=== PATIENT | male | born 1950 | race Caucasian/White ===

== ENCOUNTER 2017-01-05 17:40 | Emergency (ER) | payer MEDICARE ==
[~2017-01-05] VITALS: Ht 170.2 cm; Wt 119.7 kg
[~2017-01-05 17:40] MED LIST: ASP325T PO; CYCL10TA9 PO; ETOD400T PO; EZET1TAB44 PO; HYDR-1231 PO; HYDR-2997 PO; INSASP10V SQ; INSU100I16 SQ; LISI40TA PO; MTF500T PO
[2017-01-05] MEDS ORDERED: fentaNYL INJECTION 100 MCG/2 ML AMP IVP STA (18:10)
--- NOTE | 2017-01-05 18:12 | ED Lower Extremity ---
General Chief Complaint: Lower Extremity Stated Complaint: POST OP/R FOOT PAIN AND TOE DISCOLORATION Nursing Triage Note: pt states his right big toe has been turning colors for approx. 3 days. toe appears blue, pulses are present. cap refill less than 3 seconds. pt states his whole right leg/foot/ankle are sore Nursing Sepsis Screen: No Definite Risk Source: patient Exam Limitations: other (PT DOES NOT KNOW ANY OF HIS MEDICATIONS AND DID NOT BRING LIST) History of Present Illness Time seen by provider: 17:55 Initial Comments PT ARRIVES VIA POV FROM HOME C/O PAIN TO RIGHT FOOT AND LEFT LEG FOR THE LAST 2-3 DAYS--STATES MOST PAIN IS IN HEEL, TOES AND CALF STATES HE CANNOT SLEEP DUE TO PAIN NO PARESTHESIAS OR MOTOR DEFICITS, FOOT IS VERY SENSITIVE TO LIGHT TOUCH NO SWELLING NO INJURY PT HAD LOWER BACK SURGERY [address] BUTT AT [facility]. PT STATES HE HAS BEEN HAVING SOME PAIN FROM HIS RIGHT HIP DOWN HIS LEG FOR THE LAST 1-2 WEEKS, BUT HAS NOT BEEN THIS BAD HAS ONLY SLIGHT PAIN IN HIS HIP/LOWER BACK WAS SEEN A WEEK AGO AT DR. BUTT'S OFFICE FOR STAPLE REMOVAL, AND WAS HAVING THIS PAIN THEN, JUST NOT BAD AND WAS NOT ADDRESSED AT THAT TIME. . HAS NOT ATTEMPTED TO FOLLOW UP WITH HER SINCE THEN FOR THIS PROBLEM--HAS ROUTINE POST OP APPOINTMENT 01/24/17 PT LATER STATES HE RAN OUT OF HIS HYDROCODONE 2-3 DAYS AGO PT LATER STATES HE HAD THIS PAIN PRIOR TO SURGERY PER EXTERNAL MED HISTORY, PT HAS BEEN PRESCRIBED NAPROXEN, BACLOFEN, GABAPENTIN AND HYDROCODONE SINCE SURGERY PT IS DIABETIC, BUT HAS NEVER HAD PROBLEMS WITH NEUROPATHY. PCP: [facility]. PIERCE PALENCIA Allergies and Home Medications Allergies Coded Allergies: No Known Drug Allergies (Unverified , 10/08/11) Home Medications Aspirin 325 Mg Tab, 325 MG PO DAILY, (Reported) Etodolac 400 Mg Tablet, 1 EACH PO TID, (Reported) Hydrocodone Bit/Acetaminophen 1 Tab Tablet, 1-2 TAB PO Q6H PRN for PAIN, #20 Prescribed by: JEFERSON VICTOR on 04/09/14 1152 Hydrocodone/Acetaminophen 1 Each Tablet, 1-2 EACH PO Q4H, #20 Prescribed by: SUMIT MANRIQUE on 01/05/17 1905 Insulin Aspart 10 Unit/0.1 Ml Vial, 25 UNIT SQ TID, #1 (Reported) Insulin Detemir 100 Unit/1 Ml Insuln.pen, 60 UNIT SQ DAILY, (Reported) Lisinopril 40 Mg Tablet, 40 MG PO DAILY, (Reported) Metformin Hcl 500 Mg Tab, 1,000 MG PO TID, (Reported) Constitutional: no symptoms reported Respiratory: no symptoms reported Cardiovascular: no symptoms reported Gastrointestinal: no symptoms reported Genitourinary: no symptoms reported Musculoskeletal: see HPI Skin: no symptoms reported Psychiatric/Neurological: No Symptoms Reported Past Gwhntvg-Benvxb-Iltwog Hx Patient Social History Alcohol Use: Denies Use Recreational Drug Use: No Smoking Status: Never a Smoker 2nd Hand Smoke Exposure: No Recent Foreign Travel: No Contact w/Someone Who Travel: No Recent Infectious Disease Expo: No Recent Hopitalizations: Yes (previous clean heart caths, back surgery approx 3 weeks ago) Seasonal Allergies Seasonal Allergies: No Surgeries HX Surgeries: Yes (LEFT KNEE SCOPE; LUMBAR SPINE SURGERY 12/2016--DR. BUTT/ [facility]; CARDIAC CATH X 2) Surgeries: Cardiac, Neurological, Orthopedic Respiratory Hx Respiratory Disorders: Yes (REFUSES TO WEAR CPAP) Respiratory Disorders: Sleep Apnea Cardiovascular Hx Cardiac Disorders: Yes (HEART CATH X2) Cardiac Disorders: Hypertension Neurological Hx Neurological Disorders: No Reproductive System Hx Reproductive Disorders: No Genitourinary Hx Genitourinary Disorders: No Gastrointestinal Hx Gastrointestinal Disorders: No Musculoskeletal Hx Musculoskeletal Disorders: Yes Musculoskeletal Disorders: Degenerate Disk Disease, Chronic Back Pain Endocrine Hx Endocrine Disorders: Yes Endocrine Disorders: Diabetes, Insulin dep HEENT HX ENT Disorders: No Cancer Hx Cancer: No Psychosocial Hx Psychiatric Problems: No Integumentary HX Skin/Integumentary Disorder: No Blood Transfusions Hx Blood Disorders: No Physical Exam Vital Signs Vital Sign - Last 12Hours 01/05/17 17:55 Temp 97.5 Pulse 81 Resp 20 B/P (MAP) 173/72 Pulse Ox 98 O2 Delivery Room Air Capillary Refill : Less Than 3 Seconds General Appearance: WD/WN, no apparent distress, obese Cardiovascular: normal peripheral pulses, regular rate, rhythm, no edema, no JVD, no murmur, other (PULSES +3/4 BILATERALLY) Respiratory: normal breath sounds, no respiratory distress, no accessory muscle use Gastrointestinal: non tender, soft Hips: bilateral hip non-tender, bilateral hip normal inspection, bilateral hip normal range of motion, bilateral hip no evidence of injury Legs: left leg normal inspection, right leg other (MILD RIGHT CALF TENDERNESS. NO CORDING. NEGATIVE NILES'S ) Knees: bilateral knee non-tender, bilateral knee normal inspection, bilateral knee normal range of motion, bilateral knee no evidence of injury Ankles: bilateral ankle non-tender, bilateral ankle normal inspection, bilateral ankle normal range of motion, bilateral ankle no evidence of injury Feet: right foot other (TENDERNESS TO DORSUM AND HEEL OF RIGHT FOOT. NO SKIN DISCOLORATION. NO SORES/WOUNDS. MOTOR/SENSORY/VASCULAR INTACT. RIGHT GREAT TOE WITH MYCOTIC CHANGES. ) Neurologic/Tendon: normal sensation (HYPERSENSITIVE TO PALPATION OF RIGHT FOOT) , normal motor functions, normal tendon functions Neurologic/Psychiatric: harness cutter II-XII nml as tested, no motor/sensory deficits, alert, normal mood/affect, oriented x 3 Skin: normal color, warm/dry Progress/Results/Core Measures Results/Orders Lab Results Laboratory Tests Test 01/05/17 18:13 Range/Units White Blood Count 8.3 4.3-11.0 10^3/uL Red Blood Count 4.46 4.35-5.85 10^6/uL Hemoglobin 12.5 L 13.3-17.7 G/DL Hematocrit 38 L 40-54 % Mean Corpuscular Volume 85 80-99 FL Mean Corpuscular Hemoglobin 28 25-34 PG Mean Corpuscular Hemoglobin Concent 33 32-36 G/DL Red Cell Distribution Width 13.7 10.0-14.5 % Platelet Count 249 130-400 10^3/uL Mean Platelet Volume 10.6 H 7.4-10.4 FL Neutrophils (%) (Auto) 66 42-75 % Lymphocytes (%) (Auto) 27 12-44 % Monocytes (%) (Auto) 5 0-12 % Eosinophils (%) (Auto) 2 0-10 % Basophils (%) (Auto) 1 0-10 % Neutrophils # (Auto) 5.5 1.8-7.8 X 10^3 Lymphocytes # (Auto) 2.2 1.0-4.0 X 10^3 Monocytes # (Auto) 0.4 0.0-1.0 X 10^3 Eosinophils # (Auto) 0.2 0.0-0.3 10^3/uL Basophils # (Auto) 0.1 0.0-0.1 10^3/uL Prothrombin Time 14.6 12.2-14.7 SEC INR Comment 1.2 0.8-1.4 Activated Partial Thromboplast Time 31 24-35 SEC Sodium Level 142 135-145 MMOL/L Potassium Level 4.7 3.6-5.0 MMOL/L Chloride Level 107 98-107 MMOL/L Carbon Dioxide Level 22 21-32 MMOL/L Anion Gap 13 5-14 MMOL/L Blood Urea Nitrogen 22 H 7-18 MG/DL Creatinine 1.59 H 0.60-1.30 MG/DL Estimat Glomerular Filtration Rate 44 BUN/Creatinine Ratio 14 Glucose Level 145 H 70-105 MG/DL Calcium Level 9.4 8.5-10.1 MG/DL Magnesium Level 2.0 1.8-2.4 MG/DL Total Bilirubin 0.4 0.1-1.0 MG/DL Aspartate Amino Transf (AST/SGOT) 23 5-34 U/L Alanine Aminotransferase (ALT/SGPT) 17 0-55 U/L Alkaline Phosphatase 71 40-136 U/L Total Protein 6.8 6.4-8.2 G/DL Albumin 3.8 3.2-4.5 G/DL My Orders Orders - SUMIT MANRIQUE DO Saline Lock/Iv-Start (01/05/17 18:07) Cbc With Automated Diff (01/05/17 18:07) Comprehensive Metabolic Panel (01/05/17 18:07) Magnesium (01/05/17 18:07) Protime With Inr (01/05/17 18:07) Partial Thromboplastin Time (01/05/17 18:07) Us Venous Lower Ext Rt (01/05/17 18:07) Fentanyl Injection (Sublimaze Injection (01/05/17 18:10) Vital Signs/I&O Vital Sign - Last 12Hours 01/05/17 01/05/17 17:55 19:27 Temp 97.5 97.6 Pulse 81 73 Resp 20 18 B/P (MAP) 173/72 Pulse Ox 98 97 O2 Delivery Room Air Blood Pressure Mean: 105 Progress Note : Progress Note COMPLETE PAIN RELIEF WITH FENTANYL Diagnostic Imaging Comments RIGHT LEG ULTRASOUND/DOPPLER--NO ACUTE PROCESS, PER RADIOLOGIST REPORT @ 1851 Reviewed: Reviewed by Me Departure Impression Impression: Primary Impression: CHRONIC LOWER BACK PAIN WITH RIGHT SIDED RADICULAR PAIN Additional Impression: S/P LUMBAR SPINE SURGERY Disposition: 01 HOME, SELF-CARE Condition: Improved Departure-Patient Inst. Referrals: [facility] (PCP/Family) Primary Care Physician Patient Instructions: Low Back Pain (DC), Radiculopathy (DC) Add. Discharge Instructions: CONTINUE YOUR REGULAR MEDICATIONS PRESCRIBED--INCLUDING NAPROXEN ( ANTI- INFLAMMATORY ) , GABAPENTIN( NERVE PAIN ) AND BACLOFEN ( MUSCLE RELAXANT ) FOLLOW UP WITH DR. BUTT THIS WEEK FOR FURTHER CARE All discharge instructions reviewed with patient and/or family. Voiced understanding. Scripts Hydrocodone/Acetaminophen (Hydrocodon-Acetaminoph 7.5-325) 1 Each Tablet 1-2 EACH PO Q4H for Pain, #20 TAB Prov: SUMIT MANRIQUE DO 01/05/17 SUMIT MANRIQUE DO January 05, 2017 18:12
[2017-01-05 18:32] LABS: BASOPHILS # (AUTO) 0.1 10^3/uL (0.0-0.1); BASOPHILS % (AUTO) 1 % (0-10); EOSINOPHILS # (AUTO) 0.2 10^3/uL (0.0-0.3); EOSINOPHILS % (AUTO) 2 % (0-10); LYMPHOCYTES # (AUTO) 2.2 X 10^3 (1.0-4.0); LYMPHOCYTES % (AUTO) 27 % (12-44); MEAN CORPUSCULAR HEMOGLOBIN 28 PG (25-34); MEAN CORPUSCULAR HGB CONC 33 G/DL (32-36); MEAN CORPUSCULAR VOLUME 85 FL (80-99); MEAN PLATELET VOLUME 10.6 FL (7.4-10.4); MONOCYTES # (AUTO) 0.4 X 10^3 (0.0-1.0); MONOCYTES % (AUTO) 5 % (0-12); NEUTROPHILS # (AUTO) 5.5 X 10^3 (1.8-7.8); NEUTROPHILS % (AUTO) 66 % (42-75); PLATELET COUNT 249 10^3/uL (130-400); RED BLOOD COUNT 4.46 10^6/uL (4.35-5.85); RED CELL DISTRIBUTION WIDTH 13.7 % (10.0-14.5); WHITE BLOOD COUNT 8.3 10^3/uL (4.3-11.0)
--- NOTE | 2017-01-05 18:43 | Diagnostic Imaging Report ---
PROCEDURE: US right lower extremity venous. TECHNIQUE: Multiple real-time grayscale images were obtained over the right lower extremity in various projections. Additional duplex Doppler and color Doppler images were also obtained. INDICATION: Right leg pain. COMPARISON STUDIES: None. FINDINGS: Right lower extremity venous Doppler with color-flow Doppler, compression, augmentation, and grayscale imaging demonstrates no evidence of DVT. No fluid collections are present. IMPRESSION: Negative right lower extremity venous Doppler. Dictated by: Dictated on workstation # [id number]
[2017-01-05 18:59] LABS: ALBUMIN 3.8 G/DL (3.2-4.5); BILIRUBIN,TOTAL 0.4 MG/DL (0.1-1.0); CALCIUM 9.4 MG/DL (8.5-10.1); CREATININE SERUM 1.59 MG/DL (0.60-1.30); POTASSIUM 4.7 MMOL/L (3.6-5.0); TOTAL PROTEIN 6.8 G/DL (6.4-8.2)
[2017-01-05] MEDS ORDERED: HYDR-3816 PO (19:05)
[2017-01-05 19:27] VITALS: BP 169/79
[2017-01-05 20:56] LABS: INR 1.2 (0.8-1.4); PROTHROMBIN TIME PATIENT 14.6 SEC (12.2-14.7)
== END 2017-01-05 19:27 | disposition home or self-care (01) ==
LOC: EDUNIT# 17:40 → ER 17:42
DX: M54.16 Radiculopathy, lumbar region (principal); M25.571 Pain in right ankle and joints of right foot; I10 Essential (primary) hypertension; E11.9 Type 2 diabetes mellitus without complications; Z79.82 Long term (current) use of aspirin; Z79.4 Long term (current) use of insulin; Z79.84 Long term (current) use of oral hypoglycemic drugs; Z98.890 Other specified postprocedural states
CPT/HCPCS: 36415; 80053; 83735; 85025; 85610; 85730

== ENCOUNTER 2017-06-06 11:25 | Emergency (ER) | payer MEDICARE ==
[~2017-06-06] VITALS: Ht 170.2 cm; Wt 122.9 kg
[~2017-06-06 11:25] MED LIST changes: +HYDR-3816 PO
--- OUTSIDE RECORDS SUMMARY | 2017-06-06 11:31 | XMS REPORT ---
Author Author NISHI PALENCIA [facility] Address [address] [place] [address] Care Team Providers Care Patent Prosecution Attorney Name Role Phone NISHI PALENCIA Unavailable PROBLEMS Type Condition ICD9-CM Code [id number] Code Onset Dates Condition Status SNOMED Code Problem Type 2 diabetes mellitus with hyperglycemia E11.65 Active 947141076 Problem Lumbago with sciatica, left side M54.42 Active 791544298 Problem Controlled type 2 diabetes mellitus without complication, without long -term current use of insulin E11.9 Active 240071758 Problem Type 2 diabetes mellitus with diabetic neuropathy, unspecified E11.40 Active 84865124 Problem Diabetes type 2, controlled E11.9 Active 18177183 Problem Diabetic mononeuropathy associated with type 2 diabetes mellitus E11.41 Active 845575459 Problem Neuropathy G62.9 Active 340434833 Problem Type 2 diabetes mellitus without complications E11.9 Active 429892245 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 712938496 Problem Slow transit constipation K59.01 Active 59638067 Problem Other chronic pain G89.29 Active 47401992 ALLERGIES No Known Allergies SOCIAL HISTORY Never Assessed PLAN OF CARE VITAL SIGNS Height 67 in 2016-10-05 Weight 263 lbs 2016-10-05 Temperature 97.9 degrees Fahrenheit 2016-10-05 Heart Rate 78 bpm 2016-10-05 Respiratory Rate 20 2016-10-05 BMI 41.19 kg/m2 2016-10-05 Blood pressure systolic 154 mmHg 2016-10-05 Blood pressure diastolic 86 mmHg 2016-10-05 MEDICATIONS Medication Instructions Dosage Frequency Start Date End Date Duration Status BD Ultra-Fine Pen [place] 29G X 12.7MM as directed 6h May, Active Humalog KwikPen 100 UNIT/ML Subcutaneous 3 times a day 30 units 8h December, Active Lisinopril 40 mg Orally Once a day 1 tablet 24h May, Active Metformin HCl 1000 MG Orally Twice a day 1 tablet with meals 12h May, Active Levemir FlexTouch 100 UNIT/ML Subcutaneous Once a day 90 units 24h May, Active [place] 5-325 MG Orally every 6 hrs 1 tablet as needed 6h Sep, Active Neurontin 300 MG Orally Three times a day as directed 8h Jun, Active Lipitor 20 mg Orally Once a day 1 tablet 24h May, Active Aspirin 325 MG Orally Once a day 1 tablet 24h Active RESULTS Name Result Date Reference Range A1C (IN HOUSE) 2016-10-05 A1C IN HOUSE 9.3 4.3 - 5.6 % Previous A1c 9.5 Lot [id number] Exp date 06/2018 [employer] 2016-10-05 PROCEDURES Procedure Date Ordered Result Body Site GLYCATED HEMOGLOBIN TEST Oct 05, 2016 No Charge Oct 05, 2016 FQ VISIT ESTABLISHED PATIENT Oct 05, 2016 IMMUNIZATIONS No Known Immunizations MEDICAL (GENERAL) HISTORY Type Description Date Medical History type II diabetes Medical History hyperlipidemia Medical History hypertension Medical History chronic pain back/knees Surgical History right knee arthroscopy 1994 Surgical History heart cath, 2010--clear Surgical History left knee arthroscopy 2010 Surgical History back surgery with rods 12/2016 Hospitalization History surgeries
--- OUTSIDE RECORDS SUMMARY | 2017-06-06 11:31 | XMS REPORT ---
Author Author NISHI PALENCIA [facility] Address [address] [place] [address] Care Team Providers Care Public Health Service Officer Name Role Phone NISHI PALENCIA Unavailable PROBLEMS Type Condition ICD9-CM Code [id number] Code Onset Dates Condition Status SNOMED Code Problem Diabetes type 2, controlled E11.9 Active 02710986 Problem Controlled type 2 diabetes mellitus without complication, without long -term current use of insulin E11.9 Active 139740708 Problem Type 2 diabetes mellitus with hyperglycemia E11.65 Active 170449283 Problem Type 2 diabetes mellitus with diabetic neuropathy, unspecified E11.40 Active 58729875 Problem Neuropathy G62.9 Active 161152097 Problem Slow transit constipation K59.01 Active 07836643 Problem 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 Active 387835593 Problem Lumbago with sciatica, left side M54.42 Active 299255006 Problem Other chronic pain G89.29 Active 33705490 Problem Type 2 diabetes mellitus without complications E11.9 Active 163341173 ALLERGIES Substance Reaction Event Type Date Status N.K.D.A. Unknown Non Drug Allergy Aug, Unknown SOCIAL HISTORY No smoking Hx information available PLAN OF CARE VITAL SIGNS Height 67 in 2016-09-07 Weight 263.5 lbs 2016-09-07 Temperature 98.1 degrees Fahrenheit 2016-09-07 Heart Rate 78 bpm 2016-09-07 Respiratory Rate 22 2016-09-07 BMI 41.27 kg/m2 2016-09-07 Blood pressure systolic 158 mmHg 2016-09-07 Blood pressure diastolic 82 mmHg 2016-09-07 MEDICATIONS Medication Instructions Dosage Frequency Start Date End Date Duration Status Metformin HCl 1000 MG Orally Twice a day 1 tablet with meals 12h May, Active Lisinopril 40 mg Orally Once a day 1 tablet 24h May, Active Neurontin 300 MG Orally Three times a day as directed 8h Jun, Active Levemir FlexTouch 100 UNIT/ML Subcutaneous Once a day 90 units 24h May, Active Lipitor 20 mg Orally Once a day 1 tablet 24h May, Active Aspirin 325 MG Orally Once a day 1 tablet 24h Active Humalog KwikPen 100 UNIT/ML Subcutaneous 3 times a day 30 units 8h December, Active BD Ultra-Fine Pen [place] 29G X 12.7MM as directed 6h May, Active [place] 5-325 MG Orally every 6 hrs 1 tablet as needed 6h Aug, Active RESULTS No Results PROCEDURES Procedure Date Ordered Related Diagnosis Body Site [facility] VISIT ESTABLISHED PATIENT Sep 07, 2016 Office Visit, Est Pt., Level 3 Sep 07, 2016 IMMUNIZATIONS No Known Immunizations
--- OUTSIDE RECORDS SUMMARY | 2017-06-06 11:33 | XMS REPORT ---
Author Author NISHI PALENCIA [facility] Address [address] [place] [address] Care Team Providers Care Manager Corporate Responsibility Name Role Phone NISHI PALENCIA Unavailable PROBLEMS Type Condition ICD9-CM Code [id number] Code Onset Dates Condition Status SNOMED Code Problem Diabetes type 2, controlled E11.9 Active 73787394 Problem Controlled type 2 diabetes mellitus without complication, without long -term current use of insulin E11.9 Active 366052183 Problem Type 2 diabetes mellitus with hyperglycemia E11.65 Active 164695608 Problem Type 2 diabetes mellitus with diabetic neuropathy, unspecified E11.40 Active 84747236 Problem Neuropathy G62.9 Active 671336305 Problem Slow transit constipation K59.01 Active 35560203 Problem 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 Active 030795201 Problem Lumbago with sciatica, left side M54.42 Active 830223126 Problem Other chronic pain G89.29 Active 48294360 Problem Type 2 diabetes mellitus without complications E11.9 Active 745576720 ALLERGIES Substance Reaction Event Type Date Status N.K.D.A. Unknown Non Drug Allergy Jul, Unknown SOCIAL HISTORY No smoking Hx information available PLAN OF CARE VITAL SIGNS Height 67 in 2016-08-06 Weight 272.3 lbs 2016-08-06 Temperature 98.3 degrees Fahrenheit 2016-08-06 Heart Rate 78 bpm 2016-08-06 Respiratory Rate 20 2016-08-06 BMI 42.64 kg/m2 2016-08-06 Blood pressure systolic 162 mmHg 2016-08-06 Blood pressure diastolic 78 mmHg 2016-08-06 MEDICATIONS Medication Instructions Dosage Frequency Start Date End Date Duration Status Levemir FlexTouch 100 UNIT/ML Subcutaneous Once a day 90 units 24h May, Active Lipitor 20 mg Orally Once a day 1 tablet 24h May, Active Lisinopril 40 mg Orally Once a day 1 tablet 24h May, Active BD Ultra-Fine Pen [place] 29G X 12.7MM as directed 6h May, Active Metformin HCl 1000 MG Orally Twice a day 1 tablet with meals 12h 05 May, 2015 Active Neurontin 300 MG Orally Three times a day as directed 8h 18 Jun, 2015 Active Humalog KwikPen 100 UNIT/ML Subcutaneous 3 times a day 30 units 8h December, Active Aspirin 325 MG Orally Once a day 1 tablet 24h Active Naproxen 500 MG 1 tablet 12h 15 Apr, 2014 Active [place] 5-325 MG Orally every 6 hrs 1 tablet as needed 6h 07 Jun, 2016 Active RESULTS No Results PROCEDURES Procedure Date Ordered Related Diagnosis Body Site [facility] VISIT ESTABLISHED PATIENT Aug 06, 2016 Office Visit, Est Pt., Level 3 Aug 06, 2016 IMMUNIZATIONS No Known Immunizations
--- OUTSIDE RECORDS SUMMARY | 2017-06-06 11:33 | XMS REPORT ---
Author Author NISHI PALENCIA [facility] Address [address] [place] [address] Care Team Providers Care Power Sewing Machine Operator Name Role Phone NISHI PALENCIA Unavailable PROBLEMS Type Condition ICD9-CM Code [id number] Code Onset Dates Condition Status SNOMED Code Problem Diabetes type 2, controlled E11.9 Active 12946139 Problem Controlled type 2 diabetes mellitus without complication, without long -term current use of insulin E11.9 Active 054469634 Problem Type 2 diabetes mellitus with hyperglycemia E11.65 Active 989399216 Problem Type 2 diabetes mellitus with diabetic neuropathy, unspecified E11.40 Active 24622029 Problem Neuropathy G62.9 Active 414318789 Problem Slow transit constipation K59.01 Active 88587171 Problem termite helper 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 Active 095462696 Problem Lumbago with sciatica, left side M54.42 Active 633485919 Problem Other chronic pain G89.29 Active 10626651 Problem Type 2 diabetes mellitus without complications E11.9 Active 489578771 ALLERGIES Unknown Allergies SOCIAL HISTORY No smoking Hx information available PLAN OF CARE VITAL SIGNS MEDICATIONS Unknown Medications RESULTS No Results PROCEDURES No Known procedures IMMUNIZATIONS No Known Immunizations
--- OUTSIDE RECORDS SUMMARY | 2017-06-06 11:33 | XMS REPORT ---
Author Author KARLEY KUMARI [facility] Address Unknown Care Team Providers Care Provisioning Specialist Name Role Phone KARLEY KUMARI Unavailable PROBLEMS Type Condition ICD9-CM Code [id number] Code Onset Dates Condition Status SNOMED Code Problem Diabetes type 2, controlled E11.9 Active 12944226 Problem Controlled type 2 diabetes mellitus without complication, without long -term current use of insulin E11.9 Active 618631004 Problem Type 2 diabetes mellitus with hyperglycemia E11.65 Active 719817278 Problem Type 2 diabetes mellitus with diabetic neuropathy, unspecified E11.40 Active 42039099 Problem Neuropathy G62.9 Active 441957765 Problem Slow transit constipation K59.01 Active 63300687 Problem open soaper tender 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 Active 268748763 Problem Lumbago with sciatica, left side M54.42 Active 786716429 Problem Other chronic pain G89.29 Active 84666534 Problem Type 2 diabetes mellitus without complications E11.9 Active 007297682 ALLERGIES Substance Reaction Event Type Date Status N.K.D.A. Unknown Non Drug Allergy Aug, Unknown SOCIAL HISTORY No smoking Hx information available PLAN OF CARE Activity Details Follow Up prn Reason:extraction VITAL SIGNS Height 67 in 2016-08-25 Blood pressure systolic 173 mmHg 2016-08-25 Blood pressure diastolic 96 mmHg 2016-08-25 MEDICATIONS Unknown Medications RESULTS No Results PROCEDURES Procedure Date Ordered Related Diagnosis Body Site Dental no charge Aug 25, 2016 IMMUNIZATIONS No Known Immunizations
--- OUTSIDE RECORDS SUMMARY | 2017-06-06 11:33 | XMS REPORT ---
Author Author JAIDEN MARTINEZ Organization [facility] Address [address] [place] [address] Care Team Providers Care Oncology Physician Assistant Name Role Phone CORA MARTINEZICE Unavailable PROBLEMS Type Condition ICD9-CM Code [id number] Code Onset Dates Condition Status SNOMED Code Problem Diabetes type 2, controlled E11.9 Active 44710856 Problem Controlled type 2 diabetes mellitus without complication, without long -term current use of insulin E11.9 Active 502676980 Problem Type 2 diabetes mellitus with hyperglycemia E11.65 Active 937373893 Problem Type 2 diabetes mellitus with diabetic neuropathy, unspecified E11.40 Active 69021516 Problem Neuropathy G62.9 Active 529377438 Problem Slow transit constipation K59.01 Active 98560372 Problem 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 Active 258595602 Problem Lumbago with sciatica, left side M54.42 Active 730730731 Problem Other chronic pain G89.29 Active 48524323 Problem Type 2 diabetes mellitus without complications E11.9 Active 417807022 ALLERGIES Substance Reaction Event Type Date Status N.K.D.A. Unknown Non Drug Allergy Aug, Unknown SOCIAL HISTORY No smoking Hx information available PLAN OF CARE Activity Details Follow Up prn Reason: VITAL SIGNS Height 67 in 2016-08-12 Weight 364.6 lbs 2016-08-12 Temperature 98.5 degrees Fahrenheit 2016-08-12 Heart Rate 88 bpm 2016-08-12 Respiratory Rate 20 2016-08-12 BMI 57.10 kg/m2 2016-08-12 Blood pressure systolic 146 mmHg 2016-08-12 Blood pressure diastolic 80 mmHg 2016-08-12 MEDICATIONS Medication Instructions Dosage Frequency Start Date End Date Duration Status [place] 5-325 MG Orally every 6 hrs 1 tablet as needed 6h 07 Jun, 2016 Active Naproxen 500 MG 1 tablet 12h 15 Apr, 2014 Active BD Ultra-Fine Pen [place] 29G X 12.7MM as directed 6h May, Active Metformin HCl 1000 MG Orally Twice a day 1 tablet with meals 12h May, Active Levemir FlexTouch 100 UNIT/ML Subcutaneous Once a day 90 units 24h May, Active Humalog KwikPen 100 UNIT/ML Subcutaneous 3 times a day 30 units 8h December, Active Lisinopril 40 mg Orally Once a day 1 tablet 24h May, Active Lipitor 20 mg Orally Once a day 1 tablet 24h May, Active Amoxicillin 500 MG Orally TID 2 tablets first dose, then 1 tablet three times per day 8h Aug, Aug, 10 day(s) Active Neurontin 300 MG Orally Three times a day as directed 8h Jun, Active Aspirin 325 MG Orally Once a day 1 tablet 24h Active RESULTS No Results PROCEDURES Procedure Date Ordered Related Diagnosis Body Site [facility] VISIT ESTABLISHED PATIENT Aug 12, 2016 Office Visit, Est Pt., Level 3 Aug 12, 2016 IMMUNIZATIONS No Known Immunizations
--- OUTSIDE RECORDS SUMMARY | 2017-06-06 11:36 | XMS REPORT ---
Author Author KARLEY KUMARI [facility] [address] DENTAL Address Unknown Care Team Providers Care Automatic Developer Name Role Phone KARLEY KUMARI Unavailable PROBLEMS Type Condition ICD9-CM Code FST16-UF Code Onset Dates Condition Status SNOMED Code Problem Diabetes type 2, controlled E11.9 Active 39829667 Problem Controlled type 2 diabetes mellitus without complication, without long -term current use of insulin E11.9 Active 516001254 Problem Type 2 diabetes mellitus with hyperglycemia E11.65 Active 085391259 Problem Type 2 diabetes mellitus with diabetic neuropathy, unspecified E11.40 Active 57009871 Problem Neuropathy G62.9 Active 253722477 Problem Slow transit constipation K59.01 Active 39575694 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 Unknown Non Drug Allergy Aug, Unknown SOCIAL HISTORY No smoking Hx information available PLAN OF CARE Activity Details Follow Up prn Reason:TE #26 VITAL SIGNS Blood pressure systolic 141 mmHg 2016-08-12 Blood pressure diastolic 71 mmHg 2016-08-12 MEDICATIONS Medication Instructions Dosage Frequency Start Date End Date Duration Status Morrow 5-325 MG Orally every 6 hrs 1 tablet as needed 6h Jun, Active Aspirin 325 MG Orally Once a day 1 tablet 24h Active Metformin HCl 1000 MG Orally Twice a day 1 tablet with meals 12h May, Active Neurontin 300 MG Orally Three times a day as directed 8h Jun, Active Humalog KwikPen 100 UNIT/ML Subcutaneous 3 times a day 30 units 8h December, Active BD Ultra-Fine Pen Jasper 29G X 12.7MM as directed 6h May, Active Levemir FlexTouch 100 UNIT/ML Subcutaneous Once a day 90 units 24h May, Active Naproxen 500 MG 1 tablet 12h 15 Apr, 2014 Active Amoxicillin 500 MG Orally TID 2 tablets first dose, then 1 tablet three times per day 8h Aug, Aug, 10 day(s) Active Lisinopril 40 mg Orally Once a day 1 tablet 24h May, Active Lipitor 20 mg Orally Once a day 1 tablet 24h May, Active RESULTS No Results PROCEDURES Procedure Date Ordered Related Diagnosis Body Site LTD ORAL EVALUATION - PROBLEM FOCUS Aug 12, 2016 INTRAORL-PERIAPICAL 1 FILM 24179 Aug 12, 2016 IMMUNIZATIONS No Known Immunizations
--- OUTSIDE RECORDS SUMMARY | 2017-06-06 11:37 | XMS REPORT | Continuity of Care Document ---
Author Author [facility] Organization [facility] Address Unknown Phone Unavailable Allergies Active Description Code Type Severity Reaction Onset Reported/Identified Relationship to Patient Clinical Status Yes No Known Drug Allergies [id number] Drug Allergy Unknown N/ A 10/08/2011 Medications Problems Date Dx Coded Attending Type Code Diagnosis Diagnosed By 02/09/2008 250.02 DIABETES MELLITUS TYPE II - UNCOMPLICATED, UNCONTROLLED 02/09/2008 ABBE CARO DO 250.02 DIABETES MELLITUS TYPE II - UNCOMPLICATED, UNCONTROLLED 02/09/2008 250.02 DIABETES MELLITUS TYPE II - UNCOMPLICATED, UNCONTROLLED 02/09/2008 ABBE CARO DO 250.02 DIABETES MELLITUS TYPE II - UNCOMPLICATED, UNCONTROLLED 02/09/2008 ABBE CARO DO 250.02 DIABETES MELLITUS TYPE II - UNCOMPLICATED, UNCONTROLLED 02/09/2008 ABBE CARO DO 250.02 DIABETES MELLITUS TYPE II - UNCOMPLICATED, UNCONTROLLED 02/09/2008 250.02 DIABETES MELLITUS TYPE II - UNCOMPLICATED, UNCONTROLLED 02/09/2008 250.02 DIABETES MELLITUS TYPE II - UNCOMPLICATED, UNCONTROLLED 02/09/2008 ABBE CARO DO 250.02 DIABETES MELLITUS TYPE II - UNCOMPLICATED, UNCONTROLLED 02/09/2008 DEANA NEGRETE APRN 250.02 DIABETES MELLITUS TYPE II - UNCOMPLICATED, UNCONTROLLED 02/09/2008 NISHI PALENCIA APRN 250.02 DIABETES MELLITUS TYPE II - UNCOMPLICATED , UNCONTROLLED 02/09/2008 NISHI PALENCIA APRN 250.02 DIABETES MELLITUS TYPE II - UNCOMPLICATED , UNCONTROLLED 02/09/2008 NISHI PALENCIA APRN 250.02 DIABETES MELLITUS TYPE II - UNCOMPLICATED , UNCONTROLLED 02/09/2008 NISHI PALENCIA APRN 250.02 DIABETES MELLITUS TYPE II - UNCOMPLICATED , UNCONTROLLED 02/09/2008 ZULMA PATINO APRN 250.02 DIABETES MELLITUS TYPE II - UNCOMPLICATED, UNCONTROLLED 02/09/2008 NISHI PALENCIA APRN 250.02 DIABETES MELLITUS TYPE II - UNCOMPLICATED , UNCONTROLLED 02/09/2008 NISHI PALENCIA APRN 250.02 DIABETES MELLITUS TYPE II - UNCOMPLICATED , UNCONTROLLED 02/09/2008 NISHI PALENCIA APRN 250.02 DIABETES MELLITUS TYPE II - UNCOMPLICATED , UNCONTROLLED 02/09/2008 NISHI PALENCIA APRN T 250.02 DIABETES MELLITUS TYPE II - UNCOMPLICATED , UNCONTROLLED 02/09/2008 NISHI PALENCIA APRN 250.02 DIABETES MELLITUS TYPE II - UNCOMPLICATED , UNCONTROLLED 05/15/2008 250.00 DIABETES MELLITUS 05/15/2008 CARO DO, ABBE K 250.00 DIABETES MELLITUS 05/15/2008 250.00 DIABETES MELLITUS 05/15/2008 CARO DO, ABBE K 250.00 DIABETES MELLITUS POORLY CONTROLLED 05/15/2008 CARO DO, ABBE K 250.00 DIABETES MELLITUS POORLY CONTROLLED 05/15/2008 CARO DO, ABBE K 250.00 DIABETES MELLITUS POORLY CONTROLLED 05/15/2008 250.00 DIABETES MELLITUS POORLY CONTROLLED 05/15/2008 250.00 DIABETES MELLITUS POORLY CONTROLLED 05/15/2008 CARO DO, ABBE K 250.00 DIABETES MELLITUS POORLY CONTROLLED 05/15/2008 DEANA NEGRETE APRN N 250.00 DIABETES MELLITUS POORLY CONTROLLED 05/15/2008 NISHI PALENCIA APRN T 250.00 DIABETES MELLITUS POORLY CONTROLLED 05/15/2008 NISHI PALENCIA APRN T 250.00 DIABETES MELLITUS POORLY CONTROLLED 05/15/2008 NISHI PALENCIA APRN T 250.00 DIABETES MELLITUS POORLY CONTROLLED 05/15/2008 NISHI PALENCIA APRN T 250.00 DIABETES MELLITUS POORLY CONTROLLED 05/15/2008 ZULMA PATINO APRN 250.00 DIABETES MELLITUS POORLY CONTROLLED 05/15/2008 NISHI PALENCIA APRN T 250.00 DIABETES MELLITUS POORLY CONTROLLED 05/15/2008 NISHI PALENCIA APRN T 250.00 DIABETES MELLITUS POORLY CONTROLLED 05/15/2008 NISHI PALENCIA APRN T 250.00 DIABETES MELLITUS POORLY CONTROLLED 05/15/2008 NISHI PALENCIA APRN T 250.00 DIABETES MELLITUS POORLY CONTROLLED 05/15/2008 NISHI PALENCIA APRN T 250.00 DIABETES MELLITUS POORLY CONTROLLED 09/20/2008 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 FAMILIAL HYPERCHOLESTEROLEMIA 09/20/2008 278.02 OVERWEIGHT 09/20/2008 CARO DO, ABBE K 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 FAMILIAL HYPERCHOLESTEROLEMIA 09/20/2008 CARO DO, ABBE K 278.02 OVERWEIGHT 09/20/2008 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 FAMILIAL HYPERCHOLESTEROLEMIA 09/20/2008 278.02 OVERWEIGHT 09/20/2008 CARO DO, ABBE K 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 FAMILIAL HYPERCHOLESTEROLEMIA 09/20/2008 CAOR DO, ABBE K 278.02 OVERWEIGHT 09/20/2008 CARO DO, ABBE K 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 FAMILIAL HYPERCHOLESTEROLEMIA 09/20/2008 CARO DO, ABBE K 278.02 OVERWEIGHT 09/20/2008 CARO DO, ABBE K 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 FAMILIAL HYPERCHOLESTEROLEMIA 09/20/2008 CARO DO, ABBE K 278.02 OVERWEIGHT 09/20/2008 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 FAMILIAL HYPERCHOLESTEROLEMIA 09/20/2008 278.02 OVERWEIGHT 09/20/2008 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 FAMILIAL HYPERCHOLESTEROLEMIA 09/20/2008 278.02 OVERWEIGHT 09/20/2008 CARO DO, ABBE K 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 FAMILIAL HYPERCHOLESTEROLEMIA 09/20/2008 CARO DO, ABBE K 278.02 OVERWEIGHT 09/20/2008 NICHOLS CASHRADHIKA SPONGE DIVERMARCOS AbadCY N 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 FAMILIAL HYPERCHOLESTEROLEMIA 09/20/2008 MAGDALENA ANDINO APRN, DEANA N 278.02 OVERWEIGHT 09/20/2008 NISHI PALENCIA APRN 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 FAMILIAL HYPERCHOLESTEROLEMIA 09/20/2008 NISHI PALENCIA APRN 278.02 OVERWEIGHT 09/20/2008 NISHI PALENCIA APRN 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 FAMILIAL HYPERCHOLESTEROLEMIA 09/20/2008 NISHI PALENCIA APRN 278.02 OVERWEIGHT 09/20/2008 NISHI PALENCIA APRN 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 FAMILIAL HYPERCHOLESTEROLEMIA 09/20/2008 NISHI PALENCIA APRN T 278.02 OVERWEIGHT 09/20/2008 NISHI PALENCIA APRN T 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 FAMILIAL HYPERCHOLESTEROLEMIA 09/20/2008 NISHI PALENCIA APRN T 278.02 OVERWEIGHT 09/20/2008 LES PATINO APRNRICIA R 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 FAMILIAL HYPERCHOLESTEROLEMIA 09/20/2008 CAREY JOHNSON ZULMA R 278.02 OVERWEIGHT 09/20/2008 NISHI PALENCIA APRN T 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 FAMILIAL HYPERCHOLESTEROLEMIA 09/20/2008 NISHI PALENCIA APRN T 278.02 OVERWEIGHT 09/20/2008 NISHI PALENCIA APRN T 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 FAMILIAL HYPERCHOLESTEROLEMIA 09/20/2008 NISHI PALENCIA APRN T 278.02 OVERWEIGHT 09/20/2008 NISHI PALENCIA APRN T 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 FAMILIAL HYPERCHOLESTEROLEMIA 09/20/2008 NISHI PALENCIA APRN T 278.02 OVERWEIGHT 09/20/2008 NISHI PALENCIA APRN T 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 FAMILIAL HYPERCHOLESTEROLEMIA 09/20/2008 NISHI PALENCIA APRN T 278.02 OVERWEIGHT 09/20/2008 NISHI PALENCIA APRN T 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 FAMILIAL HYPERCHOLESTEROLEMIA 09/20/2008 NISHI PALENCIA APRN T 278.02 OVERWEIGHT 01/24/2009 959.09 Other And Unspecified Injury To Face And Neck 01/24/2009 CARO DOABBE 959.09 Other And Unspecified Injury To Face And Neck 01/24/2009 959.09 Other And Unspecified Injury To Face And Neck 01/24/2009 CARO DOABBE K 959.09 Other And Unspecified Injury To Face And Neck 01/24/2009 CARO DOSTACYA K 959.09 Other And Unspecified Injury To Face And Neck 01/24/2009 CARO DO, ABBE K 959.09 Other And Unspecified Injury To Face And Neck 01/24/2009 959.09 Other And Unspecified Injury To Face And Neck 01/24/2009 959.09 Other And Unspecified Injury To Face And Neck 01/24/2009 ABBE CARO DO 959.09 Other And Unspecified Injury To Face And Neck 01/24/2009 DEANA NEGRETE APRN 959.09 Other And Unspecified Injury To Face And Neck 01/24/2009 NISHI PALENCIA APRN 959.09 Other And Unspecified Injury To Face And Neck 01/24/2009 NISHI PALENCIA APRN 959.09 Other And Unspecified Injury To Face And Neck 01/24/2009 NISHI PALENCIA APRN 959.09 Other And Unspecified Injury To Face And Neck 01/24/2009 NISHI PALENCIA APRN T 959.09 Other And Unspecified Injury To Face And Neck 01/24/2009 ZULMA PATINO APRN 959.09 Other And Unspecified Injury To Face And Neck 01/24/2009 NISHI PALENCIA APRN 959.09 Other And Unspecified Injury To Face And Neck 01/24/2009 NISHI PALENCIA APRN T 959.09 Other And Unspecified Injury To Face And Neck 01/24/2009 NISHI PALENCIA APRN 959.09 Other And Unspecified Injury To Face And Neck 01/24/2009 NISHI PALENCIA APRN T 959.09 Other And Unspecified Injury To Face And Neck 01/24/2009 NISHI PALENCIA APRN 959.09 Other And Unspecified Injury To Face And Neck 11/07/2009 724.2 LUMBAGO 11/07/2009 ABBE CARO DO 724.2 LUMBAGO 11/07/2009 724.2 lower back pain 11/07/2009 CARO DO, ABBE K 724.2 lower back pain 11/07/2009 CARO DO, ABBE K 724.2 lower back pain 11/07/2009 CARO DO, ABBE K 724.2 lower back pain 11/07/2009 724.2 lower back pain 11/07/2009 724.2 lower back pain 11/07/2009 CARO DO, ABBE K 724.2 lower back pain 11/07/2009 MAGDALENA ANDINO SPONGE DIVER, DEANA N 724.2 lower back pain 11/07/2009 SLIME SPONGE DIVER, NISHI T 724.2 lower back pain 11/07/2009 SLIME SPONGE DIVER, NISHI T 724.2 lower back pain 11/07/2009 SLIME SPONGE DIVER, NISHI T 724.2 lower back pain 11/07/2009 SLIME SPONGE DIVER, NISHI T 724.2 lower back pain 11/07/2009 CAREY SPONGE DIVER, ZULMA R 724.2 lower back pain 11/07/2009 SLIME SPONGE DIVER, NISHI T 724.2 lower back pain 11/07/2009 SLIME SPONGE DIVER, NISHI T 724.2 lower back pain 11/07/2009 SLIME SPONGE DIVER, NISHI T 724.2 lower back pain 11/07/2009 SLIME SPONGE DIVER, NISHI T 724.2 lower back pain 11/07/2009 SLIME SPONGE DIVER, NISHI T 724.2 lower back pain 01/21/2010 465.9 Upper Respiratory Infection 01/21/2010 786.2 Cough 01/21/2010 CARO DO, ABBE K 465.9 Upper Respiratory Infection 01/21/2010 CARO DO, ABBE K 786.2 Cough 01/21/2010 465.9 Upper Respiratory Infection 01/21/2010 786.2 Cough 01/21/2010 CARO DO, ABBE K 465.9 Upper Respiratory Infection 01/21/2010 CARO DO, ABBE K 786.2 Cough 01/21/2010 CARO DO, ABBE K 465.9 Upper Respiratory Infection 01/21/2010 CARO DO, ABBE K 786.2 Cough 01/21/2010 CARO DO, ABBE K 465.9 Upper Respiratory Infection 01/21/2010 CARO DO, ABBE K 786.2 Cough 01/21/2010 465.9 Upper Respiratory Infection 01/21/2010 786.2 Cough 01/21/2010 465.9 Upper Respiratory Infection 01/21/2010 786.2 Cough 01/21/2010 CARO DO, ABBE K 465.9 Upper Respiratory Infection 01/21/2010 CARO DO, ABBE K 786.2 Cough 01/21/2010 NICHOLS CASHERO SPONGE DIVER, DEANA N 465.9 Upper Respiratory Infection 01/21/2010 NICHOLS CASHERO SPONGE DIVER, DEANA N 786.2 Cough 01/21/2010 SLIME SPONGE DIVER, NISHI T 465.9 Upper Respiratory Infection 01/21/2010 SLIME SPONGE DIVER, NISHI T 786.2 Cough 01/21/2010 SLIME SPONGE DIVER, NISHI T 465.9 Upper Respiratory Infection 01/21/2010 SLIME SPONGE DIVER, NISHI T 786.2 Cough 01/21/2010 SLIME SPONGE DIVER, NISHI T 465.9 Upper Respiratory Infection 01/21/2010 SLIME SPONGE DIVER, NISHI T 786.2 Cough 01/21/2010 SLIME SPONGE DIVER, NISHI T 465.9 Upper Respiratory Infection 01/21/2010 SLIME SPONGE DIVER, NISHI T 786.2 Cough 01/21/2010 PATINO SPONGE DIVER, ZULMA R 465.9 Upper Respiratory Infection 01/21/2010 PATINO SPONGE DIVER, ZULMA R 786.2 Cough 01/21/2010 SLIME SPONGE DIVER, NISHI T 465.9 Upper Respiratory Infection 01/21/2010 SLIME SPONGE DIVER, NISHI T 786.2 Cough 01/21/2010 SLIME SPONGE DIVER, NISHI T 465.9 Upper Respiratory Infection 01/21/2010 SLIME SPONGE DIVER, NISHI T 786.2 Cough 01/21/2010 SLIME SPONGE DIVER, NISHI T 465.9 Upper Respiratory Infection 01/21/2010 SLIME SPONGE DIVER, NISHI T 786.2 Cough 01/21/2010 SLIME SPONGE DIVER, NISHI T 465.9 Upper Respiratory Infection 01/21/2010 SLIME SPONGE DIVER, NISHI T 786.2 Cough 01/21/2010 SLIME SPONGE DIVER, NISHI T 465.9 Upper Respiratory Infection 01/21/2010 SLIME SPONGE DIVER, NISHI T 786.2 Cough 03/06/2010 110.4 Dermatophytosis, Of Foot 03/06/2010 CARO DO, ABBE K 110.4 Dermatophytosis, Of Foot 03/06/2010 110.4 Dermatophytosis, Of Foot 03/06/2010 CARO ABBE KIRAN K 110.4 Dermatophytosis, Of Foot 03/06/2010 CARO DO, ABBE K 110.4 Dermatophytosis, Of Foot 03/06/2010 CARO DO, ABBE K 110.4 Dermatophytosis, Of Foot 03/06/2010 110.4 Dermatophytosis, Of Foot 03/06/2010 110.4 Dermatophytosis, Of Foot 03/06/2010 CARO DO, ABBE K 110.4 Dermatophytosis, Of Foot 03/06/2010 MAGDALENA ANDINO APRN, DEANA N 110.4 Dermatophytosis, Of Foot 03/06/2010 NISHI PALENCIA APRN 110.4 Dermatophytosis, Of Foot 03/06/2010 NISHI PALENCIA APRN 110.4 Dermatophytosis, Of Foot 03/06/2010 NISHI PALENCIA APRN 110.4 Dermatophytosis, Of Foot 03/06/2010 NISHI PALENCIA APRN 110.4 Dermatophytosis, Of Foot 03/06/2010 ZULMA PATINO APRN 110.4 Dermatophytosis, Of Foot 03/06/2010 NISHI PALENCIA APRN 110.4 Dermatophytosis, Of Foot 03/06/2010 NISHI PALENCIA APRN T 110.4 Dermatophytosis, Of Foot 03/06/2010 NISHI PALENCIA APRN T 110.4 Dermatophytosis, Of Foot 03/06/2010 NISHI PALENCIA APRN 110.4 Dermatophytosis, Of Foot 03/06/2010 NISHI PALENCIA APRN T 110.4 Dermatophytosis, Of Foot 07/15/2010 466.0 Bronchitis, Acute 07/15/2010 780.79 Malaise And Fatigue 07/15/2010 CARO DO, ABBE K 466.0 Bronchitis, Acute 07/15/2010 CARO DO, ABBE K 780.79 Malaise And Fatigue 07/15/2010 466.0 Bronchitis, Acute 07/15/2010 780.79 Malaise And Fatigue 07/15/2010 CARO DO, ABBE K 466.0 Bronchitis, Acute 07/15/2010 CARO DO, ABBE K 780.79 Malaise And Fatigue 07/15/2010 CARO DO, ABBE K 466.0 Bronchitis, Acute 07/15/2010 CARO DO, ABBE K 780.79 Malaise And Fatigue 07/15/2010 CARO DO, ABBE K 466.0 Bronchitis, Acute 07/15/2010 CARO DO, ABBE K 780.79 Malaise And Fatigue 07/15/2010 466.0 Bronchitis, Acute 07/15/2010 780.79 Malaise And Fatigue 07/15/2010 466.0 Bronchitis, Acute 07/15/2010 780.79 Malaise And Fatigue 07/15/2010 CARO DO, ABBE K 466.0 Bronchitis, Acute 07/15/2010 CARO DO, ABBE K 780.79 Malaise And Fatigue 07/15/2010 NICHOLS CASHERO SPONGE DIVER, DEANA N 466.0 Bronchitis, Acute 07/15/2010 NICHOLS CASHERO SPONGE DIVER, DEANA N 780.79 Malaise And Fatigue 07/15/2010 SLIME JOHNSON NISHI T 466.0 Bronchitis, Acute 07/15/2010 SLIME BARRONNINSHI T 780.79 Malaise And Fatigue 07/15/2010 SLIME JOHNSON NISHI T 466.0 Bronchitis, Acute 07/15/2010 NISHI PALENCIA APRN T 780.79 Malaise And Fatigue 07/15/2010 NISHI PALENCIA APRN T 466.0 Bronchitis, Acute 07/15/2010 NISHI PALENCIA APRN T 780.79 Malaise And Fatigue 07/15/2010 SLIME JOHNSON NISHI T 466.0 Bronchitis, Acute 07/15/2010 SLIME BARRONN NISHI T 780.79 Malaise And Fatigue 07/15/2010 SILVA PATINO APRNIA R 466.0 Bronchitis, Acute 07/15/2010 CAREY BARRONN ZULMA R 780.79 Malaise And Fatigue 07/15/2010 SLIME JOHNSON NISHI T 466.0 Bronchitis, Acute 07/15/2010 SLIME JOHNSON NISHI T 780.79 Malaise And Fatigue 07/15/2010 SLIME JOHNSON NISHI T 466.0 Bronchitis, Acute 07/15/2010 SLIME BARRONN NISHI T 780.79 Malaise And Fatigue 07/15/2010 SLIME BARRONN NISHI T 466.0 Bronchitis, Acute 07/15/2010 SLIME BARRONN NISHI T 780.79 Malaise And Fatigue 07/15/2010 SLIME BARRONN NISHI T 466.0 Bronchitis, Acute 07/15/2010 NISHI PALENCIA APRN T 780.79 Malaise And Fatigue 07/15/2010 SLIME JOHNSON NISHI T 466.0 Bronchitis, Acute 07/15/2010 SLIME BARRONN NISHI T 780.79 Malaise And Fatigue 01/31/2011 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 01/31/2011 401.1 HYPERTENSION, BENIGN ESSENTIAL 01/31/2011 GORDO DO ABBE K 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 01/31/2011 CARO DO ABBE K 401.1 HYPERTENSION, BENIGN ESSENTIAL 01/31/2011 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 01/31/2011 401.1 ESSENTIAL HYPERTENSION BENIGN 01/31/2011 GORDO DO ABBE K 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 01/31/2011 CARO DO ABBE K 401.1 ESSENTIAL HYPERTENSION BENIGN 01/31/2011 CARO DO ABBE K 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 01/31/2011 CARO DO ABBE K 401.1 ESSENTIAL HYPERTENSION BENIGN 01/31/2011 CARO DO ABBE K 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 01/31/2011 STACY CARO DOA K 401.1 ESSENTIAL HYPERTENSION BENIGN 01/31/2011 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 01/31/2011 401.1 ESSENTIAL HYPERTENSION BENIGN 01/31/2011 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 01/31/2011 401.1 ESSENTIAL HYPERTENSION BENIGN 01/31/2011 STACY CARO DOA K 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 01/31/2011 STACY CARO DOA K 401.1 ESSENTIAL HYPERTENSION BENIGN 01/31/2011 DEANA NEGRETE APRN N 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 01/31/2011 DEANA NEGRETE APRN N 401.1 ESSENTIAL HYPERTENSION BENIGN 01/31/2011 NISHI PALENCIA APRN 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 01/31/2011 NISHI PALENCIA APRN 401.1 ESSENTIAL HYPERTENSION BENIGN 01/31/2011 NISHI PALENCIA APRN 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 01/31/2011 NISHI PALENCIA APRN 401.1 ESSENTIAL HYPERTENSION BENIGN 01/31/2011 NISHI PALENCIA APRN 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 01/31/2011 NISHI PALENCIA APRN 401.1 ESSENTIAL HYPERTENSION BENIGN 01/31/2011 NISHI PALENCIA APRN 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 01/31/2011 NISHI PALENCIA APRN T 401.1 ESSENTIAL HYPERTENSION BENIGN 01/31/2011 ZULMA PATINO APRN R 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 01/31/2011 ZULMA PATINO APRN R 401.1 ESSENTIAL HYPERTENSION BENIGN 01/31/2011 NISHI PALENCIA APRN 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 01/31/2011 NISHI PALENCIA APRN 401.1 ESSENTIAL HYPERTENSION BENIGN 01/31/2011 NISHI PALENCIA APRN 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 01/31/2011 NISHI PALENCIA APRN 401.1 ESSENTIAL HYPERTENSION BENIGN 01/31/2011 NISHI PALENCIA APRN 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 01/31/2011 NISHI PALENCIA APRN 401.1 ESSENTIAL HYPERTENSION BENIGN 01/31/2011 NISHI PALENCIA APRN 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 01/31/2011 NISHI PALENCIA APRN 401.1 ESSENTIAL HYPERTENSION BENIGN 01/31/2011 NISHI PALENCIA APRN 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 01/31/2011 NISHI PALENCIA APRN 401.1 ESSENTIAL HYPERTENSION BENIGN 10/08/2011 786.50 CHEST PAIN 10/08/2011 CARO DO, ABBE K 786.50 CHEST PAIN 10/08/2011 786.50 CHEST PAIN 10/08/2011 CARO DO, ABBE K 786.50 CHEST PAIN 10/08/2011 CARO DO, ABBE K 786.50 CHEST PAIN 10/08/2011 CARO DO, ABBE K 786.50 CHEST PAIN 10/08/2011 786.50 CHEST PAIN 10/08/2011 786.50 CHEST PAIN 10/08/2011 CARO DO, ABBE K 786.50 CHEST PAIN 10/08/2011 DEANA NEGRETE APRN 786.50 CHEST PAIN 10/08/2011 NISHI PALENCIA APRN 786.50 CHEST PAIN 10/08/2011 NISHI PALENCIA APRN 786.50 CHEST PAIN 10/08/2011 NISHI PALENCIA APRN T 786.50 CHEST PAIN 10/08/2011 NISHI PALENCIA APRN T 786.50 CHEST PAIN 10/08/2011 ZULMA PATINO APRN 786.50 CHEST PAIN 10/08/2011 NISHI PALENCIA APRN 786.50 CHEST PAIN 10/08/2011 NISHI PALENCIA APRN 786.50 CHEST PAIN 10/08/2011 NISHI PALENCIA APRN 786.50 CHEST PAIN 10/08/2011 NISHI PALENCIA APRN 786.50 CHEST PAIN 10/08/2011 NISHI PALENCIA APRN 786.50 CHEST PAIN 10/08/2011 Ot 250.00 DIAB FAISAL WO COMPL, TYPE II OR UNSPEC TY 10/08/2011 Ot 722.52 LUMB/LUMBOSAC DISC DEGEN 10/08/2011 Ot 724.8 OTHER BACK SYMPTOMS 10/08/2011 Ot 786.50 CHEST PAIN NOS 10/08/2011 Ot V58.67 LONG-TERM (CURRENT) USE OF INSULIN 10/08/2011 Ot V58.69 OTH MED,LT,CURRENT USE 10/21/2011 Ot 250.00 DIAB FAISAL WO COMPL, TYPE II OR UNSPEC TY 10/21/2011 Ot 272.4 HYPERLIPIDEMIA NEC/NOS 10/21/2011 Ot 278.00 OBESITY, NOS 10/21/2011 Ot 401.9 HYPERTENSION NOS 10/21/2011 Ot 414.01 CORONARY ATHEROSCLEROSIS OF [place] CORON 10/21/2011 Ot 724.5 BACKACHE NOS 10/21/2011 Ot 786.50 CHEST PAIN NOS 10/21/2011 Ot 794.30 ABN CARDIOVASC STUDY NOS 10/21/2011 Ot V17.49 FAMILY HISTORY OF OTHER CARDIOVASCULAR D 10/21/2011 Ot V58.66 LONG-TERM (CURRENT) USE OF ASPIRIN 10/21/2011 Ot V58.67 LONG-TERM (CURRENT) USE OF INSULIN 10/21/2011 Ot V58.69 OTH MED,LT,CURRENT USE 10/21/2011 Ot V85.41 BODY MASS INDEX 40.0-44.9, ADULT 03/18/2012 729.1 MYALGIA AND MYOSITIS UNSPECIFIED 03/18/2012 ABBE CARO DO 729.1 MYALGIA AND MYOSITIS UNSPECIFIED 03/18/2012 729.1 MYALGIA AND MYOSITIS UNSPECIFIED 03/18/2012 ABBE CARO DO 729.1 MYALGIA AND MYOSITIS UNSPECIFIED 03/18/2012 ABBE CARO DO 729.1 MYALGIA AND MYOSITIS UNSPECIFIED 03/18/2012 ABBE CARO DO K 729.1 MYALGIA AND MYOSITIS UNSPECIFIED 03/18/2012 729.1 MYALGIA AND MYOSITIS UNSPECIFIED 03/18/2012 729.1 MYALGIA AND MYOSITIS UNSPECIFIED 03/18/2012 ABBE CARO DO 729.1 MYALGIA AND MYOSITIS UNSPECIFIED 03/18/2012 DEANA NEGRETE APRN 729.1 MYALGIA AND MYOSITIS UNSPECIFIED 03/18/2012 NISHI PALENCIA APRN 729.1 MYALGIA AND MYOSITIS UNSPECIFIED 03/18/2012 NISHI PALENCIA APRN 729.1 MYALGIA AND MYOSITIS UNSPECIFIED 03/18/2012 NISHI PALENCIA APRN 729.1 MYALGIA AND MYOSITIS UNSPECIFIED 03/18/2012 NISHI PALENCIA APRN 729.1 MYALGIA AND MYOSITIS UNSPECIFIED 03/18/2012 ZULMA PATINO APRN 729.1 MYALGIA AND MYOSITIS UNSPECIFIED 03/18/2012 NISHI PALENCIA APRN 729.1 MYALGIA AND MYOSITIS UNSPECIFIED 03/18/2012 NISHI PALENCIA APRN 729.1 MYALGIA AND MYOSITIS UNSPECIFIED 03/18/2012 NISHI PALENCIA APRN 729.1 MYALGIA AND MYOSITIS UNSPECIFIED 03/18/2012 NISHI PALENCIA APRN 729.1 MYALGIA AND MYOSITIS UNSPECIFIED 03/18/2012 NISHI PALENCIA APRN 729.1 MYALGIA AND MYOSITIS UNSPECIFIED 10/13/2012 ABBE CARO DO 709.9 skin lesion [Sx] 10/13/2012 ABBE CARO DO V70.0 Preventive Medicine Estab Patient Checkup Adult 40-64 10/13/2012 ABBE CARO DO 709.9 skin lesion [Sx] 10/13/2012 ABBE CARO DO V70.0 Preventive Medicine Estab Patient Checkup Adult 40-64 10/13/2012 GORDO KIRAN, ABBE K 709.9 skin lesion [Sx] 10/13/2012 CARO , ABBE K V70.0 Preventive Medicine Estab Patient Checkup Adult 40-64 10/13/2012 709.9 skin lesion [Sx] 10/13/2012 V70.0 Preventive Medicine Estab Patient Checkup Adult 40-64 10/13/2012 709.9 skin lesion [Sx] 10/13/2012 V70.0 Preventive Medicine Estab Patient Checkup Adult 40-64 10/13/2012 CARO DO, ABBE K 709.9 skin lesion [Sx] 10/13/2012 CARO , ABBE K V70.0 Preventive Medicine Estab Patient Checkup Adult 40-64 10/13/2012 DEANA NEGRETE APRN 709.9 skin lesion [Sx] 10/13/2012 DENAA NEGRETE APRN V70.0 Preventive Medicine Estab Patient Checkup Adult 40-64 10/13/2012 NISHI PALENCIA APRN 709.9 skin lesion [Sx] 10/13/2012 NISHI PALENCIA APRN V70.0 Preventive Medicine Estab Patient Checkup Adult 40-64 10/13/2012 NISHI PALENCIA APRN 709.9 skin lesion [Sx] 10/13/2012 NISHI PALENCIA APRN V70.0 Preventive Medicine Estab Patient Checkup Adult 40-64 10/13/2012 NISHI PALENCIA APRN 709.9 skin lesion [Sx] 10/13/2012 NISHI PALENCIA APRN V70.0 Preventive Medicine Estab Patient Checkup Adult 40-64 10/13/2012 NISHI PALENCIA APRN 709.9 skin lesion [Sx] 10/13/2012 NISHI PALENCIA APRN V70.0 Preventive Medicine Estab Patient Checkup Adult 40-64 10/13/2012 ZULMA PATINO APRN 709.9 skin lesion [Sx] 10/13/2012 ZULMA PATINO APRN V70.0 Preventive Medicine Estab Patient Checkup Adult 40-64 10/13/2012 NISHI PALENCIA APRN 709.9 skin lesion [Sx] 10/13/2012 NISHI PALENCIA APRN V70.0 Preventive Medicine Estab Patient Checkup Adult 40-64 10/13/2012 NISHI PALENCIA APRN 709.9 skin lesion [Sx] 10/13/2012 NISHI PALENCIA APRN V70.0 Preventive Medicine Estab Patient Checkup Adult 40-64 10/13/2012 NISHI PALENCIA APRN 709.9 skin lesion [Sx] 10/13/2012 NISHI PALENCIA APRN V70.0 Preventive Medicine Estab Patient Checkup Adult 40-64 10/13/2012 NISHI PALENCIA APRN 709.9 skin lesion [Sx] 10/13/2012 NISHI PALENCIA APRN V70.0 Preventive Medicine Estab Patient Checkup Adult 40-64 10/13/2012 NISHI PALENCIA APRN 709.9 skin lesion [Sx] 10/13/2012 NISHI PALENCIA APRN V70.0 Preventive Medicine Estab Patient Checkup Adult 40-64 05/12/2013 CARO DO ABBE K 700 CORNS AND CALLOSITIES 05/12/2013 CARO DO, ABBE K 782.3 EDEMA 05/12/2013 DEANA NEGRETE APRN N 700 CORNS AND CALLOSITIES 05/12/2013 DEANA NEGRETE APRN N 782.3 EDEMA 05/12/2013 NISHI PALENCIA APRN 700 CORNS AND CALLOSITIES 05/12/2013 NISHI PALENCIA APRN 782.3 EDEMA 05/12/2013 NISHI PALENCIA APRN 700 CORNS AND CALLOSITIES 05/12/2013 NISHI PALENCIA APRN 782.3 EDEMA 05/12/2013 NISHI PALENCIA APRN 700 CORNS AND CALLOSITIES 05/12/2013 NISHI PALENCIA APRN 782.3 EDEMA 05/12/2013 NISHI PALENCIA APRN 700 CORNS AND CALLOSITIES 05/12/2013 NISHI PALENCIA APRN 782.3 EDEMA 05/12/2013 ZULMA PATINO APRN R 700 CORNS AND CALLOSITIES 05/12/2013 ZULMA PATINO APRN R 782.3 EDEMA 05/12/2013 NISHI PALENCIA APRN 700 CORNS AND CALLOSITIES 05/12/2013 NISHI PALENCIA APRN 782.3 EDEMA 05/12/2013 NISHI PALENCIA APRN 700 CORNS AND CALLOSITIES 05/12/2013 NISHI PALENCIA APRN 782.3 EDEMA 05/12/2013 NISHI PALENCIA APRN 700 CORNS AND CALLOSITIES 05/12/2013 NISHI PALENCIA APRN 782.3 EDEMA 05/12/2013 NISHI PALENCIA APRN 700 CORNS AND CALLOSITIES 05/12/2013 NISHI PALENCIA APRN 782.3 EDEMA 05/12/2013 SLIME JOHNSON, NISHI Baires 700 CORNS AND CALLOSITIES 05/12/2013 NISHI PALENCIA APRN 782.3 EDEMA 08/08/2013 MAGDALENA ANDINO APRN, DEANA N 465.9 ACUTE UPPER RESPIRATORY INFECTIONS OF UNSPECIFIED SITE 08/08/2013 NISHI PALENCIA APRN 465.9 ACUTE UPPER RESPIRATORY INFECTIONS OF UNSPECIFIED SITE 08/08/2013 NISHI PALENCIA APRN 465.9 ACUTE UPPER RESPIRATORY INFECTIONS OF UNSPECIFIED SITE 08/08/2013 NISHI PALENCIA APRN 465.9 ACUTE UPPER RESPIRATORY INFECTIONS OF UNSPECIFIED SITE 08/08/2013 NISHI PALENCIA APRN 465.9 ACUTE UPPER RESPIRATORY INFECTIONS OF UNSPECIFIED SITE 08/08/2013 ZULMA PATINO APRN 465.9 ACUTE UPPER RESPIRATORY INFECTIONS OF UNSPECIFIED SITE 08/08/2013 NISHI PALENCIA APRN 465.9 ACUTE UPPER RESPIRATORY INFECTIONS OF UNSPECIFIED SITE 08/08/2013 NISHI PALENCIA APRN 465.9 ACUTE UPPER RESPIRATORY INFECTIONS OF UNSPECIFIED SITE 08/08/2013 NISHI PALENCIA APRN 465.9 ACUTE UPPER RESPIRATORY INFECTIONS OF UNSPECIFIED SITE 08/08/2013 NISHI PALENCIA APRN 465.9 ACUTE UPPER RESPIRATORY INFECTIONS OF UNSPECIFIED SITE 08/08/2013 NISHI PALENCIA APRN 465.9 ACUTE UPPER RESPIRATORY INFECTIONS OF UNSPECIFIED SITE 04/09/2014 GINI WHITE, JEFERSON Baires Ot 401.9 HYPERTENSION NOS 04/09/2014 GINI WHITE, JEFERSON Baires Ot 593.9 RENAL URETERAL DIS NOS 04/09/2014 GINI WHITE, JEFERSON Baires Ot 724.2 LUMBAGO 04/16/2014 ZULMA PATINO APRN 789.09 ABDOMINAL PAIN OTHER SPECIFIED SITE 04/16/2014 ZULMA PATINO APRN V76.51 SPECIAL SCREENING FOR MALIGNANT NEOPLASMS COLON 04/16/2014 NISHI PALENCIA APRN 789.09 ABDOMINAL PAIN OTHER SPECIFIED SITE 04/16/2014 NISHI PALENCIA APRN V76.51 SPECIAL SCREENING FOR MALIGNANT NEOPLASMS COLON 04/16/2014 NISHI PALENCIA APRN 789.09 ABDOMINAL PAIN OTHER SPECIFIED SITE 04/16/2014 NISHI PALENCIA APRN V76.51 SPECIAL SCREENING FOR MALIGNANT NEOPLASMS COLON 04/16/2014 NISHI PALENCIA APRN 789.09 ABDOMINAL PAIN OTHER SPECIFIED SITE 04/16/2014 NISHI PALENCIA APRN V76.51 SPECIAL SCREENING FOR MALIGNANT NEOPLASMS COLON 04/16/2014 NISHI PALENCIA APRN 789.09 ABDOMINAL PAIN OTHER SPECIFIED SITE 04/16/2014 NISHI PALENCIA APRN V76.51 SPECIAL SCREENING FOR MALIGNANT NEOPLASMS COLON 04/16/2014 NISHI PALENCIA APRN 789.09 ABDOMINAL PAIN OTHER SPECIFIED SITE 04/16/2014 NISHI PALENCIA APRN V76.51 SPECIAL SCREENING FOR MALIGNANT NEOPLASMS COLON 03/17/2016 Ot 272.4 HYPERLIPIDEMIA NEC/NOS 03/17/2016 Ot 401.9 HYPERTENSION NOS 03/17/2016 Ot 786.50 CHEST PAIN NOS 03/17/2016 Ot 272.4 HYPERLIPIDEMIA NEC/NOS 03/17/2016 Ot 401.9 HYPERTENSION NOS 03/17/2016 Ot 786.50 CHEST PAIN NOS 03/17/2016 Ot 272.4 HYPERLIPIDEMIA NEC/NOS 03/17/2016 Ot 401.9 HYPERTENSION NOS 03/17/2016 Ot 414.00 CORON ATHEROSCLER NOS TYPE VESSEL, NATIV 03/18/2016 NISHI PALENCIA Ot G89.29 OTHER CHRONIC PAIN 03/19/2016 NISHI PALENCIA Ot G89.29 OTHER CHRONIC PAIN 04/09/2016 NISHI PALENCIA Ot G89.29 OTHER CHRONIC PAIN 01/05/2017 Ot 272.4 HYPERLIPIDEMIA NEC/NOS 01/05/2017 Ot 401.9 HYPERTENSION NOS 01/05/2017 Ot 786.50 CHEST PAIN NOS 01/05/2017 Ot 272.4 HYPERLIPIDEMIA NEC/NOS 01/05/2017 Ot 401.9 HYPERTENSION NOS 01/05/2017 Ot 786.50 CHEST PAIN NOS 01/05/2017 Ot 272.4 HYPERLIPIDEMIA NEC/NOS 01/05/2017 Ot 401.9 HYPERTENSION NOS 01/05/2017 Ot 414.00 CORON ATHEROSCLER NOS TYPE VESSEL, NATIV 01/05/2017 NISHI PALENCIA Ot G89.29 OTHER CHRONIC PAIN 01/05/2017 SUMIT MANRIQUE DO Ot E11.9 TYPE 2 DIABETES MELLITUS WITHOUT COMPLIC 01/05/2017 SUMIT MANRIQUE DO Ot I10 ESSENTIAL (PRIMARY) HYPERTENSION 01/05/2017 SUMIT MANRIQUE DO Ot M25.571 PAIN IN RIGHT ANKLE AND JOINTS OF RIGHT 01/05/2017 SMUIT MANRIQUE DO Ot M54.16 RADICULOPATHY, LUMBAR REGION 01/05/2017 SUMIT MANRIQUE DO Ot Z79.4 WEIGHT TESTER (CURRENT) USE OF INSULIN 01/05/2017 SUMIT MANRIQUE DO Ot Z79.82 WEIGHT TESTER (CURRENT) USE OF ASPIRIN 01/05/2017 SUMIT MANRIQUE DO Ot Z79.84 WEIGHT TESTER (CURRENT) USE OF ORAL HYPOGLYC 01/05/2017 SUMIT MANRIQUE DO Ot Z98.890 OTHER SPECIFIED POSTPROCEDURAL STATES Procedures Code [place] [address] ROUTINE VENIPUNCTURE 07/07/2012 34183 A1C (IN-HOUSE) 72359 URINE DRUG SCREEN (IN-HOUSE) 07/07/2012 25940 MICRO ALBUMIN-IN HOUSE 07/07/2012 52714 CMP 07/07/2012 40184 LIPID PANEL 07/07 4437980 GFR CALC (RESULT ONLY) 07/07/2012 54749 CPK 07/08/2012 47181 ROUTINE VENIPUNCTURE 10/13/2012 49354 A1C (IN-HOUSE) 86126 MICRO ALBUMIN-IN HOUSE 10/13/2012 22038 CMP 10/13/2012 5140895 GFR CALC (RESULT ONLY) 10/13/2012 99177 HEMOCCULT 2012 26801 HEMOCCULT 2012 92978 EXCISION BENIGN LESION 2.1-3 cm (specify location in [facility] description) 10/31/2012 87503 ROUTINE VENIPUNCTURE 01/16/2013 55183 A1C (IN-HOUSE) 22738 CMP 01/16/2013 85975 LIPID PANEL 01/16 86493 MICRO ALBUMIN-IN HOUSE 05/12/2013 61088 A1C (IN-HOUSE) 60755 A1C (IN-HOUSE) 37805 ROUTINE VENIPUNCTURE 12/29/2013 00673 CMP 12/29/2013 14074 LIPID PANEL 12/29 47337 CBC 12/29/2013 10294 A1C (IN-HOUSE) 21012 HEMOCCULT 2013 64185 A1C (IN-HOUSE) 51825 MICRO ALBUMIN-IN HOUSE 06/25/2014 Results Test Result Range Complete blood count (CBC) with automated white blood cell (WBC) differential - 01/05/17 18:13 Blood leukocytes automated count (number/volume) 8.3 10*3/ uL 4.3-11.0 Blood erythrocytes automated count (number/volume) 4.46 10*6 /uL 4.35-5.85 Venous blood hemoglobin measurement (mass/volume) 12.5 g/dL 13.3-17.7 Blood hematocrit (volume fraction) 38 % 40-54 Automated erythrocyte mean corpuscular volume 85 [foz_us] 80-99 Automated erythrocyte mean corpuscular hemoglobin (mass per erythrocyte) 28 pg 25-34 Automated erythrocyte mean corpuscular hemoglobin concentration measurement ( mass/volume) 33 g/dL 32-36 Automated erythrocyte distribution width ratio 13.7 % 10.0-14.5 Automated blood platelet count (count/volume) 249 10*3/uL 130-400 Automated blood platelet mean volume measurement 10.6 [foz_ us] 7.4-10.4 Automated blood neutrophils/100 leukocytes 66 % 42-75 Automated blood lymphocytes/100 leukocytes 27 % 12-44 Blood monocytes/100 leukocytes 5 % 0-12 Automated blood eosinophils/100 leukocytes 2 % 0-10 Automated blood basophils/100 leukocytes 1 % 0-10 Blood neutrophils automated count (number/volume) 5.5 10*3 1.8-7.8 Blood lymphocytes automated count (number/volume) 2.2 10*3 1.0-4.0 Blood monocytes automated count (number/volume) 0.4 10*3 0.0-1.0 Automated eosinophil count 0.2 10*3/uL 0.0-0.3 Automated blood basophil count (count/volume) 0.1 10*3/uL 0.0-0.1 Comprehensive metabolic panel - 01/05/17 18:13 Serum or plasma sodium measurement (moles/volume) 142 mmol/ L 135-145 Serum or plasma potassium measurement (moles/volume) 4.7 mmol/L 3.6-5.0 Serum or plasma chloride measurement (moles/volume) 107 mmol /L 98-107 Carbon dioxide 22 mmol/L 21-32 Serum or plasma anion gap determination (moles/volume) 13 mmol/L 5-14 Serum or plasma urea nitrogen measurement (mass/volume) 22 mg/dL 7-18 Serum or plasma creatinine measurement (mass/volume) 1.59 mg /dL 0.60-1.30 Serum or plasma urea nitrogen/creatinine mass ratio 14 NRG Serum or plasma creatinine measurement with calculation of estimated glomerular filtration rate 44 NRG Serum or plasma glucose measurement (mass/volume) 145 mg/dL 70-105 Serum or plasma calcium measurement (mass/volume) 9.4 mg/dL 8.5-10.1 Serum or plasma total bilirubin measurement (mass/volume) 0.4 mg/dL 0.1-1.0 Serum or plasma alkaline phosphatase measurement (enzymatic activity/volume) 71 U/L 40-136 Serum or plasma aspartate aminotransferase measurement (enzymatic activity/ volume) 23 U/L 5-34 Serum or plasma alanine aminotransferase measurement (enzymatic activity/volume ) 17 U/L 0-55 Serum or plasma protein measurement (mass/volume) 6.8 g/dL 6.4-8.2 Serum or plasma albumin measurement (mass/volume) 3.8 g/dL 3.2-4.5 Magnesium - 01/05/17 18:13 Magnesium 2.0 mg/dL 1.8-2.4 PT panel in platelet poor plasma by coagulation assay - 01/05/17 18:13 Prothrombin time (PT) in platelet poor plasma by coagulation assay 14.6 s 12.2-14.7 INR in platelet poor plasma or blood by coagulation assay 1.2 0.8-1.4 Activated partial thromboplastin time (aPTT) in platelet poor plasma bycoagulation assay - 01/05/17 18:13 Activated partial thromboplastin time (aPTT) in platelet poor plasma bycoagulation assay 31 s 24-35 Encounters ACCT No. Visit Date/Time Discharge Status Pt. Type Provider Facility Loc./Unit Complaint [id number] 01/05/2017 17:42:00 2016 19:27:00 DIS Emergency SUMIT MANRIQUE DO Via [facility] ER POST OP/R FOOT PAIN AND TOE DISCOLORATION [id number] 03/17/2016 15:10:00 2015 23:59:59 CLS Outpatient NISHI PALENCIA Via [facility] RAD OTHER CHRONIC PAIN [id number] 04/09/2014 10:08:00 2013 11:57:00 DIS Emergency GINI WHITE, JEFERSON Baires Via [facility] ER BACK PAIN [id number] 03/04/2012 12:02:00 Document Registration [id number] 10/20/2011 15:10:00 Document Registration [id number] 10/20/2011 11:10:00 Document Registration [id number] 10/15/2011 11:11:00 Document Registration [id number] 10/08/2011 10:32:00 Document Registration [id number] 08/15/2014 11:23:00 08/15/2014 23: 59:59 CLS Outpatient NISHI PALENCIA APRN [id number] 07/25/2014 11:25:00 07/25/2014 23: 59:59 CLS Outpatient NISHI PALENCIA APRN [id number] 06/25/2014 11:05:00 06/25/2014 23: 59:59 CLS Outpatient NISHI PALENCIA APRN [id number] 05/23/2014 10:05:00 05/23/2014 23: 59:59 CLS Outpatient NISHI PALENCIA APRN [id number] 04/23/2014 09:17:00 04/23/2014 23: 59:59 CLS Outpatient NISHI PALENCIA APRN [id number] 04/16/2014 13:23:00 04/16/2014 23: 59:59 CLS Outpatient CAREY BARRONPollo ZULMA Yobani [id number] 02/21/2014 11:53:00 02/21/2014 23: 59:59 CLS Outpatient NISHI PALENCIA APRN [id number] 12/29/2013 09:51:00 12/29/2013 23: 59:59 CLS Outpatient NISHI PALENCIA APRN [id number] 11/24/2013 11:09:00 11/24/2013 23: 59:59 CLS Outpatient NISHI PALENCIA APRN [id number] 10/20/2013 10:36:00 10/20/2013 23: 59:59 CLS Outpatient NISHI PALENCIA APRN [id number] 08/08/2013 09:11:00 08/08/2013 23: 59:59 CLS Outpatient DEANA NEGRETE APRN [id number] 05/12/2013 15:48:00 05/12/2013 23: 59:59 CLS Outpatient ABBE CARO DO Eric [id number] 10/31/2012 10:53:00 10/31/2012 23: 59:59 CLS Outpatient ABBE CARO DO Eric [id number] 10/20/2012 10:06:00 10/20/2012 23: 59:59 CLS Outpatient GORDO KIRAN ABBE Reyes [id number] 10/13/2012 09:50:00 10/13/2012 23: 59:59 CLS Outpatient CARO STACY KIRANChris Reyes [id number] 09/15/2012 11:48:00 09/15/2012 23: 59:59 CLS Outpatient [id number] 07/07/2012 07:45:00 07/07/2012 23: 59:59 CLS Outpatient CARO ABBE [id number] 07/07/2012 07:45:00 07/07/2012 23:59 :59 CLS Outpatient [id number] 01/16/2013 13:04:00 Document Registration [id number] 10/13/2012 09:50:00 Document Registration
[2017-06-06] MEDS ORDERED: OXYCOD/APAP PO (11:57)
[2017-06-06] MEDS ORDERED: CYCL5TAB PO (11:57)
[2017-06-06] MEDS ORDERED: GABA800T2 PO (11:57)
[2017-06-06 12:07] LABS: BILIRUBIN,URINE NEGATIVE (NEGATIVE); KETONES,URINE NEGATIVE (NEGATIVE); LEUKOCYTE ESTERASE ,URINE NEGATIVE (NEGATIVE); NITRITE,URINE NEGATIVE (NEGATIVE); PH,URINE 6 (5-9); PROTEIN,URINE 1+ (NEGATIVE); UROBILINOGEN,URINE NORMAL (NORMAL)
[2017-06-06 12:16] LABS: WBC,URINE RARE /HPF
--- NOTE | 2017-06-06 12:18 | ED Back Pain ---
General Chief Complaint: Back Problems Stated Complaint: BACK/L SIDE PAIN Nursing Triage Note: pt reports left sided back pain that radiates to abd x 4 days, that is worsening. pt seen by [facility] on Wednesday, UA neg, and muscle relaxers given for possible pulled muscle. Pt reports slight improvement on musle relaxer. pt amb into exam room without difficulty, at bedside. Nursing Sepsis Screen: No Definite Risk Source of Information: Patient Exam Limitations: No Limitations History of Present Illness Time Seen by Provider: 12:18 Initial Comments 67-year-old male patient presents to the emergency department with complaints of the left low back pain radiating into the left flank/mid abdomen 4 days. Reports pain is constant. Denies nausea, vomiting, diarrhea, fever. Patient was seen by [facility] on Wednesday and given muscle relaxants. States they did check a UA which was negative per patient. Patient states pain is a little better today. Location: Paraspinous Muscles (left low back) Timing/Duration: 3-4 Days Pain/Injury Location: Back Radiation: Other (left flank/mid left abdomen) Method of Injury: Unknown (denies known injury) Modifying Factors: Worse With Movement, Improves With Other (improved with flexeril) Associated Symptoms: No muscle spasms, No fever, No weakness, No numbness in legs/feet, No tingling in legs/feet, No sensory/motor loss, lower back pain, No loss of bladder control, No loss of bowel control Allergies and Home Medications Allergies Coded Allergies: No Known Drug Allergies (Unverified , 10/08/11) Home Medications Aspirin 325 Mg Tab, 325 MG PO DAILY, (Reported) Cyclobenzaprine HCl 5 Mg Tablet, 5 MG PO TID PRN for MUSCLE SPASMS, (Reported) Etodolac 400 Mg Tablet, 1 EACH PO TID, (Reported) Gabapentin 800 Mg Tablet, 800 MG PO TID, (Reported) Insulin Aspart 10 Unit/0.1 Ml Vial, 33 UNIT SQ TID, #1 (Reported) Insulin Detemir 100 Unit/1 Ml Insuln.pen, 90 UNIT SQ DAILY, (Reported) Lisinopril 40 Mg Tablet, 40 MG PO DAILY, (Reported) Metformin Hcl 500 Mg Tab, 1,000 MG PO TID, (Reported) Prednisone 20 Mg Tab, 20 MG PO DAILY, #5 Ref 0 Prescribed by: DAIJA ROSA on 06/06/17 1329 [Oxycod/Apap] TAB, 1 TAB PO Q8H PRN for PAIN-SEVERE TO BREAKTHROUGH, (Reported) Constitutional: No chills, No dizziness, No fever, No malaise EENTM: no symptoms reported Respiratory: No cough, No phlegm, No short of breath Cardiovascular: No chest pain, No palpitations Gastrointestinal: see HPI, abdominal pain (left mid abdomen), No constipation, No diarrhea, No loss of appetite, No nausea, No vomiting Genitourinary: No decreased output, No dysuria, No frequency, No hematuria, other (left flank pain) Musculoskeletal: back pain, No joint pain, No neck pain Skin: No change in color, No lesions, No rash Psychiatric/Neurological: Denies Numbness, Denies Paresthesia, Denies Tingling , Denies Weakness All Other Systems Reviewed Negative Unless Noted: Yes (Negative excepted noted.) Past Bzzjfse-Spmpmd-Wxdvcg Hx Patient Social History Alcohol Use: Denies Use Recreational Drug Use: No Smoking Status: Former Smoker Former Smoker, Quit: Aug 09, 1979 2nd Hand Smoke Exposure: No Recent Foreign Travel: No Contact w/Someone Who Travel: No Recent Infectious Disease Expo: No Recent Hopitalizations: No Seasonal Allergies Seasonal Allergies: No Surgeries History of Surgeries: Yes (left knee scope, L5 surgery 02/22) Surgeries: Cardiac, Neurological, Orthopedic Respiratory History of Respiratory Disorde: No Respiratory Disorders: Sleep Apnea Cardiovascular History of Cardiac Disorders: Yes (HEART CATH X2) Cardiac Disorders: Hypertension Neurological History of Neurological Disord: Yes Neurological Disorders: Neuropathy Reproductive System Hx Reproductive Disorders: No Genitourinary History of Genitourinary Disor: No Gastrointestinal History of Gastrointestinal Di: No Musculoskeletal History of Musculoskeletal Dis: Yes Musculoskeletal Disorders: Degenerate Disk Disease, Chronic Back Pain Endocrine History of Endocrine Disorders: Yes Endocrine Disorders: Diabetes, Insulin dep Are Your Blood Sugars Over 250: No HEENT History of HEENT Disorders: No Cancer History of Cancer: No Psychosocial History of Psychiatric Problem: No Integumentary History of Skin or Integumenta: No Blood Transfusions History of Blood Disorders: No Reviewed Nursing Assessment Reviewed/Agree w Nursing PMH: Yes Family Medical History Significant Family History: No Pertinent Family Hx Physical Exam Vital Signs Vital Sign - Last 12Hours 06/06/17 11:32 Pulse 70 Resp 20 B/P (MAP) 191/89 Pulse Ox 93 O2 Delivery Room Air Capillary Refill : Less Than 3 Seconds General Appearance: No Apparent Distress, WD/WN, Other (rolls over in the bed without difficulty.) HEENT: PERRL/EOMI, Pharynx Normal Neck: Full Range of Motion, Normal Inspection, Non Tender, Supple Cardiovascular: Regular Rate, Rhythm, No Edema, No Murmur, Normal Peripheral Pulses Respiratory: Lungs Clear, Normal Breath Sounds, No Accessory Muscle Use, No Respiratory Distress Peripheral Pulses: 2+ Dorsalis Pedis (R), 2+ Left Dors-Pedis (L), 2+ Radial Pulses (R), 2+ Radial Pulses (L) Gastrointestinal: Normal Bowel Sounds, No Organomegaly, No Pulsatile Mass, Non Tender (unable to reproduce tenderness), Soft, No Distended Back: Normal Inspection, No Vertebral Tenderness, CVA Tenderness (L) (mild left CVA tenderness), No CVA Tenderness (R), No Decreased Range of Motion, Muscle Spasm (mild muscles spasm noted of the left lower paraspinous muscles with mild tenderness to palpation) Extremity: Normal Capillary Refill, Normal Inspection, Normal Range of Motion, Non Tender, No Pedal Edema Neurologic/Psychiatric: Alert, Oriented x3, Normal Mood/Affect Skin: Normal Color, Warm/Dry Progress/Results/Core Measures Results/Orders Lab Results Laboratory Tests Test 06/06/17 11:59 Range/Units Urine Color YELLOW Urine Clarity CLEAR Urine pH 6 5-9 Urine Specific [place] 1.020 1.016-1.022 Urine Protein 1+ H NEGATIVE Urine Glucose (UA) 2+ H NEGATIVE Urine Ketones NEGATIVE NEGATIVE Urine Nitrite NEGATIVE NEGATIVE Urine Bilirubin NEGATIVE NEGATIVE Urine Urobilinogen NORMAL NORMAL MG/DL Urine Leukocyte Esterase NEGATIVE NEGATIVE Urine RBC (Auto) NEGATIVE NEGATIVE Urine RBC NONE /HPF Urine WBC RARE /HPF Urine Squamous Epithelial Cells 5-10 /HPF Urine Crystals NONE /LPF Urine Bacteria NEGATIVE /HPF Urine Casts NONE /LPF Urine Mucus NEGATIVE /LPF Urine Culture Indicated NO My Orders Orders - DAIJA ROSA Ua Culture If Indicated (06/06/17 11:46) Ct Abd/Pelvis Wo(Kidney Stone) (06/06/17 12:24) Vital Signs/I&O Vital Sign - Last 12Hours 06/06/17 11:32 Pulse 70 Resp 20 B/P (MAP) 191/89 Pulse Ox 93 O2 Delivery Room Air Blood Pressure Mean: 123 Diagnostic Imaging Diagonstic Imaging: CT Plain Films/CT/US/NM/MRI: abdomen, pelvis Comments There is a 2 cm well-circumscribed density in the anterior cardiophrenic angle on the right. This has units near zero and may be a small pericardial cyst. Liver, gallbladder and bile ducts are normal. The spleen, pancreas and adrenals show no acute abnormality. There is a 17 mm well-circumscribed low-density mass in the left adrenal which is likely a nonfunctioning adenoma and was present on CT from 2011. The kidneys, ureters and bladder are normal. Prostate is normal. No acute bowel abnormality is seen. There are scattered diverticula present. There is no ascites. There is no acute bony abnormality. IMPRESSION: No acute abnormality is seen. There is a small lesion in the cardiophrenic angle which most likely represents a pericardial cyst. There is a left adrenal gland lesion which most likely represents a nonfunctioning adenoma. Dictated by: Dictated on workstation # [id number] Reviewed: Reviewed by Me (radiology report reviewed by me) Departure Communication (Admissions) Progress Notes all diagnostic findings discussed with the patient. Patient continues to refuse as needed for pain medication. Patient states that she is oxycodone, Neurontin, and Flexeril at home. Plan for discharge to home. Impression Impression: Primary Impression: Strain of muscle, fascia and tendon of lower back, initial encounter Additional Impression: Left flank pain Disposition: HOME, SELF-CARE Condition: Improved Departure-Patient Inst. Decision time for Depature: 13:27 Referrals: [facility] (PCP/Family) Primary Care Physician Patient Instructions: Lumbar Muscle Strain (DC) Add. Discharge Instructions: All discharge instructions reviewed with patient and/or family. Voiced understanding. Medications as directed. Continue usual home medications. No lifting, pushing, pulling, twisting, or bending x 5-7 days. Then increase activity as tolerated. Follow-up with [facility] as an outpatient for recheck. Call tomorrow morning for appointment time. Monitor blood sugars closely. If blood sugar increases, stop the prednisone immediately. Return to the emergency department for worsened pain, numbness, weakness, fever, bowel incontinence, bladder incontinence, abdominal pain, swelling, difficulty with urination, blood in the urine, or any other concerns. Scripts Prednisone (Prednisone) 20 Mg Tab 20 MG PO DAILY, #5 TAB 0 Refills Prov: DAIJA ROSA 06/06/17 DAIJA ROSA Jun 06, 2017 12:18
--- NOTE | 2017-06-06 12:55 | Diagnostic Imaging Report ---
PROCEDURE: CT urinary tract, rule out kidney stone. TECHNIQUE: Multiple contiguous axial images were obtained through the abdomen and pelvis without the use of intravenous contrast. INDICATION: Left anterior abdominal pain radiating to the posterior flank There is a 2 cm well-circumscribed density in the anterior cardiophrenic angle on the right. This has units near zero and may be a small pericardial cyst. Liver, gallbladder and bile ducts are normal. The spleen, pancreas and adrenals show no acute abnormality. There is a 17 mm well-circumscribed low-density mass in the left adrenal which is likely a nonfunctioning adenoma and was present on CT from 2011. The kidneys, ureters and bladder are normal. Prostate is normal. No acute bowel abnormality is seen. There are scattered diverticula present. There is no ascites. There is no acute bony abnormality. IMPRESSION: No acute abnormality is seen. There is a small lesion in the cardiophrenic angle which most likely represents a pericardial cyst. There is a left adrenal gland lesion which most likely represents a nonfunctioning adenoma. Dictated by: Dictated on workstation # [id number]
[2017-06-06] MEDS ORDERED: PRD20T PO (13:29)
[2017-06-06 13:44] VITALS: BP 188/82
== END 2017-06-06 13:44 | disposition home or self-care (01) ==
LOC: EDUNIT# 11:25 → ER 11:26
DX: S39.012A Strain of muscle, fascia and tendon of lower back, initial encounter (principal); R10.9 Unspecified abdominal pain; E11.40 Type 2 diabetes mellitus with diabetic neuropathy, unspecified; M47.9 Spondylosis, unspecified; I10 Essential (primary) hypertension; G47.33 Obstructive sleep apnea (adult) (pediatric); Z87.891 Personal history of nicotine dependence; Z79.82 Long term (current) use of aspirin; Z79.4 Long term (current) use of insulin
CPT/HCPCS: 74176; 81000; 99282

== ENCOUNTER → 2017-09-24 | Outpatient (CLI) | payer MEDICARE ==
[~2017-09-24] MED LIST changes: +CYCL5TAB PO; +GABA800T2 PO; +HYDR-34 PO; -HYDR-3816 PO; +IOHEXOL 350 MG/ML 100 ML (OMNIPAQUE 350) VIAL IV ONE; +NS 100 ML (IVPB) BAG IV ONE; +OXYCOD/APAP PO; +PRD20T PO
[2017-09-24 13:45] LABS: CREATININE SERUM 1.33 MG/DL (0.60-1.30)
--- NOTE | 2017-09-24 15:01 | Diagnostic Imaging Report ---
PROCEDURE: CT chest and abdomen with contrast. TECHNIQUE: Multiple contiguous axial images were obtained through the chest and abdomen after the administration of intravenous contrast. INDICATION: Left flank pain, lower rib pain, pain with inspiration. COMPARISON: Study compared with an abdominopelvic CT of 06/06/2017. No previous chest CT. FINDINGS: There is mild partial atelectasis of the dependent right lower lobe. There are minute amounts of pleural fluid in the bilateral posterior sulci of well less than 1 cm. There were no findings felt suggestive of CT evidence for riana pneumonia. The thoracic aorta is calcified but patent and nonaneurysmal. There is no pericardial effusion. There is no hilar or mediastinal lymphadenopathy. No acute soft tissue or osseous chest wall pathology. Abdomen: Liver, gallbladder, adrenals, spleen, and pancreas are unremarkable. Fat-containing low-density left adrenal nodule shows enhancement and washout characteristics, consistent with an incidental adenoma and it is unchanged from priors at 1.8 cm. There is no hydronephrosis. There is a tiny 1 cm left renal cortical cyst showing no complexity. No perinephric edema. The opacified proximal ureters are nondilated. The abdominal small and large bowel is unobstructed. There is visualization of the appendix, normal. No free air. IMPRESSION: 1. Chest: Minute pleural effusions and minimal basilar atelectasis. No focal pneumonia or acute chest wall lesion. 2. Abdomen: No bowel, biliary, or urinary tract obstruction. Stable benign left adrenal nodule. Benign renal cyst. Normal appendix and no free air or fluid collection. Dictated by: Dictated on workstation # [id number]
== END ==
LOC: RAD 13:09
PROVIDERS: ATTEND Nurse Practitioner Community Health
DX: E27.8 Other specified disorders of adrenal gland (principal); R07.81 Pleurodynia
CPT/HCPCS: 36415; 71260; 74160; 82565; 84520

== ENCOUNTER 2017-11-07 18:37 | Emergency (ER) | payer MEDICARE ==
[~2017-11-07] VITALS: Ht 170.2 cm; Wt 123.2 kg
[~2017-11-07 18:37] MED LIST changes: -IOHEXOL 350 MG/ML 100 ML (OMNIPAQUE 350) VIAL IV ONE; -NS 100 ML (IVPB) BAG IV ONE
--- OUTSIDE RECORDS SUMMARY | 2017-11-07 18:42 | XMS REPORT ---
Author Author NISHI PALENCIA Organization [facility] Address [address] [place] [address] Care Team Providers Care [place] Name Role Phone NISHI PALENCIA Unavailable PROBLEMS Type Condition ICD9-CM Code [id number] Code Onset Dates Condition Status SNOMED Code Problem Type 2 diabetes mellitus with hyperglycemia E11.65 Active 677506768 Problem Lumbago with sciatica, left side M54.42 Active 974485708 Problem Controlled type 2 diabetes mellitus without complication, without long -term current use of insulin E11.9 Active 032155653 Problem Type 2 diabetes mellitus with diabetic neuropathy, unspecified E11.40 Active 69330199 Problem Diabetes type 2, controlled E11.9 Active 66631091 Problem Diabetic mononeuropathy associated with type 2 diabetes mellitus E11.41 Active 733461959 Problem Neuropathy G62.9 Active 630882340 Problem Type 2 diabetes mellitus without complications E11.9 Active 744160320 Problem USP 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 Active 536925517 Problem Slow transit constipation K59.01 Active 93560250 Problem Other chronic pain G89.29 Active [id number] ALLERGIES No Information SOCIAL HISTORY Never Assessed PLAN OF CARE VITAL SIGNS MEDICATIONS Medication Instructions Dosage Frequency Start Date End Date Duration Status Neurontin 300 MG Orally Three times a day 2 capsules 8h Jun, 90 days Active RESULTS No Results PROCEDURES No Known procedures IMMUNIZATIONS No Known Immunizations MEDICAL (GENERAL) HISTORY Type Description Date Medical History type II diabetes Medical History hyperlipidemia Medical History hypertension Medical History chronic pain back/knees Surgical History right knee arthroscopy 1994 Surgical History heart cath, 2010--clear Surgical History left knee arthroscopy 2010 Surgical History back surgery with rods 12/2016 Hospitalization History surgeries
--- OUTSIDE RECORDS SUMMARY | 2017-11-07 18:42 | XMS REPORT ---
Author Author NISHI PALENCIA [facility] Address [address] [place] [address] Care Team Providers Care Employee Welfare Manager Name Role Phone NISHI PALENCIA Unavailable PROBLEMS Type Condition ICD9-CM Code [id number] Code Onset Dates Condition Status SNOMED Code Problem Type 2 diabetes mellitus with hyperglycemia E11.65 Active 561651300 Problem Lumbago with sciatica, left side M54.42 Active 419494710 Problem Controlled type 2 diabetes mellitus without complication, without long -term current use of insulin E11.9 Active 766037658 Problem Type 2 diabetes mellitus with diabetic neuropathy, unspecified E11.40 Active 65917275 Problem Diabetes type 2, controlled E11.9 Active 64480027 Problem Diabetic mononeuropathy associated with type 2 diabetes mellitus E11.41 Active 991260053 Problem Neuropathy G62.9 Active 227153405 Problem Type 2 diabetes mellitus without complications E11.9 Active 045105636 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 221517794 Problem Slow transit constipation K59.01 Active 52251016 Problem Other chronic pain G89.29 Active 45889603 ALLERGIES No Known Allergies SOCIAL HISTORY Never Assessed PLAN OF CARE Activity Details Follow Up 4 Weeks Reason:hip pain VITAL SIGNS Height 67 in 2016-12-14 Weight 264.0 lbs 2016-12-14 Temperature 98.7 degrees Fahrenheit 2016-12-14 Heart Rate 72 bpm 2016-12-14 Respiratory Rate 18 2016-12-14 BMI 41.34 kg/m2 2016-12-14 Blood pressure systolic 144 mmHg 2016-12-14 Blood pressure diastolic 64 mmHg 2016-12-14 MEDICATIONS Medication Instructions Dosage Frequency Start Date End Date Duration Status Humalog KwikPen 100 UNIT/ML Subcutaneous 3 times a day 30 units 8h December, Active Lisinopril 40 mg Orally Once a day 1 tablet 24h May, Active Aspirin 325 MG Orally Once a day 1 tablet 24h Active BD Ultra-Fine Pen [place] 29G X 12.7MM Inject 6h May, Active Metformin HCl 1000 MG Orally Twice a day 1 tablet with meals 12h May, Active Lipitor 20 mg Orally Once a day 1 tablet 24h May, Active [place] 10-325 MG Orally every 6 hrs 1 tablet as needed 6h December, Jan, 28 days Active Levemir FlexTouch 100 UNIT/ML Subcutaneous Once a day 90 units 24h May, Active Neurontin 300 MG Orally Three times a day as directed 8h Jun, Active RESULTS No Results PROCEDURES Procedure Date Ordered Result Body Site [facility] ESTABLISHED PATIENT December 14, 2016 IMMUNIZATIONS No Known Immunizations MEDICAL (GENERAL) HISTORY Type Description Date Medical History type II diabetes Medical History hyperlipidemia Medical History hypertension Medical History chronic pain back/knees Surgical History right knee arthroscopy 1994 Surgical History heart cath, 2010--clear Surgical History left knee arthroscopy 2010 Surgical History back surgery with rods 12/2016 Hospitalization History surgeries
--- OUTSIDE RECORDS SUMMARY | 2017-11-07 18:43 | XMS REPORT ---
Author Author NISHI PALENCIA Organization [facility] Address [address] [place] [address] Care Team Providers Care Manager Massage Department Name Role Phone NISHI PALENCIA Unavailable PROBLEMS Type Condition ICD9-CM Code [id number] Code Onset Dates Condition Status SNOMED Code Problem Type 2 diabetes mellitus with hyperglycemia E11.65 Active 755653675 Problem Lumbago with sciatica, left side M54.42 Active 347508294 Problem Controlled type 2 diabetes mellitus without complication, without long -term current use of insulin E11.9 Active 559780247 Problem Type 2 diabetes mellitus with diabetic neuropathy, unspecified E11.40 Active 74114670 Problem Diabetes type 2, controlled E11.9 Active 42377668 Problem Diabetic mononeuropathy associated with type 2 diabetes mellitus E11.41 Active 713628278 Problem Neuropathy G62.9 Active 016545479 Problem Type 2 diabetes mellitus without complications E11.9 Active 542408318 Problem 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 Active 691630310 Problem Slow transit constipation K59.01 Active 83173328 Problem Other chronic pain G89.29 Active 72987576 ALLERGIES No Information SOCIAL HISTORY Never Assessed PLAN OF CARE VITAL SIGNS MEDICATIONS Medication Instructions Dosage Frequency Start Date End Date Duration Status Neurontin 300 MG Orally Three times a day 1 capsule 8h Jun, 90 days Active RESULTS No [...]
--- OUTSIDE RECORDS SUMMARY | 2017-11-07 18:45 | XMS REPORT | Continuity of Care Document ---
Author Author [facility] Organization [facility] Address Unknown Phone Unavailable Allergies Active Description Code Type Severity Reaction Onset Reported/Identified Relationship to Patient Clinical Status Yes NO KNOWN DRUG ALLERGIES UNKNOWN NO KNOWN DRUG ALLERG Yes No Known Drug Allergies [id number] Drug Allergy Unknown N/A 10/08/2011 Medications Medication Packaging Start Date Stop Date Route Dosage Sig INSULIN LISPRO VIAL INJ 100 UNITS/CC (HUMALOG VIAL) Dose(s) 04/08/2017 04/08/2017 TID&1500 NORMAL SALINE 1000CC IV BAG INJ 0.9 % (NS 1000CC IV BAG) ml 04/08/2017 04/23/2017 CONTINUOUSEVERY 0 Hour SIMVASTATIN TAB 10 MG (ZOCOR) Dose(s) 04/08/2017 04/14/2017 QPM&2000 NAPROXEN TAB 500 MG (NAPROSYN) Dose(s) 04/08/2017 04/15/2017 PRN BID LISINOPRIL TAB 40 MG (ZESTRIL) MG 04/09/2017 04/15/2017 Daily&0900 ASA (ASPIRIN) TAB 325 MG (MICHELLE) Dose(s) 04/09/2017 04/15/2017 Daily&0900 METFORMIN TAB 500 MG (GLUCOPHAGE) Dose(s) 04/15/2017 04/15/2017 BID&0800 INSULIN DETEMIR PEN INJ 100 UNITS/CC (LEVEMIR FLEXPEN) Dose(s) 05/07/2017 05/07/2017 QHS&2100 Problems Date Dx Coded Attending Type Code [...] - UNCOMPLICATED, UNCONTROLLED 02/09/2008 ABBE CARO DO K 250.02 DIABETES MELLITUS TYPE II - UNCOMPLICATED, UNCONTROLLED 02/09/2008 250.02 DIABETES MELLITUS TYPE II - UNCOMPLICATED, UNCONTROLLED 02/09/2008 250.02 DIABETES MELLITUS TYPE II - UNCOMPLICATED, UNCONTROLLED 02/09/2008 STACY CARO DOA K 250.02 DIABETES MELLITUS TYPE II - UNCOMPLICATED, UNCONTROLLED 02/09/2008 DEANA NEGRETE APRN N 250.02 DIABETES MELLITUS TYPE II - UNCOMPLICATED, UNCONTROLLED 02/09/2008 NISHI PALENCIA APRN T 250.02 DIABETES MELLITUS TYPE II - UNCOMPLICATED, UNCONTROLLED 02/09/2008 NISHI PALENCIA APRN T 250.02 DIABETES MELLITUS TYPE II - UNCOMPLICATED, UNCONTROLLED 02/09/2008 NISHI PALENCIA APRN T 250.02 DIABETES MELLITUS TYPE II - UNCOMPLICATED, UNCONTROLLED 02/09/2008 NISHI PALENCIA APRN T 250.02 DIABETES MELLITUS TYPE II - UNCOMPLICATED, UNCONTROLLED 02/09/2008 ZULMA PATINO APRN 250.02 DIABETES MELLITUS TYPE II - UNCOMPLICATED, UNCONTROLLED 02/09/2008 NISHI PALENCIA APRN T 250.02 DIABETES MELLITUS TYPE II - UNCOMPLICATED, UNCONTROLLED 02/09/2008 NISHI PALENCIA APRN T 250.02 DIABETES MELLITUS TYPE II - UNCOMPLICATED, UNCONTROLLED 02/09/2008 NISHI PALENCIA APRN T 250.02 DIABETES MELLITUS TYPE II - UNCOMPLICATED, UNCONTROLLED 02/09/2008 NISHI PALENCIA APRN T 250.02 DIABETES MELLITUS TYPE II - UNCOMPLICATED, UNCONTROLLED 02/09/2008 NISHI PALENCIA APRN T 250.02 DIABETES MELLITUS TYPE II - UNCOMPLICATED, UNCONTROLLED 05/15/2008 250.00 DIABETES MELLITUS 05/15/2008 ABBE CARO DO K 250.00 DIABETES MELLITUS 05/15/2008 250.00 DIABETES MELLITUS 05/15/2008 STACY CARO DOA K 250.00 DIABETES MELLITUS POORLY CONTROLLED 05/15/2008 STACY CARO DOA K 250.00 DIABETES MELLITUS POORLY CONTROLLED 05/15/2008 STACY CARO DOA K 250.00 DIABETES MELLITUS POORLY CONTROLLED 05/15/2008 250.00 DIABETES MELLITUS POORLY CONTROLLED 05/15/2008 250.00 DIABETES MELLITUS POORLY CONTROLLED 05/15/2008 GORDO KIRAN ABBE K 250.00 DIABETES MELLITUS POORLY CONTROLLED 05/15/2008 DEANA NEGRETE APRN N 250.00 DIABETES MELLITUS POORLY CONTROLLED 05/15/2008 NISHI PALENCIA APRN T 250.00 DIABETES MELLITUS POORLY CONTROLLED 05/15/2008 NISHI PALENCIA APRN T 250.00 DIABETES MELLITUS POORLY CONTROLLED 05/15/2008 SLIME JOHNSON, NISHI T 250.00 DIABETES MELLITUS POORLY CONTROLLED 05/15/2008 SLIME JOHNSON, NISHI T 250.00 DIABETES MELLITUS POORLY CONTROLLED 05/15/2008 CAREY JOHNSON ZULMA R 250.00 DIABETES MELLITUS POORLY CONTROLLED 05/15/2008 SLIME JOHNSON, NISHI T 250.00 DIABETES MELLITUS POORLY CONTROLLED 05/15/2008 NISHI PALENCIA APRN 250.00 DIABETES MELLITUS POORLY CONTROLLED 05/15/2008 NISHI PALENCIA APRN T 250.00 DIABETES MELLITUS POORLY CONTROLLED 05/15/2008 NISHI PALENCIA APRN T 250.00 DIABETES MELLITUS POORLY CONTROLLED 05/15/2008 NISHI PALENCIA APRN 250.00 DIABETES MELLITUS POORLY CONTROLLED 09/20/2008 272.0 [...] ABBE K 278.02 OVERWEIGHT 09/20/2008 NICHOLS CASHRADHIKA JOHNSON DEANA N 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 FAMILIAL HYPERCHOLESTEROLEMIA 09/20/2008 DEANA NEGRETE APRN N 278.02 OVERWEIGHT 09/20/2008 NISHI PALENCIA APRN 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 FAMILIAL HYPERCHOLESTEROLEMIA 09/20/2008 NISHI PALENCIA APRN 278.02 OVERWEIGHT 09/20/2008 NISHI PALENCIA APRN 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 FAMILIAL HYPERCHOLESTEROLEMIA 09/20/2008 SLIME GOVERNMENT AFFAIRS RESEARCHER, NISHI T 278.02 OVERWEIGHT 09/20/2008 SLIME GOVERNMENT AFFAIRS RESEARCHER, NISHI T 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 FAMILIAL HYPERCHOLESTEROLEMIA 09/20/2008 SLIME GOVERNMENT AFFAIRS RESEARCHER, NISHI T 278.02 OVERWEIGHT 09/20/2008 SLIME GOVERNMENT AFFAIRS RESEARCHER, NISHI T 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 FAMILIAL HYPERCHOLESTEROLEMIA 09/20/2008 SLIME GOVERNMENT AFFAIRS RESEARCHER, NISHI T 278.02 OVERWEIGHT 09/20/2008 PATINO GOVERNMENT AFFAIRS RESEARCHER, ZULMA R 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 FAMILIAL HYPERCHOLESTEROLEMIA 09/20/2008 PATINO GOVERNMENT AFFAIRS RESEARCHER, ZULMA R 278.02 OVERWEIGHT 09/20/2008 SLIME GOVERNMENT AFFAIRS RESEARCHER, NISHI T 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 FAMILIAL HYPERCHOLESTEROLEMIA 09/20/2008 SLIME GOVERNMENT AFFAIRS RESEARCHER, NISHI T 278.02 OVERWEIGHT 09/20/2008 SLIME GOVERNMENT AFFAIRS RESEARCHER, NISHI T 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 FAMILIAL HYPERCHOLESTEROLEMIA 09/20/2008 SLIME GOVERNMENT AFFAIRS RESEARCHER, NISHI T 278.02 OVERWEIGHT 09/20/2008 SLIME GOVERNMENT AFFAIRS RESEARCHER, NISHI T 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 FAMILIAL HYPERCHOLESTEROLEMIA 09/20/2008 SLIME GOVERNMENT AFFAIRS RESEARCHER, NISHI T 278.02 OVERWEIGHT 09/20/2008 SLIME GOVERNMENT AFFAIRS RESEARCHER, NISHI T 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 FAMILIAL HYPERCHOLESTEROLEMIA 09/20/2008 SLIME GOVERNMENT AFFAIRS RESEARCHER, NISHI T 278.02 OVERWEIGHT 09/20/2008 SLIME GOVERNMENT AFFAIRS RESEARCHER, NISHI T 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 FAMILIAL HYPERCHOLESTEROLEMIA 09/20/2008 SLIME GOVERNMENT AFFAIRS RESEARCHER, NISHI T 278.02 OVERWEIGHT 01/24/2009 959.09 Other And [...] Face And Neck 01/24/2009 ZULMA PATINO APRN R 959.09 Other And Unspecified Injury To Face [...] Face And Neck 11/07/2009 724.2 LUMBAGO 11/07/2009 CARO DO, ABBE K 724.2 LUMBAGO 11/07/2009 724.2 lower back pain 11/07/2009 CARO DO, ABBE K 724.2 lower back pain 11/07/2009 CARO DO, ABBE K 724.2 lower back pain 11/07/2009 CARO DO, ABBE K 724.2 lower back pain 11/07/2009 724.2 lower back pain 11/07/2009 724.2 lower back pain 11/07/2009 CARO DO, ABBE K 724.2 lower back pain 11/07/2009 DEANA NEGRETE APRN 724.2 lower back pain 11/07/2009 NISHI PALENCIA APRN T 724.2 lower back pain 11/07/2009 NISHI PALENCIA APRN T 724.2 lower back pain 11/07/2009 NISHI PALENCIA APRN T 724.2 lower back pain 11/07/2009 NISHI PALENCIA APRN T 724.2 lower back pain 11/07/2009 ZULMA PATINO APRN R 724.2 lower back pain 11/07/2009 NISHI PALENCIA APRN T 724.2 lower back pain 11/07/2009 NISHI PALENCIA APRN T 724.2 lower back pain 11/07/2009 SLIME JOHNSON, NISHI T 724.2 lower back pain 11/07/2009 SLIME BARRONN, NISHI T 724.2 lower back pain 11/07/2009 SLIME BARRONN, NISHI T 724.2 lower back pain 01/21/2010 [...] CARO DO, ABBE K 786.2 Cough 01/21/2010 NICHOLSELSIE ANDINO APRN, DEANA N 465.9 Upper Respiratory Infection 01/21/2010 NICHOLSELSIE ANDINO APRN, DEANA N 786.2 Cough 01/21/2010 NISHI PALENCIA APRN T 465.9 Upper Respiratory Infection 01/21/2010 NISHI PALENCIA APRN T 786.2 Cough 01/21/2010 SLIME JOHNSON, NISHI T 465.9 Upper Respiratory Infection 01/21/2010 NISHI PALENCIA APRN T 786.2 Cough 01/21/2010 SLIME JOHNSON, NISHI T 465.9 Upper Respiratory Infection 01/21/2010 SLIME JOHNSON, NISHI T 786.2 Cough 01/21/2010 NISHI PALENCIA APRN T 465.9 Upper Respiratory Infection 01/21/2010 NISHI PALENCIA APRN T 786.2 Cough 01/21/2010 ZULMA PATINO APRN R 465.9 Upper Respiratory Infection 01/21/2010 ZULMA PATINO APRN R 786.2 Cough 01/21/2010 SLIME GOVERNMENT AFFAIRS RESEARCHER, NISHI T 465.9 Upper Respiratory Infection 01/21/2010 SLIME GOVERNMENT AFFAIRS RESEARCHER, NISHI T 786.2 Cough 01/21/2010 SLIME GOVERNMENT AFFAIRS RESEARCHER, NISHI T 465.9 Upper Respiratory Infection 01/21/2010 SLIME GOVERNMENT AFFAIRS RESEARCHER, NISHI T 786.2 Cough 01/21/2010 SLIME GOVERNMENT AFFAIRS RESEARCHER, NISHI T 465.9 Upper Respiratory Infection 01/21/2010 SLIME GOVERNMENT AFFAIRS RESEARCHER, NISHI T 786.2 Cough 01/21/2010 SLIME GOVERNMENT AFFAIRS RESEARCHER, NISHI T 465.9 Upper Respiratory Infection 01/21/2010 SLIME GOVERNMENT AFFAIRS RESEARCHER, NISHI T 786.2 Cough 01/21/2010 SLIME GOVERNMENT AFFAIRS RESEARCHER, NISHI T 465.9 Upper Respiratory Infection 01/21/2010 SLIME BARRONN, NISHI T 786.2 Cough 03/06/2010 110.4 Dermatophytosis, Of Foot 03/06/2010 CARO DO, ABBE K 110.4 Dermatophytosis, Of Foot 03/06/2010 110.4 Dermatophytosis, Of Foot 03/06/2010 CARO DO ABBE K 110.4 Dermatophytosis, Of Foot 03/06/2010 CARO DO, ABBE K 110.4 Dermatophytosis, Of Foot 03/06/2010 CARO DO, ABBE K 110.4 Dermatophytosis, Of Foot 03/06/2010 110.4 Dermatophytosis, Of Foot 03/06/2010 110.4 Dermatophytosis, Of Foot 03/06/2010 CARO DO, ABBE K 110.4 Dermatophytosis, Of Foot 03/06/2010 DEANA NEGRETE APRN 110.4 Dermatophytosis, Of Foot 03/06/2010 NISHI PALENCIA APRN T 110.4 Dermatophytosis, Of Foot 03/06/2010 NISHI PALENCIA APRN T 110.4 Dermatophytosis, Of Foot 03/06/2010 NISHI PALENCIA APRN T 110.4 Dermatophytosis, Of Foot 03/06/2010 NISHI PALENCIA APRN T 110.4 Dermatophytosis, Of Foot 03/06/2010 ZULMA PATINO APRN R 110.4 Dermatophytosis, Of Foot 03/06/2010 NISHI PALENCIA APRN T 110.4 Dermatophytosis, Of Foot 03/06/2010 NISHI PALENCIA APRN 110.4 Dermatophytosis, Of Foot 03/06/2010 NISHI PALENCIA APRN 110.4 Dermatophytosis, Of Foot 03/06/2010 NISHI PALENCIA APRN 110.4 Dermatophytosis, Of Foot 03/06/2010 NISHI PALENCIA APRN 110.4 Dermatophytosis, Of Foot 07/15/2010 466.0 Bronchitis, [...] ABBE K 780.79 Malaise And Fatigue 07/15/2010 NICHOLSELSIE ANDINO APRN, DEANA N 466.0 Bronchitis, Acute 07/15/2010 NICHOLS THU GOVERNMENT AFFAIRS RESEARCHER, DEANA N 780.79 Malaise And Fatigue 07/15/2010 NISHI PALENCIA APRN T 466.0 Bronchitis, Acute 07/15/2010 NISHI PALENCIA APRN 780.79 Malaise And Fatigue 07/15/2010 NISHI PALENCIA APRN T 466.0 Bronchitis, Acute 07/15/2010 NISHI PALENCIA APRN 780.79 Malaise And Fatigue 07/15/2010 NISHI PALENCIA APRN T 466.0 Bronchitis, Acute 07/15/2010 NISHI PALENCIA APRN 780.79 Malaise And Fatigue 07/15/2010 SLIME GOVERNMENT AFFAIRS RESEARCHER, NISHI T 466.0 Bronchitis, Acute 07/15/2010 SLIME GOVERNMENT AFFAIRS RESEARCHER, NISHI T 780.79 Malaise And Fatigue 07/15/2010 CAREY GOVERNMENT AFFAIRS RESEARCHER, ZULMA R 466.0 Bronchitis, Acute 07/15/2010 CAREY GOVERNMENT AFFAIRS RESEARCHER, ZULMA R 780.79 Malaise And Fatigue 07/15/2010 SLIME GOVERNMENT AFFAIRS RESEARCHER, NISHI T 466.0 Bronchitis, Acute 07/15/2010 SLIME GOVERNMENT AFFAIRS RESEARCHER, NISHI T 780.79 Malaise And Fatigue 07/15/2010 SLIME GOVERNMENT AFFAIRS RESEARCHER, NISHI T 466.0 Bronchitis, Acute 07/15/2010 SLIME GOVERNMENT AFFAIRS RESEARCHER, NISHI T 780.79 Malaise And Fatigue 07/15/2010 SLIME GOVERNMENT AFFAIRS RESEARCHER, NISHI T 466.0 Bronchitis, Acute 07/15/2010 SLIME GOVERNMENT AFFAIRS RESEARCHER, NISHI T 780.79 Malaise And Fatigue 07/15/2010 SLIME GOVERNMENT AFFAIRS RESEARCHER, NISHI T 466.0 Bronchitis, Acute 07/15/2010 SLIME GOVERNMENT AFFAIRS RESEARCHER, NISHI T 780.79 Malaise And Fatigue 07/15/2010 SLIME GOVERNMENT AFFAIRS RESEARCHER, NISHI T 466.0 Bronchitis, Acute 07/15/2010 SLIME GOVERNMENT AFFAIRS RESEARCHER, NISHI T 780.79 Malaise And Fatigue 01/31/2011 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 01/31/2011 401.1 HYPERTENSION, BENIGN ESSENTIAL 01/31/2011 STACY CARO DOA K 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 01/31/2011 GORDO KIRAN ABBE K 401.1 HYPERTENSION, BENIGN ESSENTIAL 01/31/2011 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 01/31/2011 401.1 ESSENTIAL HYPERTENSION BENIGN 01/31/2011 GORDO KIRAN ABBE K 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 01/31/2011 GORDO KIRAN ABBE K 401.1 ESSENTIAL HYPERTENSION BENIGN 01/31/2011 GORDO KIRAN ABBE K 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 01/31/2011 GORDO KIRAN ABBE K 401.1 ESSENTIAL HYPERTENSION BENIGN 01/31/2011 [...] 01/31/2011 401.1 ESSENTIAL HYPERTENSION BENIGN 01/31/2011 GORDO KIRANABBE K 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 01/31/2011 CARO ABEB K 401.1 ESSENTIAL HYPERTENSION BENIGN 01/31/2011 DEANA NEGRETE APRN 249.60 Secondary Diabetes Mellitus With Neurological [...] PALENCIA APRN 401.1 ESSENTIAL HYPERTENSION BENIGN 01/31/2011 ZULMA PATINO APRN 249.60 Secondary Diabetes Mellitus With Neurological [...] NISHI PALENCIA APRN 786.50 CHEST PAIN 10/08/2011 ZULMA PATINO APRN 786.50 CHEST PAIN 10/08/2011 NISHI PALENCIA APRN 786.50 CHEST PAIN 10/08/2011 NISHI PALENCIA APRN 786.50 CHEST PAIN 10/08/2011 NISHI PALENCIA APRN 786.50 CHEST PAIN 10/08/2011 NISHI PALENCIA APRN 786.50 CHEST PAIN 10/08/2011 NISHI PALENCIA APRN 786.50 CHEST PAIN 10/08/2011 Ot 250.00 DIAB FAISAL WO COMPL, TYPE II OR UNSPEC TY 10/08/2011 Ot 722.52 LUMB/ LUMBOSAC DISC DEGEN 10/08/2011 Ot 724.8 OTHER BACK SYMPTOMS 10/08/2011 Ot 786.50 CHEST PAIN NOS 10/08/2011 Ot V58.67 LONG-TERM ( CURRENT) USE OF INSULIN 10/08/2011 Ot V58.69 OTH MED,LT, CURRENT USE 10/21/2011 Ot 250.00 DIAB FAISAL WO COMPL, TYPE II OR UNSPEC TY 10/21/2011 Ot 272.4 HYPERLIPIDEMIA NEC/NOS 10/21/2011 Ot 278.00 OBESITY, NOS 10/21/2011 Ot 401.9 HYPERTENSION NOS 10/21/2011 Ot 414.01 CORONARY ATHEROSCLEROSIS OF [place] CORON 10/21/2011 Ot 724.5 BACKACHE NOS 10/21/2011 Ot 786.50 CHEST PAIN NOS 10/21/2011 Ot 794.30 ABN CARDIOVASC STUDY NOS 10/21/2011 Ot V17.49 FAMILY HISTORY OF OTHER CARDIOVASCULAR D 10/21/2011 Ot V58.66 LONG-TERM ( CURRENT) USE OF ASPIRIN 10/21/2011 Ot V58.67 LONG-TERM ( CURRENT) USE OF INSULIN 10/21/2011 Ot V58.69 OTH MED,LT, CURRENT USE 10/21/2011 Ot V85.41 BODY MASS INDEX [...] Checkup Adult 40-64 10/13/2012 709.9 skin lesion [ Sx] 10/13/2012 V70.0 Preventive Medicine Estab Patient Checkup Adult 40-64 10/13/2012 709.9 skin lesion [ Sx] 10/13/2012 V70.0 Preventive Medicine Estab Patient Checkup Adult 40-64 10/13/2012 ABBE CARO DO 709.9 skin lesion [Sx] 10/13/2012 ABBE CARO DO V70.0 Preventive Medicine Estab Patient Checkup Adult 40-64 10/13/2012 DEANA NEGRETE APRN 709.9 skin lesion [Sx] 10/13/2012 DEANA NEGRETE APRN V70.0 Preventive Medicine Estab Patient [...] Checkup Adult 40-64 10/13/2012 ZULMA PATINO APRN R 709.9 skin lesion [Sx] 10/13/2012 ZULMA PATINO APRN R V70.0 Preventive Medicine Estab Patient Checkup Adult [...] Estab Patient Checkup Adult 40-64 05/12/2013 CARO DO, ABBE K 700 CORNS AND CALLOSITIES 05/12/2013 CARO DO, ABBE K 782.3 EDEMA 05/12/2013 DEANA NEGRETE APRN 700 CORNS AND CALLOSITIES 05/12/2013 DEANA NEGRETE APRN N 782.3 EDEMA 05/12/2013 SLIME JOHNSON, NISHI T 700 CORNS AND CALLOSITIES 05/12/2013 NISHI PALENCIA APRN T 782.3 EDEMA 05/12/2013 SLIME BARRONN, NISHI T 700 CORNS AND CALLOSITIES 05/12/2013 NISHI PALENCIA APRN T 782.3 EDEMA 05/12/2013 NISHI PALENCIA APRN T 700 CORNS AND CALLOSITIES 05/12/2013 NISHI PALENCIA APRN T 782.3 EDEMA 05/12/2013 SLIME BARRONN, NIHSI T 700 CORNS AND CALLOSITIES 05/12/2013 NISHI PALENCIA APRN T 782.3 EDEMA 05/12/2013 CAREY JOHNSON, ZULMA R 700 CORNS AND CALLOSITIES 05/12/2013 CAREY JOHNSON ZULMA R 782.3 EDEMA 05/12/2013 NISHI PALENCIA APRN T 700 CORNS AND CALLOSITIES 05/12/2013 NISHI PALENCIA APRN 782.3 EDEMA 05/12/2013 SLIME JOHNSON NISHI T 700 CORNS AND CALLOSITIES 05/12/2013 NISHI PALENCIA APRN T 782.3 EDEMA 05/12/2013 SLIME JOHNSON, NISHI T 700 CORNS AND CALLOSITIES 05/12/2013 NISHI PALENCIA APRN 782.3 EDEMA 05/12/2013 SLIME JOHNSON, NISHI T 700 CORNS AND CALLOSITIES 05/12/2013 NISHI PALENCIA APRN T 782.3 EDEMA 05/12/2013 NISHI PALENCIA APRN T 700 CORNS AND CALLOSITIES 05/12/2013 NISHI PALENCIA APRN 782.3 EDEMA 08/08/2013 DEANA NEGRETE APRN N 465.9 ACUTE UPPER RESPIRATORY INFECTIONS OF UNSPECIFIED SITE 08/08/2013 NISHI PALENCIA APRN 465.9 ACUTE UPPER RESPIRATORY INFECTIONS OF UNSPECIFIED SITE 08/08/2013 NISHI PALENCIA APRN 465.9 ACUTE UPPER RESPIRATORY INFECTIONS OF UNSPECIFIED SITE 08/08/2013 NISHI PALENCIA APRN 465.9 ACUTE UPPER RESPIRATORY INFECTIONS OF UNSPECIFIED SITE 08/08/2013 NISHI PALENCIA APRN 465.9 ACUTE UPPER RESPIRATORY INFECTIONS OF UNSPECIFIED SITE 08/08/2013 ZULMA PATINO APRN R 465.9 ACUTE UPPER RESPIRATORY INFECTIONS OF UNSPECIFIED [...] UPPER RESPIRATORY INFECTIONS OF UNSPECIFIED SITE 04/09/2014 JEFERSON RUBALCAVA MD Ot 401.9 HYPERTENSION NOS 04/09/2014 JEFERSON RUBALCAVA MD Ot 593.9 RENAL URETERAL DIS NOS 04/09/2014 JEFERSON RUBALCAVA MD Ot 724.2 LUMBAGO 04/16/2014 ZULMA PATINO APRN [...] PALENCIA Ot G89.29 OTHER CHRONIC PAIN 01/05/2017 BURTON SUMIT Eric Ot E11.9 TYPE 2 DIABETES MELLITUS WITHOUT COMPLIC 01/05/2017 BURTON SUMIT K Ot I10 ESSENTIAL (PRIMARY) HYPERTENSION 01/05/2017 BURTON SUMIT K Ot M25.571 PAIN IN RIGHT ANKLE AND JOINTS OF RIGHT 01/05/2017 BURTON SUMIT K Ot M54.16 RADICULOPATHY, LUMBAR REGION 01/05/2017 DEVANTE MANRIQUE DOA K Ot Z79.4 SHELTER (CURRENT) USE OF INSULIN 01/05/2017 DEVANTE MANRIQUE DOA K Ot Z79.82 SHELTER (CURRENT) USE OF ASPIRIN 01/05/2017 DEVANTE MANRIQUE DOA K Ot Z79.84 RESIDENTIAL SUPPORT SPECIALIST (CURRENT) USE OF ORAL HYPOGLYC 01/05/2017 DEVANTE MANRIQUE DOA K Ot Z98.890 OTHER SPECIFIED POSTPROCEDURAL STATES 04/09/2017 Sander Nair V64.3 PROCEDURE NOT CARRIED OUT FOR OTHER REASONS 04/09/2017 Sander Nair Z53.8 PROCEDURE AND TREATMENT NOT CARRIED OUT FOR OTHER REASONS 06/06/2017 DAIJA FANG Ot E11.40 TYPE 2 DIABETES MELLITUS WITH DIABETIC N 06/06/2017 DAIJA FANG Ot G47.33 OBSTRUCTIVE SLEEP APNEA (ADULT) (PEDIATR 06/06/2017 DAIJA FANG Ot I10 ESSENTIAL (PRIMARY) HYPERTENSION 06/06/2017 DAIJA FANG Ot M47.9 SPONDYLOSIS, UNSPECIFIED 06/06/2017 DAIJA FANG Ot M54.5 LOW BACK PAIN 06/06/2017 DAIJA FANG Ot R10.9 UNSPECIFIED ABDOMINAL PAIN 06/06/2017 DAIJA FANG Ot S39.012A STRAIN OF MUSCLE, FASCIA AND TENDON OF L 06/06/2017 DAIJA FANG Ot Z79.4 RESIDENTIAL SUPPORT SPECIALIST (CURRENT) USE OF INSULIN 06/06/2017 DAIJA FANG Ot Z79.82 RESIDENTIAL SUPPORT SPECIALIST (CURRENT) USE OF ASPIRIN 06/06/2017 DAIJA FANG Ot Z87.891 PERSONAL HISTORY OF NICOTINE DEPENDENCE 09/27/2017 NISHI PALENCIA Ot E27.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 09/27/2017 NISHI PALENCIA Ot R07.81 PLEURODYNIA 09/30/2017 NISHI PALENCIA Ot E27.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 09/30/2017 NISHI PALENCIA Ot N28.1 CYST OF KIDNEY, ACQUIRED 09/30/2017 NIHSI PALENCIA STEEPLECHASE JOCKEY Ot R07.81 PLEURODYNIA 10/14/2017 NISHI PALENCIA Ot E27.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 10/14/2017 NISHI PALENCIAP Ot N28.1 CYST OF KIDNEY, ACQUIRED 10/14/2017 NISHI PALENCIA Ot R07.81 PLEURODYNIA Procedures Code Description [place] [address] ROUTINE VENIPUNCTURE 07/07/2012 99213 A1C (IN-HOUSE) 07/07/2012 88707 URINE DRUG SCREEN (IN-HOUSE ) 07/07/2012 93233 MICRO ALBUMIN-IN HOUSE 07/07/2012 13325 CMP 07/07/2012 47676 LIPID PANEL 07/07/2012 [id number] GFR CALC (RESULT ONLY) 07/07/2012 52661 CPK 07/08/2012 33618 ROUTINE VENIPUNCTURE 10/13/2012 40955 A1C (IN-HOUSE) 10/13/2012 85540 MICRO ALBUMIN-IN HOUSE 10/13/2012 49217 CMP 10/13/2012 [id number] GFR CALC (RESULT ONLY) 10/13/2012 35883 HEMOCCULT 10/20/2012 83952 HEMOCCULT 10/20/2012 14194 EXCISION BENIGN LESION 2.1- 3 cm (specify location in [facility] description) 10/31/2012 40829 ROUTINE VENIPUNCTURE 01/16/2013 64165 A1C (IN-HOUSE) 01/16/2013 93042 CMP 01/16/2013 59669 LIPID PANEL 01/16/2013 89899 MICRO ALBUMIN-IN HOUSE 05/12/2013 94288 A1C (IN-HOUSE) 05/12/2013 38255 A1C (IN-HOUSE) 10/20/2013 74528 ROUTINE VENIPUNCTURE 12/29/2013 47436 CMP 12/29/2013 45782 LIPID PANEL 12/29/2013 27390 CBC 12/29/2013 28122 A1C (IN-HOUSE) 02/21/2014 46097 HEMOCCULT 04/16/2014 77855 A1C (IN-HOUSE) 06/25/2014 82625 MICRO ALBUMIN-IN HOUSE 06/25/2014 Results Test Result Range CBC With Differential/Platelet - 05/15/16 09:22 WBC 7.4 x10E3/uL 3.4-10.8 RBC 4.92 x10E6/uL 4.14-5.80 Hemoglobin 14.1 g/dL 12.6-17.7 Hematocrit 42.8 % 37.5-51.0 MCV 87 fL 79-97 MCH 28.7 pg 26.6-33.0 MCHC 32.9 g/dL 31.5-35.7 RDW 14.2 % 12.3-15.4 Platelets 196 x10E3/uL 150-379 Neutrophils 60 % Lymphs 30 % Monocytes 6 % Eos 3 % Basos 1 % Neutrophils (Absolute) 4.4 x10E3/uL 1.4-7.0 Lymphs (Absolute) 2.2 x10E3/uL 0.7-3.1 Monocytes(Absolute) 0.4 x10E3/uL 0.1-0.9 Eos (Absolute) 0.2 x10E3/uL 0.0-0.4 Baso (Absolute) 0.1 x10E3/uL 0.0-0.2 Immature Granulocytes 0 % Immature Grans (Abs) 0.0 x10E3/uL 0.0-0.1 Comp. Metabolic Panel (14) - 05/15/16 09:22 Glucose, Serum 305 mg/dL 65-99 BUN 22 mg/dL 8-27 Creatinine, Serum 1.31 mg/dL 0.76-1.27 eGFR If NonAfricn Am 56 mL/min/1.73 >59 eGFR If Africn Am 65 mL/min/1.73 >59 BUN/Creatinine Ratio 17 10-22 Sodium, Serum 139 mmol/L 134-144 Potassium, Serum 4.4 mmol/L 3.5-5.2 Chloride, Serum 99 mmol/L 97-108 Carbon Dioxide, Total 23 mmol/L 18-29 Calcium, Serum 9.1 mg/dL 8.6-10.2 Protein, Total, Serum 6.5 g/dL 6.0-8.5 Albumin, Serum 4.4 g/dL 3.6-4.8 Globulin, Total 2.1 g/dL 1.5-4.5 A/G Ratio 2.1 1.1-2.5 Bilirubin, Total 0.5 mg/dL 0.0-1.2 Alkaline Phosphatase, S 61 IU/L 39-117 AST (SGOT) 25 IU/L 0-40 ALT (SGPT) 30 IU/L 0-44 Lipid Panel - 05/15/16 09:22 Cholesterol, Total 191 mg/dL 100-199 Triglycerides 294 mg/dL 0-149 HDL Cholesterol 23 mg/dL >39 VLDL Cholesterol Ralph 59 mg/dL 5-40 LDL Cholesterol Calc 109 mg/dL 0-99 Complete blood count (CBC) with automated white blood cell (WBC) differential - 01/05/17 18:13 Blood leukocytes automated count (number/volume) 8.3 10*3/uL 4.3-11.0 Blood erythrocytes automated count (number/volume) 4.46 10*6/uL 4.35-5.85 Venous blood hemoglobin measurement (mass/volume) 12.5 [...] Automated blood platelet mean volume measurement 10.6 [foz_us] 7.4-10.4 Automated blood neutrophils/100 leukocytes 66 % [...] Serum or plasma sodium measurement (moles/volume) 142 mmol/L 135-145 Serum or plasma potassium measurement (moles/volume) 4.7 mmol/L 3.6-5.0 Serum or plasma chloride measurement (moles/volume) 107 mmol/L 98-107 Carbon dioxide 22 mmol/L 21-32 Serum or plasma anion gap determination (moles/volume) 13 mmol/L 5-14 Serum or plasma urea nitrogen measurement (mass/volume) 22 mg/dL 7-18 Serum or plasma creatinine measurement (mass/volume) 1.59 mg/dL 0.60-1.30 Serum or plasma urea nitrogen/creatinine mass [...] poor plasma bycoagulation assay 31 s 24-35 Protime - 04/06/17 10:54 INR 1.0 1.0-4.0 Protime 12.1 Sec 9.9-12.8 Comprehensive Metabolic Panel - 04/06/17 10:54 Albumin 3.8 g/dL 3.6-5.1 ALP 77 U/L 35-130 ALT 40 U/L 6-45 Anion Gap 17 6-14 AST 38 U/L 2-40 BUN 33 mg/dL 5-25 Calcium 9.1 mg/dL 8.3-10.4 Chloride 106 mmol/L 95-114 CO2 22 mEq/L 22-33 Creat 1.46 mg/dL 0.50-1.50 eGFR 48 mL/min/1.73m2 >59 Globulin 3.0 g/dL 2.3-3.5 Glucose 234 mg/dL 70-110 Osmo 303 280-295 Potassium 4.8 mmol/L 3.5-5.3 Sodium 140 mmol/L 134-148 TBil 0.5 mg/dL 0.2-1.2 TP 6.8 g/dL 6.0-8.3 Complete urinalysis with reflex to culture - 06/06/17 11:59 Urine color determination YELLOW NRG Urine clarity determination CLEAR NRG Urine pH measurement by test strip 6 5-9 Specific gravity of urine by test strip 1.020 1.016- 1.022 Urine protein assay by test strip, semi-quantitative 1+ NEGATIVE Urine glucose detection by automated test strip 2+ NEGATIVE Erythrocytes detection in urine sediment by light microscopy NEGATIVE NEGATIVE Urine ketones detection by automated test strip NEGATIVE NEGATIVE Urine nitrite detection by test strip NEGATIVE NEGATIVE Urine total bilirubin detection by test strip NEGATIVE NEGATIVE Urine urobilinogen measurement by automated test strip (mass/volume) NORMAL NORMAL Urine leukocyte esterase detection by dipstick NEGATIVE NEGATIVE Automated urine sediment erythrocyte count by microscopy (number/high power field) NONE NRG Automated urine sediment leukocyte count by microscopy (number/high power field ) RARE NRG Bacteria detection in urine sediment by light microscopy NEGATIVE NRG Squamous epithelial cells detection in urine sediment by light microscopy 5-10 NRG Crystals detection in urine sediment by light microscopy NONE NRG Casts detection in urine sediment by light microscopy NONE NRG Mucus detection in urine sediment by light microscopy NEGATIVE NRG Complete urinalysis with reflex to culture NO NRG [id number] - 09/24/17 13:23 Serum or plasma urea nitrogen measurement (mass/volume) 25 mg/dL 7-18 Serum or plasma creatinine measurement (mass/volume) 1.33 mg/dL 0.60-1.30 Serum or plasma urea nitrogen/creatinine mass ratio 19 NRG Serum or plasma creatinine measurement with calculation of estimated glomerular filtration rate 54 NRG Encounters ACCT No. Visit Date/Time Discharge Status Pt. Type Provider Facility Loc./Unit Complaint [id number] 09/24/2017 13:09:00 09/24/2017 23:59:59 CLS Outpatient NISHI PALENCIA [facility] RAD LT FLANK PAIN R10.9 [id number] 06/06/2017 11:26:00 06/06/2017 13:44:00 DIS Emergency DAIJA FANG [facility] ER BACK/L SIDE PAIN [id number] 01/05/2017 17:42:00 01/05/2017 19:27:00 DIS Emergency BURTON DOSUMIT K [facility] ER POST OP/R FOOT PAIN AND TOE DISCOLORATION [id number] 03/17/2016 15:10:00 03/17/2016 23:59:59 CLS Outpatient NISHI PALENCIA [facility] RAD OTHER CHRONIC PAIN [id number] 04/09/2014 10:08:00 04/09/2014 11:57:00 DIS Emergency JEFERSON RUBALCAVA MD [facility] ER BACK PAIN [id number] 03/04/2012 12:02:00 Document Registration [id number] 10/20/2011 15:10:00 Document Registration [id number] 10/20/2011 11:10:00 Document Registration [id number] 10/15/2011 11:11:00 Document Registration [id number] 10/08/2011 10:32:00 Document Registration [id number] 08/15/2014 11:23:00 08/15/2014 23:59:59 CLS Outpatient NISHI PALENCIA APRN [id number] 07/25/2014 11:25:00 07/25/2014 23:59:59 CLS Outpatient NISHI PALENCIA APRN [id number] 06/25/2014 11:05:00 06/25/2014 23:59:59 CLS Outpatient NISHI PALENCIA APRN [id number] 05/23/2014 10:05:00 05/23/2014 23:59:59 CLS Outpatient NISHI PALENCIA APRN [id number] 04/23/2014 09:17:00 04/23/2014 23:59:59 CLS Outpatient NISHI PALENCIA APRN [id number] 04/16/2014 13:23:00 04/16/2014 23:59:59 CLS Outpatient ZULMA PATINO APRN Yobani [id number] 02/21/2014 11:53:00 02/21/2014 23:59:59 CLS Outpatient NISHI PALENCIA APRN [id number] 12/29/2013 09:51:00 12/29/2013 23:59:59 CLS Outpatient NISHI PALENCIA APRN [id number] 11/24/2013 11:09:00 11/24/2013 23:59:59 CLS Outpatient NISHI PALENCIA APRN [id number] 10/20/2013 10:36:00 10/20/2013 23:59:59 CLS Outpatient NISHI PALENCIA APRN Viry [id number] 08/08/2013 09:11:00 08/08/2013 23:59:59 CLS Outpatient DEANA NEGRETE APRN Pollo [id number] 05/12/2013 15:48:00 05/12/2013 23:59:59 CLS Outpatient ABBE CARO DO [id number] 10/31/2012 10:53:00 10/31/2012 23:59:59 CLS Outpatient ABBE CARO DO [id number] 10/20/2012 10:06:00 10/20/2012 23:59:59 CLS Outpatient ABBE CARO DO [id number] 10/13/2012 09:50:00 10/13/2012 23:59:59 CLS Outpatient ABBE CARO DO [id number] 09/15/2012 11:48:00 09/15/2012 23:59:59 CLS Outpatient [id number] 07/07/2012 07:45:00 07/07/2012 23:59:59 CLS Outpatient ABBE CARO DO [id number] 07/07/2012 07:45:00 07/07/2012 23:59:59 CLS Outpatient [id number] 01/16/2013 13:04:00 Document Registration [id number] 10/13/2012 09:50:00 Document Registration [id number] 05/16/2016 08:07:00 Document Registration [id number] 04/09/2017 00:00:00 04/09/2017 10:30:00 DIS Outpatient Sander Nair [id number] 04/06/2017 10:08:00 04/06/2017 23:59:00 DIS Outpatient Sander Nair [id number] 04/08/2017 15:30:37 Document Registration [id number] 10/12/2017 15:30:00 10/12/2017 23:59:59 CLS [facility]
--- NOTE | 2017-11-07 20:15 | ED Cough/URI ---
General Chief Complaint: Cough/Cold/Flu Symptoms Stated Complaint: CONGESTED,COUGH,SOB Nursing Triage Note: PT C/O COUGH, CONGESTION, SWEATS, SOA X 1 WEEK WITH WORSENING OF SYMPTOMS TODAY. Source: patient Exam Limitations: no limitations History of Present Illness Date Seen by Provider: Nov 07, 2017 Time Seen by Provider: 20:15 Allergies and Home Medications Allergies Coded Allergies: No Known Drug Allergies (Unverified , 10/08/11) Home Medications Albuterol Sulfate 2.5 Mg/3 Ml Vial.neb, 2.5 MG IH Q4H PRN for SHORTNESS OF BREATH Prescribed by: DAIJA ROSA on 11/07/172206 Aspirin 325 Mg Tab, 325 MG PO DAILY, (Reported) Cefdinir 300 Mg Capsule, 300 MG PO BID Prescribed by: DAIJA ROSA on 11/07/172206 Cyclobenzaprine HCl 5 Mg Tablet, 5 MG PO TID PRN for MUSCLE SPASMS, (Reported) Etodolac 400 Mg Tablet, 1 EACH PO TID, (Reported) Gabapentin 800 Mg Tablet, 800 MG PO TID, (Reported) Insulin Aspart 10 Unit/0.1 Ml Vial, 33 UNIT SQ TID, (Reported) Insulin Detemir 100 Unit/1 Ml Insuln.pen, 90 UNIT SQ DAILY, (Reported) Lisinopril 40 Mg Tablet, 40 MG PO DAILY, (Reported) Metformin Hcl 500 Mg Tab, 1,000 MG PO TID, (Reported) Prednisone 20 Mg Tab, 20 MG PO DAILY Prescribed by: DAIJA ROSA on 06/06/17 1329 Prednisone 20 Mg Tab, 40 MG PO DAILY Prescribed by: DAIJA ROSA on 11/07/172206 Promethazine HCl/Codeine 118 Ml Syrup, 5 ML PO Q4H PRN for COUGH Prescribed by: DAIJA ROSA on 11/07/172206 [Oxycod/Apap] TAB, 1 TAB PO Q8H PRN for PAIN-SEVERE TO BREAKTHROUGH, (Reported) Past Yyirric-Badiyt-Bmresf Hx Patient Social History Alcohol Use: Denies Use Recreational Drug Use: No Smoking Status: Never a Smoker Former Smoker, Quit: Aug 09, 1979 2nd Hand Smoke Exposure: No Recent Foreign Travel: No Contact w/Someone Who Travel: No Recent Infectious Disease Expo: No Recent Hopitalizations: No Seasonal Allergies Seasonal Allergies: No Surgeries History of Surgeries: Yes (left knee scope, L5 surgery 02/22) Surgeries: Cardiac, Neurological, Orthopedic Respiratory History of Respiratory Disorde: No Respiratory Disorders: Sleep Apnea Cardiovascular History of Cardiac Disorders: Yes (HEART CATH X2) Cardiac Disorders: Hypertension Neurological History of Neurological Disord: Yes Neurological Disorders: Neuropathy Reproductive System Hx Reproductive Disorders: No Genitourinary History of Genitourinary Disor: No Gastrointestinal History of Gastrointestinal Di: No Musculoskeletal History of Musculoskeletal Dis: Yes Musculoskeletal Disorders: Degenerate Disk Disease, Chronic Back Pain Endocrine History of Endocrine Disorders: Yes Endocrine Disorders: Diabetes, Insulin dep HEENT History of HEENT Disorders: No Cancer History of Cancer: No Psychosocial History of Psychiatric Problem: No Integumentary History of Skin or Integumenta: No Blood Transfusions History of Blood Disorders: No Family Medical History Significant Family History: No Pertinent Family Hx Physical Exam Vital Signs Vital Signs - First Documented Capillary Refill : Less Than 3 Seconds Progress/Results/Core Measures Suspected Sepsis Recent Fever Within 48 Hours: No Infection Criteria Present: None New/Unexplained Altered Menta: No Sepsis Screen: No Definite Risk Sepsis Diagnosis: SIRS Temperature:98.9 Pulse: 77 Respiratory Rate: 20 Blood Pressure 172 /103 Mean: 126 Results/Orders Micro Results Microbiology 11/07/17 Influenza Types A,B Antigen ([facility]) - Final, Complete My Orders Orders - DAIJA ROSA Chest Pa/Lat (2 View) (11/07/17 19:56) Influenza A And B Antigens (11/07/17 20:47) Acetaminophen Tablet (Tylenol Tablet) (11/07/17 20:47) Promethazine/ Codeine Syrup (Phenergan W (11/07/17 20:47) Albuterol/Ipra Inhalation Soln (Duoneb I (11/07/17 21:00) Svn Sm Volume Nebulizer Rt-Rfs (11/07/17 20:47) Medications Given in ED Current Medications Medications Dose Ordered Sig/Colleen Route Start Time Stop Time Status Last Admin Dose Admin Albuterol/ Ipratropium 3 ml ONCE ONCE INH 11/07/17 21:00 11/07/17 21:01 DC 11/07/17 21:28 3 ML Vital Signs/I&O Vital Sign - Last 12Hours 11/07/17 11/07/17 11/07/17 19:49 19:49 21:29 Temp 98.9 Pulse 77 Resp 20 B/P (MAP) 172/103 (126) Pulse Ox 96 95 O2 Delivery Room Air Room Air Room Air Capillary Refill : Less Than 3 Seconds Blood Pressure Mean: 126 Departure Impression Impression: Primary Impression: Bronchitis Disposition: 01 HOME, SELF-CARE Condition: Improved Departure-Patient Inst. Decision time for Depature: 21:59 Referrals: BLAYNE CONTRERAS MD (PCP) Primary Care Physician NISHI PALENCIA (Family) Primary Care Physician Patient Instructions: Flu, Adult (DC) Add. Discharge Instructions: All discharge instructions reviewed with patient and/or family. Voiced understanding. Medications as instructed. Tylenol over the counter as directed for pain. Motrin over the counter as directed for pain. Afrin nasal spray for nasal congestion. Follow-up with [facility] for recheck this week. Call for appointment time. Return to the emergency department for worsened symptoms or any other concerns. Scripts Promethazine HCl/Codeine (Promethazine-Codeine Syrup) 118 Ml Syrup 5 ML PO Q4H Y for COUGH, #120 ML 0 Refills Prov: DAIJA ROSA 11/07/17 Cefdinir (Cefdinir) 300 Mg Capsule 300 MG PO BID, #14 CAP 0 Refills Prov: DAIJA ROSA 11/07/17 Albuterol Sulfate (Albuterol Sulfate) 2.5 Mg/3 Ml Vial.neb 2.5 MG IH Q4H Y for SHORTNESS OF BREATH, #25 EA 0 Refills Prov: DAIJA ROSA 11/07/17 Prednisone (Prednisone) 20 Mg Tab 40 MG PO DAILY, #10 TAB 0 Refills Prov: DAIJA ROSA 11/07/17 DAIJA ROSA Nov 07, 2017 20:15
--- NOTE | 2017-11-07 20:33 | Diagnostic Imaging Report ---
EXAM: CHEST PA/LAT (2 VIEW) INDICATION: Shortness of air. Congestion. COMPARISON: Chest radiograph 10/20/2011. FINDINGS: Heart size and pulmonary vascularity at the upper limits of normal. Calcified aorta. No focal pulmonary opacity, pleural effusion or pneumothorax. No acute osseous findings. IMPRESSION: Heart size and pulmonary vascularity at the upper limits of normal. No focal airspace consolidation. Dictated by: Dictated on workstation # [id number]
[2017-11-07] MEDS ORDERED: ACETAMINOPHEN 500 MG TAB (TYLENOL) PO STA (20:47)
[2017-11-07] MEDS ORDERED: PROMETHAZINE/ CODEINE SYRUP 5 ML UDC PO STA (20:47)
[2017-11-07] MEDS ORDERED: RT-ALBUTEROL/IPRATROPIUM 3 ML (DUONEB) VIAL INH ONE (21:00)
[2017-11-07] MEDS ORDERED: ALBU2.5V4 IH (22:07)
[2017-11-07] MEDS ORDERED: CEFD300C3 PO (22:07)
[2017-11-07] MEDS ORDERED: CODE118S2 PO (22:07)
[2017-11-07] MEDS ORDERED: PRD20T PO (22:07)
[2017-11-07 22:35] VITALS: BP 172/103
== END 2017-11-07 22:15 | disposition home or self-care (01) ==
LOC: EDUNIT# 18:37 → ER 18:38
DX: J40 Bronchitis, not specified as acute or chronic (principal); E11.40 Type 2 diabetes mellitus with diabetic neuropathy, unspecified; M47.9 Spondylosis, unspecified; I10 Essential (primary) hypertension; G47.30 Sleep apnea, unspecified; Z87.891 Personal history of nicotine dependence; Z79.82 Long term (current) use of aspirin; Z79.4 Long term (current) use of insulin; Z79.52 Long term (current) use of systemic steroids
CPT/HCPCS: 71046; 87804; 94640

== ENCOUNTER 2018-04-20 12:08 | Observation (INO) | payer MEDICARE ==
[~2018-04-20] VITALS: Ht 170.2 cm; Wt 128.9 kg
[~2018-04-20 12:08] MED LIST changes: +ALBU2.5V4 IH; +CEFD300C3 PO; +CODE118S4 PO
--- NOTE | 2018-04-20 12:30 | ED Chest Pain ---
General Chief Complaint: Chest Pain Stated Complaint: CP Source: patient, RN/MD (DELI BAKERY CLERK at [facility]), EMS Exam Limitations: no limitations History of Present Illness Date Seen by Provider: Apr 20, 2018 Time Seen by Provider: 12:15 Initial Comments The patient presents to ER by EMS with chief complaint that he should've the clinic today with complaint of having some chest tightness off and on and dyspnea with exertion as well as orthopnea over the last 2 days. Initial EKG was obtained at the clinic and they mention there might be some ST depression in his lateral leads. The patient has no known personal history of coronary artery disease. He quit smoking 30 years ago. He is a diabetic on insulin. He says she's had 2 heart catheter done by Dr. Munguia the recent one being a couple years ago and no stents placed. No known history of congestive heart failure. He has noticed some swelling in his legs and hands recently. Not on any water pills that he knows of. Not on blood thinners or Plavix but does take a daily baby aspirin. He has an albuterol inhaler and he tried taking a couple puffs off it last night when he was getting short of breath but he said it did not do anything to help. He rates the tightness at about 4 out of 10 at its worse and right now is 0 out of 10. Not worse with deep inspiration. He has a cough that been going on the past couple weeks but nonproductive. No fevers chills but he did have some sweats last night. Allergies and Home Medications Allergies Coded Allergies: No Known Drug Allergies (Unverified , 10/08/11) Home Medications Albuterol Sulfate 2.5 Mg/3 Ml Vial.neb, 2.5 MG IH Q4H PRN for SHORTNESS OF BREATH Prescribed by: DAIJA ROSA on 11/07/172206 Aspirin 325 Mg Tab, 325 MG PO DAILY, (Reported) Cefdinir 300 Mg Capsule, 300 MG PO BID Prescribed by: DAIJA ROSA on 11/07/172206 Cyclobenzaprine HCl 5 Mg Tablet, 5 MG PO TID PRN for MUSCLE SPASMS, (Reported) Etodolac 400 Mg Tablet, 1 EACH PO TID, (Reported) Gabapentin 800 Mg Tablet, 800 MG PO TID, (Reported) Insulin Aspart 10 Unit/0.1 Ml Vial, 33 UNIT SQ TID, (Reported) Insulin Detemir 100 Unit/1 Ml Insuln.pen, 90 UNIT SQ DAILY, (Reported) Lisinopril 40 Mg Tablet, 40 MG PO DAILY, (Reported) Metformin Hcl 500 Mg Tab, 1,000 MG PO TID, (Reported) Prednisone 20 Mg Tab, 20 MG PO DAILY Prescribed by: DAIJA ROSA on 06/06/17 1329 Prednisone 20 Mg Tab, 40 MG PO DAILY Prescribed by: DAIJA ROSA on 11/07/172206 Promethazine HCl/Codeine 118 Ml Syrup, 5 ML PO Q4H PRN for COUGH Prescribed by: DAIJA ROSA on 11/07/172206 [Oxycod/Apap] TAB, 1 TAB PO Q8H PRN for PAIN-SEVERE TO BREAKTHROUGH, (Reported) Patient Home Medication List Home Medication List Reviewed: Yes Review of Systems Review of Systems Constitutional: No chills, No diaphoresis EENTM: No Blurred Vision, No Double Vision Respiratory: Denies Cough; Shortness of Air; Denies Wheezing Cardiovascular: Chest Pain; Denies Edema, Denies Palpitations, Denies Syncope Gastrointestinal: Denies Constipated, Denies Diarrhea, Denies Nausea Genitourinary: Denies Discharge, Denies Drainage Musculoskeletal: No back pain, No joint pain Past Labmnkm-Iasrqw-Beinbo Hx Patient Social History Alcohol Use: Denies Use Recreational Drug Use: No Smoking Status: Never a Smoker Former Smoker, Quit: Aug 09, 1979 2nd Hand Smoke Exposure: No Recent Hopitalizations: No Seasonal Allergies Seasonal Allergies: No Past Medical History Surgeries: Yes (left knee scope, L5 surgery 02/22) Cardiac, Neurological, Orthopedic Respiratory: Yes Sleep Apnea Cardiac: Yes (HEART CATH X2) Hypertension Neurological: Yes Neuropathy Reproductive Disorders: No Genitourinary: No Gastrointestinal: No Musculoskeletal: Yes Degenerate Disk Disease, Chronic Back Pain Endocrine: Yes Diabetes, Insulin dep HEENT: No Cancer: No Psychosocial: No Integumentary: No Blood Disorders: No Family Medical History No Pertinent Family Hx Physical Exam Vital Signs Vital Signs - First Documented 04/20/18 12:16 Temp 96.9 Pulse 55 Resp 20 B/P (MAP) 153/70 (97) Pulse Ox 97 O2 Delivery Room Air Capillary Refill : Height, Weight, BMI Height: 5'7.00" Weight: 271lbs. 11.2oz. 123.888038oc; 43.85 BMI Method:Stated General Appearance: No Apparent Distress, Obese HEENT: PERRL/EOMI, Pharynx Normal; No Moist Mucous Membranes Neck: Full Range of Motion, Supple Respiratory: Chest Non Tender, Lungs Clear, Normal Breath Sounds, No Accessory Muscle Use, No Respiratory Distress Cardiovascular: Regular Rate, Rhythm, No Murmur, Normal Peripheral Pulses, Other (trace bipedal edema) Gastrointestinal: Normal Bowel Sounds, Non Tender, Soft Extremity: Normal Capillary Refill, Normal Inspection, Pedal Edema (trace) Neurologic/Psychiatric: Oriented x3 Skin: Normal Color, Warm/Dry, Other (few scratches on his abdomen from his dog. ) Progress/Results/Core Measures Results/Orders Lab Results Laboratory Tests Test 04/20/18 12:15 Range/Units White Blood Count 6.8 4.3-11.0 10^3/uL Red Blood Count 3.93 L 4.35-5.85 10^6/uL Hemoglobin 11.3 L 13.3-17.7 G/DL Hematocrit 35 L 40-54 % Mean Corpuscular Volume 88 80-99 FL Mean Corpuscular Hemoglobin 29 25-34 PG Mean Corpuscular Hemoglobin Concent 33 32-36 G/DL Red Cell Distribution Width 14.9 H 10.0-14.5 % Platelet Count 163 130-400 10^3/uL Mean Platelet Volume 11.5 H 7.4-10.4 FL Neutrophils (%) (Auto) 71 42-75 % Lymphocytes (%) (Auto) 19 12-44 % Monocytes (%) (Auto) 8 0-12 % Eosinophils (%) (Auto) 2 0-10 % Basophils (%) (Auto) 1 0-10 % Neutrophils # (Auto) 4.8 1.8-7.8 X 10^3 Lymphocytes # (Auto) 1.3 1.0-4.0 X 10^3 Monocytes # (Auto) 0.5 0.0-1.0 X 10^3 Eosinophils # (Auto) 0.1 0.0-0.3 10^3/uL Basophils # (Auto) 0.1 0.0-0.1 10^3/uL Prothrombin Time 14.9 H 12.2-14.7 SEC INR Comment 1.2 0.8-1.4 Activated Partial Thromboplast Time 28 24-35 SEC Sodium Level 135 135-145 MMOL/L Potassium Level 5.4 H 3.6-5.0 MMOL/L Chloride Level 103 98-107 MMOL/L Carbon Dioxide Level 23 21-32 MMOL/L Anion Gap 9 5-14 MMOL/L Blood Urea Nitrogen 28 H 7-18 MG/DL Creatinine 1.49 H 0.60-1.30 MG/DL Estimat Glomerular Filtration Rate 47 BUN/Creatinine Ratio 19 Glucose Level 331 H 70-105 MG/DL Calcium Level 8.7 8.5-10.1 MG/DL Corrected Calcium 8.8 8.5-10.1 MG/DL Magnesium Level 2.4 1.8-2.4 MG/DL Total Bilirubin 0.8 0.1-1.0 MG/DL Aspartate Amino Transf (AST/SGOT) 25 5-34 U/L Alanine Aminotransferase (ALT/SGPT) 28 0-55 U/L Alkaline Phosphatase 59 40-136 U/L Myoglobin 170.9 H 10.0-92.0 NG/ML Troponin I < 0.30 <0.30 NG/ML B-Type Natriuretic Peptide 394.3 H <100.0 PG/ML Total Protein 6.5 6.4-8.2 GM/DL Albumin 3.9 3.2-4.5 GM/DL Lipase 18 8-78 U/L My Orders Orders - TAM ALBRECHT Cbc With Automated Diff (04/20/18 12:) Magnesium (04/20/18 12:22) Chest 1 View, Ap/Pa Only (04/20/18 12:) Ekg Tracing (04/20/18:) Cardiac Profile 1 (04/20/18 12:) Comprehensive Metabolic Panel (04/20/18 12:) Myoglobin Serum (04/20/18 12:) Protime With Inr (04/20/18:) Partial Thromboplastin Time (04/20/18:) O2 (04/20/18:) Monitor-Rhythm Ecg Trace Only (04/20/18:) Lipid Panel (04/21/18 06:00) Saline Lock/Iv-Start (04/20/18 12:) Lipase (04/20/18 12:) BNP (04/20/18 12:22) Vital Signs/I&O 04/20/18 12:16 Temp 96.9 Pulse 55 Resp 20 B/P (MAP) 153/70 (97) Pulse Ox 97 O2 Delivery Room Air Progress Progress Note : Time: 12:33 Progress Note Maybe a bit of a strain pattern on the anterior lateral leads but no significant evidence of ischemia on EKG. We'll obtain labs chest x-ray and add a lipase and BNP. No nitroglycerin is not having any chest discomfort at the time. He received the aspirin already from [facility] according to EMS and [facility]'s report. Dr. Munguia cardiac catheterization 2012: Mild to moderate coronary artery disease with 30-40% stenosis in the proximal and mid LAD. 40-50% stenosis in the proximal right coronary artery. Normal left ventricular size and systolic function. Estimated ejection fraction is 60%. ED ACS 18 points. Not low risk. This patient is not a candidate for early discharge and should receive a standard chest pain evaluation with delayed troponin testing. Initial ECG Impression Date: Apr 20, 2018 Initial ECG Impression Time: 11:45 Initial ECG Rate: 51 Initial ECG Rhythm: Normal Sinus Initial ECG Intervals: QT (451 and QTc) Initial ECG Impression: Normal, Nonspecific Changes, 1st Degree AV Block Initial ECG Comparisson: Unchanged Comment This is the same pattern seen from 2012. No ST elevation or depression. This is the EKG obtained at [facility] all patient was having chest tightness. First-degree AV block is new. EKG : EKG Time: 12:15 Rate: 54 Rhythm: Normal Sinus Intervals: GA (312) ECG Comparisson: Unchanged ECG Impression: Normal, Nonspecific Changes, 1st Degree AV Block Comment No significant ST elevation or depression. Diagnostic Imaging Diagonstic Imaging: Xray Plain Films/CT/US/NM/MRI: chest (1v) Comments VIA [facility], [facility]. [place], [place] NAME: KRISTAL MEJIA Koffi [facility] REC#: [id number] PT STATUS: REG ER : 1950 PHYSICIAN: TAM ALBRECHT MD ADMIT DATE: 04/20/18/ER Draft Date of Exam:04/20/18 CHEST 1 VIEW, AP/PA ONLY Indication: Shortness of breath. Time of exam 12:39 PM Correlation is made with prior study from 11/07/2017. The heart is enlarged but stable. Central vascularity is mildly prominent but there is no evidence of congestive failure. No parenchymal consolidation or effusion is seen. No pneumothorax is identified. Impression: Cardiomegaly and mild central congestion. Dictated on workstation # [id number] Dict: 04/20/18 1247 Trans: 04/20/18 1248 CVB [id number] Interpreted by: JAMAR GARCÍA MD Electronically signed by: Reviewed: Reviewed by Me Consults : Consulting Physician: RODERICK MUNGUIA MD Consults Notes Called left a message and while he is in the catheter lab and he sent his PA Estefany down to interview the patient. Departure Communication (Admissions) Time/Spoke to Admitting Phy: 15:00 Discussed case lab imaging findings with Dr. Solorzano and she agrees to accept the patient on observation for chest pain. Time/Spoke to Consulting Phy: 15:[address] Munguia has examined the patient and they agree that the patient should be observed and obtain a 2-D echocardiogram as well as plan for a nuclear medicine stress test in the morning. Impression Primary Impression: Chest pain Qualified Codes: R07.9 - Chest pain, unspecified Disposition: ADMITTED INPATIENT Condition: Stable Admissions Decision to Admit Reason: Admit from ER (General) Decision to Admit/Date: Apr 20, 2018 Time/Decision to Admit Time: 15:11 Departure-Patient Inst. Referrals: BLAYNE CONTRERAS MD (PCP) Primary Care Physician NISHI PALENCIA (Family) Primary Care Physician Copy Copies To 1: ABBE CARO TITUS J Apr 20, 2018 12:30
[2018-04-20 12:38] LABS: BASOPHILS # (AUTO) 0.1 10^3/uL (0.0-0.1); BASOPHILS % (AUTO) 1 % (0-10); EOSINOPHILS # (AUTO) 0.1 10^3/uL (0.0-0.3); EOSINOPHILS % (AUTO) 2 % (0-10); HEMATOCRIT 35 % (40-54); HEMOGLOBIN 11.3 G/DL (13.3-17.7); LYMPHOCYTES # (AUTO) 1.3 X 10^3 (1.0-4.0); LYMPHOCYTES % (AUTO) 19 % (12-44); MEAN CORPUSCULAR HEMOGLOBIN 29 PG (25-34); MEAN CORPUSCULAR HGB CONC 33 G/DL (32-36); MEAN CORPUSCULAR VOLUME 88 FL (80-99); MEAN PLATELET VOLUME 11.5 FL (7.4-10.4); MONOCYTES # (AUTO) 0.5 X 10^3 (0.0-1.0); MONOCYTES % (AUTO) 8 % (0-12); NEUTROPHILS # (AUTO) 4.8 X 10^3 (1.8-7.8); NEUTROPHILS % (AUTO) 71 % (42-75); PLATELET COUNT 163 10^3/uL (130-400); RED BLOOD COUNT 3.93 10^6/uL (4.35-5.85); RED CELL DISTRIBUTION WIDTH 14.9 % (10.0-14.5); WHITE BLOOD COUNT 6.8 10^3/uL (4.3-11.0)
--- NOTE | 2018-04-20 12:49 | Diagnostic Imaging Report ---
Indication: Shortness of breath. Time of exam 12:39 PM Correlation is made with prior study from 11/07/2017. The heart is enlarged but stable. Central vascularity is mildly prominent but there is no evidence of congestive failure. No parenchymal consolidation or effusion is seen. No pneumothorax is identified. Impression: Cardiomegaly and mild central congestion. Dictated by: Dictated on workstation # [id number]
[2018-04-20 12:50] LABS: INR 1.2 (0.8-1.4); PROTHROMBIN TIME PATIENT 14.9 SEC (12.2-14.7)
[2018-04-20 13:00] LABS: ALANINE AMINOTRANSFERASE 28 U/L (0-55); ALBUMIN 3.9 GM/DL (3.2-4.5); ALKALINE PHOSPHATASE 59 U/L (40-136); BILIRUBIN,TOTAL 0.8 MG/DL (0.1-1.0); BUN/CREATININE RATIO 19; CALCIUM 8.7 MG/DL (8.5-10.1); CARBON DIOXIDE 23 MMOL/L (21-32); CHLORIDE 103 MMOL/L (98-107); CREATININE SERUM 1.49 MG/DL (0.60-1.30); GFR ESTIMATED 47; GLUCOSE 331 MG/DL (70-105); LIPASE 18 U/L (8-78); MAGNESIUM 2.4 MG/DL (1.8-2.4); POTASSIUM 5.4 MMOL/L (3.6-5.0); SODIUM 135 MMOL/L (135-145); TOTAL PROTEIN 6.5 GM/DL (6.4-8.2)
[2018-04-20 13:07] LABS: MYOGLOBIN SERUM 170.9 NG/ML (10.0-92.0)
--- NOTE | 2018-04-20 15:04 | Consultation-Cardiology ---
HPI-Cardiology Cardiology Consultation Date of Consultation 04/20/18 Date of Admission Time Seen by Provider: 14:30 Indication: CP, dyspnea HPI Patient is a very pleasant 67 y/o male with history of HTN, HLP, DM, obesity. C/ o increasing dyspnea on exertion over the past several weeks. Presented to [facility] today with complaints of chest pressure and sent to the ER. Currently complains of some dyspnea and substernal pressure. EKG reveals no acute ST changes. Underwent cardiac cath in 2011 revealing moderate nonobstructive disease. No cardiac workup since 2012. Associated orthopnea and peripheral edema. Denies any palpitations or syncope. This is a 67 years old gentleman with history of diabetes mellitus, hypertension hyperlipidemia. Has been having increasing dyspnea over the past few days, reporting dyspnea on exertion with walking to the bathroom, mild substernal heaviness and pressure. Had a moderate disease by cardiac catheterization in 2011. EKG was showing T-wave inversion in the anterolateral leads. Cardec enzymes were negative. He is chest pain-free and no shortness of breath while laying down in bed Home Medications & Allergies Allergies: Coded Allergies: No Known Drug Allergies (Unverified , 10/08/11) Home Medication List Reviewed: Yes JMI-[id number]-[id number] Hx Patient Social History Marital Status: Alcohol Use: Denies Use Recreational Drug Use: No Smoking Status: Never a Smoker 2nd Hand Smoke Exposure: No Recent Foreign Travel: No Recent Infectious Disease Expo: No Recent Hopitalizations: No Past Medical History HTN, HLP, DM, Obesity, CRI Family Medical History Significant Family History: CAD Under 55 Years Old Review of Systems Constitutional: No diaphoresis, No fever, No malaise, No weakness EENTM: No hearing loss, No blurred vision, No double vision Respiratory: No cough; dyspnea on exertion, orthopnea, short of breath; No wheezing Cardiovascular: chest pain, edema; No Hx of Intervention, No palpitations, No syncope, No vascular heart diseas Gastrointestinal: No abdominal pain, No constipation Genitourinary: No frequency, No hematuria Musculoskeletal: No back pain, No joint pain Skin: No lesions, No rash Psychiatric/Neurological: Denies Anxiety, Denies Depressed Reviewed Test Results Reviewed Test Results Lab Laboratory Tests 04/20/18 12:15: White Blood Count 6.8, Red Blood Count 3.93L, Hemoglobin 11.3L, Hematocrit 35L, Mean Corpuscular Volume 88, Mean Corpuscular Hemoglobin 29, Mean Corpuscular Hemoglobin Concent 33, Red Cell Distribution Width 14.9H, Platelet Count 163, Mean Platelet Volume 11.5H, Neutrophils (%) (Auto) 71, Lymphocytes (%) (Auto) 19 , Monocytes (%) (Auto) 8, Eosinophils (%) (Auto) 2, Basophils (%) (Auto) 1, Neutrophils # (Auto) 4.8, Lymphocytes # (Auto) 1.3, Monocytes # (Auto) 0.5, Eosinophils # (Auto) 0.1, Basophils # (Auto) 0.1, Prothrombin Time 14.9H, INR Comment 1.2, Activated Partial Thromboplast Time 28, Sodium Level 135, Potassium Level 5.4H, Chloride Level 103, Carbon Dioxide Level 23, Anion Gap 9, Blood Urea Nitrogen 28H, Creatinine 1.49H, Estimat Glomerular Filtration Rate 47 , BUN/Creatinine Ratio 19, Glucose Level 331H, Calcium Level 8.7, Corrected Calcium 8.8, Magnesium Level 2.4, Total Bilirubin 0.8, Aspartate Amino Transf ( AST/SGOT) 25, Alanine Aminotransferase (ALT/SGPT) 28, Alkaline Phosphatase 59, Myoglobin 170.9H, Troponin I < 0.30, B-Type Natriuretic Peptide 394.3H, Total Protein 6.5, Albumin 3.9, Lipase 18 ECG Impression ECG Initial ECG Rhythm: Normal Sinus Physical Exam Vital Signs Vital Signs - First Documented 04/20/18 04/20/18 12:16 16:34 Temp 96.9 Pulse 55 Resp 20 B/P (MAP) 153/70 (97) Pulse Ox 97 O2 Delivery Room Air FiO2 21 Capillary Refill : Less Than 3 Seconds Height, Weight, BMI Height: 5'7.00" Weight: 271lbs. 11.2oz. [id number]; 43.85 BMI Method:Stated General Appearance: No Apparent Distress, WD/WN HEENT: PERRL/EOMI, Normal ENT Inspection Neck: Full Range of Motion, Normal Inspection, Non Tender, Supple Respiratory: Chest Non Tender, Lungs Clear, No Accessory Muscle Use, Decreased Breath Sounds Cardiovascular: Regular Rate, Rhythm, No Gallop, No JVD, No Murmur Gastrointestinal: Non Tender, Soft Rectal: Deferred Back: No CVA Tenderness Extremity: No Calf Tenderness, Pedal Edema Neurologic/Psychiatric: Alert, Oriented x3, senior medical director II-XII Norm as Tested A/P-Cardiology Admission Diagnosis CP elevated BNP HTN HLP Assessment/Plan Chest pain, nonspecific etiology- EKG reveals SR with no acute ST changes, cardiac enzymes negative. Discussed management plan with patient, he has multiple risk factors for underlying CAD. Will admit, continue to monitor on telemetry. Further evaluation with 2DEcho, stress test in the morning. Dyspnea on exertion- patient reports worsening over the past several weeks. Elevated BNP 394. I will diurese,evaluate 2D Echo Mild to moderate CAD per cardiac cath done 2011. No recent workup done, further evaluation as discussed above. HTN- I will hold lisinopril at this time secondary to hyperkalemia, continue to monitor. HLP- evaluate lipid profile DM- management per PCP Obesity Hyperkalemia- hold lisinopril, continue to monitor. Family hx of CAD <55y/o CRI- continue to monitor renal function. Thank you for allowing us to participate in the management of Mr. Fields. This is Silvina Ferrer PA-C as a scribe for Dr. Munguia This is Dr. Munguia, I have seen and evaluated the patient with Silvina, examined the patient and interviewed him. On examination lungs are clear to auscultation bilaterally, has mild pedal edema. EKG was showing T-wave inversion in the anterolateral leads. Reporting chest pain and dyspnea on exertion which has worsening of the past few days. Planning to evaluate stress test. Monitor cardiac enzymes. Monitor blood pressure, hold lisinopril due to hyperkalemia. I reviewed the current scribe no tenderness. With the typed note , made few minor modifications using Italic Font SILVINA BUNN Apr 20, 2018 15:04 RODERICK MUNGUIA MD Apr 20, 2018 17:43
[2018-04-20] MEDS ORDERED: FUROSEMIDE 40 MG/4 ML INJ (LASIX) IVP ONE (15:15)
--- OUTSIDE RECORDS SUMMARY | 2018-04-20 15:50 | XMS REPORT ---
Author Author NISHI PALENCIA Organization [facility] Address [address] [place] [address] Care Team Providers Care Process Safety Manager Name Role Phone NISHI PALENCIA Unavailable PROBLEMS Type Condition ICD9-CM Code JIH73-DC Code Onset Dates Condition Status SNOMED Code Problem Other chronic pain G89.29 Active 99258468 Problem Neuropathy G62.9 Active 598751638 Problem Slow transit constipation K59.01 Active 22688190 Problem Essential (primary) hypertension I10 Active 76877056 Problem Chronic kidney disease, stage III (moderate) N18.3 Active 240688660 Problem Mood disorder F39 Active 88663185 Problem Diabetic mononeuropathy associated with type 2 diabetes mellitus E11.41 Active 328854706 Problem Other chronic pain G89.29 Active 62260313 Problem Chronic fatigue R53.82 Active 33803417 Problem Type 2 diabetes mellitus with diabetic neuropathy, unspecified E11.40 Active 25510163 Problem Controlled type 2 diabetes mellitus without complication, without long -term current use of insulin E11.9 Active 210190859 Problem Lumbago with sciatica, left side M54.42 Active 074029763 Problem Diabetes type 2, controlled E11.9 Active 61711857 Problem long term 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 Active 520282019 Problem Type 2 diabetes mellitus with hyperglycemia E11.65 Active 349717209 Problem Type 2 diabetes mellitus without complications E11.9 Active 678664635 ALLERGIES No Information ENCOUNTERS Encounter Location Date Diagnosis [facility] [address] [facility] [id number] [address] May, [facility] [address] [facility] [id number] [address] Apr, Type 2 diabetes mellitus with diabetic neuropathy, unspecified E11.40 ; Other chronic pain G89.29 ; Pain in left knee M25.562 and Pain in right knee M25.561 [facility] [id number] [place] [address] 83749- 0687 Mar, Chronic kidney disease, stage III (moderate) N18.3 ; Essential (primary) hypertension I10 ; Type 2 diabetes mellitus without complication, unspecified 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.9 ; Simple renal cyst N28.1 and Pain R52 [place] [address] [address]- 7078 Mar, Seborrheic keratoses L82.1 [place] [address] 26436- 6352 Mar, Type 2 diabetes mellitus with hyperglycemia E11.[address] [address]- 6[address] Feb, Seborrheic keratoses L82.1 and Type 2 diabetes mellitus with diabetic neuropathy, unspecified E11.[address] 6[address]73- 5544 Feb, Type 2 diabetes mellitus with diabetic neuropathy, unspecified E11.40 ; Renal insufficiency N28.9 and Chronic fatigue R53.[address] [address]- 7361 Jan, Pneumonia of both lower lobes due to infectious organism J18.1 and Mood disorder F39 [place] [id number] [place] [address] 12482- 6321 Jan, BMI 40.0-44.9, adult Z68.41 [place] [id number] [place] [address] 72725- [address] Jan, [address] [address]- 4009 Jan, [facility] [address] [address] [id number] [place] [address] 32272 -0092 Jan, Wheezes R06.2 ; Diabetes type 2, controlled E11.9 and Pneumonia of right lower lobe due to infectious organism J18.1 [place] [address], [place] [address] 4[address] Jan, Renal insufficiency N28.9 [facility] [id number] [place] [address] 18775- 3837 Jan, Seborrheic keratoses L82.1 [facility] [address], [place] [address] 3278 Jan, [facility] [id number] [place] [address] 99655- 0578 Jan, [facility] [id number] [place] [address] 26875- 6846 Jan, Renal insufficiency N28.9 [facility] [id number] [place] [address] 00673- 5573 Jan, [facility] [id number] [place] [address] 63656- 8135 Jan, Diabetes type 2, controlled E11.9 ; Mood disorder F39 and BMI 40.0-44.9, adult Z68.41 [facility] [address] [place] [address] 33912- 1627 Jan, BMI 40.0-44.9, adult Z68.41 [facility] [address], [place] [address] 6105 December, [facility] [address], [place] [address] 6412 December, [facility] [address], [place] [address] 7331 December, Seborrheic keratoses L82.1 [facility] [address] [id number] [address] 2233 December, Seborrheic keratoses L82.1 [facility] [address], [place] [address]- 8340 December, [facility] [id number] [place] [address] 25772- 9052 December, [facility] [id number] [place] [address] 30962- 7330 December, BMI 40.0-44.9, adult Z68.41 [facility] [id number] [place] [address] 53010- 6440 December, [facility] [id number] [place] [address] 38574- 2388 December, [facility] [id number] [place] [address] 27809- 3509 Nov, [facility] [address] [id number] [place] [address] 21766- 5373 Nov, [facility] [id number] [place] [address] 38019- 5169 Nov, Seborrheic keratoses L82.1 [facility] [id number] [place] [address] 87877- 8248 Nov, Renal insufficiency N28.9 [facility] [address] [id number] [place] [address] 82030- 8577 Nov, [facility] [id number] [place] [address] 61192- 3488 Nov, [facility] [id number] [place] [address] 05191- 9971 Nov, [facility] [id number] [place] [address] 35964- 4143 Nov, Type 2 diabetes mellitus with diabetic neuropathy, unspecified E11.40 ; Other chronic pain G89.29 ; Bronchitis J40 ; Renal cyst N28.1 ; Pain of left foot M79.672 and Pain in right foot M79.671 [facility] [address] [place] [address] 49275- 2239 Oct, Type 2 diabetes mellitus without complications E11.9 [place] [address] [place] [address] 55919- 0700 Oct, SOB (shortness of breath) R06.02 [place] [address] [address] [id number] [place] [address] 04842- 2859 Oct, SOB (shortness of breath) R06.02 [place] [address] [address] [id number] [place] [address] 20891- 5483 Sep, Type 2 diabetes mellitus without complications E11.9 [place] [address] [id number] [place] [address] 68499- 1980 Sep, Left flank pain R10.9 [place] [id number] [place] [address] 23264- 5112 Sep, BMI 40.0-44.9, adult Z68.41 ; Left flank pain R10.9 and Seborrheic keratoses L82.1 [place] [address] [address] [id number] [place] [address] 65411- 3059 Aug, Type 2 diabetes mellitus without complications E11.9 [place] [address] [address] [id number] [place] [address] 27831- 7761 Jul, Type 2 diabetes mellitus without complications E11.9 and Abdominal pain, left lower quadrant R10.32 [facility] [address] [place], [place] [id number] [place] [address] Jun, [place] [address] [place] [address] 88959- 9791 Jun, Type 2 diabetes mellitus without complications E11.9 [place] [address] [place] [address] 47306- 9490 Jun, Controlled type 2 diabetes mellitus without complication, without long-term current use of insulin E11.9 and Seborrheic keratoses L82.1 [facility] [address] [place] [address] 23832 -2376 May, Acute back pain M54.9 [place] [address], [place] [address]- 1768 13 May, 2017 Type 2 diabetes mellitus without complications E11.9 [place] [address] [place] [address] 24014- 4835 28 Apr, 2017 Diabetes type 2, controlled E11.9 ; Lumbago with sciatica, left side M54.42 and Diabetic mononeuropathy associated with type 2 diabetes mellitus E11.41 [place] [id number] [place] [address] 92459- 8407 18 Apr, 2017 Type 2 diabetes mellitus without complications E11.9 [place] [address] [address] [id number] [place] [address] 68195- 1059 05 Apr, 2017 [place] [id number] [place] [address] 30139- 2864 Mar, Type 2 diabetes mellitus without complications E11.9 [place] [id number] [place] [address] 07973- 7690 Feb, Controlled type 2 diabetes mellitus without complication, without long-term current use of insulin E11.9 ; Neuropathy G62.9 and Onychomycosis B35.1 [place] [id number] [place] [address] 22353- 5880 Jan, Type 2 diabetes mellitus with diabetic neuropathy, unspecified E11.40 [place] [address] [place] [address] 85628- 9007 Jan, Type 2 diabetes mellitus with diabetic neuropathy, unspecified E11.40 [place] [address], [place] [address]- 2544 December, Type 2 diabetes mellitus without complications E11.9 [place] [id number] [place] [address] 25076- 4149 December, Slow transit constipation K59.01 and Pain in right hip M25.551 [place] [address] [address] [id number] [place] [address] 36167- 0578 Nov, Type 2 diabetes mellitus without complications E11.9 [facility] [address] [place] [address] 06797- 2145 Oct, Lumbago with sciatica, left side M54.42 and Other chronic pain G89.29 [facility] [id number] [place] [address] 59761- 2080 Sep, Diabetes mellitus E11.9 ; Lumbago with sciatica, left side M54.42 and Type 2 diabetes mellitus without complications E11.9 [place] [id number] [place] [address] 26521- 4471 Aug, Type 2 diabetes mellitus without complications E11.9 and [facility] 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 [facility] [id number] [place] [address] [id number] Aug, Dental examination Z01.20 [facility] [address] [id number] Aug, Dental examination Z01.20 [facility] [id number] [place] [address] 13796 -8638 Aug, Dental abscess K04.7 [facility] [address] [address] [id number] [place] [address] 10958- 9042 Jul, Type 2 diabetes mellitus with hyperglycemia E11.65 and long term 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 [facility] [address] [address] [id number] [place] [address] 44061- 7657 Jul, [place] [address] [address] [id number] [place] [address] 10725- 4380 Jul, Type 2 diabetes mellitus with diabetic neuropathy, unspecified E11.40 [facility] [address] [address] [id number] [place] [address] 26605- 1302 Jun, Type 2 diabetes mellitus with diabetic neuropathy, unspecified E11.40 and Lumbago with sciatica, left side M54.42 [facility] [address] [id number] [place] [address] 38269- 4071 May, Controlled type 2 diabetes mellitus without complication, without long-term current use of insulin E11.9 [place] [address] [id number] [place] [address] 03645- 5340 Apr, Controlled type 2 diabetes mellitus without complication, without long-term current use of insulin E11.9 and Lumbar neuritis M54.16 [place] [address] [address] [id number] [place] [address] 55564- 8613 Mar, [place] [address] [address] [id number] [place] [address] 71822- 1965 Mar, Other chronic pain G89.29 ; Pain in left knee M25.562 ; Sciatica, left side M54.32 ; Pain in left hip M25.552 ; Type 2 diabetes mellitus with hyperglycemia E11.65 ; long term 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 and Mood disorder F39 [place] [address] [address] [id number] [place] [address] 24563- 2570 December, Diabetes type 2, controlled E11.9 [place] [address] [address] [id number] [place] [address] 20525- 6162 December, Diabetes type 2, controlled E11.9 [place] [address] [address] [id number] [place] [address] 56954- 6450 Oct, Shoulder pain, right M25.511 and Knee pain, right M25.561 [place] [address] [address] [id number] [place] [address] 20093- 9718 Oct, Knee pain, left M25.562 [place] [address] [place] [address] 51682- 5809 Sep, Diabetes mellitus E11.9 and Knee pain M25.569 [place] [address] [address] [id number] [place] [address] 95397- 7409 Sep, [place] [address] [place] [address] 28745- 8042 Jun, Type 2 diabetes mellitus with diabetic neuropathy, unspecified E11.40 and Type 2 diabetes mellitus with hyperglycemia E11.65 [facility] [id number] [place] [address] 18259- 4880 May, Diabetes mellitus E11.9 [facility] [id number] [place] [address] 167151- 5887 May, Diabetes mellitus E11.9 and Lumbago with sciatica, left side M54.42 [facility] [id number] [place] [address] 41835- 5104 Jan, Osteoarthritis of knees, bilateral 715.96 [facility] [address] [place] [id number] [place] [address] 60726- 9565 December, [facility] [id number] [place] [address] 49480- 3713 December, Knee pain, bilateral 719.46 [facility] [id number] [place] [address] 15462- 9955 Nov, Knee pain, bilateral 719.46 [facility] [id number] [place] [address] 73840- 0449 Nov, [facility] [id number] [place] [address] 01068- 9755 Nov, [facility] [address] [address]- 0258 Oct, [facility] [id number] [place] [address] 40919- 7146 Oct, [facility] [address], [place] [address]- 3912 Aug, [facility] [id number] [place] [address] 198435- 6258 Aug, [facility] [address]- 9059 Jul, [facility] [address] [id number] [place] [place]- 0840 17 Jul, 2014 [facility] [place] [facility] [address] [id number] [place] [address]- 9902 Jun, [facility] [place] [facility] [address] [id number] [place] [address]- 2176 17 Jun, 2014 [facility] [place] [facility] [address] [id number] [place] 9264 15 May, 2014 [facility] [place] [facility] [address] [id number] [place] [address]- 5940 15 May, 2014 [facility] [place] [facility] [address] [id number] [place] [address]- 6652 15 Apr, 2014 [facility] [place] [facility] [address] [id number] [place] [address]- 5536 15 Apr, 2014 [facility] [place] [facility] [address] [id number] [place] [address]- 8986 08 Apr, 2014 [facility] [place] [facility] [address] [id number] [place] [address]- 3119 08 Apr, 2014 [facility] [place] [facility] [address] [id number] [place] [address]- 6236 Feb, [facility] [place] [facility] [address] [facility] [id number] [place] [address]- 7787 Feb, [facility] [place] [facility] [address] [id number] [place] [address]- 0669 December, [facility] [place] [facility] [address] [id number] [place] [address]- 6922 December, [facility] [place] [facility] [address] [id number] [place] [address]- 5832 December, [facility] [place] [facility] [address] [id number] [place] [address]- 9077 December, [facility] [place] [facility] [address] [id number] [place] [address]- 8333 Nov, [facility] [place] [facility] [address] [id number] [place] [address]- 9939 Nov, [facility] [address] [id number] [place] [address]- 6919 Oct, [facility] [place] [facility] [address] [id number] [place] [address]- 0799 Oct, [facility] [address] [id number] [place] [address]- 9666 Aug, [facility] [address] [id number] [place] [address]- 3376 Aug, [facility] [address] [id number] [place] [address]- 8482 Jul, [facility] [address] [id number] [place] [address]- 2516 Jul, [facility] [address] [id number] [place] [address]- 5646 May, [facility] [address] [id number] [place] [address]- 8402 Jan, [facility] [address] [id number] [place] [address]- 1658 Jan, [facility] [address] [id number] [place] [address]- 7733 December, [facility] [address] [id number] [place] [address]- 2646 Nov, [facility] [place] [facility] [address] [id number] [place] [address]- 2016 Oct, [facility] [place] [facility] [address] [id number] [place] [address]- 7191 19 Oct, 2012 [facility] [place] [facility] [address] [id number] [place] [address]- 8872 14 Oct, 2012 [facility] [place] [facility] [address] [id number] [place] [address]- 2869 Oct, [facility] [place] [facility] [address] [id number] [place] [address]- 8233 Oct, [facility] [place] [facility] [address] [id number] [place] [address]- 9436 Oct, [facility] [place] [facility] [address] [id number] [place] [address]- 2813 Sep, [facility] [place] [facility] [address] [id number] [place] [address]- 7915 Jul, [facility] [place] [facility] [address] [id number] [place] [address]- 9915 Jul, [facility] [place] [facility] [address] [id number] [place] [address]- 3026 Jul, [facility] [place] [facility] [address] [id number] [place] [address]- 1193 Jun, [facility] [place] [facility] [address] [id number] [place] [address]- 9157 Jun, [facility] [place] [facility] [address] [id number] [place] [address]- 1857 Jun, [facility] [place] [facility] [address] [id number] [place] [address]- 8368 Jun, [facility] [place] [facility] [address] [id number] [place] [address]- 3605 Mar, [facility] [place] [facility] [address] [id number] [place] [address]- 3825 Mar, [facility] [place] [facility] [address] [id number] [place] [address]- 8725 Feb, [facility] [place] [facility] [address] [id number] [place] [address]- 3224 Feb, [facility] [place] [facility] [address] [id number] [place] [address]- 4134 December, [facility] [place] [facility] [address], [place] [address]- 2546 December, [facility] [address], [place] [address]- 2546 Nov, [facility] [address], [place] [address]- 2546 Oct, [facility] [address], [place] [address]- 2546 Oct, [facility] [address], [place] [address]- 2546 Jul, [facility] [address] [place] [address] 37291- 2546 Sep, [facility] [address], [place] [address]- 2546 Jul, [facility] [address], [place] [address]- 2546 Jan, [facility] [address], [place] [address]- 6566 Jun, [facility] [address], [place] [address]- 2546 Mar, [facility] [address], [place] [address]- 2546 Jan, [facility] [address] [address]- 2546 December, [facility] [id number] [address]- 2546 Oct, [facility] [id number] [address]- 2546 Sep, IMMUNIZATIONS No Known Immunizations SOCIAL HISTORY Never Assessed REASON FOR VISIT Oxycodone- 02/22 PLAN OF CARE VITAL SIGNS MEDICATIONS Medication Instructions Dosage Frequency Start Date End Date Duration Status Levemir FlexTouch 100 UNIT/ML Subcutaneous Once a day 90 units 24h May, Active Oxycodone-Acetaminophen 10-325 MG Orally every 6 hrs 1 tablet as needed 6h Feb, 28 days Active RESULTS No Results PROCEDURES No Known procedures INSTRUCTIONS MEDICATIONS ADMINISTERED No Known Medications MEDICAL (GENERAL) HISTORY Type Description Date Medical History type II diabetes Medical History hyperlipidemia Medical History hypertension Medical History chronic pain back/knees Surgical History right knee arthroscopy 1994 Surgical History heart cath, 2010--clear Surgical History left knee arthroscopy 2010 Surgical History back surgery with rods 12/2016 Hospitalization History surgeries Hospitalization History [facility] ED- Back/Left Side Pain 06/06/2017 Hospitalization History [facility] ED- Congested, cough and SOB 11/07/2017
--- OUTSIDE RECORDS SUMMARY | 2018-04-20 15:51 | XMS REPORT ---
Author Author NISHI PALENCIA Organization [facility] Address [address] [place] [address] Care Team Providers Care Effervescent Salts Compounder Name Role Phone SLIMENISHI Unavailable PROBLEMS Type Condition ICD9-CM Code LVM23-VK Code Onset Dates Condition Status SNOMED Code Problem Type 2 diabetes mellitus without complications E11.9 Active 638966408 Problem Slow transit constipation K59.01 Active 85673861 Problem Other chronic pain G89.29 Active 52948372 Problem Essential (primary) hypertension I10 Active 55809283 Problem Chronic kidney disease, stage III (moderate) N18.3 Active 471692382 Problem Diabetic mononeuropathy associated with type 2 diabetes mellitus E11.41 Active 751248174 Problem Neuropathy G62.9 Active 840143215 Problem Chronic fatigue R53.82 Active 81808624 Problem Mood disorder F39 Active 93386015 Problem Type 2 diabetes mellitus with hyperglycemia E11.65 Active 030009583 Problem Controlled type 2 diabetes mellitus without complication, without long -term current use of insulin E11.9 Active 684515174 Problem Type 2 diabetes mellitus with diabetic neuropathy, unspecified E11.40 Active 69585149 Problem Lumbago with sciatica, left side M54.42 Active 384725724 Problem Diabetes type 2, controlled E11.9 Active 58162052 Problem snf 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 Active 082537124 ALLERGIES No Known Allergies ENCOUNTERS Encounter Location Date Diagnosis [facility] [address] [facility] [id number] [address] Apr, [facility] [address] [address] Mar, Chronic kidney disease, stage III (moderate) N18.3 ; Essential (primary) hypertension I10 ; Type 2 diabetes mellitus without complication, unspecified whether meterman insulin use E11.9 ; Simple renal cyst N28.1 and Pain R52 [facility] [id number] [place] [address] 08552- 5484 Mar, Seborrheic keratoses L82.1 [facility] [id number] [place] [address] 35106- 5780 Mar, Type 2 diabetes mellitus with hyperglycemia E11.65 [facility] [id number] [place] [address] 38550- 0678 Feb, Seborrheic keratoses L82.1 and Type 2 diabetes mellitus with diabetic neuropathy, unspecified E11.40 [facility] [id number] [place] [address] 84338- 5831 Feb, Type 2 diabetes mellitus with diabetic neuropathy, unspecified E11.40 ; Renal insufficiency N28.9 and Chronic fatigue R53.82 [facility] [id number] [place] [address] 41376- 3283 Jan, Pneumonia of both lower lobes due to infectious organism J18.1 and Mood disorder F39 [facility] [id number] [place] [address] 92687- 9179 Jan, BMI 40.0-44.9, adult Z68.41 [facility] [id number] [place] [address] 81938- 2793 Jan, [facility] [id number] [place] [address] 04344- 1025 Jan, [facility] [id number] [place] [address] 23359 -4446 Jan, Wheezes R06.2 ; Diabetes type 2, controlled E11.9 and Pneumonia of right lower lobe due to infectious organism J18.1 [facility] [id number] [place] [address] 01485- 0209 Jan, Renal insufficiency N28.9 [facility] [id number] [place] [address] 25953- 8377 18 Jan, 2018 Seborrheic keratoses L82.1 [facility] [address] [address] 5623 Jan, [facility] [address] [address]- 7652 Jan, [facility] [id number] [address]- 4718 Jan, Renal insufficiency N28.9 [facility] [id number] [place] [address] 14644- 4721 Jan, [facility] [address] [address]- 7375 Jan, Diabetes type 2, controlled E11.9 ; Mood disorder F39 and BMI 40.0-44.9, adult Z68.41 [facility] [id number] [address]- 7620 Jan, BMI 40.0-44.9, adult Z68.41 [facility] [id number] [address]- 0752 December, [facility] [address] [address]- 5984 December, [facility] [address] [address]- 5215 December, Seborrheic keratoses L82.1 [facility] [address] [address]- 2729 December, Seborrheic keratoses L82.1 [facility] [address] [address]- 7633 December, [facility] [id number] [address]- 0405 December, [facility] [address] [address]- 4040 December, BMI 40.0-44.9, adult Z68.41 [facility] [id number] [address]- 1509 December, [facility] [id number] [place] [address] 15802- 8028 December, [facility] [id number] [place] [address] 40174- 5158 Nov, [facility] [id number] [place] [address] 54852- 5982 Nov, [facility] [id number] [place] [address] 95457- 6050 Nov, Seborrheic keratoses L82.1 [facility] [address] 89034- 1248 Nov, Renal insufficiency N28.9 [facility] [id number] [place] [address] 29646- 6650 Nov, [facility] [id number] [place] [address] 12456- 9380 Nov, [facility] [id number] [place] [address] 46373- 5830 Nov, [facility] [id number] [place] [address] 92136- 3439 Nov, Type 2 diabetes mellitus with diabetic neuropathy, unspecified E11.40 ; Other chronic pain G89.29 ; Bronchitis J40 ; Renal cyst N28.1 ; Pain of left foot M79.672 and Pain in right foot M79.671 [facility] [id number] [place] [address] 61547- 5024 Oct, Type 2 diabetes mellitus without complications E11.9 [facility] [id number] [place] [address] 46339- 6393 Oct, SOB (shortness of breath) R06.02 [facility] [id number] [place] [address] 94643- 6202 Oct, SOB (shortness of breath) R06.02 [facility] [address] [address]- 0447 Sep, Type 2 diabetes mellitus without complications E11.9 [facility] [id number] [place] [address] 43018- 1437 Sep, Left flank pain R10.9 [facility] [id number] [place] [address] 27369- 5022 Sep, BMI 40.0-44.9, adult Z68.41 ; Left flank pain R10.9 and Seborrheic keratoses L82.1 [facility] [id number] [place] [address] 85739- 1833 Aug, Type 2 diabetes mellitus without complications E11.9 [facility] [address] [place] [address] 42798- 7722 Jul, Type 2 diabetes mellitus without complications E11.9 and Abdominal pain, left lower quadrant R10.32 [facility] [address] [place] [id number] [place] [address] Jun, [facility] [id number] [place] [address] 03014- 5746 Jun, Type 2 diabetes mellitus without complications E11.9 [facility] [address] [place] [address] 97051- 7352 Jun, Controlled type 2 diabetes mellitus without complication, without long-term current use of insulin E11.9 and Seborrheic keratoses L82.1 [facility] [address] [address] May, Acute back pain M54.9 [facility] [id number] [place] [address] 37703- 7464 13 May, 2017 Type 2 diabetes mellitus without complications E11.9 [facility] [address] [address]- 9773 28 Apr, 2017 Diabetes type 2, controlled E11.9 ; Lumbago with sciatica, left side M54.42 and Diabetic mononeuropathy associated with type 2 diabetes mellitus E11.41 [facility] [id number] [place] [address] 09710- 3005 18 Apr, 2017 Type 2 diabetes mellitus without complications E11.9 [facility] [id number] [place] [address] 60605- 6016 Apr, [facility] [id number] [place] [address] 72767- 3933 Mar, Type 2 diabetes mellitus without complications E11.9 [facility] [id number] [place] [address] 95375- 0102 Feb, Controlled type 2 diabetes mellitus without complication, without long-term current use of insulin E11.9 ; Neuropathy G62.9 and Onychomycosis B35.1 [facility] [id number] [place] [address] 42823- 2582 Jan, Type 2 diabetes mellitus with diabetic neuropathy, unspecified E11.40 [facility] [id number] [place] [address] 27932- 4767 Jan, Type 2 diabetes mellitus with diabetic neuropathy, unspecified E11.40 [facility] [id number] [place] [address] 29138- 0332 December, Type 2 diabetes mellitus without complications E11.9 [facility] [id number] [place] [address] 65829- 3045 December, Slow transit constipation K59.01 and Pain in right hip M25.551 [facility] [id number] [place] [address] 96851- 3720 Nov, Type 2 diabetes mellitus without complications E11.9 [facility] [id number] [place] [address] 28931- 5764 Oct, Lumbago with sciatica, left side M54.42 and Other chronic pain G89.29 [facility] [id number] [place] [address] 15244- 4263 Sep, Diabetes mellitus E11.9 ; Lumbago with sciatica, left side M54.42 and Type 2 diabetes mellitus without complications E11.9 [facility] [id number] [place] [address] 49589- 5437 Aug, Type 2 diabetes mellitus without complications E11.9 and snf 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 [facility] [id number] [place] [address] [id number] Aug, Dental examination Z01.20 [facility] [address] [id number] Aug, Dental examination Z01.[address] 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 [facility] [id number] [place] [address] 06149- 5597 Jul, [facility] [address] 88490- 9775 Jul, Type 2 diabetes mellitus with diabetic neuropathy, unspecified E11.40 [facility] [address] 10162- 3202 Jun, Type 2 diabetes mellitus with diabetic neuropathy, unspecified E11.40 and Lumbago with sciatica, left side M54.42 [facility] [id number] [place] [address] 13598- 3799 May, Controlled type 2 diabetes mellitus without complication, without long-term current use of insulin E11.9 [facility] [id number] [place] [address] 26707- 9750 08 Apr, 2016 Controlled type 2 diabetes mellitus without complication, without long-term current use of insulin E11.9 and Lumbar neuritis M54.16 [facility] [id number] [place] [address] 99473- 1191 Mar, [facility] [id number] [place] [address] 27372- 0316 Mar, Other chronic pain G89.29 ; Pain in left knee M25.562 ; Sciatica, left side M54.32 ; Pain in left hip M25.552 ; Type 2 diabetes mellitus with hyperglycemia E11.65 ; 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 and Mood disorder F39 [facility] [id number] [place] [address] 27049- 1072 December, Diabetes type 2, controlled E11.9 [facility] [id number] [place] [address] 08245- 5380 December, Diabetes type 2, controlled E11.9 [facility] [id number] [place] [address] 90617- 3067 Oct, Shoulder pain, right M25.511 and Knee pain, right M25.561 [facility] [id number] [place] [address] 33698- 4444 Oct, Knee pain, left M25.562 [facility] [id number] [place] [address] 38760- 6287 Sep, Diabetes mellitus E11.9 and Knee pain M25.569 [facility] [id number] [place] [address] 68549- 6248 Sep, [facility] [id number] [place] [address] 38991- 1824 Jun, Type 2 diabetes mellitus with diabetic neuropathy, unspecified E11.40 and Type 2 diabetes mellitus with hyperglycemia E11.65 [facility] [id number] [place] [address] 86057- 6735 May, Diabetes mellitus E11.9 [facility] [id number] [place] [address] 63147- 8223 May, Diabetes mellitus E11.9 and Lumbago with sciatica, left side M54.42 [facility] [place] [id number] 3310 Jan, Osteoarthritis of knees, bilateral 715.96 [facility] [id number] 6956 December, [facility] [id number] [place] [address] 446497- 0018 December, Knee pain, bilateral 719.46 [facility] [id number] [place] [address], [place] [address]- 4260 Nov, Knee pain, bilateral 719.46 [facility] [id number] [place] [address] 72004- 3486 Nov, [facility] [id number] [place] [address] 36641- 3665 Nov, [facility] [id number] [address]- 3283 Oct, [facility] [id number] [place] [address] 140994- 5836 Oct, [facility] [address] [address]- 9623 Aug, [facility] [address] [address]- 5820 Aug, [facility] [address] [address]- 4196 Jul, [facility] [id number] [address]- 3286 Jul, [facility] [address] [address]- 5376 Jun, [facility] [address] [address]- 9186 Jun, [facility] [place] [facility] [address] [id number] [place] [address]- 1215 15 May, 2014 [facility] [place] [facility] [address] [id number] [place] [address]- 9669 15 May, 2014 [facility] [place] [facility] [address] [id number] [place] [address]- 5403 15 Apr, 2014 [facility] [place] [facility] [address] [id number] [place] [address]- 8654 15 Apr, 2014 [facility] [place] [facility] [address] [id number] [place] [address]- 5096 Apr, [facility] [place] [facility] [address] [id number] [place] [address]- 9737 Apr, [facility] [place] [facility] [address] [id number] [place] [address]- 6029 Feb, [facility] [place] [facility] [address] [id number] [place] [address]- 3876 Feb, [facility] [place] [facility] [address] [id number] [place] [address]- 8305 December, [facility] [place] [facility] [address] [id number] [place] [address]- 3002 December, [facility] [place] [facility] [address] [id number] [place] [address]- 9978 December, [facility] [place] [facility] [address] [id number] [place] [address]- 2661 December, [facility] [place] [facility] [address] [id number] [place] [address]- 5969 Nov, [facility] [place] [facility] [address] [id number] [place] [address]- 9649 Nov, [facility] [place] [facility] [address] [id number] [place] [address]- 9532 Oct, [facility] [place] [facility] [address] [id number] [place] [address]- 2546 Oct, [facility] [address] [id number] [place] [address]- 8530 Aug, [facility] [place] [facility] [address] [id number] [place] [address]- 5027 Aug, [facility] [place] [facility] [address] [id number] [place] [address]- 9527 Jul, [facility] [place] [facility] [address] [id number] [place] [address]- 4546 Jul, [facility] [place] [facility] [address] [id number] [place] [address]- 9789 May, [facility] [place] [facility] [address] [id number] [place] [address]- 7773 Jan, [facility] [place] [facility] [address] [id number] [place] [address]- 3832 Jan, [facility] [place] [facility] [address] [id number] [place] [address]- 5342 December, [facility] [place] [facility] [address] [id number] [place] [address]- 4326 Nov, [facility] [place] [facility] [address] [id number] [place] [address]- 3399 Oct, [facility] [place] [facility] [address] [id number] [place] [address]- 1364 Oct, [facility] [place] [facility] [address] [id number] [place] [address]- 5423 14 Oct, 2012 [facility] [place] [facility] [address] [id number] [place] [address]- 9006 11 Oct, 2012 [facility] [place] [facility] [address] [id number] [place] [address]- 6015 07 Oct, 2012 [facility] [place] [facility] [address] [id number] [place] [address]- 9983 07 Oct, 2012 [facility] [place] [facility] [address] [id number] [place] [address]- 2546 07 Sep, 2012 [facility] [address] [id number] [place] [address]- 6217 Jul, [facility] [place] [facility] [address] [id number] [place] [address] Jul, [facility] [address] [id number] [place] [address] Jul, [facility] [address] [id number] [place] [address] Jun, [facility] [address] [id number] [place] [address] Jun, [facility] [address] [id number] [place] [address] Jun, [facility] [address] [id number] [place] [address] Jun, [facility] [address] [id number] [place] [address] Mar, [facility] [address] [id number] [place] [address] Mar, [facility] [address] [id number] [place] [address] Feb, [facility] [place] [facility] [address] [id number] [place] [address] Feb, [facility] [address] [id number] [place] [address] December, [facility] [place] [facility] [address] [id number] [place] [address] December, [facility] [place] [facility] [address] [id number] [place] [address] Nov, [facility] [place] [facility] [address] [id number] [place] [address] Oct, [facility] [place] [id number] [address] Oct, [facility] [place] [id number] [place] [address] Jul, [facility] [place] [id number] [place] [address] Sep, [facility] [place] [id number] [place] [address] Jul, [facility] [place] [id number] [place] [address] Jan, [facility] [place] [id number] [place] [address] Jun, [facility] [place] [id number] [place] [address] Mar, [facility] [place] [id number] [place] [address] Jan, [facility] [place] [id number] [place] [address] December, [facility] [place] [id number] [place] [address] Oct, [facility] [place] [id number] [address] Sep, IMMUNIZATIONS No Known Immunizations SOCIAL HISTORY Never Assessed REASON FOR VISIT Diabetes -[facility] PLAN OF CARE VITAL SIGNS Height 67 in 2018-02-14 Weight 266.8 lbs 2018-02-14 Temperature 98.1 degrees Fahrenheit 2018-02-14 Heart Rate 67 bpm 2018-02-14 Respiratory Rate 20 2018-02-14 Oximetry on room air:97 % 2018-02-14 BMI 41.78 kg/m2 2018-02-14 Blood pressure systolic 132 mmHg 2018-02-14 Blood pressure diastolic 68 mmHg 2018-02-14 MEDICATIONS Medication Instructions Dosage Frequency Start Date End Date Duration Status Aspirin 325 MG Orally Once a day 1 tablet 24h Active Lipitor 20 mg Orally Once a day 1 tablet 24h May, Active Guaifenesin 400 mg Orally 4 times a day 1 tablet as needed 6h Jan, Active BD Pen Needle Ultrafine 29G X 12.7MM Inject 6h May, Active Lisinopril 40 mg Orally Once a day 1 tablet 24h May, Active Metoprolol Tartrate 100 mg Orally Twice a day 1 tablet with food 12h December Active Oxycodone-Acetaminophen 10-325 MG Orally every 6 hrs 1 tablet as needed 6h Jan, 28 days Active Humalog KwikPen 100 UNIT/ML Subcutaneous 3 times a day 30 units 8h December, Active Neurontin 800 MG Orally Three times a day 1 capsule 8h Feb, Active Metformin HCl 1000 MG Orally Twice a day 1 tablet with meals 12h May, Active ProAir HFA 108 (90 Base) MCG/ACT Inhalation every 6 hrs 2 puffs as needed 6h Oct, Active Doxepin HCl 50 mg Orally Once a day, at night 2 capsules Nov, Active Levemir FlexTouch 100 UNIT/ML Subcutaneous Once a day 90 units 24h May, Active Tessalon Perles 100 MG Orally Three times a day 1 capsule as needed 8h 5 days Active DuoNeb Active RESULTS No Results PROCEDURES Procedure Date Ordered Result Body Site GLYCATED HEMOGLOBIN TEST February 14, 2018 [facility] VISIT ESTABLISHED PATIENT February 14, 2018 LAB NOT BILLED BY [facility] February 14, 2018 VENIPUNCT, ROUTINE* February 14, 2018 INSTRUCTIONS MEDICATIONS ADMINISTERED No Known Medications MEDICAL (GENERAL) HISTORY Type Description Date Medical History type II diabetes Medical History hyperlipidemia Medical History hypertension Medical History chronic pain back/knees Surgical History right knee arthroscopy 1994 Surgical History heart cath, 2010--clear Surgical History left knee arthroscopy 2010 Surgical History back surgery with rods 12/2016 Hospitalization History surgeries Hospitalization History [facility] ED- Back/Left Side Pain 06/06/2017 Hospitalization History [facility] ED- Congested, cough and SOB 11/07/2017
--- OUTSIDE RECORDS SUMMARY | 2018-04-20 15:51 | XMS REPORT ---
Author Author NISHI PALENCIA Organization [facility] Address [address] [place] [address] Care Team Providers Care Automat Watcher Name Role Phone SLIMENISHI Unavailable PROBLEMS Type Condition ICD9-CM Code EVN17-KF Code Onset Dates Condition Status SNOMED Code Problem Type 2 diabetes mellitus without complications E11.9 Active 266401459 Problem Slow transit constipation K59.01 Active 69733091 Problem Other chronic pain G89.29 Active 15628929 Problem Essential (primary) hypertension I10 Active 78535221 Problem Chronic kidney disease, stage III (moderate) N18.3 Active 880700470 Problem Diabetic mononeuropathy associated with type 2 diabetes mellitus E11.41 Active 215617132 Problem Neuropathy G62.9 Active 472187264 Problem Chronic fatigue R53.82 Active 47320060 Problem Mood disorder F39 Active 16217521 Problem Type 2 diabetes mellitus with hyperglycemia E11.65 Active 581086989 Problem Controlled type 2 diabetes mellitus without complication, without long -term current use of insulin E11.9 Active 092015584 Problem Type 2 diabetes mellitus with diabetic neuropathy, unspecified E11.40 Active 98835314 Problem Lumbago with sciatica, left side M54.42 Active 147329145 Problem Diabetes type 2, controlled E11.9 Active 37693695 Problem skilled nursing 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 Active 176334133 ALLERGIES No Known Allergies ENCOUNTERS Encounter Location Date Diagnosis [facility] [address] [facility] [id number] [address] Apr, [facility] [address], [place] [address] Mar, Chronic kidney disease, stage III (moderate) N18.3 ; Essential (primary) hypertension I10 ; Type 2 diabetes mellitus without complication, unspecified whether 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 insulin use E11.9 ; Simple renal cyst N28.1 and Pain R52 [facility] [id number] [place] [address] 79592- 7781 Mar, Seborrheic keratoses L82.1 [facility] [id number] [place] [address] 09965- 1244 Mar, Type 2 diabetes mellitus with hyperglycemia E11.65 [facility] [id number] [place] [address] 15958- 5001 Feb, Seborrheic keratoses L82.1 and Type 2 diabetes mellitus with diabetic neuropathy, unspecified E11.40 [facility] [id number] [place] [address] 37406- 7243 Feb, Type 2 diabetes mellitus with diabetic neuropathy, unspecified E11.40 ; Renal insufficiency N28.9 and Chronic fatigue R53.82 [facility] [id number] [place] [address] 90126- 4166 Jan, Pneumonia of both lower lobes due to infectious organism J18.1 and Mood disorder F39 [facility] [id number] [place] [address] 61059- 6606 Jan, BMI 40.0-44.9, adult Z68.41 [facility] [id number] [place] [address] 34512- 5065 Jan, [facility] [id number] [place] [address] 57525- 9612 Jan, [facility] [id number] [place] [address] 01383 -5153 Jan, Wheezes R06.2 ; Diabetes type 2, controlled E11.9 and Pneumonia of right lower lobe due to infectious organism J18.1 [facility] [id number] [place] [address] 43246- 6458 Jan, Renal insufficiency N28.9 [facility] [id number] [place] [address] 36940- 5010 18 Jan, 2018 Seborrheic keratoses L82.1 [facility] [address] [place] [address] 16[address] Jan, [facility] [address], [place] [address] 6233 Jan, [facility] [id number], [place] [address] 3446 Jan, Renal insufficiency N28.9 [facility] [id number] [place] [address] 88720- 3266 Jan, [facility] [address], [place] [address] 8297 Jan, Diabetes type 2, controlled E11.9 ; Mood disorder F39 and BMI 40.0-44.9, adult Z68.41 [facility] [id number], [place] [address] 8416 Jan, BMI 40.0-44.9, adult Z68.41 [facility] [id number] [address] 2117 December, [facility] [address], [place] [address]- 1227 December, [facility] [address], [place] [address]- 6816 December, Seborrheic keratoses L82.1 [facility] [address], [place] [address]- 5256 December, Seborrheic keratoses L82.1 [facility] [address], [place] [address]- 4006 December, [facility] [id number], [place] [address]- 4855 December, [facility] [address], [place] [address]- 2981 December, BMI 40.0-44.9, adult Z68.41 [facility] [id number] [address]- 7865 December, [facility] [id number] [place] [address] 99690- 5541 December, [facility] [id number] [place] [address] 00265- 4831 Nov, [facility] [id number] [place] [address] 43085- 6187 Nov, [facility] [id number] [place] [address] 69798- 4235 Nov, Seborrheic keratoses L82.1 [facility] [address] 76658- 9042 Nov, Renal insufficiency N28.9 [facility] [id number] [place] [address] 04182- 9027 Nov, [facility] [id number] [place] [address] 35163- 8772 Nov, [facility] [id number] [place] [address] 01600- 8644 Nov, [facility] [id number] [place] [address] 31029- 1951 Nov, Type 2 diabetes mellitus with diabetic neuropathy, unspecified E11.40 ; Other chronic pain G89.29 ; Bronchitis J40 ; Renal cyst N28.1 ; Pain of left foot M79.672 and Pain in right foot M79.671 [facility] [id number] [place] [address] 43076- 6706 Oct, Type 2 diabetes mellitus without complications E11.9 [facility] [id number] [place] [address] 51018- 7557 Oct, SOB (shortness of breath) R06.02 [facility] [id number] [place] [address] 93339- 3040 Oct, SOB (shortness of breath) R06.02 [facility] [address], [place] [address]- 7486 Sep, Type 2 diabetes mellitus without complications E11.9 [facility] [address] [place] [address] 99072- 7228 Sep, Left flank pain R10.9 [facility] [id number] [place] [address] 80244- 2573 Sep, BMI 40.0-44.9, adult Z68.41 ; Left flank pain R10.9 and Seborrheic keratoses L82.1 [facility] [id number] [place] [address] 50986- 3635 Aug, Type 2 diabetes mellitus without complications E11.9 [facility] [address] [place] [address] 77093- 3317 Jul, Type 2 diabetes mellitus without complications E11.9 and Abdominal pain, left lower quadrant R10.32 [facility] [address] [place], [place] [id number] [place] [address] Jun, [facility] [id number] [place] [address] 49949- 6758 Jun, Type 2 diabetes mellitus without complications E11.9 [facility] [address] [place] [address] 76063- 6680 Jun, Controlled type 2 diabetes mellitus without complication, without long-term current use of insulin E11.9 and Seborrheic keratoses L82.1 [facility] [address], [place] [address] May, Acute back pain M54.9 [facility] [id number] [place] [address] 27583- 0779 13 May, 2017 Type 2 diabetes mellitus without complications E11.9 [facility] [address], [place] [address]- 3611 28 Apr, 2017 Diabetes type 2, controlled E11.9 ; Lumbago with sciatica, left side M54.42 and Diabetic mononeuropathy associated with type 2 diabetes mellitus E11.41 [facility] [id number] [place] [address] 18095- 0598 18 Apr, 2017 Type 2 diabetes mellitus without complications E11.9 [facility] [id number] [place] [address] 05029- 7139 Apr, [facility] [id number] [place] [address] 70294- 9401 Mar, Type 2 diabetes mellitus without complications E11.9 [facility] [id number] [place] [address] 27366- 5762 Feb, Controlled type 2 diabetes mellitus without complication, without long-term current use of insulin E11.9 ; Neuropathy G62.9 and Onychomycosis B35.1 [facility] [id number] [place] [address] 01420- 3204 Jan, Type 2 diabetes mellitus with diabetic neuropathy, unspecified E11.40 [facility] [id number] [place] [address] 26834- 0484 Jan, Type 2 diabetes mellitus with diabetic neuropathy, unspecified E11.40 [facility] [id number] [place] [address] 05009- 7190 December, Type 2 diabetes mellitus without complications E11.9 [facility] [id number] [place] [address] 87047- 4935 December, Slow transit constipation K59.01 and Pain in right hip M25.551 [facility] [id number] [place] [address] 90010- 5131 Nov, Type 2 diabetes mellitus without complications E11.9 [facility] [id number] [place] [address] 33125- 3036 Oct, Lumbago with sciatica, left side M54.42 and Other chronic pain G89.29 [facility] [id number] [place] [address] 27124- 6668 Sep, Diabetes mellitus E11.9 ; Lumbago with sciatica, left side M54.42 and Type 2 diabetes mellitus without complications E11.9 [facility] [id number] [place] [address] 41916- 6001 Aug, Type 2 diabetes mellitus without complications E11.9 and skilled nursing 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 [facility] [id number] [place] [address] [id number] Aug, Dental examination Z01.20 [facility] [address] [id number] Aug, Dental examination Z01.20 [facility] [id number] [place] [address] 73426 -2138 Aug, Dental abscess K04.7 [facility] [address] 85073- 3428 Jul, Type 2 diabetes mellitus with hyperglycemia E11.65 and 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 [facility] [id number] [place] [address] 88331- 4389 Jul, [place] [address] 90539- 4146 Jul, Type 2 diabetes mellitus with diabetic neuropathy, unspecified E11.40 [facility] [address] 46601- 5707 Jun, Type 2 diabetes mellitus with diabetic neuropathy, unspecified E11.40 and Lumbago with sciatica, left side M54.42 [facility] [id number] [place] [address] 24406- 3169 May, Controlled type 2 diabetes mellitus without complication, without long-term current use of insulin E11.9 [facility] [id number] [place] [address] 06354- 2060 08 Apr, 2016 Controlled type 2 diabetes mellitus without complication, without long-term current use of insulin E11.9 and Lumbar neuritis M54.16 [facility] [id number] [place] [address] 69532- 5743 Mar, [facility] [id number] [place] [address] 01812- 1700 Mar, Other chronic pain G89.29 ; Pain in left knee M25.562 ; Sciatica, left side M54.32 ; Pain in left hip M25.552 ; Type 2 diabetes mellitus with hyperglycemia E11.65 ; 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 and Mood disorder F39 [facility] [id number] [place] [address] 94874- 2039 December, Diabetes type 2, controlled E11.9 [facility] [id number] [place] [address] 80742- 3281 December, Diabetes type 2, controlled E11.9 [facility] [id number] [place] [address] 91529- 1905 Oct, Shoulder pain, right M25.511 and Knee pain, right M25.561 [facility] [id number] [place] [address] 27620- 1191 Oct, Knee pain, left M25.562 [facility] [id number] [place] [address] 35179- 4941 Sep, Diabetes mellitus E11.9 and Knee pain M25.569 [facility] [id number] [place] [address] 20167- 6504 Sep, [facility] [id number] [place] [address] 13947- 8864 Jun, Type 2 diabetes mellitus with diabetic neuropathy, unspecified E11.40 and Type 2 diabetes mellitus with hyperglycemia E11.65 [facility] [id number] [place] [address] 33383- 1856 May, Diabetes mellitus E11.9 [facility] [id number] [place] [address] 17440- 5979 May, Diabetes mellitus E11.9 and Lumbago with sciatica, left side M54.42 [facility] [id number] 2233 Jan, Osteoarthritis of knees, bilateral 715.96 [facility] [id number]- 3356 December, [facility] [id number] [place] [address] 835073- 0047 December, Knee pain, bilateral 719.46 [facility] [id number] [place] [address], [place] [address]- 6468 Nov, Knee pain, bilateral 719.46 [facility] [id number] [place] [address] 06006- 7734 Nov, [facility] [id number] [place] [address] 22519- 2154 Nov, [facility] [id number] [address]- 1255 Oct, [facility] [id number] [place] [address] 142221- 1915 Oct, [facility] [address], [place] [address]- 2712 Aug, [facility] [address], [place] [address]- 8667 Aug, [facility] [address], [place] [address]- 1636 Jul, [facility] [id number] [address]- 0996 Jul, [facility] [address], [place] [address]- 3636 Jun, [facility] [address], [place] [address]- 7146 Jun, [facility] [place] [facility] [address] [id number] [place] [address]- 6760 15 May, 2014 [facility] [place] [facility] [address] [id number] [place] [address]- 0205 15 May, 2014 [facility] [place] [facility] [address] [id number] [place] [address]- 5116 15 Apr, 2014 [facility] [place] [facility] [address] [id number] [place] [address]- 2876 15 Apr, 2014 [facility] [place] [facility] [address] [id number] [place] [address]- 5083 Apr, [facility] [place] [facility] [address] [id number] [place] [address]- 3679 Apr, [facility] [place] [facility] [address] [id number] [place] [address]- 0088 Feb, [facility] [place] [facility] [address] [id number] [place] [address]- 4508 Feb, [facility] [place] [facility] [address] [id number] [place] [address]- 4483 December, [facility] [place] [facility] [address] [id number] [place] [address]- 1368 December, [facility] [place] [facility] [address] [id number] [place] [address]- 6292 December, [facility] [place] [facility] [address] [id number] [place] [address]- 7965 December, [facility] [place] [facility] [address] [id number] [place] [address]- 6524 Nov, [facility] [place] [facility] [address] [id number] [place] [address]- 2365 Nov, [facility] [place] [facility] [address] [id number] [place] [address]- 0256 Oct, [facility] [place] [facility] [address] [id number] [place] [address]- 2546 Oct, [facility] [address] [id number] [place] [address]- 2282 Aug, [facility] [place] [facility] [address] [id number] [place] [address]- 3208 Aug, [facility] [place] [facility] [address] [id number] [place] [address]- 6314 Jul, [facility] [place] [facility] [address] [id number] [place] [address]- 7754 Jul, [facility] [place] [facility] [address] [id number] [place] [address]- 8304 May, [facility] [place] [facility] [address] [id number] [place] [address]- 6701 Jan, [facility] [place] [facility] [address] [id number] [place] [address]- 5050 Jan, [facility] [place] [facility] [address] [id number] [place] [address]- 9544 December, [facility] [place] [facility] [address] [id number] [place] [address]- 3822 Nov, [facility] [place] [facility] [address] [id number] [place] [address]- 1845 Oct, [facility] [place] [facility] [address] [id number] [place] [address]- 1320 Oct, [facility] [place] [facility] [address] [id number] [place] [address]- 0991 14 Oct, 2012 [facility] [place] [facility] [address] [id number] [place] [address]- 0186 11 Oct, 2012 [facility] [place] [facility] [address] [id number] [place] [address]- 0361 07 Oct, 2012 [facility] [place] [facility] [address] [id number] [place] [address]- 1141 07 Oct, 2012 [facility] [place] [facility] [address] [id number] [place] [address]- 2546 07 Sep, 2012 [facility] [address] [id number] [place] [address]- 3026 Jul, [facility] [place] [facility] [address] [id number] [place] [address] 2546 Jul, [facility] [address] [id number] [place] [address]- 0156 Jul, [facility] [address] [id number] [place] [address]- 5572 Jun, [facility] [address] [id number] [place] [address]- 8203 Jun, [facility] [address] [id number] [place] [address]- 0256 Jun, [facility] [address] [id number] [place] [address]- 5097 Jun, [facility] [address] [id number] [place] [address]- 6616 Mar, [facility] [address] [id number] [place] [address]- 1241 Mar, [facility] [address] [id number] [place] [address]- 7346 Feb, [facility] [place] [facility] [address] [id number] [place] [address]- 4688 Feb, [facility] [address] [id number] [place] [address]- 8966 December, [facility] [place] [facility] [address] [id number] [place] [address]- 8286 December, [facility] [place] [facility] [address] [id number] [place] [address]- 2546 Nov, [facility] [place] [facility] [address] [id number] [place] [address]- 8836 Oct, [facility] [address], [place] [address]- 8147 Oct, [facility] [address], [place] [address]- 5386 Jul, [facility] [address], [place] [address]- 4046 Sep, [facility] [id number] [place] [address] 41442- 5096 Jul, [facility] [address] [place] [address] 48638- 1857 Jan, [facility] [id number] [place] [address] 22942- 6129 Jun, [facility] [id number] [place] [address] 35533- 1393 Mar, [facility] [id number] [place] [address] 13744- 0334 Jan, [facility] [address], [place] [address]- 5502 December, [facility] [address], [place] [address]- 0701 Oct, [facility] [address], [place] [address]- 8543 Sep, IMMUNIZATIONS No Known Immunizations SOCIAL HISTORY Never Assessed REASON FOR VISIT Diabetes-Braulio FAITH PLAN OF CARE Activity Details Follow Up 4 Weeks Reason:dm2 ooc VITAL SIGNS Height 67 in 2018-01-10 Weight 277.8 lbs 2018-01-10 Temperature 97.7 degrees Fahrenheit 2018-01-10 Heart Rate 78 bpm 2018-01-10 Respiratory Rate 20 2018-01-10 BMI 43.5 kg/m2 2018-01-10 Blood pressure systolic 144 mmHg 2018-01-10 Blood pressure diastolic 76 mmHg 2018-01-10 MEDICATIONS Medication Instructions Dosage Frequency Start Date End Date Duration Status Doxepin HCl 50 mg Orally Once a day, at night 2 capsules Nov, Active Lisinopril 40 mg Orally Once a day 1 tablet 24h May, Active BD Pen Needle Ultrafine 29G X 12.7MM Inject 6h May, Active Aspirin 325 MG Orally Once a day 1 tablet 24h Active Metformin HCl 1000 MG Orally Twice a day 1 tablet with meals 12h May, Active Oxycodone-Acetaminophen 10-325 MG Orally every 6 hrs 1 tablet as needed 6h December, 28 days Active Metoprolol Tartrate 100 mg Orally Twice a day 1 tablet with food 12h December Active Lipitor 20 mg Orally Once a day 1 tablet 24h May, Active Neurontin 800 MG Orally Three times a day 1 capsule 8h Feb, Active ProAir HFA 108 (90 Base) MCG/ACT Inhalation every 6 hrs 2 puffs as needed 6h Oct, Active PredniSONE 20 MG Orally Once a day 1 tablet 24h Not-Taking Humalog KwikPen 100 UNIT/ML Subcutaneous 3 times a day 30 units 8h December, Active Levemir FlexTouch 100 UNIT/ML Subcutaneous Once a day 90 units 24h May, Active Lyrica 75 MG Orally Twice a day 1 capsule 12h Jan, 30 days Not -Taking RESULTS No Results PROCEDURES Procedure Date Ordered Result Body Site [facility] VISIT ESTABLISHED PATIENT January 10, 2018 INSTRUCTIONS MEDICATIONS ADMINISTERED No Known Medications MEDICAL (GENERAL) HISTORY Type Description Date Medical History type II diabetes Medical History hyperlipidemia Medical History hypertension Medical History chronic pain back/knees Surgical History right knee arthroscopy 1994 Surgical History heart cath, 2010--clear Surgical History left knee arthroscopy 2010 Surgical History back surgery with rods 12/2016 Hospitalization History surgeries Hospitalization History [facility] ED- Back/Left Side Pain 06/06/2017 Hospitalization History [facility] ED- Congested, cough and SOB 11/07/2017
--- OUTSIDE RECORDS SUMMARY | 2018-04-20 15:52 | XMS REPORT ---
Author Author NISHI PALENCIA Organization [facility] Address [address] [place] [address] Care Team Providers Care Bench Worker Binding Name Role Phone SLIME NISHI Unavailable PROBLEMS Type Condition ICD9-CM Code XJW91-MC Code Onset Dates Condition Status SNOMED Code Problem Type 2 diabetes mellitus without complications E11.9 Active 465590627 Problem Slow transit constipation K59.01 Active 34282010 Problem Other chronic pain G89.29 Active 04554765 Problem Essential (primary) hypertension I10 Active 95803779 Problem Chronic kidney disease, stage III (moderate) N18.3 Active 344199689 Problem Diabetic mononeuropathy associated with type 2 diabetes mellitus E11.41 Active 385697039 Problem Neuropathy G62.9 Active 251319340 Problem Chronic fatigue R53.82 Active 27340990 Problem Mood disorder F39 Active 73597005 Problem Type 2 diabetes mellitus with hyperglycemia E11.65 Active 158648479 Problem Controlled type 2 diabetes mellitus without complication, without long -term current use of insulin E11.9 Active 648289104 Problem Type 2 diabetes mellitus with diabetic neuropathy, unspecified E11.40 Active 68443601 Problem Lumbago with sciatica, left side M54.42 Active 640281831 Problem Diabetes type 2, controlled E11.9 Active 33443358 Problem shelter 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 Active 342336620 ALLERGIES No Information ENCOUNTERS Encounter Location Date Diagnosis [facility] [address] [facility] [id number] [address] Apr, [facility] [address] [address] Mar, Chronic kidney disease, stage III (moderate) N18.3 ; Essential (primary) hypertension I10 ; Type 2 diabetes mellitus without complication, unspecified whether retirement insulin use E11.9 ; Simple renal cyst N28.1 and Pain R52 [facility] [id number] [place] [address] 46118- 9887 Mar, Seborrheic keratoses L82.1 [facility] [id number] [place] [address] 70133- 4672 Mar, Type 2 diabetes mellitus with hyperglycemia E11.65 [facility] [id number] [place] [address] 11071- 5305 Feb, Seborrheic keratoses L82.1 and Type 2 diabetes mellitus with diabetic neuropathy, unspecified E11.40 [facility] [id number] [place] [address] 53746- 0246 Feb, Type 2 diabetes mellitus with diabetic neuropathy, unspecified E11.40 ; Renal insufficiency N28.9 and Chronic fatigue R53.82 [facility] [id number] [place] [address] 24507- 2115 Jan, Pneumonia of both lower lobes due to infectious organism J18.1 and Mood disorder F39 [facility] [id number] [place] [address] 28581- 7469 Jan, BMI 40.0-44.9, adult Z68.41 [facility] [id number] [place] [address] 05351- 7908 Jan, [facility] [id number] [place] [address] 03361- 6444 Jan, [facility] [id number] [place] [address] 04821 -6260 Jan, Wheezes R06.2 ; Diabetes type 2, controlled E11.9 and Pneumonia of right lower lobe due to infectious organism J18.1 [facility] [id number] [place] [address] 45797- 7521 Jan, Renal insufficiency N28.9 [facility] [id number] [place] [address] 57310- 5937 18 Jan, 2018 Seborrheic keratoses L82.1 [facility] [address] [place] [address]- 4056 Jan, [facility] [id number] [place] [address] 67989- 3500 Jan, [facility] [address] [id number] [address] 3414 Jan, Renal insufficiency N28.9 [facility] [id number] [place] [address] 42740- 5825 Jan, [facility] [id number] [place] [address] 05421- 4319 Jan, Diabetes type 2, controlled E11.9 ; Mood disorder F39 and BMI 40.0-44.9, adult Z68.41 [facility] [id number] [place] [address] 23703- 2230 Jan, BMI 40.0-44.9, adult Z68.41 [facility] [id number] [place] [address] 96093- 4242 December, [facility] [id number] [place] [address] 42892- 8885 December, [facility] [id number] [place] [address] 74011- 5243 December, Seborrheic keratoses L82.1 [facility] [address] [address] 4833 December, Seborrheic keratoses L82.1 [facility] [address] [address]- 9360 December, [facility] [id number] [place] [address] 79118- 6928 December, [facility] [address] [address]- 1029 December, BMI 40.0-44.9, adult Z68.41 [facility] [id number] [place] [address] 20323- 4233 December, [facility] [id number] [place] [address] 80328- 6950 December, [facility] [id number] [place] [address] 86933- 7018 Nov, [facility] [id number] [place] [address] 74613- 3050 Nov, [facility] [address] 44165- 0997 Nov, Seborrheic keratoses L82.1 [facility] [address] 48421- 1309 Nov, Renal insufficiency N28.9 [facility] [id number] [place] [address] 02494- 0931 Nov, [facility] [address] 43554- 7053 Nov, [facility] [id number] [place] [address] 18078- 9443 Nov, [facility] [id number] [place] [address] 09145- 3874 Nov, Type 2 diabetes mellitus with diabetic neuropathy, unspecified E11.40 ; Other chronic pain G89.29 ; Bronchitis J40 ; Renal cyst N28.1 ; Pain of left foot M79.672 and Pain in right foot M79.671 [facility] [id number] [place] [address] 10990- 8687 Oct, Type 2 diabetes mellitus without complications E11.9 [facility] [id number] [place] [address] 29064- 9921 Oct, SOB (shortness of breath) R06.02 [facility] [id number] [place] [address] 79442- 2773 Oct, SOB (shortness of breath) R06.02 [facility] [address] [address]- 0855 Sep, Type 2 diabetes mellitus without complications E11.9 [facility] [id number] [place] [address] 32498- 4763 Sep, Left flank pain R10.9 [facility] [id number] [place] [address] 58606- 4353 Sep, BMI 40.0-44.9, adult Z68.41 ; Left flank pain R10.9 and Seborrheic keratoses L82.1 [facility] [address] [place] [address] 09436- 5760 Aug, Type 2 diabetes mellitus without complications E11.9 [facility] [address] [place] [address] 73257- 6733 Jul, Type 2 diabetes mellitus without complications E11.9 and Abdominal pain, left lower quadrant R10.32 [facility] [address] [id number] [address] Jun, [facility] [id number] [place] [address] 61689- 5361 Jun, Type 2 diabetes mellitus without complications E11.9 [facility] [address] [address]- 8341 Jun, Controlled type 2 diabetes mellitus without complication, without long-term current use of insulin E11.9 and Seborrheic keratoses L82.1 [facility] [address] [address] May, Acute back pain M54.9 [facility] [id number] [place] [address] 65850- 6894 13 May, 2017 Type 2 diabetes mellitus without complications E11.9 [facility] [address] [address]- 8494 28 Apr, 2017 Diabetes type 2, controlled E11.9 ; Lumbago with sciatica, left side M54.42 and Diabetic mononeuropathy associated with type 2 diabetes mellitus E11.41 [facility] [id number] [place] [address] 73483- 3159 Apr, Type 2 diabetes mellitus without complications E11.9 [facility] [id number] [place] [address] 88313- 4689 Apr, [facility] [id number] [place] [address] 35426- 3660 Mar, Type 2 diabetes mellitus without complications E11.9 [facility] [id number] [place] [address] 32682- 9822 Feb, Controlled type 2 diabetes mellitus without complication, without long-term current use of insulin E11.9 ; Neuropathy G62.9 and Onychomycosis B35.1 [facility] [id number] [place] [address] 37843- 4792 Jan, Type 2 diabetes mellitus with diabetic neuropathy, unspecified E11.40 [facility] [id number] [place] [address] 08134- 9356 Jan, Type 2 diabetes mellitus with diabetic neuropathy, unspecified E11.40 [facility] [id number] [place] [address] 22297- 2497 December, Type 2 diabetes mellitus without complications E11.9 [facility] [id number] [place] [address] 67933- 5509 December, Slow transit constipation K59.01 and Pain in right hip M25.551 [facility] [id number] [place] [address] 19328- 7395 Nov, Type 2 diabetes mellitus without complications E11.9 [facility] [id number] [place] [address] 05280- 8915 Oct, Lumbago with sciatica, left side M54.42 and Other chronic pain G89.29 [facility] [id number] [place] [address] 78344- 4813 Sep, Diabetes mellitus E11.9 ; Lumbago with sciatica, left side M54.42 and Type 2 diabetes mellitus without complications E11.9 [facility] [id number] [place] [address] 43515- 6258 Aug, Type 2 diabetes mellitus without complications E11.9 and 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 [id number] [place] [address] 21273 -3113 Aug, Dental abscess K04.7 [facility] [id number] [place] [address] 29740- 7308 Jul, Type 2 diabetes mellitus with hyperglycemia E11.65 and shelter 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 [facility] [id number] [place] [address] 05911- 6797 Jul, [facility] [id number] [place] [address] 79954- 2707 Jul, Type 2 diabetes mellitus with diabetic neuropathy, unspecified E11.40 [facility] [id number] [place] [address] 15027- 3055 Jun, Type 2 diabetes mellitus with diabetic neuropathy, unspecified E11.40 and Lumbago with sciatica, left side M54.42 [facility] [id number] [place] [address] 74634- 8511 May, Controlled type 2 diabetes mellitus without complication, without long-term current use of insulin E11.9 [facility] [id number] [place] [address] 27383- 8212 08 Apr, 2016 Controlled type 2 diabetes mellitus without complication, without long-term current use of insulin E11.9 and Lumbar neuritis M54.16 [facility] [id number] [place] [address] 91903- 7852 Mar, [facility] [id number] [place] [address] 44590- 2254 Mar, Other chronic pain G89.29 ; Pain in left knee M25.562 ; Sciatica, left side M54.32 ; Pain in left hip M25.552 ; Type 2 diabetes mellitus with hyperglycemia E11.65 ; 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 and Mood disorder F39 [facility] [id number] [place] [address] 70723- 3887 December, Diabetes type 2, controlled E11.9 [facility] [id number] [place] [address] 58474- 9948 December, Diabetes type 2, controlled E11.9 [facility] [id number] [place] [address] 92035- 1865 Oct, Shoulder pain, right M25.511 and Knee pain, right M25.561 [facility] [id number] [place] [address] 66411- 0817 Oct, Knee pain, left M25.562 [facility] [id number] [place] [address] 45261- 3619 Sep, Diabetes mellitus E11.9 and Knee pain M25.569 [facility] [id number] [place] [address] 20772- 3738 Sep, [facility] [id number] [place] [address] 73656- 2090 Jun, Type 2 diabetes mellitus with diabetic neuropathy, unspecified E11.40 and Type 2 diabetes mellitus with hyperglycemia E11.65 [facility] [id number] [place] [address] 61491- 5657 May, Diabetes mellitus E11.9 [facility] [id number] [place] [address] 56466- 7506 May, Diabetes mellitus E11.9 and Lumbago with sciatica, left side M54.42 [facility] [id number] 6099 Jan, Osteoarthritis of knees, bilateral 715.96 [facility] [id number] 3066 December, [facility] [id number] [place] [address] 106944- 7791 December, Knee pain, bilateral 719.46 [facility] [id number] [place] [address], [place] [address]- 8382 Nov, Knee pain, bilateral 719.46 [facility] [id number] [place] [address] 09973- 6836 Nov, [facility] [id number] [place] [address] 18756- 6642 Nov, [facility] [id number] [address]- 4848 Oct, [facility] [id number] [place] [address] 635566- 5490 Oct, [facility] [address]- 2743 Aug, [facility] [address] [address]- 6626 Aug, [facility] [address] [address]- 8894 Jul, [facility] [id number] [address]- 7436 Jul, [facility] [address] [address]- 4756 Jun, [facility] [address] [address]- 7776 Jun, [facility] [place] [facility] [address] [id number] [place] [address]- 1606 15 May, 2014 [facility] [place] [facility] [address] [id number] [place] [address]- 9206 15 May, 2014 [facility] [place] [facility] [address] [id number] [place] [address]- 2276 15 Apr, 2014 [facility] [place] [facility] [address] [id number] [place] [address]- 7967 15 Apr, 2014 [facility] [place] [facility] [address] [id number] [place] [address]- 1083 08 Apr, 2014 [facility] [place] [facility] [address] [id number] [place] [address]- 9673 Apr, [facility] [place] [facility] [address] [id number] [place] [address]- 9876 Feb, [facility] [place] [facility] [address] [id number] [place] [address]- 4758 Feb, [facility] [place] [facility] [address] [id number] [place] [address]- 9491 December, [facility] [place] [facility] [address] [id number] [place] [address]- 9416 December, [facility] [place] [facility] [address] [id number] [place] [address]- 1925 December, [facility] [place] [facility] [address] [id number] [place] [address]- 8451 December, [facility] [place] [facility] [address] [id number] [place] [address]- 3788 Nov, [facility] [place] [facility] [address] [id number] [place] [address]- 3455 Nov, [facility] [place] [facility] [address] [id number] [place] [address]- 8875 Oct, [facility] [place] [facility] [address] [id number] [place] [address]- 0256 14 Oct, 2013 [facility] [address] [id number] [place] [address]- 9964 Aug, [facility] [place] [facility] [address] [id number] [place] [address]- 8126 Aug, [facility] [place] [facility] [address] [id number] [place] [address]- 3098 Jul, [facility] [place] [facility] [address] [id number] [place] [address]- 2828 Jul, [facility] [place] [facility] [address] [id number] [place] [address]- 6526 May, [facility] [place] [facility] [address] [id number] [place] [address]- 2518 Jan, [facility] [place] [facility] [address] [id number] [place] [address]- 0737 Jan, [facility] [place] [facility] [address] [id number] [place] [address]- 6014 December, [facility] [place] [facility] [address] [id number] [place] [address]- 4605 Nov, [facility] [place] [facility] [address] [id number] [place] [address]- 5889 Oct, [facility] [place] [facility] [address] [id number] [address]- 2584 19 Oct, 2012 [facility] [place] [facility] [address] [id number] [place] [address]- 2828 14 Oct, 2012 [facility] [place] [facility] [address] [id number] [place] [address]- 3749 11 Oct, 2012 [facility] [place] [facility] [address] [id number] [place] [address]- 3536 07 Oct, 2012 [facility] [place] [facility] [address] [id number] [place] [address]- 2546 07 Oct, 2012 [facility] [place] [facility] [address] [id number] [place] [address]- 2546 07 Sep, 2012 [facility] [address] [id number] [place] [address]- 6464 Jul, [facility] [address] [id number] [place] [address] 2546 Jul, [facility] [address] [id number] [place] [address]- 7646 Jul, [facility] [address] [id number] [place] [address]- 9548 Jun, [facility] [address] [id number] [place] [address]- 2893 Jun, [facility] [address] [id number] [place] [address]- 4761 Jun, [facility] [address] [id number] [place] [address]- 0973 Jun, [facility] [address] [id number] [place] [address]- 1683 Mar, [facility] [address] [id number] [place] [address]- 9122 Mar, [facility] [address] [id number] [place] [address]- 1681 Feb, [facility] [address] [id number] [place] [address]- 0944 Feb, [facility] [address] [id number] [place] [address]- 8776 December, [facility] [place] [facility] [address] [id number] [place] [address]- 5936 December, [facility] [address] [id number] [place] [address]- 2546 Nov, [facility] [address] [id number] [place] [address]- 3136 Oct, [facility] [id number] [address]- 8376 Oct, [facility] [address] [address]- 5316 Jul, [facility] [address] [facility] [id number] [place] [address]- 2376 Sep, [facility] [address] [address]- 9526 Jul, [facility] [address] [address]- 2281 Jan, [facility] [address] [address]- 5096 Jun, [facility] [id number] [address] Mar, [facility] [id number] [address] Jan, [facility] [id number] [address] December, [facility] [id number] [address] Oct, [facility] [id number] [address] Sep, IMMUNIZATIONS No Known Immunizations SOCIAL HISTORY Never Assessed REASON FOR VISIT FYI PLAN OF CARE VITAL SIGNS MEDICATIONS Unknown [...] rods 12/2016 Hospitalization History surgeries Hospitalization History [facility] ED- Back/Left Side Pain 06/06/[address] [facility] ED- Congested, cough and SOB 11/07/2017
--- OUTSIDE RECORDS SUMMARY | 2018-04-20 15:52 | XMS REPORT ---
Author Author NISHI PALENCIA Organization [facility] Address [address] [place] [address] Care Team Providers Care Census Enumerator Name Role Phone SLIMENISHI Unavailable PROBLEMS Type Condition ICD9-CM Code GOC12-YT Code Onset Dates Condition Status SNOMED Code Problem Type 2 diabetes mellitus without complications E11.9 Active 715409702 Problem Slow transit constipation K59.01 Active 53110087 Problem Other chronic pain G89.29 Active 43244109 Problem Essential (primary) hypertension I10 Active 60779411 Problem Chronic kidney disease, stage III (moderate) N18.3 Active 471502039 Problem Diabetic mononeuropathy associated with type 2 diabetes mellitus E11.41 Active 537587564 Problem Neuropathy G62.9 Active 026828976 Problem Chronic fatigue R53.82 Active 24375511 Problem Mood disorder F39 Active 91045691 Problem Type 2 diabetes mellitus with hyperglycemia E11.65 Active 159371501 Problem Controlled type 2 diabetes mellitus without complication, without long -term current use of insulin E11.9 Active 058546888 Problem Type 2 diabetes mellitus with diabetic neuropathy, unspecified E11.40 Active 81323865 Problem Lumbago with sciatica, left side M54.42 Active 459950230 Problem Diabetes type 2, controlled E11.9 Active 54826244 Problem [facility] 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 Active 998217591 ALLERGIES No Known Allergies ENCOUNTERS Encounter Location Date Diagnosis [facility] [address] [facility] [id number] [address] Apr, [facility] [address] [address] Mar, Chronic kidney disease, stage III (moderate) N18.3 ; Essential (primary) hypertension I10 ; Type 2 diabetes mellitus without complication, unspecified whether pharmacy intern insulin use E11.9 ; Simple renal cyst N28.1 and Pain R52 [facility] [id number] [place] [address] 06359- 9172 Mar, Seborrheic keratoses L82.1 [facility] [id number] [place] [address] 77271- 2922 Mar, Type 2 diabetes mellitus with hyperglycemia E11.65 [facility] [id number] [place] [address] 67089- 4553 Feb, Seborrheic keratoses L82.1 and Type 2 diabetes mellitus with diabetic neuropathy, unspecified E11.40 [facility] [id number] [place] [address] 74330- 9171 Feb, Type 2 diabetes mellitus with diabetic neuropathy, unspecified E11.40 ; Renal insufficiency N28.9 and Chronic fatigue R53.82 [facility] [id number] [place] [address] 57176- 4944 Jan, Pneumonia of both lower lobes due to infectious organism J18.1 and Mood disorder F39 [facility] [id number] [place] [address] 99926- 7821 Jan, BMI 40.0-44.9, adult Z68.41 [facility] [id number] [place] [address] 55962- 7291 Jan, [facility] [id number] [place] [address] 14633- 1496 Jan, [facility] [id number] [place] [address] 69408 -5599 Jan, Wheezes R06.2 ; Diabetes type 2, controlled E11.9 and Pneumonia of right lower lobe due to infectious organism J18.1 [facility] [id number] [place] [address] 52047- 1447 Jan, Renal insufficiency N28.9 [facility] [id number] [place] [address] 56046- 7695 18 Jan, 2018 Seborrheic keratoses L82.1 [facility] [address] [place] [address] Jan, [facility] [address] [address] Jan, [facility] [id number] [address]- 7356 Jan, Renal insufficiency N28.9 [facility] [id number] [place] [address] 22754- 1705 Jan, [facility] [address] [address] 5[address] Jan, Diabetes type 2, controlled E11.9 ; Mood disorder F39 and BMI 40.0-44.9, adult Z68.41 [facility] [id number] [address] 9516 Jan, BMI 40.0-44.9, adult Z68.41 [facility] [id number] [address] 1750 December, [facility] [address] [address] 2306 December, [facility] [address] [address]- 0359 December, Seborrheic keratoses L82.1 [facility] [address] [address]- 6793 December, Seborrheic keratoses L82.1 [facility] [address] [address] 5241 December, [facility] [id number] [address]- 4791 December, [facility] [address] [address]- 2543 December, BMI 40.0-44.9, adult Z68.41 [facility] [id number] [address]- 1361 December, [facility] [id number] [place] [address] 02068- 1532 December, [facility] [id number] [place] [address] 74764- 3400 Nov, [facility] [id number] [place] [address] 03320- 9491 Nov, [facility] [id number] [place] [address] 75484- 9356 Nov, Seborrheic keratoses L82.1 [facility] [address] 86152- 6360 Nov, Renal insufficiency N28.9 [facility] [id number] [place] [address] 51532- 0207 Nov, [facility] [id number] [place] [address] 47046- 2440 Nov, [facility] [id number] [place] [address] 64833- 7581 Nov, [facility] [id number] [place] [address] 29592- 1651 Nov, Type 2 diabetes mellitus with diabetic neuropathy, unspecified E11.40 ; Other chronic pain G89.29 ; Bronchitis J40 ; Renal cyst N28.1 ; Pain of left foot M79.672 and Pain in right foot M79.671 [facility] [id number] [place] [address] 58657- 5437 Oct, Type 2 diabetes mellitus without complications E11.9 [facility] [id number] [place] [address] 40467- 8249 Oct, SOB (shortness of breath) R06.02 [facility] [id number] [place] [address] 48350- 0956 Oct, SOB (shortness of breath) R06.02 [facility] [address] [address]- 8165 Sep, Type 2 diabetes mellitus without complications E11.9 [facility] [address] [place] [address] 37625- 4664 Sep, Left flank pain R10.9 [facility] [id number] [place] [address] 21916- 0748 Sep, BMI 40.0-44.9, adult Z68.41 ; Left flank pain R10.9 and Seborrheic keratoses L82.1 [facility] [id number] [place] [address] 81132- 5281 Aug, Type 2 diabetes mellitus without complications E11.9 [facility] [address] [place] [address] 80372- 3354 Jul, Type 2 diabetes mellitus without complications E11.9 and Abdominal pain, left lower quadrant R10.32 [facility] [address] [place] [id number] [place] [address] Jun, [facility] [id number] [place] [address] 11093- 3189 Jun, Type 2 diabetes mellitus without complications E11.9 [facility] [address] [place] [address] 05115- 1917 Jun, Controlled type 2 diabetes mellitus without complication, without long-term current use of insulin E11.9 and Seborrheic keratoses L82.1 [facility] [address] [address] May, Acute back pain M54.9 [facility] [id number] [place] [address] 97261- 2097 13 May, 2017 Type 2 diabetes mellitus without complications E11.9 [facility] [address] [address]- 0608 28 Apr, 2017 Diabetes type 2, controlled E11.9 ; Lumbago with sciatica, left side M54.42 and Diabetic mononeuropathy associated with type 2 diabetes mellitus E11.41 [facility] [id number] [place] [address] 86688- 6113 18 Apr, 2017 Type 2 diabetes mellitus without complications E11.9 [facility] [id number] [place] [address] 81966- 7552 Apr, [facility] [id number] [place] [address] 81085- 3155 Mar, Type 2 diabetes mellitus without complications E11.9 [facility] [id number] [place] [address] 83298- 5212 Feb, Controlled type 2 diabetes mellitus without complication, without long-term current use of insulin E11.9 ; Neuropathy G62.9 and Onychomycosis B35.1 [facility] [id number] [place] [address] 40628- 0536 Jan, Type 2 diabetes mellitus with diabetic neuropathy, unspecified E11.40 [facility] [id number] [place] [address] 59719- 7391 Jan, Type 2 diabetes mellitus with diabetic neuropathy, unspecified E11.40 [facility] [id number] [place] [address] 97337- 6851 December, Type 2 diabetes mellitus without complications E11.9 [facility] [id number] [place] [address] 33184- 2558 December, Slow transit constipation K59.01 and Pain in right hip M25.551 [facility] [id number] [place] [address] 97888- 6547 Nov, Type 2 diabetes mellitus without complications E11.9 [facility] [id number] [place] [address] 03642- 0555 Oct, Lumbago with sciatica, left side M54.42 and Other chronic pain G89.29 [facility] [id number] [place] [address] 48614- 4603 Sep, Diabetes mellitus E11.9 ; Lumbago with sciatica, left side M54.42 and Type 2 diabetes mellitus without complications E11.9 [facility] [id number] [place] [address] 10424- 4873 Aug, Type 2 diabetes mellitus without complications E11.9 and [facility] 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 [facility] [id number] [place] [address] [id number] Aug, Dental examination Z01.20 [facility] [address] [id number] Aug, Dental examination Z01.20 [facility] [id number] [place] [address] 41320 -6296 Aug, Dental abscess K04.7 [facility] [address] 10793- 6593 Jul, Type 2 diabetes mellitus with hyperglycemia E11.65 and bread room hand 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 [facility] [id number] [place] [address] 63757- 6951 Jul, [facility] [address] 22215- 9622 Jul, Type 2 diabetes mellitus with diabetic neuropathy, unspecified E11.40 [facility] [address] 94032- 7036 Jun, Type 2 diabetes mellitus with diabetic neuropathy, unspecified E11.40 and Lumbago with sciatica, left side M54.42 [facility] [id number] [place] [address] 22449- 5559 May, Controlled type 2 diabetes mellitus without complication, without long-term current use of insulin E11.9 [facility] [id number] [place] [address] 12612- 5356 08 Apr, 2016 Controlled type 2 diabetes mellitus without complication, without long-term current use of insulin E11.9 and Lumbar neuritis M54.16 [facility] [id number] [place] [address] 51643- 6384 Mar, [facility] [id number] [place] [address] 67943- 2883 Mar, Other chronic pain G89.29 ; Pain in left knee M25.562 ; Sciatica, left side M54.32 ; Pain in left hip M25.552 ; Type 2 diabetes mellitus with hyperglycemia E11.65 ; bread room hand 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 and Mood disorder F39 [facility] [id number] [place] [address] 47901- 2746 December, Diabetes type 2, controlled E11.9 [facility] [id number] [place] [address] 89778- 7257 December, Diabetes type 2, controlled E11.9 [facility] [id number] [place] [address] 10289- 2631 Oct, Shoulder pain, right M25.511 and Knee pain, right M25.561 [facility] [id number] [place] [address] 77525- 3303 Oct, Knee pain, left M25.562 [facility] [id number] [place] [address] 77926- 6631 Sep, Diabetes mellitus E11.9 and Knee pain M25.569 [facility] [id number] [place] [address] 42423- 6220 Sep, [facility] [id number] [place] [address] 63654- 1524 Jun, Type 2 diabetes mellitus with diabetic neuropathy, unspecified E11.40 and Type 2 diabetes mellitus with hyperglycemia E11.65 [facility] [id number] [place] [address] 01560- 1534 May, Diabetes mellitus E11.9 [facility] [id number] [place] [address] 03080- 1938 May, Diabetes mellitus E11.9 and Lumbago with sciatica, left side M54.42 [facility] [id number] 9880 Jan, Osteoarthritis of knees, bilateral 715.96 [facility] [id number] 8566 December, [facility] [id number] [place] [address] 609125- 3081 December, Knee pain, bilateral 719.46 [facility] [id number] [place] [address], [place] [address]- 7908 Nov, Knee pain, bilateral 719.46 [facility] [id number] [place] [address] 72060- 0199 Nov, [facility] [id number] [place] [address] 58108- 7264 Nov, [facility] [id number] [address]- 7675 Oct, [facility] [id number] [place] [address] 348886- 0152 Oct, [facility] [address] [address]- 8474 Aug, [facility] [address] [address]- 6535 Aug, [facility] [address] [address]- 0126 Jul, [facility] [id number] [address]- 8006 Jul, [facility] [address] [address]- 6836 Jun, [facility] [address] [address]- 1806 Jun, [facility] [place] [facility] [address] [id number] [place] [address]- 3909 15 May, 2014 [facility] [place] [facility] [address] [id number] [place] [address]- 4150 15 May, 2014 [facility] [place] [facility] [address] [id number] [place] [address]- 2599 15 Apr, 2014 [facility] [place] [facility] [address] [id number] [place] [address]- 8129 15 Apr, 2014 [facility] [place] [facility] [address] [id number] [place] [address]- 8386 Apr, [facility] [place] [facility] [address] [id number] [place] [address]- 0150 Apr, [facility] [place] [facility] [address] [id number] [place] [address]- 4413 Feb, [facility] [place] [facility] [address] [id number] [place] [address]- 1701 Feb, [facility] [place] [facility] [address] [id number] [place] [address]- 2284 December, [facility] [place] [facility] [address] [id number] [place] [address]- 6448 December, [facility] [place] [facility] [address] [id number] [place] [address]- 4931 December, [facility] [place] [facility] [address] [id number] [place] [address]- 7711 December, [facility] [place] [facility] [address] [id number] [place] [address]- 9302 Nov, [facility] [place] [facility] [address] [id number] [place] [address]- 6490 Nov, [facility] [place] [facility] [address] [id number] [place] [address]- 5385 Oct, [facility] [place] [facility] [address] [id number] [place] [address]- 2546 Oct, [facility] [address] [id number] [place] [address]- 3199 Aug, [facility] [place] [facility] [address] [id number] [place] [address]- 6970 Aug, [facility] [place] [facility] [address] [id number] [place] [address]- 4192 Jul, [facility] [place] [facility] [address] [id number] [place] [address]- 9873 Jul, [facility] [place] [facility] [address] [id number] [place] [address]- 6611 May, [facility] [place] [facility] [address] [id number] [place] [address]- 0787 Jan, [facility] [place] [facility] [address] [id number] [place] [address]- 4354 Jan, [facility] [place] [facility] [address] [id number] [place] [address]- 4682 December, [facility] [place] [facility] [address] [id number] [place] [address]- 5268 Nov, [facility] [place] [facility] [address] [id number] [place] [address]- 4769 Oct, [facility] [place] [facility] [address] [id number] [place] [address]- 6178 Oct, [facility] [place] [facility] [address] [id number] [place] [address]- 7545 14 Oct, 2012 [facility] [place] [facility] [address] [id number] [place] [address]- 8677 11 Oct, 2012 [facility] [place] [facility] [address] [id number] [place] [address]- 9569 07 Oct, 2012 [facility] [place] [facility] [address] [id number] [place] [address]- 2514 07 Oct, 2012 [facility] [place] [facility] [address] [id number] [place] [address]- 2546 07 Sep, 2012 [facility] [address] [id number] [place] [address]- 2953 Jul, [facility] [place] [facility] [address] [id number] [place] [address] 2546 Jul, [facility] [address] [id number] [place] [address]- 0426 Jul, [facility] [address] [id number] [place] [address]- 0425 Jun, [facility] [address] [id number] [place] [address]- 6158 Jun, [facility] [address] [id number] [place] [address]- 4155 Jun, [facility] [address] [id number] [place] [address]- 7798 Jun, [facility] [address] [id number] [place] [address]- 9641 Mar, [facility] [address] [id number] [place] [address]- 6499 Mar, [facility] [address] [id number] [place] [address]- 6634 Feb, [facility] [place] [facility] [address] [id number] [place] [address]- 9694 Feb, [facility] [address] [id number] [place] [address]- 1486 December, [facility] [place] [facility] [address] [id number] [place] [address]- 8276 December, [facility] [place] [facility] [address] [id number] [place] [address]- 2546 Nov, [facility] [place] [facility] [address] [id number] [place] [address]- 4906 Oct, [facility] [address] [address]- 5736 Oct, [facility] [address] [address]- 2276 Jul, [facility] [address] [address]- 1396 Sep, [facility] [id number] [place] [address] 61235- 8696 Jul, [facility] [address] [address]- 3161 Jan, [facility] [id number] [place] [address] 25575- 4679 Jun, [facility] [id number] [address]- 4796 Mar, [facility] [id number] [place] [address] 49182- 7436 Jan, [facility] [address] [address]- 8717 December, [facility] [address] [address]- 2167 Oct, [facility] [address] [address]- 8003 Sep, IMMUNIZATIONS No Known Immunizations SOCIAL HISTORY Never Assessed REASON FOR VISIT [facility] follow up-VIANNEY butler PLAN OF CARE VITAL SIGNS Height 67 in 2018-02-03 Weight 272.8 lbs 2018-02-03 Temperature 98.8 degrees Fahrenheit 2018-02-03 Heart Rate 69 bpm 2018-02-03 Respiratory Rate 22 2018-02-03 Oximetry 96 % 2018-02-03 BMI 42.72 kg/m2 2018-02-03 Blood pressure systolic 160 mmHg 2018-02-03 Blood pressure diastolic 60 mmHg 2018-02-03 MEDICATIONS Medication Instructions Dosage Frequency Start Date End Date Duration Status Lipitor 20 mg Orally Once a day 1 tablet 24h May, Active Neurontin 800 MG Orally Three times a day 1 capsule 8h 14 Feb, 2017 Active BD Pen Needle Ultrafine 29G X 12.7MM Inject 6h May, Active Aspirin 325 MG Orally Once a day 1 tablet 24h Active PredniSONE 20 mg Orally Once a day 2 tablets 24h Jan, Feb, 05 days Active Tessalon Perles 100 MG Orally Three times a day 1 capsule as needed 8h 5 days Active Levemir FlexTouch 100 UNIT/ML Subcutaneous Once a day 90 units 24h May, Active Guaifenesin 400 mg Orally 4 times a day 1 tablet as needed 6h Jan, Active Metformin HCl 1000 MG Orally Twice a day 1 tablet with meals 12h May, Active ProAir HFA 108 (90 Base) MCG/ACT Inhalation every 6 hrs 2 puffs as needed 6h Oct, Active Oxycodone-Acetaminophen 10-325 MG Orally every 6 hrs 1 tablet as needed 6h Jan, 28 days Active Lisinopril 40 mg Orally Once a day 1 tablet 24h May, Active Humalog KwikPen 100 UNIT/ML Subcutaneous 3 times a day 30 units 8h December, Active DuoNeb Active Doxepin HCl 50 mg Orally Once a day, at night 2 capsules Nov, Active Metoprolol Tartrate 100 mg Orally Twice a day 1 tablet with food 12h December Active RESULTS No Results PROCEDURES Procedure Date Ordered Result Body Site [facility] VISIT ESTABLISHED PATIENT February 03, 2018 INSTRUCTIONS MEDICATIONS ADMINISTERED No Known Medications MEDICAL (GENERAL) HISTORY Type Description Date Medical History type II diabetes Medical History hyperlipidemia Medical History hypertension Medical History chronic pain back/knees Surgical History right knee arthroscopy 1994 Surgical History heart cath, 2010--clear Surgical History left knee arthroscopy 2010 Surgical History back surgery with rods 12/2016 Hospitalization History surgeries Hospitalization History [facility], [place], operated by [facility]- Back/Left Side Pain 06/06/2017 Hospitalization History [facility], [place], operated by [facility]- Congested, cough and SOB 11/07/2017
[2018-04-20 15:53] VITALS: BP 184/86
--- OUTSIDE RECORDS SUMMARY | 2018-04-20 15:53 | XMS REPORT ---
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 Name Role Phone SLIME NISHI Unavailable PROBLEMS Type Condition ICD9-CM Code SOC58-KR Code Onset Dates Condition Status SNOMED Code Problem Type 2 diabetes mellitus without complications E11.9 Active 912503409 Problem Slow transit constipation K59.01 Active 99302340 Problem Other chronic pain G89.29 Active 09636288 Problem Essential (primary) hypertension I10 Active 28500051 Problem Chronic kidney disease, stage III (moderate) N18.3 Active 021132791 Problem Diabetic mononeuropathy associated with type 2 diabetes mellitus E11.41 Active 738894681 Problem Neuropathy G62.9 Active 921912212 Problem Chronic fatigue R53.82 Active 53428615 Problem Mood disorder F39 Active 23098207 Problem Type 2 diabetes mellitus with hyperglycemia E11.65 Active 695541307 Problem Controlled type 2 diabetes mellitus without complication, without long -term current use of insulin E11.9 Active 822511080 Problem Type 2 diabetes mellitus with diabetic neuropathy, unspecified E11.40 Active 24797010 Problem Lumbago with sciatica, left side M54.42 Active 210928127 Problem Diabetes type 2, controlled E11.9 Active 20009307 Problem 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 Active 047411549 ALLERGIES No Information ENCOUNTERS Encounter Location Date Diagnosis [facility] [address] [facility] [id number] [address] Apr, [facility] [address] [address] Mar, Chronic kidney disease, stage III (moderate) N18.3 ; Essential (primary) hypertension I10 ; Type 2 diabetes mellitus without complication, unspecified whether usp insulin use E11.9 ; Simple renal cyst N28.1 and Pain R52 [facility] [id number] [place] [address] 88670- 5698 Mar, Seborrheic keratoses L82.1 [facility] [id number] [place] [address] 72517- 3738 Mar, Type 2 diabetes mellitus with hyperglycemia E11.65 [facility] [id number] [place] [address] 46495- 4706 Feb, Seborrheic keratoses L82.1 and Type 2 diabetes mellitus with diabetic neuropathy, unspecified E11.40 [facility] [id number] [place] [address] 69190- 2442 Feb, Type 2 diabetes mellitus with diabetic neuropathy, unspecified E11.40 ; Renal insufficiency N28.9 and Chronic fatigue R53.82 [facility] [id number] [place] [address] 10742- 4832 Jan, Pneumonia of both lower lobes due to infectious organism J18.1 and Mood disorder F39 [facility] [id number] [place] [address] 73203- 2684 Jan, BMI 40.0-44.9, adult Z68.41 [facility] [id number] [place] [address] 51327- 1749 Jan, [facility] [id number] [place] [address] 44353- 5940 Jan, [facility] [id number] [place] [address] 30103 -7014 Jan, Wheezes R06.2 ; Diabetes type 2, controlled E11.9 and Pneumonia of right lower lobe due to infectious organism J18.1 [facility] [id number] [place] [address] 81497- 0583 Jan, Renal insufficiency N28.9 [facility] [id number] [place] [address] 21179- 2171 18 Jan, 2018 Seborrheic keratoses L82.1 [facility] [address] [place] [address] 2848 Jan, [facility] [id number] [place] [address] 06026- 1439 Jan, [facility] [address] [id number] [address] 6[address] Jan, Renal insufficiency N28.9 [facility] [id number] [place] [address] 59585- 2574 Jan, [facility] [id number] [place] [address] 73092- 2937 Jan, Diabetes type 2, controlled E11.9 ; Mood disorder F39 and BMI 40.0-44.9, adult Z68.41 [facility] [id number] [place] [address] 27565- 4410 Jan, BMI 40.0-44.9, adult Z68.41 [facility] [id number] [place] [address] 13861- 4975 December, [facility] [id number] [place] [address] 16124- 5058 December, [facility] [id number] [place] [address] 35138- 1147 December, Seborrheic keratoses L82.1 [facility] [address], [place] [address] 1252 December, Seborrheic keratoses L82.1 [facility] [address], [place] [address] 9913 December, [facility] [id number] [place] [address] 55480- 0726 December, [facility] [address], [place] [address] 6512 December, BMI 40.0-44.9, adult Z68.41 [facility] [id number] [place] [address] 39154- 6770 December, [facility] [id number] [place] [address] 37034- 2394 December, [facility] [id number] [place] [address] 60843- 6435 Nov, [facility] [id number] [place] [address] 87095- 0116 Nov, [facility] [address] 27680- 4458 Nov, Seborrheic keratoses L82.1 [facility] [address] 39920- 2018 Nov, Renal insufficiency N28.9 [facility] [id number] [place] [address] 49735- 3361 Nov, [facility] [address] 72918- 0932 Nov, [facility] [id number] [place] [address] 70711- 1454 Nov, [facility] [id number] [place] [address] 70660- 0211 Nov, Type 2 diabetes mellitus with diabetic neuropathy, unspecified E11.40 ; Other chronic pain G89.29 ; Bronchitis J40 ; Renal cyst N28.1 ; Pain of left foot M79.672 and Pain in right foot M79.671 [facility] [id number] [place] [address] 98131- 2323 Oct, Type 2 diabetes mellitus without complications E11.9 [facility] [id number] [place] [address] 80409- 5161 Oct, SOB (shortness of breath) R06.02 [facility] [id number] [place] [address] 84489- 0874 Oct, SOB (shortness of breath) R06.02 [facility] [address], [place] [address] 2442 Sep, Type 2 diabetes mellitus without complications E11.9 [facility] [address] [place] [address] 53926- 0695 Sep, Left flank pain R10.9 [facility] [id number] [place] [address] 29160- 1795 Sep, BMI 40.0-44.9, adult Z68.41 ; Left flank pain R10.9 and Seborrheic keratoses L82.1 [facility] [address] [place] [address] 30308- 9675 Aug, Type 2 diabetes mellitus without complications E11.9 [facility] [address] [place] [address] 88902- 6966 Jul, Type 2 diabetes mellitus without complications E11.9 and Abdominal pain, left lower quadrant R10.32 [facility] [address] [id number] [address] Jun, [facility] [id number] [place] [address] 15892- 4559 Jun, Type 2 diabetes mellitus without complications E11.9 [facility] [address], [place] [address] 4470 Jun, Controlled type 2 diabetes mellitus without complication, without long-term current use of insulin E11.9 and Seborrheic keratoses L82.1 [facility] [address], [place] [address] May, Acute back pain M54.9 [facility] [id number] [place] [address] 00139- 5428 13 May, 2017 Type 2 diabetes mellitus without complications E11.9 [facility] [address], [place] [address]- 5400 28 Apr, 2017 Diabetes type 2, controlled E11.9 ; Lumbago with sciatica, left side M54.42 and Diabetic mononeuropathy associated with type 2 diabetes mellitus E11.41 [facility] [id number] [place] [address] 02368- 9742 Apr, Type 2 diabetes mellitus without complications E11.9 [facility] [id number] [place] [address] 22894- 7323 Apr, [facility] [id number] [place] [address] 05577- 2258 Mar, Type 2 diabetes mellitus without complications E11.9 [facility] [id number] [place] [address] 65720- 2354 Feb, Controlled type 2 diabetes mellitus without complication, without long-term current use of insulin E11.9 ; Neuropathy G62.9 and Onychomycosis B35.1 [facility] [id number] [place] [address] 76155- 3515 Jan, Type 2 diabetes mellitus with diabetic neuropathy, unspecified E11.40 [facility] [id number] [place] [address] 31632- 7013 Jan, Type 2 diabetes mellitus with diabetic neuropathy, unspecified E11.40 [facility] [id number] [place] [address] 92592- 2209 December, Type 2 diabetes mellitus without complications E11.9 [facility] [id number] [place] [address] 56398- 0094 December, Slow transit constipation K59.01 and Pain in right hip M25.551 [facility] [id number] [place] [address] 48598- 4902 Nov, Type 2 diabetes mellitus without complications E11.9 [facility] [id number] [place] [address] 24213- 3645 Oct, Lumbago with sciatica, left side M54.42 and Other chronic pain G89.29 [facility] [id number] [place] [address] 07339- 2838 Sep, Diabetes mellitus E11.9 ; Lumbago with sciatica, left side M54.42 and Type 2 diabetes mellitus without complications E11.9 [facility] [id number] [place] [address] 19383- 2188 Aug, Type 2 diabetes mellitus without complications E11.9 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 [facility] [facility] [id number] [place] [address] [id number] Aug, Dental examination Z01.20 [facility] [place] [facility] [id number] [place] [address] [id number] Aug, Dental examination Z01.20 [facility] [id number] [place] [address] 85724 -9319 Aug, Dental abscess K04.7 [facility] [id number] [place] [address] 10563- 7897 Jul, Type 2 diabetes mellitus with hyperglycemia E11.65 and 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 [facility] [id number] [place] [address] 69219- 0976 Jul, [facility] [id number] [place] [address] 52057- 0508 Jul, Type 2 diabetes mellitus with diabetic neuropathy, unspecified E11.40 [facility] [id number] [place] [address] 48674- 1034 Jun, Type 2 diabetes mellitus with diabetic neuropathy, unspecified E11.40 and Lumbago with sciatica, left side M54.42 [facility] [id number] [place] [address] 84199- 2309 May, Controlled type 2 diabetes mellitus without complication, without long-term current use of insulin E11.9 [facility] [id number] [place] [address] 13563- 3184 08 Apr, 2016 Controlled type 2 diabetes mellitus without complication, without long-term current use of insulin E11.9 and Lumbar neuritis M54.16 [facility] [id number] [place] [address] 37651- 2018 Mar, [facility] [id number] [place] [address] 42789- 7544 Mar, Other chronic pain G89.29 ; Pain in left knee M25.562 ; Sciatica, left side M54.32 ; Pain in left hip M25.552 ; Type 2 diabetes mellitus with hyperglycemia E11.65 ; 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 and Mood disorder F39 [facility] [id number] [place] [address] 18668- 2215 December, Diabetes type 2, controlled E11.9 [facility] [id number] [place] [address] 92282- 3908 December, Diabetes type 2, controlled E11.9 [facility] [id number] [place] [address] 04649- 2435 Oct, Shoulder pain, right M25.511 and Knee pain, right M25.561 [facility] [id number] [place] [address] 24276- 2765 Oct, Knee pain, left M25.562 [facility] [id number] [place] [address] 74654- 3781 Sep, Diabetes mellitus E11.9 and Knee pain M25.569 [facility] [id number] [place] [address] 94498- 7055 Sep, [facility] [id number] [place] [address] 27158- 1874 Jun, Type 2 diabetes mellitus with diabetic neuropathy, unspecified E11.40 and Type 2 diabetes mellitus with hyperglycemia E11.65 [facility] [id number] [place] [address] 32297- 4735 May, Diabetes mellitus E11.9 [facility] [id number] [place] [address] 90941- 0013 May, Diabetes mellitus E11.9 and Lumbago with sciatica, left side M54.42 [facility] [id number] [address]606 Jan, Osteoarthritis of knees, bilateral 715.96 [facility] [id number] 0236 December, [facility] [id number] [place] [address] 960034- 0979 December, Knee pain, bilateral 719.46 [facility] [id number] [place] [address], [place] [address]- 2326 Nov, Knee pain, bilateral 719.46 [facility] [id number] [place] [address] 98774- 3904 Nov, [facility] [id number] [place] [address] 00157- 1071 Nov, [facility] [id number] [address]- 8439 Oct, [facility] [id number] [place] [address] 175438- 4910 Oct, [facility] [address] 1326 Aug, [facility] [address], [place] [address]- 3866 Aug, [facility] [address], [place] [address]- 5646 Jul, [facility] [id number] [address]- 6696 Jul, [facility] [address], [place] [address]- 2146 Jun, [facility] [address], [place] [address]- 9616 Jun, [facility] [place] [facility] [address] [id number] [place] [address]- 8700 15 May, 2014 [facility] [place] [facility] [address] [id number] [place] [address]- 7931 15 May, 2014 [facility] [place] [facility] [address] [id number] [place] [address]- 8405 15 Apr, 2014 [facility] [place] [facility] [address] [id number] [place] [address]- 9362 15 Apr, 2014 [facility] [place] [facility] [address] [id number] [place] [address]- 4615 08 Apr, 2014 [facility] [place] [facility] [address] [id number] [place] [address]- 5385 Apr, [facility] [place] [facility] [address] [id number] [place] [address]- 9920 Feb, [facility] [place] [facility] [address] [id number] [place] [address]- 2903 Feb, [facility] [place] [facility] [address] [id number] [place] [address]- 3679 December, [facility] [place] [facility] [address] [id number] [place] [address]- 6799 December, [facility] [place] [facility] [address] [id number] [place] [address]- 9051 December, [facility] [place] [facility] [address] [id number] [place] [address]- 7015 December, [facility] [place] [facility] [address] [id number] [place] [address]- 8512 Nov, [facility] [place] [facility] [address] [id number] [place] [address]- 6414 Nov, [facility] [place] [facility] [address] [id number] [place] [address]- 9114 Oct, [facility] [place] [facility] [address] [id number] [place] [address]- 5796 14 Oct, 2013 [facility] [address] [id number] [place] [address]- 5217 Aug, [facility] [place] [facility] [address] [id number] [place] [address]- 5856 Aug, [facility] [place] [facility] [address] [id number] [place] [address]- 3134 Jul, [facility] [place] [facility] [address] [id number] [place] [address]- 4521 Jul, [facility] [place] [facility] [address] [id number] [place] [address]- 0818 May, [facility] [place] [facility] [address] [id number] [place] [address]- 4833 Jan, [facility] [place] [facility] [address] [id number] [place] [address]- 3575 Jan, [facility] [place] [facility] [address] [id number] [place] [address]- 3679 December, [facility] [place] [facility] [address] [id number] [place] [address]- 0804 Nov, [facility] [place] [facility] [address] [id number] [place] [address]- 6506 Oct, [facility] [place] [facility] [address] [id number], [place] [address]- 2275 19 Oct, 2012 [facility] [place] [facility] [address] [id number], [place] [address]- 7137 14 Oct, 2012 [facility] [place] [facility] [address] [id number] [place] [address]- 3722 11 Oct, 2012 [facility] [place] [facility] [address] [id number] [place] [address]- 4366 07 Oct, 2012 [facility] [place] [facility] [address] [id number] [place] [address]- 2546 07 Oct, 2012 [facility] [place] [facility] [address] [id number] [place] [address]- 2546 07 Sep, 2012 [facility] [address] [id number] [place] [address]- 5562 Jul, [facility] [address] [id number] [place] [address] 2546 Jul, [facility] [address] [id number] [place] [address]- 4676 Jul, [facility] [address] [id number] [place] [address]- 1161 Jun, [facility] [address] [id number] [place] [address]- 4674 Jun, [facility] [address] [id number] [place] [address]- 7881 Jun, [facility] [address] [id number] [place] [address]- 3987 Jun, [facility] [address] [id number] [place] [address]- 3983 Mar, [facility] [address] [id number] [place] [address]- 5109 Mar, [facility] [address] [id number] [place] [address]- 8350 Feb, [facility] [address] [id number] [place] [address]- 4521 Feb, [facility] [address] [id number] [place] [address]- 6586 December, [facility] [place] [facility] [address] [id number] [place] [address]- 7536 December, [facility] [address] [id number] [place] [address]- 2546 Nov, [facility] [address] [id number] [place] [address]- 0446 Oct, [facility] [address] [id number] [address]- 7651 Oct, [facility] [address], [place] [address]- 7402 Jul, [facility] [id number] 5229 Sep, [facility] [address], [place] [address]- 6460 Jul, [facility] [address], [place] [address]- 9113 Jan, [facility] [address], [place] [address]- 0470 Jun, [facility] [address] 7417 Mar, [facility] [address], [place] [address]- 9014 Jan, [facility] [address], [place] [address]- 7239 December, [facility] [id number] [address]- 3192 Oct, [facility] [id number], [place] [address]- 1001 Sep, IMMUNIZATIONS No Known Immunizations SOCIAL HISTORY Never Assessed REASON FOR VISIT BP Reduction Challenge BP F/U PLAN OF CARE VITAL SIGNS Height 67 in 2018-01-31 Weight 274.1 lbs 2018-01-31 Oximetry 98 % 2018-01-31 BMI 42.93 kg/m2 2018-01-31 Blood pressure systolic 138 mmHg 2018-01-31 Blood pressure diastolic 74 mmHg 2018-01-31 MEDICATIONS Unknown Medications RESULTS No Results PROCEDURES [...] rods 12/2016 Hospitalization History surgeries Hospitalization History [facility] ED- Back/Left Side Pain 06/06/2017 Hospitalization History [facility] ED- Congested, cough and SOB 11/07/2017
--- OUTSIDE RECORDS SUMMARY | 2018-04-20 15:53 | XMS REPORT ---
Author Author NISHI PALENCIA Organization [facility] Address [address] [place] [address] Care Team Providers Care Bridge Teacher Name Role Phone SLIME NISHI Unavailable PROBLEMS Type Condition ICD9-CM Code [id number] Code Onset Dates Condition Status SNOMED Code Problem Type 2 diabetes mellitus without complications E11.9 Active 277189716 Problem Slow transit constipation K59.01 Active 84191394 Problem Other chronic pain G89.29 Active 12580837 Problem Essential (primary) hypertension I10 Active 94065808 Problem Chronic kidney disease, stage III (moderate) N18.3 Active 744769486 Problem Diabetic mononeuropathy associated with type 2 diabetes mellitus E11.41 Active 508112110 Problem Neuropathy G62.9 Active 052117991 Problem Chronic fatigue R53.82 Active 72275136 Problem Mood disorder F39 Active 37729573 Problem Type 2 diabetes mellitus with hyperglycemia E11.65 Active 451234520 Problem Controlled type 2 diabetes mellitus without complication, without long -term current use of insulin E11.9 Active 767258764 Problem Type 2 diabetes mellitus with diabetic neuropathy, unspecified E11.40 Active 73173939 Problem Lumbago with sciatica, left side M54.42 Active 157716183 Problem Diabetes type 2, controlled E11.9 Active 65321077 Problem FPC 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 Active [id number] ALLERGIES No Information ENCOUNTERS Encounter Location Date Diagnosis [facility] [address] [facility] [id number] [address] Apr, [facility] [address], [place] [address] Mar, Chronic kidney disease, stage III (moderate) N18.3 ; Essential (primary) hypertension I10 ; Type 2 diabetes mellitus without complication, unspecified whether penitentiary insulin use E11.9 ; Simple renal cyst N28.[address] [facility] [id number] [place] [address] 76979- 9919 Mar, Seborrheic keratoses L82.1 [facility] [id number] [place] [address] 65066- 6563 Mar, Type 2 diabetes mellitus with hyperglycemia E11.65 [facility] [id number] [place] [address] 45198- 4949 Feb, Seborrheic keratoses L82.1 and Type 2 diabetes mellitus with diabetic neuropathy, unspecified E11.40 [facility] [id number] [place] [address] 58752- 5039 Feb, Type 2 diabetes mellitus with diabetic neuropathy, unspecified E11.40 ; Renal insufficiency N28.9 and Chronic fatigue R53.82 [facility] [id number] [place] [address] 07726- 8431 Jan, Pneumonia of both lower lobes due to infectious organism J18.1 and Mood disorder F39 [facility] [id number] [place] [address] 86350- 9875 Jan, BMI 40.0-44.9, adult Z68.41 [facility] [id number] [place] [address] 67421- 6418 Jan, [facility] [id number] [place] [address] 87580- 5547 Jan, [facility] [id number] [place] [address] 79705 -5484 Jan, Wheezes R06.2 ; Diabetes type 2, controlled E11.9 and Pneumonia of right lower lobe due to infectious organism J18.1 [facility] [id number] [place] [address] 16883- 3637 Jan, Renal insufficiency N28.9 [facility] [id number] [place] [address] 67470- 9644 18 Jan, 2018 Seborrheic keratoses L82.1 [facility] [address] [place] [address] 120[address] Jan, [facility] [id number] [place] [address] 65979- 7842 Jan, [facility] [address] [id number] [address] 7486 Jan, Renal insufficiency N28.9 [facility] [id number] [place] [address] 87403- 6700 Jan, [facility] [id number] [place] [address] 75234- 4907 Jan, Diabetes type 2, controlled E11.9 ; Mood disorder F39 and BMI 40.0-44.9, adult Z68.41 [facility] [id number] [place] [address] 80962- 3309 Jan, BMI 40.0-44.9, adult Z68.41 [facility] [id number] [place] [address] 15381- 4084 December, [facility] [id number] [place] [address] 02029- 9407 December, [facility] [id number] [place] [address] 37594- 2209 December, Seborrheic keratoses L82.1 [facility] [address], [place] [address] 8104 December, Seborrheic keratoses L82.1 [facility] [address], [place] [address] 0838 December, [facility] [id number] [place] [address] 84473- 9477 December, [facility] [address], [place] [address]- 2165 December, BMI 40.0-44.9, adult Z68.41 [facility] [id number] [place] [address] 51998- 9947 December, [facility] [id number] [place] [address] 08924- 9203 December, [facility] [id number] [place] [address] 15463- 4610 Nov, [facility] [id number] [place] [address] 33362- 2193 Nov, [facility] [address] 39867- 7760 Nov, Seborrheic keratoses L82.1 [facility] [address] 96377- 3375 Nov, Renal insufficiency N28.9 [facility] [id number] [place] [address] 89706- 3346 Nov, [facility] [address] 58160- 5870 Nov, [facility] [id number] [place] [address] 60926- 7645 Nov, [facility] [id number] [place] [address] 94802- 9601 Nov, Type 2 diabetes mellitus with diabetic neuropathy, unspecified E11.40 ; Other chronic pain G89.29 ; Bronchitis J40 ; Renal cyst N28.1 ; Pain of left foot M79.672 and Pain in right foot M79.671 [facility] [id number] [place] [address] 31171- 1165 Oct, Type 2 diabetes mellitus without complications E11.9 [facility] [id number] [place] [address] 42618- 9940 Oct, SOB (shortness of breath) R06.02 [facility] [id number] [place] [address] 29931- 9824 Oct, SOB (shortness of breath) R06.02 [facility] [address], [place] [address]- 0535 Sep, Type 2 diabetes mellitus without complications E11.9 [facility] [address] [place] [address] 51934- 1206 Sep, Left flank pain R10.9 [facility] [id number] [place] [address] 96876- 1161 Sep, BMI 40.0-44.9, adult Z68.41 ; Left flank pain R10.9 and Seborrheic keratoses L82.1 [facility] [address] [place] [address] 76314- 6019 Aug, Type 2 diabetes mellitus without complications E11.9 [place] [address] [place] [address] 51305- 1355 Jul, Type 2 diabetes mellitus without complications E11.9 and Abdominal pain, left lower quadrant R10.32 [facility] [address] [id number] [address] Jun, [facility] [id number] [place] [address] 55473- 1034 Jun, Type 2 diabetes mellitus without complications E11.9 [facility] [address], [place] [address]- 4728 Jun, Controlled type 2 diabetes mellitus without complication, without long-term current use of insulin E11.9 and Seborrheic keratoses L82.1 [facility] [address], [place] [address] May, Acute back pain M54.9 [facility] [id number] [place] [address] 27151- 2314 13 May, 2017 Type 2 diabetes mellitus without complications E11.9 [facility] [address], [place] [address]- 5360 28 Apr, 2017 Diabetes type 2, controlled E11.9 ; Lumbago with sciatica, left side M54.42 and Diabetic mononeuropathy associated with type 2 diabetes mellitus E11.41 [place] [place] [id number] [place] [address] 38253- 6345 Apr, Type 2 diabetes mellitus without complications E11.9 [place] [place] [id number] [place] [address] 77732- 2120 Apr, [facility] [id number] [place] [address] 08494- 9732 Mar, Type 2 diabetes mellitus without complications E11.9 [facility] [id number] [place] [address] 74078- 6749 Feb, Controlled type 2 diabetes mellitus without complication, without long-term current use of insulin E11.9 ; Neuropathy G62.9 and Onychomycosis B35.1 [place] [place] [id number] [place] [address] 11658- 6050 Jan, Type 2 diabetes mellitus with diabetic neuropathy, unspecified E11.40 [facility] [id number] [place] [address] 25685- 3957 Jan, Type 2 diabetes mellitus with diabetic neuropathy, unspecified E11.40 [facility] [id number] [place] [address] 86260- 1761 December, Type 2 diabetes mellitus without complications E11.9 [place] [place] [id number] [place] [address] 63684- 8433 December, Slow transit constipation K59.01 and Pain in right hip M25.551 [place] [id number] [place] [address] 25783- 4111 Nov, Type 2 diabetes mellitus without complications E11.9 [place] [place] [id number] [place] [address] 45893- 8052 Oct, Lumbago with sciatica, left side M54.42 and Other chronic pain G89.29 [facility] [id number] [place] [address] 06134- 7890 Sep, Diabetes mellitus E11.9 ; Lumbago with sciatica, left side M54.42 and Type 2 diabetes mellitus without complications E11.9 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 [id number] [place] [address] 67327- 8573 Jul, Type 2 diabetes mellitus with hyperglycemia E11.65 and FPC 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 [facility] [id number] [place] [address] 99634- 4032 Jul, [place] [id number] [place] [address] 52352- 2275 Jul, Type 2 diabetes mellitus with diabetic neuropathy, unspecified E11.40 [facility] [id number] [place] [address] 94956- 7890 Jun, Type 2 diabetes mellitus with diabetic neuropathy, unspecified E11.40 and Lumbago with sciatica, left side M54.42 [facility] [id number] [place] [address] 82258- 1521 May, Controlled type 2 diabetes mellitus without complication, without long-term current use of insulin E11.9 [facility] [id number] [place] [address] 15069- 2336 08 Apr, 2016 Controlled type 2 diabetes mellitus without complication, without long-term current use of insulin E11.9 and Lumbar neuritis M54.16 [facility] [place] [id number] [place] [address] 71021- 8904 Mar, [facility] [id number] [place] [address] 02733- 2643 Mar, Other chronic pain G89.29 ; Pain in left knee M25.562 ; Sciatica, left side M54.32 ; Pain in left hip M25.552 ; Type 2 diabetes mellitus with hyperglycemia E11.65 ; 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 and Mood disorder F39 [place] [id number] [place] [address] 85238- 5047 December, Diabetes type 2, controlled E11.9 [place] [place] [id number] [place] [address] 17907- 7159 December, Diabetes type 2, controlled E11.9 [facility] [place] [id number] [place] [address] 98216- 7179 Oct, Shoulder pain, right M25.511 and Knee pain, right M25.561 [facility] [id number] [place] [address] 09071- 1874 Oct, Knee pain, left M25.562 [facility] [id number] [place] [address] 97817- 0399 Sep, Diabetes mellitus E11.9 and Knee pain M25.569 [place] [id number] [place] [address] 87672- 6009 Sep, [facility] [id number] [place] [address] 96297- 4124 Jun, Type 2 diabetes mellitus with diabetic neuropathy, unspecified E11.40 and Type 2 diabetes mellitus with hyperglycemia E11.65 [place] [place] [id number] [place] [address] 08447- 4581 May, Diabetes mellitus E11.9 [place] [place] [id number] [place] [address] 62341- 2003 May, Diabetes mellitus E11.9 and Lumbago with sciatica, left side M54.42 [facility] [id number] 6564 Jan, Osteoarthritis of knees, bilateral 715.96 [facility] [id number] 1526 December, [facility] [id number] [place] [address] 089291- 1743 December, Knee pain, bilateral 719.46 [facility] [id number] [place] [address], [place] [address]- 3183 Nov, Knee pain, bilateral 719.46 [facility] [id number] [place] [address] 70885- 6940 Nov, [facility] [id number] [place] [address] 23926- 4136 Nov, [facility] [id number] [address]- 3616 Oct, [facility] [id number] [place] [address] 636939- 8101 Oct, [facility] [address] 9522 Aug, [facility] [address], [place] [address]- 8596 Aug, [facility] [address], [place] [address]- 8687 Jul, [facility] [id number] [address]- 2856 Jul, [facility] [address], [place] [address]- 4866 Jun, [facility] [address], [place] [address]- 2356 Jun, [facility] [place] [facility] [address] [id number] [place] [address]- 5708 15 May, 2014 [facility] [place] [facility] [address] [id number] [place] [address]- 9271 15 May, 2014 [facility] [place] [facility] [address] [id number] [place] [address]- 0367 15 Apr, 2014 [facility] [place] [facility] [address] [id number] [place] [address]- 5082 15 Apr, 2014 [facility] [place] [facility] [address] [id number] [place] [address]- 9034 08 Apr, 2014 [facility] [place] [facility] [address] [id number] [place] [address]- 6260 Apr, [facility] [place] [facility] [address] [id number] [place] [address]- 2932 Feb, [facility] [place] [facility] [address] [id number] [place] [address]- 8509 Feb, [facility] [place] [facility] [address] [id number] [place] [address]- 0622 December, [facility] [place] [facility] [address] [id number] [place] [address]- 0084 December, [facility] [place] [facility] [address] [id number] [place] [address]- 5289 December, [facility] [place] [facility] [address] [id number] [place] [address]- 4028 December, [facility] [place] [facility] [address] [id number] [place] [address]- 1828 Nov, [facility] [place] [facility] [address] [id number] [place] [address]- 1386 Nov, [facility] [place] [facility] [address] [id number] [place] [address]- 6712 Oct, [facility] [place] [facility] [address] [id number] [place] [address]- 2786 14 Oct, 2013 [facility] [address] [id number] [place] [address]- 8497 Aug, [facility] [place] [facility] [address] [id number] [place] [address]- 5476 Aug, [facility] [place] [facility] [address] [id number] [place] [address]- 8680 Jul, [facility] [place] [facility] [address] [id number] [place] [address]- 1973 Jul, [facility] [place] [facility] [address] [id number] [place] [address]- 4114 May, [facility] [place] [facility] [address] [id number] [place] [address]- 9417 Jan, [facility] [place] [facility] [address] [id number] [place] [address]- 1776 Jan, [facility] [place] [facility] [address] [id number] [place] [address]- 6111 December, [facility] [place] [facility] [address] [id number] [place] [address]- 5728 Nov, [facility] [place] [facility] [address] [id number] [place] [address]- 4688 Oct, [facility] [place] [facility] [address] [id number], [place] [address]- 3532 19 Oct, 2012 [facility] [place] [facility] [address] [id number], [place] [address]- 0031 14 Oct, 2012 [facility] [place] [facility] [address] [id number] [place] [address]- 7927 11 Oct, 2012 [facility] [place] [facility] [address] [id number] [place] [address]- 1756 07 Oct, 2012 [facility] [place] [facility] [address] [id number] [place] [address]- 2546 07 Oct, 2012 [facility] [place] [facility] [address] [id number] [place] [address]- 2546 07 Sep, 2012 [facility] [address] [id number] [place] [address]- 9063 Jul, [facility] [address] [id number] [place] [address] 2546 Jul, [facility] [address] [id number] [place] [address]- 6626 Jul, [facility] [address] [id number] [place] [address]- 0050 Jun, [facility] [address] [id number] [place] [address]- 5892 Jun, [facility] [address] [id number] [place] [address]- 4949 Jun, [facility] [address] [id number] [place] [address]- 1049 Jun, [facility] [address] [id number] [place] [address]- 5405 Mar, [facility] [address] [id number] [place] [address]- 7986 Mar, [facility] [address] [id number] [place] [address]- 6689 Feb, [facility] [address] [id number] [place] [address]- 3302 Feb, [facility] [address] [id number] [place] [address]- 6786 December, [facility] [place] [facility] [address] [id number] [place] [address]- 9776 December, [facility] [address] [id number] [place] [address]- 2546 Nov, [facility] [address] [id number] [place] [address]- 1806 Oct, [facility] [id number] [address]- 1418 Oct, [facility] [address], [place] [address]- 8734 Jul, [facility] [address], [place] [address]- 8391 Sep, [facility] [address], [place] [address]- 7946 Jul, [facility] [address], [place] [address]- 0081 Jan, [facility] [address], [place] [address]- 0182 Jun, [facility] [address], [place] [address]- 2120 Mar, [facility] [address], [place] [address]- 1842 Jan, [facility] [id number] [address] December, [facility] [address] [id number] [address] Oct, [facility] [address] [id number], [place] [address] Sep, IMMUNIZATIONS No Known Immunizations SOCIAL HISTORY Never Assessed REASON FOR VISIT Blood pressure check [facility] PLAN OF CARE VITAL SIGNS Height 67 in 2018-01-28 Blood pressure systolic 134 mmHg 2018-01-28 Blood pressure diastolic 74 mmHg 2018-01-28 MEDICATIONS Unknown Medications RESULTS No Results PROCEDURES [...] rods 12/2016 Hospitalization History surgeries Hospitalization History [facility] ED- Back/Left Side Pain 06/06/2017 Hospitalization History [facility] ED- Congested, cough and SOB 11/07/2017
--- OUTSIDE RECORDS SUMMARY | 2018-04-20 15:54 | XMS REPORT ---
Author Author ADDI STEEL [facility] IN [facility] Address [address] [place] [address] Care Team Providers Care Dog Handler Or Trainer Name Role Phone ADDI STEEL Unavailable PROBLEMS Type Condition ICD9-CM Code STD68-GL Code Onset Dates Condition Status SNOMED Code Problem Type 2 diabetes mellitus without complications E11.9 Active 325504782 Problem Slow transit constipation K59.01 Active 14012106 Problem Other chronic pain G89.29 Active 96816901 Problem Essential (primary) hypertension I10 Active 17387697 Problem Chronic kidney disease, stage III (moderate) N18.3 Active 952554933 Problem Diabetic mononeuropathy associated with type 2 diabetes mellitus E11.41 Active 684278162 Problem Neuropathy G62.9 Active 903551548 Problem Chronic fatigue R53.82 Active 58269708 Problem Mood disorder F39 Active 61298263 Problem Type 2 diabetes mellitus with hyperglycemia E11.65 Active 251086926 Problem Controlled type 2 diabetes mellitus without complication, without long -term current use of insulin E11.9 Active 489486757 Problem Type 2 diabetes mellitus with diabetic neuropathy, unspecified E11.40 Active 66369447 Problem Lumbago with sciatica, left side M54.42 Active 455735891 Problem Diabetes type 2, controlled E11.9 Active 39148717 Problem custodial 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 Active 490061019 ALLERGIES No Known Allergies ENCOUNTERS Encounter Location Date Diagnosis [facility] [address] [facility] [id number] [address] Apr, [facility] [address] [facility] [id number], [place] [address] Mar, Chronic kidney disease, stage III (moderate) N18.3 ; Essential (primary) hypertension I10 ; Type 2 diabetes mellitus without complication, unspecified 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.9 ; Simple renal cyst N28.1 and Pain R52 [facility] [address], [place] [address] Mar, Seborrheic keratoses L82.1 [place] [address] [place] [id number] [place] [address] 46497- 7270 Mar, Type 2 diabetes mellitus with hyperglycemia E11.65 [facility] [address] [id number] [place] [address] 09024- 4298 Feb, Seborrheic keratoses L82.1 and Type 2 diabetes mellitus with diabetic neuropathy, unspecified E11.40 [facility] [address] [id number] [place] [address] 13833- 9401 Feb, Type 2 diabetes mellitus with diabetic neuropathy, unspecified E11.40 ; Renal insufficiency N28.9 and Chronic fatigue R53.82 [place] [address] [id number] [place] [address] 03649- 2030 Jan, Pneumonia of both lower lobes due to infectious organism J18.1 and Mood disorder F39 [place] [address] [place] [id number] [place] [address] 78319- 0045 Jan, BMI 40.0-44.9, adult Z68.41 [place] [address] [id number] [place] [address] 60970- 7101 Jan, [place] [address] [id number] [place] [address] 21673- 4708 Jan, [facility] [id number] [place] [address] 45174 -4245 Jan, Wheezes R06.2 ; Diabetes type 2, controlled E11.9 and Pneumonia of right lower lobe due to infectious organism J18.1 [place] [address] [id number] [place] [address] 30287- 0075 Jan, Renal insufficiency N28.9 [facility] [address] [id number] [address] 1159 Jan, Seborrheic keratoses L82.1 [facility] [address], [place] [address] 5185 Jan, [facility] [address] [id number] [place] [address] 28332- 8055 Jan, [facility] [id number] [address] 2120 Jan, Renal insufficiency N28.9 [facility] [id number] [place] [address] 46274- 7763 Jan, [facility] [id number] [place] [address] 71342- 3087 Jan, Diabetes type 2, controlled E11.9 ; Mood disorder F39 and BMI 40.0-44.9, adult Z68.41 [facility] [id number] [place] [address] 56315- 0099 Jan, BMI 40.0-44.9, adult Z68.41 [facility] [address], [place] [address]- 6946 December, [facility] [id number] [place] [address] 19322- 5297 December, [facility] [address], [place] [address] 8230 December, Seborrheic keratoses L82.1 [facility] [address], [place] [address]- 6847 December, Seborrheic keratoses L82.1 [facility] [address], [place] [address]- 7185 December, [facility] [address], [place] [address]- 8588 December, [facility] [address], [place] [address]- 2425 December, BMI 40.0-44.9, adult Z68.41 [facility] [address] [id number] [place] [address] 49583- 6449 December, [facility] [address] [id number] [place] [address] 88801- 5863 December, [facility] [id number] [place] [address] 66442- 1290 Nov, [facility] [address] 45829- 5818 Nov, [facility] [address] [place] [id number] [place] [address] 72427- 1710 Nov, Seborrheic keratoses L82.1 [place] [address] 13057- 4065 Nov, Renal insufficiency N28.9 [place] [address] 40776- 8050 Nov, [facility] [address] [place] [id number] [place] [address] 90133- 3508 Nov, [place] [address] [id number] [place] [address] 18962- 2250 Nov, [facility] [address] [place] [id number] [place] [address] 44176- 5341 Nov, Type 2 diabetes mellitus with diabetic neuropathy, unspecified E11.40 ; Other chronic pain G89.29 ; Bronchitis J40 ; Renal cyst N28.1 ; Pain of left foot M79.672 and Pain in right foot M79.671 [place] [address] [id number] [place] [address] 10903- 5626 Oct, Type 2 diabetes mellitus without complications E11.9 [place] [address] [place] [id number] [place] [address] 16893- 8927 Oct, SOB (shortness of breath) R06.02 [place] [address] [place] [id number] [place] [address] 30445- 1727 Oct, SOB (shortness of breath) R06.02 [facility] [address], [place] [address]- 2575 Sep, Type 2 diabetes mellitus without complications E11.9 [facility] [address] [place] [id number] [place] [address] 38821- 0711 12 Sep, 2017 Left flank pain R10.9 [facility] [address] [place] [id number] [place] [address] 06109- 8271 Sep, BMI 40.0-44.9, adult Z68.41 ; Left flank pain R10.9 and Seborrheic keratoses L82.1 [place] [address] [id number] [place] [address] 57768- 7259 Aug, Type 2 diabetes mellitus without complications E11.9 [place] [address] [address] [id number] [place] [address] 79109- 7101 Jul, Type 2 diabetes mellitus without complications E11.9 and Abdominal pain, left lower quadrant R10.32 [facility] [address] [place], [place] [id number] [place] [address] Jun, [facility] [address] [place] [id number] [place] [address] 51994- 5431 Jun, Type 2 diabetes mellitus without complications E11.9 [place] [address] [place] [address] 48210- 3697 Jun, Controlled type 2 diabetes mellitus without complication, without long-term current use of insulin E11.9 and Seborrheic keratoses L82.1 [facility] [address], [place] [address] May, Acute back pain M54.9 [facility] [address] [id number] [place] [address] 61700- 5008 13 May, 2017 Type 2 diabetes mellitus without complications E11.9 [facility] [address] [place] [id number] [place] [address] 37418- 4370 Apr, Diabetes type 2, controlled E11.9 ; Lumbago with sciatica, left side M54.42 and Diabetic mononeuropathy associated with type 2 diabetes mellitus E11.41 [place] [address] [place] [id number] [place] [address] 14377- 0974 Apr, Type 2 diabetes mellitus without complications E11.9 [place] [address] [place] [id number] [place] [address] 46878- 9493 Apr, [place] [address] [place] [id number] [place] [address] 58362- 7168 Mar, Type 2 diabetes mellitus without complications E11.9 [place] [address] [id number] [place] [address] 39303- 9492 Feb, Controlled type 2 diabetes mellitus without complication, without long-term current use of insulin E11.9 ; Neuropathy G62.9 and Onychomycosis B35.1 [place] [address] [id number] [place] [address] 66577- 9347 Jan, Type 2 diabetes mellitus with diabetic neuropathy, unspecified E11.40 [place] [address] [place] [id number] [place] [address] 32911- 3717 Jan, Type 2 diabetes mellitus with diabetic neuropathy, unspecified E11.40 [place] [address] [place] [address] [id number] [place] [address] 51918- 0103 December, Type 2 diabetes mellitus without complications E11.9 [place] [address] [place] [id number] [place] [address] 17563- 7111 December, Slow transit constipation K59.01 and Pain in right hip M25.551 [place] [address] [place] [id number] [place] [address] 79912- 0079 Nov, Type 2 diabetes mellitus without complications E11.9 [place] [address] [place] [id number] [place] [address] 83909- 0019 Oct, Lumbago with sciatica, left side M54.42 and Other chronic pain G89.29 [place] [address], [place] [address]- 0598 Sep, Diabetes mellitus E11.9 ; Lumbago with sciatica, left side M54.42 and Type 2 diabetes mellitus without complications E11.9 [facility] [address], [place] [address]- 7205 Aug, Type 2 diabetes mellitus without complications E11.9 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 [facility] [address] [address] Aug, Dental examination Z01.20 [facility] [address] [place] [id number] [place] [address] [id number] Aug, Dental examination Z01.20 [facility] [address], [place] [address] Aug, Dental abscess K04.7 [facility] [address], [place] [address]- 3844 Jul, Type 2 diabetes mellitus with hyperglycemia E11.65 and custodial 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 [facility] [address], [place] [address]- 3835 Jul, [place] [address], [place] [address]- 7667 Jul, Type 2 diabetes mellitus with diabetic neuropathy, unspecified E11.40 [facility] [address], [place] [address]- 5159 Jun, Type 2 diabetes mellitus with diabetic neuropathy, unspecified E11.40 and Lumbago with sciatica, left side M54.42 [facility] [address], [place] [address]- 5888 May, Controlled type 2 diabetes mellitus without complication, without long-term current use of insulin E11.9 [facility] [address], [place] [address]- 6489 Apr, Controlled type 2 diabetes mellitus without complication, without long-term current use of insulin E11.9 and Lumbar neuritis M54.16 [place] [address] [place] [id number] [place] [address] 79847- 6581 Mar, [place] [address] [place] [id number] [place] [address] 85056- 6049 Mar, Other chronic pain G89.29 ; Pain in left knee M25.562 ; Sciatica, left side M54.32 ; Pain in left hip M25.552 ; Type 2 diabetes mellitus with hyperglycemia E11.65 ; 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 and Mood disorder F39 [place] [address] [place] [address] [place] [address] 91800- 0564 December, Diabetes type 2, controlled E11.9 [place] [address] [place] [id number] [place] [address] 67602- 5059 December, Diabetes type 2, controlled E11.9 [place] [address] 85795- 1225 Oct, Shoulder pain, right M25.511 and Knee pain, right M25.561 [place] [address] 86093- 4441 Oct, Knee pain, left M25.562 [place] [address] [place] [id number] [place] [address] 47937- 3017 Sep, Diabetes mellitus E11.9 and Knee pain M25.569 [place] [address] [place] [id number] [place] [address] 70245- 6591 Sep, [place] [address] [place] [id number] [place] [address] 43848- 6594 Jun, Type 2 diabetes mellitus with diabetic neuropathy, unspecified E11.40 and Type 2 diabetes mellitus with hyperglycemia E11.65 [place] [address] [place] [id number] [place] [address] 84257- 9624 May, Diabetes mellitus E11.9 [place] [address] [place] [address]- 5281 May, Diabetes mellitus E11.9 and Lumbago with sciatica, left side M54.42 [facility] [address] [place] [id number] [place] [address] 784962- 6993 Jan, Osteoarthritis of knees, bilateral 715.96 [facility] [id number] [place] [address] 735208- 1136 December, [facility] [id number] [place] [address] 229789- 3523 December, Knee pain, bilateral 719.46 [facility] [address] [id number] [place] [address] 937754- 2466 Nov, Knee pain, bilateral 719.46 [facility] [address] [id number] [place] [address] 60577- 9578 Nov, [facility] [id number] [place] [address] 84873- 1289 Nov, [facility] [address] [id number] [place] [address] 992707- 2425 Oct, [facility] [id number] [place] [address] 76252- 0398 Oct, [facility] [id number] [place] [address] 708971- 9973 Aug, [facility] [id number] [place] [address] 15328- 2456 Aug, [facility] [address] [id number] [place] [address] 17400- 9423 Jul, [facility] [id number] [place] [address] 31415- 7326 Jul, [facility] [id number] [place] [address] 10505- 5276 Jun, [facility] [id number] [place] [address] 62988- 6265 17 Jun, 2014 [facility] [place] [facility] [address] [id number] [place] [address]- 0233 15 May, 2014 [facility] [place] [facility] [address] [id number] [place]- 7694 15 May, 2014 [facility] [place] [facility] [address] [id number] [place] [address]- 8760 15 Apr, 2014 [facility] [place] [facility] [address] [id number] [place] [address]- 7333 15 Apr, 2014 [facility] [place] [facility] [address] [id number] [place] [address]- 5811 08 Apr, 2014 [facility] [place] [facility] [address] [id number] [place] [address]- 5270 08 Apr, 2014 [facility] [place] [facility] [address] [id number] [place] [address]- 7194 16 Feb, 2014 [facility] [place] [facility] [address] [id number] [place] [address]- 6100 Feb, [facility] [place] [facility] [address] [id number] [place] [address]- 4176 December, [facility] [place] [facility] [address] [id number] [place] [address]- 5318 December, [facility] [place] [facility] [address] [id number] [place] [address]- 9761 December, [facility] [place] [facility] [address] [id number] [place] [address]- 0603 December, [facility] [place] [facility] [address] [id number] [place] [address]- 4786 Nov, [facility] [place] [facility] [address] [id number] [place] [address]- 8658 Nov, [facility] [place] [facility] [address] [id number] [place] [address]- 1793 Oct, [facility] [place] [facility] [address] [id number] [place] [address]- 4126 14 Oct, 2013 [facility] [address] [id number] [place] [address]- 6323 Aug, [facility] [address] [id number] [place] [address]- 2166 Aug, [facility] [address] [id number] [place] [address]- 6536 Jul, [facility] [address] [id number] [place] [address]- 5535 Jul, [facility] [address] [id number] [place] [address]- 5886 May, [facility] [address] [id number] [place] [address]- 5956 Jan, [facility] [address] [id number] [place] [address]- 3621 Jan, [facility] [address] [id number] [place] [address]- 8846 December, [facility] [address] [id number] [place] [address]- 2046 Nov, [facility] [address] [id number] [place] [address]- 1065 Oct, [facility] [address] [id number] [place] [address]- 2546 19 Oct, 2012 [facility] [address] [id number] [place] [address]- 9129 14 Oct, 2012 [facility] [place] [facility] [address] [id number] [place] [address]- 2546 11 Oct, 2012 [facility] [address] [id number] [place] [address]- 2546 07 Oct, 2012 [facility] [address] [id number] [place] [address]- 5366 Oct, [facility] [address] [id number] [place] [address]- 9276 Sep, [facility] [place] [facility] [address] [id number] [place] [address]- 6099 Jul, [facility] [place] [facility] [address] [id number] [place] 8074 Jul, [facility] [place] [facility] [address] [id number] [place] [address]- 0988 Jul, [facility] [place] [facility] [address] [id number] [place] [address]- 4340 Jun, [facility] [place] [facility] [address] [id number] [place] [address]- 8235 Jun, [facility] [place] [facility] [address] [id number] [place] [address]- 2136 Jun, [facility] [place] [facility] [address] [id number] [place] [address]- 7063 Jun, [facility] [place] [facility] [address] [id number] [place] [address]- 3486 Mar, [facility] [place] [facility] [address] [id number] [place] [address]- 7957 Mar, [facility] [place] [facility] [address] [id number] [place] [address]- 9964 Feb, [facility] [place] [facility] [address] [id number] [place] [address]- 8122 Feb, [facility] [place] [facility] [address] [id number] [place] [address]- 5079 December, [facility] [place] [facility] [address] [id number] [place] [address]- 1446 December, [facility] [place] [facility] [address] [id number] [place] [address]- 3437 Nov, [facility] [place] [facility] [address] [id number] [address]- 0604 Oct, [facility] [address] [place] [address]- 9809 Oct, [facility] [address] 3766 Jul, [facility] [address] [place] [address]- 9240 Sep, [facility] [address], [place] [address]- 7052 Jul, [facility] [address] [place] [address]- 3142 Jan, [facility] [address] [place] [address]- 9285 Jun, [facility] [address], [place] [address]- 5298 Mar, [facility] [address], [place] [address]- 7588 Jan, [facility] [address]- 3821 December, [facility] [address], [place] [address]- 9572 Oct, [facility] [id number] 6052 Sep, IMMUNIZATIONS No Known Immunizations SOCIAL HISTORY Never Assessed REASON FOR VISIT body aches/shortness of breath- Started wednesday, hurts all over, feels JUAN DAVID Kumar RN PLAN OF CARE Activity Details Follow Up prn Reason: VITAL SIGNS Height 67 in 2018-01-26 Weight 270 lbs 2018-01-26 Temperature 99.1 degrees Fahrenheit 2018-01-26 Heart Rate 92 bpm 2018-01-26 Respiratory Rate 22 2018-01-26 Oximetry 95 % 2018-01-26 BMI 42.28 kg/m2 2018-01-26 Blood pressure systolic 158 mmHg 2018-01-26 Blood pressure diastolic 98 mmHg 2018-01-26 MEDICATIONS Medication Instructions Dosage Frequency Start Date End Date Duration Status BD Pen Needle Ultrafine 29G X 12.7MM Inject 6h May, Active Lisinopril 40 mg Orally Once a day 1 tablet 24h May, Active Levaquin 750 MG Orally Once a day 1 tablet 24h 20 Jan, 2018 Jan, 5 days Active Doxepin HCl 50 mg Orally Once a day, at night 2 capsules Nov, Active Metformin HCl 1000 MG Orally Twice a day 1 tablet with meals 12h May, Active Levemir FlexTouch 100 UNIT/ML Subcutaneous Once a day 90 units 24h May, Active Amlodipine Besylate 10 mg Orally Once a day 1 tablet 24h Jan, 30 day(s) Active Tessalon Perles 100 MG Orally Three times a day 1 capsule as needed 8h 5 days Active Humalog KwikPen 100 UNIT/ML Subcutaneous 3 times a day 30 units 8h December, Active Lipitor 20 mg Orally Once a day 1 tablet 24h May, Active Neurontin 800 MG Orally Three times a day 1 capsule 8h Feb, Active Aspirin 325 MG Orally Once a day 1 tablet 24h Active DuoNeb Active Metoprolol Tartrate 100 mg Orally Twice a day 1 tablet with food 12h December Active Oxycodone-Acetaminophen 10-325 MG Orally every 6 hrs 1 tablet as needed 6h Jan, 28 days Active ProAir HFA 108 (90 Base) MCG/ACT Inhalation every 6 hrs 2 puffs as needed 6h Oct, Active RESULTS Name Result Date Reference Range GLUCOSE FINGERSTICK (IN HOUSE) 2018-01-26 GLU FINGERSTICK 189 PC unknown Lot # [id number] Exp date 06/23/2018 Xray : Chest 2 View (IN HOUSE) 2018-01-26 PROCEDURES Procedure Date Ordered Result Body Site X-RAY EXAM CHEST 2 VIEWS January 26, 2018 GLUCOSE BLOOD TEST January 26, 2018 [facility] VISIT ESTABLISHED PATIENT January 26, 2018 INSTRUCTIONS MEDICATIONS ADMINISTERED No Known Medications MEDICAL (GENERAL) HISTORY Type Description Date Medical History type II diabetes Medical History hyperlipidemia Medical History hypertension Medical History chronic pain back/knees Surgical History right knee arthroscopy 1994 Surgical History heart cath, 2010--clear Surgical History left knee arthroscopy 2010 Surgical History back surgery with rods 12/2016 Hospitalization History surgeries Hospitalization History [facility] ED- Back/Left Side Pain 06/06/2017 Hospitalization History [facility] ED- Congested, cough and SOB 11/07/2017
--- OUTSIDE RECORDS SUMMARY | 2018-04-20 15:54 | XMS REPORT ---
Author Author NISHI PALENCIA Organization [facility] Address [address] [place] [address] Care Team Providers Care Career Resource Specialist Name Role Phone SLIME NISHI Unavailable PROBLEMS Type Condition ICD9-CM Code KUQ25-TO Code Onset Dates Condition Status SNOMED Code Problem Type 2 diabetes mellitus without complications E11.9 Active 907247314 Problem Slow transit constipation K59.01 Active 85071221 Problem Other chronic pain G89.29 Active 19632876 Problem Essential (primary) hypertension I10 Active 34267628 Problem Chronic kidney disease, stage III (moderate) N18.3 Active 553060321 Problem Diabetic mononeuropathy associated with type 2 diabetes mellitus E11.41 Active 497127542 Problem Neuropathy G62.9 Active 662232056 Problem Chronic fatigue R53.82 Active 60900955 Problem Mood disorder F39 Active 52264642 Problem Type 2 diabetes mellitus with hyperglycemia E11.65 Active 551176480 Problem Controlled type 2 diabetes mellitus without complication, without long -term current use of insulin E11.9 Active 432652631 Problem Type 2 diabetes mellitus with diabetic neuropathy, unspecified E11.40 Active 20605298 Problem Lumbago with sciatica, left side M54.42 Active 031546038 Problem Diabetes type 2, controlled E11.9 Active 35418804 Problem half-way 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 Active 384661781 ALLERGIES No Information ENCOUNTERS Encounter Location Date Diagnosis [facility] [address] [facility] [id number] [address] Apr, [facility] [address], [place] [address] Mar, Chronic kidney disease, stage III (moderate) N18.3 ; Essential (primary) hypertension I10 ; Type 2 diabetes mellitus without complication, unspecified whether care home insulin use E11.9 ; Simple renal cyst N28.1 and Pain R52 [facility] [id number] [place] [address] 96597- 6638 Mar, Seborrheic keratoses L82.1 [facility] [id number] [place] [address] 84266- 8023 Mar, Type 2 diabetes mellitus with hyperglycemia E11.65 [facility] [id number] [place] [address] 66632- 5213 Feb, Seborrheic keratoses L82.1 and Type 2 diabetes mellitus with diabetic neuropathy, unspecified E11.40 [facility] [id number] [place] [address] 35716- 7158 Feb, Type 2 diabetes mellitus with diabetic neuropathy, unspecified E11.40 ; Renal insufficiency N28.9 and Chronic fatigue R53.82 [facility] [id number] [place] [address] 27907- 1509 Jan, Pneumonia of both lower lobes due to infectious organism J18.1 and Mood disorder F39 [facility] [id number] [place] [address] 09002- 5767 Jan, BMI 40.0-44.9, adult Z68.41 [facility] [id number] [place] [address] 94568- 5468 Jan, [facility] [id number] [place] [address] 02222- 0053 Jan, [facility] [id number] [place] [address] 24272 -4860 Jan, Wheezes R06.2 ; Diabetes type 2, controlled E11.9 and Pneumonia of right lower lobe due to infectious organism J18.1 [facility] [id number] [place] [address] 42792- 8851 Jan, Renal insufficiency N28.9 [facility] [id number] [place] [address] 11809- 8197 18 Jan, 2018 Seborrheic keratoses L82.1 [facility] [address] [place] [address]- 2053 Jan, [facility] [id number] [place] [address] 84417- 2381 Jan, [facility] [address] [id number] [address] 2962 Jan, Renal insufficiency N28.9 [facility] [id number] [place] [address] 29075- 7524 Jan, [facility] [id number] [place] [address] 76626- 0638 Jan, Diabetes type 2, controlled E11.9 ; Mood disorder F39 and BMI 40.0-44.9, adult Z68.41 [facility] [id number] [place] [address] 64485- 0502 Jan, BMI 40.0-44.9, adult Z68.41 [facility] [id number] [place] [address] 46586- 9873 December, [facility] [id number] [place] [address] 99832- 4676 December, [facility] [id number] [place] [address] 62510- 4304 December, Seborrheic keratoses L82.1 [facility] [address], [place] [address] 7682 December, Seborrheic keratoses L82.1 [facility] [address], [place] [address]- 3566 December, [facility] [id number] [place] [address] 70918- 7705 December, [facility] [address], [place] [address]- 8765 December, BMI 40.0-44.9, adult Z68.41 [facility] [id number] [place] [address] 64870- 6296 December, [facility] [id number] [place] [address] 36883- 5706 December, [facility] [id number] [place] [address] 42002- 9272 Nov, [facility] [id number] [place] [address] 03886- 8883 Nov, [facility] [address] 84342- 3779 Nov, Seborrheic keratoses L82.1 [facility] [address] 58707- 3179 Nov, Renal insufficiency N28.9 [facility] [id number] [place] [address] 05144- 1575 Nov, [facility] [address] 98998- 2365 Nov, [facility] [id number] [place] [address] 05281- 7046 Nov, [facility] [id number] [place] [address] 65158- 5966 Nov, Type 2 diabetes mellitus with diabetic neuropathy, unspecified E11.40 ; Other chronic pain G89.29 ; Bronchitis J40 ; Renal cyst N28.1 ; Pain of left foot M79.672 and Pain in right foot M79.671 [facility] [id number] [place] [address] 51026- 8626 Oct, Type 2 diabetes mellitus without complications E11.9 [facility] [id number] [place] [address] 10950- 6743 Oct, SOB (shortness of breath) R06.02 [facility] [id number] [place] [address] 57798- 1495 Oct, SOB (shortness of breath) R06.02 [facility] [address], [place] [address]- 6011 Sep, Type 2 diabetes mellitus without complications E11.9 [facility] [id number] [place] [address] 36240- 3547 Sep, Left flank pain R10.9 [facility] [id number] [place] [address] 64594- 6258 Sep, BMI 40.0-44.9, adult Z68.41 ; Left flank pain R10.9 and Seborrheic keratoses L82.1 [facility] [id number] [place] [address] 47692- 4372 Aug, Type 2 diabetes mellitus without complications E11.9 [facility] [id number] [place] [address] 12919- 2145 Jul, Type 2 diabetes mellitus without complications E11.9 and Abdominal pain, left lower quadrant R10.32 [facility] [address] [id number] [address] Jun, [facility] [id number] [place] [address] 04219- 4776 Jun, Type 2 diabetes mellitus without complications E11.9 [facility] [address], [place] [address] 5067 Jun, Controlled type 2 diabetes mellitus without complication, without long-term current use of insulin E11.9 and Seborrheic keratoses L82.1 [facility] [address], [place] [address] May, Acute back pain M54.9 [facility] [id number] [place] [address] 49879- 7827 13 May, 2017 Type 2 diabetes mellitus without complications E11.9 [facility] [address], [place] [address] 9509 28 Apr, 2017 Diabetes type 2, controlled E11.9 ; Lumbago with sciatica, left side M54.42 and Diabetic mononeuropathy associated with type 2 diabetes mellitus E11.41 [facility] [id number] [place] [address] 46672- 1052 Apr, Type 2 diabetes mellitus without complications E11.9 [facility] [id number] [place] [address] 99177- 5230 Apr, [facility] [id number] [place] [address] 58846- 0782 Mar, Type 2 diabetes mellitus without complications E11.9 [facility] [id number] [place] [address] 59056- 4070 Feb, Controlled type 2 diabetes mellitus without complication, without long-term current use of insulin E11.9 ; Neuropathy G62.9 and Onychomycosis B35.1 [facility] [id number] [place] [address] 54344- 2157 Jan, Type 2 diabetes mellitus with diabetic neuropathy, unspecified E11.40 [facility] [id number] [place] [address] 04781- 4239 Jan, Type 2 diabetes mellitus with diabetic neuropathy, unspecified E11.40 [facility] [id number] [place] [address] 55044- 7569 December, Type 2 diabetes mellitus without complications E11.9 [facility] [id number] [place] [address] 65624- 6126 December, Slow transit constipation K59.01 and Pain in right hip M25.551 [facility] [id number] [place] [address] 06866- 6398 Nov, Type 2 diabetes mellitus without complications E11.9 [facility] [id number] [place] [address] 27800- 3925 Oct, Lumbago with sciatica, left side M54.42 and Other chronic pain G89.29 [facility] [id number] [place] [address] 48927- 7057 Sep, Diabetes mellitus E11.9 ; Lumbago with sciatica, left side M54.42 and Type 2 diabetes mellitus without complications E11.9 [facility] [id number] [place] [address] 45810- 6069 Aug, Type 2 diabetes mellitus without complications E11.9 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 [facility] [place] [facility] [id number] [place] [address] [id number] Aug, Dental examination Z01.20 [facility] [place] [facility] [id number] [place] [address] [id number] Aug, Dental examination Z01.20 [facility] [id number] [place] [address] 44844 -8885 Aug, Dental abscess K04.7 [facility] [id number] [place] [address] 88665- 9765 Jul, Type 2 diabetes mellitus with hyperglycemia E11.65 and half-way 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 [facility] [id number] [place] [address] 72903- 5113 Jul, [facility] [id number] [place] [address] 64905- 1534 Jul, Type 2 diabetes mellitus with diabetic neuropathy, unspecified E11.40 [facility] [id number] [place] [address] 41235- 8443 Jun, Type 2 diabetes mellitus with diabetic neuropathy, unspecified E11.40 and Lumbago with sciatica, left side M54.42 [facility] [id number] [place] [address] 17667- 7050 May, Controlled type 2 diabetes mellitus without complication, without long-term current use of insulin E11.9 [facility] [id number] [place] [address] 63121- 2683 08 Apr, 2016 Controlled type 2 diabetes mellitus without complication, without long-term current use of insulin E11.9 and Lumbar neuritis M54.16 [facility] [id number] [place] [address] 10991- 4654 Mar, [facility] [id number] [place] [address] 09132- 5532 Mar, Other chronic pain G89.29 ; Pain in left knee M25.562 ; Sciatica, left side M54.32 ; Pain in left hip M25.552 ; Type 2 diabetes mellitus with hyperglycemia E11.65 ; 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 and Mood disorder F39 [facility] [id number] [place] [address] 53655- 3663 December, Diabetes type 2, controlled E11.9 [facility] [id number] [place] [address] 65257- 5098 December, Diabetes type 2, controlled E11.9 [facility] [id number] [place] [address] 39418- 6508 Oct, Shoulder pain, right M25.511 and Knee pain, right M25.561 [facility] [id number] [place] [address] 58677- 9371 Oct, Knee pain, left M25.562 [facility] [id number] [place] [address] 13099- 2295 Sep, Diabetes mellitus E11.9 and Knee pain M25.569 [facility] [id number] [place] [address] 30794- 1321 Sep, [facility] [id number] [place] [address] 79004- 6846 Jun, Type 2 diabetes mellitus with diabetic neuropathy, unspecified E11.40 and Type 2 diabetes mellitus with hyperglycemia E11.65 [facility] [id number] [place] [address] 56907- 5112 May, Diabetes mellitus E11.9 [facility] [id number] [place] [address] 41920- 3484 May, Diabetes mellitus E11.9 and Lumbago with sciatica, left side M54.42 [facility] [id number] 0286 Jan, Osteoarthritis of knees, bilateral 715.96 [facility] [id number] 8136 December, [facility] [id number] [place] [address] 595853- 3609 December, Knee pain, bilateral 719.46 [facility] [id number] [place] [address], [place] [address]- 1327 Nov, Knee pain, bilateral 719.46 [facility] [id number] [place] [address] 21105- 1193 Nov, [facility] [id number] [place] [address] 36016- 6903 Nov, [facility] [id number] [address]- 5732 Oct, [facility] [id number] [place] [address] 955254- 9872 Oct, [facility] [address] 9143 Aug, [facility] [address], [place] [address]- 3966 Aug, [facility] [address], [place] [address]- 7493 Jul, [facility] [id number] [address]- 2616 Jul, [facility] [address], [place] [address]- 7386 Jun, [facility] [address], [place] [address]- 8506 Jun, [facility] [place] [facility] [address] [id number] [place] [address]- 2425 15 May, 2014 [facility] [place] [facility] [address] [id number] [place] [address]- 9318 15 May, 2014 [facility] [place] [facility] [address] [id number] [place] [address]- 6379 15 Apr, 2014 [facility] [place] [facility] [address] [id number] [place] [address]- 2235 15 Apr, 2014 [facility] [place] [facility] [address] [id number] [place] [address]- 0874 08 Apr, 2014 [facility] [place] [facility] [address] [id number] [place] [address]- 1802 Apr, [facility] [place] [facility] [address] [id number] [place] [address]- 4672 Feb, [facility] [place] [facility] [address] [id number] [place] [address]- 4586 Feb, [facility] [place] [facility] [address] [id number] [place] [address]- 4960 December, [facility] [place] [facility] [address] [id number] [place] [address]- 1420 December, [facility] [place] [facility] [address] [id number] [place] [address]- 9126 December, [facility] [place] [facility] [address] [id number] [place] [address]- 0090 December, [facility] [place] [facility] [address] [id number] [place] [address]- 1021 Nov, [facility] [place] [facility] [address] [id number] [place] [address]- 5917 Nov, [facility] [place] [facility] [address] [id number] [place] [address]- 6849 Oct, [facility] [place] [facility] [address] [id number] [place] [address]- 2996 14 Oct, 2013 [facility] [address] [id number] [place] [address]- 0239 Aug, [facility] [place] [facility] [address] [id number] [place] [address]- 4006 Aug, [facility] [place] [facility] [address] [id number] [place] [address]- 7072 Jul, [facility] [place] [facility] [address] [id number] [place] [address]- 1859 Jul, [facility] [place] [facility] [address] [id number] [place] [address]- 4230 May, [facility] [place] [facility] [address] [id number] [place] [address]- 5853 Jan, [facility] [place] [facility] [address] [id number] [place] [address]- 1927 Jan, [facility] [place] [facility] [address] [id number] [place] [address]- 0435 December, [facility] [place] [facility] [address] [id number] [place] [address]- 4743 Nov, [facility] [place] [facility] [address] [id number] [place] [address]- 8044 Oct, [facility] [place] [facility] [address] [id number], [place] [address]- 3995 19 Oct, 2012 [facility] [place] [facility] [address] [id number], [place] [address]- 6860 14 Oct, 2012 [facility] [place] [facility] [address] [id number] [place] [address]- 5300 11 Oct, 2012 [facility] [place] [facility] [address] [id number] [place] [address]- 8646 07 Oct, 2012 [facility] [place] [facility] [address] [id number] [place] [address]- 2546 07 Oct, 2012 [facility] [place] [facility] [address] [id number] [place] [address]- 2546 07 Sep, 2012 [facility] [address] [id number] [place] [address]- 5311 Jul, [facility] [address] [id number] [place] [address] 2546 Jul, [facility] [address] [id number] [place] [address]- 5746 Jul, [facility] [address] [id number] [place] [address]- 8894 Jun, [facility] [address] [id number] [place] [address]- 3724 Jun, [facility] [address] [id number] [place] [address]- 8002 Jun, [facility] [address] [id number] [place] [address]- 0503 Jun, [facility] [address] [id number] [place] [address]- 3244 Mar, [facility] [address] [id number] [place] [address]- 3577 Mar, [facility] [address] [id number] [place] [address]- 2897 Feb, [facility] [address] [id number] [place] [address]- 5548 Feb, [facility] [address] [id number] [place] [address]- 8166 December, [facility] [place] [facility] [address] [id number] [place] [address]- 6456 December, [facility] [address] [id number] [place] [address]- 2546 Nov, [facility] [address] [id number] [place] [address]- 4776 Oct, [facility] [id number] [address]- 9655 Oct, [facility] [address], [place] [address]- 1508 Jul, [facility] [address], [place] [address]- 4479 Sep, [facility] [address], [place] [address]- 5674 Jul, [facility] [address] 5737 Jan, [facility] [address] [place] [address] 18535- 2530 Jun, [facility] [address], [place] [address]- 5640 Mar, [facility] [address], [place] [address]- 8569 Jan, [facility] [address], [place] [address]- 2658 December, [facility] [address], [place] [address]- 3966 Oct, [facility] [id number], [place] [address]- 6555 Sep, IMMUNIZATIONS No Known Immunizations SOCIAL HISTORY Never Assessed REASON FOR VISIT Waiting for call back PLAN OF CARE VITAL SIGNS MEDICATIONS Medication Instructions Dosage Frequency Start Date End Date Duration Status Lasix 40 MG Orally Once a day 1 tablet 24h Jan, 30 day(s) Active RESULTS No Results PROCEDURES No Known [...] rods 12/2016 Hospitalization History surgeries Hospitalization History [facility] [place] [facility]- Back/Left Side Pain 06/06/2017 Hospitalization History [facility] [place] ED- Congested, cough and SOB 11/07/2017
--- OUTSIDE RECORDS SUMMARY | 2018-04-20 15:55 | XMS REPORT ---
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 Active 989595603 Problem Type 2 diabetes mellitus with diabetic neuropathy, unspecified E11.40 Active 61502529 Problem Diabetes type 2, controlled E11.9 Active 71426406 Problem Type 2 diabetes mellitus with hyperglycemia E11.65 Active 524645386 Problem Controlled type 2 diabetes mellitus without complication, without long -term current use of insulin E11.9 Active 160555511 Problem Chronic fatigue R53.82 Active 70911748 Problem Mood disorder F39 Active 13992731 Problem Slow transit constipation K59.01 Active 11648492 Problem Other chronic pain G89.29 Active 37430289 Problem Diabetic mononeuropathy associated with type 2 diabetes mellitus E11.41 Active 725566587 Problem Neuropathy G62.9 Active 949530502 ALLERGIES No Information ENCOUNTERS Encounter Location Date Diagnosis [place] [id number], [place] [address] Apr, [place] [address], [place] [address] Mar, Seborrheic keratoses L82.1 [place] [id number] [place] [address] 16737- 6751 Mar, Type 2 diabetes mellitus with hyperglycemia E11.65 [place] [id number], [place] [address] 38[address] Feb, Seborrheic keratoses L82.1 and Type 2 diabetes mellitus with diabetic neuropathy, unspecified E11.40 [facility] [id number] [place] [address] 33420- 6242 09 Feb, 2018 Type 2 diabetes mellitus with diabetic neuropathy, unspecified E11.40 ; Renal insufficiency N28.9 and Chronic fatigue R53.82 [facility] [id number] [place] [address] 96161- 9250 Jan, Pneumonia of both lower lobes due to infectious organism J18.1 and Mood disorder F39 [facility] [id number] [place] [address] 30925- 8159 Jan, BMI 40.0-44.9, adult Z68.41 [place] [id number] [place] [address] 40719- 4978 Jan, [place] [id number] [place] [address] 29240- 1634 Jan, [facility] [id number] [place] [address] 17387 -0247 Jan, Wheezes R06.2 ; Diabetes type 2, controlled E11.9 and Pneumonia of right lower lobe due to infectious organism J18.1 [place] [id number] [place] [address] 68418- 8633 19 Jan, 2018 Renal insufficiency N28.9 [facility] [id number] [place] [address] 97668- 6350 18 Jan, 2018 Seborrheic keratoses L82.1 [facility] [id number] [place] [address] 60602- 1083 18 Jan, 2018 [facility] [id number] [place] [address] 25810- 0995 11 Jan, 2018 [facility] [id number] [place] [address] 02840- 1458 08 Jan, 2018 Renal insufficiency N28.9 [facility] [id number] [place] [address] 41106- 1145 Jan, [facility] [address], [place] [address] 5022 Jan, Diabetes type 2, controlled E11.9 ; Mood disorder F39 and BMI 40.0-44.9, adult Z68.41 [facility] [id number] 0409 Jan, BMI 40.0-44.9, adult Z68.41 [facility] [id number], [place] [address] 3031 December, [facility] [id number] [place] [address] 22538- 0571 December, [facility] [id number] [place] [address] 46451- 7133 December, Seborrheic keratoses L82.1 [facility] [id number], [place] [address] 5107 December, Seborrheic keratoses L82.1 [facility] [address], [place] [address]- 7107 December, [facility] [address], [place] [address]- 0694 December, [facility] [address], [place] [address]- 2918 December, BMI 40.0-44.9, adult Z68.41 [facility] [address], [place] [address]- 1204 December, [facility] [id number] 8766 December, [facility] [address], [place] [address]- 8264 Nov, [facility] [address], [place] [address]- 5676 Nov, [place] [id number] [place] [address] 06146- 2523 Nov, Seborrheic keratoses L82.1 [place] [address] 75881- 9358 Nov, Renal insufficiency N28.9 [place] [address] 12799- 6943 Nov, [place] [address] 53622- 0149 Nov, [place] [address] 36453- 2438 Nov, [place] [address] 70263- 7886 Nov, Type 2 diabetes mellitus with diabetic neuropathy, unspecified E11.40 ; Other chronic pain G89.29 ; Bronchitis J40 ; Renal cyst N28.1 ; Pain of left foot M79.672 and Pain in right foot M79.671 [place] [id number] [place] [address] 44770- 0939 Oct, Type 2 diabetes mellitus without complications E11.9 [place] [id number] [place] [address] 10505- 9234 Oct, SOB (shortness of breath) R06.02 [place] [address] 74849- 4958 Oct, SOB (shortness of breath) R06.02 [place] [id number] [place] [address] 49119- 3743 Sep, Type 2 diabetes mellitus without complications E11.9 [place] [id number] [place] [address] 56491- 3148 Sep, Left flank pain R10.9 [place] [address] 01429- 4923 Sep, BMI 40.0-44.9, adult Z68.41 ; Left flank pain R10.9 and Seborrheic keratoses L82.1 [facility] [address], [place] [address] 0316 Aug, Type 2 diabetes mellitus without complications E11.9 [facility] [address], [place] [address]- 5010 Jul, Type 2 diabetes mellitus without complications E11.9 and Abdominal pain, left lower quadrant R10.32 [facility] [address] [id number] [address] Jun, [facility] [id number] [place] [address] 70371- 2829 Jun, Type 2 diabetes mellitus without complications E11.9 [facility] [address] [place] [address] 97582- 1489 Jun, Controlled type 2 diabetes mellitus without complication, without long-term current use of insulin E11.9 and Seborrheic keratoses L82.1 [facility] [address] [place] [address] 49393 -1112 May, Acute back pain M54.9 [facility] [address], [place] [address]- 0489 May, Type 2 diabetes mellitus without complications E11.9 [facility] [address] [place] [address] 16447- 8668 Apr, Diabetes type 2, controlled E11.9 ; Lumbago with sciatica, left side M54.42 and Diabetic mononeuropathy associated with type 2 diabetes mellitus E11.41 [facility] [address], [place] [address] 6088 Apr, Type 2 diabetes mellitus without complications E11.9 [facility] [address], [place] [address] 8718 Apr, [facility] [id number] [place] [address] 30477- 6500 Mar, Type 2 diabetes mellitus without complications E11.9 [place] [id number] [place] [address] 46915- 9961 Feb, Controlled type 2 diabetes mellitus without complication, without long-term current use of insulin E11.9 ; Neuropathy G62.9 and Onychomycosis B35.1 [place] [address] 25440- 5755 Jan, Type 2 diabetes mellitus with diabetic neuropathy, unspecified E11.40 [place] [id number] [place] [address] 11547- 6036 Jan, Type 2 diabetes mellitus with diabetic neuropathy, unspecified E11.40 [place] [id number] [place] [address] 06535- 3811 December, Type 2 diabetes mellitus without complications E11.9 [place] [id number] [place] [address] 36202- 2366 December, Slow transit constipation K59.01 and Pain in right hip M25.551 [place] [id number] [place] [address] 20798- 8010 Nov, Type 2 diabetes mellitus without complications E11.9 [place] [id number] [place] [address] 93647- 0767 Oct, Lumbago with sciatica, left side M54.42 and Other chronic pain G89.29 [place] [id number] [place] [address] 27138- 7012 Sep, Diabetes mellitus E11.9 ; Lumbago with sciatica, left side M54.42 and Type 2 diabetes mellitus without complications E11.9 [place] [id number] [place] [address] 48948- 7735 Aug, Type 2 diabetes mellitus without complications E11.9 and assisted 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 [place] [address] [place] [id number] [place] [address] [id number] Aug, Dental examination Z01.20 [facility] [address] [place] [address] [id number] Aug, Dental examination Z01.20 [facility] [id number] [place] [address] 46825 -8288 Aug, Dental abscess K04.7 [facility] [id number] [place] [address] 63781- 3689 Jul, Type 2 diabetes mellitus with hyperglycemia E11.65 and 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 manager 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 [facility] [id number] [place] [address] 52008- 7388 Jul, [place] [id number] [place] [address] 29112- 4581 Jul, Type 2 diabetes mellitus with diabetic neuropathy, unspecified E11.40 [facility] [address] [place] [address] 96677- 9170 Jun, Type 2 diabetes mellitus with diabetic neuropathy, unspecified E11.40 and Lumbago with sciatica, left side M54.42 [facility] [address] [place] [address] 27366- 8182 May, Controlled type 2 diabetes mellitus without complication, without long-term current use of insulin E11.9 [place] [id number] [place] [address] 04197- 7094 Apr, Controlled type 2 diabetes mellitus without complication, without long-term current use of insulin E11.9 and Lumbar neuritis M54.16 [facility] [address] [place] [address] 88058- 6860 Mar, [place] [id number] [place] [address] 44809- 0284 Mar, Other chronic pain G89.29 ; Pain in left knee M25.562 ; Sciatica, left side M54.32 ; Pain in left hip M25.552 ; Type 2 diabetes mellitus with hyperglycemia E11.65 ; 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 manager 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 and Mood disorder F39 [place] [id number] [place] [address] 81301- 5746 December, Diabetes type 2, controlled E11.9 [place] [id number] [place] [address] 12656- 6579 December, Diabetes type 2, controlled E11.9 [place] [address] 94488- 2375 Oct, Shoulder pain, right M25.511 and Knee pain, right M25.561 [place] [address] 48584- 9838 Oct, Knee pain, left M25.562 [place] [address] 56236- 2851 Sep, Diabetes mellitus E11.9 and Knee pain M25.569 [place] [address] 84339- 9807 Sep, [place] [address] 07495- 7468 Jun, Type 2 diabetes mellitus with diabetic neuropathy, unspecified E11.40 and Type 2 diabetes mellitus with hyperglycemia E11.65 [place] [id number] [place] [address] 62830- 7267 May, Diabetes mellitus E11.9 [place] [id number] [place] [address] 80604- 2777 May, Diabetes mellitus E11.9 and Lumbago with sciatica, left side M54.42 [place] [address] 27191- 1809 Jan, Osteoarthritis of knees, bilateral 715.96 [place] [id number] [place] [address] 55393- 1150 December, [place] [address] [place] [address]- 1646 December, Knee pain, bilateral 719.46 [facility] [address] [facility] [id number] [place] [address] 222411- 9569 Nov, Knee pain, bilateral 719.46 [facility] [address] [id number] [address]- 7270 14 Nov, 2014 [facility] [address] [facility] [id number] [place] [address] 843180- 1058 Nov, [facility] [address] [id number] [place] [address]- 7146 Oct, [facility] [address] [facility] [id number] [place] [address] 44866- 8899 Oct, [facility] [address] [place] [address] 399375- 0264 Aug, [facility] [id number] [place] [address] 69361- 5211 Aug, [facility] [id number], [place] [address]- 4403 Jul, [facility] [id number], [place] [address]- 7584 Jul, [facility] [address], [place] [address]- 7694 Jun, [facility] [address] [facility] [id number], [place] [address]- 3980 Jun, [facility] [place] [facility] [address] [facility] [id number] 8708 May, [facility] [place] [facility] [address] [facility] [id number] 0135 May, [facility] [place] [facility] [address] [facility] [id number], [place] [address]- 9221 15 Apr, 2014 [facility] [place] [facility] [id number], [place] [address]- 2246 15 Apr, 2014 [facility] [place] [facility] [address] [id number] [place] [address]- 1219 08 Apr, 2014 [facility] [place] [facility] [address] [id number] [place] 7735 Apr, [facility] [place] [facility] [address] [id number] [place] [address]- 3251 Feb, [facility] [place] [facility] [address] [id number] [place] [address]- 6147 Feb, [facility] [place] [facility] [address] [id number] [place] [address]- 8113 December, [facility] [place] [facility] [address] [id number] [place] [address]- 8002 December, [facility] [place] [facility] [address] [id number] [place] [address]- 9404 December, [facility] [place] [facility] [address] [id number] [place] [address]- 3741 December, [facility] [place] [facility] [address] [id number] [place] [address]- 1983 Nov, [facility] [place] [facility] [address] [id number] [place] [address]- 9373 Nov, [facility] [place] [facility] [address] [id number] [place] [address]- 5362 Oct, [facility] [place] [facility] [address] [id number] [place] [address]- 7715 Oct, [facility] [place] [facility] [address] [id number] [place] [address]- 0604 Aug, [facility] [place] [facility] [address] [id number] [place] [address]- 0811 Aug, [facility] [place] [facility] [address] [id number] [place] [address]- 3916 Jul, [facility] [place] [facility] [address] [id number] [place] [address]- 2546 31 Jul, 2013 [facility] [address] [id number] [place] [address]- 1256 04 May, 2013 [facility] [place] [facility] [address] [id number] [place] [address]- 2546 Jan, [facility] [address] [id number] [place] [address]- 2546 Jan, [facility] [address] [id number] [place] [address]- 2546 December, [facility] [address] [id number] [place] [address]- 2546 Nov, [facility] [address] [id number] [place] [address]- 2546 25 Oct, 2012 [facility] [address] [id number] [place] [address]- 2546 19 Oct, 2012 [facility] [address] [id number] [place] [address]- 3592 14 Oct, 2012 [facility] [address] [id number] [place] [address]- 7846 11 Oct, 2012 [facility] [address] [id number] [place] [address]- 2546 07 Oct, 2012 [facility] [place] [facility] [address] [id number] [place] [address]- 2546 07 Oct, 2012 [facility] [address] [id number] [place] [address]- 2546 07 Sep, 2012 [facility] [place] [facility] [address] [id number] [place] [address]- 2546 18 Jul, 2012 [facility] [place] [facility] [address] [id number] [place] [address]- 2546 17 Jul, 2012 [facility] [address] [id number] [place] [address]- 3225 Jul, [facility] [place] [facility] [address] [id number] [place] [address]- 0883 Jun, [facility] [place] [facility] [address] [id number] [place] [address]- 1713 Jun, [facility] [place] [facility] [address] [id number] [place] [address]- 2531 Jun, [facility] [place] [facility] [address] [id number] [place] [address]- 2074 Jun, [facility] [place] [facility] [address] [id number] [place] [address]- 4470 Mar, [facility] [place] [facility] [address] [id number] [place] [address]- 4357 Mar, [facility] [place] [facility] [address] [id number] [place] [address]- 4090 Feb, [facility] [place] [facility] [address] [id number] [place] [address]- 1395 Feb, [facility] [place] [facility] [address] [id number] [place] [address]- 5219 December, [facility] [place] [facility] [address] [id number] [place] [address]- 2197 December, [facility] [place] [facility] [address] [id number] [place] [address]- 3583 Nov, [facility] [place] [facility] [address] [id number] [place] [address] 2546 Oct, [facility] [place] [facility] [address] [id number] [place] [address]- 6605 Oct, [facility] [place] [facility] [address] [id number] [place] [address]- 6906 Jul, [facility] [place] [facility] [address] [id number] [place] [address]- 2546 Sep, [facility] [place] [facility] [id number], [place] [address]- 2546 07 Jul, 2010 [facility] [address], [place] [address]- 4166 Jan, [facility] [address], [place] [address]- 7956 Jun, [facility] [address], [place] [address]- 8506 Mar, [facility] [address], [place] [address]- 8516 Jan, [facility] [address], [place] [address]- 6906 December, [facility] [address], [place] [address] 2546 Oct, [facility] [address], [place] [address]- 5595 Sep, IMMUNIZATIONS No Known Immunizations SOCIAL HISTORY Never Assessed REASON FOR VISIT BP Reduction Challenge Check-in PLAN OF CARE VITAL SIGNS MEDICATIONS Medication Instructions Dosage Frequency Start Date End Date Duration Status Amlodipine Besylate 10 mg Orally Once a [...] rods 12/2016 Hospitalization History surgeries Hospitalization History [facility] ED- Back/Left Side Pain 06/06/2017 Hospitalization History [facility] ED- Congested, cough and SOB 11/07/2017
--- OUTSIDE RECORDS SUMMARY | 2018-04-20 15:55 | XMS REPORT ---
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 Active 496547116 Problem Type 2 diabetes mellitus with diabetic neuropathy, unspecified E11.40 Active 53087790 Problem Diabetes type 2, controlled E11.9 Active 33020813 Problem Type 2 diabetes mellitus with hyperglycemia E11.65 Active 678943182 Problem Controlled type 2 diabetes mellitus without complication, without long -term current use of insulin E11.9 Active 014065817 Problem Chronic fatigue R53.82 Active 56213254 Problem Mood disorder F39 Active 81449080 Problem Slow transit constipation K59.01 Active 62179968 Problem Other chronic pain G89.29 Active 69679480 Problem Diabetic mononeuropathy associated with type 2 diabetes mellitus E11.41 Active 349001706 Problem Neuropathy G62.9 Active 379980290 ALLERGIES No Information ENCOUNTERS Encounter Location Date Diagnosis [place] [id number] [address] Apr, [place] [address] [address] Mar, Seborrheic keratoses L82.1 [place] [id number] [place] [address] 35624- 9891 Mar, Type 2 diabetes mellitus with hyperglycemia E11.65 [place] [id number] [address] 0100 Feb, Seborrheic keratoses L82.1 and Type 2 diabetes mellitus with diabetic neuropathy, unspecified E11.40 [facility] [id number] [place] [address] 81449- 1829 09 Feb, 2018 Type 2 diabetes mellitus with diabetic neuropathy, unspecified E11.40 ; Renal insufficiency N28.9 and Chronic fatigue R53.82 [facility] [id number] [place] [address] 81419- 5097 Jan, Pneumonia of both lower lobes due to infectious organism J18.1 and Mood disorder F39 [facility] [id number] [place] [address] 53846- 1794 Jan, BMI 40.0-44.9, adult Z68.41 [place] [id number] [place] [address] 26022- 6509 Jan, [place] [id number] [place] [address] 28583- 0840 Jan, [facility] [id number] [place] [address] 87389 -7034 Jan, Wheezes R06.2 ; Diabetes type 2, controlled E11.9 and Pneumonia of right lower lobe due to infectious organism J18.1 [place] [id number] [place] [address] 97975- 7766 19 Jan, 2018 Renal insufficiency N28.9 [facility] [id number] [place] [address] 94738- 3699 18 Jan, 2018 Seborrheic keratoses L82.1 [facility] [id number] [place] [address] 28660- 5741 18 Jan, 2018 [facility] [id number] [place] [address] 41127- 4519 11 Jan, 2018 [facility] [id number] [place] [address] 96685- 0524 08 Jan, 2018 Renal insufficiency N28.9 [facility] [id number] [place] [address] 93878- 3484 Jan, [facility] [address] [address]- 7704 Jan, Diabetes type 2, controlled E11.9 ; Mood disorder F39 and BMI 40.0-44.9, adult Z68.41 [facility] [id number] 6779 Jan, BMI 40.0-44.9, adult Z68.41 [facility] [id number] [address]- 3375 December, [facility] [id number] [place] [address] 20087- 1477 December, [facility] [id number] [place] [address] 66442- 8632 December, Seborrheic keratoses L82.1 [facility] [id number] [address]- 5048 December, Seborrheic keratoses L82.1 [facility] [address] [address]- 9178 December, [facility] [address] [address]- 9213 December, [facility] [address] [address]- 4668 December, BMI 40.0-44.9, adult Z68.41 [facility] [address] [address]- 7381 December, [facility] [id number] 1431 December, [facility] [address] [address]- 2110 Nov, [facility] [address] [address]- 4035 Nov, [place] [id number] [place] [address] 25920- 1677 Nov, Seborrheic keratoses L82.1 [place] [address] 97446- 1944 Nov, Renal insufficiency N28.9 [place] [address] 57772- 5111 Nov, [place] [address] 25019- 2780 Nov, [place] [address] 29246- 7106 Nov, [place] [address] 34047- 8152 Nov, Type 2 diabetes mellitus with diabetic neuropathy, unspecified E11.40 ; Other chronic pain G89.29 ; Bronchitis J40 ; Renal cyst N28.1 ; Pain of left foot M79.672 and Pain in right foot M79.671 [place] [id number] [place] [address] 47055- 0851 Oct, Type 2 diabetes mellitus without complications E11.9 [place] [id number] [place] [address] 63779- 5750 Oct, SOB (shortness of breath) R06.02 [place] [address] 39170- 0822 Oct, SOB (shortness of breath) R06.02 [place] [id number] [place] [address] 90772- 2119 Sep, Type 2 diabetes mellitus without complications E11.9 [place] [id number] [place] [address] 04418- 4795 Sep, Left flank pain R10.9 [place] [address] 09216- 7199 Sep, BMI 40.0-44.9, adult Z68.41 ; Left flank pain R10.9 and Seborrheic keratoses L82.1 [facility] [address] [address]- 2762 Aug, Type 2 diabetes mellitus without complications E11.9 [facility] [address] [address]- 9310 Jul, Type 2 diabetes mellitus without complications E11.9 and Abdominal pain, left lower quadrant R10.32 [facility] [address] [id number] [address] Jun, [facility] [id number] [place] [address] 64109- 6747 Jun, Type 2 diabetes mellitus without complications E11.9 [facility] [address] [place] [address] 91010- 7057 Jun, Controlled type 2 diabetes mellitus without complication, without long-term current use of insulin E11.9 and Seborrheic keratoses L82.1 [facility] [id number] [place] [address] 36141 -6923 May, Acute back pain M54.9 [facility] [address] [address]- 3982 May, Type 2 diabetes mellitus without complications E11.9 [facility] [id number] [place] [address] 52453- 9438 Apr, Diabetes type 2, controlled E11.9 ; Lumbago with sciatica, left side M54.42 and Diabetic mononeuropathy associated with type 2 diabetes mellitus E11.41 [facility] [address] [address]- 2687 Apr, Type 2 diabetes mellitus without complications E11.9 [facility] [address] [address]- 6034 Apr, [facility] [id number] [place] [address] 29615- 9117 Mar, Type 2 diabetes mellitus without complications E11.9 [place] [id number] [place] [address] 67621- 5057 Feb, Controlled type 2 diabetes mellitus without complication, without long-term current use of insulin E11.9 ; Neuropathy G62.9 and Onychomycosis B35.1 [place] [address] [address]24- 7219 Jan, Type 2 diabetes mellitus with diabetic neuropathy, unspecified E11.40 [place] [id number] [place] [address] 89523- 2908 Jan, Type 2 diabetes mellitus with diabetic neuropathy, unspecified E11.40 [place] [id number] [place] [address] 40933- 8083 December, Type 2 diabetes mellitus without complications E11.9 [place] [id number] [place] [address] 53584- 6126 December, Slow transit constipation K59.01 and Pain in right hip M25.551 [place] [id number] [place] [address] 33020- 7054 Nov, Type 2 diabetes mellitus without complications E11.9 [place] [id number] [place] [address] 56519- 4195 Oct, Lumbago with sciatica, left side M54.42 and Other chronic pain G89.29 [place] [id number] [place] [address] 23921- 1194 Sep, Diabetes mellitus E11.9 ; Lumbago with sciatica, left side M54.42 and Type 2 diabetes mellitus without complications E11.9 [place] [id number] [place] [address] 80076- 5973 Aug, Type 2 diabetes mellitus without complications E11.9 and group home 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 [place] [address] [place] [id number] [place] [address] [id number] Aug, Dental examination Z01.20 [facility] [address] [place] [address] [id number] Aug, Dental examination Z01.20 [facility] [address] [place] [address] 97887 -2467 Aug, Dental abscess K04.7 [facility] [id number] [place] [address] 85535- 6111 Jul, Type 2 diabetes mellitus with hyperglycemia E11.65 and 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 [facility] [id number] [place] [address] 73232- 0040 Jul, [place] [id number] [place] [address] 34369- 7531 Jul, Type 2 diabetes mellitus with diabetic neuropathy, unspecified E11.40 [facility] [address] [place] [address] 06891- 8640 Jun, Type 2 diabetes mellitus with diabetic neuropathy, unspecified E11.40 and Lumbago with sciatica, left side M54.42 [facility] [address] [place] [address] 73500- 8604 May, Controlled type 2 diabetes mellitus without complication, without long-term current use of insulin E11.9 [place] [id number] [place] [address] 72438- 4052 Apr, Controlled type 2 diabetes mellitus without complication, without long-term current use of insulin E11.9 and Lumbar neuritis M54.16 [facility] [address] [place] [address] 41305- 8188 Mar, [place] [id number] [place] [address] 60078- 0238 Mar, Other chronic pain G89.29 ; Pain in left knee M25.562 ; Sciatica, left side M54.32 ; Pain in left hip M25.552 ; Type 2 diabetes mellitus with hyperglycemia E11.65 ; 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 and Mood disorder F39 [place] [id number] [place] [address] 30845- 9562 December, Diabetes type 2, controlled E11.9 [place] [id number] [place] [address] 55522- 4114 December, Diabetes type 2, controlled E11.9 [place] [address] 73751- 0485 Oct, Shoulder pain, right M25.511 and Knee pain, right M25.561 [place] [address] 54087- 3867 Oct, Knee pain, left M25.562 [place] [address] 68384- 3964 Sep, Diabetes mellitus E11.9 and Knee pain M25.569 [place] [address] 25158- 5144 Sep, [place] [address] 77990- 2700 Jun, Type 2 diabetes mellitus with diabetic neuropathy, unspecified E11.40 and Type 2 diabetes mellitus with hyperglycemia E11.65 [place] [id number] [place] [address] 13200- 9073 May, Diabetes mellitus E11.9 [place] [id number] [place] [address] 50011- 4186 May, Diabetes mellitus E11.9 and Lumbago with sciatica, left side M54.42 [place] [address] 94151- 3481 Jan, Osteoarthritis of knees, bilateral 715.96 [place] [id number] [place] [address] 35479- 4851 December, [place] [address] [place] [address]- 3404 December, Knee pain, bilateral 719.46 [facility] [address] [facility] [id number] [place] [address] 065401- 4816 Nov, Knee pain, bilateral 719.46 [facility] [address] [id number] [address]- 8299 14 Nov, 2014 [facility] [address] [facility] [id number] [place] [address] 893084- 2237 Nov, [facility] [address] [id number] [place] [address]- 1473 Oct, [facility] [address] [facility] [id number] [place] [address] 46618- 8766 Oct, [facility] [address] [place] [address] 597140- 5509 Aug, [facility] [id number] [place] [address] 84416- 2722 Aug, [facility] [id number] [address]- 4177 Jul, [facility] [id number] [address]- 5356 Jul, [facility] [address] [address]- 9259 Jun, [facility] [address] [facility] [id number] [place] [address]- 0373 Jun, [facility] [place] [facility] [address] [facility] [id number] [place] 7639 May, [facility] [place] [facility] [address] [facility] [id number] [place] 0568 May, [facility] [place] [facility] [address] [facility] [id number] [address]- 0766 15 Apr, 2014 [facility] [place] [facility] [id number] [address]- 3612 15 Apr, 2014 [facility] [place] [facility] [address] [id number] [place] [address]- 1908 08 Apr, 2014 [facility] [place] [facility] [address] [id number] [place] 8310 Apr, [facility] [place] [facility] [address] [id number] [place] [address]- 8013 Feb, [facility] [place] [facility] [address] [id number] [place] [address]- 0845 Feb, [facility] [place] [facility] [address] [id number] [place] [address]- 9269 December, [facility] [place] [facility] [address] [id number] [place] [address]- 2509 December, [facility] [place] [facility] [address] [id number] [place] [address]- 2977 December, [facility] [place] [facility] [address] [id number] [place] [address]- 4697 December, [facility] [place] [facility] [address] [id number] [place] [address]- 4362 Nov, [facility] [place] [facility] [address] [id number] [place] [address]- 9743 Nov, [facility] [place] [facility] [address] [id number] [place] [address]- 1610 Oct, [facility] [place] [facility] [address] [id number] [place] [address]- 1967 Oct, [facility] [place] [facility] [address] [id number] [place] [address]- 2168 Aug, [facility] [place] [facility] [address] [id number] [place] [address]- 3744 Aug, [facility] [place] [facility] [address] [id number] [place] [address]- 7756 Jul, [facility] [place] [facility] [address] [id number] [place] [address]- 2546 31 Jul, 2013 [facility] [address] [id number] [place] [address]- 5256 04 May, 2013 [facility] [place] [facility] [address] [id number] [place] [address]- 2546 Jan, [facility] [address] [id number] [place] [address]- 2546 Jan, [facility] [address] [id number] [place] [address]- 2546 December, [facility] [address] [id number] [place] [address]- 2546 Nov, [facility] [address] [id number] [place] [address]- 2546 25 Oct, 2012 [facility] [address] [id number] [place] [address]- 2546 19 Oct, 2012 [facility] [address] [id number] [place] [address]- 0047 14 Oct, 2012 [facility] [address] [id number] [place] [address]- 0716 11 Oct, 2012 [facility] [address] [id number] [place] [address]- 2546 07 Oct, 2012 [facility] [place] [facility] [address] [id number] [place] [address]- 2546 07 Oct, 2012 [facility] [address] [id number] [place] [address]- 2546 07 Sep, 2012 [facility] [place] [facility] [address] [id number] [place] [address]- 2546 18 Jul, 2012 [facility] [place] [facility] [address] [id number] [place] [address]- 2546 17 Jul, 2012 [facility] [address] [id number] [place] [address]- 0473 Jul, [facility] [place] [facility] [address] [id number] [place] [address]- 1828 Jun, [facility] [place] [facility] [address] [id number] [place] [address]- 8204 Jun, [facility] [place] [facility] [address] [id number] [place] [address]- 3812 Jun, [facility] [place] [facility] [address] [id number] [place] [address]- 9282 Jun, [facility] [place] [facility] [address] [id number] [place] [address]- 8182 Mar, [facility] [place] [facility] [address] [id number] [place] [address]- 5162 Mar, [facility] [place] [facility] [address] [id number] [place] [address]- 8874 Feb, [facility] [place] [facility] [address] [id number] [place] [address]- 3630 Feb, [facility] [place] [facility] [address] [id number] [place] [address]- 5945 December, [facility] [place] [facility] [address] [id number] [place] [address]- 4839 December, [facility] [place] [facility] [address] [id number] [place] [address]- 3405 Nov, [facility] [place] [facility] [address] [id number] [place] [address] 2546 Oct, [facility] [place] [facility] [address] [id number] [place] [address]- 7979 Oct, [facility] [place] [facility] [address] [id number] [place] [address]- 6096 Jul, [facility] [place] [facility] [address] [id number] [place] [address]- 2546 Sep, [facility] [place] [facility] [id number] [address]- 5236 07 Jul, 2010 [facility] [address] [address]- 4323 15 Jan, 2010 [facility] [id number] [address]- 8605 Jun, [facility] [address] [address]- 9778 Mar, [facility] [address] [address]- 9453 Jan, [facility] [address] [address]- 5617 December, [facility] [address] [address]- 1934 Oct, [facility] [address] [address]- 0430 Sep, IMMUNIZATIONS No Known Immunizations SOCIAL HISTORY Never Assessed REASON FOR VISIT Controlled Med Refill PLAN OF CARE VITAL SIGNS MEDICATIONS Medication Instructions Dosage Frequency Start Date End Date Duration Status Oxycodone-Acetaminophen 10-325 MG Orally every 6 hrs 1 tablet as needed 6h Jan, 28 days Active RESULTS No Results PROCEDURES [...] 12/2016 Hospitalization History surgeries Hospitalization History [facility] ED- Back/Left Side Pain 06/06/[address] [facility] ED- Congested, cough and SOB 11/07/2017
--- OUTSIDE RECORDS SUMMARY | 2018-04-20 15:56 | XMS REPORT ---
Author Author NISHI PALENCIA Organization 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 Active 133769951 Problem Type 2 diabetes mellitus with diabetic neuropathy, unspecified E11.40 Active 39387554 Problem Diabetes type 2, controlled E11.9 Active 18379777 Problem Type 2 diabetes mellitus with hyperglycemia E11.65 Active 375463386 Problem Controlled type 2 diabetes mellitus without complication, without long -term current use of insulin E11.9 Active 803594408 Problem Chronic fatigue R53.82 Active 39312919 Problem Mood disorder F39 Active 54788343 Problem Slow transit constipation K59.01 Active 83991106 Problem Other chronic pain G89.29 Active 66167593 Problem Diabetic mononeuropathy associated with type 2 diabetes mellitus E11.41 Active 419941102 Problem Neuropathy G62.9 Active 720804970 ALLERGIES No Information ENCOUNTERS Encounter Location Date Diagnosis [place] [id number] [address] Apr, [place] [address] [address] Mar, Seborrheic keratoses L82.1 [place] [id number] [place] [address] 56565- 2859 Mar, Type 2 diabetes mellitus with hyperglycemia E11.65 [place] [id number] [address] Feb, Seborrheic keratoses L82.1 and Type 2 diabetes mellitus with diabetic neuropathy, unspecified E11.40 [facility] [id number] [place] [address] 59638- 2488 09 Feb, 2018 Type 2 diabetes mellitus with diabetic neuropathy, unspecified E11.40 ; Renal insufficiency N28.9 and Chronic fatigue R53.82 [facility] [id number] [place] [address] 10225- 3962 Jan, Pneumonia of both lower lobes due to infectious organism J18.1 [address] Mood disorder F39 [facility] [id number] [place] [address] 48857- 2508 Jan, BMI 40.0-44.9, adult Z68.41 [place] [id number] [place] [address] 93108- 6337 Jan, [place] [id number] [place] [address] 78653- 8500 Jan, [facility] [id number] [place] [address] 52798 -2991 Jan, Wheezes R06.2 ; Diabetes type 2, controlled E11.9 and Pneumonia of right lower lobe due to infectious organism J18.1 [place] [id number] [place] [address] 61852- 0338 19 Jan, [address] [facility] [id number] [place] [address] 38174- 7595 18 Jan, [address] [facility] [id number] [place] [address] 35238- 6395 18 Jan, 2018 [facility] [id number] [place] [address] 45626- 0638 11 Jan, 2018 [facility] [id number] [place] [address] 48974- 7005 08 Jan, [address] [facility] [id number] [place] [address] 38673- 8233 Jan, [facility] [address] [address] 2407 Jan, Diabetes type 2, controlled E11.9 ; Mood disorder F39 and BMI 40.0-44.9, adult Z68.41 [facility] [id number] 6196 Jan, BMI 40.0-44.9, adult Z68.41 [facility] [id number] [address]- 0526 December, [facility] [id number] [place] [address] 80757- 2185 December, [facility] [id number] [place] [address] 47017- 3130 December, Seborrheic keratoses L82.1 [facility] [id number] [address]- 4368 December, Seborrheic keratoses L82.1 [facility] [address] [address] 7980 December, [facility] [address] [address]- 1457 December, [facility] [address] [address]- 6810 December, BMI 40.0-44.9, adult Z68.41 [facility] [address] [address]- 4467 December, [facility] [id number] 2569 December, [facility] [address] [address] 1881 Nov, [facility] [address] [address]- 2237 Nov, [place] [id number] [place] [address] 97382- 2393 Nov, Seborrheic keratoses L82.1 [place] [address] 44615- 6233 Nov, Renal insufficiency N28.9 [place] [address] 51600- 7574 Nov, [place] [address] 75114- 3750 Nov, [place] [address] 01639- 3044 Nov, [place] [address] 92904- 1730 Nov, Type 2 diabetes mellitus with diabetic neuropathy, unspecified E11.40 ; Other chronic pain G89.29 ; Bronchitis J40 ; Renal cyst N28.1 ; Pain of left foot M79.672 and Pain in right foot M79.671 [place] [id number] [place] [address] 75400- 7877 Oct, Type 2 diabetes mellitus without complications E11.9 [place] [id number] [place] [address] 92274- 2752 Oct, SOB (shortness of breath) R06.02 [place] [address] 11425- 9726 Oct, SOB (shortness of breath) R06.02 [place] [id number] [place] [address] 96279- 2318 Sep, Type 2 diabetes mellitus without complications E11.9 [place] [id number] [place] [address] 93411- 3303 Sep, Left flank pain R10.9 [place] [address] 69061- 8270 Sep, BMI 40.0-44.9, adult Z68.41 ; Left flank pain R10.9 and Seborrheic keratoses L82.1 [facility] [address] [address]- 7951 Aug, Type 2 diabetes mellitus without complications E11.9 [facility] [address] [address]- 4593 Jul, Type 2 diabetes mellitus without complications E11.9 and Abdominal pain, left lower quadrant R10.32 [facility] [address] [id number] [address] Jun, [facility] [id number] [place] [address] 38348- 4898 Jun, Type 2 diabetes mellitus without complications E11.9 [facility] [address] [place] [address] 48911- 0265 Jun, Controlled type 2 diabetes mellitus without complication, without long-term current use of insulin E11.9 and Seborrheic keratoses L82.1 [facility] [address] [place] [address] 53562 -7073 May, Acute back pain M54.9 [facility] [address] [address]- 3767 May, Type 2 diabetes mellitus without complications E11.9 [facility] [address] [place] [address] 78416- 6802 Apr, Diabetes type 2, controlled E11.9 ; Lumbago with sciatica, left side M54.42 and Diabetic mononeuropathy associated with type [address] [facility] [address] [address]- 9494 Apr, Type 2 diabetes mellitus without complications E11.9 [facility] [address] [address]- 9723 Apr, [facility] [id number] [place] [address] 98635- 7277 Mar, Type 2 diabetes mellitus without complications E11.9 [place] [id number] [place] [address] 60000- 1088 Feb, Controlled type 2 diabetes mellitus without complication, without long-term current use of insulin E11.9 ; Neuropathy G62.9 and Onychomycosis B35.1 [place] [address] 47727- 4772 Jan, Type 2 diabetes mellitus with diabetic neuropathy, unspecified E11.40 [place] [id number] [place] [address] 25145- 4544 Jan, Type 2 diabetes mellitus with diabetic neuropathy, unspecified E11.40 [place] [id number] [place] [address] 62515- 1765 December, Type 2 diabetes mellitus without complications E11.9 [place] [id number] [place] [address] 11557- 8877 December, Slow transit constipation K59.01 and Pain in right hip M25.551 [place] [id number] [place] [address] 95081- 5543 Nov, Type 2 diabetes mellitus without complications E11.9 [place] [id number] [place] [address] 13619- 5218 Oct, Lumbago with sciatica, left side M54.42 and Other chronic pain G89.29 [place] [address] [place] [address] 56996- 4824 Sep, Diabetes mellitus E11.9 ; Lumbago with sciatica, left side M54.42 and Type 2 diabetes mellitus without complications E11.9 [place] [id number] [place] [address] 62857- 6840 Aug, Type 2 diabetes mellitus without complications E11.9 and 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 [place] [address] [place] [id number] [place] [address] [id number] Aug, Dental examination Z01.20 [facility] [address] [place] [address] [id number] Aug, Dental examination Z01.20 [facility] [address] [place] [address] 27962 -2549 Aug, Dental abscess K04.7 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 [id number] [place] [address] 06326- 9955 Jul, [place] [id number] [place] [address] 81750- 4045 Jul, Type 2 diabetes mellitus with diabetic neuropathy, unspecified E11.40 [facility] [address] [place] [address] 03494- 9652 Jun, Type 2 diabetes mellitus with diabetic neuropathy, unspecified E11.40 and Lumbago with sciatica, left side M54.42 [facility] [address] [place] [address] 53389- 0226 May, Controlled type 2 diabetes mellitus without complication, without long-term current use of insulin E11.9 [place] [id number] [place] [address] 24171- 6622 Apr, Controlled type 2 diabetes mellitus without complication, without long-term current use of insulin E11.9 and Lumbar neuritis M54.16 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 and Mood disorder F39 [place] [id number] [place] [address] 03919- 3745 December, Diabetes type 2, controlled E11.9 [place] [address] [id number] [place] [address] 91875- 9549 December, Diabetes type 2, controlled E11.9 [place] [address] 75678- 2418 Oct, Shoulder pain, right M25.511 and Knee pain, right M25.561 [place] [address] 66156- 8997 Oct, Knee pain, left M25.562 [place] [address] 21597- 4481 Sep, Diabetes mellitus E11.9 and Knee pain M25.569 [place] [address] 53929- 1091 Sep, [place] [address] 35421- 8291 Jun, Type 2 diabetes mellitus with diabetic neuropathy, unspecified E11.40 and Type 2 diabetes mellitus with hyperglycemia E11.65 [place] [id number] [place] [address] 92687- 2869 May, Diabetes mellitus E11.9 [place] [id number] [place] [address] 53638- 6058 May, Diabetes mellitus E11.9 and Lumbago with sciatica, left side M54.42 [place] [address] 68523- 8887 Jan, Osteoarthritis of knees, bilateral 715.96 [place] [address] [id number] [place] [address] 58745- 6000 December, [place] [address] [place] [address]- 9188 December, Knee pain, bilateral 719.46 [facility] [address] [facility] [id number] [place] [address] 388280- 2255 Nov, Knee pain, bilateral 719.46 [facility] [address] [id number] [address]- 7031 14 Nov, 2014 [facility] [address] [facility] [id number] [place] [address] 881886- 9553 Nov, [facility] [address] [id number] [place] [address]- 5160 Oct, [facility] [address] [facility] [id number] [place] [address] 97821- 3609 Oct, [facility] [address] [place] [address] 335475- 4297 Aug, [facility] [id number] [place] [address] 92467- 8674 Aug, [facility] [id number] [address]- 9544 Jul, [facility] [id number] [address]- 3085 Jul, [facility] [address] [address]- 9173 Jun, [facility] [address] [facility] [id number] [address]- 6908 Jun, [facility] [place] [facility] [address] [facility] [id number] [place] 9057 May, [facility] [place] [facility] [address] [facility] [id number] 7901 May, [facility] [place] [facility] [address] [facility] [id number] [address]- 2254 15 Apr, 2014 [facility] [place] [facility] [id number] [address]- 3458 15 Apr, 2014 [facility] [place] [facility] [address] [id number] [place] [address]- 7572 08 Apr, 2014 [facility] [place] [facility] [address] [id number] [place] 4115 Apr, [facility] [place] [facility] [address] [id number] [place] [address]- 8860 Feb, [facility] [place] [facility] [address] [id number] [place] [address]- 0026 Feb, [facility] [place] [facility] [address] [id number] [place] [address]- 5499 December, [facility] [place] [facility] [address] [id number] [place] [address]- 7173 December, [facility] [place] [facility] [address] [id number] [place] [address]- 8975 December, [facility] [place] [facility] [address] [id number] [place] [address]- 6850 December, [facility] [place] [facility] [address] [id number] [place] [address]- 1193 Nov, [facility] [place] [facility] [address] [id number] [place] [address]- 6505 Nov, [facility] [place] [facility] [address] [id number] [place] [address]- 7561 Oct, [facility] [place] [facility] [address] [id number] [place] [address]- 4179 Oct, [facility] [place] [facility] [address] [id number] [place] [address]- 3084 Aug, [facility] [place] [facility] [address] [id number] [place] [address]- 7557 Aug, [facility] [place] [facility] [address] [id number] [place] [address]- 2083 Jul, [facility] [place] [facility] [address] [id number] [place] [address]- 2546 31 Jul, 2013 [facility] [address] [id number] [place] [address]- 3936 04 May, 2013 [facility] [place] [facility] [address] [id number] [place] [address]- 2546 Jan, [facility] [address] [id number] [place] [address]- 2546 Jan, [facility] [address] [id number] [place] [address]- 2546 December, [facility] [address] [id number] [place] [address]- 2546 Nov, [facility] [address] [id number] [place] [address]- 2546 25 Oct, 2012 [facility] [address] [id number] [place] [address]- 2546 19 Oct, 2012 [facility] [address] [id number] [place] [address]- 8668 14 Oct, 2012 [facility] [address] [id number] [place] [address]- 7246 11 Oct, 2012 [facility] [address] [id number] [place] [address]- 2546 07 Oct, 2012 [facility] [place] [facility] [address] [id number] [place] [address]- 2546 07 Oct, 2012 [facility] [address] [id number] [place] [address]- 2546 07 Sep, 2012 [facility] [place] [facility] [address] [id number] [place] [address]- 2546 18 Jul, 2012 [facility] [place] [facility] [address] [id number] [place] [address]- 2546 17 Jul, 2012 [facility] [address] [id number] [place] [address]- 2765 Jul, [facility] [place] [facility] [address] [id number] [place] [address]- 0809 Jun, [facility] [place] [facility] [address] [id number] [place] [address]- 3551 Jun, [facility] [place] [facility] [address] [id number] [place] [address]- 1260 Jun, [facility] [place] [facility] [address] [id number] [place] [address]- 8474 Jun, [facility] [place] [facility] [address] [id number] [place] [address]- 5148 Mar, [facility] [place] [facility] [address] [id number] [place] [address]- 1884 Mar, [facility] [place] [facility] [address] [id number] [place] [address]- 7386 Feb, [facility] [place] [facility] [address] [id number] [place] [address]- 2509 Feb, [facility] [place] [facility] [address] [id number] [place] [address]- 0690 December, [facility] [place] [facility] [address] [id number] [place] [address]- 9309 December, [facility] [place] [facility] [address] [id number] [place] [address]- 5362 Nov, [facility] [place] [facility] [address] [id number] [place] [address] 2546 Oct, [facility] [place] [facility] [address] [id number] [place] [address]- 0216 Oct, [facility] [place] [facility] [address] [id number] [place] [address]- 4006 Jul, [facility] [place] [facility] [address] [id number] [place] [address]- 2546 Sep, [facility] [place] [facility] [id number] [address]- 3646 07 Jul, 2010 [facility] [address] [address]- 6150 [address], [address] [facility] [address] [address]- 5804 Jun, [facility] [address] [address]- 4459 Mar, [facility] [address] [address]- 5833 Jan, [facility] [address] [address]- 3899 December, [facility] [address] [address]- 7494 Oct, [facility] [address] [address]- 0088 Sep, IMMUNIZATIONS No Known Immunizations SOCIAL HISTORY Never Assessed REASON FOR VISIT Requests return call/ PLAN OF CARE VITAL SIGNS MEDICATIONS Unknown [...] rods 12/2016 Hospitalization History surgeries Hospitalization History [facility] ED- Back/Left Side Pain 06/06/2017 Hospitalization History [facility] ED- Congested, cough and SOB 11/07/2017
--- OUTSIDE RECORDS SUMMARY | 2018-04-20 15:56 | XMS REPORT ---
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 Active 276227081 Problem Type 2 diabetes mellitus with diabetic neuropathy, unspecified E11.40 Active 26117211 Problem Diabetes type 2, controlled E11.9 Active 68422893 Problem Type 2 diabetes mellitus with hyperglycemia E11.65 Active 507495962 Problem Controlled type 2 diabetes mellitus without complication, without long -term current use of insulin E11.9 Active 805070093 Problem Chronic fatigue R53.82 Active 69477237 Problem Mood disorder F39 Active 16518310 Problem Slow transit constipation K59.01 Active 77180813 Problem Other chronic pain G89.29 Active 81432998 Problem Diabetic mononeuropathy associated with type 2 diabetes mellitus E11.41 Active 441607909 Problem Neuropathy G62.9 Active 245680525 ALLERGIES No Information ENCOUNTERS Encounter Location Date Diagnosis [place] [id number], [place] [address] Apr, [place] [address], [place] [address] Mar, Seborrheic keratoses L82.1 [place] [id number] [place] [address] 13309- 1494 Mar, Type 2 diabetes mellitus with hyperglycemia E11.65 [place] [id number], [place] [address] 89[address] Feb, Seborrheic keratoses L82.1 and Type 2 diabetes mellitus with diabetic neuropathy, unspecified E11.40 [facility] [id number] [place] [address] 82077- 3544 09 Feb, 2018 Type 2 diabetes mellitus with diabetic neuropathy, unspecified E11.40 ; Renal insufficiency N28.9 and Chronic fatigue R53.82 [facility] [id number] [place] [address] 23650- 3534 Jan, Pneumonia of both lower lobes due to infectious organism J18.1 and Mood disorder F39 [facility] [id number] [place] [address] 64437- 1940 Jan, BMI 40.0-44.9, adult Z68.41 [place] [id number] [place] [address] 26007- 7979 Jan, [place] [id number] [place] [address] 47318- 1320 Jan, [facility] [id number] [place] [address] 35178 -7926 Jan, Wheezes R06.2 ; Diabetes type 2, controlled E11.9 and Pneumonia of right lower lobe due to infectious organism J18.1 [place] [id number] [place] [address] 87789- 2045 19 Jan, 2018 Renal insufficiency N28.9 [facility] [id number] [place] [address] 36115- 1501 18 Jan, 2018 Seborrheic keratoses L82.1 [facility] [id number] [place] [address] 28803- 7061 18 Jan, 2018 [facility] [id number] [place] [address] 79981- 7529 11 Jan, 2018 [facility] [id number] [place] [address] 97473- 3296 08 Jan, 2018 Renal insufficiency N28.9 [facility] [id number] [place] [address] 30470- 1609 Jan, [facility] [address], [place] [address]- 4545 Jan, Diabetes type 2, controlled E11.9 ; Mood disorder F39 and BMI 40.0-44.9, adult Z68.41 [facility] [id number] 3784 Jan, BMI 40.0-44.9, adult Z68.41 [facility] [id number], [place] [address]- 7460 December, [facility] [id number] [place] [address] 21239- 8896 December, [facility] [id number] [place] [address] 74260- 3765 December, Seborrheic keratoses L82.1 [facility] [id number], [place] [address]- 2815 December, Seborrheic keratoses L82.1 [facility] [address], [place] [address]- 6044 December, [facility] [address], [place] [address]- 8243 December, [facility] [address], [place] [address]- 9802 December, BMI 40.0-44.9, adult Z68.41 [facility] [address], [place] [address]- 8332 December, [facility] [id number] 6029 December, [facility] [address], [place] [address]- 4624 Nov, [facility] [address], [place] [address]- 3095 Nov, [place] [id number] [place] [address] 45319- 5220 Nov, Seborrheic keratoses L82.1 [place] [address] 61396- 2892 Nov, Renal insufficiency N28.9 [place] [address] 11563- 2631 Nov, [place] [address] 76066- 7344 Nov, [place] [address] 73298- 0899 Nov, [place] [address] 66049- 9509 Nov, Type 2 diabetes mellitus with diabetic neuropathy, unspecified E11.40 ; Other chronic pain G89.29 ; Bronchitis J40 ; Renal cyst N28.1 ; Pain of left foot M79.672 and Pain in right foot M79.671 [place] [id number] [place] [address] 66120- 9922 Oct, Type 2 diabetes mellitus without complications E11.9 [place] [id number] [place] [address] 17914- 5596 Oct, SOB (shortness of breath) R06.02 [place] [address] 02043- 7355 Oct, SOB (shortness of breath) R06.02 [place] [id number] [place] [address] 79929- 5267 Sep, Type 2 diabetes mellitus without complications E11.9 [place] [id number] [place] [address] 67542- 1555 Sep, Left flank pain R10.9 [place] [address] 82212- 3995 Sep, BMI 40.0-44.9, adult Z68.41 ; Left flank pain R10.9 and Seborrheic keratoses L82.1 [facility] [address], [place] [address]- 2642 Aug, Type 2 diabetes mellitus without complications E11.9 [facility] [address], [place] [address]- 0390 Jul, Type 2 diabetes mellitus without complications E11.9 and Abdominal pain, left lower quadrant R10.32 [facility] [address] [place] [address] Jun, [facility] [id number] [place] [address] 30002- 2613 Jun, Type 2 diabetes mellitus without complications E11.9 [facility] [address] [place] [address] 54037- 8824 Jun, Controlled type 2 diabetes mellitus without complication, without long-term current use of insulin E11.9 and Seborrheic keratoses L82.1 [facility] [address] [place] [address] 65166 -1212 May, Acute back pain M54.9 [facility] [address], [place] [address]- 9120 May, Type 2 diabetes mellitus without complications E11.9 [facility] [address] [place] [address] 26964- 0186 Apr, Diabetes type 2, controlled E11.9 ; Lumbago with sciatica, left side M54.42 and Diabetic mononeuropathy associated with type 2 diabetes mellitus E11.41 [facility] [address], [place] [address]- 2463 Apr, Type 2 diabetes mellitus without complications E11.9 [facility] [address], [place] [address]- 9179 Apr, [facility] [id number] [place] [address] 14468- 3202 Mar, Type 2 diabetes mellitus without complications E11.9 [place] [id number] [place] [address] 97656- 1289 Feb, Controlled type 2 diabetes mellitus without complication, without long-term current use of insulin E11.9 ; Neuropathy G62.9 and Onychomycosis B35.1 [place] [address] 84004- 0638 Jan, Type 2 diabetes mellitus with diabetic neuropathy, unspecified E11.40 [place] [id number] [place] [address] 37866- 0219 Jan, Type 2 diabetes mellitus with diabetic neuropathy, unspecified E11.40 [place] [id number] [place] [address] 68471- 7651 December, Type 2 diabetes mellitus without complications E11.9 [place] [id number] [place] [address] 89372- 2662 December, Slow transit constipation K59.01 and Pain in right hip M25.551 [place] [id number] [place] [address] 78274- 5314 Nov, Type 2 diabetes mellitus without complications E11.9 [place] [id number] [place] [address] 84188- 7377 Oct, Lumbago with sciatica, left side M54.42 and Other chronic pain G89.29 [place] [id number] [place] [address] 33082- 7764 Sep, Diabetes mellitus E11.9 ; Lumbago with sciatica, left side M54.42 and Type 2 diabetes mellitus without complications E11.9 [place] [id number] [place] [address] 16487- 9108 Aug, Type 2 diabetes mellitus without complications E11.9 and 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 [place] [address] [place] [id number] [place] [address] [id number] Aug, Dental examination Z01.20 [facility] [address] [place] [address] [id number] Aug, Dental examination Z01.20 [facility] [address] [place] [address] 23030 -7294 Aug, Dental abscess K04.7 [facility] [id number] [place] [address] 59681- 5390 Jul, Type 2 diabetes mellitus with hyperglycemia E11.65 and 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 [facility] [id number] [place] [address] 18790- 8100 Jul, [place] [id number] [place] [address] 54316- 7789 Jul, Type 2 diabetes mellitus with diabetic neuropathy, unspecified E11.40 [facility] [address] [place] [address] 77866- 1292 Jun, Type 2 diabetes mellitus with diabetic neuropathy, unspecified E11.40 and Lumbago with sciatica, left side M54.42 [facility] [address] [place] [address] 40073- 8210 May, Controlled type 2 diabetes mellitus without complication, without long-term current use of insulin E11.9 [place] [id number] [place] [address] 34520- 6244 Apr, Controlled type 2 diabetes mellitus without complication, without long-term current use of insulin E11.9 and Lumbar neuritis M54.16 [facility] [address] [place] [address] 35660- 1608 Mar, [place] [id number] [place] [address] 90228- 1076 Mar, Other chronic pain G89.29 ; Pain in left knee M25.562 ; Sciatica, left side M54.32 ; Pain in left hip M25.552 ; Type 2 diabetes mellitus with hyperglycemia E11.65 ; 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 and Mood disorder F39 [place] [id number] [place] [address] 93589- 4553 December, Diabetes type 2, controlled E11.9 [place] [id number] [place] [address] 95078- 1715 December, Diabetes type 2, controlled E11.9 [place] [address] 72735- 9576 Oct, Shoulder pain, right M25.511 and Knee pain, right M25.561 [place] [address] 61496- 4448 Oct, Knee pain, left M25.562 [place] [address] 08417- 6389 Sep, Diabetes mellitus E11.9 and Knee pain M25.569 [place] [address] 46851- 3453 Sep, [place] [address] 25097- 2606 Jun, Type 2 diabetes mellitus with diabetic neuropathy, unspecified E11.40 and Type 2 diabetes mellitus with hyperglycemia E11.65 [place] [id number] [place] [address] 63807- 1608 May, Diabetes mellitus E11.9 [place] [id number] [place] [address] 24221- 2827 May, Diabetes mellitus E11.9 and Lumbago with sciatica, left side M54.42 [place] [address] 30487- 4980 Jan, Osteoarthritis of knees, bilateral 715.96 [place] [id number] [place] [address] 68745- 1638 December, [place] [address] [place] [address]- 0564 December, Knee pain, bilateral 719.46 [facility] [address] [facility] [id number] [place] [address] 830239- 0807 Nov, Knee pain, bilateral 719.46 [facility] [address] [id number] [address]- 6817 14 Nov, 2014 [facility] [address] [facility] [id number] [place] [address] 918840- 2323 Nov, [facility] [address] [id number] [place] [address]- 8753 Oct, [facility] [address] [facility] [id number] [place] [address] 98282- 2415 Oct, [facility] [address] [place] [address] 765590- 4633 Aug, [facility] [id number] [place] [address] 88545- 6556 Aug, [facility] [id number], [place] [address]- 6369 Jul, [facility] [id number], [place] [address]- 1355 Jul, [facility] [address], [place] [address]- 2925 Jun, [facility] [address] [facility] [id number], [place] [address]- 7171 Jun, [facility] [place] [facility] [address] [facility] [id number] 0980 May, [facility] [place] [facility] [address] [facility] [id number] 9865 May, [facility] [place] [facility] [address] [facility] [id number], [place] [address]- 0643 15 Apr, 2014 [facility] [place] [facility] [id number], [place] [address]- 1149 15 Apr, 2014 [facility] [place] [facility] [address] [id number] [place] [address]- 7111 08 Apr, 2014 [facility] [place] [facility] [address] [id number] [place] 7167 Apr, [facility] [place] [facility] [address] [id number] [place] [address]- 2535 Feb, [facility] [place] [facility] [address] [id number] [place] [address]- 4267 Feb, [facility] [place] [facility] [address] [id number] [place] [address]- 5313 December, [facility] [place] [facility] [address] [id number] [place] [address]- 5315 December, [facility] [place] [facility] [address] [id number] [place] [address]- 6154 December, [facility] [place] [facility] [address] [id number] [place] [address]- 3611 December, [facility] [place] [facility] [address] [id number] [place] [address]- 4254 Nov, [facility] [place] [facility] [address] [id number] [place] [address]- 9474 Nov, [facility] [place] [facility] [address] [id number] [place] [address]- 8410 Oct, [facility] [place] [facility] [address] [id number] [place] [address]- 7788 Oct, [facility] [place] [facility] [address] [id number] [place] [address]- 6732 Aug, [facility] [place] [facility] [address] [id number] [place] [address]- 7714 Aug, [facility] [place] [facility] [address] [id number] [place] [address]- 2672 Jul, [facility] [place] [facility] [address] [id number] [place] [address]- 2546 31 Jul, 2013 [facility] [address] [id number] [place] [address]- 5016 04 May, 2013 [facility] [place] [facility] [address] [id number] [place] [address]- 2546 Jan, [facility] [address] [id number] [place] [address]- 2546 Jan, [facility] [address] [id number] [place] [address]- 2546 December, [facility] [address] [id number] [place] [address]- 2546 Nov, [facility] [address] [id number] [place] [address]- 2546 25 Oct, 2012 [facility] [address] [id number] [place] [address]- 2546 19 Oct, 2012 [facility] [address] [id number] [place] [address]- 7342 14 Oct, 2012 [facility] [address] [id number] [place] [address]- 7476 11 Oct, 2012 [facility] [address] [id number] [place] [address]- 2546 07 Oct, 2012 [facility] [place] [facility] [address] [id number] [place] [address]- 2546 07 Oct, 2012 [facility] [address] [id number] [place] [address]- 2546 07 Sep, 2012 [facility] [place] [facility] [address] [id number] [place] [address]- 2546 18 Jul, 2012 [facility] [place] [facility] [address] [id number] [place] [address]- 2546 17 Jul, 2012 [facility] [address] [id number] [place] [address]- 5485 Jul, [facility] [place] [facility] [address] [id number] [place] [address]- 5973 Jun, [facility] [place] [facility] [address] [id number] [place] [address]- 0872 Jun, [facility] [place] [facility] [address] [id number] [place] [address]- 2924 Jun, [facility] [place] [facility] [address] [id number] [place] [address]- 0751 Jun, [facility] [place] [facility] [address] [id number] [place] [address]- 8962 Mar, [facility] [place] [facility] [address] [id number] [place] [address]- 9260 Mar, [facility] [place] [facility] [address] [id number] [place] [address]- 4923 Feb, [facility] [place] [facility] [address] [id number] [place] [address]- 7432 Feb, [facility] [place] [facility] [address] [id number] [place] [address]- 2019 December, [facility] [place] [facility] [address] [id number] [place] [address]- 3536 December, [facility] [place] [facility] [address] [id number] [place] [address]- 2667 Nov, [facility] [place] [facility] [address] [id number] [place] [address] 2546 Oct, [facility] [place] [facility] [address] [id number] [place] [address]- 8467 Oct, [facility] [place] [facility] [address] [id number] [place] [address]- 8996 Jul, [facility] [place] [facility] [address] [id number] [place] [address]- 2546 Sep, [facility] [place] [facility] [id number], [place] [address] 2546 07 Jul, 2010 [facility] [address], [place] [address]- 4022 15 Jan, 2010 [facility] [address], [place] [address]- 2123 Jun, [facility] [address], [place] [address]- 6712 Mar, [facility] [address], [place] [address]- 0309 Jan, [facility] [address], [place] [address]- 5928 December, [facility] [address], [place] [address]- 3919 Oct, [facility] [address], [place] [address]- 3593 Sep, IMMUNIZATIONS No Known Immunizations SOCIAL HISTORY Never Assessed REASON FOR VISIT BP Reduction Challenge Check-in PLAN OF CARE VITAL SIGNS MEDICATIONS Unknown [...] rods 12/2016 Hospitalization History surgeries Hospitalization History [facility] ED- Back/Left Side Pain 06/06/2017 Hospitalization History [facility] ED- Congested, cough and SOB 11/07/2017
--- OUTSIDE RECORDS SUMMARY | 2018-04-20 15:57 | XMS REPORT ---
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 Active 101574575 Problem Type 2 diabetes mellitus with diabetic neuropathy, unspecified E11.40 Active 72892643 Problem Diabetes type 2, controlled E11.9 Active 81357555 Problem Type 2 diabetes mellitus with hyperglycemia E11.65 Active 008077369 Problem Controlled type 2 diabetes mellitus without complication, without long -term current use of insulin E11.9 Active 470215206 Problem Chronic fatigue R53.82 Active 30245130 Problem Mood disorder F39 Active 74601045 Problem Slow transit constipation K59.01 Active 86815814 Problem Other chronic pain G89.29 Active 28851657 Problem Diabetic mononeuropathy associated with type 2 diabetes mellitus E11.41 Active 695862752 Problem Neuropathy G62.9 Active 818992575 ALLERGIES No Information ENCOUNTERS Encounter Location Date Diagnosis [place] [id number] [address] Apr, [place] [id number] [address] Mar, Seborrheic keratoses L82.1 [place] [id number] [place] [address] 00560- 6088 Mar, Type 2 diabetes mellitus with hyperglycemia E11.65 [place] [id number] [address] Feb, Seborrheic keratoses L82.1 and Type 2 diabetes mellitus with diabetic neuropathy, unspecified E11.40 [facility] [id number] [place] [address] 57496- 3866 09 Feb, 2018 Type 2 diabetes mellitus with diabetic neuropathy, unspecified E11.40 ; Renal insufficiency N28.9 and Chronic fatigue R53.82 [facility] [id number] [place] [address] 08524- 5983 Jan, Pneumonia of both lower lobes due to infectious organism J18.1 and Mood disorder F39 [facility] [id number] [place] [address] 86048- 6028 Jan, BMI 40.0-44.9, adult Z68.41 [place] [id number] [place] [address] 48229- 1453 Jan, [place] [id number] [place] [address] 46169- 1248 Jan, [facility] [id number] [place] [address] 66739 -5463 Jan, Wheezes R06.2 ; Diabetes type 2, controlled E11.9 and Pneumonia of right lower lobe due to infectious organism J18.1 [place] [id number] [place] [address] 20959- 4305 19 Jan, 2018 Renal insufficiency N28.9 [facility] [id number] [place] [address] 08933- 4442 18 Jan, 2018 Seborrheic keratoses L82.1 [facility] [id number] [place] [address] 83107- 7335 18 Jan, 2018 [facility] [id number] [place] [address] 09770- 8705 11 Jan, 2018 [facility] [id number] [place] [address] 78330- 1609 08 Jan, 2018 Renal insufficiency N28.9 [facility] [id number] [place] [address] 57397- 7682 Jan, [facility] [address] [address] 1355 Jan, Diabetes type 2, controlled E11.9 ; Mood disorder F39 and BMI 40.0-44.9, adult Z68.41 [facility] [id number] 1235 Jan, BMI 40.0-44.9, adult Z68.41 [facility] [id number] [address]- 1181 December, [facility] [id number] [place] [address] 60267- 7149 December, [facility] [id number] [place] [address] 39432- 8454 December, Seborrheic keratoses L82.1 [facility] [id number] [address]- 7082 December, Seborrheic keratoses L82.1 [facility] [address] [address]- 3228 December, [facility] [address] [address]- 3558 December, [facility] [address] [address]- 0107 December, BMI 40.0-44.9, adult Z68.41 [facility] [address] [address]- 4122 December, [facility] [id number] 4817 December, [facility] [address] [address]- 8069 Nov, [facility] [address] [address]- 5311 Nov, [place] [id number] [place] [address] 52245- 5945 Nov, Seborrheic keratoses L82.1 [place] [address] 70180- 8031 Nov, Renal insufficiency N28.9 [place] [address] 88781- 6712 Nov, [place] [address] 34250- 1467 Nov, [place] [address] 99327- 5491 Nov, [place] [address] 06717- 3453 Nov, Type 2 diabetes mellitus with diabetic neuropathy, unspecified E11.40 ; Other chronic pain G89.29 ; Bronchitis J40 ; Renal cyst N28.1 ; Pain of left foot M79.672 and Pain in right foot M79.671 [place] [id number] [place] [address] 17106- 1359 Oct, Type 2 diabetes mellitus without complications E11.9 [place] [id number] [place] [address] 96320- 9491 Oct, SOB (shortness of breath) R06.02 [place] [address] 43896- 6590 Oct, SOB (shortness of breath) R06.02 [place] [id number] [place] [address] 56743- 0794 Sep, Type 2 diabetes mellitus without complications E11.9 [place] [id number] [place] [address] 56878- 0612 Sep, Left flank pain R10.9 [place] [address] 88723- 5262 Sep, BMI 40.0-44.9, adult Z68.41 ; Left flank pain R10.9 and Seborrheic keratoses L82.1 [facility] [address] [address]- 5197 Aug, Type 2 diabetes mellitus without complications E11.9 [facility] [address] [address]- 0334 Jul, Type 2 diabetes mellitus without complications E11.9 and Abdominal pain, left lower quadrant R10.32 [facility] [address] [id number] [address] Jun, [facility] [id number] [place] [address] 68755- 0470 Jun, Type 2 diabetes mellitus without complications E11.9 [facility] [address] [place] [address] 98171- 1598 Jun, Controlled type 2 diabetes mellitus without complication, without long-term current use of insulin E11.9 and Seborrheic keratoses L82.1 [facility] IN [facility] [id number] [place] [address] 18836 -3312 May, Acute back pain M54.9 [facility] [address] [address]- 3113 May, Type 2 diabetes mellitus without complications E11.9 [facility] [id number] [place] [address] 57051- 5007 Apr, Diabetes type 2, controlled E11.9 ; Lumbago with sciatica, left side M54.42 and Diabetic mononeuropathy associated with type 2 diabetes mellitus E11.41 [facility] [address] [address]- 1061 Apr, Type 2 diabetes mellitus without complications E11.9 [facility] [address] [address]- 8660 Apr, [facility] [id number] [place] [address] 18347- 5250 Mar, Type 2 diabetes mellitus without complications E11.9 [place] [id number] [place] [address] 15517- 1046 Feb, Controlled type 2 diabetes mellitus without complication, without long-term current use of insulin E11.9 ; Neuropathy G62.9 and Onychomycosis B35.1 [place] [address] 10905- 8574 Jan, Type 2 diabetes mellitus with diabetic neuropathy, unspecified E11.40 [place] [id number] [place] [address] 97103- 2908 Jan, Type 2 diabetes mellitus with diabetic neuropathy, unspecified E11.40 [place] [id number] [place] [address] 21851- 6643 December, Type 2 diabetes mellitus without complications E11.9 [place] [id number] [place] [address] 81707- 9207 December, Slow transit constipation K59.01 and Pain in right hip M25.551 [place] [id number] [place] [address] 31796- 3164 Nov, Type 2 diabetes mellitus without complications E11.9 [place] [id number] [place] [address] 12607- 7926 Oct, Lumbago with sciatica, left side M54.42 and Other chronic pain G89.29 [place] [id number] [place] [address] 70827- 8465 Sep, Diabetes mellitus E11.9 ; Lumbago with sciatica, left side M54.42 and Type 2 diabetes mellitus without complications E11.9 [place] [id number] [place] [address] 48501- 8504 Aug, Type 2 diabetes mellitus without complications E11.9 and custodial 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 [place] [address] [place] [address] [id number] [place] [address] [id number] Aug, Dental examination Z01.20 [facility] [address] [place] [address] [id number] Aug, Dental examination Z01.20 [facility] [id number] [place] [address] 15385 -3515 Aug, Dental abscess K04.7 [facility] [id number] [place] [address] 02030- 8802 Jul, Type 2 diabetes mellitus with hyperglycemia E11.65 and 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 [facility] [id number] [place] [address] 46251- 9948 Jul, [place] [id number] [place] [address] 16299- 4295 Jul, Type 2 diabetes mellitus with diabetic neuropathy, unspecified E11.40 [facility] [address] [place] [address] 88546- 9691 Jun, Type 2 diabetes mellitus with diabetic neuropathy, unspecified E11.40 and Lumbago with sciatica, left side M54.42 [facility] [address] [place] [address] 12923- 6091 May, Controlled type 2 diabetes mellitus without complication, without long-term current use of insulin E11.9 [place] [id number] [place] [address] 90593- 4534 Apr, Controlled type 2 diabetes mellitus without complication, without long-term current use of insulin E11.9 and Lumbar neuritis M54.16 [facility] [address] [place] [address] 87064- 3437 Mar, [place] [id number] [place] [address] 71598- 6824 Mar, Other chronic pain G89.29 ; Pain in left knee M25.562 ; Sciatica, left side M54.32 ; Pain in left hip M25.552 ; Type 2 diabetes mellitus with hyperglycemia E11.65 ; 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 and Mood disorder F39 [place] [id number] [place] [address] 98133- 5762 December, Diabetes type 2, controlled E11.9 [place] [id number] [place] [address] 77616- 8387 December, Diabetes type 2, controlled E11.9 [place] [address] 32698- 3421 Oct, Shoulder pain, right M25.511 and Knee pain, right M25.561 [place] [address] 89260- 8126 Oct, Knee pain, left M25.562 [place] [address] 76171- 4599 Sep, Diabetes mellitus E11.9 and Knee pain M25.569 [place] [address] 63563- 2628 Sep, [place] [address] 51820- 5499 Jun, Type 2 diabetes mellitus with diabetic neuropathy, unspecified E11.40 and Type 2 diabetes mellitus with hyperglycemia E11.65 [place] [id number] [place] [address] 12452- 3419 May, Diabetes mellitus E11.9 [place] [id number] [place] [address] 79424- 1815 May, Diabetes mellitus E11.9 and Lumbago with sciatica, left side M54.42 [place] [address] 13339- 4355 Jan, Osteoarthritis of knees, bilateral 715.96 [place] [id number] [place] [address] 62688- 0835 December, [place] [address] [place] [address]- 7782 December, Knee pain, bilateral 719.46 [facility] [address] [facility] [id number] [place] [address] 838490- 7847 Nov, Knee pain, bilateral 719.46 [facility] [address] [id number] [address]- 1108 14 Nov, 2014 [facility] [address] [facility] [id number] [place] [address] 588137- 7819 Nov, [facility] [address] [id number] [place] [address]- 2682 Oct, [facility] [address] [facility] [id number] [place] [address] 39381- 9998 Oct, [facility] [id number] [place] [address] 094103- 6271 Aug, [facility] [id number] [place] [address] 36710- 8289 Aug, [facility] [id number] [address]- 7906 Jul, [facility] [id number] [address]- 4436 Jul, [facility] [address] [address]- 6662 Jun, [facility] [address] [facility] [id number] [address]- 9417 Jun, [facility] [place] [facility] [address] [facility] [id number]- 8240 May, [facility] [place] [facility] [address] [facility] [id number] 4626 May, [facility] [place] [facility] [address] [facility] [id number] [address]- 0406 15 Apr, 2014 [facility] [place] [facility] [id number] [address]- 4848 15 Apr, 2014 [facility] [place] [facility] [address] [id number] [place] [address]- 6249 08 Apr, 2014 [facility] [place] [facility] [address] [id number] [place] [address] Apr, [facility] [place] [facility] [address] [id number] [place] [address]- 7056 Feb, [facility] [place] [facility] [address] [id number] [place] [address]- 6847 Feb, [facility] [place] [facility] [address] [id number] [place] [address]- 0810 December, [facility] [place] [facility] [address] [id number] [place] [address]- 0203 December, [facility] [place] [facility] [address] [id number] [place] [address]- 1959 December, [facility] [place] [facility] [address] [id number] [place] [address]- 6407 December, [facility] [place] [facility] [address] [id number] [place] [address]- 4827 Nov, [facility] [place] [facility] [address] [id number] [place] [address]- 6048 Nov, [facility] [place] [facility] [address] [id number] [place] [address]- 4211 Oct, [facility] [place] [facility] [address] [id number] [place] [address]- 7655 Oct, [facility] [place] [facility] [address] [id number] [place] [address]- 5168 Aug, [facility] [place] [facility] [address] [id number] [place] [address]- 4628 Aug, [facility] [place] [facility] [address] [id number] [place] [address]- 4890 Jul, [facility] [place] [facility] [address] [id number] [place] [address]- 2546 31 Jul, 2013 [facility] [address] [id number] [place] [address]- 4596 04 May, 2013 [facility] [place] [facility] [address] [id number] [place] [address]- 2546 Jan, [facility] [address] [id number] [place] [address]- 2546 Jan, [facility] [address] [id number] [place] [address]- 2546 December, [facility] [address] [id number] [place] [address]- 2546 Nov, [facility] [address] [id number] [place] [address]- 2546 25 Oct, 2012 [facility] [address] [id number] [place] [address]- 2546 19 Oct, 2012 [facility] [address] [id number] [place] [address]- 1801 14 Oct, 2012 [facility] [address] [id number] [place] [address]- 3786 11 Oct, 2012 [facility] [address] [id number] [place] [address]- 2546 07 Oct, 2012 [facility] [place] [facility] [address] [id number] [place] [address]- 2546 07 Oct, 2012 [facility] [address] [id number] [place] [address]- 2546 07 Sep, 2012 [facility] [place] [facility] [address] [id number] [place] [address]- 2546 18 Jul, 2012 [facility] [place] [facility] [address] [id number] [place] [address]- 2546 17 Jul, 2012 [facility] [address] [id number] [place] [address]- 7439 Jul, [facility] [place] [facility] [address] [id number] [place] [address]- 7882 Jun, [facility] [place] [facility] [address] [id number] [place] [address]- 5062 Jun, [facility] [place] [facility] [address] [id number] [place] [address]- 1268 Jun, [facility] [place] [facility] [address] [id number] [place] [address]- 2892 Jun, [facility] [place] [facility] [address] [id number] [place] [address]- 6195 Mar, [facility] [place] [facility] [address] [id number] [place] [address]- 0529 Mar, [facility] [place] [facility] [address] [id number] [place] [address]- 4891 Feb, [facility] [place] [facility] [address] [id number] [place] [address]- 7962 Feb, [facility] [place] [facility] [address] [id number] [place] [address]- 8905 December, [facility] [place] [facility] [address] [id number] [place] [address]- 0262 December, [facility] [place] [facility] [address] [id number] [place] [address]- 6300 Nov, [facility] [place] [facility] [address] [id number] [place] [address] 2546 Oct, [facility] [place] [facility] [address] [id number] [place] [address]- 6785 Oct, [facility] [place] [facility] [address] [id number] [place] [address]- 7876 Jul, [facility] [place] [facility] [address] [id number] [place] [address]- 2546 Sep, [facility] [place] [facility] [address] [facility] [id number] [address] 2546 07 Jul, 2010 [facility] [id number] [address]- 1251 15 Jan, 2010 [facility] [id number] [address]- 3166 Jun, [facility] [address] [address]- 6096 Mar, [facility] [address] [address]- 3489 Jan, [facility] [address] [address]- 1308 December, [facility] [address] [address]- 3048 Oct, [facility] [address] [address]- 1107 Sep, IMMUNIZATIONS No Known Immunizations SOCIAL HISTORY Never Assessed REASON FOR VISIT BP Reduction Challenge BP F/U PLAN OF CARE VITAL SIGNS Height 67 in 2018-01-10 Weight 277.2 lbs 2018-01-10 BMI 43.41 kg/m2 2018-01-10 Blood pressure systolic 142 mmHg 2018-01-10 Blood pressure diastolic 90 mmHg 2018-01-10 MEDICATIONS Unknown Medications RESULTS No Results PROCEDURES [...] rods 12/2016 Hospitalization History surgeries Hospitalization History [facility], operated by [facility]- Back/Left Side Pain 06/06/2017 Hospitalization History [facility], operated by [facility]- Congested, cough and SOB 11/07/2017
--- OUTSIDE RECORDS SUMMARY | 2018-04-20 15:57 | XMS REPORT ---
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 Active 548850418 Problem Type 2 diabetes mellitus with diabetic neuropathy, unspecified E11.40 Active 83744079 Problem Diabetes type 2, controlled E11.9 Active 50093995 Problem Type 2 diabetes mellitus with hyperglycemia E11.65 Active 849903675 Problem Controlled type 2 diabetes mellitus without complication, without long -term current use of insulin E11.9 Active 931984510 Problem Chronic fatigue R53.82 Active 57908398 Problem Mood disorder F39 Active 76932270 Problem Slow transit constipation K59.01 Active 12836262 Problem Other chronic pain G89.29 Active 14746724 Problem Diabetic mononeuropathy associated with type 2 diabetes mellitus E11.41 Active 242573932 Problem Neuropathy G62.9 Active [id number] ALLERGIES No Information ENCOUNTERS Encounter Location Date Diagnosis [place] [id number], [place] [address] Apr, [place] [address], [place] [address] Mar, Seborrheic keratoses L82.1 [place] [id number] [place] [address] 15150- 6867 Mar, Type 2 diabetes mellitus with hyperglycemia E11.65 [place] [id number], [place] [address] 75[address] Feb, Seborrheic keratoses L82.1 and Type 2 diabetes mellitus with diabetic neuropathy, unspecified E11.40 [facility] [id number] [place] [address] 94070- 9262 09 Feb, 2018 Type 2 diabetes mellitus with diabetic neuropathy, unspecified E11.40 ; Renal insufficiency N28.9 and Chronic fatigue R53.82 [facility] [id number] [place] [address] 17987- 5572 Jan, Pneumonia of both lower lobes due to infectious organism J18.1 and Mood disorder F39 [facility] [id number] [place] [address] 61867- 0686 Jan, BMI 40.0-44.9, adult Z68.41 [place] [id number] [place] [address] 93021- 6498 Jan, [place] [id number] [place] [address] 32963- 9738 Jan, [facility] [id number] [place] [address] 64877 -2569 Jan, Wheezes R06.2 ; Diabetes type 2, controlled E11.9 and Pneumonia of right lower lobe due to infectious organism J18.1 [place] [id number] [place] [address] 76570- 6085 19 Jan, 2018 Renal insufficiency N28.9 [facility] [id number] [place] [address] 95745- 7536 18 Jan, 2018 Seborrheic keratoses L82.1 [facility] [id number] [place] [address] 44268- 6144 18 Jan, 2018 [facility] [id number] [place] [address] 35288- 5290 11 Jan, 2018 [facility] [id number] [place] [address] 84656- 6964 08 Jan, 2018 Renal insufficiency N28.9 [facility] [id number] [place] [address] 90600- 0118 Jan, [facility] [address], [place] [address]- 8160 Jan, Diabetes type 2, controlled E11.9 ; Mood disorder F39 and BMI 40.0-44.9, adult Z68.41 [facility] [id number] 5486 Jan, BMI 40.0-44.9, adult Z68.41 [facility] [id number], [place] [address]- 6376 December, [facility] [id number] [place] [address] 76627- 8621 December, [facility] [id number] [place] [address] 28460- 4150 December, Seborrheic keratoses L82.1 [facility] [id number], [place] [address] 3266 December, Seborrheic keratoses L82.1 [facility] [address], [place] [address]- 8415 December, [facility] [address], [place] [address]- 5978 December, [facility] [address], [place] [address]- 7920 December, BMI 40.0-44.9, adult Z68.41 [facility] [address], [place] [address]- 2296 December, [facility] [id number] 5489 December, [facility] [address], [place] [address]- 9333 Nov, [facility] [address], [place] [address]- 5334 Nov, [place] [id number] [place] [address] 53479- 7135 Nov, Seborrheic keratoses L82.1 [place] [address] 65743- 0980 Nov, Renal insufficiency N28.9 [place] [address] 16584- 2260 Nov, [place] [address] 98707- 4785 Nov, [place] [address] 85342- 4563 Nov, [place] [address] 36387- 0313 Nov, Type 2 diabetes mellitus with diabetic neuropathy, unspecified E11.40 ; Other chronic pain G89.29 ; Bronchitis J40 ; Renal cyst N28.1 ; Pain of left foot M79.672 and Pain in right foot M79.671 [place] [id number] [place] [address] 26643- 7116 Oct, Type 2 diabetes mellitus without complications E11.9 [place] [id number] [place] [address] 70773- 1362 Oct, SOB (shortness of breath) R06.02 [place] [address] 24421- 9135 Oct, SOB (shortness of breath) R06.02 [place] [id number] [place] [address] 75364- 3744 Sep, Type 2 diabetes mellitus without complications E11.9 [place] [id number] [place] [address] 92941- 0696 Sep, Left flank pain R10.9 [place] [address] 00852- 2683 Sep, BMI 40.0-44.9, adult Z68.41 ; Left flank pain R10.9 and Seborrheic keratoses L82.1 [facility] [address], [place] [address]- 8684 Aug, Type 2 diabetes mellitus without complications E11.9 [facility] [address], [place] [address]- 0385 Jul, Type 2 diabetes mellitus without complications E11.9 and Abdominal pain, left lower quadrant R10.32 [facility] [address] [id number] [address] Jun, [facility] [id number] [place] [address] 72188- 2786 Jun, Type 2 diabetes mellitus without complications E11.9 [facility] [address] [place] [address] 15613- 9177 Jun, Controlled type 2 diabetes mellitus without complication, without long-term current use of insulin E11.9 and Seborrheic keratoses L82.1 [facility] [address] [place] [address] 76000 -8138 May, Acute back pain M54.9 [facility] [address], [place] [address]- 3213 May, Type 2 diabetes mellitus without complications E11.9 [facility] [address] [place] [address] 26146- 3955 Apr, Diabetes type 2, controlled E11.9 ; Lumbago with sciatica, left side M54.42 and Diabetic mononeuropathy associated with type 2 diabetes mellitus E11.41 [facility] [address], [place] [address]- 7855 Apr, Type 2 diabetes mellitus without complications E11.9 [facility] [address], [place] [address]- 6494 Apr, [facility] [id number] [place] [address] 83689- 7556 Mar, Type 2 diabetes mellitus without complications E11.9 [place] [id number] [place] [address] 82089- 1570 Feb, Controlled type 2 diabetes mellitus without complication, without long-term current use of insulin E11.9 ; Neuropathy G62.9 and Onychomycosis B35.1 [place] [address] 44011- 8700 Jan, Type 2 diabetes mellitus with diabetic neuropathy, unspecified E11.40 [place] [id number] [place] [address] 21313- 9847 Jan, Type 2 diabetes mellitus with diabetic neuropathy, unspecified E11.40 [place] [id number] [place] [address] 48098- 0256 December, Type 2 diabetes mellitus without complications E11.9 [place] [id number] [place] [address] 17957- 0381 December, Slow transit constipation K59.01 and Pain in right hip M25.551 [place] [id number] [place] [address] 79761- 9018 Nov, Type 2 diabetes mellitus without complications E11.9 [place] [id number] [place] [address] 05484- 4470 Oct, Lumbago with sciatica, left side M54.42 and Other chronic pain G89.29 [place] [id number] [place] [address] 33285- 6240 Sep, Diabetes mellitus E11.9 ; Lumbago with sciatica, left side M54.42 and Type 2 diabetes mellitus without complications E11.9 [place] [id number] [place] [address] 75315- 5482 Aug, Type 2 diabetes mellitus without complications E11.9 and skilled nursing 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 [place] [address] [place] [id number] [place] [address] [id number] Aug, Dental examination Z01.20 [facility] [address] [place] [address] [id number] Aug, Dental examination Z01.20 [facility] [address] [place] [address] 84467 -0973 Aug, Dental abscess K04.7 [facility] [id number] [place] [address] 97149- 2789 Jul, Type 2 diabetes mellitus with hyperglycemia E11.65 and 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 [facility] [id number] [place] [address] 62602- 3005 Jul, [place] [id number] [place] [address] 58340- 5764 Jul, Type 2 diabetes mellitus with diabetic neuropathy, unspecified E11.40 [facility] [address] [place] [address] 55716- 1638 Jun, Type 2 diabetes mellitus with diabetic neuropathy, unspecified E11.40 and Lumbago with sciatica, left side M54.42 [facility] [address] [place] [address] 34776- 6827 May, Controlled type 2 diabetes mellitus without complication, without long-term current use of insulin E11.9 [place] [id number] [place] [address] 83193- 7402 Apr, Controlled type 2 diabetes mellitus without complication, without long-term current use of insulin E11.9 and Lumbar neuritis M54.16 [facility] [address] [place] [address] 40697- 5740 Mar, [place] [id number] [place] [address] 43422- 4836 Mar, Other chronic pain G89.29 ; Pain in left knee M25.562 ; Sciatica, left side M54.32 ; Pain in left hip M25.552 ; Type 2 diabetes mellitus with hyperglycemia E11.65 ; 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 and Mood disorder F39 [place] [id number] [place] [address] 94548- 2566 December, Diabetes type 2, controlled E11.9 [place] [address] [id number] [place] [address] 18875- 1561 December, Diabetes type 2, controlled E11.9 [place] [address] 59654- 4266 Oct, Shoulder pain, right M25.511 and Knee pain, right M25.561 [place] [address] 15619- 2345 Oct, Knee pain, left M25.562 [place] [address] 07430- 1325 Sep, Diabetes mellitus E11.9 and Knee pain M25.569 [place] [address] 00397- 9441 Sep, [place] [address] 78247- 7671 Jun, Type 2 diabetes mellitus with diabetic neuropathy, unspecified E11.40 and Type 2 diabetes mellitus with hyperglycemia E11.65 [place] [address] [id number] [place] [address] 68334- 2775 May, Diabetes mellitus E11.9 [place] [address] [id number] [place] [address] 27771- 4238 May, Diabetes mellitus E11.9 and Lumbago with sciatica, left side M54.42 [place] [address] 27390- 9775 Jan, Osteoarthritis of knees, bilateral 715.96 [place] [address] [id number] [place] [address] 26495- 6742 December, [place] [address] [place] [address]- 0087 December, Knee pain, bilateral 719.46 [facility] [address] [facility] [id number] [place] [address] 408696- 6344 Nov, Knee pain, bilateral 719.46 [facility] [address] [id number] [address]- 9933 14 Nov, 2014 [facility] [address] [facility] [id number] [place] [address] 098717- 4825 Nov, [facility] [address] [id number] [place] [address]- 8143 Oct, [facility] [address] [facility] [id number] [place] [address] 06955- 8414 Oct, [facility] [address] [place] [address] 342534- 7298 Aug, [facility] [id number] [place] [address] 49100- 9577 Aug, [facility] [id number], [place] [address]- 3920 Jul, [facility] [id number], [place] [address]- 5704 Jul, [facility] [address], [place] [address]- 9474 Jun, [facility] [address] [facility] [id number], [place] [address]- 5411 Jun, [facility] [place] [facility] [address] [facility] [id number]- 9102 May, [facility] [place] [facility] [address] [facility] [id number] 7913 May, [facility] [place] [facility] [address] [facility] [id number], [place] [address]- 2712 15 Apr, 2014 [facility] [place] [facility] [id number], [place] [address]- 6827 15 Apr, 2014 [facility] [place] [facility] [address] [id number] [place] [address]- 7919 08 Apr, 2014 [facility] [place] [facility] [address] [id number] [place] 6597 Apr, [facility] [place] [facility] [address] [id number] [place] [address]- 0611 Feb, [facility] [place] [facility] [address] [id number] [place] [address]- 3290 Feb, [facility] [place] [facility] [address] [id number] [place] [address]- 7694 December, [facility] [place] [facility] [address] [id number] [place] [address]- 6278 December, [facility] [place] [facility] [address] [id number] [place] [address]- 2592 December, [facility] [place] [facility] [address] [id number] [place] [address]- 3225 December, [facility] [place] [facility] [address] [id number] [place] [address]- 1299 Nov, [facility] [place] [facility] [address] [id number] [place] [address]- 6801 Nov, [facility] [place] [facility] [address] [id number] [place] [address]- 4076 Oct, [facility] [place] [facility] [address] [id number] [place] [address]- 9807 Oct, [facility] [place] [facility] [address] [id number] [place] [address]- 1635 Aug, [facility] [place] [facility] [address] [id number] [place] [address]- 5571 Aug, [facility] [place] [facility] [address] [id number] [place] [address]- 2163 Jul, [facility] [place] [facility] [address] [id number] [place] [address]- 2546 31 Jul, 2013 [facility] [address] [id number] [place] [address]- 1756 04 May, 2013 [facility] [place] [facility] [address] [id number] [place] [address]- 2546 Jan, [facility] [address] [id number] [place] [address]- 2546 Jan, [facility] [address] [id number] [place] [address]- 2546 December, [facility] [address] [id number] [place] [address]- 2546 Nov, [facility] [address] [id number] [place] [address]- 2546 25 Oct, 2012 [facility] [address] [id number] [place] [address]- 2546 19 Oct, 2012 [facility] [address] [id number] [place] [address]- 3178 14 Oct, 2012 [facility] [address] [id number] [place] [address]- 5366 11 Oct, 2012 [facility] [address] [id number] [place] [address]- 2546 07 Oct, 2012 [facility] [place] [facility] [address] [id number] [place] [address]- 2546 07 Oct, 2012 [facility] [address] [id number] [place] [address]- 2546 07 Sep, 2012 [facility] [place] [facility] [address] [id number] [place] [address]- 2546 18 Jul, 2012 [facility] [place] [facility] [address] [id number] [place] [address]- 2546 17 Jul, 2012 [facility] [address] [id number] [place] [address]- 6279 Jul, [facility] [place] [facility] [address] [id number] [place] [address]- 6102 Jun, [facility] [place] [facility] [address] [id number] [place] [address]- 1469 Jun, [facility] [place] [facility] [address] [id number] [place] [address]- 2707 Jun, [facility] [place] [facility] [address] [id number] [place] [address]- 1049 Jun, [facility] [place] [facility] [address] [id number] [place] [address]- 3371 Mar, [facility] [place] [facility] [address] [id number] [place] [address]- 6702 Mar, [facility] [place] [facility] [address] [id number] [place] [address]- 0554 Feb, [facility] [place] [facility] [address] [id number] [place] [address]- 8058 Feb, [facility] [place] [facility] [address] [id number] [place] [address]- 7978 December, [facility] [place] [facility] [address] [id number] [place] [address]- 4311 December, [facility] [place] [facility] [address] [id number] [place] [address]- 4311 Nov, [facility] [place] [facility] [address] [id number] [place] [address] 2546 Oct, [facility] [place] [facility] [address] [id number] [place] [address]- 6832 Oct, [facility] [place] [facility] [address] [id number] [place] [address]- 9576 Jul, [facility] [place] [facility] [address] [id number] [place] [address]- 2546 Sep, [facility] [place] [facility] [id number], [place] [address] 2546 07 Jul, 2010 [facility] [address], [place] [address]- 2646 15 Jan, 2010 [facility] [id number], [place] [address]- 8197 Jun, [facility] [address], [place] [address]- 0002 Mar, [facility] [address], [place] [address]- 3427 Jan, [facility] [address], [place] [address]- 3399 December, [facility] [address], [place] [address]- 7557 Oct, [facility] [address], [place] [address]- 9391 Sep, IMMUNIZATIONS No Known Immunizations SOCIAL HISTORY Never Assessed REASON FOR VISIT Lab (walk-in) PLAN OF CARE VITAL SIGNS MEDICATIONS Unknown Medications RESULTS No Results PROCEDURES Procedure Date Ordered Result Body Site LAB NOT BILLED BY [facility] January 14, 2018 INSTRUCTIONS MEDICATIONS ADMINISTERED No Known Medications MEDICAL (GENERAL) HISTORY Type Description Date Medical History type II diabetes Medical History hyperlipidemia Medical History hypertension Medical History chronic pain back/knees Surgical History right knee arthroscopy 1994 Surgical History heart cath, 2010--clear Surgical History left knee arthroscopy 2010 Surgical History back surgery with rods 12/2016 Hospitalization History surgeries Hospitalization History [facility] ED- Back/Left Side Pain 06/06/2017 Hospitalization History [facility] ED- Congested, cough and SOB 11/07/2017
--- OUTSIDE RECORDS SUMMARY | 2018-04-20 15:58 | XMS REPORT ---
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 Active 118477291 Problem Type 2 diabetes mellitus with diabetic neuropathy, unspecified E11.40 Active 29093121 Problem Diabetes type 2, controlled E11.9 Active 11146136 Problem Type 2 diabetes mellitus with hyperglycemia E11.65 Active 381164566 Problem Controlled type 2 diabetes mellitus without complication, without long -term current use of insulin E11.9 Active 878858483 Problem Chronic fatigue R53.82 Active 27922539 Problem Mood disorder F39 Active 20539930 Problem Slow transit constipation K59.01 Active 80798030 Problem Other chronic pain G89.29 Active 16337873 Problem Diabetic mononeuropathy associated with type 2 diabetes mellitus E11.41 Active 050052332 Problem Neuropathy G62.9 Active 593220525 ALLERGIES No Information ENCOUNTERS Encounter Location Date Diagnosis [place] [id number] [place] [address] 26092- 7845 Apr, [facility] [id number] [place] [address] 15647- 0666 Mar, [place] [address] [id number] [place] [address] 36490- 8312 Mar, Type 2 diabetes mellitus with hyperglycemia E11.65 [place] [id number] [place] [address] 89628- 0995 Feb, Seborrheic keratoses L82.1 and Type 2 diabetes mellitus with diabetic neuropathy, unspecified E11.40 [facility] [id number] [place] [address] 26256- 2502 Feb, Type 2 diabetes mellitus with diabetic neuropathy, unspecified E11.40 ; Renal insufficiency N28.9 and Chronic fatigue R53.82 [facility] [id number] [place] [address] 65287- 7278 Jan, Pneumonia of both lower lobes due to infectious organism J18.1 and Mood disorder F39 [facility] [id number] [place] [address] 10411- 8798 Jan, BMI 40.0-44.9, adult Z68.41 [place] [address] 82529- 9015 Jan, [facility] [id number] [place] [address] 77388- 3853 Jan, [facility] [id number] [place] [address] 09288 -2536 Jan, Wheezes R06.2 ; Diabetes type 2, controlled E11.9 and Pneumonia of right lower lobe due to infectious organism J18.1 [facility] [id number] [place] [address] 97325- 2253 Jan, Renal insufficiency N28.9 [facility] [id number] [place] [address] 34983- 7450 Jan, Seborrheic keratoses L82.1 [facility] [id number] [place] [address] 22819- 0646 18 Jan, 2018 [facility] [id number] [place] [address] 22054- 4324 Jan, [facility] [id number] [place] [address] 03522- 5320 08 Jan, 2018 Renal insufficiency N28.9 [facility] [id number] [place] [address] 74036- 5961 07 Jan, 2018 [facility] [address] [address]- 6206 Jan, Diabetes type 2, controlled E11.9 ; Mood disorder F39 and BMI 40.0-44.9, adult Z68.41 [facility] [address] [address]- 3093 Jan, BMI 40.0-44.9, adult Z68.41 [facility] [id number] [address]- 8870 December, [facility] [id number] [address]- 4280 December, [facility] [id number] [address]- 3217 December, Seborrheic keratoses L82.1 [facility] [address] [address]- 9628 December, Seborrheic keratoses L82.1 [facility] [address] [address]- 2632 December, [facility] [address] [address]- 0119 December, [facility] [address] [address]- 8885 December, BMI 40.0-44.9, adult Z68.41 [facility] [address], [place] [address]- 9432 December, [facility] [address], [place] [address]- 0736 December, [facility] [address], [place] [address]- 7689 Nov, [facility] [address], [place] [address]- 1269 Nov, [facility] [id number] [place] [address] 28118- 5992 17 Nov, 2017 Seborrheic keratoses L82.1 [place] [address] 85909- 8380 Nov, Renal insufficiency N28.9 [place] [address] 10659- 5160 Nov, [place] [address] 74658- 0182 Nov, [place] [address] 78288- 4647 Nov, [place] [address] 74012- 6253 Nov, Type 2 diabetes mellitus with diabetic neuropathy, unspecified E11.40 ; Other chronic pain G89.29 ; Bronchitis J40 ; Renal cyst N28.1 ; Pain of left foot M79.672 and Pain in right foot M79.671 [place] [address] 58861- 7913 Oct, Type 2 diabetes mellitus without complications E11.9 [place] [address] 00290- 7815 Oct, SOB (shortness of breath) R06.02 [place] [address] 61398- 3625 Oct, SOB (shortness of breath) R06.02 [place] [address] [place] [id number] [place] [address] 28355- 5761 Sep, Type 2 diabetes mellitus without complications E11.9 [place] [address] 26721- 0973 Sep, Left flank pain R10.9 [place] [address] 59068- 2131 Sep, BMI 40.0-44.9, adult Z68.41 ; Left flank pain R10.9 and Seborrheic keratoses L82.1 [facility] [address] [place] [address] 12110- 1509 Aug, Type 2 diabetes mellitus without complications E11.9 [facility] [address] [id number] [place] [address] 73086- 8344 Jul, Type 2 diabetes mellitus without complications E11.9 and Abdominal pain, left lower quadrant R10.32 [facility] [address] [place] [id number] [place] [address] Jun, [facility] [address] [place] [address] [id number] [place] [address] 00611- 8172 Jun, Type 2 diabetes mellitus without complications E11.9 [facility] [address] [place] [address] [id number] [place] [address] 36880- 5354 Jun, Controlled type 2 diabetes mellitus without complication, without long-term current use of insulin E11.9 and Seborrheic keratoses L82.1 [facility] [id number] [place] [address] 20581 -3328 May, Acute back pain M54.9 [facility] [address] [place] [address] [id number] [place] [address] 97711- 3402 13 May, 2017 Type 2 diabetes mellitus without complications E11.9 [facility] [address] [id number] [place] [address] 71378- 3649 28 Apr, 2017 Diabetes type 2, controlled E11.9 ; Lumbago with sciatica, left side M54.42 and Diabetic mononeuropathy associated with type 2 diabetes mellitus E11.41 [facility] [address] [place] [address] [id number] [place] [address] 12655- 7715 18 Apr, 2017 Type 2 diabetes mellitus without complications E11.9 [facility] [address] [place] [address] [id number] [place] [address] 55469- 2766 05 Apr, 2017 [facility] [address] [place] [address] [id number] [place] [address] 39807- 5938 Mar, Type 2 diabetes mellitus without complications E11.9 [place] [address] [place] [address] [id number] [place] [address] 57513- 1596 Feb, Controlled type 2 diabetes mellitus without complication, without long-term current use of insulin E11.9 ; Neuropathy G62.9 and Onychomycosis B35.1 [place] [address] [place] [address] [id number] [place] [address] 43172- 5969 Jan, Type 2 diabetes mellitus with diabetic neuropathy, unspecified E11.40 [place] [address] [place] [address] [id number] [place] [address] 46182- 2458 Jan, Type 2 diabetes mellitus with diabetic neuropathy, unspecified E11.40 [place] [address] [place] [address] [id number] [place] [address] 45919- 8042 December, Type 2 diabetes mellitus without complications E11.9 [place] [address] [place] [address] [id number] [place] [address] 92991- 4020 December, Slow transit constipation K59.01 and Pain in right hip M25.551 [place] [address] [place] [address] [id number] [place] [address] 85372- 7052 Nov, Type 2 diabetes mellitus without complications E11.9 [place] [address] [place] [address] [id number] [place] [address] 32988- 6433 Oct, Lumbago with sciatica, left side M54.42 and Other chronic pain G89.29 [place] [address] [place] [address] [id number] [place] [address] 77740- 9406 Sep, Diabetes mellitus E11.9 ; Lumbago with sciatica, left side M54.42 and Type 2 diabetes mellitus without complications E11.9 [place] [address] [place] [address] [id number] [place] [address] 91998- 4244 Aug, Type 2 diabetes mellitus without complications E11.9 and 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 [facility] [address] [place] [id number] [place] [address] [id number] Aug, Dental examination Z01.20 [facility] [address] [place] [address] [id number] Aug, Dental examination Z01.20 [facility] [id number] [place] [address] 62754 -8025 Aug, Dental abscess K04.7 [facility] [address] [place] [id number] [place] [address] 20729- 8100 Jul, Type 2 diabetes mellitus with hyperglycemia E11.65 and 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 [facility] [address] [place] [address] [id number] [place] [address] 14024- 8310 Jul, [place] [address] [place] [address] [id number] [place] [address] 74827- 0325 Jul, Type 2 diabetes mellitus with diabetic neuropathy, unspecified E11.40 [facility] [address] [place] [address] [id number] [place] [address] 77306- 3791 Jun, Type 2 diabetes mellitus with diabetic neuropathy, unspecified E11.40 and Lumbago with sciatica, left side M54.42 [facility] [address] [place] [address] [id number] [place] [address] 52922- 0896 May, Controlled type 2 diabetes mellitus without complication, without long-term current use of insulin E11.9 [facility] [address] [place] [address] [id number] [place] [address] 02319- 9645 Apr, Controlled type 2 diabetes mellitus without complication, without long-term current use of insulin E11.9 and Lumbar neuritis M54.16 [facility] [address] [place] [address] 78996- 4769 Mar, [place] [address] [place] [address] [id number] [place] [address] 65456- 5970 Mar, Other chronic pain G89.29 ; Pain in left knee M25.562 ; Sciatica, left side M54.32 ; Pain in left hip M25.552 ; Type 2 diabetes mellitus with hyperglycemia E11.65 ; 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 and Mood disorder F39 [place] [address] [place] [id number] [place] [address] 66831- 9684 December, Diabetes type 2, controlled E11.9 [place] [address] [place] [address] [id number] [place] [address] 65341- 9555 December, Diabetes type 2, controlled E11.9 [place] [address] [place] [id number] [place] [address] 11242- 3633 Oct, Shoulder pain, right M25.511 and Knee pain, right M25.561 [place] [address] [place] [address] [id number] [place] [address] 65876- 6553 Oct, Knee pain, left M25.562 [place] [address] [place] [address] [id number] [place] [address] 92982- 9270 Sep, Diabetes mellitus E11.9 and Knee pain M25.569 [place] [address] [place] [id number] [place] [address] 19512- 2692 Sep, [place] [address] [place] [address] [id number] [place] [address] 87691- 3757 Jun, Type 2 diabetes mellitus with diabetic neuropathy, unspecified E11.40 and Type 2 diabetes mellitus with hyperglycemia E11.65 [place] [address] [place] [id number] [place] [address] 97379- 1633 May, Diabetes mellitus E11.9 [place] [address] [place] [address] [id number] [place] [address] 09598- 7306 May, Diabetes mellitus E11.9 and Lumbago with sciatica, left side M54.42 [place] [address] [place] [id number] [place] [address] 34410- 9516 Jan, Osteoarthritis of knees, bilateral 715.96 [place] [address] [place] [id number] [place] [address] 16060- 9753 December, [place] [address] [place] [address] [id number] [place] [address] 15305- 3608 December, Knee pain, bilateral 719.46 [facility] [address] [id number] [place]- 5220 Nov, Knee pain, bilateral 719.46 [facility] [address] [id number] [place] [address]- 1496 14 Nov, 2014 [facility] [address] [id number] [place] [address], [place] [address]- 9169 Nov, [facility] [address] [id number] [place] [address]- 2675 Oct, [facility] [address] [id number] [place] [address], [place] [address]- 6609 Oct, [facility] [address] [facility] [id number] [place] [address]- 6503 Aug, [facility] [address] [facility] [id number] [place] [address], [place] [address]- 8053 Aug, [facility] [address] [facility] [id number] [place] [address]- 1480 Jul, [facility] [address] [facility] [id number] [place] 8519 Jul, [facility] [address] [facility] [id number] 5763 Jun, [facility] [address] [facility] [id number] [place] [address]- 9107 Jun, [facility] [address] [facility] [id number], [place] [address]- 7411 May, [facility] [address] [facility] [id number] [place] [address]- 5207 15 May, 2014 [facility] [address] [facility] [id number], [place] [address]- 2706 15 Apr, 2014 [facility] [address] [facility] [id number], [place] [address]- 0098 15 Apr, 2014 [facility] [place] [facility] [address] [id number] [place] [address]- 4140 08 Apr, 2014 [facility] [place] [facility] [address] [id number] [place] [address]- 9840 Apr, [facility] [place] [facility] [address] [id number] [place] [address]- 3814 Feb, [facility] [place] [facility] [address] [id number] [place] [address]- 6068 Feb, [facility] [place] [facility] [address] [id number] [place] [address]- 1356 December, [facility] [place] [facility] [address] [id number] [place] [address]- 6345 December, [facility] [place] [facility] [address] [id number] [place] [address]- 0068 December, [facility] [place] [facility] [address] [id number] [place] [address]- 8024 December, [facility] [place] [facility] [address] [id number] [place] [address]- 1820 Nov, [facility] [place] [facility] [address] [id number] [place] [address]- 3293 Nov, [facility] [place] [facility] [address] [id number] [place] [address]- 0521 Oct, [facility] [place] [facility] [address] [id number] [place] [address]- 9780 Oct, [facility] [place] [facility] [address] [id number] [place] [address]- 2571 Aug, [facility] [place] [facility] [address] [id number] [place] [address]- 3778 Aug, [facility] [place] [facility] [address] [id number] [place] [address]- 8881 Jul, [facility] [place] [facility] [address] [id number], [place] [address]- 3296 31 Jul, 2013 [facility] [address] [id number] [place] [address]- 1850 04 May, 2013 [facility] [address] [id number] [place] [address]- 4831 Jan, [facility] [address] [facility] [id number] [place] [address]- 8056 Jan, [facility] [address] [id number] [place] [address]- 0860 December, [facility] [address] [id number] [place] [address]- 9022 Nov, [facility] [address] [facility] [id number] [place] [address]- 6076 25 Oct, 2012 [facility] [address] [place] [id number] [address]- 3975 Oct, [facility] [address] [facility] [id number] [place] [address]- 6123 14 Oct, 2012 [facility] [id number] [address]- 8103 11 Oct, 2012 [facility] [address] [facility] [id number] [place] [address]- 4939 07 Oct, 2012 [facility] [address] [facility] [id number] [place] [address]- 9104 07 Oct, 2012 [facility] [address] [facility] [id number] [address]- 2546 07 Sep, 2012 [facility] [address] [id number] [place] [address]- 5620 18 Jul, 2012 [facility] [place] [facility] [address] [facility] [id number] [place] [address]- 2136 17 Jul, 2012 [facility] [address] [facility] [id number] [place] [address]- 0696 Jul, [facility] [place] [facility] [address] [id number] [place] [address]- 2763 Jun, [facility] [place] [facility] [address] [id number] [place] [address]- 1791 Jun, [facility] [place] [facility] [address] [id number] [place] [address]- 6305 Jun, [facility] [place] [facility] [address] [id number] [place] [address]- 0079 Jun, [facility] [place] [facility] [address] [id number] [place] [address]- 0780 Mar, [facility] [place] [facility] [address] [id number] [place] [address]- 7912 Mar, [facility] [place] [facility] [address] [id number] [place] [address]- 8549 Feb, [facility] [place] [facility] [address] [id number] [place] [address]- 9759 Feb, [facility] [place] [facility] [address] [id number] [place] [address]- 0974 December, [facility] [place] [facility] [address] [id number] [place] [address]- 1863 December, [facility] [place] [facility] [address] [id number] [place] [address]- 1170 Nov, [facility] [place] [facility] [address] [id number] [place] [address]- 5225 Oct, [facility] [place] [facility] [address] [id number] [place] [address]- 0839 Oct, [facility] [place] [facility] [address] [id number] [place] [address]- 1672 Jul, [facility] [place] [facility] [address] [id number] [place] [address]- 2546 Sep, [facility] [place] [facility] [address] [id number] [place] [address]- 2871 07 Jul, 2010 [facility] [id number] [address]- 4626 15 Jan, 2010 [facility] [id number] [address]- 9746 Jun, [facility] [id number] [address]- 2546 Mar, [facility] [address] [address]- 2546 Jan, [facility] [address] [address]- 1636 December, [facility] [address] [address]- 7016 Oct, [facility] [id number] [address] Sep, IMMUNIZATIONS No Known Immunizations SOCIAL HISTORY Never Assessed REASON FOR VISIT Blood Pressure Check PLAN OF CARE VITAL SIGNS Height 67 in 2017-12-27 Weight 274.6 lbs 2017-12-27 BMI 43.00 kg/m2 2017-12-27 Blood pressure systolic 148 mmHg 2017-12-27 Blood pressure diastolic 86 mmHg 2017-12-27 MEDICATIONS Unknown Medications RESULTS No Results PROCEDURES [...] rods 12/2016 Hospitalization History surgeries Hospitalization History [facility] ED- Back/Left Side Pain 06/06/2017 Hospitalization History [facility] ED- Congested, cough and SOB 11/07/2017
--- OUTSIDE RECORDS SUMMARY | 2018-04-20 15:58 | XMS REPORT ---
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 Active 285456251 Problem Type 2 diabetes mellitus with diabetic neuropathy, unspecified E11.40 Active 11866345 Problem Diabetes type 2, controlled E11.9 Active 18978584 Problem Type 2 diabetes mellitus with hyperglycemia E11.65 Active 032246039 Problem Controlled type 2 diabetes mellitus without complication, without long -term current use of insulin E11.9 Active 596240317 Problem Chronic fatigue R53.82 Active 15941434 Problem Mood disorder F39 Active 32015333 Problem Slow transit constipation K59.01 Active 28375230 Problem Other chronic pain G89.29 Active 34676782 Problem Diabetic mononeuropathy associated with type 2 diabetes mellitus E11.41 Active 671461383 Problem Neuropathy G62.9 Active 044257257 ALLERGIES No Information ENCOUNTERS Encounter Location Date Diagnosis [place] [id number], [place] [address] Apr, [place] [id number], [place] [address] 8[address] Mar, Seborrheic keratoses L82.1 [place] [id number] [place] [address] 94411- 1660 Mar, Type 2 diabetes mellitus with hyperglycemia E11.65 [place] [id number], [place] [address] 4[address] Feb, Seborrheic keratoses L82.1 and Type 2 diabetes mellitus with diabetic neuropathy, unspecified E11.40 [facility] [id number] [place] [address] 23590- 9943 09 Feb, 2018 Type 2 diabetes mellitus with diabetic neuropathy, unspecified E11.40 ; Renal insufficiency N28.9 and Chronic fatigue R53.82 [facility] [id number] [place] [address] 29323- 5689 Jan, Pneumonia of both lower lobes due to infectious organism J18.1 and Mood disorder F39 [facility] [id number] [place] [address] 86114- 4936 Jan, BMI 40.0-44.9, adult Z68.41 [place] [id number] [place] [address] 25095- 1339 Jan, [place] [id number] [place] [address] 33873- 7165 Jan, [facility] [id number] [place] [address] 93935 -8071 Jan, Wheezes R06.2 ; Diabetes type 2, controlled E11.9 and Pneumonia of right lower lobe due to infectious organism J18.1 [place] [id number] [place] [address] 09931- 6454 19 Jan, 2018 Renal insufficiency N28.9 [facility] [id number] [place] [address] 94720- 2404 18 Jan, 2018 Seborrheic keratoses L82.1 [facility] [id number] [place] [address] 33254- 8534 18 Jan, 2018 [facility] [id number] [place] [address] 11541- 4621 11 Jan, 2018 [facility] [id number] [place] [address] 88947- 5172 08 Jan, 2018 Renal insufficiency N28.9 [facility] [id number] [place] [address] 05426- 4254 Jan, [facility] [address], [place] [address]- 3972 Jan, Diabetes type 2, controlled E11.9 ; Mood disorder F39 and BMI 40.0-44.9, adult Z68.41 [facility] [address] 7[address] Jan, BMI 40.0-44.9, adult Z68.41 [facility] [id number] [address]- 8572 December, [facility] [id number] [place] [address] 05828- 7576 December, [facility] [id number] [place] [address] 85207- 3662 December, Seborrheic keratoses L82.1 [facility] [id number] [address]- 4526 December, Seborrheic keratoses L82.1 [facility] [address], [place] [address]- 1770 December, [facility] [address], [place] [address]- 8165 December, [facility] [address], [place] [address]- 9927 December, BMI 40.0-44.9, adult Z68.41 [facility] [address], [place] [address]- 4483 December, [facility] [id number] 6713 December, [facility] [address], [place] [address]- 5146 Nov, [facility] [address], [place] [address]- 0389 Nov, [place] [id number] [place] [address] 23715- 8200 Nov, Seborrheic keratoses L82.1 [place] [address] 71354- 5508 Nov, Renal insufficiency N28.9 [place] [address] 11216- 4736 Nov, [place] [address] 63758- 9725 Nov, [place] [address] 23259- 4399 Nov, [place] [address] 23332- 0959 Nov, Type 2 diabetes mellitus with diabetic neuropathy, unspecified E11.40 ; Other chronic pain G89.29 ; Bronchitis J40 ; Renal cyst N28.1 ; Pain of left foot M79.672 and Pain in right foot M79.671 [place] [id number] [place] [address] 17498- 9418 Oct, Type 2 diabetes mellitus without complications E11.9 [place] [id number] [place] [address] 70890- 7722 Oct, SOB (shortness of breath) R06.02 [place] [address] 83831- 4255 Oct, SOB (shortness of breath) R06.02 [place] [id number] [place] [address] 49556- 7616 Sep, Type 2 diabetes mellitus without complications E11.9 [place] [id number] [place] [address] 24207- 3736 Sep, Left flank pain R10.9 [place] [address] 21072- 3231 Sep, BMI 40.0-44.9, adult Z68.41 ; Left flank pain R10.9 and Seborrheic keratoses L82.1 [facility] [address], [place] [address]- 9378 Aug, Type 2 diabetes mellitus without complications E11.9 [facility] [address], [place] [address]- 0008 Jul, Type 2 diabetes mellitus without complications E11.9 and Abdominal pain, left lower quadrant R10.32 [facility] [address] [id number] [address] Jun, [facility] [id number] [place] [address] 41852- 6539 Jun, Type 2 diabetes mellitus without complications E11.9 [facility] [address] [place] [address] 00684- 6067 Jun, Controlled type 2 diabetes mellitus without complication, without long-term current use of insulin E11.9 and Seborrheic keratoses L82.1 [facility] [address] [place] [address] 43161 -4837 May, Acute back pain M54.9 [facility] [address], [place] [address]- 5860 May, Type 2 diabetes mellitus without complications E11.9 [facility] [address] [place] [address] 12306- 6982 Apr, Diabetes type 2, controlled E11.9 ; Lumbago with sciatica, left side M54.42 and Diabetic mononeuropathy associated with type 2 diabetes mellitus E11.41 [facility] [address], [place] [address]- 8931 Apr, Type 2 diabetes mellitus without complications E11.9 [facility] [address], [place] [address]- 7043 Apr, [facility] [id number] [place] [address] 42251- 2539 Mar, Type 2 diabetes mellitus without complications E11.9 [place] [id number] [place] [address] 21541- 5149 Feb, Controlled type 2 diabetes mellitus without complication, without long-term current use of insulin E11.9 ; Neuropathy G62.9 and Onychomycosis B35.1 [place] [address] 71000- 6538 Jan, Type 2 diabetes mellitus with diabetic neuropathy, unspecified E11.40 [place] [id number] [place] [address] 98989- 6844 Jan, Type 2 diabetes mellitus with diabetic neuropathy, unspecified E11.40 [place] [id number] [place] [address] 58024- 1306 December, Type 2 diabetes mellitus without complications E11.9 [place] [id number] [place] [address] 95333- 2329 December, Slow transit constipation K59.01 and Pain in right hip M25.551 [place] [id number] [place] [address] 38555- 0546 Nov, Type 2 diabetes mellitus without complications E11.9 [place] [id number] [place] [address] 07825- 5729 Oct, Lumbago with sciatica, left side M54.42 and Other chronic pain G89.29 [place] [id number] [place] [address] 19260- 6128 Sep, Diabetes mellitus E11.9 ; Lumbago with sciatica, left side M54.42 and Type 2 diabetes mellitus without complications E11.9 [place] [id number] [place] [address] 15788- 0675 Aug, Type 2 diabetes mellitus without complications E11.9 and FDC 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 [place] [address] [place] [id number] [place] [address] [id number] Aug, Dental examination Z01.20 [facility] [address] [place] [address] [id number] Aug, Dental examination Z01.20 [facility] [address] [place] [address] 63641 -8268 Aug, Dental abscess K04.7 [facility] [id number] [place] [address] 31779- 4584 Jul, Type 2 diabetes mellitus with hyperglycemia E11.65 and 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 [facility] [id number] [place] [address] 59375- 2813 Jul, [place] [id number] [place] [address] 43182- 6333 Jul, Type 2 diabetes mellitus with diabetic neuropathy, unspecified E11.40 [facility] [address] [place] [address] 69519- 5972 Jun, Type 2 diabetes mellitus with diabetic neuropathy, unspecified E11.40 and Lumbago with sciatica, left side M54.42 [facility] [address] [place] [address] 01029- 4375 May, Controlled type 2 diabetes mellitus without complication, without long-term current use of insulin E11.9 [place] [id number] [place] [address] 41979- 0952 Apr, Controlled type 2 diabetes mellitus without complication, without long-term current use of insulin E11.9 and Lumbar neuritis M54.16 [facility] [address] [place] [address] 58455- 3322 Mar, [place] [id number] [place] [address] 53711- 6187 Mar, Other chronic pain G89.29 ; Pain in left knee M25.562 ; Sciatica, left side M54.32 ; Pain in left hip M25.552 ; Type 2 diabetes mellitus with hyperglycemia E11.65 ; 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 and Mood disorder F39 [place] [id number] [place] [address] 49624- 6466 December, Diabetes type 2, controlled E11.9 [place] [id number] [place] [address] 02221- 0648 December, Diabetes type 2, controlled E11.9 [place] [address] 44590- 4484 Oct, Shoulder pain, right M25.511 and Knee pain, right M25.561 [place] [address] 92419- 4986 Oct, Knee pain, left M25.562 [place] [address] 02914- 5412 Sep, Diabetes mellitus E11.9 and Knee pain M25.569 [place] [address] 02379- 9696 Sep, [place] [address] 35985- 9999 Jun, Type 2 diabetes mellitus with diabetic neuropathy, unspecified E11.40 and Type 2 diabetes mellitus with hyperglycemia E11.65 [place] [id number] [place] [address] 35580- 3478 May, Diabetes mellitus E11.9 [place] [id number] [place] [address] 05871- 5802 May, Diabetes mellitus E11.9 and Lumbago with sciatica, left side M54.42 [place] [address] 34794- 8902 Jan, Osteoarthritis of knees, bilateral 715.96 [place] [id number] [place] [address] 63544- 1763 December, [place] [address] [place] [address]- 6604 December, Knee pain, bilateral 719.46 [facility] [address] [facility] [id number] [place] [address] 804385- 8572 Nov, Knee pain, bilateral 719.46 [facility] [address] [id number], [place] [address]- 8121 14 Nov, 2014 [facility] [address] [facility] [id number] [place] [address] 933633- 9773 Nov, [facility] [address] [id number] [place] [address]- 6598 Oct, [facility] [address] [facility] [id number] [place] [address] 57158- 9269 Oct, [facility] [address] [place] [address] 314765- 1656 Aug, [facility] [id number] [place] [address] 90955- 9582 Aug, [facility] [id number], [place] [address]- 9980 Jul, [facility] [id number], [place] [address]- 4243 Jul, [facility] [address], [place] [address]- 9339 Jun, [facility] [address] [facility] [id number], [place] [address]- 8041 Jun, [facility] [place] [facility] [address] [facility] [id number]- 6252 May, [facility] [place] [facility] [address] [facility] [id number]- 6834 May, [facility] [place] [facility] [address] [facility] [id number][place] [address]- 0124 15 Apr, 2014 [facility] [place] [facility] [id number], [place] [address]- 7383 15 Apr, 2014 [facility] [place] [facility] [address] [id number] [place] [address]- 7330 08 Apr, 2014 [facility] [place] [facility] [address] [id number] [place] 3481 Apr, [facility] [place] [facility] [address] [id number] [place] [address]- 9366 Feb, [facility] [place] [facility] [address] [id number] [place] [address]- 6181 Feb, [facility] [place] [facility] [address] [id number] [place] [address]- 8047 December, [facility] [place] [facility] [address] [id number] [place] [address]- 2906 December, [facility] [place] [facility] [address] [id number] [place] [address]- 4538 December, [facility] [place] [facility] [address] [id number] [place] [address]- 7645 December, [facility] [place] [facility] [address] [id number] [place] [address]- 3594 Nov, [facility] [place] [facility] [address] [id number] [place] [address]- 2402 Nov, [facility] [place] [facility] [address] [id number] [place] [address]- 9991 Oct, [facility] [place] [facility] [address] [id number] [place] [address]- 1623 Oct, [facility] [place] [facility] [address] [id number] [place] [address]- 2516 Aug, [facility] [place] [facility] [address] [id number] [place] [address]- 9914 Aug, [facility] [place] [facility] [address] [id number] [place] [address]- 7824 Jul, [facility] [place] [facility] [address] [id number] [place] [address]- 2546 31 Jul, 2013 [facility] [address] [id number] [place] [address]- 9196 04 May, 2013 [facility] [place] [facility] [address] [id number] [place] [address]- 2546 Jan, [facility] [address] [id number] [place] [address]- 2546 Jan, [facility] [address] [id number] [place] [address]- 2546 December, [facility] [address] [id number] [place] [address]- 2546 Nov, [facility] [address] [id number] [place] [address]- 2546 25 Oct, 2012 [facility] [address] [id number] [place] [address]- 2546 19 Oct, 2012 [facility] [address] [id number] [place] [address]- 4032 14 Oct, 2012 [facility] [address] [id number] [place] [address]- 6406 11 Oct, 2012 [facility] [address] [id number] [place] [address]- 2546 07 Oct, 2012 [facility] [place] [facility] [address] [id number] [place] [address]- 2546 07 Oct, 2012 [facility] [address] [id number] [place] [address]- 2546 07 Sep, 2012 [facility] [place] [facility] [address] [id number] [place] [address]- 2546 18 Jul, 2012 [facility] [place] [facility] [address] [id number] [place] [address]- 2546 17 Jul, 2012 [facility] [address] [id number] [place] [address]- 8209 Jul, [facility] [place] [facility] [address] [id number] [place] [address]- 0579 Jun, [facility] [place] [facility] [address] [id number] [place] [address]- 6788 Jun, [facility] [place] [facility] [address] [id number] [place] [address]- 3505 Jun, [facility] [place] [facility] [address] [id number] [place] [address]- 8253 Jun, [facility] [place] [facility] [address] [id number] [place] [address]- 9785 Mar, [facility] [place] [facility] [address] [id number] [place] [address]- 3648 Mar, [facility] [place] [facility] [address] [id number] [place] [address]- 9844 Feb, [facility] [place] [facility] [address] [id number] [place] [address]- 4996 Feb, [facility] [place] [facility] [address] [id number] [place] [address]- 2912 December, [facility] [place] [facility] [address] [id number] [place] [address]- 0617 December, [facility] [place] [facility] [address] [id number] [place] [address]- 0444 Nov, [facility] [place] [facility] [address] [id number] [place] [address] 2546 Oct, [facility] [place] [facility] [address] [id number] [place] [address]- 6405 Oct, [facility] [place] [facility] [address] [id number] [place] [address]- 0416 Jul, [facility] [place] [facility] [address] [id number] [place] [address]- 2546 Sep, [facility] [place] [facility] [id number], [place] [address]- 2546 07 Jul, 2010 [facility] [address], [place] [address]- 6416 15 Jan, 2010 [facility] [id number], [place] [address]- 6966 Jun, [facility] [address], [place] [address]- 3456 Mar, [facility] [address], [place] [address]- 2296 Jan, [facility] [address], [place] [address]- 0586 December, [facility] [address], [place] [address]- 2546 Oct, [facility] [address], [place] [address]- 6086 Sep, IMMUNIZATIONS No Known Immunizations SOCIAL HISTORY Never Assessed REASON FOR VISIT BP Reduction Challenge Check-in PLAN OF CARE VITAL SIGNS MEDICATIONS Medication Instructions Dosage Frequency Start Date End Date Duration Status Metoprolol Tartrate 100 mg Orally Twice a day 1 tablet with food 12h December Active RESULTS No Results PROCEDURES No Known [...] rods 12/2016 Hospitalization History surgeries Hospitalization History [facility] ED- Back/Left Side Pain 06/06/2017 Hospitalization History [facility] ED- Congested, cough and SOB 11/07/2017
--- OUTSIDE RECORDS SUMMARY | 2018-04-20 15:59 | XMS REPORT ---
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 Active 628560117 Problem Type 2 diabetes mellitus with diabetic neuropathy, unspecified E11.40 Active 05086721 Problem Diabetes type 2, controlled E11.9 Active 40008158 Problem Type 2 diabetes mellitus with hyperglycemia E11.65 Active 303342497 Problem Controlled type 2 diabetes mellitus without complication, without long -term current use of insulin E11.9 Active 154019275 Problem Chronic fatigue R53.82 Active 08659495 Problem Mood disorder F39 Active 83442935 Problem Slow transit constipation K59.01 Active 62251502 Problem Other chronic pain G89.29 Active 49433136 Problem Diabetic mononeuropathy associated with type 2 diabetes mellitus E11.41 Active 590145401 Problem Neuropathy G62.9 Active 176130869 ALLERGIES No Information ENCOUNTERS Encounter Location Date Diagnosis [place] [id number] [place] [address] 65780- 1076 Apr, [place] [address] [place] [id number] [place] [address] 53552- 1693 Mar, Type 2 diabetes mellitus with hyperglycemia E11.65 [facility] [place] [address] [place] [id number] [place] [address] 37572- 7300 Feb, Seborrheic keratoses L82.1 and Type 2 diabetes mellitus with diabetic neuropathy, unspecified E11.40 [place] [address] [place] [id number] [place] [address] 46630- 2602 Feb, Type 2 diabetes mellitus with diabetic neuropathy, unspecified E11.40 ; Renal insufficiency N28.9 and Chronic fatigue R53.82 [facility] [place] [address] [place] [id number] [place] [address] 02123- 2552 Jan, Pneumonia of both lower lobes due to infectious organism J18.1 and Mood disorder F39 [facility] [place] [address] [place] [id number] [place] [address] 76387- 9358 Jan, BMI 40.0-44.9, adult Z68.41 [facility] [place] [address] [place] [id number] [place] [address] 84991- 4502 Jan, [facility] [place] [address] 87395- 3217 Jan, [facility] [address] [place] [address] [id number] [place] [address] 06970 -7185 Jan, Wheezes R06.2 ; Diabetes type 2, controlled E11.9 and Pneumonia of right lower lobe due to infectious organism J18.1 [facility] [place] [address] [place] [id number] [place] [address] 93650- 6690 Jan, Renal insufficiency N28.9 [facility] [place] [address] [place] [address] [id number] [place] [address] 40521- 9221 Jan, Seborrheic keratoses L82.1 [facility] [place] [address] [place] [id number] [place] [address] 94585- 2730 Jan, [facility] [place] [address] [place] [id number] [place] [address] 39398- 1300 Jan, [facility] [place] [address] [place] [id number] [place] [address] 89896- 5490 Jan, Renal insufficiency N28.9 [facility] [place] [address] [place] [id number] [place] [address] 98128- 8900 Jan, [facility] [place] [address] [place] [id number] [place] [address] 84029- 6182 Jan, Diabetes type 2, controlled E11.9 ; Mood disorder F39 and BMI 40.0-44.9, adult Z68.41 [facility] [place] [address] [place] [id number] [place] [address] 59229- 1669 Jan, BMI 40.0-44.9, adult Z68.41 [facility] [place] [address] [place] [id number] [place] [address]- 1401 December, [facility] [place] [address] [place] [address] [id number] [place] [address] 02496- 8638 December, [facility] [place] [address] [place] [address] [id number] [place] [address] 24227- 8202 December, Seborrheic keratoses L82.1 [facility] [place] [address] [place] [id number] [place] [address], [place] [address]- 6641 December, Seborrheic keratoses L82.1 [facility] [place] [address] [place] [id number] [place] [address] 83221- 7449 December, [facility] [place] [address] [place] [id number] [address]- 3914 December, [facility] [place] [address] [place] [id number] [place] [address] 68414- 0967 December, BMI 40.0-44.9, adult Z68.41 [facility] [place] [address] [address]- 6131 December, [facility] [place] [address] [place] [id number] [address]- 9175 December, [facility] [place] [address] [address]- 1031 Nov, [facility] [place] [address] [place] [id number] [address]- 1815 Nov, [facility] [place] [address] [address]- 0140 Nov, Seborrheic keratoses L82.1 [place] [address] [place] [id number] [place] [address] 76096- 4336 Nov, Renal insufficiency N28.9 [place] [address] 35228- 1299 Nov, [place] [address] 08149- 2456 Nov, [place] [address] 71692- 4252 Nov, [place] [address] 54486- 6001 Nov, Type 2 diabetes mellitus with diabetic neuropathy, unspecified E11.40 ; Other chronic pain G89.29 ; Bronchitis J40 ; Renal cyst N28.1 ; Pain of left foot M79.672 and Pain in right foot M79.671 [place] [address] 81995- 0710 Oct, Type 2 diabetes mellitus without complications E11.9 [place] [address] 08580- 7906 Oct, SOB (shortness of breath) R06.02 [place] [address] [place] [id number] [place] [address] 12509- 4194 Oct, SOB (shortness of breath) R06.02 [place] [address] 87055- 6041 Sep, Type 2 diabetes mellitus without complications E11.9 [place] [address] 87560- 6724 Sep, Left flank pain R10.9 [place] [address] 58891- 8587 Sep, BMI 40.0-44.9, adult Z68.41 ; Left flank pain R10.9 and Seborrheic keratoses L82.1 [place] [address] [address]- 7428 Aug, Type 2 diabetes mellitus without complications E11.9 [facility] [place] [address] [address]- 3706 Jul, Type 2 diabetes mellitus without complications E11.9 and Abdominal pain, left lower quadrant R10.32 [facility] [address] [id number] [address] Jun, [facility] [place] [address] [address]- 2554 Jun, Type 2 diabetes mellitus without complications E11.9 [facility] [place] [address] [address]- 5732 Jun, Controlled type 2 diabetes mellitus without complication, without long-term current use of insulin E11.9 and Seborrheic keratoses L82.1 [facility] [address] [address] May, Acute back pain M54.9 [facility] [place] [address] [place] [address] 05550- 7743 13 May, 2017 Type 2 diabetes mellitus without complications E11.9 [facility] [place] [address] [address]- 6596 28 Apr, 2017 Diabetes type 2, controlled E11.9 ; Lumbago with sciatica, left side M54.42 and Diabetic mononeuropathy associated with type 2 diabetes mellitus E11.41 [facility] [place] [address] [address]- 5180 Apr, Type 2 diabetes mellitus without complications E11.9 [facility] [place] [address] [address]- 3914 05 Apr, 2017 [facility] [place] [address] [address]- 6546 Mar, Type 2 diabetes mellitus without complications E11.9 [facility] [place] [address] [place] [id number] [place] [address] 91234- 1873 Feb, Controlled type 2 diabetes mellitus without complication, without long-term current use of insulin E11.9 ; Neuropathy G62.9 and Onychomycosis B35.1 [place] [address] [place] [id number] [place] [address] 01629- 3491 15 Jan, 2017 Type 2 diabetes mellitus with diabetic neuropathy, unspecified E11.40 [place] [address] [place] [id number] [place] [address] 00717- 6825 Jan, Type 2 diabetes mellitus with diabetic neuropathy, unspecified E11.40 [place] [address] [place] [id number] [place] [address] 03653- 5189 December, Type 2 diabetes mellitus without complications E11.9 [place] [address] [place] [id number] [place] [address] 76151- 9506 December, Slow transit constipation K59.01 and Pain in right hip M25.551 [place] [address] [place] [id number] [place] [address] 22701- 5464 Nov, Type 2 diabetes mellitus without complications E11.9 [place] [address] [place] [id number] [place] [address] 19943- 8177 Oct, Lumbago with sciatica, left side M54.42 and Other chronic pain G89.29 [place] [address] [place] [id number] [place] [address] 85320- 5887 Sep, Diabetes mellitus E11.9 ; Lumbago with sciatica, left side M54.42 and Type 2 diabetes mellitus without complications E11.9 [place] [address] [place] [id number] [place] [address] 35121- 3484 Aug, Type 2 diabetes mellitus without complications E11.9 and custodial 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 [facility] [address] [place] [address] [id number] Aug, Dental examination Z01.20 [facility] [address] [place] [id number] [place] [address] [id number] Aug, Dental examination Z01.20 [facility] [address] [place] [address] 71999 -8912 Aug, Dental abscess K04.7 [facility] [place] [address] [place] [address] 05663- 0591 Jul, Type 2 diabetes mellitus with hyperglycemia E11.65 and custodial 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 [place] [address] [place] [id number] [place] [address] 44889- 7168 Jul, [place] [address] [place] [id number] [place] [address] 68657- 7463 Jul, Type 2 diabetes mellitus with diabetic neuropathy, unspecified E11.40 [place] [address] [place] [id number] [place] [address] 20742- 3528 Jun, Type 2 diabetes mellitus with diabetic neuropathy, unspecified E11.40 and Lumbago with sciatica, left side M54.42 [place] [address] [place] [address] 34635- 1389 May, Controlled type 2 diabetes mellitus without complication, without long-term current use of insulin E11.9 [place] [address] [place] [id number] [place] [address] 68097- 0225 08 Apr, 2016 Controlled type 2 diabetes mellitus without complication, without long-term current use of insulin E11.9 and Lumbar neuritis M54.16 [place] [address] [place] [id number] [place] [address] 09464- 5723 Mar, [place] [address] [place] [id number] [place] [address] 15469- 5106 Mar, Other chronic pain G89.29 ; Pain in left knee M25.562 ; Sciatica, left side M54.32 ; Pain in left hip M25.552 ; Type 2 diabetes mellitus with hyperglycemia E11.65 ; custodial 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 and Mood disorder F39 [place] [address] [place] [id number] [place] [address] 96618- 5898 December, Diabetes type 2, controlled E11.9 [place] [address] [place] [id number] [place] [address] 43911- 2107 December, Diabetes type 2, controlled E11.9 [facility] [place] [address] [place] [id number] [place] [address] 80335- 4738 Oct, Shoulder pain, right M25.511 and Knee pain, right M25.561 [place] [address] [place] [id number] [place] [address] 68367- 4029 Oct, Knee pain, left M25.562 [place] [address] [place] [id number] [place] [address] 55076- 4959 Sep, Diabetes mellitus E11.9 and Knee pain M25.569 [place] [address] [place] [id number] [place] [address] 31102- 5743 Sep, [place] [address] [place] [id number] [place] [address] 34675- 3934 Jun, Type 2 diabetes mellitus with diabetic neuropathy, unspecified E11.40 and Type 2 diabetes mellitus with hyperglycemia E11.65 [place] [address] [place] [id number] [place] [address] 32980- 6668 May, Diabetes mellitus E11.9 [place] [address] [place] [id number] [place] [address] 09411- 4598 May, Diabetes mellitus E11.9 and Lumbago with sciatica, left side M54.42 [place] [address] [place] [id number] [place] [address] 39064- 2413 Jan, Osteoarthritis of knees, bilateral 715.96 [place] [address] [place] [id number] [place] [address] 11595- 0824 December, [place] [address] [place] [id number] [place] [address] 00311- 9720 December, Knee pain, bilateral 719.46 [place] [address] [place] [id number] [place] [address] 74140- 9323 29 Nov, 2014 Knee pain, bilateral 719.46 [facility] [address] [id number] [place] [address]- 3466 14 Nov, 2014 [facility] [address] [id number] [place] [address]- 6733 13 Nov, 2014 [facility] [address] [id number] [place] [address]- 1784 Oct, [facility] [address] [id number] [place] [address]- 3917 Oct, [facility] [address] [place] [id number] [place] [address], [place] 6847 Aug, [facility] [address] [facility] [id number] [place] [address]- 0721 Aug, [facility] [address] [address]- 7746 17 Jul, 2014 [facility] [address] [id number] [place] [address]- 1812 17 Jul, 2014 [facility] [address] [address]- 1325 Jun, [facility] [address] [place] [id number] [address]- 4794 17 Jun, 2014 [facility] [address] [id number] [place] [address]- 0193 15 May, 2014 [facility] [address] [id number] [place] [address]- 7764 15 May, 2014 [facility] [address] [facility] [id number] [place] 2008 15 Apr, 2014 [facility] [place] [facility] [address] [facility] [id number] [place] [address]- 2001 15 Apr, 2014 [facility] [address] [facility] [id number] [place] 3085 Apr, [facility] [place] [facility] [address] [id number] [place] [address]- 4691 Apr, [facility] [place] [facility] [address] [id number] [place] [address]- 0807 Feb, [facility] [place] [facility] [address] [id number] [place] [address]- 6895 Feb, [facility] [place] [facility] [address] [id number] [place] [address]- 0163 December, [facility] [place] [facility] [address] [id number] [place] 4221 December, [facility] [place] [facility] [address] [id number] [place] [address]- 7011 December, [facility] [place] [facility] [address] [id number] [place] [address]- 1320 December, [facility] [place] [facility] [address] [id number] [place] [address]- 5823 Nov, [facility] [place] [facility] [address] [id number] [place] [address]- 0493 Nov, [facility] [place] [facility] [address] [id number] [place] [address]- 7262 Oct, [facility] [place] [facility] [address] [id number] [place] [address]- 1801 Oct, [facility] [place] [facility] [address] [id number] [place] [address]- 0519 Aug, [facility] [place] [facility] [address] [id number] [place] [address]- 4030 Aug, [facility] [place] [facility] [address] [id number] [place] [address]- 3086 Jul, [facility] [place] [facility] [address] [id number] [place] [address]- 3126 Jul, [facility] [place] [facility] [address] [id number] [address]- 7906 04 May, 2013 [facility] [address] [id number] [place] [address]- 0162 Jan, [facility] [address] [facility] [id number] [place] [address]- 5786 Jan, [facility] [address] [facility] [id number] [place] [address]- 8776 December, [facility] [address] [id number] [place] [address]- 8859 Nov, [facility] [address] [facility] [id number] [place] [address]- 7944 25 Oct, 2012 [facility] [address] [facility] [id number] [place] [address] 2546 19 Oct, 2012 [facility] [address] [address]- 7327 14 Oct, 2012 [facility] [address] [facility] [id number] [place] [address]- 0501 Oct, [facility] [id number] [address]- 3086 07 Oct, 2012 [facility] [id number] [address]- 0524 07 Oct, 2012 [facility] [address] [facility] [id number] [place] [address]- 7811 07 Sep, 2012 [facility] [address] [facility] [id number] [place] [address]- 0483 18 Jul, 2012 [facility] [address] [id number] [place] [address]- 7628 Jul, [facility] [address] [facility] [id number] [place] [address]- 9576 Jul, [facility] [address] [facility] [id number] [place] [address]- 7892 Jun, [facility] [place] [facility] [address] [id number] [place] [address]- 9659 Jun, [facility] [place] [facility] [address] [id number] [place] [address]- 6949 Jun, [facility] [place] [facility] [address] [id number] [place] [address]- 2546 Jun, [facility] [place] [facility] [address] [id number] [place] [address]- 0896 Mar, [facility] [place] [facility] [address] [id number] [place] [address]- 8076 Mar, [facility] [place] [facility] [address] [id number] [place] [address]- 6337 Feb, [facility] [place] [facility] [address] [id number] [place] [address]- 3352 Feb, [facility] [place] [facility] [address] [id number] [place] [address]- 5826 December, [facility] [place] [facility] [address] [id number] [place] [address]- 8229 December, [facility] [place] [facility] [address] [id number] [place] [address]- 8422 Nov, [facility] [place] [facility] [address] [id number] [place] [address]- 2546 Oct, [facility] [place] [facility] [address] [id number] [place] [address]- 2546 Oct, [facility] [place] [facility] [address] [id number] [place] [address] Jul, [facility] [place] [facility] [address] [id number] [place] [address] Sep, [facility] [place] [facility] [address] [id number] [place] [address] Jul, [facility] [place] [facility] [address] [id number] [place] [address] 15 Jan, 2010 [facility] [place] [address] [facility] [id number] [place] [address] Jun, [facility] [place] [id number] [address] Mar, [facility] [place] [address] [id number] [address] Jan, [facility] [place] [id number] [address] December, [facility] [place] [address] [id number] [address] Oct, [facility] [place] [address] [id number] [address] Sep, IMMUNIZATIONS No Known Immunizations SOCIAL HISTORY Never Assessed REASON FOR VISIT Controlled Med Refill PLAN OF CARE VITAL SIGNS MEDICATIONS Medication Instructions Dosage Frequency Start Date End Date Duration Status Oxycodone-Acetaminophen 10-325 MG Orally every 6 hrs 1 tablet as needed 6h December, 28 days Active RESULTS No Results PROCEDURES [...] rods 12/2016 Hospitalization History surgeries Hospitalization History [facility] ED- Back/Left Side Pain 06/06/2017 Hospitalization History [facility] ED- Congested, cough and SOB 11/07/2017
--- OUTSIDE RECORDS SUMMARY | 2018-04-20 15:59 | XMS REPORT ---
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 337427042 Problem Type 2 diabetes mellitus with diabetic neuropathy, unspecified E11.40 Active 53897971 Problem Diabetes type 2, controlled E11.9 Active 47469104 Problem Type 2 diabetes mellitus with hyperglycemia E11.65 Active 264827867 Problem Controlled type 2 diabetes mellitus without complication, without long -term current use of insulin E11.9 Active 327033795 Problem Chronic fatigue R53.82 Active 58788339 Problem Mood disorder F39 Active 85451457 Problem Slow transit constipation K59.01 Active 04267904 Problem Other chronic pain G89.29 Active 03587516 Problem Diabetic mononeuropathy associated with type 2 diabetes mellitus E11.41 Active 605219021 Problem Neuropathy G62.9 Active 468425719 ALLERGIES No Information ENCOUNTERS Encounter Location Date Diagnosis [place] [id number] [place] [address] 37858- 0373 Apr, [place] [address] [place] [id number] [place] [address] 45438- 9133 Mar, Type 2 diabetes mellitus with hyperglycemia E11.65 [facility] [address] [id number] [place] [address] 05737- 0322 Feb, Seborrheic keratoses L82.1 and Type 2 diabetes mellitus with diabetic neuropathy, unspecified E11.40 [place] [address] [place] [id number] [place] [address] 47320- 3121 Feb, Type 2 diabetes mellitus with diabetic neuropathy, unspecified E11.40 ; Renal insufficiency N28.9 and Chronic fatigue R53.82 [facility] [id number] [place] [address] 85454- 9650 Jan, Pneumonia of both lower lobes due to infectious organism J18.1 and Mood disorder F39 [facility] [address] [address] [id number] [place] [address] 93455- 1299 Jan, BMI 40.0-44.9, adult Z68.41 [facility] [address] [address] [id number] [place] [address] 10443- 0813 Jan, [facility] [address] 64507- 0612 Jan, [facility] [address] [id number] [place] [address] 87657 -2038 Jan, Wheezes R06.2 ; Diabetes type 2, controlled E11.9 and Pneumonia of right lower lobe due to infectious organism J18.1 [facility] [id number] [place] [address] 52809- 9224 Jan, Renal insufficiency N28.9 [facility] [address] [id number] [place] [address] 05327- 8982 Jan, Seborrheic keratoses L82.1 [facility] [address] [address] [id number] [place] [address] 09288- 0551 Jan, [facility] [id number] [place] [address] 77325- 8822 Jan, [facility] [id number] [place] [address] 92753- 6563 Jan, Renal insufficiency N28.9 [facility] [id number] [place] [address] 33851- 0934 Jan, [facility] [address] [id number] [place] [address] 39188- 0997 Jan, Diabetes type 2, controlled E11.9 ; Mood disorder F39 and BMI 40.0-44.9, adult Z68.41 [facility] [id number] [place] [address] 01044- 8009 Jan, BMI 40.0-44.9, adult Z68.41 [facility] [id number] [place] [address]- 2276 December, [facility] [id number] [place] [address] 36669- 8670 December, [facility] [address] [id number] [place] [address] 97890- 1762 December, Seborrheic keratoses L82.1 [facility] [address] [id number] [place] [address], [place] [address]- 0596 December, Seborrheic keratoses L82.1 [facility] [address] [address] [id number] [place] [address] 26676- 4071 December, [facility] [id number] [address]- 7503 December, [facility] [address] [id number] [place] [address] 19926- 8385 December, BMI 40.0-44.9, adult Z68.41 [facility] [address] [address]- 1742 December, [facility] [id number] [address]- 2614 December, [facility] [address] [address]- 6425 Nov, [facility] [id number] [address]- 9021 Nov, [facility] [address], [place] [address]- 1473 Nov, Seborrheic keratoses L82.1 [place] [address] [id number] [place] [address] 46707- 9551 Nov, Renal insufficiency N28.9 [place] [address] 49881- 4137 Nov, [place] [address] 91500- 2546 Nov, [place] [address] 72061- 5128 Nov, [place] [address] 42452- 9023 Nov, Type 2 diabetes mellitus with diabetic neuropathy, unspecified E11.40 ; Other chronic pain G89.29 ; Bronchitis J40 ; Renal cyst N28.1 ; Pain of left foot M79.672 and Pain in right foot M79.671 [place] [address] 38648- 6025 Oct, Type 2 diabetes mellitus without complications E11.9 [place] [address] 09438- 9790 Oct, SOB (shortness of breath) R06.02 [place] [address] [place] [id number] [place] [address] 67668- 8256 Oct, SOB (shortness of breath) R06.02 [place] [address] 94992- 9939 Sep, Type 2 diabetes mellitus without complications E11.9 [place] [address] 42544- 1763 Sep, Left flank pain R10.9 [place] [address] 94170- 6600 Sep, BMI 40.0-44.9, adult Z68.41 ; Left flank pain R10.9 and Seborrheic keratoses L82.1 [place] [address], [place] [address]- 3352 Aug, Type 2 diabetes mellitus without complications E11.9 [facility] [address], [place] [address]- 6373 Jul, Type 2 diabetes mellitus without complications E11.9 and Abdominal pain, left lower quadrant R10.32 [facility] [address] [id number] [address] Jun, [facility] [address], [place] [address]- 7782 Jun, Type 2 diabetes mellitus without complications E11.9 [facility] [address] [address]- 5617 Jun, Controlled type 2 diabetes mellitus without complication, without long-term current use of insulin E11.9 and Seborrheic keratoses L82.1 [facility] [address], [place] [address] May, Acute back pain M54.9 [facility] [address] [place] [address] 62364- 3897 13 May, 2017 Type 2 diabetes mellitus without complications E11.9 [facility] [address], [place] [address]- 9359 28 Apr, 2017 Diabetes type 2, controlled E11.9 ; Lumbago with sciatica, left side M54.42 and Diabetic mononeuropathy associated with type 2 diabetes mellitus E11.41 [facility] [address], [place] [address]- 0975 Apr, Type 2 diabetes mellitus without complications E11.9 [facility] [address], [place] [address]- 7631 05 Apr, 2017 [facility] [address], [place] [address]- 8770 Mar, Type 2 diabetes mellitus without complications E11.9 [facility] [address] [place] [id number] [place] [address] 12523- 0077 Feb, Controlled type 2 diabetes mellitus without complication, without long-term current use of insulin E11.9 ; Neuropathy G62.9 and Onychomycosis B35.1 [place] [address] [place] [id number] [place] [address] 84401- 6785 15 Jan, 2017 Type 2 diabetes mellitus with diabetic neuropathy, unspecified E11.40 [place] [address] [place] [id number] [place] [address] 35345- 0841 Jan, Type 2 diabetes mellitus with diabetic neuropathy, unspecified E11.40 [place] [address] [place] [id number] [place] [address] 47950- 1714 December, Type 2 diabetes mellitus without complications E11.9 [place] [address] [place] [id number] [place] [address] 79544- 6564 December, Slow transit constipation K59.01 and Pain in right hip M25.551 [place] [address] [place] [id number] [place] [address] 09957- 7287 Nov, Type 2 diabetes mellitus without complications E11.9 [place] [address] [place] [id number] [place] [address] 10077- 8878 Oct, Lumbago with sciatica, left side M54.42 and Other chronic pain G89.29 [place] [address] [place] [id number] [place] [address] 67522- 9778 Sep, Diabetes mellitus E11.9 ; Lumbago with sciatica, left side M54.42 and Type 2 diabetes mellitus without complications E11.9 [place] [address] [place] [id number] [place] [address] 87997- 6299 Aug, Type 2 diabetes mellitus without complications E11.9 and 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 [facility] [address] [place] [address] [id number] Aug, Dental examination Z01.20 [facility] [address] [place] [id number] [place] [address] [id number] Aug, Dental examination Z01.20 [facility] [address] [place] [address] 67665 -7848 Aug, Dental abscess K04.7 [facility] [address] [place] [address] 25043- 4092 Jul, Type 2 diabetes mellitus with hyperglycemia E11.65 and 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 [place] [address] [place] [id number] [place] [address] 85518- 4624 Jul, [place] [address] [place] [id number] [place] [address] 00488- 0035 Jul, Type 2 diabetes mellitus with diabetic neuropathy, unspecified E11.40 [place] [address] [place] [id number] [place] [address] 48374- 4374 Jun, Type 2 diabetes mellitus with diabetic neuropathy, unspecified E11.40 and Lumbago with sciatica, left side M54.42 [place] [address] [place] [address] 25478- 8773 May, Controlled type 2 diabetes mellitus without complication, without long-term current use of insulin E11.9 [place] [address] [place] [id number] [place] [address] 62436- 2867 08 Apr, 2016 Controlled type 2 diabetes mellitus without complication, without long-term current use of insulin E11.9 and Lumbar neuritis M54.16 [place] [address] [place] [id number] [place] [address] 27922- 6839 Mar, [place] [address] [place] [id number] [place] [address] 45009- 0217 Mar, Other chronic pain G89.29 ; Pain in left knee M25.562 ; Sciatica, left side M54.32 ; Pain in left hip M25.552 ; Type 2 diabetes mellitus with hyperglycemia E11.65 ; 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 and Mood disorder F39 [place] [address] [place] [id number] [place] [address] 55149- 7974 December, Diabetes type 2, controlled E11.9 [place] [address] [place] [id number] [place] [address] 73596- 4010 December, Diabetes type 2, controlled E11.9 [facility] [address] [place] [id number] [place] [address] 02939- 8424 Oct, Shoulder pain, right M25.511 and Knee pain, right M25.561 [place] [address] [place] [id number] [place] [address] 94415- 5595 Oct, Knee pain, left M25.562 [place] [address] [place] [id number] [place] [address] 40053- 7162 Sep, Diabetes mellitus E11.9 and Knee pain M25.569 [place] [address] [place] [id number] [place] [address] 42507- 4844 Sep, [place] [address] [place] [id number] [place] [address] 64729- 1982 Jun, Type 2 diabetes mellitus with diabetic neuropathy, unspecified E11.40 and Type 2 diabetes mellitus with hyperglycemia E11.65 [place] [address] [place] [id number] [place] [address] 36509- 5126 May, Diabetes mellitus E11.9 [place] [address] [place] [id number] [place] [address] 70769- 4002 May, Diabetes mellitus E11.9 and Lumbago with sciatica, left side M54.42 [place] [address] [place] [id number] [place] [address] 64499- 3746 Jan, Osteoarthritis of knees, bilateral 715.96 [place] [address] [place] [id number] [place] [address] 83269- 4016 December, [place] [address] [place] [id number] [place] [address] 04830- 9593 December, Knee pain, bilateral 719.46 [place] [address] [place] [id number] [place] [address] 36783- 4278 29 Nov, 2014 Knee pain, bilateral 719.46 [facility] [address] [id number] [place] [address]- 0282 14 Nov, 2014 [facility] [address] [id number] [place] [address]- 4652 13 Nov, 2014 [facility] [address] [id number] [place] [address]- 0693 Oct, [facility] [address] [id number] [place] [address]- 9724 Oct, [facility] [address] [place] [id number] [place] [address], [place]- 2820 Aug, [facility] [address] [facility] [id number] [place] [address]- 9512 Aug, [facility] [address] [address]- 8287 17 Jul, 2014 [facility] [address] [id number] [place] [address]- 0745 17 Jul, 2014 [facility] [address] [address]- 0115 Jun, [facility] [address] [place] [address] [id number] [address]- 1055 17 Jun, 2014 [facility] [address] [id number] [place] [address]- 9818 15 May, 2014 [facility] [address] [id number] [place] [address]- 0149 15 May, 2014 [facility] [address] [facility] [id number] [place] 2537 15 Apr, 2014 [facility] [place] [facility] [address] [facility] [id number] [place] [address]- 6255 15 Apr, 2014 [facility] [address] [facility] [id number] [place]- 2674 Apr, [facility] [place] [facility] [address] [id number] [place] [address]- 9698 Apr, [facility] [place] [facility] [address] [id number] [place] [address]- 2160 Feb, [facility] [place] [facility] [address] [id number] [place] [address]- 4884 Feb, [facility] [place] [facility] [address] [id number] [place] [address]- 2951 December, [facility] [place] [facility] [address] [id number] [place] 6470 December, [facility] [place] [facility] [address] [id number] [place] [address]- 0394 December, [facility] [place] [facility] [address] [id number] [place] [address]- 4426 December, [facility] [place] [facility] [address] [id number] [place] [address]- 4763 Nov, [facility] [place] [facility] [address] [id number] [place] [address]- 4818 Nov, [facility] [place] [facility] [address] [id number] [place] [address]- 3651 Oct, [facility] [place] [facility] [address] [id number] [place] [address]- 1658 Oct, [facility] [place] [facility] [address] [id number] [place] [address]- 8441 Aug, [facility] [place] [facility] [address] [id number] [place] [address]- 2238 Aug, [facility] [place] [facility] [address] [id number] [place] [address]- 6736 Jul, [facility] [place] [facility] [address] [id number] [place] [address]- 3524 Jul, [facility] [place] [facility] [address] [id number] [address]- 7876 04 May, 2013 [facility] [address] [id number] [place] [address]- 5517 Jan, [facility] [address] [facility] [id number] [place] [address]- 4066 Jan, [facility] [address] [facility] [id number] [place] [address]- 8166 December, [facility] [address] [id number] [place] [address]- 1944 Nov, [facility] [address] [facility] [id number] [place] [address]- 2860 25 Oct, 2012 [facility] [address] [facility] [id number] [place] [address] 2546 19 Oct, 2012 [facility] [address] [place] [address]- 4380 14 Oct, 2012 [facility] [address] [facility] [id number] [place] [address]- 4647 Oct, [facility] [address] [id number] [place] [address]- 1969 07 Oct, 2012 [facility] [id number] [address]- 1039 07 Oct, 2012 [facility] [address] [facility] [id number] [place] [address]- 8497 07 Sep, 2012 [facility] [address] [facility] [id number] [place] [address]- 6946 18 Jul, 2012 [facility] [address] [id number] [place] [address]- 7993 Jul, [facility] [address] [facility] [id number] [place] [address]- 8336 Jul, [facility] [address] [facility] [id number] [place] [address]- 0526 Jun, [facility] [place] [facility] [address] [id number] [place] [address]- 9753 Jun, [facility] [place] [facility] [address] [id number] [place] [address]- 0644 Jun, [facility] [place] [facility] [address] [id number] [place] [address]- 2546 Jun, [facility] [place] [facility] [address] [id number] [place] [address]- 4226 Mar, [facility] [place] [facility] [address] [id number] [place] [address]- 9263 Mar, [facility] [place] [facility] [address] [id number] [place] [address]- 7815 Feb, [facility] [place] [facility] [address] [id number] [place] [address]- 6901 Feb, [facility] [place] [facility] [address] [id number] [place] [address]- 7696 December, [facility] [place] [facility] [address] [id number] [place] [address]- 8008 December, [facility] [place] [facility] [address] [id number] [place] [address]- 2990 Nov, [facility] [place] [facility] [address] [id number] [place] [address]- 2546 Oct, [facility] [place] [facility] [address] [id number] [place] [address]- 2546 Oct, [facility] [place] [facility] [address] [id number] [place] [address]- 8630 Jul, [facility] [place] [facility] [address] [id number] [place] [address]- 2546 Sep, [facility] [place] [facility] [address] [id number] [place] [address]- 2546 Jul, [facility] [place] [facility] [address] [id number] [place] [address]- 2030 15 Jan, 2010 [facility] [address] [facility] [id number] [place] [address]- 3806 Jun, [facility] [address], [place] [address]- 2546 Mar, [facility] [id number], [place] [address]- 2546 Jan, [facility] [address], [place] [address]- 2546 December, [facility] [id number] [address]- 9318 Oct, [facility] [id number], [place] [address]- 8275 Sep, IMMUNIZATIONS No Known Immunizations SOCIAL HISTORY [...] rods 12/2016 Hospitalization History surgeries Hospitalization History [facility] ED- Back/Left Side Pain 06/06/2017 Hospitalization History [facility] ED- Congested, cough and SOB 11/07/2017
[2018-04-20] MEDS ORDERED: NITROGLYCERIN 0.4 MG SL TABS BTL 25'S SL PRN (16:00)
[2018-04-20] MEDS ORDERED: CATHETER FLUSH 10 ML SYR IV PRN (16:00)
[2018-04-20] MEDS ORDERED: morphine INJ 4 MG/ML 1 ML (VIAL/SYRINGE) IV PRN (16:00)
[2018-04-20] MEDS ORDERED: ACETAMINOPHEN 500 MG TAB (TYLENOL) PO PRN (16:00)
[2018-04-20] MEDS ORDERED: ONDANSETRON 4 MG/2 ML (SDV) Z0FRAN IV PRN (16:00)
--- OUTSIDE RECORDS SUMMARY | 2018-04-20 16:00 | XMS REPORT ---
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 Active 071376085 Problem Type 2 diabetes mellitus with diabetic neuropathy, unspecified E11.40 Active 47342547 Problem Diabetes type 2, controlled E11.9 Active 49763193 Problem Type 2 diabetes mellitus with hyperglycemia E11.65 Active 627031358 Problem Controlled type 2 diabetes mellitus without complication, without long -term current use of insulin E11.9 Active 565850646 Problem Chronic fatigue R53.82 Active 61239437 Problem Mood disorder F39 Active 35907158 Problem Slow transit constipation K59.01 Active 84900369 Problem Other chronic pain G89.29 Active 37547758 Problem Diabetic mononeuropathy associated with type 2 diabetes mellitus E11.41 Active 535771208 Problem Neuropathy G62.9 Active 647821531 ALLERGIES No Information ENCOUNTERS Encounter Location Date Diagnosis [place] [id number] [place] [address] 88648- 5208 Apr, [place] [address] [place] [id number] [place] [address] 92086- 4783 Mar, Type 2 diabetes mellitus with hyperglycemia E11.65 [facility] [id number] [place] [address] 61598- 2997 Feb, Seborrheic keratoses L82.1 and Type 2 diabetes mellitus with diabetic neuropathy, unspecified E11.40 [place] [address] [place] [address] 05736- 7096 Feb, Type 2 diabetes mellitus with diabetic neuropathy, unspecified E11.40 ; Renal insufficiency N28.9 and Chronic fatigue R53.82 [facility] [id number] [place] [address] 94575- 7491 Jan, Pneumonia of both lower lobes due to infectious organism J18.1 and Mood disorder F39 [facility] [id number] [place] [address] 72333- 8890 Jan, BMI 40.0-44.9, adult Z68.41 [facility] [id number] [place] [address] 99861- 8726 Jan, [facility] [address] 20026- 3571 Jan, [facility] [id number] [place] [address] 91696 -3838 Jan, Wheezes R06.2 ; Diabetes type 2, controlled E11.9 and Pneumonia of right lower lobe due to infectious organism J18.1 [facility] [id number] [place] [address] 73682- 9803 Jan, Renal insufficiency N28.9 [facility] [id number] [place] [address] 29892- 9354 Jan, Seborrheic keratoses L82.1 [facility] [id number] [place] [address] 20283- 0321 Jan, [facility] [id number] [place] [address] 09363- 5041 Jan, [facility] [id number] [place] [address] 41573- 1730 Jan, Renal insufficiency N28.9 [facility] [id number] [place] [address] 21678- 7956 Jan, [facility] [id number] [place] [address] 21501- 4739 Jan, Diabetes type 2, controlled E11.9 ; Mood disorder F39 and BMI 40.0-44.9, adult Z68.41 [facility] [id number] [place] [address] 83441- 3781 Jan, BMI 40.0-44.9, adult Z68.41 [facility] [id number] [place] [address]- 4242 December, [facility] [id number] [place] [address] 45844- 2730 December, [facility] [id number] [place] [address] 60619- 9860 December, Seborrheic keratoses L82.1 [facility] [id number] [place] [address], [place] [address]- 9268 December, Seborrheic keratoses L82.1 [facility] [id number] [place] [address] 36267- 7971 December, [facility] [id number] [address]- 3682 December, [facility] [id number] [place] [address] 51303- 8482 December, BMI 40.0-44.9, adult Z68.41 [facility] [address] [address]- 5019 December, [facility] [id number] [address]- 6173 December, [facility] [address] [address]- 8210 Nov, [facility] [id number] [address]- 5482 Nov, [facility] [address] [address]- 6423 Nov, Seborrheic keratoses L82.1 [place] [address] [id number] [place] [address] 93395- 8527 Nov, Renal insufficiency N28.9 [place] [address] 66141- 2605 Nov, [place] [address] 59079- 4845 Nov, [place] [address] 56974- 8680 Nov, [place] [address] 56488- 2175 Nov, Type 2 diabetes mellitus with diabetic neuropathy, unspecified E11.40 ; Other chronic pain G89.29 ; Bronchitis J40 ; Renal cyst N28.1 ; Pain of left foot M79.672 and Pain in right foot M79.671 [place] [address] 91600- 5509 Oct, Type 2 diabetes mellitus without complications E11.9 [place] [address] 52009- 5157 Oct, SOB (shortness of breath) R06.02 [place] [address] [place] [id number] [place] [address] 99572- 6344 Oct, SOB (shortness of breath) R06.02 [place] [address] 63222- 0458 Sep, Type 2 diabetes mellitus without complications E11.9 [place] [address] 94451- 2663 Sep, Left flank pain R10.9 [place] [address] 48180- 4943 Sep, BMI 40.0-44.9, adult Z68.41 ; Left flank pain R10.9 and Seborrheic keratoses L82.1 [place] [address] [address]- 5122 Aug, Type 2 diabetes mellitus without complications E11.9 [facility] [address] [address]- 4353 Jul, Type 2 diabetes mellitus without complications E11.9 and Abdominal pain, left lower quadrant R10.32 [facility] [address] [id number] [address] Jun, [facility] [address] [address]- 7213 Jun, Type 2 diabetes mellitus without complications E11.9 [facility] [address] [address]- 5353 Jun, Controlled type 2 diabetes mellitus without complication, without long-term current use of insulin E11.9 and Seborrheic keratoses L82.1 [facility] [address] [address] May, Acute back pain M54.9 [facility] [address] [place] [address] 90017- 2611 13 May, 2017 Type 2 diabetes mellitus without complications E11.9 [facility] [address] [address]- 4583 28 Apr, 2017 Diabetes type 2, controlled E11.9 ; Lumbago with sciatica, left side M54.42 and Diabetic mononeuropathy associated with type 2 diabetes mellitus E11.41 [facility] [address] [address]- 7751 Apr, Type 2 diabetes mellitus without complications E11.9 [facility] [address] [address]- 1214 05 Apr, 2017 [facility] [address] [address]- 9175 Mar, Type 2 diabetes mellitus without complications E11.9 [facility] [address] [address] [id number] [place] [address] 80976- 2819 Feb, Controlled type 2 diabetes mellitus without complication, without long-term current use of insulin E11.9 ; Neuropathy G62.9 and Onychomycosis B35.1 [place] [address] [place] [id number] [place] [address] 21680- 3932 15 Jan, 2017 Type 2 diabetes mellitus with diabetic neuropathy, unspecified E11.40 [place] [address] [place] [id number] [place] [address] 92886- 3437 Jan, Type 2 diabetes mellitus with diabetic neuropathy, unspecified E11.40 [place] [address] [place] [id number] [place] [address] 74206- 2849 December, Type 2 diabetes mellitus without complications E11.9 [place] [address] [place] [id number] [place] [address] 98775- 4436 December, Slow transit constipation K59.01 and Pain in right hip M25.551 [place] [address] [place] [id number] [place] [address] 97447- 7774 Nov, Type 2 diabetes mellitus without complications E11.9 [place] [address] [place] [id number] [place] [address] 90816- 2342 Oct, Lumbago with sciatica, left side M54.42 and Other chronic pain G89.29 [place] [address] [place] [address] [id number] [place] [address] 64463- 9151 Sep, Diabetes mellitus E11.9 ; Lumbago with sciatica, left side M54.42 and Type 2 diabetes mellitus without complications E11.9 [place] [address] [place] [address] [id number] [place] [address] 14353- 8552 Aug, Type 2 diabetes mellitus without complications E11.9 and FDC 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 [facility] [address] [place] [address] [id number] Aug, Dental examination Z01.20 [facility] [id number] [place] [address] [id number] Aug, Dental examination Z01.20 [facility] [address] [place] [address] 81324 -9785 Aug, Dental abscess K04.7 [facility] [address] [place] [address] 23977- 4174 Jul, Type 2 diabetes mellitus with hyperglycemia E11.65 and FDC 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 [place] [address] [place] [address] [id number] [place] [address] 56191- 8300 Jul, [place] [address] [place] [address] [id number] [place] [address] 07048- 7798 Jul, Type 2 diabetes mellitus with diabetic neuropathy, unspecified E11.40 [place] [address] [place] [address] [id number] [place] [address] 54737- 3567 Jun, Type 2 diabetes mellitus with diabetic neuropathy, unspecified E11.40 and Lumbago with sciatica, left side M54.42 [place] [address] [place] [address] 05491- 9945 May, Controlled type 2 diabetes mellitus without complication, without long-term current use of insulin E11.9 [place] [address] [place] [id number] [place] [address] 41750- 8128 08 Apr, 2016 Controlled type 2 diabetes mellitus without complication, without long-term current use of insulin E11.9 and Lumbar neuritis M54.16 [place] [address] [place] [id number] [place] [address] 90546- 2143 Mar, [place] [address] [place] [id number] [place] [address] 75562- 7064 Mar, Other chronic pain G89.29 ; Pain in left knee M25.562 ; Sciatica, left side M54.32 ; Pain in left hip M25.552 ; Type 2 diabetes mellitus with hyperglycemia E11.65 ; FDC 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 and Mood disorder F39 [place] [address] [place] [id number] [place] [address] 28890- 4713 December, Diabetes type 2, controlled E11.9 [place] [address] [place] [id number] [place] [address] 71277- 4192 December, Diabetes type 2, controlled E11.9 [facility] [address] [address] [id number] [place] [address] 32379- 5995 Oct, Shoulder pain, right M25.511 and Knee pain, right M25.561 [place] [address] [place] [id number] [place] [address] 05376- 7280 Oct, Knee pain, left M25.562 [place] [address] [place] [id number] [place] [address] 57245- 5712 Sep, Diabetes mellitus E11.9 and Knee pain M25.569 [place] [address] [place] [id number] [place] [address] 83528- 2586 Sep, [place] [address] [place] [id number] [place] [address] 63459- 0916 Jun, Type 2 diabetes mellitus with diabetic neuropathy, unspecified E11.40 and Type 2 diabetes mellitus with hyperglycemia E11.65 [place] [address] [place] [id number] [place] [address] 38336- 7436 May, Diabetes mellitus E11.9 [place] [address] [place] [id number] [place] [address] 89468- 4555 May, Diabetes mellitus E11.9 and Lumbago with sciatica, left side M54.42 [place] [address] [place] [id number] [place] [address] 23554- 5518 Jan, Osteoarthritis of knees, bilateral 715.96 [place] [address] [place] [id number] [place] [address] 08679- 6551 December, [place] [address] [place] [address] [id number] [place] [address] 76105- 9959 December, Knee pain, bilateral 719.46 [place] [address] [place] [id number] [place] [address] 10546- 8822 29 Nov, 2014 Knee pain, bilateral 719.46 [facility] [address] [id number] [place] [address]- 9098 14 Nov, 2014 [facility] [address] [id number] [place] [address]- 1717 13 Nov, 2014 [facility] [address] [id number] [place] [address]- 4798 Oct, [facility] [address] [id number] [place] [address]- 7070 Oct, [facility] [address] [id number] [place] [address], [place]- 7569 Aug, [facility] [address] [facility] [id number] [place] [address]- 8320 Aug, [facility] [address] [place] [address]- 9338 17 Jul, 2014 [facility] [address] [id number] [place] [address]- 4341 17 Jul, 2014 [facility] [address] [place] [address]- 9911 Jun, [facility] [address] [place] [address] [id number] [place] [address]- 4404 17 Jun, 2014 [facility] [address] [id number] [place] [address]- 6517 15 May, 2014 [facility] [address] [id number] [place] [address]- 4957 15 May, 2014 [facility] [address] [facility] [id number] [place] 7658 15 Apr, 2014 [facility] [place] [facility] [address] [facility] [id number] [place] [address]- 6063 15 Apr, 2014 [facility] [address] [facility] [id number] [place] 9693 Apr, [facility] [place] [facility] [address] [id number] [place] [address]- 2236 Apr, [facility] [place] [facility] [address] [id number] [place] [address]- 5669 Feb, [facility] [place] [facility] [address] [id number] [place] [address]- 9752 Feb, [facility] [place] [facility] [address] [id number] [place] [address]- 9649 December, [facility] [place] [facility] [address] [id number] [place] 8469 December, [facility] [place] [facility] [address] [id number] [place] [address]- 1419 December, [facility] [place] [facility] [address] [id number] [place] [address]- 4706 December, [facility] [place] [facility] [address] [id number] [place] [address]- 0605 Nov, [facility] [place] [facility] [address] [id number] [place] [address]- 1828 Nov, [facility] [place] [facility] [address] [id number] [place] [address]- 4094 Oct, [facility] [place] [facility] [address] [id number] [place] [address]- 6916 Oct, [facility] [place] [facility] [address] [id number] [place] [address]- 5139 Aug, [facility] [place] [facility] [address] [id number] [place] [address]- 6501 Aug, [facility] [place] [facility] [address] [id number] [place] [address]- 7586 Jul, [facility] [place] [facility] [address] [id number] [place] [address]- 2255 Jul, [facility] [place] [facility] [address] [id number] [place] [address]- 7326 04 May, 2013 [facility] [address] [id number] [place] [address]- 5561 Jan, [facility] [address] [facility] [id number] [place] [address]- 1736 Jan, [facility] [address] [facility] [id number] [place] [address]- 7996 December, [facility] [address] [id number] [place] [address]- 9288 Nov, [facility] [address] [facility] [id number] [place] [address]- 5142 25 Oct, 2012 [facility] [address] [facility] [id number] [place] [address] 2546 19 Oct, 2012 [facility] [address] [place] [address]- 0984 14 Oct, 2012 [facility] [address] [facility] [id number] [place] [address]- 7526 Oct, [facility] [id number] [place] [address]- 7273 07 Oct, 2012 [facility] [id number] [place] [address]- 4324 07 Oct, 2012 [facility] [address] [facility] [id number] [place] [address]- 7494 07 Sep, 2012 [facility] [address] [facility] [id number] [place] [address]- 0026 18 Jul, 2012 [facility] [address] [id number] [place] [address]- 3059 Jul, [facility] [address] [facility] [id number] [place] [address]- 1386 Jul, [facility] [address] [facility] [id number] [place] [address]- 2264 Jun, [facility] [place] [facility] [address] [id number] [place] [address]- 2803 Jun, [facility] [place] [facility] [address] [id number] [place] [address]- 5233 Jun, [facility] [place] [facility] [address] [id number] [place] [address]- 2546 Jun, [facility] [place] [facility] [address] [id number] [place] [address]- 8496 Mar, [facility] [place] [facility] [address] [id number] [place] [address]- 5578 Mar, [facility] [place] [facility] [address] [id number] [place] [address]- 5049 Feb, [facility] [place] [facility] [address] [id number] [place] [address]- 8501 Feb, [facility] [place] [facility] [address] [id number] [place] [address]- 3546 December, [facility] [place] [facility] [address] [id number] [place] [address]- 4451 December, [facility] [place] [facility] [address] [id number] [place] [address]- 7110 Nov, [facility] [place] [facility] [address] [id number] [place] [address]- 2546 Oct, [facility] [place] [facility] [address] [id number] [place] [address]- 2546 Oct, [facility] [place] [facility] [address] [id number] [place] [address]- 6949 Jul, [facility] [place] [facility] [address] [id number] [place] [address]- 2546 Sep, [facility] [place] [facility] [address] [id number] [place] [address]- 2546 Jul, [facility] [place] [facility] [address] [id number] [place] [address]- 3733 15 Jan, 2010 [facility] [address] [facility] [id number] [place] [address]- 3136 Jun, [facility] [id number] [address]- 2546 Mar, [facility] [id number] [address]- 2546 Jan, [facility] [address] [address]- 2546 December, [facility] [id number] [address] 2546 Oct, [facility] [id number] [address]- 8256 Sep, IMMUNIZATIONS No Known Immunizations SOCIAL HISTORY Never Assessed REASON FOR VISIT BP Reduction Challenge BP F/U PLAN OF CARE VITAL SIGNS Height 67 in 2017-12-13 Weight 266.7 lbs 2017-12-13 BMI 41.77 kg/m2 2017-12-13 Blood pressure systolic 154 mmHg 2017-12-13 Blood pressure diastolic 92 mmHg 2017-12-13 MEDICATIONS Unknown Medications RESULTS No Results PROCEDURES [...] 12/2016 Hospitalization History surgeries Hospitalization History [facility] ED- Back/Left Side Pain 06/06/[address] [facility] ED- Congested, cough and SOB 11/07/2017
--- OUTSIDE RECORDS SUMMARY | 2018-04-20 16:00 | XMS REPORT ---
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 Active 417430499 Problem Type 2 diabetes mellitus with diabetic neuropathy, unspecified E11.40 Active 15725750 Problem Diabetes type 2, controlled E11.9 Active 24966788 Problem Type 2 diabetes mellitus with hyperglycemia E11.65 Active 987372641 Problem Controlled type 2 diabetes mellitus without complication, without long -term current use of insulin E11.9 Active 200501256 Problem Chronic fatigue R53.82 Active 08732482 Problem Mood disorder F39 Active 90366887 Problem Slow transit constipation K59.01 Active 94719375 Problem Other chronic pain G89.29 Active 78440641 Problem Diabetic mononeuropathy associated with type 2 diabetes mellitus E11.41 Active 496115616 Problem Neuropathy G62.9 Active 792469105 ALLERGIES No Information ENCOUNTERS Encounter Location Date Diagnosis [place] [id number] [place] [address] 89660- 9972 Apr, [place] [address] [place] [id number] [place] [address] 63099- 8682 Mar, Type 2 diabetes mellitus with hyperglycemia E11.65 [facility] [address] [place] [id number] [place] [address] 64148- 6002 Feb, Seborrheic keratoses L82.1 and Type 2 diabetes mellitus with diabetic neuropathy, unspecified E11.40 [place] [address] [place] [id number] [place] [address] 91761- 0519 Feb, Type 2 diabetes mellitus with diabetic neuropathy, unspecified E11.40 ; Renal insufficiency N28.9 and Chronic fatigue R53.82 [facility] [address] [place] [id number] [place] [address] 56698- 6058 Jan, Pneumonia of both lower lobes due to infectious organism J18.1 and Mood disorder F39 [facility] [address] [place] [id number] [place] [address] 42323- 9355 Jan, BMI 40.0-44.9, adult Z68.41 [facility] [address] [place] [id number] [place] [address] 55964- 4442 Jan, [facility] [address] 97032- 6301 Jan, [facility] [address] [place] [id number] [place] [address] 86246 -6789 Jan, Wheezes R06.2 ; Diabetes type 2, controlled E11.9 and Pneumonia of right lower lobe due to infectious organism J18.1 [facility] [address] [place] [id number] [place] [address] 03153- 1913 Jan, Renal insufficiency N28.9 [facility] [address] [place] [address] [id number] [place] [address] 70164- 9230 Jan, Seborrheic keratoses L82.1 [facility] [address] [place] [id number] [place] [address] 07943- 7074 Jan, [facility] [address] [id number] [place] [address] 28722- 0429 Jan, [facility] [address] [place] [address] [id number] [place] [address] 96381- 7541 Jan, Renal insufficiency N28.9 [facility] [address] [place] [address] [id number] [place] [address] 98608- 4275 Jan, [facility] [address] [place] [id number] [place] [address] 82537- 6250 Jan, Diabetes type 2, controlled E11.9 ; Mood disorder F39 and BMI 40.0-44.9, adult Z68.41 [facility] [address] [place] [id number] [place] [address] 29185- 6299 Jan, BMI 40.0-44.9, adult Z68.41 [facility] [address] [place] [id number] [address]- 4996 December, [facility] [address] [place] [address] [id number] [place] [address] 32384- 2539 December, [facility] [address] [place] [address] [id number] [place] [address] 22700- 4750 December, Seborrheic keratoses L82.1 [facility] [address] [place] [address] [id number] [place] [address], [place] [address]- 7262 December, Seborrheic keratoses L82.1 [facility] [address] [place] [id number] [place] [address] 79889- 1880 December, [facility] [id number] [address]- 0099 December, [facility] [address] [place] [id number] [place] [address] 93606- 9709 December, BMI 40.0-44.9, adult Z68.41 [facility] [address] [address]- 1683 December, [facility] [address] [place] [address] [id number] [address]- 8269 December, [facility] [address] [address]- 5129 Nov, [facility] [address] [address] [id number] [address]- 2488 Nov, [facility] [address] [address]- 7994 Nov, Seborrheic keratoses L82.1 [place] [address] [place] [id number] [place] [address] 10139- 8467 Nov, Renal insufficiency N28.9 [place] [address] 53079- 1855 Nov, [place] [address] 82964- 8277 Nov, [place] [address] 80352- 2952 Nov, [place] [address] 41231- 1654 Nov, Type 2 diabetes mellitus with diabetic neuropathy, unspecified E11.40 ; Other chronic pain G89.29 ; Bronchitis J40 ; Renal cyst N28.1 ; Pain of left foot M79.672 and Pain in right foot M79.671 [place] [address] 54837- 6351 Oct, Type 2 diabetes mellitus without complications E11.9 [place] [address] 80772- 2218 Oct, SOB (shortness of breath) R06.02 [place] [address] [place] [id number] [place] [address] 47199- 8748 Oct, SOB (shortness of breath) R06.02 [place] [address] 24239- 9609 Sep, Type 2 diabetes mellitus without complications E11.9 [place] [address] 94310- 6629 Sep, Left flank pain R10.9 [place] [address] 84049- 0095 Sep, BMI 40.0-44.9, adult Z68.41 ; Left flank pain R10.9 and Seborrheic keratoses L82.1 [place] [address] [address]- 3979 Aug, Type 2 diabetes mellitus without complications E11.9 [facility] [address] [address]- 2886 Jul, Type 2 diabetes mellitus without complications E11.9 and Abdominal pain, left lower quadrant R10.32 [facility] [address] [id number] [address] Jun, [facility] [address] [address]- 7917 Jun, Type 2 diabetes mellitus without complications E11.9 [facility] [address] [address]- 1018 Jun, Controlled type 2 diabetes mellitus without complication, without long-term current use of insulin E11.9 and Seborrheic keratoses L82.1 [facility] [address] [address]3533 May, Acute back pain M54.9 [facility] [address] [place] [address] 12265- 2283 13 May, 2017 Type 2 diabetes mellitus without complications E11.9 [facility] [address] [address]- 0358 28 Apr, 2017 Diabetes type 2, controlled E11.9 ; Lumbago with sciatica, left side M54.42 and Diabetic mononeuropathy associated with type 2 diabetes mellitus E11.41 [facility] [address], [place] [address]- 2539 Apr, Type 2 diabetes mellitus without complications E11.9 [facility] [address], [place] [address]- 2629 05 Apr, 2017 [facility] [address], [place] [address]- 7104 Mar, Type 2 diabetes mellitus without complications E11.9 [facility] [address] [place] [id number] [place] [address] 78932- 6147 Feb, Controlled type 2 diabetes mellitus without complication, without long-term current use of insulin E11.9 ; Neuropathy G62.9 and Onychomycosis B35.1 [place] [address] [place] [id number] [place] [address] 08696- 0206 15 Jan, 2017 Type 2 diabetes mellitus with diabetic neuropathy, unspecified E11.40 [place] [address] [place] [id number] [place] [address] 70061- 8191 Jan, Type 2 diabetes mellitus with diabetic neuropathy, unspecified E11.40 [place] [address] [place] [id number] [place] [address] 07059- 5466 December, Type 2 diabetes mellitus without complications E11.9 [place] [address] [place] [id number] [place] [address] 40988- 0830 December, Slow transit constipation K59.01 and Pain in right hip M25.551 [place] [address] [place] [id number] [place] [address] 17987- 0351 Nov, Type 2 diabetes mellitus without complications E11.9 [place] [address] [place] [id number] [place] [address] 25538- 7441 Oct, Lumbago with sciatica, left side M54.42 and Other chronic pain G89.29 [place] [address] [place] [id number] [place] [address] 10612- 4385 Sep, Diabetes mellitus E11.9 ; Lumbago with sciatica, left side M54.42 and Type 2 diabetes mellitus without complications E11.9 [place] [address] [place] [id number] [place] [address] 57164- 1870 Aug, Type 2 diabetes mellitus without complications E11.9 and correction 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 [facility] [address] [place] [address] [id number] Aug, Dental examination Z01.20 [facility] [address] [place] [id number] [place] [address] [id number] Aug, Dental examination Z01.20 [facility] [address] [place] [address] 05103 -5795 Aug, Dental abscess K04.7 [facility] [address] [place] [address] 51706- 2157 Jul, Type 2 diabetes mellitus with hyperglycemia E11.65 and correction 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 [place] [address] [place] [id number] [place] [address] 82474- 1581 Jul, [place] [address] [place] [id number] [place] [address] 13095- 0792 Jul, Type 2 diabetes mellitus with diabetic neuropathy, unspecified E11.40 [place] [address] [place] [id number] [place] [address] 34534- 8379 Jun, Type 2 diabetes mellitus with diabetic neuropathy, unspecified E11.40 and Lumbago with sciatica, left side M54.42 [place] [address] [place] [address] 36348- 6454 May, Controlled type 2 diabetes mellitus without complication, without long-term current use of insulin E11.9 [place] [address] [place] [id number] [place] [address] 00653- 0035 08 Apr, 2016 Controlled type 2 diabetes mellitus without complication, without long-term current use of insulin E11.9 and Lumbar neuritis M54.16 [place] [address] [place] [id number] [place] [address] 49342- 2129 Mar, [place] [address] [place] [id number] [place] [address] 60589- 8512 Mar, Other chronic pain G89.29 ; Pain in left knee M25.562 ; Sciatica, left side M54.32 ; Pain in left hip M25.552 ; Type 2 diabetes mellitus with hyperglycemia E11.65 ; correction 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 and Mood disorder F39 [place] [address] [place] [id number] [place] [address] 74276- 8488 December, Diabetes type 2, controlled E11.9 [place] [address] [place] [id number] [place] [address] 85733- 2648 December, Diabetes type 2, controlled E11.9 [facility] [address] [place] [id number] [place] [address] 40821- 0601 Oct, Shoulder pain, right M25.511 and Knee pain, right M25.561 [place] [address] [place] [id number] [place] [address] 61708- 1078 Oct, Knee pain, left M25.562 [place] [address] [place] [id number] [place] [address] 27591- 8888 Sep, Diabetes mellitus E11.9 and Knee pain M25.569 [place] [address] [place] [id number] [place] [address] 52390- 3194 Sep, [place] [address] [place] [id number] [place] [address] 03913- 7164 Jun, Type 2 diabetes mellitus with diabetic neuropathy, unspecified E11.40 and Type 2 diabetes mellitus with hyperglycemia E11.65 [place] [address] [place] [id number] [place] [address] 92217- 4203 May, Diabetes mellitus E11.9 [place] [address] [place] [id number] [place] [address] 98026- 6651 May, Diabetes mellitus E11.9 and Lumbago with sciatica, left side M54.42 [place] [address] [place] [id number] [place] [address] 59560- 8611 Jan, Osteoarthritis of knees, bilateral 715.96 [place] [address] [place] [id number] [place] [address] 06672- 2525 December, [place] [address] [place] [id number] [place] [address] 96545- 8590 December, Knee pain, bilateral 719.46 [place] [address] [place] [id number] [place] [address] 48646- 5957 29 Nov, 2014 Knee pain, bilateral 719.46 [facility] [address] [id number] [place] [address]- 1561 14 Nov, 2014 [facility] [address] [id number] [place] [address]- 2052 13 Nov, 2014 [facility] [address] [id number] [place] [address]- 8999 Oct, [facility] [address] [id number] [place] [address]- 2792 Oct, [facility] [address] [place] [id number] [place] [address], [place]- 8535 Aug, [facility] [address] [facility] [id number] [place] [address]- 9467 Aug, [facility] [address] [place] [address]- 0325 17 Jul, 2014 [facility] [address] [id number] [place] [address]- 8455 17 Jul, 2014 [facility] [address] [place] [address]- 8484 Jun, [facility] [address] [place] [id number] [place] [address]- 9870 17 Jun, 2014 [facility] [address] [id number] [place] [address]- 5285 15 May, 2014 [facility] [address] [id number] [place] [address]- 2557 15 May, 2014 [facility] [address] [facility] [id number] [place] 3927 15 Apr, 2014 [facility] [place] [facility] [address] [facility] [id number] [place] [address]- 4210 15 Apr, 2014 [facility] [address] [facility] [id number] [place] 5901 Apr, [facility] [place] [facility] [address] [id number] [place] [address]- 8777 Apr, [facility] [place] [facility] [address] [id number] [place] [address]- 2498 Feb, [facility] [place] [facility] [address] [id number] [place] [address]- 6808 Feb, [facility] [place] [facility] [address] [id number] [place] [address]- 0942 December, [facility] [place] [facility] [address] [id number] [place]- 6979 December, [facility] [place] [facility] [address] [id number] [place] [address]- 8364 December, [facility] [place] [facility] [address] [id number] [place] [address]- 0375 December, [facility] [place] [facility] [address] [id number] [place] [address]- 5252 Nov, [facility] [place] [facility] [address] [id number] [place] [address]- 7788 Nov, [facility] [place] [facility] [address] [id number] [place] [address]- 4751 Oct, [facility] [place] [facility] [address] [id number] [place] [address]- 7247 Oct, [facility] [place] [facility] [address] [id number] [place] [address]- 1434 Aug, [facility] [place] [facility] [address] [id number] [place] [address]- 6368 Aug, [facility] [place] [facility] [address] [id number] [place] [address]- 1796 Jul, [facility] [place] [facility] [address] [id number] [place] [address]- 3694 Jul, [facility] [place] [facility] [address] [id number] [address]- 1346 04 May, 2013 [facility] [address] [id number] [place] [address]- 9678 Jan, [facility] [address] [facility] [id number] [place] [address]- 6826 Jan, [facility] [address] [facility] [id number] [place] [address]- 1736 December, [facility] [address] [id number] [place] [address]- 8538 Nov, [facility] [address] [facility] [id number] [place] [address]- 5119 25 Oct, 2012 [facility] [address] [facility] [id number] [place] [address] 2546 19 Oct, 2012 [facility] [id number] [place] [address]- 2550 14 Oct, 2012 [facility] [address] [facility] [id number] [place] [address]- 1906 Oct, [facility] [address] [place] [id number] [place] [address]- 2535 07 Oct, 2012 [facility] [address] [place] [address] [id number] [place] [address]- 4369 07 Oct, 2012 [facility] [address] [facility] [id number] [place] [address]- 1768 07 Sep, 2012 [facility] [address] [facility] [id number] [place] [address]- 6568 18 Jul, 2012 [facility] [address] [id number] [place] [address]- 1592 Jul, [facility] [address] [facility] [id number] [place] [address]- 0276 Jul, [facility] [address] [facility] [id number] [place] [address]- 3365 Jun, [facility] [place] [facility] [address] [id number] [place] [address]- 1585 Jun, [facility] [place] [facility] [address] [id number] [place] [address]- 9708 Jun, [facility] [place] [facility] [address] [id number] [place] [address]- 2546 Jun, [facility] [place] [facility] [address] [id number] [place] [address]- 8086 Mar, [facility] [place] [facility] [address] [id number] [place] [address]- 4185 Mar, [facility] [place] [facility] [address] [id number] [place] [address]- 2385 Feb, [facility] [place] [facility] [address] [id number] [place] [address]- 2316 Feb, [facility] [place] [facility] [address] [id number] [place] [address]- 2566 December, [facility] [place] [facility] [address] [id number] [place] [address]- 6506 December, [facility] [place] [facility] [address] [id number] [place] [address]- 0760 Nov, [facility] [place] [facility] [address] [id number] [place] [address]- 2546 Oct, [facility] [place] [facility] [address] [id number] [place] [address]- 2546 Oct, [facility] [place] [facility] [address] [id number] [place] [address]- 2634 Jul, [facility] [place] [facility] [address] [id number] [place] [address]- 2546 Sep, [facility] [place] [facility] [address] [id number] [place] [address]- 2546 Jul, [facility] [place] [facility] [address] [id number] [place] [address]- 1325 15 Jan, 2010 [facility] [address] [facility] [id number] [place] [address]- 9026 Jun, [facility] [address] [address]- 2546 Mar, [facility] [id number] [address]- 2546 Jan, [facility] [address], [place] [address]- 2546 December, [facility] [id number] [address]- 7976 Oct, [facility] [id number] [address]- 4106 Sep, IMMUNIZATIONS No Known Immunizations SOCIAL HISTORY [...] Hospitalization History surgeries Hospitalization History [facility] ED- Back/Left Side Pain 06/06/2017 Hospitalization History [facility] ED- Congested, cough and SOB 11/07/2017
--- OUTSIDE RECORDS SUMMARY | 2018-04-20 16:01 | XMS REPORT ---
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 696691209 Problem Type 2 diabetes mellitus with diabetic neuropathy, unspecified E11.40 Active 33751743 Problem Diabetes type 2, controlled E11.9 Active 37039669 Problem Type 2 diabetes mellitus with hyperglycemia E11.65 Active 673171419 Problem Controlled type 2 diabetes mellitus without complication, without long -term current use of insulin E11.9 Active 473894874 Problem Chronic fatigue R53.82 Active 26452845 Problem Mood disorder F39 Active 03542346 Problem Slow transit constipation K59.01 Active 40953360 Problem Other chronic pain G89.29 Active 88374845 Problem Diabetic mononeuropathy associated with type 2 diabetes mellitus E11.41 Active 629998537 Problem Neuropathy G62.9 Active [id number] ALLERGIES No Information ENCOUNTERS Encounter Location Date Diagnosis [place] [id number] [place] [address] 00908- 1270 Apr, [place] [address] [place] [id number] [place] [address] 14501- 3070 Mar, Type 2 diabetes mellitus with hyperglycemia E11.65 [facility] [address] [place] [id number] [place] [address] 91288- 0689 Feb, Seborrheic keratoses L82.1 and Type 2 diabetes mellitus with diabetic neuropathy, unspecified E11.40 [place] [address] [place] [id number] [place] [address] 83607- 0441 Feb, Type 2 diabetes mellitus with diabetic neuropathy, unspecified E11.40 ; Renal insufficiency N28.9 and Chronic fatigue R53.82 [facility] [address] [place] [id number] [place] [address] 64389- 6157 Jan, Pneumonia of both lower lobes due to infectious organism J18.1 and Mood disorder F39 [facility] [address] [place] [id number] [place] [address] 02428- 1057 Jan, BMI 40.0-44.9, adult Z68.41 [facility] [address] [place] [id number] [place] [address] 32572- 5981 Jan, [facility] [address] 08342- 9560 Jan, [facility] [address] [place] [id number] [place] [address] 21130 -3031 Jan, Wheezes R06.2 ; Diabetes type 2, controlled E11.9 and Pneumonia of right lower lobe due to infectious organism J18.1 [facility] [address] [place] [id number] [place] [address] 55837- 6024 Jan, Renal insufficiency N28.9 [facility] [address] [place] [address] [id number] [place] [address] 73887- 1785 Jan, Seborrheic keratoses L82.1 [facility] [address] [place] [id number] [place] [address] 62535- 1543 Jan, [facility] [address] [place] [id number] [place] [address] 64773- 6643 Jan, [facility] [address] [place] [id number] [place] [address] 61382- 4665 Jan, Renal insufficiency N28.9 [facility] [address] [place] [id number] [place] [address] 76887- 0434 Jan, [facility] [address] [place] [id number] [place] [address] 09511- 4239 Jan, Diabetes type 2, controlled E11.9 ; Mood disorder F39 and BMI 40.0-44.9, adult Z68.41 [facility] [address] [place] [id number] [place] [address] 03955- 3001 Jan, BMI 40.0-44.9, adult Z68.41 [facility] [address] [place] [id number] [place] [address]- 6127 December, [facility] [address] [place] [id number] [place] [address] 98495- 0311 December, [facility] [address] [place] [id number] [place] [address] 99040- 7680 December, Seborrheic keratoses L82.1 [facility] [address] [place] [id number] [place] [address], [place] [address]- 1733 December, Seborrheic keratoses L82.1 [facility] [address] [place] [id number] [place] [address] 19309- 7313 December, [facility] [address] [place] [address] [id number] [address]- 7775 December, [facility] [address] [place] [id number] [place] [address] 25310- 8840 December, BMI 40.0-44.9, adult Z68.41 [facility] [address] [address]- 5611 December, [facility] [address] [place] [id number] [address]- 9870 December, [facility] [address] [address]- 7558 Nov, [facility] [address] [place] [id number] [address]- 0564 Nov, [facility] [address], [place] [address]- 8491 Nov, Seborrheic keratoses L82.1 [place] [address] [place] [id number] [place] [address] 99879- 6265 Nov, Renal insufficiency N28.9 [place] [address] 82230- 8308 Nov, [place] [address] 22219- 6175 Nov, [place] [address] 45347- 3152 Nov, [place] [address] 54529- 6358 Nov, Type 2 diabetes mellitus with diabetic neuropathy, unspecified E11.40 ; Other chronic pain G89.29 ; Bronchitis J40 ; Renal cyst N28.1 ; Pain of left foot M79.672 and Pain in right foot M79.671 [place] [address] 48668- 7671 Oct, Type 2 diabetes mellitus without complications E11.9 [place] [address] 60595- 2458 Oct, SOB (shortness of breath) R06.02 [place] [address] [place] [id number] [place] [address] 02921- 8232 Oct, SOB (shortness of breath) R06.02 [place] [address] 86904- 6574 Sep, Type 2 diabetes mellitus without complications E11.9 [place] [address] 17353- 5535 Sep, Left flank pain R10.9 [place] [address] 59779- 8943 Sep, BMI 40.0-44.9, adult Z68.41 ; Left flank pain R10.9 and Seborrheic keratoses L82.1 [place] [address], [place] [address]- 9509 Aug, Type 2 diabetes mellitus without complications E11.9 [facility] [address], [place] [address]- 2212 Jul, Type 2 diabetes mellitus without complications E11.9 and Abdominal pain, left lower quadrant R10.32 [facility] [address] [id number] [address] Jun, [facility] [address], [place] [address]- 7281 Jun, Type 2 diabetes mellitus without complications E11.9 [facility] [address], [place] [address]- 4494 Jun, Controlled type 2 diabetes mellitus without complication, without long-term current use of insulin E11.9 and Seborrheic keratoses L82.1 [facility] [address], [place] [address]58 May, Acute back pain M54.9 [facility] [address] [place] [address] 24930- 8424 13 May, 2017 Type 2 diabetes mellitus without complications E11.9 [facility] [address], [place] [address]- 7299 28 Apr, 2017 Diabetes type 2, controlled E11.9 ; Lumbago with sciatica, left side M54.42 and Diabetic mononeuropathy associated with type 2 diabetes mellitus E11.41 [facility] [address], [place] [address]- 0867 Apr, Type 2 diabetes mellitus without complications E11.9 [facility] [address], [place] [address]- 8940 05 Apr, 2017 [facility] [address], [place] [address]- 1928 Mar, Type 2 diabetes mellitus without complications E11.9 [facility] [address] [place] [id number] [place] [address] 41693- 0040 Feb, Controlled type 2 diabetes mellitus without complication, without long-term current use of insulin E11.9 ; Neuropathy G62.9 and Onychomycosis B35.1 [place] [address] [place] [id number] [place] [address] 43553- 3413 15 Jan, 2017 Type 2 diabetes mellitus with diabetic neuropathy, unspecified E11.40 [place] [address] [place] [id number] [place] [address] 79369- 9816 Jan, Type 2 diabetes mellitus with diabetic neuropathy, unspecified E11.40 [place] [address] [place] [id number] [place] [address] 08148- 3539 December, Type 2 diabetes mellitus without complications E11.9 [place] [address] [place] [id number] [place] [address] 65341- 1357 December, Slow transit constipation K59.01 and Pain in right hip M25.551 [place] [address] [place] [id number] [place] [address] 68976- 6256 Nov, Type 2 diabetes mellitus without complications E11.9 [place] [address] [place] [id number] [place] [address] 91630- 6822 Oct, Lumbago with sciatica, left side M54.42 and Other chronic pain G89.29 [place] [address] [place] [id number] [place] [address] 82953- 6116 Sep, Diabetes mellitus E11.9 ; Lumbago with sciatica, left side M54.42 and Type 2 diabetes mellitus without complications E11.9 [place] [address] [place] [id number] [place] [address] 15269- 1972 Aug, Type 2 diabetes mellitus without complications E11.9 and assisted 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 [facility] [address] [place] [address] [id number] Aug, Dental examination Z01.20 [facility] [address] [place] [id number] [place] [address] [id number] Aug, Dental examination Z01.20 [facility] [address] [place] [address] 25924 -1255 Aug, Dental abscess K04.7 [facility] [address] [place] [address] 89751- 9818 Jul, Type 2 diabetes mellitus with hyperglycemia E11.65 and assisted 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 [place] [address] [place] [id number] [place] [address] 28043- 2282 Jul, [place] [address] [place] [id number] [place] [address] 93961- 1898 Jul, Type 2 diabetes mellitus with diabetic neuropathy, unspecified E11.40 [place] [address] [place] [id number] [place] [address] 11314- 1726 Jun, Type 2 diabetes mellitus with diabetic neuropathy, unspecified E11.40 and Lumbago with sciatica, left side M54.42 [place] [address] [place] [address] 18784- 9366 May, Controlled type 2 diabetes mellitus without complication, without long-term current use of insulin E11.9 [place] [address] [place] [id number] [place] [address] 84430- 7812 08 Apr, 2016 Controlled type 2 diabetes mellitus without complication, without long-term current use of insulin E11.9 and Lumbar neuritis M54.16 [place] [address] [place] [id number] [place] [address] 07379- 8011 Mar, [place] [address] [place] [id number] [place] [address] 03325- 9161 Mar, Other chronic pain G89.29 ; Pain in left knee M25.562 ; Sciatica, left side M54.32 ; Pain in left hip M25.552 ; Type 2 diabetes mellitus with hyperglycemia E11.65 ; assisted 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 and Mood disorder F39 [place] [address] [place] [id number] [place] [address] 32640- 2289 December, Diabetes type 2, controlled E11.9 [place] [address] [place] [id number] [place] [address] 74663- 0459 December, Diabetes type 2, controlled E11.9 [facility] [address] [place] [id number] [place] [address] 31810- 6834 Oct, Shoulder pain, right M25.511 and Knee pain, right M25.561 [place] [address] [place] [id number] [place] [address] 63179- 0133 Oct, Knee pain, left M25.562 [place] [address] [place] [id number] [place] [address] 69318- 3464 Sep, Diabetes mellitus E11.9 and Knee pain M25.569 [place] [address] [place] [id number] [place] [address] 80718- 8963 Sep, [place] [address] [place] [id number] [place] [address] 68463- 0396 Jun, Type 2 diabetes mellitus with diabetic neuropathy, unspecified E11.40 and Type 2 diabetes mellitus with hyperglycemia E11.65 [place] [address] [place] [id number] [place] [address] 73794- 3092 May, Diabetes mellitus E11.9 [place] [address] [place] [id number] [place] [address] 22273- 9134 May, Diabetes mellitus E11.9 and Lumbago with sciatica, left side M54.42 [place] [address] [place] [id number] [place] [address] 71717- 8772 Jan, Osteoarthritis of knees, bilateral 715.96 [place] [address] [place] [id number] [place] [address] 48284- 7561 December, [place] [address] [place] [id number] [place] [address] 02764- 7219 December, Knee pain, bilateral 719.46 [place] [address] [place] [id number] [place] [address] 22790- 3806 29 Nov, 2014 Knee pain, bilateral 719.46 [facility] [address] [id number] [place] [address]- 0171 14 Nov, 2014 [facility] [address] [id number] [place] [address]- 5514 13 Nov, 2014 [facility] [address] [id number] [place] [address]- 6900 Oct, [facility] [address] [id number] [place] [address]- 1884 Oct, [facility] [address] [place] [id number] [place] [address], [place] 7754 Aug, [facility] [address] [facility] [id number] [place] [address]- 3698 Aug, [facility] [address] [place] [address]- 5303 17 Jul, [address] [facility] [address] [id number] [place] [address]- 8005 17 Jul, [address] [facility] [address] [place] [address]- 2026 Jun, [facility] [address] [place] [id number] [place] [address]- 2490 17 Jun, [address] [facility] [address] [id number] [place] [address]- 3248 15 May, [address] [facility] [address] [id number] [place] [address]- 2806 15 May, 2014 [facility] [address] [facility] [id number] [place]- 2331 15 Apr, 2014 [facility] [place] [facility] [address] [facility] [id number] [place] [address]- 0495 15 Apr, [address] [facility] [address] [facility] [id number] [place] 0996 Apr, [facility] [place] [facility] [address] [id number] [place] [address]- 9402 Apr, [facility] [place] [facility] [address] [id number] [place] [address]- 8194 Feb, [facility] [place] [facility] [address] [id number] [place] [address]- 4275 Feb, [facility] [place] [facility] [address] [id number] [place] [address]- 4785 December, [facility] [place] [facility] [address] [id number] [place] 6523 December, [facility] [place] [facility] [address] [id number] [place] [address]- 9418 December, [facility] [place] [facility] [address] [id number] [place] [address]- 4273 December, [facility] [place] [facility] [address] [id number] [place] [address]- 1478 Nov, [facility] [place] [facility] [address] [id number] [place] [address]- 4940 Nov, [facility] [place] [facility] [address] [id number] [place] [address]- 7272 Oct, [facility] [place] [facility] [address] [id number] [place] [address]- 5257 Oct, [facility] [place] [facility] [address] [id number] [place] [address]- 2035 Aug, [facility] [place] [facility] [address] [id number] [place] [address]- 6576 Aug, [facility] [place] [facility] [address] [id number] [place] [address]- 7446 Jul, [facility] [place] [facility] [address] [id number] [place] [address]- 5179 Jul, [facility] [place] [facility] [address] [id number] [address]- 3056 04 May, 2013 [facility] [address] [id number] [place] [address]- 7185 Jan, [facility] [address] [facility] [id number] [place] [address]- 4746 Jan, [facility] [address] [facility] [id number] [place] [address]- 9386 December, [facility] [address] [id number] [place] [address]- 0255 Nov, [facility] [address] [facility] [id number] [place] [address]- 0383 25 Oct, 2012 [facility] [address] [facility] [id number] [place] [address] 2546 19 Oct, 2012 [facility] [address] [place] [address]- 5890 14 Oct, 2012 [facility] [address] [facility] [id number] [place] [address]- 5751 Oct, [facility] [address] [place] [address] [id number] [place] [address]- 1531 07 Oct, 2012 [facility] [id number] [place] [address]- 0810 07 Oct, [address] [facility] [address] [facility] [id number] [place] [address]- 0457 07 Sep, 2012 [facility] [address] [facility] [id number] [place] [address]- 5855 18 Jul, 2012 [facility] [address] [id number] [place] [address]- 8505 Jul, [facility] [address] [facility] [id number] [place] [address]- 8396 Jul, [facility] [address] [facility] [id number] [place] [address]- 2620 Jun, [facility] [place] [facility] [address] [id number] [place] [address]- 0978 Jun, [facility] [place] [facility] [address] [id number] [place] [address]- 2358 Jun, [facility] [place] [facility] [address] [id number] [place] [address]- 2546 Jun, [facility] [place] [facility] [address] [id number] [place] [address]- 9216 Mar, [facility] [place] [facility] [address] [id number] [place] [address]- 9906 Mar, [facility] [place] [facility] [address] [id number] [place] [address]- 8950 Feb, [facility] [place] [facility] [address] [id number] [place] [address]- 7148 Feb, [facility] [place] [facility] [address] [id number] [place] [address]- 0206 December, [facility] [place] [facility] [address] [id number] [place] [address]- 3380 December, [facility] [place] [facility] [address] [id number] [place] [address]- 8006 Nov, [facility] [place] [facility] [address] [id number] [place] [address]- 2546 Oct, [facility] [place] [facility] [address] [id number] [place] [address]- 2546 Oct, [facility] [place] [facility] [address] [id number] [place] [address]- 6130 Jul, [facility] [place] [facility] [address] [id number] [place] [address]- 2546 Sep, [facility] [place] [facility] [address] [id number] [place] [address]- 2546 Jul, [facility] [place] [facility] [address] [id number] [place] [address]- 6340 15 Jan, 2010 [facility] [address] [facility] [id number] [place] [address]- 1836 Jun, [facility] [address], [place] [address]- 2546 Mar, [facility] [id number] [address]- 2546 Jan, [facility] [address], [place] [address]- 2546 December, [facility] [address] [id number], [place] [address] Oct, [facility] [address] [id number] [address] Sep, IMMUNIZATIONS No Known Immunizations SOCIAL HISTORY Never Assessed REASON FOR VISIT requesting return call PLAN OF CARE VITAL SIGNS MEDICATIONS Unknown [...] 12/2016 Hospitalization History surgeries Hospitalization History [facility] ED- Back/Left Side Pain 06/06/2017 Hospitalization History [facility] ED- Congested, cough and SOB 11/07/2017
--- OUTSIDE RECORDS SUMMARY | 2018-04-20 16:01 | XMS REPORT ---
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 Active 077029074 Problem Type 2 diabetes mellitus with diabetic neuropathy, unspecified E11.40 Active 16290148 Problem Diabetes type 2, controlled E11.9 Active 15993235 Problem Type 2 diabetes mellitus with hyperglycemia E11.65 Active 780608696 Problem Controlled type 2 diabetes mellitus without complication, without long -term current use of insulin E11.9 Active 744161908 Problem Chronic fatigue R53.82 Active 19474413 Problem Mood disorder F39 Active 62607701 Problem Slow transit constipation K59.01 Active 44437771 Problem Other chronic pain G89.29 Active 93060269 Problem Diabetic mononeuropathy associated with type 2 diabetes mellitus E11.41 Active 762295501 Problem Neuropathy G62.9 Active 198186566 ALLERGIES No Information ENCOUNTERS Encounter Location Date Diagnosis [place] [id number] [place] [address] 65407- 6170 Apr, [place] [address] [place] [id number] [place] [address] 48500- 7655 Mar, Type 2 diabetes mellitus with hyperglycemia E11.65 [facility] [id number] [place] [address] 31960- 8379 Feb, Seborrheic keratoses L82.1 and Type 2 diabetes mellitus with diabetic neuropathy, unspecified E11.40 [place] [address] [id number] [place] [address] 72203- 8784 Feb, Type 2 diabetes mellitus with diabetic neuropathy, unspecified E11.40 ; Renal insufficiency N28.9 and Chronic fatigue R53.82 [facility] [id number] [place] [address] 81215- 7387 Jan, Pneumonia of both lower lobes due to infectious organism J18.1 and Mood disorder F39 [facility] [id number] [place] [address] 82013- 9001 Jan, BMI 40.0-44.9, adult Z68.41 [facility] [id number] [place] [address] 99563- 5483 Jan, [facility] [address] 44763- 3302 Jan, [facility] [id number] [place] [address] 77915 -0798 Jan, Wheezes R06.2 ; Diabetes type 2, controlled E11.9 and Pneumonia of right lower lobe due to infectious organism J18.1 [facility] [id number] [place] [address] 12598- 0900 Jan, Renal insufficiency N28.9 [facility] [id number] [place] [address] 34193- 5751 Jan, Seborrheic keratoses L82.1 [facility] [id number] [place] [address] 55499- 9561 Jan, [facility] [id number] [place] [address] 18070- 1474 Jan, [facility] [id number] [place] [address] 60745- 1072 Jan, Renal insufficiency N28.9 [facility] [id number] [place] [address] 59605- 5507 Jan, [facility] [id number] [place] [address] 45275- 1871 Jan, Diabetes type 2, controlled E11.9 ; Mood disorder F39 and BMI 40.0-44.9, adult Z68.41 [facility] [id number] [place] [address] 69485- 1330 Jan, BMI 40.0-44.9, adult Z68.41 [facility] [id number] [place] [address]- 6638 December, [facility] [id number] [place] [address] 79525- 4658 December, [facility] [id number] [place] [address] 48965- 8974 December, Seborrheic keratoses L82.1 [facility] [id number] [place] [address], [place] [address]- 8733 December, Seborrheic keratoses L82.1 [facility] [id number] [place] [address] 96400- 2321 December, [facility] [id number] [address]- 2838 December, [facility] [id number] [place] [address] 06734- 8795 December, BMI 40.0-44.9, adult Z68.41 [facility] [address] [address]- 6632 December, [facility] [id number] [address]- 8885 December, [facility] [address] [address]- 9944 Nov, [facility] [id number] [address]- 5295 Nov, [facility] [address] [address]- 4113 Nov, Seborrheic keratoses L82.1 [place] [id number] [place] [address] 54125- 7966 Nov, Renal insufficiency N28.9 [place] [address] 63221- 4855 Nov, [place] [address] 44646- 6872 Nov, [place] [address] 89000- 6625 Nov, [place] [address] 81972- 7370 Nov, Type 2 diabetes mellitus with diabetic neuropathy, unspecified E11.40 ; Other chronic pain G89.29 ; Bronchitis J40 ; Renal cyst N28.1 ; Pain of left foot M79.672 and Pain in right foot M79.671 [place] [address] 89355- 0480 Oct, Type 2 diabetes mellitus without complications E11.9 [place] [address] 34246- 0926 Oct, SOB (shortness of breath) R06.02 [place] [address] [id number] [place] [address] 63273- 1146 Oct, SOB (shortness of breath) R06.02 [place] [address] 04423- 4386 Sep, Type 2 diabetes mellitus without complications E11.9 [place] [address] 16954- 0334 Sep, Left flank pain R10.9 [place] [address] 45724- 8118 Sep, BMI 40.0-44.9, adult Z68.41 ; Left flank pain R10.9 and Seborrheic keratoses L82.1 [place] [address] [address]- 9827 Aug, Type 2 diabetes mellitus without complications E11.9 [facility] [address] [address]- 6984 Jul, Type 2 diabetes mellitus without complications E11.9 and Abdominal pain, left lower quadrant R10.32 [facility] [address] [id number] [address] Jun, [facility] [address] [address]- 1665 Jun, Type 2 diabetes mellitus without complications E11.9 [facility] [address] [address]- 9964 Jun, Controlled type 2 diabetes mellitus without complication, without long-term current use of insulin E11.9 and Seborrheic keratoses L82.1 [facility] [address] [address] May, Acute back pain M54.9 [facility] [address] [place] [address] 28700- 8833 13 May, 2017 Type 2 diabetes mellitus without complications E11.9 [facility] [address] [address]- 7383 28 Apr, 2017 Diabetes type 2, controlled E11.9 ; Lumbago with sciatica, left side M54.42 and Diabetic mononeuropathy associated with type 2 diabetes mellitus E11.41 [facility] [address] [address]- 1007 Apr, Type 2 diabetes mellitus without complications E11.9 [facility] [address] [address]- 9572 05 Apr, 2017 [facility] [address] [address]- 6844 Mar, Type 2 diabetes mellitus without complications E11.9 [facility] [id number] [place] [address] 05754- 4522 Feb, Controlled type 2 diabetes mellitus without complication, without long-term current use of insulin E11.9 ; Neuropathy G62.9 and Onychomycosis B35.1 [place] [id number] [place] [address] 85077- 3106 15 Jan, 2017 Type 2 diabetes mellitus with diabetic neuropathy, unspecified E11.40 [place] [id number] [place] [address] 59148- 1928 Jan, Type 2 diabetes mellitus with diabetic neuropathy, unspecified E11.40 [place] [id number] [place] [address] 97016- 1511 December, Type 2 diabetes mellitus without complications E11.9 [place] [address] [id number] [place] [address] 49687- 8306 December, Slow transit constipation K59.01 and Pain in right hip M25.551 [place] [address] [id number] [place] [address] 41613- 3969 Nov, Type 2 diabetes mellitus without complications E11.9 [place] [id number] [place] [address] 17699- 7636 Oct, Lumbago with sciatica, left side M54.42 and Other chronic pain G89.29 [place] [id number] [place] [address] 00584- 0093 Sep, Diabetes mellitus E11.9 ; Lumbago with sciatica, left side M54.42 and Type 2 diabetes mellitus without complications E11.9 [place] [id number] [place] [address] 89606- 7829 Aug, Type 2 diabetes mellitus without complications E11.9 and skilled nursing 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 [facility] [address] [place] [address] [id number] Aug, Dental examination Z01.20 [facility] [id number] [place] [address] [id number] Aug, Dental examination Z01.20 [facility] [address] [place] [address] 08058 -4108 Aug, Dental abscess K04.7 [facility] [address] [place] [address] 47444- 0795 Jul, Type 2 diabetes mellitus with hyperglycemia E11.65 and skilled nursing 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 [place] [id number] [place] [address] 17945- 7908 Jul, [place] [id number] [place] [address] 66015- 0927 Jul, Type 2 diabetes mellitus with diabetic neuropathy, unspecified E11.40 [place] [id number] [place] [address] 19759- 6397 Jun, Type 2 diabetes mellitus with diabetic neuropathy, unspecified E11.40 and Lumbago with sciatica, left side M54.42 [place] [address] [place] [address] 19310- 1507 May, Controlled type 2 diabetes mellitus without complication, without long-term current use of insulin E11.9 [place] [id number] [place] [address] 01868- 9867 08 Apr, 2016 Controlled type 2 diabetes mellitus without complication, without long-term current use of insulin E11.9 and Lumbar neuritis M54.16 [place] [id number] [place] [address] 90639- 5467 Mar, [place] [id number] [place] [address] 55866- 0427 Mar, Other chronic pain G89.29 ; Pain in left knee M25.562 ; Sciatica, left side M54.32 ; Pain in left hip M25.552 ; Type 2 diabetes mellitus with hyperglycemia E11.65 ; skilled nursing 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 and Mood disorder F39 [place] [address] [id number] [place] [address] 65682- 6078 December, Diabetes type 2, controlled E11.9 [place] [id number] [place] [address] 20023- 9445 December, Diabetes type 2, controlled E11.9 [facility] [id number] [place] [address] 13760- 8376 Oct, Shoulder pain, right M25.511 and Knee pain, right M25.561 [place] [id number] [place] [address] 65699- 0860 Oct, Knee pain, left M25.562 [place] [id number] [place] [address] 69916- 2520 Sep, Diabetes mellitus E11.9 and Knee pain M25.569 [place] [id number] [place] [address] 42628- 0652 Sep, [place] [id number] [place] [address] 87981- 1346 Jun, Type 2 diabetes mellitus with diabetic neuropathy, unspecified E11.40 and Type 2 diabetes mellitus with hyperglycemia E11.65 [place] [id number] [place] [address] 17254- 3523 May, Diabetes mellitus E11.9 [place] [id number] [place] [address] 39407- 3119 May, Diabetes mellitus E11.9 and Lumbago with sciatica, left side M54.42 [place] [id number] [place] [address] 55036- 0980 Jan, Osteoarthritis of knees, bilateral 715.96 [place] [id number] [place] [address] 72823- 1077 December, [place] [id number] [place] [address] 06328- 3342 December, Knee pain, bilateral 719.46 [place] [id number] [place] [address] 40576- 3731 29 Nov, 2014 Knee pain, bilateral 719.46 [facility] [address] [id number] [place] [address]- 9104 14 Nov, 2014 [facility] [address] [id number] [place] [address]- 6455 13 Nov, 2014 [facility] [address] [id number] [place] [address]- 4069 Oct, [facility] [address] [id number] [place] [address]- 6732 Oct, [facility] [address] [id number] [place] [address], [place]- 7217 Aug, [facility] [address] [facility] [id number] [place] [address]- 9464 Aug, [facility] [address] [place] [address]- 6150 17 Jul, 2014 [facility] [address] [id number] [place] [address]- 4490 17 Jul, 2014 [facility] [address] [place] [address]- 4455 Jun, [facility] [id number] [place] [address]- 2704 17 Jun, 2014 [facility] [address] [id number] [place] [address]- 6388 15 May, 2014 [facility] [address] [id number] [place] [address]- 5618 15 May, 2014 [facility] [address] [facility] [id number] [place]- 3506 15 Apr, 2014 [facility] [place] [facility] [address] [facility] [id number] [place] [address]- 3087 15 Apr, 2014 [facility] [address] [facility] [id number] [place] 6073 Apr, [facility] [place] [facility] [address] [id number] [place] [address]- 7538 Apr, [facility] [place] [facility] [address] [id number] [place] [address]- 9033 Feb, [facility] [place] [facility] [address] [id number] [place] [address]- 4908 Feb, [facility] [place] [facility] [address] [id number] [place] [address]- 9137 December, [facility] [place] [facility] [address] [id number] [place] 7004 December, [facility] [place] [facility] [address] [id number] [place] [address]- 7229 December, [facility] [place] [facility] [address] [id number] [place] [address]- 7176 December, [facility] [place] [facility] [address] [id number] [place] [address]- 5292 Nov, [facility] [place] [facility] [address] [id number] [place] [address]- 2542 Nov, [facility] [place] [facility] [address] [id number] [place] [address]- 1630 Oct, [facility] [place] [facility] [address] [id number] [place] [address]- 1239 Oct, [facility] [place] [facility] [address] [id number] [place] [address]- 7493 Aug, [facility] [place] [facility] [address] [id number] [place] [address]- 7809 Aug, [facility] [place] [facility] [address] [id number] [place] [address]- 6746 Jul, [facility] [place] [facility] [address] [id number] [place] [address]- 6345 Jul, [facility] [place] [facility] [address] [id number] [address]- 2586 04 May, 2013 [facility] [address] [id number] [place] [address]- 6886 Jan, [facility] [address] [facility] [id number] [place] [address]- 6116 Jan, [facility] [address] [facility] [id number] [place] [address]- 2886 December, [facility] [address] [id number] [place] [address]- 3302 Nov, [facility] [address] [facility] [id number] [place] [address]- 9209 25 Oct, 2012 [facility] [address] [facility] [id number] [place] [address] 2546 19 Oct, 2012 [facility] [address] [place] [address]- 5104 14 Oct, 2012 [facility] [address] [facility] [id number] [place] [address]- 3203 Oct, [facility] [id number] [place] [address]- 7597 07 Oct, 2012 [facility] [id number] [place] [address]- 2682 07 Oct, 2012 [facility] [address] [facility] [id number] [place] [address]- 7646 07 Sep, 2012 [facility] [address] [facility] [id number] [place] [address]- 3803 18 Jul, 2012 [facility] [address] [id number] [place] [address]- 4506 Jul, [facility] [address] [facility] [id number] [place] [address]- 4126 Jul, [facility] [address] [facility] [id number] [place] [address]- 8472 Jun, [facility] [place] [facility] [address] [id number] [place] [address]- 7295 Jun, [facility] [place] [facility] [address] [id number] [place] [address]- 3255 Jun, [facility] [place] [facility] [address] [id number] [place] [address]- 2546 Jun, [facility] [place] [facility] [address] [id number] [place] [address]- 3676 Mar, [facility] [place] [facility] [address] [id number] [place] [address]- 1482 Mar, [facility] [place] [facility] [address] [id number] [place] [address]- 7677 Feb, [facility] [place] [facility] [address] [id number] [place] [address]- 9154 Feb, [facility] [place] [facility] [address] [id number] [place] [address]- 1276 December, [facility] [place] [facility] [address] [id number] [place] [address]- 2907 December, [facility] [place] [facility] [address] [id number] [place] [address]- 8824 Nov, [facility] [place] [facility] [address] [id number] [place] [address]- 2546 Oct, [facility] [place] [facility] [address] [id number] [place] [address]- 2546 Oct, [facility] [place] [facility] [address] [id number] [place] [address]- 6183 Jul, [facility] [place] [facility] [address] [id number] [place] [address]- 2546 Sep, [facility] [place] [facility] [address] [id number] [place] [address]- 2546 Jul, [facility] [place] [facility] [address] [id number] [place] [address]- 8989 15 Jan, 2010 [facility] [address] [facility] [id number] [place] [address]- 3006 Jun, [facility] [id number] [address]- 2546 Mar, [facility] [id number] [address]- 2546 Jan, [facility] [id number] [address]- 2546 December, [facility] [id number] [address]- 2656 Oct, [facility] [id number] [address] Sep, IMMUNIZATIONS No Known Immunizations SOCIAL HISTORY Never Assessed REASON FOR VISIT hypertension PLAN OF CARE VITAL SIGNS MEDICATIONS Medication Instructions Dosage Frequency Start Date End Date Duration Status Metoprolol Tartrate 50 mg Orally Twice a day 1 tablet with food 12h December 30 day(s) Active RESULTS No Results PROCEDURES [...] rods 12/2016 Hospitalization History surgeries Hospitalization History [facility], [place], operated by [facility]- Back/Left Side Pain 06/06/2017 Hospitalization History [facility], [place], [place] by [facility]- Congested, cough and SOB 11/07/2017
--- OUTSIDE RECORDS SUMMARY | 2018-04-20 16:02 | XMS REPORT ---
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 Active 590894724 Problem Type 2 diabetes mellitus with diabetic neuropathy, unspecified E11.40 Active 04814260 Problem Diabetes type 2, controlled E11.9 Active 36749279 Problem Type 2 diabetes mellitus with hyperglycemia E11.65 Active 139955186 Problem Controlled type 2 diabetes mellitus without complication, without long -term current use of insulin E11.9 Active 077356048 Problem Chronic fatigue R53.82 Active 38089959 Problem Mood disorder F39 Active 62115796 Problem Slow transit constipation K59.01 Active 89394499 Problem Other chronic pain G89.29 Active 09352418 Problem Diabetic mononeuropathy associated with type 2 diabetes mellitus E11.41 Active 871605947 Problem Neuropathy G62.9 Active 805453719 ALLERGIES No Information ENCOUNTERS Encounter Location Date Diagnosis [place] [id number], [place] [address] Mar, [place] [id number], [place] [address] Feb, Seborrheic keratoses L82.1 and Type 2 diabetes mellitus with diabetic neuropathy, unspecified E11.40 [place] [id number] [place] [address] 54990- 6301 Feb, Type 2 diabetes mellitus with diabetic neuropathy, unspecified E11.40 ; Renal insufficiency N28.9 and Chronic fatigue R53.82 [place] [id number], [place] [address] 28 Jan, 2018 Pneumonia of both lower lobes due to infectious organism J18.1 and Mood disorder F39 [facility] [id number] [place] [address] 80753- 8255 Jan, BMI 40.0-44.9, adult Z68.41 [place] [id number] [place] [address] 77084- 3108 Jan, [facility] [id number] [place] [address] 82192- 0560 Jan, [facility] [id number] [place] [address] 99747 -0620 Jan, Wheezes R06.2 ; Diabetes type 2, controlled E11.9 and Pneumonia of right lower lobe due to infectious organism J18.1 [place] [id number] [place] [address] 55583- 8706 Jan, Renal insufficiency N28.9 [facility] [id number] [place] [address] 30025- 7229 Jan, Seborrheic keratoses L82.1 [facility] [id number] [place] [address] 36739- 5678 Jan, [facility] [id number] [place] [address] 01448- 5922 Jan, [facility] [id number] [place] [address] 65295- 8761 08 Jan, 2018 Renal insufficiency N28.9 [facility] [id number] [place] [address] 16611- 6550 07 Jan, 2018 [place] [id number] [place] [address] 75273- 6395 04 Jan, 2018 Diabetes type 2, controlled E11.9 ; Mood disorder F39 and BMI 40.0-44.9, adult Z68.41 [facility] [id number], [place] [address] 5528 Jan, BMI 40.0-44.9, adult Z68.41 [facility] [id number] [place] [address] 9853 December, [facility] [address], [place] [address]- 9166 December, [facility] [id number] [place] [address] 03648- 2035 December, Seborrheic keratoses L82.1 [facility] [address] [place] [address]- 0126 December, Seborrheic keratoses L82.1 [facility] [id number] [place] [address]- 3906 December, [facility] [id number] [place] [address] 72295- 9604 December, [facility] [address], [place] [address]- 8326 December, BMI 40.0-44.9, adult Z68.41 [facility] [address], [place] [address]- 1184 December, [facility] [address], [place] [address]- 6085 December, [facility] [address], [place] [address]- 3483 Nov, [facility] [address], [place] [address]- 8830 Nov, [facility] [address], [place] [address]- 6474 Nov, Seborrheic keratoses L82.1 [facility] [address], [place] [address]- 7737 Nov, Renal insufficiency N28.9 [place] [id number] [place] [address] 51349- 2401 11 Nov, 2017 [place] [id number] [place] [address] 89435- 3248 Nov, [place] [id number] [place] [address] 84297- 8132 Nov, [place] [address] 99058- 7208 Nov, Type 2 diabetes mellitus with diabetic neuropathy, unspecified E11.40 ; Other chronic pain G89.29 ; Bronchitis J40 ; Renal cyst N28.1 ; Pain of left foot M79.672 and Pain in right foot M79.671 [place] [id number] [place] [address] 70329- 3354 Oct, Type 2 diabetes mellitus without complications E11.9 [place] [id number] [place] [address] 49334- 2640 Oct, SOB (shortness of breath) R06.02 [place] [id number] [place] [address] 70613- 8028 Oct, SOB (shortness of breath) R06.02 [place] [id number] [place] [address] 47308- 4492 Sep, Type 2 diabetes mellitus without complications E11.9 [place] [id number] [place] [address] 80667- 1478 Sep, Left flank pain R10.9 [place] [id number] [place] [address] 89932- 8604 Sep, BMI 40.0-44.9, adult Z68.41 ; Left flank pain R10.9 and Seborrheic keratoses L82.1 [place] [id number] [place] [address] 22520- 3451 Aug, Type 2 diabetes mellitus without complications E11.9 [place] [address], [place] [address]- 8919 Jul, Type 2 diabetes mellitus without complications E11.9 and Abdominal pain, left lower quadrant R10.32 [facility] [address] [id number] [address] Jun, [facility] [address], [place] [address]- 1470 Jun, Type 2 diabetes mellitus without complications E11.9 [facility] [address], [place] [address]- 3757 Jun, Controlled type 2 diabetes mellitus without complication, without long-term current use of insulin E11.9 and Seborrheic keratoses L82.1 [facility] [address], [place] [address] May, Acute back pain M54.9 [facility] [address] [place] [address] 80094- 2371 May, Type 2 diabetes mellitus without complications E11.9 [facility] [address] [place] [address] 28850- 5762 28 Apr, 2017 Diabetes type 2, controlled E11.9 ; Lumbago with sciatica, left side M54.42 and Diabetic mononeuropathy associated with type 2 diabetes mellitus E11.41 [facility] [address], [place] [address]- 8014 Apr, Type 2 diabetes mellitus without complications E11.9 [facility] [address], [place] [address]- 2360 Apr, [facility] [id number] [place] [address] 96701- 9527 Mar, Type 2 diabetes mellitus without complications E11.9 [facility] [address], [place] [address]- 3229 Feb, Controlled type 2 diabetes mellitus without complication, without long-term current use of insulin E11.9 ; Neuropathy G62.9 and Onychomycosis B35.1 [place] [id number] [place] [address] 72282- 4424 Jan, Type 2 diabetes mellitus with diabetic neuropathy, unspecified E11.40 [place] [id number] [place] [address] 46285- 3038 Jan, Type 2 diabetes mellitus with diabetic neuropathy, unspecified E11.40 [place] [id number] [place] [address] 84746- 6242 December, Type 2 diabetes mellitus without complications E11.9 [place] [id number] [place] [address] 34853- 0654 December, Slow transit constipation K59.01 and Pain in right hip M25.551 [place] [id number] [place] [address] 45267- 4129 Nov, Type 2 diabetes mellitus without complications E11.9 [place] [id number] [place] [address] 05406- 0261 Oct, Lumbago with sciatica, left side M54.42 and Other chronic pain G89.29 [place] [id number] [place] [address] 47555- 1407 Sep, Diabetes mellitus E11.9 ; Lumbago with sciatica, left side M54.42 and Type 2 diabetes mellitus without complications E11.9 [place] [address] [place] [address] 59294- 0832 Aug, Type 2 diabetes mellitus without complications E11.9 and 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 [facility] [id number] [place] [address] [id number] Aug, Dental examination Z01.20 [facility] [id number] [place] [address] [id number] Aug, Dental examination Z01.20 [facility] [id number] [place] [address] 59125 -6678 Aug, Dental abscess K04.7 [place] [id number] [place] [address] 93513- 8355 Jul, Type 2 diabetes mellitus with hyperglycemia E11.65 and [facility] 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 [place] [id number] [place] [address] 98008- 4293 Jul, [place] [address] 70771- 7858 Jul, Type 2 diabetes mellitus with diabetic neuropathy, unspecified E11.40 [place] [id number] [place] [address] 31085- 4279 Jun, Type 2 diabetes mellitus with diabetic neuropathy, unspecified E11.40 and Lumbago with sciatica, left side M54.42 [place] [id number] [place] [address] 17634- 7738 May, Controlled type 2 diabetes mellitus without complication, without long-term current use of insulin E11.9 [place] [id number] [place] [address] 93721- 2086 Apr, Controlled type 2 diabetes mellitus without complication, without long-term current use of insulin E11.9 and Lumbar neuritis M54.16 [place] [id number] [place] [address] 32989- 4224 Mar, [place] [id number] [place] [address] 19684- 0333 Mar, Other chronic pain G89.29 ; Pain in left knee M25.562 ; Sciatica, left side M54.32 ; Pain in left hip M25.552 ; Type 2 diabetes mellitus with hyperglycemia E11.65 ; 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 and Mood disorder F39 [place] [id number] [place] [address] 12934- 1676 December, Diabetes type 2, controlled E11.9 [place] [id number] [place] [address] 71724- 9422 December, Diabetes type 2, controlled E11.9 [place] [id number] [place] [address] 98958- 6116 Oct, Shoulder pain, right M25.511 and Knee pain, right M25.561 [place] [id number] [place] [address] 85230- 0415 Oct, Knee pain, left M25.562 [place] [id number] [place] [address] 58333- 2191 Sep, Diabetes mellitus E11.9 and Knee pain M25.569 [place] [id number] [place] [address] 91419- 7173 Sep, [place] [id number] [place] [address] 78774- 4816 Jun, Type 2 diabetes mellitus with diabetic neuropathy, unspecified E11.40 and Type 2 diabetes mellitus with hyperglycemia E11.65 [place] [id number] [place] [address] 35911- 6711 May, Diabetes mellitus E11.9 [place] [id number] [place] [address] 77217- 4434 May, Diabetes mellitus E11.9 and Lumbago with sciatica, left side M54.42 [place] [id number] [place] [address] 85646- 7028 Jan, Osteoarthritis of knees, bilateral 715.96 [place] [id number] [place] [address] 04083- 1253 December, [place] [id number] [place] [address] 84204- 2222 December, Knee pain, bilateral 719.46 [place] [id number] [place] [address] 71450- 9348 Nov, Knee pain, bilateral 719.46 [place] [id number] [place] [address] 84386- 7201 14 Nov, 2014 [facility] [place] [facility] [address] [id number] [place] [address]- 5097 13 Nov, 2014 [facility] [place] [facility] [address] [id number] [place] [address]- 1367 13 Oct, 2014 [facility] [place] [facility] [address] [id number] [place] [address]- 4164 Oct, [facility] [place] [facility] [address] [id number] [place] [address]- 9836 Aug, [facility] [place] [facility] [address] [id number] [place] [address]- 4169 Aug, [facility] [place] [facility] [address] [id number] [place] [address]- 6116 17 Jul, 2014 [facility] [place] [facility] [address] [facility] [id number] [place] [address]- 3984 17 Jul, 2014 [facility] [place] [facility] [address] [id number] [place] [address]- 8412 17 Jun, 2014 [facility] [place] [facility] [address] [facility] [id number] [place] [address]- 6999 17 Jun, 2014 [facility] [place] [facility] [address] [facility] [id number] [place] [address]- 7588 15 May, 2014 [facility] [place] [facility] [address] [id number], [place] [address]- 8004 15 May, 2014 [facility] [place] [facility] [address] [id number], [place] [address]- 2381 15 Apr, 2014 [facility] [place] [facility] [address] [id number] [place] [address]- 9873 15 Apr, 2014 [facility] [place] [facility] [address] [facility] [id number] [place] [address]- 4848 08 Apr, 2014 [facility] [place] [facility] [address] [facility] [id number] [place] [address]- 6376 08 Apr, 2014 [facility] [place] [facility] [address] [id number] [place] [address]- 7616 Feb, [facility] [place] [facility] [address] [id number] [place] [address]- 3560 Feb, [facility] [place] [facility] [address] [id number] [place] [address]- 2586 December, [facility] [place] [facility] [address] [id number] [place] [address]- 5205 December, [facility] [place] [facility] [address] [id number] [place] [address]- 0775 December, [facility] [place] [facility] [address] [id number] [place] [address]- 5483 December, [facility] [place] [facility] [address] [id number] [place] [address]- 0957 Nov, [facility] [place] [facility] [address] [id number] [place] [address]- 7461 Nov, [facility] [place] [facility] [address] [id number] [place] [address]- 2813 Oct, [facility] [place] [facility] [address] [id number] [place] [address]- 4464 Oct, [facility] [place] [facility] [address] [id number] [place] 6449 Aug, [facility] [place] [facility] [address] [id number] [place] [address]- 2961 Aug, [facility] [place] [facility] [address] [id number] [place] [address]- 8500 Jul, [facility] [place] [facility] [address] [id number] [place] [address]- 5366 Jul, [facility] [place] [facility] [address] [id number] [place] [address]- 2546 May, [facility] [place] [facility] [address] [id number] [place] [address]- 4530 Jan, [facility] [place] [facility] [address] [id number] [place] [address]- 0318 10 Jan, 2013 [facility] [place] [facility] [address] [id number] [place] [address]- 9794 December, [facility] [place] [facility] [address] [id number] [place] [address]- 7136 Nov, [facility] [place] [facility] [address] [id number] [place] [address]- 2101 25 Oct, 2012 [facility] [place] [facility] [address] [id number] [place] [address]- 3538 19 Oct, 2012 [facility] [place] [facility] [address] [id number] [place] [address]- 1379 14 Oct, 2012 [facility] [place] [facility] [address] [id number] [place] [address]- 2280 Oct, [facility] [place] [facility] [address] [id number] [place] [address]- 2545 07 Oct, 2012 [facility] [place] [facility] [address] [id number] [place] [address]- 2460 07 Oct, 2012 [facility] [place] [facility] [address] [facility] [id number] [place] [address]- 2573 07 Sep, 2012 [facility] [place] [facility] [address] [id number] [place] [address]- 1491 Jul, [facility] [place] [facility] [address] [id number] [place] [address]- 8350 Jul, [facility] [place] [facility] [address] [id number] [place] [address]- 9478 Jul, [facility] [place] [facility] [address] [id number] [place] [address]- 7623 Jun, [facility] [place] [facility] [address] [id number] [place] [address]- 4523 Jun, [facility] [place] [facility] [address] [id number] [place] [address]- 0332 Jun, [facility] [address] [id number] [place] [address]- 8290 Jun, [facility] [place] [facility] [address] [id number] [place] [address]- 0236 Mar, [facility] [place] [facility] [address] [id number] [place] [address]- 5526 Mar, [facility] [place] [facility] [address] [id number] [place] [address]- 1764 Feb, [facility] [place] [facility] [address] [id number] [place] [address]- 3870 Feb, [facility] [place] [facility] [address] [id number] [place] [address]- 5796 December, [facility] [address] [id number] [place] [address]- 5926 December, [facility] [place] [facility] [address] [id number] [place] [address]- 0815 Nov, [facility] [place] [facility] [address] [id number] [place] [address]- 2166 Oct, [facility] [place] [facility] [address] [id number] [place] [address]- 3679 Oct, [facility] [place] [facility] [address] [id number] [place] [address]- 2084 Jul, [facility] [place] [facility] [address] [id number] [place] [address]- 2546 Sep, [facility] [place] [facility] [address] [id number] [place] [address]- 9341 Jul, [facility] [place] [facility] [address] [id number] [place] [address]- 2546 Jan, [facility] [place] [facility] [address] [id number] [place] [address]- 8903 Jun, [facility] [address] [facility] [id number], [place] [address]- 8696 Mar, [facility] [id number], [place] [address] 2546 Jan, [facility] [address] [facility] [id number], [place] [address] 2546 December, [facility] [id number], [place] [address] 2546 Oct, [facility] [address] [facility] [id number], [place] [address]- 6386 Sep, IMMUNIZATIONS No Known Immunizations SOCIAL HISTORY Never Assessed REASON FOR VISIT BP Reduction Challenge BP F/U PLAN OF CARE VITAL SIGNS Height 67 in 2017-12-01 Blood pressure systolic 142 mmHg 2017-12-01 Blood pressure diastolic 88 mmHg 2017-12-01 MEDICATIONS Unknown Medications RESULTS No Results PROCEDURES [...]
--- OUTSIDE RECORDS SUMMARY | 2018-04-20 16:02 | XMS REPORT ---
Author Author NISHI PALENCIA Organization [facility] Address [address] [place] [address] Care Team Providers Care Dry Heat Room Attendant Name Role Phone SLIMENISHI Unavailable PROBLEMS Type Condition ICD9-CM Code VIQ06-PL Code Onset Dates Condition Status SNOMED Code Problem Lumbago with sciatica, left side M54.42 Active 437338328 Problem Type 2 diabetes mellitus without complications E11.9 Active 759128886 Problem marketing strategy lead 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 Active 475463760 Problem Type 2 diabetes mellitus with diabetic neuropathy, unspecified E11.40 Active 25395386 Problem Diabetes type 2, controlled E11.9 Active 40221456 Problem Type 2 diabetes mellitus with hyperglycemia E11.65 Active 209049475 Problem Controlled type 2 diabetes mellitus without complication, without long -term current use of insulin E11.9 Active 659105171 Problem Chronic fatigue R53.82 Active 48714023 Problem Mood disorder F39 Active 42667303 Problem Slow transit constipation K59.01 Active 90357053 Problem Other chronic pain G89.29 Active 38187102 Problem Diabetic mononeuropathy associated with type 2 diabetes mellitus E11.41 Active 644104198 Problem Neuropathy G62.9 Active 117710712 ALLERGIES No Known Allergies ENCOUNTERS Encounter Location Date Diagnosis [place] [id number] [place] [address] 02073- 8329 Mar, [place] [id number] [place] [address] 30258- 1274 Feb, Seborrheic keratoses L82.1 and Type 2 diabetes mellitus with diabetic neuropathy, unspecified E11.40 [place] [id number] [place] [address] 05178- 9433 Feb, Type 2 diabetes mellitus with diabetic neuropathy, unspecified E11.40 ; Renal insufficiency N28.9 and Chronic fatigue R53.82 [place] [address] [address] 28 Jan, 2018 Pneumonia of both lower lobes due to infectious organism J18.1 and Mood disorder F39 [facility] [id number] [place] [address] 83469- 0934 Jan, BMI 40.0-44.9, adult Z68.41 [facility] [id number] [place] [address] 35763- 8590 Jan, [facility] [id number] [place] [address] 87471- 1054 Jan, [facility] [id number] [place] [address] 17069 -5233 Jan, Wheezes R06.2 ; Diabetes type 2, controlled E11.9 and Pneumonia of right lower lobe due to infectious organism J18.1 [place] [id number] [place] [address] 44966- 0365 Jan, Renal insufficiency N28.9 [facility] [id number] [place] [address] 62578- 6749 Jan, Seborrheic keratoses L82.1 [facility] [id number] [place] [address] 21244- 6518 Jan, [facility] [address] [address] 8495 Jan, [facility] [id number] [place] [address] 62166- 3231 08 Jan, 2018 Renal insufficiency N28.9 [facility] [address] [place] [address] 23505- 8194 07 Jan, 2018 [facility] [id number] [place] [address] 24353- 3928 04 Jan, 2018 Diabetes type 2, controlled E11.9 ; Mood disorder F39 and BMI 40.0-44.9, adult Z68.41 [facility] [id number] [address] 8208 Jan, BMI 40.0-44.9, adult Z68.41 [facility] [address] [place] [address] 5651 December, [facility] [address] [address]- 3716 December, [facility] [id number] [place] [address] 63807- 7561 December, Seborrheic keratoses L82.1 [facility] [address] [place] [address]- 0696 December, Seborrheic keratoses L82.1 [facility] [address] [place] [address]- 4974 December, [facility] [id number] [address]- 3438 December, [facility] [address] [address]- 9954 December, BMI 40.0-44.9, adult Z68.41 [facility] [address] [address]- 6600 December, [facility] [address] [address]- 6039 December, [facility] [address] [address]- 9944 Nov, [facility] [address] [address]- 6555 Nov, [facility] [address] [address]- 9567 Nov, Seborrheic keratoses L82.1 [facility] [address] [address]- 6013 Nov, Renal insufficiency N28.9 [place] [id number] [place] [address] 15446- 7739 Nov, [place] [address] 19490- 4028 Nov, [place] [id number] [place] [address] 68528- 6574 Nov, [place] [address] 88352- 0033 Nov, Type 2 diabetes mellitus with diabetic neuropathy, unspecified E11.40 ; Other chronic pain G89.29 ; Bronchitis J40 ; Renal cyst N28.1 ; Pain of left foot M79.672 and Pain in right foot M79.671 [place] [id number] [place] [address] 13319- 3050 Oct, Type 2 diabetes mellitus without complications E11.9 [place] [address] 90179- 9684 Oct, SOB (shortness of breath) R06.02 [place] [id number] [place] [address] 87538- 8414 Oct, SOB (shortness of breath) R06.02 [place] [id number] [place] [address] 70167- 1342 Sep, Type 2 diabetes mellitus without complications E11.9 [place] [id number] [place] [address] 32914- 1104 Sep, Left flank pain R10.9 [place] [id number] [place] [address] 41721- 5655 Sep, BMI 40.0-44.9, adult Z68.41 ; Left flank pain R10.9 and Seborrheic keratoses L82.1 [place] [id number] [place] [address] 36020- 7310 Aug, Type 2 diabetes mellitus without complications E11.9 [place] [id number] [address]- 7166 Jul, Type 2 diabetes mellitus without complications E11.9 and Abdominal pain, left lower quadrant R10.32 [facility] [address] [id number] [address] Jun, [facility] [address] [address]- 8200 Jun, Type 2 diabetes mellitus without complications E11.9 [facility] [address] [address]- 8758 Jun, Controlled type 2 diabetes mellitus without complication, without long-term current use of insulin E11.9 and Seborrheic keratoses L82.1 [facility] [address] [address] May, Acute back pain M54.9 [facility] [address] [place] [address] 27947- 1256 May, Type 2 diabetes mellitus without complications E11.9 [facility] [address] [address]- 1707 28 Apr, 2017 Diabetes type 2, controlled E11.9 ; Lumbago with sciatica, left side M54.42 and Diabetic mononeuropathy associated with type 2 diabetes mellitus E11.41 [facility] [address] [address]- 2470 Apr, Type 2 diabetes mellitus without complications E11.9 [facility] [address] [address]- 3180 05 Apr, 2017 [facility] [id number] [place] [address] 74109- 1464 Mar, Type 2 diabetes mellitus without complications E11.9 [facility] [address] [address]- 1188 Feb, Controlled type 2 diabetes mellitus without complication, without long-term current use of insulin E11.9 ; Neuropathy G62.9 and Onychomycosis B35.1 [place] [address] [place] [address] 71469- 2907 Jan, Type 2 diabetes mellitus with diabetic neuropathy, unspecified E11.40 [place] [id number] [place] [address] 26190- 1446 Jan, Type 2 diabetes mellitus with diabetic neuropathy, unspecified E11.40 [place] [id number] [place] [address] 48546- 6224 December, Type 2 diabetes mellitus without complications E11.9 [place] [id number] [place] [address] 25451- 0196 December, Slow transit constipation K59.01 and Pain in right hip M25.551 [place] [id number] [place] [address] 34879- 2309 Nov, Type 2 diabetes mellitus without complications E11.9 [place] [id number] [place] [address] 65066- 4108 Oct, Lumbago with sciatica, left side M54.42 and Other chronic pain G89.29 [place] [id number] [place] [address] 44758- 5970 Sep, Diabetes mellitus E11.9 ; Lumbago with sciatica, left side M54.42 and Type 2 diabetes mellitus without complications E11.9 [place] [address] [place] [address] 05181- 8325 Aug, Type 2 diabetes mellitus without complications E11.9 and marketing strategy lead 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 [facility] [id number] [place] [address] [id number] Aug, Dental examination Z01.20 [facility] [id number] [place] [address] [id number] Aug, Dental examination Z01.20 [facility] [id number] [place] [address] 04117 -7838 Aug, Dental abscess K04.7 [place] [id number] [place] [address] 15713- 8444 Jul, Type 2 diabetes mellitus with hyperglycemia E11.65 and assisted 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 [place] [id number] [place] [address] 69076- 9160 Jul, [place] [address] 61203- 3004 Jul, Type 2 diabetes mellitus with diabetic neuropathy, unspecified E11.40 [place] [id number] [place] [address] 16372- 0962 Jun, Type 2 diabetes mellitus with diabetic neuropathy, unspecified E11.40 and Lumbago with sciatica, left side M54.42 [place] [id number] [place] [address] 43602- 2669 May, Controlled type 2 diabetes mellitus without complication, without long-term current use of insulin E11.9 [place] [id number] [place] [address] 04932- 2926 Apr, Controlled type 2 diabetes mellitus without complication, without long-term current use of insulin E11.9 and Lumbar neuritis M54.16 [place] [id number] [place] [address] 84659- 6232 Mar, [place] [id number] [place] [address] 01585- 5597 Mar, Other chronic pain G89.29 ; Pain in left knee M25.562 ; Sciatica, left side M54.32 ; Pain in left hip M25.552 ; Type 2 diabetes mellitus with hyperglycemia E11.65 ; assisted 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 and Mood disorder F39 [place] [id number] [place] [address] 31161- 5394 December, Diabetes type 2, controlled E11.9 [place] [id number] [place] [address] 11544- 5444 December, Diabetes type 2, controlled E11.9 [place] [id number] [place] [address] 36648- 1752 Oct, Shoulder pain, right M25.511 and Knee pain, right M25.561 [place] [id number] [place] [address] 27839- 3123 Oct, Knee pain, left M25.562 [place] [id number] [place] [address] 71483- 6506 Sep, Diabetes mellitus E11.9 and Knee pain M25.569 [place] [address] 76221- 0414 Sep, [place] [id number] [place] [address] 36999- 5250 Jun, Type 2 diabetes mellitus with diabetic neuropathy, unspecified E11.40 and Type 2 diabetes mellitus with hyperglycemia E11.65 [place] [id number] [place] [address] 06241- 3576 May, Diabetes mellitus E11.9 [place] [address] 89348- 4073 May, Diabetes mellitus E11.9 and Lumbago with sciatica, left side M54.42 [place] [id number] [place] [address] 11979- 0805 Jan, Osteoarthritis of knees, bilateral 715.96 [place] [id number] [place] [address] 28648- 4176 December, [place] [id number] [place] [address] 45748- 9419 December, Knee pain, bilateral 719.46 [place] [id number] [place] [address] 69220- 7339 Nov, Knee pain, bilateral 719.46 [place] [id number] [place] [address] 58440- 0620 14 Nov, 2014 [facility] [place] [facility] [address] [id number] [place] [address]- 0893 13 Nov, 2014 [facility] [place] [facility] [address] [id number] [place] [address]- 0853 13 Oct, 2014 [facility] [place] [facility] [address] [facility] [id number] [place] [address]- 4295 Oct, [facility] [place] [facility] [address] [id number] [place] [address]- 1336 Aug, [facility] [place] [facility] [address] [facility] [id number] [place] [address]- 4443 Aug, [facility] [place] [facility] [address] [id number] [place] [address]- 1071 17 Jul, 2014 [facility] [place] [facility] [address] [facility] [id number] [address]- 3316 17 Jul, 2014 [facility] [place] [facility] [address] [facility] [id number] [place] [address]- 3134 17 Jun, 2014 [facility] [place] [facility] [address] [facility] [id number] [place] [address]- 6522 17 Jun, 2014 [facility] [place] [facility] [address] [facility] [id number] [place] [address]- 2241 15 May, 2014 [facility] [place] [facility] [address] [facility] [id number] [address]- 8940 15 May, 2014 [facility] [place] [facility] [address] [id number] [address]- 9669 15 Apr, 2014 [facility] [place] [facility] [address] [id number] [address]- 2311 15 Apr, 2014 [facility] [place] [facility] [address] [facility] [id number] [address]- 5687 08 Apr, 2014 [facility] [place] [facility] [address] [facility] [id number][place] [address]- 6847 08 Apr, 2014 [facility] [place] [facility] [address] [id number] [place] [address]- 6424 Feb, [facility] [place] [facility] [address] [id number] [place] [address]- 1564 Feb, [facility] [place] [facility] [address] [id number] [place] [address]- 0555 December, [facility] [place] [facility] [address] [id number] [place] [address]- 1186 December, [facility] [place] [facility] [address] [id number] [place] [address]- 3886 December, [facility] [place] [facility] [address] [id number] [place] [address]- 5334 December, [facility] [place] [facility] [address] [id number] [place] [address]- 1279 Nov, [facility] [place] [facility] [address] [id number] [place] [address]- 2688 Nov, [facility] [place] [facility] [address] [id number] [place] [address]- 6517 Oct, [facility] [place] [facility] [address] [id number] [place] [address]- 1956 Oct, [facility] [place] [facility] [address] [id number] [place] [address]- 3088 Aug, [facility] [place] [facility] [address] [id number] [place] [address]- 5092 Aug, [facility] [place] [facility] [address] [id number] [place] [address]- 7405 Jul, [facility] [place] [facility] [address] [id number] [place] [address]- 9660 Jul, [facility] [place] [facility] [address] [id number] [place] [address]- 2546 May, [facility] [place] [facility] [address] [id number] [place] [address]- 8026 Jan, [facility] [address] [id number] [place] [address]- 1252 Jan, [facility] [place] [facility] [address] [id number] [place] [address]- 2627 December, [facility] [place] [facility] [address] [id number] [place] [address]- 7723 Nov, [facility] [place] [facility] [address] [id number] [place] [address]- 5794 25 Oct, 2012 [facility] [address] [id number] [place] [address]- 3384 19 Oct, 2012 [facility] [place] [facility] [address] [id number] [place] [address]- 2757 14 Oct, 2012 [facility] [place] [facility] [address] [id number] [place] [address]- 5104 Oct, [facility] [place] [facility] [address] [id number] [place] [address]- 9744 07 Oct, 2012 [facility] [place] [facility] [address] [id number] [place] [address]- 8581 07 Oct, 2012 [facility] [place] [facility] [address] [facility] [id number] [place] [address]- 3890 07 Sep, 2012 [facility] [place] [facility] [address] [id number] [place] [address]- 6595 Jul, [facility] [place] [facility] [address] [id number] [address]- 9623 Jul, [facility] [place] [facility] [address] [id number] [place] [address]- 0837 Jul, [facility] [place] [facility] [address] [facility] [id number] [place] [address]- 7706 Jun, [facility] [place] [facility] [address] [facility] [id number] [place] [address]- 2546 Jun, [facility] [place] [facility] [address] [id number] [place] [address]- 0989 Jun, [facility] [address] [id number] [place] [address]- 9949 Jun, [facility] [place] [facility] [address] [id number] [place] [address]- 1686 Mar, [facility] [address] [id number] [place] [address]- 2628 Mar, [facility] [place] [facility] [address] [id number] [place] [address]- 9239 Feb, [facility] [address] [id number] [place] [address]- 2349 Feb, [facility] [place] [facility] [address] [id number] [place] [address]- 1716 December, [facility] [address] [id number] [place] [address]- 8496 December, [facility] [address] [id number] [place] [address]- 2696 Nov, [facility] [place] [facility] [address] [id number] [place] [address]- 0913 Oct, [facility] [address] [id number] [place] [address]- 8737 Oct, [facility] [address] [id number] [place] [address]- 2811 Jul, [facility] [place] [facility] [address] [id number] [place] [address]- 2546 Sep, [facility] [place] [facility] [address] [id number] [place] [address]- 9529 Jul, [facility] [place] [facility] [address] [id number] [place] [address]- 2546 Jan, [facility] [place] [facility] [address] [id number] [place] [address]- 6057 Jun, [facility] [address] [facility] [id number] [address]- 8106 Mar, [facility] [address] [facility] [id number] [address]- 2336 Jan, [facility] [address] [facility] [id number][place] [address] 2546 December, [facility] [address] [facility] [id number] [address] 2546 Oct, [facility] [address] [facility] [id number] [address]- 9936 Sep, IMMUNIZATIONS No Known Immunizations SOCIAL HISTORY Never Assessed REASON FOR VISIT regulo keratosis cryotherapy-Braulio FAITH PLAN OF CARE Activity Details Future/Pending Procedure CRYOTHERAPY OF SKIN VITAL SIGNS Height 67 in 2017-11-23 Weight 274.1 lbs 2017-11-23 Temperature 97.9 degrees Fahrenheit 2017-11-23 Heart Rate 76 bpm 2017-11-23 Respiratory Rate 20 2017-11-23 BMI 42.93 kg/m2 2017-11-23 Blood pressure systolic 144 mmHg 2017-11-23 Blood pressure diastolic 72 mmHg 2017-11-23 MEDICATIONS Medication Instructions Dosage Frequency Start Date End Date Duration Status Aspirin 325 MG Orally Once a day 1 tablet 24h Active Oxycodone-Acetaminophen 10-325 MG Orally every 6 hrs 1 tablet as needed 6h Nov, 28 days Active Levemir FlexTouch 100 UNIT/ML Subcutaneous Once a day 90 units 24h May, Active Lisinopril 40 mg Orally Once a day 1 tablet 24h May, Active Metformin HCl 1000 MG Orally Twice a day 1 tablet with meals 12h May, Active Neurontin 800 MG Orally Three times a day 1 capsule 8h Feb, Active Lipitor 20 mg Orally Once a day 1 tablet 24h May, Active BD Pen Needle Ultrafine 29G X 12.7MM Inject 6h May, Active Humalog KwikPen 100 UNIT/ML Subcutaneous 3 times a day 30 units 8h 06 Dec, 2015 Active Lyrica 75 MG Orally Twice a day 1 capsule 12h Jan, 30 days Not -Taking Doxepin HCl 50 mg Orally Once a day, at night 2 capsules Nov, Active ProAir HFA 108 (90 Base) MCG/ACT Inhalation every 6 hrs 2 puffs as needed 6h Oct, Active PredniSONE 20 MG Orally Once a day 1 tablet 24h Not-Taking RESULTS No Results PROCEDURES Procedure Date Ordered Result Body Site CRYOTHERAPY OF SKIN November 23, 2017 [facility] VISIT ESTABLISHED PATIENT November 23, 2017 INSTRUCTIONS MEDICATIONS ADMINISTERED No Known Medications MEDICAL (GENERAL) HISTORY Type Description Date Medical History type II diabetes Medical History hyperlipidemia Medical History hypertension Medical History chronic pain back/knees Surgical History right knee arthroscopy 1994 Surgical History heart cath, 2010--clear Surgical History left knee arthroscopy 2010 Surgical History back surgery with rods 12/2016 Hospitalization History surgeries Hospitalization History [facility] ED- Back/Left Side Pain 06/06/2017 Hospitalization History [facility] ED- Congested, cough and SOB 11/07/2017
--- OUTSIDE RECORDS SUMMARY | 2018-04-20 16:02 | XMS REPORT ---
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 Active 422967686 Problem Type 2 diabetes mellitus with diabetic neuropathy, unspecified E11.40 Active 20222619 Problem Diabetes type 2, controlled E11.9 Active 90235397 Problem Type 2 diabetes mellitus with hyperglycemia E11.65 Active 875545257 Problem Controlled type 2 diabetes mellitus without complication, without long -term current use of insulin E11.9 Active 133539060 Problem Chronic fatigue R53.82 Active 49813816 Problem Mood disorder F39 Active 88898247 Problem Slow transit constipation K59.01 Active 70877361 Problem Other chronic pain G89.29 Active 63126123 Problem Diabetic mononeuropathy associated with type 2 diabetes mellitus E11.41 Active 824106095 Problem Neuropathy G62.9 Active 832687318 ALLERGIES No Information ENCOUNTERS Encounter Location Date Diagnosis [place] [id number] [place] [address] 14375- 1691 Apr, [place] [address] [place] [id number] [place] [address] 60054- 1565 Mar, Type 2 diabetes mellitus with hyperglycemia E11.65 [facility] [id number] [place] [address] 82124- 0393 Feb, Seborrheic keratoses L82.1 and Type 2 diabetes mellitus with diabetic neuropathy, unspecified E11.40 [place] [address] [place] [id number] [place] [address] 33645- 4408 Feb, Type 2 diabetes mellitus with diabetic neuropathy, unspecified E11.40 ; Renal insufficiency N28.9 and Chronic fatigue R53.82 [facility] [id number] [place] [address] 67021- 9288 Jan, Pneumonia of both lower lobes due to infectious organism J18.1 and Mood disorder F39 [facility] [address] [id number] [place] [address] 81605- 8230 Jan, BMI 40.0-44.9, adult Z68.41 [facility] [id number] [place] [address] 42052- 3918 Jan, [facility] [address] 47328- 8937 Jan, [facility] [id number] [place] [address] 68858 -3640 Jan, Wheezes R06.2 ; Diabetes type 2, controlled E11.9 and Pneumonia of right lower lobe due to infectious organism J18.1 [facility] [id number] [place] [address] 10055- 4588 Jan, Renal insufficiency N28.9 [facility] [id number] [place] [address] 95151- 6990 Jan, Seborrheic keratoses L82.1 [facility] [address] [id number] [place] [address] 16521- 6328 Jan, [facility] [id number] [place] [address] 98844- 7010 Jan, [facility] [id number] [place] [address] 73196- 6066 Jan, Renal insufficiency N28.9 [facility] [id number] [place] [address] 55349- 0579 Jan, [facility] [id number] [place] [address] 00638- 5382 Jan, Diabetes type 2, controlled E11.9 ; Mood disorder F39 and BMI 40.0-44.9, adult Z68.41 [facility] [id number] [place] [address] 39906- 2063 Jan, BMI 40.0-44.9, adult Z68.41 [facility] [address] [address] [id number] [place] [address]- 1593 December, [facility] [id number] [place] [address] 38258- 8344 December, [facility] [id number] [place] [address] 78256- 2556 December, Seborrheic keratoses L82.1 [facility] [id number] [place] [address], [place] [address]- 7064 December, Seborrheic keratoses L82.1 [facility] [id number] [place] [address] 13402- 8620 December, [facility] [id number] [address]- 5101 December, [facility] [id number] [place] [address] 50405- 8425 December, BMI 40.0-44.9, adult Z68.41 [facility] [address] [address]- 6560 December, [facility] [id number] [address]- 7558 December, [facility] [address] [address]- 1868 Nov, [facility] [id number] [address]- 7690 Nov, [facility] [address] [address]- 5573 Nov, Seborrheic keratoses L82.1 [place] [address] [place] [id number] [place] [address] 55415- 8140 Nov, Renal insufficiency N28.9 [place] [address] 73360- 5407 Nov, [place] [address] 31090- 6184 Nov, [place] [address] 97033- 9351 Nov, [place] [address] 37320- 4898 Nov, Type 2 diabetes mellitus with diabetic neuropathy, unspecified E11.40 ; Other chronic pain G89.29 ; Bronchitis J40 ; Renal cyst N28.1 ; Pain of left foot M79.672 and Pain in right foot M79.671 [place] [address] 95782- 0269 Oct, Type 2 diabetes mellitus without complications E11.9 [place] [address] 00079- 1375 Oct, SOB (shortness of breath) R06.02 [place] [address] [place] [id number] [place] [address] 66492- 3816 Oct, SOB (shortness of breath) R06.02 [place] [address] 91085- 8687 Sep, Type 2 diabetes mellitus without complications E11.9 [place] [address] 03580- 9501 Sep, Left flank pain R10.9 [place] [address] 97010- 0171 Sep, BMI 40.0-44.9, adult Z68.41 ; Left flank pain R10.9 and Seborrheic keratoses L82.1 [place] [address], [place] [address]- 9250 Aug, Type 2 diabetes mellitus without complications E11.9 [facility] [address] [address]- 5768 Jul, Type 2 diabetes mellitus without complications E11.9 and Abdominal pain, left lower quadrant R10.32 [facility] [address] [id number] [address] Jun, [facility] [address] [address]- 1073 Jun, Type 2 diabetes mellitus without complications E11.9 [facility] [address], [place] [address]- 9887 Jun, Controlled type 2 diabetes mellitus without complication, without long-term current use of insulin E11.9 and Seborrheic keratoses L82.1 [facility] [address], [place] [address] -3302 May, Acute back pain M54.9 [facility] [address] [place] [address] 60442- 4273 13 May, 2017 Type 2 diabetes mellitus without complications E11.9 [facility] [address], [place] [address]- 8547 28 Apr, 2017 Diabetes type 2, controlled E11.9 ; Lumbago with sciatica, left side M54.42 and Diabetic mononeuropathy associated with type 2 diabetes mellitus E11.41 [facility] [address], [place] [address]- 5016 Apr, Type 2 diabetes mellitus without complications E11.9 [facility] [address] [address]- 0707 05 Apr, 2017 [facility] [address], [place] [address]- 8750 Mar, Type 2 diabetes mellitus without complications E11.9 [facility] [address] [id number] [place] [address] 19601- 2437 Feb, Controlled type 2 diabetes mellitus without complication, without long-term current use of insulin E11.9 ; Neuropathy G62.9 and Onychomycosis B35.1 [place] [address] [place] [id number] [place] [address] 52524- 9374 15 Jan, 2017 Type 2 diabetes mellitus with diabetic neuropathy, unspecified E11.40 [place] [address] [place] [id number] [place] [address] 15827- 5929 Jan, Type 2 diabetes mellitus with diabetic neuropathy, unspecified E11.40 [place] [address] [place] [id number] [place] [address] 88200- 8539 December, Type 2 diabetes mellitus without complications E11.9 [place] [address] [place] [id number] [place] [address] 15106- 5951 December, Slow transit constipation K59.01 and Pain in right hip M25.551 [place] [address] [place] [id number] [place] [address] 07060- 3649 Nov, Type 2 diabetes mellitus without complications E11.9 [place] [address] [place] [id number] [place] [address] 74978- 0119 Oct, Lumbago with sciatica, left side M54.42 and Other chronic pain G89.29 [place] [address] [place] [id number] [place] [address] 17426- 9483 Sep, Diabetes mellitus E11.9 ; Lumbago with sciatica, left side M54.42 and Type 2 diabetes mellitus without complications E11.9 [place] [address] [place] [id number] [place] [address] 92041- 4643 Aug, Type 2 diabetes mellitus without complications E11.9 and residential 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 [facility] [address] [place] [address] [id number] Aug, Dental examination Z01.20 [facility] [address] [id number] [place] [address] [id number] Aug, Dental examination Z01.20 [facility] [address] [place] [address] 67134 -8517 Aug, Dental abscess K04.7 [facility] [address] [place] [address] 19683- 0859 Jul, Type 2 diabetes mellitus with hyperglycemia E11.65 and residential 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 [place] [address] [place] [id number] [place] [address] 80762- 5720 Jul, [place] [address] [place] [id number] [place] [address] 16195- 8787 Jul, Type 2 diabetes mellitus with diabetic neuropathy, unspecified E11.40 [place] [address] [place] [id number] [place] [address] 02012- 4532 Jun, Type 2 diabetes mellitus with diabetic neuropathy, unspecified E11.40 and Lumbago with sciatica, left side M54.42 [place] [address] [place] [address] 65341- 8308 May, Controlled type 2 diabetes mellitus without complication, without long-term current use of insulin E11.9 [place] [address] [place] [id number] [place] [address] 87596- 1608 08 Apr, 2016 Controlled type 2 diabetes mellitus without complication, without long-term current use of insulin E11.9 and Lumbar neuritis M54.16 [place] [address] [place] [id number] [place] [address] 01818- 9068 Mar, [place] [address] [place] [id number] [place] [address] 89514- 8850 Mar, Other chronic pain G89.29 ; Pain in left knee M25.562 ; Sciatica, left side M54.32 ; Pain in left hip M25.552 ; Type 2 diabetes mellitus with hyperglycemia E11.65 ; residential 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 and Mood disorder F39 [place] [address] [place] [id number] [place] [address] 00321- 9484 December, Diabetes type 2, controlled E11.9 [place] [address] [place] [id number] [place] [address] 56733- 0994 December, Diabetes type 2, controlled E11.9 [facility] [address] [id number] [place] [address] 58609- 5666 Oct, Shoulder pain, right M25.511 and Knee pain, right M25.561 [place] [address] [place] [id number] [place] [address] 45259- 4111 Oct, Knee pain, left M25.562 [place] [address] [place] [id number] [place] [address] 84255- 8152 Sep, Diabetes mellitus E11.9 and Knee pain M25.569 [place] [address] [place] [id number] [place] [address] 77035- 1320 Sep, [place] [address] [place] [id number] [place] [address] 16145- 2795 Jun, Type 2 diabetes mellitus with diabetic neuropathy, unspecified E11.40 and Type 2 diabetes mellitus with hyperglycemia E11.65 [place] [address] [place] [id number] [place] [address] 34504- 4126 May, Diabetes mellitus E11.9 [place] [address] [place] [id number] [place] [address] 36464- 3563 May, Diabetes mellitus E11.9 and Lumbago with sciatica, left side M54.42 [place] [address] [place] [id number] [place] [address] 72874- 8281 Jan, Osteoarthritis of knees, bilateral 715.96 [place] [address] [place] [id number] [place] [address] 10300- 1575 December, [place] [address] [place] [id number] [place] [address] 39036- 3478 December, Knee pain, bilateral 719.46 [place] [address] [place] [id number] [place] [address] 86674- 4500 29 Nov, 2014 Knee pain, bilateral 719.46 [facility] [address] [id number] [place] [address]- 8020 14 Nov, 2014 [facility] [address] [id number] [place] [address]- 3008 13 Nov, 2014 [facility] [address] [id number] [place] [address]- 5227 Oct, [facility] [address] [id number] [place] [address]- 9932 Oct, [facility] [address] [place] [id number] [place] [address], [place]- 3450 Aug, [facility] [address] [facility] [id number] [place] [address]- 4343 Aug, [facility] [address] [place] [address]- 3892 17 Jul, 2014 [facility] [address] [id number] [place] [address]- 5129 17 Jul, 2014 [facility] [address] [place] [address]- 4446 Jun, [facility] [id number] [place] [address]- 4512 17 Jun, 2014 [facility] [address] [id number] [place] [address]- 1669 15 May, 2014 [facility] [address] [id number] [place] [address]- 5925 15 May, 2014 [facility] [address] [facility] [id number] [place]- 6720 15 Apr, 2014 [facility] [place] [facility] [address] [facility] [id number] [place] [address]- 5595 15 Apr, 2014 [facility] [address] [facility] [id number] [place]- 1437 Apr, [facility] [place] [facility] [address] [id number] [place] [address]- 5563 Apr, [facility] [place] [facility] [address] [id number] [place] [address]- 6889 Feb, [facility] [place] [facility] [address] [id number] [place] [address]- 1723 Feb, [facility] [place] [facility] [address] [id number] [place] [address]- 2275 December, [facility] [place] [facility] [address] [id number] [place]- 9194 December, [facility] [place] [facility] [address] [id number] [place] [address]- 5328 December, [facility] [place] [facility] [address] [id number] [place] [address]- 2893 December, [facility] [place] [facility] [address] [id number] [place] [address]- 4323 Nov, [facility] [place] [facility] [address] [id number] [place] [address]- 3565 Nov, [facility] [place] [facility] [address] [id number] [place] [address]- 2819 Oct, [facility] [place] [facility] [address] [id number] [place] [address]- 9523 Oct, [facility] [place] [facility] [address] [id number] [place] [address]- 9508 Aug, [facility] [place] [facility] [address] [id number] [place] [address]- 5919 Aug, [facility] [place] [facility] [address] [id number] [place] [address]- 9186 Jul, [facility] [place] [facility] [address] [id number] [place] [address]- 5331 Jul, [facility] [place] [facility] [address] [id number] [address]- 2436 04 May, 2013 [facility] [address] [id number] [place] [address]- 0867 Jan, [facility] [address] [facility] [id number] [place] [address]- 3716 Jan, [facility] [address] [facility] [id number] [place] [address]- 3186 December, [facility] [address] [id number] [place] [address]- 3275 Nov, [facility] [address] [facility] [id number] [place] [address]- 9001 25 Oct, 2012 [facility] [address] [facility] [id number] [place] [address] 2546 19 Oct, 2012 [facility] [address] [place] [address]- 3026 14 Oct, 2012 [facility] [address] [facility] [id number] [place] [address]- 1787 Oct, [facility] [id number] [place] [address]- 1202 07 Oct, 2012 [facility] [id number] [place] [address]- 0662 07 Oct, 2012 [facility] [address] [facility] [id number] [place] [address]- 4215 07 Sep, 2012 [facility] [address] [facility] [id number] [place] [address]- 3788 18 Jul, 2012 [facility] [address] [id number] [place] [address]- 7672 Jul, [facility] [address] [facility] [id number] [place] [address]- 9696 Jul, [facility] [address] [facility] [id number] [place] [address]- 7188 Jun, [facility] [place] [facility] [address] [id number] [place] [address]- 5524 Jun, [facility] [place] [facility] [address] [id number] [place] [address]- 3680 Jun, [facility] [place] [facility] [address] [id number] [place] [address]- 2546 Jun, [facility] [place] [facility] [address] [id number] [place] [address]- 1986 Mar, [facility] [place] [facility] [address] [id number] [place] [address]- 8157 Mar, [facility] [place] [facility] [address] [id number] [place] [address]- 3106 Feb, [facility] [place] [facility] [address] [id number] [place] [address]- 4071 Feb, [facility] [place] [facility] [address] [id number] [place] [address]- 8426 December, [facility] [place] [facility] [address] [id number] [place] [address]- 8621 December, [facility] [place] [facility] [address] [id number] [place] [address]- 5976 Nov, [facility] [place] [facility] [address] [id number] [place] [address]- 2546 Oct, [facility] [place] [facility] [address] [id number] [place] [address]- 2546 Oct, [facility] [place] [facility] [address] [id number] [place] [address]- 8186 Jul, [facility] [place] [facility] [address] [id number] [place] [address]- 2546 Sep, [facility] [place] [facility] [address] [id number] [place] [address]- 2546 Jul, [facility] [place] [facility] [address] [id number] [place] [address]- 1165 15 Jan, 2010 [facility] [address] [facility] [id number] [place] [address]- 2116 Jun, [facility] [address], [place] [address]- 2546 Mar, [facility] [id number] [address] Jan, [facility] [id number], [place] [address] December, [facility] [id number], [place] [address] Oct, [facility] [id number], [place] [address] Sep, IMMUNIZATIONS No Known Immunizations SOCIAL HISTORY [...] Hospitalization History surgeries Hospitalization History [facility] ED- Back/Left Side Pain 06/06/2017 Hospitalization History [facility] ED- Congested, cough and SOB 11/07/2017
--- OUTSIDE RECORDS SUMMARY | 2018-04-20 16:03 | XMS REPORT ---
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 174442484 Problem Type 2 diabetes mellitus with diabetic neuropathy, unspecified E11.40 Active 60111949 Problem Diabetes type 2, controlled E11.9 Active 83462375 Problem Type 2 diabetes mellitus with hyperglycemia E11.65 Active 911269389 Problem Controlled type 2 diabetes mellitus without complication, without long -term current use of insulin E11.9 Active 681330055 Problem Chronic fatigue R53.82 Active 92563384 Problem Mood disorder F39 Active 02290779 Problem Slow transit constipation K59.01 Active 80492963 Problem Other chronic pain G89.29 Active 17903016 Problem Diabetic mononeuropathy associated with type 2 diabetes mellitus E11.41 Active 899543805 Problem Neuropathy G62.9 Active 562622890 ALLERGIES No Information ENCOUNTERS Encounter Location Date Diagnosis [place] [address] [id number] [address] Mar, [place] [id number] [address] Feb, Seborrheic keratoses L82.1 and Type 2 diabetes mellitus with diabetic neuropathy, unspecified E11.40 [facility] [id number] [place] [address] 33856- 8887 Feb, Type 2 diabetes mellitus with diabetic neuropathy, unspecified E11.40 ; Renal insufficiency N28.9 and Chronic fatigue R53.82 [place] [id number] [address] 28 Jan, 2018 Pneumonia of both lower lobes due to infectious organism J18.1 and Mood disorder F39 [facility] [id number] [place] [address] 01768- 9322 Jan, BMI 40.0-44.9, adult Z68.41 [place] [id number] [place] [address] 04934- 4801 Jan, [facility] [id number] [place] [address] 63815- 3198 Jan, [facility] [id number] [place] [address] 97200 -5132 Jan, Wheezes R06.2 ; Diabetes type 2, controlled E11.9 and Pneumonia of right lower lobe due to infectious organism J18.1 [place] [id number] [place] [address] 99323- 4021 Jan, Renal insufficiency N28.9 [facility] [id number] [place] [address] 69769- 3634 Jan, Seborrheic keratoses L82.1 [facility] [id number] [place] [address] 53782- 8280 Jan, [facility] [id number] [place] [address] 18374- 0471 Jan, [facility] [id number] [place] [address] 74690- 6760 08 Jan, 2018 Renal insufficiency N28.9 [facility] [id number] [place] [address] 08556- 6700 07 Jan, 2018 [place] [id number] [place] [address] 18358- 3482 04 Jan, 2018 Diabetes type 2, controlled E11.9 ; Mood disorder F39 and BMI 40.0-44.9, adult Z68.41 [facility] [id number] [address] 8145 Jan, BMI 40.0-44.9, adult Z68.41 [facility] [id number] [place] [address] 5095 December, [facility] [address] [address] 5236 December, [facility] [id number] [place] [address] 03296- 4335 December, Seborrheic keratoses L82.1 [facility] [address] [place] [address]- 4246 December, Seborrheic keratoses L82.1 [facility] [id number] [place] [address]- 5306 December, [facility] [id number] [place] [address] 96211- 7906 December, [facility] [address] [address]- 9240 December, BMI 40.0-44.9, adult Z68.41 [facility] [address] [address]- 2088 December, [facility] [address] [address]- 8821 December, [facility] [address] [address]- 8298 Nov, [facility] [address] [address]- 9901 Nov, [facility] [address], [place] [address]- 3319 Nov, Seborrheic keratoses L82.1 [facility] [address] [address]- 5194 Nov, Renal insufficiency N28.9 [place] [id number] [place] [address] 23688- 0189 11 Nov, 2017 [place] [id number] [place] [address] 94930- 1867 Nov, [place] [id number] [place] [address] 31593- 2504 Nov, [place] [address] [address]- [address] Nov, Type 2 diabetes mellitus with diabetic neuropathy, unspecified E11.40 ; Other chronic pain G89.29 ; Bronchitis J40 ; Renal cyst N28.1 ; Pain of left foot M79.672 and Pain in right foot M79.671 [place] [id number] [place] [address] 09351- 0026 Oct, Type 2 diabetes mellitus without complications E11.9 [place] [id number] [place] [address] 87822- 3926 Oct, SOB (shortness of breath) R06.02 [place] [id number] [place] [address] 07873- 7741 Oct, SOB (shortness of breath) R06.02 [place] [id number] [place] [address] 46400- 5525 Sep, Type 2 diabetes mellitus without complications E11.9 [place] [id number] [place] [address] 69662- 1501 Sep, Left flank pain R10.9 [place] [id number] [place] [address] 17462- 4064 Sep, BMI 40.0-44.9, adult Z68.41 ; Left flank pain R10.9 and Seborrheic keratoses L82.1 [place] [id number] [place] [address] 43189- 6950 Aug, Type 2 diabetes mellitus without complications E11.9 [place] [address], [place] [address]- 3932 Jul, Type 2 diabetes mellitus without complications E11.9 and Abdominal pain, left lower quadrant R10.32 [facility] [address] [id number] [address] Jun, [facility] [address], [place] [address]- 9752 Jun, Type 2 diabetes mellitus without complications E11.9 [facility] [address], [place] [address]- 9262 Jun, Controlled type 2 diabetes mellitus without complication, without long-term current use of insulin E11.9 and Seborrheic keratoses L82.1 [facility] [address], [place] [address] May, Acute back pain M54.9 [facility] [address] [place] [address] 13285- 9593 May, Type 2 diabetes mellitus without complications E11.9 [facility] [address] [place] [address] 60737- 7311 28 Apr, 2017 Diabetes type 2, controlled E11.9 ; Lumbago with sciatica, left side M54.42 and Diabetic mononeuropathy associated with type 2 diabetes mellitus E11.41 [facility] [address], [place] [address]- 0897 Apr, Type 2 diabetes mellitus without complications E11.9 [facility] [address], [place] [address]- 8011 Apr, [facility] [id number] [place] [address] 99938- 3942 Mar, Type 2 diabetes mellitus without complications E11.9 [facility] [address], [place] [address]- 0648 Feb, Controlled type 2 diabetes mellitus without complication, without long-term current use of insulin E11.9 ; Neuropathy G62.9 and Onychomycosis B35.1 [place] [id number] [place] [address] 13354- 3062 Jan, Type 2 diabetes mellitus with diabetic neuropathy, unspecified E11.40 [place] [id number] [place] [address] 92815- 9796 Jan, Type 2 diabetes mellitus with diabetic neuropathy, unspecified E11.40 [place] [id number] [place] [address] 11886- 8170 December, Type 2 diabetes mellitus without complications E11.9 [place] [id number] [place] [address] 14720- 8697 December, Slow transit constipation K59.01 and Pain in right hip M25.551 [place] [id number] [place] [address] 10798- 6158 Nov, Type 2 diabetes mellitus without complications E11.9 [place] [id number] [place] [address] 54958- 4347 Oct, Lumbago with sciatica, left side M54.42 and Other chronic pain G89.29 [place] [id number] [place] [address] 36260- 6205 Sep, Diabetes mellitus E11.9 ; Lumbago with sciatica, left side M54.42 and Type 2 diabetes mellitus without complications E11.9 [place] [address] [place] [address] 51227- 0803 Aug, Type 2 diabetes mellitus without complications E11.9 and 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 [facility] [id number] [place] [address] [id number] Aug, Dental examination Z01.20 [facility] [id number] [place] [address] [id number] Aug, Dental examination Z01.20 [facility] [id number] [place] [address] 15605 -0340 Aug, Dental abscess K04.7 [place] [id number] [place] [address] 81846- 6343 Jul, Type 2 diabetes mellitus with hyperglycemia E11.65 and [facility] 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 [place] [id number] [place] [address] 59376- 6253 Jul, [place] [address] 34146- 4034 Jul, Type 2 diabetes mellitus with diabetic neuropathy, unspecified E11.40 [place] [id number] [place] [address] 37567- 9307 Jun, Type 2 diabetes mellitus with diabetic neuropathy, unspecified E11.40 and Lumbago with sciatica, left side M54.42 [place] [id number] [place] [address] 15672- 4752 May, Controlled type 2 diabetes mellitus without complication, without long-term current use of insulin E11.9 [place] [id number] [place] [address] 84006- 5358 Apr, Controlled type 2 diabetes mellitus without complication, without long-term current use of insulin E11.9 and Lumbar neuritis M54.16 [place] [id number] [place] [address] 42407- 7664 Mar, [place] [id number] [place] [address] 45239- 4454 Mar, Other chronic pain G89.29 ; Pain in left knee M25.562 ; Sciatica, left side M54.32 ; Pain in left hip M25.552 ; Type 2 diabetes mellitus with hyperglycemia E11.65 ; 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 and Mood disorder F39 [place] [id number] [place] [address] 97883- 8770 December, Diabetes type 2, controlled E11.9 [place] [id number] [place] [address] 50953- 4666 December, Diabetes type 2, controlled E11.9 [place] [id number] [place] [address] 55396- 0062 Oct, Shoulder pain, right M25.511 and Knee pain, right M25.561 [place] [id number] [place] [address] 46953- 3616 Oct, Knee pain, left M25.562 [place] [id number] [place] [address] 79567- 3905 Sep, Diabetes mellitus E11.9 and Knee pain M25.569 [place] [id number] [place] [address] 94459- 7213 Sep, [place] [id number] [place] [address] 92420- 9594 Jun, Type 2 diabetes mellitus with diabetic neuropathy, unspecified E11.40 and Type 2 diabetes mellitus with hyperglycemia E11.65 [place] [id number] [place] [address] 59353- 0257 May, Diabetes mellitus E11.9 [place] [id number] [place] [address] 02590- 4811 May, Diabetes mellitus E11.9 and Lumbago with sciatica, left side M54.42 [place] [id number] [place] [address] 52796- 0062 Jan, Osteoarthritis of knees, bilateral 715.96 [place] [id number] [place] [address] 44527- 3147 December, [place] [id number] [place] [address] 58162- 4442 December, Knee pain, bilateral 719.46 [place] [id number] [place] [address] 75226- 5314 Nov, Knee pain, bilateral 719.46 [place] [id number] [place] [address] 44141- 0524 14 Nov, 2014 [facility] [place] [facility] [address] [id number] [place] [address]- 8106 13 Nov, 2014 [facility] [place] [facility] [address] [id number] [place] [address]- 6575 13 Oct, 2014 [facility] [place] [facility] [address] [id number] [place] [address]- 1186 Oct, [facility] [place] [facility] [address] [id number] [place] [address]- 1463 Aug, [facility] [place] [facility] [address] [id number] [place] [address]- 3064 Aug, [facility] [place] [facility] [address] [id number] [place] [address]- 5199 17 Jul, 2014 [facility] [place] [facility] [address] [facility] [id number] [place] [address]- 9618 17 Jul, 2014 [facility] [place] [facility] [address] [id number] [place] [address]- 9648 17 Jun, 2014 [facility] [place] [facility] [address] [facility] [id number] [place] [address]- 8097 17 Jun, 2014 [facility] [place] [facility] [address] [facility] [id number] [place] [address]- 4419 15 May, 2014 [facility] [place] [facility] [address] [id number] [address]- 1222 15 May, 2014 [facility] [place] [facility] [address] [id number] [address]- 9667 15 Apr, 2014 [facility] [place] [facility] [address] [id number] [place] [address]- 3792 15 Apr, 2014 [facility] [place] [facility] [address] [facility] [id number] [place] [address]- 7470 08 Apr, 2014 [facility] [place] [facility] [address] [facility] [id number] [place] [address]- 1887 08 Apr, 2014 [facility] [place] [facility] [address] [id number] [place] [address]- 5646 Feb, [facility] [place] [facility] [address] [id number] [place] [address]- 7304 Feb, [facility] [place] [facility] [address] [id number] [place] [address]- 1366 December, [facility] [place] [facility] [address] [id number] [place] [address]- 2022 December, [facility] [place] [facility] [address] [id number] [place] [address]- 5124 December, [facility] [place] [facility] [address] [id number] [place] [address]- 9786 December, [facility] [place] [facility] [address] [id number] [place] [address]- 6613 Nov, [facility] [place] [facility] [address] [id number] [place] [address]- 7542 Nov, [facility] [place] [facility] [address] [id number] [place] [address]- 0212 Oct, [facility] [place] [facility] [address] [id number] [place] [address]- 6175 Oct, [facility] [place] [facility] [address] [id number] [place] 8261 Aug, [facility] [place] [facility] [address] [id number] [place] [address]- 5793 Aug, [facility] [place] [facility] [address] [id number] [place] [address]- 3699 Jul, [facility] [place] [facility] [address] [id number] [place] [address]- 3616 Jul, [facility] [place] [facility] [address] [id number] [place] [address]- 2546 May, [facility] [place] [facility] [address] [id number] [place] [address]- 3941 Jan, [facility] [place] [facility] [address] [id number] [place] [address]- 3580 10 Jan, 2013 [facility] [place] [facility] [address] [id number] [place] [address]- 7491 December, [facility] [place] [facility] [address] [id number] [place] [address]- 9494 Nov, [facility] [place] [facility] [address] [id number] [place] [address]- 2045 25 Oct, 2012 [facility] [place] [facility] [address] [id number] [place] [address]- 9825 19 Oct, 2012 [facility] [place] [facility] [address] [id number] [place] [address]- 0349 14 Oct, 2012 [facility] [place] [facility] [address] [id number] [place] [address]- 1219 Oct, [facility] [place] [facility] [address] [id number] [place] [address]- 6590 07 Oct, 2012 [facility] [place] [facility] [address] [id number] [place] [address]- 7776 07 Oct, 2012 [facility] [place] [facility] [address] [facility] [id number] [place] [address]- 8190 07 Sep, 2012 [facility] [place] [facility] [address] [id number] [place] [address]- 1976 Jul, [facility] [place] [facility] [address] [id number] [place] [address]- 5715 Jul, [facility] [place] [facility] [address] [id number] [place] [address]- 1803 Jul, [facility] [place] [facility] [address] [id number] [place] [address]- 2749 Jun, [facility] [place] [facility] [address] [id number] [place] [address]- 2416 Jun, [facility] [place] [facility] [address] [id number] [place] [address]- 2593 Jun, [facility] [address] [id number] [place] [address]- 1511 Jun, [facility] [place] [facility] [address] [id number] [place] [address]- 3656 Mar, [facility] [place] [facility] [address] [id number] [place] [address]- 1046 Mar, [facility] [place] [facility] [address] [id number] [place] [address]- 5847 Feb, [facility] [place] [facility] [address] [id number] [place] [address]- 8387 Feb, [facility] [place] [facility] [address] [id number] [place] [address]- 2676 December, [facility] [address] [id number] [place] [address]- 2726 December, [facility] [place] [facility] [address] [id number] [place] [address]- 0095 Nov, [facility] [place] [facility] [address] [id number] [place] [address]- 8752 Oct, [facility] [place] [facility] [address] [id number] [place] [address]- 9912 Oct, [facility] [place] [facility] [address] [id number] [place] [address]- 1551 Jul, [facility] [place] [facility] [address] [id number] [place] [address]- 2546 Sep, [facility] [place] [facility] [address] [id number] [place] [address]- 6264 Jul, [facility] [place] [facility] [address] [id number] [place] [address]- 2546 Jan, [facility] [place] [facility] [address] [id number] [place] [address]- 3048 Jun, [facility] [address] [facility] [id number] [address]- 2546 Mar, [facility] [id number] [address]- 2546 Jan, [facility] [id number] [address]- 2546 December, [facility] [address] [address]- 2546 Oct, [facility] [address] [facility] [id number] [address]- 2506 Sep, IMMUNIZATIONS No Known Immunizations SOCIAL HISTORY [...] rods 12/2016 Hospitalization History surgeries Hospitalization History [facility] ED- Back/Left Side Pain 06/06/2017 Hospitalization History [facility] ED- Congested, cough and SOB 11/07/2017
--- OUTSIDE RECORDS SUMMARY | 2018-04-20 16:03 | XMS REPORT ---
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 Active 565471171 Problem Type 2 diabetes mellitus with diabetic neuropathy, unspecified E11.40 Active 20631190 Problem Diabetes type 2, controlled E11.9 Active 46975994 Problem Type 2 diabetes mellitus with hyperglycemia E11.65 Active 495220049 Problem Controlled type 2 diabetes mellitus without complication, without long -term current use of insulin E11.9 Active 668642405 Problem Chronic fatigue R53.82 Active 25576005 Problem Mood disorder F39 Active 46837929 Problem Slow transit constipation K59.01 Active 01034077 Problem Other chronic pain G89.29 Active 11726130 Problem Diabetic mononeuropathy associated with type 2 diabetes mellitus E11.41 Active 085930916 Problem Neuropathy G62.9 Active [id number] ALLERGIES No Information ENCOUNTERS Encounter Location Date Diagnosis [place] [id number] [address] Mar, [place] [id number], [place] [address] 90[address] Feb, Seborrheic keratoses L82.1 and Type 2 diabetes mellitus with diabetic neuropathy, unspecified E11.40 [facility] [id number] [place] [address] 13522- 8237 Feb, Type 2 diabetes mellitus with diabetic neuropathy, unspecified E11.40 ; Renal insufficiency N28.9 and Chronic fatigue R53.82 [place] [id number], [place] [address] 2567 28 Jan, 2018 Pneumonia of both lower lobes due to infectious organism J18.1 and Mood disorder F39 [facility] [id number] [place] [address] 45551- 0636 Jan, BMI 40.0-44.9, adult Z68.41 [place] [id number] [place] [address] 54843- 0760 Jan, [facility] [id number] [place] [address] 18581- 9305 Jan, [facility] [id number] [place] [address] 04157 -8475 Jan, Wheezes R06.2 ; Diabetes type 2, controlled E11.9 and Pneumonia of right lower lobe due to infectious organism J18.1 [place] [id number] [place] [address] 69413- 4154 Jan, Renal insufficiency N28.9 [facility] [id number] [place] [address] 53364- 7730 Jan, Seborrheic keratoses L82.1 [facility] [id number] [place] [address] 87117- 2735 Jan, [facility] [id number] [place] [address] 07109- 9084 Jan, [facility] [id number] [place] [address] 19984- 7657 08 Jan, 2018 Renal insufficiency N28.9 [facility] [id number] [place] [address] 11451- 3488 07 Jan, 2018 [place] [id number] [place] [address] 78576- 1600 04 Jan, 2018 Diabetes type 2, controlled E11.9 ; Mood disorder F39 and BMI 40.0-44.9, adult Z68.41 [facility] [id number] [address]- 3675 Jan, BMI 40.0-44.9, adult Z68.41 [facility] [id number] [place] [address]- 7066 December, [facility] [address], [place] [address]- 4866 December, [facility] [id number] [place] [address] 89698- 2690 December, Seborrheic keratoses L82.1 [facility] [address] [place] [address]- 5416 December, Seborrheic keratoses L82.1 [facility] [id number] [place] [address]- 8166 December, [facility] [id number] [place] [address] 19732- 9045 December, [facility] [address] [address]- 9473 December, BMI 40.0-44.9, adult Z68.41 [facility] [address], [place] [address]- 3320 December, [facility] [address], [place] [address]- 0591 December, [facility] [address], [place] [address]- 6626 Nov, [facility] [address], [place] [address]- 7130 Nov, [facility] [address], [place] [address]- 3997 Nov, Seborrheic keratoses L82.1 [facility] [address], [place] [address]- 8308 Nov, Renal insufficiency N28.9 [place] [id number] [place] [address] 51266- 1776 11 Nov, 2017 [place] [id number] [place] [address] 60803- 5310 Nov, [place] [id number] [place] [address] 65347- 1288 Nov, [place] [address] [address]- 9207 Nov, Type 2 diabetes mellitus with diabetic neuropathy, unspecified E11.40 ; Other chronic pain G89.29 ; Bronchitis J40 ; Renal cyst N28.1 ; Pain of left foot M79.672 and Pain in right foot M79.671 [place] [id number] [place] [address] 79002- 2618 Oct, Type 2 diabetes mellitus without complications E11.9 [place] [id number] [place] [address] 86211- 3653 Oct, SOB (shortness of breath) R06.02 [place] [id number] [place] [address] 69892- 2867 Oct, SOB (shortness of breath) R06.02 [place] [id number] [place] [address] 89570- 7272 Sep, Type 2 diabetes mellitus without complications E11.9 [place] [id number] [place] [address] 05733- 0048 Sep, Left flank pain R10.9 [place] [id number] [place] [address] 64220- 0933 Sep, BMI 40.0-44.9, adult Z68.41 ; Left flank pain R10.9 and Seborrheic keratoses L82.1 [place] [id number] [place] [address] 71605- 9144 Aug, Type 2 diabetes mellitus without complications E11.9 [place] [address], [place] [address]- 9272 Jul, Type 2 diabetes mellitus without complications E11.9 and Abdominal pain, left lower quadrant R10.32 [facility] [address] [id number] [address] Jun, [facility] [address], [place] [address]- 0107 Jun, Type 2 diabetes mellitus without complications E11.9 [facility] [address], [place] [address]- 3114 Jun, Controlled type 2 diabetes mellitus without complication, without long-term current use of insulin E11.9 and Seborrheic keratoses L82.1 [facility] [address], [place] [address] May, Acute back pain M54.9 [facility] [address] [place] [address] 83670- 5739 May, Type 2 diabetes mellitus without complications E11.9 [facility] [address] [place] [address] 08954- 2182 28 Apr, 2017 Diabetes type 2, controlled E11.9 ; Lumbago with sciatica, left side M54.42 and Diabetic mononeuropathy associated with type 2 diabetes mellitus E11.41 [facility] [address], [place] [address]- 4971 Apr, Type 2 diabetes mellitus without complications E11.9 [facility] [address], [place] [address]- 0292 Apr, [facility] [id number] [place] [address] 31970- 8155 Mar, Type 2 diabetes mellitus without complications E11.9 [facility] [address], [place] [address]- 9645 Feb, Controlled type 2 diabetes mellitus without complication, without long-term current use of insulin E11.9 ; Neuropathy G62.9 and Onychomycosis B35.1 [place] [id number] [place] [address] 08712- 3263 Jan, Type 2 diabetes mellitus with diabetic neuropathy, unspecified E11.40 [place] [id number] [place] [address] 03123- 9847 Jan, Type 2 diabetes mellitus with diabetic neuropathy, unspecified E11.40 [place] [id number] [place] [address] 46245- 7119 December, Type 2 diabetes mellitus without complications E11.9 [place] [id number] [place] [address] 89161- 2248 December, Slow transit constipation K59.01 and Pain in right hip M25.551 [place] [id number] [place] [address] 66663- 3546 Nov, Type 2 diabetes mellitus without complications E11.9 [place] [id number] [place] [address] 68339- 8536 Oct, Lumbago with sciatica, left side M54.42 and Other chronic pain G89.29 [place] [id number] [place] [address] 66268- 1527 Sep, Diabetes mellitus E11.9 ; Lumbago with sciatica, left side M54.42 and Type 2 diabetes mellitus without complications E11.9 [place] [address] [place] [address] 41165- 1070 Aug, Type 2 diabetes mellitus without complications E11.9 and 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 [facility] [id number] [place] [address] [id number] Aug, Dental examination Z01.20 [facility] [id number] [place] [address] [id number] Aug, Dental examination Z01.20 [facility] [id number] [place] [address] 32727 -9856 Aug, Dental abscess K04.7 [place] [id number] [place] [address] 96180- 4962 Jul, Type 2 diabetes mellitus with hyperglycemia E11.65 and penitentiary 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 [place] [id number] [place] [address] 94973- 0716 Jul, [place] [address] 16755- 0546 Jul, Type 2 diabetes mellitus with diabetic neuropathy, unspecified E11.40 [place] [id number] [place] [address] 49010- 1032 Jun, Type 2 diabetes mellitus with diabetic neuropathy, unspecified E11.40 and Lumbago with sciatica, left side M54.42 [place] [id number] [place] [address] 10298- 8085 May, Controlled type 2 diabetes mellitus without complication, without long-term current use of insulin E11.9 [place] [id number] [place] [address] 80393- 0321 Apr, Controlled type 2 diabetes mellitus without complication, without long-term current use of insulin E11.9 and Lumbar neuritis M54.16 [place] [id number] [place] [address] 78947- 1875 Mar, [place] [id number] [place] [address] 51211- 9680 Mar, Other chronic pain G89.29 ; Pain in left knee M25.562 ; Sciatica, left side M54.32 ; Pain in left hip M25.552 ; Type 2 diabetes mellitus with hyperglycemia E11.65 ; 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 and Mood disorder F39 [place] [id number] [place] [address] 47798- 2279 December, Diabetes type 2, controlled E11.9 [place] [id number] [place] [address] 78230- 2205 December, Diabetes type 2, controlled E11.9 [place] [id number] [place] [address] 53415- 0229 Oct, Shoulder pain, right M25.511 and Knee pain, right M25.561 [place] [id number] [place] [address] 07420- 2500 Oct, Knee pain, left M25.562 [place] [id number] [place] [address] 82566- 2956 Sep, Diabetes mellitus E11.9 and Knee pain M25.569 [place] [id number] [place] [address] 90430- 3850 Sep, [place] [id number] [place] [address] 82887- 4117 Jun, Type 2 diabetes mellitus with diabetic neuropathy, unspecified E11.40 and Type 2 diabetes mellitus with hyperglycemia E11.65 [place] [id number] [place] [address] 24687- 2430 May, Diabetes mellitus E11.9 [place] [id number] [place] [address] 71336- 6072 May, Diabetes mellitus E11.9 and Lumbago with sciatica, left side M54.42 [place] [id number] [place] [address] 64694- 2054 Jan, Osteoarthritis of knees, bilateral 715.96 [place] [id number] [place] [address] 66488- 3037 December, [place] [id number] [place] [address] 50108- 5819 December, Knee pain, bilateral 719.46 [place] [id number] [place] [address] 29353- 8239 Nov, Knee pain, bilateral 719.46 [place] [id number] [place] [address] 04502- 7621 14 Nov, 2014 [facility] [place] [facility] [address] [id number] [place] [address]- 8345 13 Nov, 2014 [facility] [place] [facility] [address] [id number] [place] [address]- 1752 13 Oct, 2014 [facility] [place] [facility] [address] [id number] [place] [address]- 4290 Oct, [facility] [place] [facility] [address] [id number] [place] [address]- 6561 Aug, [facility] [place] [facility] [address] [id number] [place] [address]- 3282 Aug, [facility] [place] [facility] [address] [id number] [place] [address]- 6969 17 Jul, 2014 [facility] [place] [facility] [address] [facility] [id number] [place] [address]- 2671 17 Jul, 2014 [facility] [place] [facility] [address] [id number] [place] [address]- 4516 17 Jun, 2014 [facility] [place] [facility] [address] [facility] [id number] [place] [address]- 6750 17 Jun, 2014 [facility] [place] [facility] [address] [facility] [id number] [place] [address]- 2531 15 May, 2014 [facility] [place] [facility] [address] [id number] [address]- 5753 15 May, 2014 [facility] [place] [facility] [address] [id number], [place] [address]- 7235 15 Apr, 2014 [facility] [place] [facility] [address] [id number] [place] [address]- 3105 15 Apr, 2014 [facility] [place] [facility] [address] [facility] [id number] [place] [address]- 3413 08 Apr, 2014 [facility] [place] [facility] [address] [facility] [id number] [place] [address]- 1439 08 Apr, 2014 [facility] [place] [facility] [address] [id number] [place] [address]- 4466 Feb, [facility] [place] [facility] [address] [id number] [place] [address]- 1771 Feb, [facility] [place] [facility] [address] [id number] [place] [address]- 1916 December, [facility] [place] [facility] [address] [id number] [place] [address]- 1714 December, [facility] [place] [facility] [address] [id number] [place] [address]- 7240 December, [facility] [place] [facility] [address] [id number] [place] [address]- 3839 December, [facility] [place] [facility] [address] [id number] [place] [address]- 9851 Nov, [facility] [place] [facility] [address] [id number] [place] [address]- 1638 Nov, [facility] [place] [facility] [address] [id number] [place] [address]- 4783 Oct, [facility] [place] [facility] [address] [id number] [place] [address]- 9235 Oct, [facility] [place] [facility] [address] [id number] [place]- 3595 Aug, [facility] [place] [facility] [address] [id number] [place] [address]- 6197 Aug, [facility] [place] [facility] [address] [id number] [place] [address]- 4879 Jul, [facility] [place] [facility] [address] [id number] [place] [address]- 2236 Jul, [facility] [place] [facility] [address] [id number] [place] [address]- 2546 May, [facility] [place] [facility] [address] [id number] [place] [address]- 9975 Jan, [facility] [place] [facility] [address] [id number] [place] [address]- 9749 10 Jan, 2013 [facility] [place] [facility] [address] [id number] [place] [address]- 5354 December, [facility] [place] [facility] [address] [id number] [place] [address]- 9611 Nov, [facility] [place] [facility] [address] [id number] [place] [address]- 0271 25 Oct, 2012 [facility] [place] [facility] [address] [id number] [place] [address]- 7104 19 Oct, 2012 [facility] [place] [facility] [address] [id number] [place] [address]- 0354 14 Oct, 2012 [facility] [place] [facility] [address] [id number] [place] [address]- 3668 Oct, [facility] [place] [facility] [address] [id number] [place] [address]- 1708 07 Oct, 2012 [facility] [place] [facility] [address] [id number] [place] [address]- 4123 07 Oct, 2012 [facility] [place] [facility] [address] [facility] [id number] [place] [address]- 2501 07 Sep, 2012 [facility] [place] [facility] [address] [id number] [place] [address]- 0365 Jul, [facility] [place] [facility] [address] [id number] [place] [address]- 2355 Jul, [facility] [place] [facility] [address] [id number] [place] [address]- 1680 Jul, [facility] [place] [facility] [address] [id number] [place] [address]- 2479 Jun, [facility] [place] [facility] [address] [id number] [place] [address]- 3034 Jun, [facility] [place] [facility] [address] [id number] [place] [address]- 3212 Jun, [facility] [address] [id number] [place] [address]- 5574 Jun, [facility] [place] [facility] [address] [id number] [place] [address]- 6596 Mar, [facility] [place] [facility] [address] [id number] [place] [address]- 5106 Mar, [facility] [place] [facility] [address] [id number] [place] [address]- 1604 Feb, [facility] [place] [facility] [address] [id number] [place] [address]- 2961 Feb, [facility] [place] [facility] [address] [id number] [place] [address]- 1506 December, [facility] [address] [id number] [place] [address]- 7116 December, [facility] [place] [facility] [address] [id number] [place] [address]- 4357 Nov, [facility] [place] [facility] [address] [id number] [place] [address]- 7829 Oct, [facility] [place] [facility] [address] [id number] [place] [address]- 5992 Oct, [facility] [place] [facility] [address] [id number] [place] [address]- 3636 Jul, [facility] [place] [facility] [address] [id number] [place] [address]- 2546 Sep, [facility] [place] [facility] [address] [id number] [place] [address]- 0051 Jul, [facility] [place] [facility] [address] [id number] [place] [address] Jan, [facility] [place] [facility] [address] [id number] [place] [address] Jun[facility] [place] [address] [facility] [id number] [address] Mar, [facility] [place] [address] [id number] [address] Jan, [facility] [place] [address] [id number] [address] December, [facility] [place] [address] [id number], [place] [address] Oct, [facility] [place] [address] [facility] [id number], [place] [address] Sep, IMMUNIZATIONS No Known Immunizations SOCIAL HISTORY Never Assessed REASON FOR VISIT nephro labs PLAN OF CARE VITAL SIGNS MEDICATIONS Unknown [...] 12/2016 Hospitalization History surgeries Hospitalization History [facility] ED- Back/Left Side Pain 06/06/2017 Hospitalization History [facility] ED- Congested, cough and SOB 11/07/2017
--- OUTSIDE RECORDS SUMMARY | 2018-04-20 16:04 | XMS REPORT ---
Author Author NISHI PALENCIA Organization [facility] Address [address] [place] [address] Care Team Providers Care Fire Crew Specialist Name Role Phone SLIMENISHI Unavailable PROBLEMS Type Condition ICD9-CM Code [id number] Code Onset Dates Condition Status SNOMED Code Problem Lumbago with sciatica, left side M54.42 Active 030801999 Problem Type 2 diabetes mellitus without complications E11.9 Active 485999357 Problem manager 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 Active 353660754 Problem Type 2 diabetes mellitus with diabetic neuropathy, unspecified E11.40 Active 50321329 Problem Diabetes type 2, controlled E11.9 Active 98400104 Problem Type 2 diabetes mellitus with hyperglycemia E11.65 Active 575132653 Problem Controlled type 2 diabetes mellitus without complication, without long -term current use of insulin E11.9 Active 024137548 Problem Chronic fatigue R53.82 Active 35477481 Problem Mood disorder F39 Active 37960570 Problem Slow transit constipation K59.01 Active 61387701 Problem Other chronic pain G89.29 Active 44602141 Problem Diabetic mononeuropathy associated with type 2 diabetes mellitus E11.41 Active 123485536 Problem Neuropathy G62.9 Active 070821562 ALLERGIES No Information ENCOUNTERS Encounter Location Date Diagnosis [place] [id number] [address] Mar, [place] [id number] [address] Feb, Seborrheic keratoses L82.1 and Type 2 diabetes mellitus with diabetic neuropathy, unspecified E11.40 [place] [id number] [place] [address] 71865- 8351 Feb, Type 2 diabetes mellitus with diabetic neuropathy, unspecified E11.40 ; Renal insufficiency N28.9 and Chronic fatigue R53.82 [place] [id number] [address] 28 Jan, 2018 Pneumonia of both lower lobes due to infectious organism J18.1 and Mood disorder F39 [facility] [id number] [place] [address] 94048- 8542 Jan, BMI 40.0-44.9, adult Z68.41 [place] [id number] [place] [address] 88483- 3169 Jan, [facility] [id number] [place] [address] 86713- 0670 Jan, [facility] [id number] [place] [address] 73380 -6253 Jan, Wheezes R06.2 ; Diabetes type 2, controlled E11.9 and Pneumonia of right lower lobe due to infectious organism J18.1 [place] [id number] [place] [address] 50011- 5464 Jan, Renal insufficiency N28.9 [facility] [id number] [place] [address] 83454- 8863 Jan, Seborrheic keratoses L82.1 [facility] [id number] [place] [address] 13756- 2045 Jan, [facility] [id number] [place] [address] 41961- 0315 Jan, [facility] [id number] [place] [address] 34647- 5381 08 Jan, 2018 Renal insufficiency N28.9 [facility] [id number] [place] [address] 06756- 9655 07 Jan, 2018 [place] [id number] [place] [address] 98080- 6638 04 Jan, 2018 Diabetes type 2, controlled E11.9 ; Mood disorder F39 and BMI 40.0-44.9, adult Z68.41 [facility] [id number] [address] 5252 Jan, BMI 40.0-44.9, adult Z68.41 [facility] [id number] [place] [address]- 5720 December, [facility] [address], [place] [address]- 6866 December, [facility] [id number] [place] [address] 22043- 4439 December, Seborrheic keratoses L82.1 [facility] [address] [place] [address]- 5186 December, Seborrheic keratoses L82.1 [facility] [id number] [place] [address]- 4316 December, [facility] [id number] [place] [address] 71632- 0718 December, [facility] [address], [place] [address]- 3878 December, BMI 40.0-44.9, adult Z68.41 [facility] [address], [place] [address]- 0016 December, [facility] [address], [place] [address]- 3679 December, [facility] [address], [place] [address]- 6549 Nov, [facility] [address], [place] [address]- 8126 Nov, [facility] [address], [place] [address]- 3714 Nov, Seborrheic keratoses L82.1 [facility] [address], [place] [address]- 6476 Nov, Renal insufficiency N28.9 [place] [id number] [place] [address] 28492- 7334 11 Nov, 2017 [place] [id number] [place] [address] 31872- 1301 Nov, [place] [id number] [place] [address] 24753- 1232 Nov, [place] [address] [address]96- 7448 Nov, Type 2 diabetes mellitus with diabetic neuropathy, unspecified E11.40 ; Other chronic pain G89.29 ; Bronchitis J40 ; Renal cyst N28.1 ; Pain of left foot M79.672 and Pain in right foot M79.671 [place] [id number] [place] [address] 68053- 9867 Oct, Type 2 diabetes mellitus without complications E11.9 [place] [id number] [place] [address] 67505- 1418 Oct, SOB (shortness of breath) R06.02 [place] [id number] [place] [address] 80716- 5944 Oct, SOB (shortness of breath) R06.02 [place] [id number] [place] [address] 24191- 0703 Sep, Type 2 diabetes mellitus without complications E11.9 [place] [id number] [place] [address] 21533- 3812 Sep, Left flank pain R10.9 [place] [id number] [place] [address] 06161- 8284 Sep, BMI 40.0-44.9, adult Z68.41 ; Left flank pain R10.9 and Seborrheic keratoses L82.1 [place] [id number] [place] [address] 47994- 3830 Aug, Type 2 diabetes mellitus without complications E11.9 [place] [address], [place] [address]- 3850 Jul, Type 2 diabetes mellitus without complications E11.9 and Abdominal pain, left lower quadrant R10.32 [facility] [address] [id number] [address] Jun, [facility] [address], [place] [address]- 0661 Jun, Type 2 diabetes mellitus without complications E11.9 [facility] [address], [place] [address]- 5256 Jun, Controlled type 2 diabetes mellitus without complication, without long-term current use of insulin E11.9 and Seborrheic keratoses L82.1 [facility] [address], [place] [address] May, Acute back pain M54.9 [facility] [address] [place] [address] 08451- 5303 May, Type 2 diabetes mellitus without complications E11.9 [facility] [address] [place] [address] 81103- 5280 28 Apr, 2017 Diabetes type 2, controlled E11.9 ; Lumbago with sciatica, left side M54.42 and Diabetic mononeuropathy associated with type 2 diabetes mellitus E11.41 [facility] [address], [place] [address]- 1634 Apr, Type 2 diabetes mellitus without complications E11.9 [facility] [address], [place] [address]- 5892 Apr, [facility] [id number] [place] [address] 18951- 4829 Mar, Type 2 diabetes mellitus without complications E11.9 [facility] [address], [place] [address]- 2311 Feb, Controlled type 2 diabetes mellitus without complication, without long-term current use of insulin E11.9 ; Neuropathy G62.9 and Onychomycosis B35.1 [place] [id number] [place] [address] 77910- 2492 Jan, Type 2 diabetes mellitus with diabetic neuropathy, unspecified E11.40 [place] [id number] [place] [address] 84153- 1537 Jan, Type 2 diabetes mellitus with diabetic neuropathy, unspecified E11.40 [place] [id number] [place] [address] 45175- 0325 December, Type 2 diabetes mellitus without complications E11.9 [place] [id number] [place] [address] 20898- 4388 December, Slow transit constipation K59.01 and Pain in right hip M25.551 [place] [id number] [place] [address] 73875- 2543 Nov, Type 2 diabetes mellitus without complications E11.9 [place] [id number] [place] [address] 77928- 9794 Oct, Lumbago with sciatica, left side M54.42 and Other chronic pain G89.29 [place] [id number] [place] [address] 37224- 7826 Sep, Diabetes mellitus E11.9 ; Lumbago with sciatica, left side M54.42 and Type 2 diabetes mellitus without complications E11.9 [place] [address] [place] [address] 13067- 6107 Aug, Type 2 diabetes mellitus without complications E11.9 and manager 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 [facility] [id number] [place] [address] [id number] Aug, Dental examination Z01.20 [facility] [id number] [place] [address] [id number] Aug, Dental examination Z01.20 [facility] [id number] [place] [address] 93047 -2777 Aug, Dental abscess K04.7 [place] [id number] [place] [address] 84376- 0824 Jul, Type 2 diabetes mellitus with hyperglycemia E11.65 and 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 [place] [id number] [place] [address] 65898- 3151 Jul, [place] [address] 76676- 7949 Jul, Type 2 diabetes mellitus with diabetic neuropathy, unspecified E11.40 [place] [id number] [place] [address] 35429- 5001 Jun, Type 2 diabetes mellitus with diabetic neuropathy, unspecified E11.40 and Lumbago with sciatica, left side M54.42 [place] [id number] [place] [address] 30601- 8926 May, Controlled type 2 diabetes mellitus without complication, without long-term current use of insulin E11.9 [place] [id number] [place] [address] 28031- 9573 Apr, Controlled type 2 diabetes mellitus without complication, without long-term current use of insulin E11.9 and Lumbar neuritis M54.16 [place] [id number] [place] [address] 23596- 4579 Mar, [place] [id number] [place] [address] 09639- 7418 Mar, Other chronic pain G89.29 ; Pain in left knee M25.562 ; Sciatica, left side M54.32 ; Pain in left hip M25.552 ; Type 2 diabetes mellitus with hyperglycemia E11.65 ; manager 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 and Mood disorder F39 [place] [id number] [place] [address] 47909- 4783 December, Diabetes type 2, controlled E11.9 [place] [id number] [place] [address] 31016- 9354 December, Diabetes type 2, controlled E11.9 [place] [id number] [place] [address] 89859- 3773 Oct, Shoulder pain, right M25.511 and Knee pain, right M25.561 [place] [id number] [place] [address] 96766- 1182 Oct, Knee pain, left M25.562 [place] [id number] [place] [address] 76277- 0505 Sep, Diabetes mellitus E11.9 and Knee pain M25.569 [place] [id number] [place] [address] 37590- 4311 Sep, [place] [id number] [place] [address] 96122- 0144 Jun, Type 2 diabetes mellitus with diabetic neuropathy, unspecified E11.40 and Type 2 diabetes mellitus with hyperglycemia E11.65 [place] [id number] [place] [address] 21732- 9020 May, Diabetes mellitus E11.9 [place] [id number] [place] [address] 02546- 3029 May, Diabetes mellitus E11.9 and Lumbago with sciatica, left side M54.42 [place] [id number] [place] [address] 40885- 5135 Jan, Osteoarthritis of knees, bilateral 715.96 [place] [id number] [place] [address] 42599- 6996 December, [place] [id number] [place] [address] 42923- 8578 December, Knee pain, bilateral 719.46 [place] [id number] [place] [address] 35105- 3678 Nov, Knee pain, bilateral 719.46 [place] [id number] [place] [address] 40489- 3998 14 Nov, 2014 [facility] [place] [facility] [address] [id number] [place] [address]- 9951 13 Nov, 2014 [facility] [place] [facility] [address] [id number] [place] [address]- 0251 13 Oct, 2014 [facility] [place] [facility] [address] [id number] [place] [address]- 4148 Oct, [facility] [place] [facility] [address] [id number] [place] [address]- 0616 Aug, [facility] [place] [facility] [address] [id number] [place] [address]- 9430 Aug, [facility] [place] [facility] [address] [id number] [place] [address]- 6152 17 Jul, 2014 [facility] [place] [facility] [address] [facility] [id number] [place] [address]- 1634 17 Jul, 2014 [facility] [place] [facility] [address] [id number] [place] [address]- 8690 17 Jun, 2014 [facility] [place] [facility] [address] [facility] [id number] [place] [address]- 5554 17 Jun, 2014 [facility] [place] [facility] [address] [facility] [id number] [place] [address]- 0076 15 May, 2014 [facility] [place] [facility] [address] [id number], [place] [address]- 8389 15 May, 2014 [facility] [place] [facility] [address] [id number], [place] [address]- 4828 15 Apr, 2014 [facility] [place] [facility] [address] [id number] [place] [address]- 9048 15 Apr, 2014 [facility] [place] [facility] [address] [facility] [id number] [place] [address]- 1901 08 Apr, 2014 [facility] [place] [facility] [address] [facility] [id number] [place] [address]- 5019 08 Apr, 2014 [facility] [place] [facility] [address] [id number] [place] [address]- 8766 Feb, [facility] [place] [facility] [address] [id number] [place] [address]- 0371 Feb, [facility] [place] [facility] [address] [id number] [place] [address]- 6776 December, [facility] [place] [facility] [address] [id number] [place] [address]- 1605 December, [facility] [place] [facility] [address] [id number] [place] [address]- 3386 December, [facility] [place] [facility] [address] [id number] [place] [address]- 7006 December, [facility] [place] [facility] [address] [id number] [place] [address]- 7856 Nov, [facility] [place] [facility] [address] [id number] [place] [address]- 9786 Nov, [facility] [place] [facility] [address] [id number] [place] [address]- 2925 Oct, [facility] [place] [facility] [address] [id number] [place] [address]- 8462 Oct, [facility] [place] [facility] [address] [id number] [place] 8713 Aug, [facility] [place] [facility] [address] [id number] [place] [address]- 3529 Aug, [facility] [place] [facility] [address] [id number] [place] [address]- 6003 Jul, [facility] [place] [facility] [address] [id number] [place] [address]- 9486 Jul, [facility] [place] [facility] [address] [id number] [place] [address]- 2546 May, [facility] [place] [facility] [address] [id number] [place] [address]- 9408 Jan, [facility] [place] [facility] [address] [id number] [place] [address]- 4131 10 Jan, 2013 [facility] [place] [facility] [address] [id number] [place] [address]- 4546 December, [facility] [place] [facility] [address] [id number] [place] [address]- 9483 Nov, [facility] [place] [facility] [address] [id number] [place] [address]- 3259 25 Oct, 2012 [facility] [place] [facility] [address] [id number] [place] [address]- 1675 19 Oct, 2012 [facility] [place] [facility] [address] [id number] [place] [address]- 5651 14 Oct, 2012 [facility] [place] [facility] [address] [id number] [place] [address]- 4205 Oct, [facility] [place] [facility] [address] [id number] [place] [address]- 5201 07 Oct, 2012 [facility] [place] [facility] [address] [id number] [place] [address]- 1176 07 Oct, 2012 [facility] [place] [facility] [address] [facility] [id number] [place] [address]- 7108 07 Sep, 2012 [facility] [place] [facility] [address] [id number] [place] [address]- 9319 Jul, [facility] [place] [facility] [address] [id number] [place] [address]- 6793 Jul, [facility] [place] [facility] [address] [id number] [place] [address]- 7509 Jul, [facility] [place] [facility] [address] [id number] [place] [address]- 0046 Jun, [facility] [place] [facility] [address] [id number] [place] [address]- 1944 Jun, [facility] [place] [facility] [address] [id number] [place] [address]- 1284 Jun, [facility] [address] [id number] [place] [address]- 6922 Jun, [facility] [place] [facility] [address] [id number] [place] [address]- 7966 Mar, [facility] [place] [facility] [address] [id number] [place] [address]- 5716 Mar, [facility] [place] [facility] [address] [id number] [place] [address]- 6221 Feb, [facility] [place] [facility] [address] [id number] [place] [address]- 5250 Feb, [facility] [place] [facility] [address] [id number] [place] [address]- 8516 December, [facility] [address] [id number] [place] [address]- 9726 December, [facility] [place] [facility] [address] [id number] [place] [address]- 9718 Nov, [facility] [place] [facility] [address] [id number] [place] [address]- 9384 Oct, [facility] [place] [facility] [address] [id number] [place] [address]- 6375 Oct, [facility] [place] [facility] [address] [id number] [place] [address]- 3300 Jul, [facility] [place] [facility] [address] [id number] [place] [address]- 2546 Sep, [facility] [place] [facility] [address] [id number] [place] [address]- 7496 Jul, [facility] [place] [facility] [address] [id number] [place] [address]- 2546 Jan, [facility] [place] [facility] [address] [id number] [place] [address]- 3264 Jun, [facility] [address] [facility] [id number], [place] [address]- 2546 Mar, [facility] [id number] [address] 2546 Jan, [facility] [id number], [place] [address]- 2546 December, [facility] [address] [address]- 2546 Oct, [facility] [address] [facility] [id number][place] [address]- 2236 Sep, IMMUNIZATIONS No Known Immunizations SOCIAL HISTORY Never Assessed REASON FOR VISIT BP Reduction Challenge- Initial Call PLAN OF CARE VITAL SIGNS MEDICATIONS Unknown [...] rods 12/2016 Hospitalization History surgeries Hospitalization History [facility] ED- Back/Left Side Pain 06/06/2017 Hospitalization History [facility] ED- Congested, cough and SOB 11/07/2017
--- OUTSIDE RECORDS SUMMARY | 2018-04-20 16:04 | XMS REPORT ---
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 Active 382951926 Problem Type 2 diabetes mellitus with diabetic neuropathy, unspecified E11.40 Active 27044457 Problem Diabetes type 2, controlled E11.9 Active 97329634 Problem Type 2 diabetes mellitus with hyperglycemia E11.65 Active 492504595 Problem Controlled type 2 diabetes mellitus without complication, without long -term current use of insulin E11.9 Active 541067996 Problem Chronic fatigue R53.82 Active 14493004 Problem Mood disorder F39 Active 91373670 Problem Slow transit constipation K59.01 Active 79055793 Problem Other chronic pain G89.29 Active 86540233 Problem Diabetic mononeuropathy associated with type 2 diabetes mellitus E11.41 Active 298004590 Problem Neuropathy G62.9 Active 292447459 ALLERGIES No Information ENCOUNTERS Encounter Location Date Diagnosis [place] [id number], [place] [address] Mar, [place] [id number], [place] [address] Feb, Seborrheic keratoses L82.1 and Type 2 diabetes mellitus with diabetic neuropathy, unspecified E11.40 [place] [facility] [id number] [place] [address] 65032- 8291 Feb, Type 2 diabetes mellitus with diabetic neuropathy, unspecified E11.40 ; Renal insufficiency N28.9 and Chronic fatigue R53.82 [place] [facility] [id number], [place] [address] 28 Jan, 2018 Pneumonia of both lower lobes due to infectious organism J18.1 and Mood disorder F39 [facility] [id number] [place] [address] 72655- 0295 Jan, BMI 40.0-44.9, adult Z68.41 [place] [id number] [place] [address] 02134- 5596 Jan, [facility] [id number] [place] [address] 78446- 0371 Jan, [facility] [id number] [place] [address] 91524 -7946 Jan, Wheezes R06.2 ; Diabetes type 2, controlled E11.9 and Pneumonia of right lower lobe due to infectious organism J18.1 [place] [id number] [place] [address] 53538- 5272 Jan, Renal insufficiency N28.9 [facility] [id number] [place] [address] 57293- 9939 Jan, Seborrheic keratoses L82.1 [facility] [id number] [place] [address] 59849- 2987 Jan, [facility] [id number] [place] [address] 44875- 3121 Jan, [facility] [id number] [place] [address] 40041- 2988 08 Jan, 2018 Renal insufficiency N28.9 [facility] [id number] [place] [address] 43171- 5915 07 Jan, 2018 [place] [id number] [place] [address] 16689- 2367 04 Jan, 2018 Diabetes type 2, controlled E11.9 ; Mood disorder F39 and BMI 40.0-44.9, adult Z68.41 [facility] [id number], [place] [address]- 3708 Jan, BMI 40.0-44.9, adult Z68.41 [facility] [id number] [place] [address]- 4794 December, [facility] [address], [place] [address] 6776 December, [facility] [id number] [place] [address] 60586- 2932 December, Seborrheic keratoses L82.1 [facility] [address] [address]- 8536 December, Seborrheic keratoses L82.1 [facility] [id number] [address]- 9796 December, [facility] [id number] [place] [address] 54282- 4802 December, [facility] [address], [place] [address]- 2037 December, BMI 40.0-44.9, adult Z68.41 [facility] [address], [place] [address]- 3881 December, [facility] [address], [place] [address]- 9714 December, [facility] [address], [place] [address]- 1868 Nov, [facility] [address], [place] [address]- 5219 Nov, [facility] [address], [place] [address]- 0036 Nov, Seborrheic keratoses L82.1 [facility] [address], [place] [address]- 1778 Nov, Renal insufficiency N28.9 [facility] [id number] [place] [address] 45631- 6163 11 Nov, 2017 [place] [id number] [place] [address] 22166- 8627 Nov, [place] [id number] [place] [address] 00823- 8326 Nov, [facility] [address] [address]- 1253 Nov, Type 2 diabetes mellitus with diabetic neuropathy, unspecified E11.40 ; Other chronic pain G89.29 ; Bronchitis J40 ; Renal cyst N28.1 ; Pain of left foot M79.672 and Pain in right foot M79.671 [place] [id number] [place] [address] 53372- 0143 Oct, Type 2 diabetes mellitus without complications E11.9 [place] [id number] [place] [address] 19885- 4035 Oct, SOB (shortness of breath) R06.02 [place] [id number] [place] [address] 38818- 8375 Oct, SOB (shortness of breath) R06.02 [place] [id number] [place] [address] 56184- 7513 Sep, Type 2 diabetes mellitus without complications E11.9 [place] [id number] [place] [address] 24730- 9272 Sep, Left flank pain R10.9 [place] [id number] [place] [address] 58147- 9376 Sep, BMI 40.0-44.9, adult Z68.41 ; Left flank pain R10.9 and Seborrheic keratoses L82.1 [place] [id number] [place] [address] 08444- 0148 Aug, Type 2 diabetes mellitus without complications E11.9 [place] [address], [place] [address]- 3252 Jul, Type 2 diabetes mellitus without complications E11.9 and Abdominal pain, left lower quadrant R10.32 [facility] [address] [id number] [address] Jun, [facility] [address], [place] [address]- 2562 Jun, Type 2 diabetes mellitus without complications E11.9 [facility] [address], [place] [address]- 5700 Jun, Controlled type 2 diabetes mellitus without complication, without long-term current use of insulin E11.9 and Seborrheic keratoses L82.1 [facility] [address], [place] [address]14 May, Acute back pain M54.9 [facility] [id number] [place] [address] 07103- 2814 May, Type 2 diabetes mellitus without complications E11.9 [facility] [address] [place] [address] 68201- 9085 28 Apr, 2017 Diabetes type 2, controlled E11.9 ; Lumbago with sciatica, left side M54.42 and Diabetic mononeuropathy associated with type 2 diabetes mellitus E11.41 [facility] [address], [place] [address]- 1720 Apr, Type 2 diabetes mellitus without complications E11.9 [facility] [address], [place] [address]- 7892 Apr, [facility] [id number] [place] [address] 81593- 2546 Mar, Type 2 diabetes mellitus without complications E11.9 [facility] [address], [place] [address]- 4442 Feb, Controlled type 2 diabetes mellitus without complication, without long-term current use of insulin E11.9 ; Neuropathy G62.9 and Onychomycosis B35.1 [place] [id number] [place] [address] 97837- 5706 Jan, Type 2 diabetes mellitus with diabetic neuropathy, unspecified E11.40 [place] [id number] [place] [address] 46352- 7663 Jan, Type 2 diabetes mellitus with diabetic neuropathy, unspecified E11.40 [place] [id number] [place] [address] 97010- 1259 December, Type 2 diabetes mellitus without complications E11.9 [place] [id number] [place] [address] 34149- 4172 December, Slow transit constipation K59.01 and Pain in right hip M25.551 [place] [id number] [place] [address] 01256- 5903 Nov, Type 2 diabetes mellitus without complications E11.9 [place] [id number] [place] [address] 48729- 0788 Oct, Lumbago with sciatica, left side M54.42 and Other chronic pain G89.29 [place] [id number] [place] [address] 46552- 7177 Sep, Diabetes mellitus E11.9 ; Lumbago with sciatica, left side M54.42 and Type 2 diabetes mellitus without complications E11.9 [place] [address] [place] [address] 61600- 5293 Aug, Type 2 diabetes mellitus without complications E11.9 and 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 [facility] [id number] [place] [address] [id number] Aug, Dental examination Z01.20 [facility] [id number] [place] [address] [id number] Aug, Dental examination Z01.20 [facility] [id number] [place] [address] 09251 -5785 Aug, Dental abscess K04.7 [place] [id number] [place] [address] 25608- 9960 Jul, Type 2 diabetes mellitus with hyperglycemia E11.65 and [facility] 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 [place] [id number] [place] [address] 01807- 2343 Jul, [place] [address] 27307- 1286 Jul, Type 2 diabetes mellitus with diabetic neuropathy, unspecified E11.40 [place] [id number] [place] [address] 88880- 7447 Jun, Type 2 diabetes mellitus with diabetic neuropathy, unspecified E11.40 and Lumbago with sciatica, left side M54.42 [place] [id number] [place] [address] 87131- 8094 May, Controlled type 2 diabetes mellitus without complication, without long-term current use of insulin E11.9 [place] [id number] [place] [address] 22156- 8175 Apr, Controlled type 2 diabetes mellitus without complication, without long-term current use of insulin E11.9 and Lumbar neuritis M54.16 [place] [id number] [place] [address] 38464- 6214 Mar, [place] [id number] [place] [address] 04395- 3809 Mar, Other chronic pain G89.29 ; Pain in left knee M25.562 ; Sciatica, left side M54.32 ; Pain in left hip M25.552 ; Type 2 diabetes mellitus with hyperglycemia E11.65 ; 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 and Mood disorder F39 [place] [id number] [place] [address] 73433- 0607 December, Diabetes type 2, controlled E11.9 [place] [id number] [place] [address] 02349- 1255 December, Diabetes type 2, controlled E11.9 [place] [id number] [place] [address] 22004- 0594 Oct, Shoulder pain, right M25.511 and Knee pain, right M25.561 [place] [id number] [place] [address] 72455- 0476 Oct, Knee pain, left M25.562 [place] [id number] [place] [address] 42937- 8100 Sep, Diabetes mellitus E11.9 and Knee pain M25.569 [place] [id number] [place] [address] 40934- 0718 Sep, [place] [id number] [place] [address] 16562- 8289 Jun, Type 2 diabetes mellitus with diabetic neuropathy, unspecified E11.40 and Type 2 diabetes mellitus with hyperglycemia E11.65 [place] [id number] [place] [address] 41265- 6465 May, Diabetes mellitus E11.9 [place] [id number] [place] [address] 82449- 9506 May, Diabetes mellitus E11.9 and Lumbago with sciatica, left side M54.42 [place] [id number] [place] [address] 19193- 3465 Jan, Osteoarthritis of knees, bilateral 715.96 [place] [id number] [place] [address] 35522- 7835 December, [place] [id number] [place] [address] 20979- 3777 December, Knee pain, bilateral 719.46 [place] [id number] [place] [address] 13918- 4588 Nov, Knee pain, bilateral 719.46 [place] [id number] [place] [address] 87423- 0730 14 Nov, 2014 [facility] [place] [facility] [address] [id number] [place] [address]- 8536 13 Nov, 2014 [facility] [place] [facility] [address] [id number] [place] [address]- 4059 13 Oct, 2014 [facility] [place] [facility] [address] [id number] [place] [address]- 4358 Oct, [facility] [place] [facility] [address] [id number] [place] [address]- 8191 Aug, [facility] [place] [facility] [address] [id number] [place] [address]- 3077 Aug, [facility] [place] [facility] [address] [id number] [place] [address]- 2467 17 Jul, 2014 [facility] [place] [facility] [address] [facility] [id number] [place] [address]- 5062 17 Jul, 2014 [facility] [place] [facility] [address] [id number] [place] [address]- 1036 17 Jun, 2014 [facility] [place] [facility] [address] [facility] [id number] [place] [address]- 7926 17 Jun, 2014 [facility] [place] [facility] [address] [facility] [id number] [place] [address]- 6428 15 May, 2014 [facility] [place] [facility] [address] [id number] [address]- 6444 15 May, 2014 [facility] [place] [facility] [address] [id number], [place] [address]- 0554 15 Apr, 2014 [facility] [place] [facility] [address] [id number] [place] [address]- 1041 15 Apr, 2014 [facility] [place] [facility] [address] [facility] [id number] [place] [address]- 8348 08 Apr, 2014 [facility] [place] [facility] [address] [facility] [id number] [place] [address]- 2319 08 Apr, 2014 [facility] [place] [facility] [address] [id number] [place] [address]- 3146 Feb, [facility] [place] [facility] [address] [id number] [place] [address]- 5703 Feb, [facility] [place] [facility] [address] [id number] [place] [address]- 5276 December, [facility] [place] [facility] [address] [id number] [place] [address]- 1361 December, [facility] [place] [facility] [address] [id number] [place] [address]- 6761 December, [facility] [place] [facility] [address] [id number] [place] [address]- 2249 December, [facility] [place] [facility] [address] [id number] [place] [address]- 5407 Nov, [facility] [place] [facility] [address] [id number] [place] [address]- 4523 Nov, [facility] [place] [facility] [address] [id number] [place] [address]- 6008 Oct, [facility] [place] [facility] [address] [id number] [place] [address]- 0852 Oct, [facility] [place] [facility] [address] [id number] [place] 6415 Aug, [facility] [place] [facility] [address] [id number] [place] [address]- 6270 Aug, [facility] [place] [facility] [address] [id number] [place] [address]- 4998 Jul, [facility] [place] [facility] [address] [id number] [place] [address]- 8666 Jul, [facility] [place] [facility] [address] [id number] [place] [address]- 2546 May, [facility] [place] [facility] [address] [id number] [place] [address]- 9718 Jan, [facility] [place] [facility] [address] [id number] [place] [address]- 8939 10 Jan, 2013 [facility] [place] [facility] [address] [id number] [place] [address]- 8254 December, [facility] [place] [facility] [address] [id number] [place] [address]- 0294 Nov, [facility] [place] [facility] [address] [id number] [place] [address]- 7700 25 Oct, 2012 [facility] [place] [facility] [address] [id number] [place] [address]- 4565 19 Oct, 2012 [facility] [place] [facility] [address] [id number] [place] [address]- 8777 14 Oct, 2012 [facility] [place] [facility] [address] [id number] [place] [address]- 6236 Oct, [facility] [place] [facility] [address] [id number] [place] [address]- 6650 07 Oct, 2012 [facility] [place] [facility] [address] [id number] [place] [address]- 7892 07 Oct, 2012 [facility] [place] [facility] [address] [facility] [id number] [place] [address]- 9590 07 Sep, 2012 [facility] [place] [facility] [address] [id number] [place] [address]- 6650 Jul, [facility] [place] [facility] [address] [id number] [place] [address]- 8261 Jul, [facility] [place] [facility] [address] [id number] [place] [address]- 3554 Jul, [facility] [place] [facility] [address] [id number] [place] [address]- 4597 Jun, [facility] [place] [facility] [address] [id number] [place] [address]- 1724 Jun, [facility] [place] [facility] [address] [id number] [place] [address]- 0226 Jun, [facility] [address] [id number] [place] [address]- 7219 Jun, [facility] [place] [facility] [address] [id number] [place] [address]- 6066 Mar, [facility] [place] [facility] [address] [id number] [place] [address]- 0396 Mar, [facility] [place] [facility] [address] [id number] [place] [address]- 6621 Feb, [facility] [place] [facility] [address] [id number] [place] [address]- 7550 Feb, [facility] [place] [facility] [address] [id number] [place] [address]- 5316 December, [facility] [address] [id number] [place] [address]- 2386 December, [facility] [place] [facility] [address] [id number] [place] [address]- 0913 Nov, [facility] [place] [facility] [address] [id number] [place] [address]- 8637 Oct, [facility] [place] [facility] [address] [id number] [place] [address]- 0138 Oct, [facility] [place] [facility] [address] [id number] [place] [address]- 2533 Jul, [facility] [place] [facility] [address] [id number] [place] [address]- 2546 Sep, [facility] [place] [facility] [address] [id number] [place] [address]- 1753 Jul, [facility] [place] [facility] [address] [id number] [place] [address]- 2546 Jan, [facility] [place] [facility] [address] [id number] [place] [address]- 9726 Jun, [facility] [address] [facility] [id number], [place] [address]- 2546 Mar, [facility] [id number] [address] 2546 Jan, [facility] [id number] [address]- 2546 December, [facility] [id number], [place] [address]- 2546 Oct, [facility] [address] [facility] [id number], [place] [address]- 8346 Sep, IMMUNIZATIONS No Known Immunizations SOCIAL HISTORY Never Assessed REASON FOR VISIT BP Reduction Challenge Initial Visit PLAN OF CARE VITAL SIGNS Height 67 in 2017-11-17 Blood pressure systolic 154 mmHg 2017-11-17 Blood pressure diastolic 92 mmHg 2017-11-17 MEDICATIONS Unknown Medications RESULTS No Results PROCEDURES [...] rods 12/2016 Hospitalization History surgeries Hospitalization History [facility] ED- Back/Left Side Pain 06/06/2017 Hospitalization History [facility] ED- Congested, cough and SOB 11/07/2017
--- OUTSIDE RECORDS SUMMARY | 2018-04-20 16:05 | XMS REPORT ---
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 Active 367200967 Problem Type 2 diabetes mellitus with diabetic neuropathy, unspecified E11.40 Active 26810977 Problem Diabetes type 2, controlled E11.9 Active 02292143 Problem Type 2 diabetes mellitus with hyperglycemia E11.65 Active 276169732 Problem Controlled type 2 diabetes mellitus without complication, without long -term current use of insulin E11.9 Active 251525037 Problem Chronic fatigue R53.82 Active 25006561 Problem Mood disorder F39 Active 64784521 Problem Slow transit constipation K59.01 Active 06301087 Problem Other chronic pain G89.29 Active 25263194 Problem Diabetic mononeuropathy associated with type 2 diabetes mellitus E11.41 Active 712525607 Problem Neuropathy G62.9 Active 036832401 ALLERGIES No Information ENCOUNTERS Encounter Location Date Diagnosis [place] [id number] [address] Mar, [place] [id number] [address] Feb, Seborrheic keratoses L82.1 and Type 2 diabetes mellitus with diabetic neuropathy, unspecified E11.40 [place] [id number] [place] [address] 88221- 5437 Feb, Type 2 diabetes mellitus with diabetic neuropathy, unspecified E11.40 ; Renal insufficiency N28.9 and Chronic fatigue R53.82 [place] [id number], [place] [address] 28 Jan, 2018 Pneumonia of both lower lobes due to infectious organism J18.1 and Mood disorder F39 [facility] [id number] [place] [address] 37601- 6838 Jan, BMI 40.0-44.9, adult Z68.41 [place] [id number] [place] [address] 55108- 6823 Jan, [facility] [id number] [place] [address] 81552- 4663 Jan, [facility] [id number] [place] [address] 97138 -7398 Jan, Wheezes R06.2 ; Diabetes type 2, controlled E11.9 and Pneumonia of right lower lobe due to infectious organism J18.1 [place] [id number] [place] [address] 50522- 1392 Jan, Renal insufficiency N28.9 [facility] [id number] [place] [address] 75387- 6579 Jan, Seborrheic keratoses L82.1 [facility] [id number] [place] [address] 06691- 0959 Jan, [facility] [address] [place] [address] 86969- 4513 Jan, [facility] [id number] [place] [address] 82455- 6684 08 Jan, 2018 Renal insufficiency N28.9 [facility] [id number] [place] [address] 42231- 9910 07 Jan, 2018 [place] [id number] [place] [address] 50962- 9841 04 Jan, 2018 Diabetes type 2, controlled E11.9 ; Mood disorder F39 and BMI 40.0-44.9, adult Z68.41 [facility] [id number], [place] [address]- 3769 Jan, BMI 40.0-44.9, adult Z68.41 [facility] [id number] [place] [address]- 9655 December, [facility] [address], [place] [address] 9156 December, [facility] [id number] [place] [address] 47839- 7160 December, Seborrheic keratoses L82.1 [facility] [address] [place] [address] December, Seborrheic keratoses L82.1 [facility] [id number] [place] [address]- 3966 December, [facility] [id number] [place] [address] 95469- 6383 December, [facility] [address], [place] [address]- 0964 December, BMI 40.0-44.9, adult Z68.41 [facility] [address], [place] [address]- 4306 December, [facility] [address], [place] [address]- 4723 December, [facility] [address], [place] [address]- 5605 Nov, [facility] [address], [place] [address]- 1374 Nov, [facility] [address], [place] [address]- 3441 Nov, Seborrheic keratoses L82.1 [facility] [address], [place] [address]- 0701 Nov, Renal insufficiency N28.9 [place] [id number] [place] [address] 99814- 5484 11 Nov, 2017 [place] [id number] [place] [address] 52583- 8058 Nov, [place] [id number] [place] [address] 29206- 9239 Nov, [place] [address] [address]- 6374 Nov, Type 2 diabetes mellitus with diabetic neuropathy, unspecified E11.40 ; Other chronic pain G89.29 ; Bronchitis J40 ; Renal cyst N28.1 ; Pain of left foot M79.672 and Pain in right foot M79.671 [place] [id number] [place] [address] 31908- 9848 Oct, Type 2 diabetes mellitus without complications E11.9 [place] [id number] [place] [address] 59080- 6721 Oct, SOB (shortness of breath) R06.02 [place] [id number] [place] [address] 19815- 7451 Oct, SOB (shortness of breath) R06.02 [place] [id number] [place] [address] 91482- 5562 Sep, Type 2 diabetes mellitus without complications E11.9 [place] [id number] [place] [address] 87171- 6308 Sep, Left flank pain R10.9 [place] [id number] [place] [address] 46799- 3290 Sep, BMI 40.0-44.9, adult Z68.41 ; Left flank pain R10.9 and Seborrheic keratoses L82.1 [place] [id number] [place] [address] 18573- 7204 Aug, Type 2 diabetes mellitus without complications E11.9 [place] [address], [place] [address]- 6815 Jul, Type 2 diabetes mellitus without complications E11.9 and Abdominal pain, left lower quadrant R10.32 [facility] [address] [id number] [address] Jun, [facility] [address], [place] [address]- 2755 Jun, Type 2 diabetes mellitus without complications E11.9 [facility] [address], [place] [address]- 5174 Jun, Controlled type 2 diabetes mellitus without complication, without long-term current use of insulin E11.9 and Seborrheic keratoses L82.1 [facility] [address], [place] [address] May, Acute back pain M54.9 [facility] [address] [place] [address] 03994- 6458 May, Type 2 diabetes mellitus without complications E11.9 [facility] [address] [place] [address] 92000- 3863 28 Apr, 2017 Diabetes type 2, controlled E11.9 ; Lumbago with sciatica, left side M54.42 and Diabetic mononeuropathy associated with type 2 diabetes mellitus E11.41 [facility] [address], [place] [address]- 4083 Apr, Type 2 diabetes mellitus without complications E11.9 [facility] [address], [place] [address]- 5822 Apr, [facility] [id number] [place] [address] 87939- 0935 Mar, Type 2 diabetes mellitus without complications E11.9 [facility] [address], [place] [address]- 9066 Feb, Controlled type 2 diabetes mellitus without complication, without long-term current use of insulin E11.9 ; Neuropathy G62.9 and Onychomycosis B35.1 [place] [id number] [place] [address] 38289- 9557 Jan, Type 2 diabetes mellitus with diabetic neuropathy, unspecified E11.40 [place] [id number] [place] [address] 59549- 4811 Jan, Type 2 diabetes mellitus with diabetic neuropathy, unspecified E11.40 [place] [id number] [place] [address] 54118- 2642 December, Type 2 diabetes mellitus without complications E11.9 [place] [id number] [place] [address] 85056- 7485 December, Slow transit constipation K59.01 and Pain in right hip M25.551 [place] [id number] [place] [address] 35122- 5938 Nov, Type 2 diabetes mellitus without complications E11.9 [place] [id number] [place] [address] 91978- 5459 Oct, Lumbago with sciatica, left side M54.42 and Other chronic pain G89.29 [place] [address] [place] [address] 78758- 3635 Sep, Diabetes mellitus E11.9 ; Lumbago with sciatica, left side M54.42 and Type 2 diabetes mellitus without complications E11.9 [place] [address] [place] [address] 73506- 0841 Aug, Type 2 diabetes mellitus without complications E11.9 and terminal clerk 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 [facility] [id number] [place] [address] [id number] Aug, Dental examination Z01.20 [facility] [id number] [place] [address] [id number] Aug, Dental examination Z01.20 [facility] [id number] [place] [address] 90998 -3451 Aug, Dental abscess K04.7 [place] [id number] [place] [address] 24450- 8019 Jul, Type 2 diabetes mellitus with hyperglycemia E11.65 and skilled nursing 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 [place] [id number] [place] [address] 85655- 5668 Jul, [place] [address] 58198- 6553 Jul, Type 2 diabetes mellitus with diabetic neuropathy, unspecified E11.40 [place] [id number] [place] [address] 91932- 7933 Jun, Type 2 diabetes mellitus with diabetic neuropathy, unspecified E11.40 and Lumbago with sciatica, left side M54.42 [place] [address] [place] [address] 85815- 4527 May, Controlled type 2 diabetes mellitus without complication, without long-term current use of insulin E11.9 [place] [address] [place] [address] 30382- 3662 Apr, Controlled type 2 diabetes mellitus without complication, without long-term current use of insulin E11.9 and Lumbar neuritis M54.16 [place] [address] [place] [address] 89101- 4189 Mar, [place] [address] [place] [address] 45826- 1607 Mar, Other chronic pain G89.29 ; Pain in left knee M25.562 ; Sciatica, left side M54.32 ; Pain in left hip M25.552 ; Type 2 diabetes mellitus with hyperglycemia E11.65 ; terminal clerk 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 and Mood disorder F39 [place] [id number] [place] [address] 18383- 2308 December, Diabetes type 2, controlled E11.9 [place] [id number] [place] [address] 07202- 2993 December, Diabetes type 2, controlled E11.9 [place] [address] [place] [address] 41658- 3956 Oct, Shoulder pain, right M25.511 and Knee pain, right M25.561 [place] [address] [place] [address] 43819- 1007 Oct, Knee pain, left M25.562 [place] [address] [place] [address] 84522- 1029 Sep, Diabetes mellitus E11.9 and Knee pain M25.569 [place] [address] [place] [address] 92735- 7798 Sep, [place] [address] [place] [address] 01853- 7777 Jun, Type 2 diabetes mellitus with diabetic neuropathy, unspecified E11.40 and Type 2 diabetes mellitus with hyperglycemia E11.65 [place] [address] [place] [address] 99623- 8611 May, Diabetes mellitus E11.9 [place] [address] [place] [address] 89285- 5722 May, Diabetes mellitus E11.9 and Lumbago with sciatica, left side M54.42 [place] [address] [place] [address] 02977- 2211 Jan, Osteoarthritis of knees, bilateral 715.96 [place] [id number] [place] [address] 20994- 4645 December, [place] [id number] [place] [address] 42058- 7731 December, Knee pain, bilateral 719.46 [place] [id number] [place] [address] 95679- 7342 Nov, Knee pain, bilateral 719.46 [place] [id number] [place] [address] 04677- 5979 14 Nov, 2014 [facility] [place] [facility] [address] [id number] [place] [address]- 5031 13 Nov, 2014 [facility] [place] [facility] [address] [id number] [place] [address]- 1032 13 Oct, 2014 [facility] [place] [facility] [address] [id number] [place] [address]- 9405 Oct, [facility] [place] [facility] [address] [id number] [place] [address]- 6837 Aug, [facility] [place] [facility] [address] [id number] [place] [address]- 7210 Aug, [facility] [place] [facility] [address] [id number] [place] [address]- 4684 17 Jul, 2014 [facility] [place] [facility] [address] [facility] [id number] [place] [address]- 1735 17 Jul, 2014 [facility] [place] [facility] [address] [id number] [place] [address]- 1896 17 Jun, 2014 [facility] [place] [facility] [address] [facility] [id number] [place] [address]- 3815 17 Jun, 2014 [facility] [place] [facility] [address] [facility] [id number] [place] [address]- 5461 15 May, 2014 [facility] [place] [facility] [address] [id number], [place] [address]- 7397 15 May, 2014 [facility] [place] [facility] [address] [id number], [place] [address]- 8489 15 Apr, 2014 [facility] [place] [facility] [address] [id number] [place] [address]- 9861 15 Apr, 2014 [facility] [place] [facility] [address] [facility] [id number] [place] [address]- 1912 08 Apr, 2014 [facility] [place] [facility] [address] [facility] [id number] [place] [address]- 3508 08 Apr, 2014 [facility] [place] [facility] [address] [id number] [place] [address]- 0966 Feb, [facility] [place] [facility] [address] [id number] [place] [address]- 7557 Feb, [facility] [place] [facility] [address] [id number] [place] [address]- 3886 December, [facility] [place] [facility] [address] [id number] [place] [address]- 4210 December, [facility] [place] [facility] [address] [id number] [place] [address]- 3625 December, [facility] [place] [facility] [address] [id number] [place] [address]- 9897 December, [facility] [place] [facility] [address] [id number] [place] [address]- 7292 Nov, [facility] [place] [facility] [address] [id number] [place] [address]- 0874 Nov, [facility] [place] [facility] [address] [id number] [place] [address]- 8218 Oct, [facility] [place] [facility] [address] [id number] [place] [address]- 6679 Oct, [facility] [place] [facility] [address] [id number] [place] 8903 Aug, [facility] [place] [facility] [address] [id number] [place] [address]- 2741 Aug, [facility] [place] [facility] [address] [id number] [place] [address]- 6317 Jul, [facility] [place] [facility] [address] [id number] [place] [address]- 5596 Jul, [facility] [place] [facility] [address] [id number] [place] [address]- 2546 May, [facility] [place] [facility] [address] [id number] [place] [address]- 1525 Jan, [facility] [place] [facility] [address] [id number] [place] [address]- 6541 10 Jan, 2013 [facility] [place] [facility] [address] [id number] [place] [address]- 5838 December, [facility] [place] [facility] [address] [id number] [place] [address]- 2131 Nov, [facility] [place] [facility] [address] [id number] [place] [address]- 7241 25 Oct, 2012 [facility] [place] [facility] [address] [id number] [place] [address]- 9559 19 Oct, 2012 [facility] [place] [facility] [address] [id number] [place] [address]- 2489 14 Oct, 2012 [facility] [place] [facility] [address] [id number] [place] [address]- 2573 Oct, [facility] [place] [facility] [address] [id number] [place] [address]- 6385 07 Oct, 2012 [facility] [place] [facility] [address] [id number] [place] [address]- 9499 07 Oct, 2012 [facility] [place] [facility] [address] [facility] [id number] [place] [address]- 2458 07 Sep, 2012 [facility] [place] [facility] [address] [id number] [place] [address]- 2756 Jul, [facility] [place] [facility] [address] [id number] [place] [address]- 9636 Jul, [facility] [place] [facility] [address] [id number] [place] [address]- 7413 Jul, [facility] [place] [facility] [address] [id number] [place] [address]- 0719 Jun, [facility] [place] [facility] [address] [id number] [place] [address]- 3198 Jun, [facility] [place] [facility] [address] [id number] [place] [address]- 9069 Jun, [facility] [address] [id number] [place] [address]- 9111 Jun, [facility] [place] [facility] [address] [id number] [place] [address]- 9936 Mar, [facility] [place] [facility] [address] [id number] [place] [address]- 8966 Mar, [facility] [place] [facility] [address] [id number] [place] [address]- 3092 Feb, [facility] [place] [facility] [address] [id number] [place] [address]- 5996 Feb, [facility] [place] [facility] [address] [id number] [place] [address]- 6626 December, [facility] [address] [id number] [place] [address]- 2176 December, [facility] [place] [facility] [address] [id number] [place] [address]- 6858 Nov, [facility] [place] [facility] [address] [id number] [place] [address]- 1875 Oct, [facility] [place] [facility] [address] [id number] [place] [address]- 4696 Oct, [facility] [place] [facility] [address] [id number] [place] [address]- 5365 Jul, [facility] [place] [facility] [address] [id number] [place] [address]- 2546 Sep, [facility] [place] [facility] [address] [id number] [place] [address]- 0747 Jul, [facility] [place] [facility] [address] [id number] [place] [address]- 2546 Jan, [facility] [place] [facility] [address] [id number] [place] [address]- 2287 Jun, [facility] [address] [facility] [id number], [place] [address]- 2546 Mar, [facility] [id number] [address]- 2546 Jan, [facility] [id number] [address]- 2546 December, [facility] [address], [place] [address]- 2546 Oct, [facility] [address] [facility] [id number], [place] [address]- 2126 Sep, IMMUNIZATIONS No Known Immunizations SOCIAL HISTORY Never Assessed REASON FOR VISIT referral PLAN OF CARE VITAL SIGNS MEDICATIONS Unknown [...]
--- OUTSIDE RECORDS SUMMARY | 2018-04-20 16:05 | XMS REPORT ---
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 Active 041036768 Problem Type 2 diabetes mellitus with diabetic neuropathy, unspecified E11.40 Active 79136441 Problem Diabetes type 2, controlled E11.9 Active 16022076 Problem Type 2 diabetes mellitus with hyperglycemia E11.65 Active 353835666 Problem Controlled type 2 diabetes mellitus without complication, without long -term current use of insulin E11.9 Active 831891270 Problem Chronic fatigue R53.82 Active 70987043 Problem Mood disorder F39 Active 64707234 Problem Slow transit constipation K59.01 Active 47758660 Problem Other chronic pain G89.29 Active 70987751 Problem Diabetic mononeuropathy associated with type 2 diabetes mellitus E11.41 Active 776296137 Problem Neuropathy G62.9 Active 497111878 ALLERGIES No Known Allergies ENCOUNTERS Encounter Location Date Diagnosis [place] [id number] [place] [address] 00131- 6116 Mar, [place] [id number] [place] [address] 32233- 2009 Feb, Seborrheic keratoses L82.1 and Type 2 diabetes mellitus with diabetic neuropathy, unspecified E11.40 [place] [id number] [place] [address] 61798- 5770 Feb, Type 2 diabetes mellitus with diabetic neuropathy, unspecified E11.40 ; Renal insufficiency N28.9 and Chronic fatigue R53.82 [place] [address] [address] 9[address] 28 Jan, 2018 Pneumonia of both lower lobes due to infectious organism J18.1 and Mood disorder F39 [facility] [id number] [place] [address] 37993- 0994 Jan, BMI 40.0-44.9, adult Z68.41 [facility] [id number] [place] [address] 27610- 8033 Jan, [facility] [id number] [place] [address] 06545- 7216 Jan, [facility] [id number] [place] [address] 22265 -4796 Jan, Wheezes R06.2 ; Diabetes type 2, controlled E11.9 and Pneumonia of right lower lobe due to infectious organism J18.1 [place] [id number] [place] [address] 25758- 2795 Jan, Renal insufficiency N28.9 [facility] [id number] [place] [address] 81339- 7862 Jan, Seborrheic keratoses L82.1 [facility] [id number] [place] [address] 89433- 0159 Jan, [facility] [id number] [address] 3010 Jan, [facility] [id number] [place] [address] 35174- 4663 08 Jan, 2018 Renal insufficiency N28.9 [facility] [id number] [place] [address] 60468- 4043 07 Jan, 2018 [facility] [id number] [place] [address] 62876- 1296 04 Jan, 2018 Diabetes type 2, controlled E11.9 ; Mood disorder F39 and BMI 40.0-44.9, adult Z68.41 [facility] [id number] [address] 3606 Jan, BMI 40.0-44.9, adult Z68.41 [facility] [address] [address] 7344 December, [facility] [address] [address]- 8456 December, [facility] [id number] [place] [address] 34978- 8549 December, Seborrheic keratoses L82.1 [facility] [address] [address] 6966 December, Seborrheic keratoses L82.1 [facility] [address] [address]- 8417 December, [facility] [id number] [address]- 6200 December, [facility] [address], [place] [address]- 2397 December, BMI 40.0-44.9, adult Z68.41 [facility] [address] [address]- 0585 December, [facility] [address], [place] [address]- 8637 December, [facility] [address], [place] [address]- 7723 Nov, [facility] [address], [place] [address]- 0117 Nov, [facility] [address], [place] [address]- 7801 Nov, Seborrheic keratoses L82.1 [facility] [address], [place] [address]- 3085 Nov, Renal insufficiency N28.9 [place] [id number] [place] [address] 72373- 6553 Nov, [place] [address] 98155- 2469 Nov, [place] [id number] [place] [address] 64157- 3502 Nov, [place] [address] 23499- 6320 Nov, Type 2 diabetes mellitus with diabetic neuropathy, unspecified E11.40 ; Other chronic pain G89.29 ; Bronchitis J40 ; Renal cyst N28.1 ; Pain of left foot M79.672 and Pain in right foot M79.671 [place] [id number] [place] [address] 95352- 3132 Oct, Type 2 diabetes mellitus without complications E11.9 [place] [address] 81006- 1796 Oct, SOB (shortness of breath) R06.02 [place] [id number] [place] [address] 52060- 8734 Oct, SOB (shortness of breath) R06.02 [place] [id number] [place] [address] 35981- 2568 Sep, Type 2 diabetes mellitus without complications E11.9 [place] [id number] [place] [address] 20032- 7612 Sep, Left flank pain R10.9 [place] [id number] [place] [address] 06903- 5845 Sep, BMI 40.0-44.9, adult Z68.41 ; Left flank pain R10.9 and Seborrheic keratoses L82.1 [place] [id number] [place] [address] 19175- 2427 Aug, Type 2 diabetes mellitus without complications E11.9 [place] [id number] [address]- 3864 Jul, Type 2 diabetes mellitus without complications E11.9 and Abdominal pain, left lower quadrant R10.32 [facility] [address] [place] [id number] [address] Jun, [facility] [address], [place] [address]- 1439 Jun, Type 2 diabetes mellitus without complications E11.9 [facility] [address], [place] [address]- 2832 Jun, Controlled type 2 diabetes mellitus without complication, without long-term current use of insulin E11.9 and Seborrheic keratoses L82.1 [facility] [address], [place] [address]13 May, Acute back pain M54.9 [facility] [id number] [place] [address] 09027- 7643 May, Type 2 diabetes mellitus without complications E11.9 [facility] [address], [place] [address]- 8689 28 Apr, 2017 Diabetes type 2, controlled E11.9 ; Lumbago with sciatica, left side M54.42 and Diabetic mononeuropathy associated with type 2 diabetes mellitus E11.41 [facility] [address], [place] [address]- 5837 Apr, Type 2 diabetes mellitus without complications E11.9 [facility] [address], [place] [address]- 3187 05 Apr, 2017 [facility] [id number] [place] [address] 69992- 2761 Mar, Type 2 diabetes mellitus without complications E11.9 [facility] [address], [place] [address]- 6085 Feb, Controlled type 2 diabetes mellitus without complication, without long-term current use of insulin E11.9 ; Neuropathy G62.9 and Onychomycosis B35.1 [place] [address] [place] [address] 38861- 8195 Jan, Type 2 diabetes mellitus with diabetic neuropathy, unspecified E11.40 [place] [id number] [place] [address] 23146- 8068 Jan, Type 2 diabetes mellitus with diabetic neuropathy, unspecified E11.40 [place] [id number] [place] [address] 35124- 5252 December, Type 2 diabetes mellitus without complications E11.9 [place] [id number] [place] [address] 12000- 0662 December, Slow transit constipation K59.01 and Pain in right hip M25.551 [place] [id number] [place] [address] 53257- 1165 Nov, Type 2 diabetes mellitus without complications E11.9 [place] [id number] [place] [address] 80242- 1536 Oct, Lumbago with sciatica, left side M54.42 and Other chronic pain G89.29 [place] [id number] [place] [address] 40354- 0066 Sep, Diabetes mellitus E11.9 ; Lumbago with sciatica, left side M54.42 and Type 2 diabetes mellitus without complications E11.9 [place] [address] [place] [address] 78519- 6074 Aug, Type 2 diabetes mellitus without complications E11.9 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 [facility] [id number] [place] [address] [id number] Aug, Dental examination Z01.20 [facility] [id number] [place] [address] [id number] Aug, Dental examination Z01.20 [facility] [id number] [place] [address] 33307 -4606 Aug, Dental abscess K04.7 [place] [id number] [place] [address] 24324- 8703 Jul, Type 2 diabetes mellitus with hyperglycemia E11.65 and senior living 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 [place] [id number] [place] [address] 58684- 8962 Jul, [place] [address] 09316- 2450 Jul, Type 2 diabetes mellitus with diabetic neuropathy, unspecified E11.40 [place] [id number] [place] [address] 34958- 4633 Jun, Type 2 diabetes mellitus with diabetic neuropathy, unspecified E11.40 and Lumbago with sciatica, left side M54.42 [place] [id number] [place] [address] 84325- 5303 May, Controlled type 2 diabetes mellitus without complication, without long-term current use of insulin E11.9 [place] [id number] [place] [address] 92096- 9213 Apr, Controlled type 2 diabetes mellitus without complication, without long-term current use of insulin E11.9 and Lumbar neuritis M54.16 [place] [id number] [place] [address] 41111- 5338 Mar, [place] [id number] [place] [address] 39073- 7250 Mar, Other chronic pain G89.29 ; Pain in left knee M25.562 ; Sciatica, left side M54.32 ; Pain in left hip M25.552 ; Type 2 diabetes mellitus with hyperglycemia E11.65 ; senior living 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 and Mood disorder F39 [place] [id number] [place] [address] 15230- 5047 December, Diabetes type 2, controlled E11.9 [place] [id number] [place] [address] 85459- 2544 December, Diabetes type 2, controlled E11.9 [place] [id number] [place] [address] 49710- 2118 Oct, Shoulder pain, right M25.511 and Knee pain, right M25.561 [place] [id number] [place] [address] 36155- 9608 Oct, Knee pain, left M25.562 [place] [id number] [place] [address] 68498- 5981 Sep, Diabetes mellitus E11.9 and Knee pain M25.569 [place] [address] 54429- 7174 Sep, [place] [id number] [place] [address] 16825- 0587 Jun, Type 2 diabetes mellitus with diabetic neuropathy, unspecified E11.40 and Type 2 diabetes mellitus with hyperglycemia E11.65 [place] [id number] [place] [address] 12868- 5006 May, Diabetes mellitus E11.9 [place] [address] 29756- 8511 May, Diabetes mellitus E11.9 and Lumbago with sciatica, left side M54.42 [place] [id number] [place] [address] 40519- 7906 Jan, Osteoarthritis of knees, bilateral 715.96 [place] [id number] [place] [address] 55566- 0885 December, [place] [id number] [place] [address] 34246- 4783 December, Knee pain, bilateral 719.46 [place] [id number] [place] [address] 53890- 4664 Nov, Knee pain, bilateral 719.46 [place] [id number] [place] [address] 67962- 4346 14 Nov, 2014 [facility] [place] [facility] [address] [id number] [place] [address]- 7600 13 Nov, 2014 [facility] [place] [facility] [address] [id number] [place] [address]- 7338 13 Oct, 2014 [facility] [place] [facility] [address] [facility] [id number] [place] [address]- 0706 Oct, [facility] [place] [facility] [address] [id number] [place] [address]- 8668 Aug, [facility] [place] [facility] [address] [facility] [id number] [place] [address]- 7772 Aug, [facility] [place] [facility] [address] [id number] [place] [address]- 2452 17 Jul, 2014 [facility] [place] [facility] [address] [facility] [id number], [place] [address]- 2453 17 Jul, 2014 [facility] [place] [facility] [address] [facility] [id number] [place] [address]- 3383 17 Jun, 2014 [facility] [place] [facility] [address] [facility] [id number] [place] [address]- 8944 17 Jun, 2014 [facility] [place] [facility] [address] [facility] [id number] [place] [address]- 3628 15 May, 2014 [facility] [place] [facility] [address] [facility] [id number], [place] [address]- 8858 15 May, 2014 [facility] [place] [facility] [address] [id number], [place] [address]- 1246 15 Apr, 2014 [facility] [place] [facility] [address] [id number], [place] [address]- 3911 15 Apr, 2014 [facility] [place] [facility] [address] [facility] [id number], [place] [address]- 8287 08 Apr, 2014 [facility] [place] [facility] [address] [facility] [id number], [place] [address]- 1478 08 Apr, 2014 [facility] [place] [facility] [address] [id number] [place] [address]- 9477 Feb, [facility] [place] [facility] [address] [id number] [place] [address]- 7430 Feb, [facility] [place] [facility] [address] [id number] [place] [address]- 5425 December, [facility] [place] [facility] [address] [id number] [place] [address]- 8948 December, [facility] [place] [facility] [address] [id number] [place] [address]- 7100 December, [facility] [place] [facility] [address] [id number] [place] [address]- 2175 December, [facility] [place] [facility] [address] [id number] [place] [address]- 2223 Nov, [facility] [place] [facility] [address] [id number] [place] [address]- 7138 Nov, [facility] [place] [facility] [address] [id number] [place] [address]- 4884 Oct, [facility] [place] [facility] [address] [id number] [place] [address]- 9638 Oct, [facility] [place] [facility] [address] [id number] [place] [address]- 1845 Aug, [facility] [place] [facility] [address] [id number] [place] [address]- 9478 Aug, [facility] [place] [facility] [address] [id number] [place] [address]- 2059 Jul, [facility] [place] [facility] [address] [id number] [place] [address]- 4222 Jul, [facility] [place] [facility] [address] [id number] [place] [address]- 2546 May, [facility] [place] [facility] [address] [id number] [place] [address]- 7407 Jan, [facility] [address] [id number] [place] [address]- 7451 Jan, [facility] [place] [facility] [address] [id number] [place] [address]- 4629 December, [facility] [place] [facility] [address] [id number] [place] [address]- 7244 Nov, [facility] [place] [facility] [address] [id number] [place] [address]- 9216 25 Oct, 2012 [facility] [address] [id number] [place] [address]- 5183 19 Oct, 2012 [facility] [place] [facility] [address] [id number] [place] [address]- 3510 14 Oct, 2012 [facility] [place] [facility] [address] [id number] [place] [address]- 4276 Oct, [facility] [place] [facility] [address] [id number] [place] [address]- 9005 07 Oct, 2012 [facility] [place] [facility] [address] [id number] [place] [address]- 7005 07 Oct, 2012 [facility] [place] [facility] [address] [facility] [id number] [place] [address]- 6503 07 Sep, 2012 [facility] [place] [facility] [address] [id number] [place] [address]- 1833 Jul, [facility] [place] [facility] [address] [id number], [place] [address]- 4997 Jul, [facility] [place] [facility] [address] [id number] [place] [address]- 1102 Jul, [facility] [place] [facility] [address] [facility] [id number] [place] [address]- 2232 Jun, [facility] [place] [facility] [address] [facility] [id number] [place] [address]- 2546 Jun, [facility] [place] [facility] [address] [id number] [place] [address]- 4335 Jun, [facility] [address] [id number] [place] [address]- 8610 Jun, [facility] [place] [facility] [address] [id number] [place] [address]- 5346 Mar, [facility] [address] [id number] [place] [address]- 1972 Mar, [facility] [place] [facility] [address] [id number] [place] [address]- 2713 Feb, [facility] [address] [id number] [place] [address]- 5021 Feb, [facility] [place] [facility] [address] [id number] [place] [address]- 6646 December, [facility] [address] [id number] [place] [address]- 1596 December, [facility] [address] [id number] [place] [address]- 7688 Nov, [facility] [place] [facility] [address] [id number] [place] [address]- 7794 Oct, [facility] [address] [id number] [place] [address]- 4435 Oct, [facility] [address] [id number] [place] [address]- 9104 Jul, [facility] [place] [facility] [address] [id number] [place] [address]- 2546 Sep, [facility] [place] [facility] [address] [id number] [place] [address]- 5486 Jul, [facility] [place] [facility] [address] [id number] [place] [address]- 2546 Jan, [facility] [place] [facility] [address] [id number] [place] [address]- 3475 Jun, [facility] [address] [facility] [id number], [place] [address] 2546 Mar, [facility] [address] [facility] [id number], [place] [address] 2546 Jan, [facility] [address] [facility] [id number], [place] [address] 2546 December, [facility] [address] [facility] [id number], [place] [address]- 2546 Oct, [facility] [address] [facility] [id number], [place] [address]- 9266 Sep, IMMUNIZATIONS No Known Immunizations SOCIAL HISTORY Never Assessed REASON FOR VISIT DM, PT has a sore throat, body aches, SOB. PT also went to the ER last night- Braulio [facility] PLAN OF CARE Activity Details Follow Up 4 Weeks Reason:diabetic neuropathy VITAL SIGNS Height 67 in 2017-11-08 Weight 274.3 lbs 2017-11-08 Temperature 98.2 degrees Fahrenheit 2017-11-08 Heart Rate 74 bpm 2017-11-08 Respiratory Rate 20 2017-11-08 Oximetry 97 % 2017-11-08 BMI 42.96 kg/m2 2017-11-08 Blood pressure systolic 168 mmHg 2017-11-08 Blood pressure diastolic 92 mmHg 2017-11-08 MEDICATIONS Medication Instructions Dosage Frequency Start Date End Date Duration Status Lipitor 20 mg Orally Once a day 1 tablet 24h May, Active Doxepin HCl 50 mg Orally Once a day, at night 2 capsules Nov, Active PredniSONE 20 MG Orally Once a day 1 tablet 24h Not-Taking Aspirin 325 MG Orally Once a day 1 tablet 24h Active ProAir HFA 108 (90 Base) MCG/ACT Inhalation every 6 hrs 2 puffs as needed 6h Oct, Active Levemir FlexTouch 100 UNIT/ML Subcutaneous Once a day 90 units 24h May, Active BD Pen Needle Ultrafine 29G X 12.7MM Inject 6h May, Active Lisinopril 40 mg Orally Once a day 1 tablet 24h May, Active Humalog KwikPen 100 UNIT/ML Subcutaneous 3 times a day 30 units 8h December, Active Metformin HCl 1000 MG Orally Twice a day 1 tablet with meals 12h 05 May, 2015 Active Lyrica 75 MG Orally Twice a day 1 capsule 12h 15 Jan, 2017 30 days Not -Taking Oxycodone-Acetaminophen 10-325 MG Orally every 6 hrs 1 tablet as needed 6h Oct, 28 days Active Neurontin 800 MG Orally Three times a day 1 capsule 8h 14 Feb, 2017 Active RESULTS No Results PROCEDURES Procedure Date Ordered Result Body Site DRUG SCREEN AMPHETAMINES 08/10November 08, 2017 DRUG TEST PRSMV CHEM ANLYZR November 08, 2017 FQ VISIT ESTABLISHED PATIENT November 08, 2017 GLYCATED HEMOGLOBIN TEST November 08, 2017 INSTRUCTIONS MEDICATIONS ADMINISTERED No Known Medications MEDICAL (GENERAL) HISTORY Type Description Date Medical History type II diabetes Medical History hyperlipidemia Medical History hypertension Medical History chronic pain back/knees Surgical History right knee arthroscopy 1994 Surgical History heart cath, 2010--clear Surgical History left knee arthroscopy 2010 Surgical History back surgery with rods 12/2016 Hospitalization History surgeries Hospitalization History [facility] ED- Back/Left Side Pain 06/06/2017 Hospitalization History [facility] ED- Congested, cough and SOB 11/07/2017
--- OUTSIDE RECORDS SUMMARY | 2018-04-20 16:06 | XMS REPORT ---
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 Active 441740334 Problem Type 2 diabetes mellitus with diabetic neuropathy, unspecified E11.40 Active 20739804 Problem Diabetes type 2, controlled E11.9 Active 47249381 Problem Type 2 diabetes mellitus with hyperglycemia E11.65 Active 352725640 Problem Controlled type 2 diabetes mellitus without complication, without long -term current use of insulin E11.9 Active 429957289 Problem Chronic fatigue R53.82 Active 59407784 Problem Mood disorder F39 Active 07293332 Problem Slow transit constipation K59.01 Active 10333663 Problem Other chronic pain G89.29 Active 55267875 Problem Diabetic mononeuropathy associated with type 2 diabetes mellitus E11.41 Active 041754253 Problem Neuropathy G62.9 Active 778853397 ALLERGIES No Information ENCOUNTERS Encounter Location Date Diagnosis [place] [id number] [place] [address] 08006- 2740 Mar, [place] [id number] [place] [address] 83472- 1206 Feb, Seborrheic keratoses L82.1 and Type 2 diabetes mellitus with diabetic neuropathy, unspecified E11.40 [place] [id number] [place] [address] 84694- 1296 Feb, Type 2 diabetes mellitus with diabetic neuropathy, unspecified E11.40 ; Renal insufficiency N28.9 and Chronic fatigue R53.82 [place] [address] [address] 28 Jan, 2018 Pneumonia of both lower lobes due to infectious organism J18.1 and Mood disorder F39 [facility] [address] [address] 22[address] Jan, BMI 40.0-44.9, adult Z68.41 [facility] [address] [id number] [address] 2958 Jan, [facility] [id number] [place] [address] 14327- 3342 Jan, [facility] [address] [place] [address] 10822 -8712 Jan, Wheezes R06.2 ; Diabetes type 2, controlled E11.9 and Pneumonia of right lower lobe due to infectious organism J18.1 [facility] [address] [address] 4482 Jan, Renal insufficiency N28.9 [facility] [address] [address] 6693 Jan, Seborrheic keratoses L82.1 [facility] [address] [address] 7523 18 Jan, 2018 [facility] [address] [address] 6194 11 Jan, 2018 [facility] [address] [place] [address] 88328- 0181 08 Jan, 2018 Renal insufficiency N28.9 [facility] [address] [place] [address] 26652- 1814 07 Jan, 2018 [facility] [address] [address] [id number] [place] [address] 26688- 1052 04 Jan, 2018 Diabetes type 2, controlled E11.9 ; Mood disorder F39 and BMI 40.0-44.9, adult Z68.41 [facility] [id number] [address] 1044 Jan, BMI 40.0-44.9, adult Z68.41 [facility] [address] [address] 6126 December, [facility] [address] [address]- 2366 December, [facility] [id number] [place] [address] 55197- 0956 December, Seborrheic keratoses L82.1 [facility] [address] [place] [address] 584981- 3696 December, Seborrheic keratoses L82.1 [facility] [address] [address]- 9866 December, [facility] [id number] [place] [address] 92557- 7059 December, [facility] [address], [place] [address]- 1006 December, BMI 40.0-44.9, adult Z68.41 [facility] [address], [place] [address]- 7584 December, [facility] [address], [place] [address]- 7468 December, [facility] [address], [place] [address]- 4693 Nov, [facility] [address] [address]- 6479 Nov, [facility] [address], [place] [address]- 3957 Nov, Seborrheic keratoses L82.1 [facility] [address], [place] [address]- 9098 Nov, Renal insufficiency N28.9 [place] [address] [place] [id number] [place] [address] 39927- 3502 Nov, [place] [address] [place] [id number] [place] [address] 30024- 1502 Nov, [place] [address] [place] [id number] [place] [address] 04745- 5362 Nov, [place] [address] 06478- 1591 Nov, Type 2 diabetes mellitus with diabetic neuropathy, unspecified E11.40 ; Other chronic pain G89.29 ; Bronchitis J40 ; Renal cyst N28.1 ; Pain of left foot M79.672 and Pain in right foot M79.671 [place] [address] [place] [id number] [place] [address] 99877- 9105 Oct, Type 2 diabetes mellitus without complications E11.9 [place] [address] [place] [id number] [place] [address] 94120- 3696 Oct, SOB (shortness of breath) R06.02 [place] [address] [place] [id number] [place] [address] 00736- 5399 Oct, SOB (shortness of breath) R06.02 [place] [address] [place] [id number] [place] [address] 32489- 3661 Sep, Type 2 diabetes mellitus without complications E11.9 [place] [address] [place] [id number] [place] [address] 49910- 5666 Sep, Left flank pain R10.9 [place] [address] [place] [id number] [place] [address] 65195- 0383 Sep, BMI 40.0-44.9, adult Z68.41 ; Left flank pain R10.9 and Seborrheic keratoses L82.1 [place] [address] [place] [id number] [place] [address] 78034- 6061 Aug, Type 2 diabetes mellitus without complications E11.9 [place] [address] [address]- 2176 Jul, Type 2 diabetes mellitus without complications E11.9 and Abdominal pain, left lower quadrant R10.32 [facility] [address] [id number] [address] Jun, [facility] [address], [place] [address]- 5104 Jun, Type 2 diabetes mellitus without complications E11.9 [facility] [address], [place] [address]- 2598 Jun, Controlled type 2 diabetes mellitus without complication, without long-term current use of insulin E11.9 and Seborrheic keratoses L82.1 [facility] IN [facility] [address], [place] [address]4 May, Acute back pain M54.9 [facility] [address] [place] [address] 05840- 7059 May, Type 2 diabetes mellitus without complications E11.9 [facility] [address] [place] [address] 36945- 1574 28 Apr, 2017 Diabetes type 2, controlled E11.9 ; Lumbago with sciatica, left side M54.42 and Diabetic mononeuropathy associated with type 2 diabetes mellitus E11.41 [facility] [address], [place] [address]- 0987 18 Apr, 2017 Type 2 diabetes mellitus without complications E11.9 [facility] [address], [place] [address]- 1831 05 Apr, 2017 [facility] [address] [place] [address] 34401- 5890 Mar, Type 2 diabetes mellitus without complications E11.9 [facility] [address] [address]- 0072 Feb, Controlled type 2 diabetes mellitus without complication, without long-term current use of insulin E11.9 ; Neuropathy G62.9 and Onychomycosis B35.1 [place] [address] [place] [id number] [place] [address] 34034- 9658 Jan, Type 2 diabetes mellitus with diabetic neuropathy, unspecified E11.40 [place] [address] [place] [id number] [place] [address] 19532- 5084 Jan, Type 2 diabetes mellitus with diabetic neuropathy, unspecified E11.40 [place] [address] 66989- 6619 December, Type 2 diabetes mellitus without complications E11.9 [place] [address] 26994- 1944 December, Slow transit constipation K59.01 and Pain in right hip M25.551 [place] [address] 27048- 6940 Nov, Type 2 diabetes mellitus without complications E11.9 [place] [address] [place] [id number] [place] [address] 37195- 9527 Oct, Lumbago with sciatica, left side M54.42 and Other chronic pain G89.29 [place] [address] [place] [id number] [place] [address] 76402- 7404 Sep, Diabetes mellitus E11.9 ; Lumbago with sciatica, left side M54.42 and Type 2 diabetes mellitus without complications E11.9 [place] [address] [place] [id number] [place] [address] 86994- 3692 Aug, Type 2 diabetes mellitus without complications E11.9 and correction 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 [facility] [address] [id number] [place] [address] [id number] Aug, Dental examination Z01.20 [facility] [address] [id number] [place] [address] [id number] Aug, Dental examination Z01.20 [facility] [address] [id number] [place] [address] 92022 -1421 Aug, Dental abscess K04.7 [place] [address] [place] [id number] [place] [address] 54983- 2316 Jul, Type 2 diabetes mellitus with hyperglycemia E11.65 and 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 [place] [address] [place] [id number] [place] [address] 80690- 5161 Jul, [place] [address] 81179- 5846 Jul, Type 2 diabetes mellitus with diabetic neuropathy, unspecified E11.40 [place] [address] 23124- 6907 Jun, Type 2 diabetes mellitus with diabetic neuropathy, unspecified E11.40 and Lumbago with sciatica, left side M54.42 [place] [address] [place] [id number] [place] [address] 29513- 2757 May, Controlled type 2 diabetes mellitus without complication, without long-term current use of insulin E11.9 [place] [address] [place] [id number] [place] [address] 92211- 9749 Apr, Controlled type 2 diabetes mellitus without complication, without long-term current use of insulin E11.9 and Lumbar neuritis M54.16 [place] [address] [place] [id number] [place] [address] 83879- 8771 Mar, [place] [address] [place] [id number] [place] [address] 63271- 6035 Mar, Other chronic pain G89.29 ; Pain in left knee M25.562 ; Sciatica, left side M54.32 ; Pain in left hip M25.552 ; Type 2 diabetes mellitus with hyperglycemia E11.65 ; 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 and Mood disorder F39 [place] [address] [place] [id number] [place] [address] 02329- 0273 December, Diabetes type 2, controlled E11.9 [place] [address] [place] [id number] [place] [address] 00241- 5862 December, Diabetes type 2, controlled E11.9 [facility] [address] [place] [id number] [place] [address] 57034- 9175 Oct, Shoulder pain, right M25.511 and Knee pain, right M25.561 [place] [address] [place] [id number] [place] [address] 25868- 8733 Oct, Knee pain, left M25.562 [place] [address] [place] [id number] [place] [address] 78378- 1660 Sep, Diabetes mellitus E11.9 and Knee pain M25.569 [place] [address] [place] [id number] [place] [address] 68069- 0095 Sep, [place] [address] [place] [id number] [place] [address] 08815- 3814 Jun, Type 2 diabetes mellitus with diabetic neuropathy, unspecified E11.40 and Type 2 diabetes mellitus with hyperglycemia E11.65 [place] [address] [place] [id number] [place] [address] 20540- 7910 May, Diabetes mellitus E11.9 [place] [address] [place] [id number] [place] [address] 53074- 4613 May, Diabetes mellitus E11.9 and Lumbago with sciatica, left side M54.42 [place] [address] [place] [id number] [place] [address] 73422- 5727 Jan, Osteoarthritis of knees, bilateral 715.96 [place] [address] [place] [id number] [place] [address] 38335- 4385 December, [place] [address] [place] [id number] [place] [address] 46219- 8796 December, Knee pain, bilateral 719.46 [place] [address] [place] [id number] [place] [address] 45144- 1804 Nov, Knee pain, bilateral 719.46 [place] [address] [place] [address]- 9116 14 Nov, 2014 [facility] [place] [facility] [address] [id number] [place] [address]- 8892 13 Nov, 2014 [facility] [place] [facility] [address] [id number] [place] [address]- 5211 13 Oct, 2014 [facility] [place] [facility] [address] [id number] [place] [address]- 0117 13 Oct, 2014 [facility] [place] [facility] [address] [id number] [place] [address]- 8523 07 Aug, 2014 [facility] [place] [facility] [address] [id number] [place] [address]- 9900 Aug, [facility] [place] [facility] [address] [id number] [place] [address]- 6995 17 Jul, 2014 [facility] [place] [facility] [address] [id number] [place] [address]- 6337 17 Jul, 2014 [facility] [place] [facility] [address] [id number] [place] [address]- 3151 17 Jun, 2014 [facility] [place] [facility] [address] [id number] [place] [address]- 8711 17 Jun, 2014 [facility] [place] [facility] [address] [id number] [place] [address]- 3062 15 May, 2014 [facility] [place] [facility] [address] [id number] [place] [address]- 8600 15 May, 2014 [facility] [place] [facility] [address] [id number] [place] [address]- 9554 15 Apr, 2014 [facility] [place] [facility] [address] [id number] [place] [address]- 9874 15 Apr, 2014 [facility] [place] [facility] [address] [id number] [place] [address]- 6968 08 Apr, 2014 [facility] [place] [facility] [address] [id number] [place] [address]- 0731 08 Apr, 2014 [facility] [place] [facility] [address] [id number] [place] [address]- 8859 Feb, [facility] [place] [facility] [address] [id number] [place] [address]- 8256 Feb, [facility] [place] [facility] [address] [id number] [place] [address]- 3302 December, [facility] [place] [facility] [address] [id number] [place] [address]- 5564 December, [facility] [place] [facility] [address] [id number] [place] [address]- 3177 December, [facility] [place] [facility] [address] [id number] [place] [address]- 7966 December, [facility] [place] [facility] [address] [id number] [place] [address]- 3635 Nov, [facility] [place] [facility] [address] [id number] [place] [address]- 1901 Nov, [facility] [place] [facility] [address] [id number] [place] [address]- 5318 Oct, [facility] [place] [facility] [address] [id number] [place] [address]- 2316 Oct, [facility] [place] [facility] [address] [id number] [place] [address]- 9221 Aug, [facility] [place] [facility] [address] [id number] [place] [address]- 1106 Aug, [facility] [place] [facility] [address] [id number] [place] [address]- 5565 Jul, [facility] [place] [facility] [address] [id number] [place] [address]- 2473 Jul, [facility] [place] [facility] [address] [id number] [place] [address]- 7880 May, [facility] [place] [facility] [address] [id number] [place] [address]- 2696 Jan, [facility] [address] [id number] [place] [address]- 8204 Jan, [facility] [place] [facility] [address] [id number] [place] [address]- 0907 December, [facility] [place] [facility] [address] [id number] [place] [address]- 7386 Nov, [facility] [place] [facility] [address] [id number] [place] [address]- 0275 25 Oct, 2012 [facility] [place] [facility] [address] [id number] [place] [address]- 2610 19 Oct, 2012 [facility] [place] [facility] [address] [id number] [place] [address]- 7306 14 Oct, 2012 [facility] [place] [facility] [address] [id number] [place] [address]- 6204 11 Oct, 2012 [facility] [place] [facility] [address] [id number] [place] [address]- 6369 07 Oct, 2012 [facility] [place] [facility] [address] [id number] [place] [address]- 7785 07 Oct, 2012 [facility] [place] [facility] [address] [id number] [place] [address]- 1139 07 Sep, 2012 [facility] [place] [facility] [address] [id number] [place] [address]- 4664 Jul, [facility] [place] [facility] [address] [id number] [place] [address]- 8767 Jul, [facility] [place] [facility] [address] [id number] [place] [address]- 2034 Jul, [facility] [place] [facility] [address] [id number] [place] [address]- 5083 Jun, [facility] [place] [facility] [address] [id number] [place] [address]- 7836 Jun, [facility] [place] [facility] [address] [id number] [place] [address]- 2546 Jun, [facility] [address] [id number] [place] [address]- 0436 Jun, [facility] [address] [id number] [place] [address]- 2546 Mar, [facility] [address] [id number] [place] [address] 2546 Mar, [facility] [address] [id number] [place] [address]- 2546 Feb, [facility] [address] [id number] [place] [address]- 8406 Feb, [facility] [address] [id number] [place] [address]- 2546 December, [facility] [address] [id number] [place] [address]- 2546 December, [facility] [address] [id number] [place] [address]- 6426 Nov, [facility] [address] [id number] [place] [address]- 6976 Oct, [facility] [address] [id number] [place] [address]- 2546 Oct, [facility] [address] [id number] [place] [address]- 2546 Jul, [facility] [address] [id number] [place] [address]- 2546 Sep, [facility] [address] [id number] [place] [address]- 2546 Jul, [facility] [address] [id number] [place] [address]- 2546 Jan, [facility] [address] [id number] [place] [address]- 2546 Jun, [facility] [address] [facility] [id number] [address]- 2546 Mar, [facility] [id number] [address]- 2546 Jan, [facility] [address] [facility] [id number], [place] [address]- 2546 December, [facility] [id number] [address]- 2546 Oct, [facility] [address] [facility] [id number], [place] [address]- 8166 Sep, IMMUNIZATIONS No Known Immunizations SOCIAL HISTORY Never Assessed REASON FOR VISIT Controlled Med Refill 10/26 PLAN OF CARE VITAL SIGNS MEDICATIONS Medication Instructions Dosage Frequency Start Date End Date Duration Status Oxycodone-Acetaminophen 10-325 MG Orally every 6 hrs 1 tablet as needed 6h Oct, 28 days Active RESULTS No Results PROCEDURES [...] 12/2016 Hospitalization History surgeries Hospitalization History [facility] ED- Back/Left Side Pain 06/06/2017 Hospitalization History [facility] ED- Congested, cough and SOB 11/07/2017
--- OUTSIDE RECORDS SUMMARY | 2018-04-20 16:06 | XMS REPORT ---
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 Active 872047910 Problem Type 2 diabetes mellitus with diabetic neuropathy, unspecified E11.40 Active 24324999 Problem Diabetes type 2, controlled E11.9 Active 86165110 Problem Type 2 diabetes mellitus with hyperglycemia E11.65 Active 878329011 Problem Controlled type 2 diabetes mellitus without complication, without long -term current use of insulin E11.9 Active 065819981 Problem Chronic fatigue R53.82 Active 56442856 Problem Mood disorder F39 Active 69223095 Problem Slow transit constipation K59.01 Active 97206484 Problem Other chronic pain G89.29 Active 50100901 Problem Diabetic mononeuropathy associated with type 2 diabetes mellitus E11.41 Active 525292775 Problem Neuropathy G62.9 Active 924107783 ALLERGIES No Information ENCOUNTERS Encounter Location Date Diagnosis [place] [id number] [address] Mar, [place] [id number] [address] Feb, Type 2 diabetes mellitus with diabetic neuropathy, unspecified E11.40 ; Renal insufficiency N28.9 and Chronic fatigue R53.82 [facility] [id number] [address] Jan, Pneumonia of both lower lobes due to infectious organism J18.1 and Mood disorder F39 [place] [id number] [place] [address] 74800- 9560 Jan, BMI 40.0-44.9, adult Z68.41 [facility] [id number] [place] [address] 11246- 8331 Jan, [facility] [id number] [place] [address] 51433- 1119 Jan, [facility] [id number] [place] [address] 79977 -8486 Jan, Wheezes R06.2 ; Diabetes type 2, controlled E11.9 and Pneumonia of right lower lobe due to infectious organism J18.1 [facility] [id number] [place] [address] 49465- 1769 Jan, Renal insufficiency N28.9 [facility] [id number] [place] [address] 21339- 4659 Jan, Seborrheic keratoses L82.1 [facility] [id number] [place] [address] 70651- 1414 Jan, [facility] [id number] [place] [address] 70317- 6820 Jan, [facility] [id number] [place] [address] 39150- 9160 Jan, Renal insufficiency N28.9 [facility] [id number] [place] [address] 62577- 7123 Jan, [facility] [id number] [place] [address] 04860- 0192 Jan, Diabetes type 2, controlled E11.9 ; Mood disorder F39 and BMI 40.0-44.9, adult Z68.41 [facility] [id number] [place] [address] 41553- 7158 Jan, BMI 40.0-44.9, adult Z68.41 [facility] [id number] [place] [address] 48013- 7658 December, [facility] [id number] [place] [address] December, [facility] [address], [place] [address] 1316 December, Seborrheic keratoses L82.1 [facility] [id number], [place] [address]- 1346 December, Seborrheic keratoses L82.1 [facility] [address], [place] [address] 5306 December, [facility] [id number] [place] [address] 89731- 7412 December, [facility] [id number] [place] [address] 50024- 3505 December, BMI 40.0-44.9, adult Z68.41 [facility] [address] [address]- 9634 December, [facility] [address] [address]- 4636 December, [facility] [address], [place] [address] 2834 Nov, [facility] [address] [address]- 1006 Nov, [facility] [address], [place] [address] 5800 Nov, Seborrheic keratoses L82.1 [facility] [address], [place] [address]- 0333 Nov, Renal insufficiency N28.9 [facility] [address], [place] [address]- 7915 Nov, [facility] [address], [place] [address]- 6566 Nov, [place] [address], [place] [address]- 8279 Nov, [place] [id number] [place] [address] 04778- 0111 Nov, Type 2 diabetes mellitus with diabetic neuropathy, unspecified E11.40 ; Other chronic pain G89.29 ; Bronchitis J40 ; Renal cyst N28.1 ; Pain of left foot M79.672 and Pain in right foot M79.671 [place] [address], [place] [address] 5921 Oct, Type 2 diabetes mellitus without complications E11.9 [place] [id number] [place] [address] 42836- 9282 Oct, SOB (shortness of breath) R06.02 [place] [id number] [place] [address] 49753- 8286 Oct, SOB (shortness of breath) R06.02 [place] [id number] [place] [address] 67512- 9246 Sep, Type 2 diabetes mellitus without complications E11.9 [place] [id number] [place] [address] 81298- 2017 Sep, Left flank pain R10.9 [place] [address] [place] [address] 45626- 1308 Sep, BMI 40.0-44.9, adult Z68.41 ; Left flank pain R10.9 and Seborrheic keratoses L82.1 [place] [address] [place] [address] 42010- 5245 Aug, Type 2 diabetes mellitus without complications E11.9 [place] [address], [place] [address]- 4383 Jul, Type 2 diabetes mellitus without complications E11.9 and Abdominal pain, left lower quadrant R10.32 [facility] [address] [id number] [address] Jun, [place] [id number] [place] [address] 51209- 7777 Jun, Type 2 diabetes mellitus without complications E11.9 [facility] [address], [place] [address]- 3[address] 02 Jun, 2017 Controlled type 2 diabetes mellitus without complication, without long-term current use of insulin E11.9 and Seborrheic keratoses L82.1 [facility] [address], [place] [address] May, Acute back pain M54.9 [place] [id number] [place] [address] 42961- 0786 13 May, 2017 Type 2 diabetes mellitus without complications E11.9 [place] [id number] [place] [address] 33002- 6002 28 Apr, 2017 Diabetes type 2, controlled E11.9 ; Lumbago with sciatica, left side M54.42 and Diabetic mononeuropathy associated with type 2 diabetes mellitus E11.41 [place] [address] [place] [address] 86864- 1229 18 Apr, 2017 Type 2 diabetes mellitus without complications E11.9 [place] [address], [place] [address]- 1798 05 Apr, 2017 [facility] [id number] [place] [address] 04434- 1926 Mar, Type 2 diabetes mellitus without complications E11.9 [facility] [address], [place] [address]- 4898 14 Feb, 2017 Controlled type 2 diabetes mellitus without complication, without long-term current use of insulin E11.9 ; Neuropathy G62.9 and Onychomycosis B35.1 [facility] [address], [place] [address]- 9345 15 Jan, 2017 Type 2 diabetes mellitus with diabetic neuropathy, unspecified E11.40 [place] [address] [place] [address] 84486- 4121 Jan, Type 2 diabetes mellitus with diabetic neuropathy, unspecified E11.40 [place] [id number] [place] [address] 88394- 9420 December, Type 2 diabetes mellitus without complications E11.9 [place] [id number] [place] [address] 50634- 6518 December, Slow transit constipation K59.01 and Pain in right hip M25.551 [place] [id number] [place] [address] 75673- 8646 Nov, Type 2 diabetes mellitus without complications E11.9 [place] [id number] [place] [address] 98520- 3684 Oct, Lumbago with sciatica, left side M54.42 and Other chronic pain G89.29 [place] [id number] [place] [address] 26330- 4496 Sep, Diabetes mellitus E11.9 ; Lumbago with sciatica, left side M54.42 and Type 2 diabetes mellitus without complications E11.9 [place] [id number] [place] [address] 78410- 2663 Aug, Type 2 diabetes mellitus without complications E11.9 and FCI 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 [facility] [id number] [place] [address] [id number] Aug, Dental examination Z01.20 [facility] [id number] [place] [address] [id number] Aug, Dental examination Z01.20 [facility] [id number] [place] [address] 07344 -1034 Aug, Dental abscess K04.7 [facility] [id number] [place] [address] 03857- 8703 Jul, Type 2 diabetes mellitus with hyperglycemia E11.65 and FCI 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 [place] [id number] [place] [address] 69731- 2280 Jul, [place] [id number] [place] [address] 88023- 7103 Jul, Type 2 diabetes mellitus with diabetic neuropathy, unspecified E11.40 [place] [id number] [place] [address] 57377- 7228 Jun, Type 2 diabetes mellitus with diabetic neuropathy, unspecified E11.40 and Lumbago with sciatica, left side M54.42 [place] [id number] [place] [address] 82138- 2707 May, Controlled type 2 diabetes mellitus without complication, without long-term current use of insulin E11.9 [place] [id number] [place] [address] 81680- 3993 Apr, Controlled type 2 diabetes mellitus without complication, without long-term current use of insulin E11.9 and Lumbar neuritis M54.16 [place] [id number] [place] [address] 51947- 3326 Mar, [place] [id number] [place] [address] 28447- 0337 Mar, Other chronic pain G89.29 ; Pain in left knee M25.562 ; Sciatica, left side M54.32 ; Pain in left hip M25.552 ; Type 2 diabetes mellitus with hyperglycemia E11.65 ; FCI 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 and Mood disorder F39 [place] [address], [place] [address]- 9342 December, Diabetes type 2, controlled E11.9 [place] [id number] [place] [address] 50196- 9045 December, Diabetes type 2, controlled E11.9 [place] [id number] [place] [address] 56569- 9274 Oct, Shoulder pain, right M25.511 and Knee pain, right M25.561 [facility] [address], [place] [address]- 8996 Oct, Knee pain, left M25.562 [facility] [id number] [place] [address] 82052- 6066 Sep, Diabetes mellitus E11.9 and Knee pain M25.569 [facility] [id number] [place] [address] 72941- 3493 Sep, [facility] [id number] [place] [address] 71643- 4908 Jun, Type 2 diabetes mellitus with diabetic neuropathy, unspecified E11.40 and Type 2 diabetes mellitus with hyperglycemia E11.65 [facility] [id number] [place] [address] 19557- 2386 May, Diabetes mellitus E11.9 [facility] [id number] [place] [address] 51872- 6740 May, Diabetes mellitus E11.9 and Lumbago with sciatica, left side M54.42 [facility] [id number] [place] [address] 51363- 3027 Jan, Osteoarthritis of knees, bilateral 715.96 [facility] [address], [place] [address]- 7178 December, [facility] [id number] [place] [address] 47073- 5648 December, Knee pain, bilateral 719.46 [facility] [id number] [place] [address] 21168- 0853 Nov, Knee pain, bilateral 719.46 [facility] [id number] [place] [address] 15777- 8412 Nov, [facility] [address] [address]- 8143 Nov, [facility] [id number] [place] [address]- 4727 13 Oct, 2014 [facility] [address] [id number] [place] [address]- 3019 13 Oct, 2014 [facility] [place] [facility] [address] [id number] [place] [address]- 6673 Aug, [facility] [address] [id number] [place] [address]- 9540 Aug, [facility] [place] [facility] [address] [id number] [place] [address]- 4650 Jul, [facility] [address] [id number] [place] [address]- 0457 Jul, [facility] [place] [facility] [address] [id number] [place] [address]- 1889 Jun, [facility] [place] [facility] [address] [id number] [place] [address]- 9466 17 Jun, 2014 [facility] [place] [facility] [address] [id number] [place] [address]- 2063 15 May, 2014 [facility] [place] [facility] [address] [id number] [place] [address]- 0048 15 May, 2014 [facility] [place] [facility] [address] [id number] [place] [address]- 0299 15 Apr, 2014 [facility] [place] [facility] [address] [id number] [place] [address]- 1507 15 Apr, 2014 [facility] [place] [facility] [address] [id number] [place] [address]- 0714 08 Apr, 2014 [facility] [place] [facility] [address] [id number] [place] [address]- 2725 08 Apr, 2014 [facility] [place] [facility] [address] [id number] [place] [address]- 4454 16 Feb, 2014 [facility] [place] [facility] [address] [id number] [place] [address]- 4251 Feb, [facility] [address] [id number] [place] [address]- 1417 December, [facility] [place] [facility] [address] [id number] [place] [address]- 5186 December, [facility] [place] [facility] [address] [id number] [place] [address]- 8346 December, [facility] [place] [facility] [address] [id number] [place] [address]- 4576 December, [facility] [place] [facility] [address] [id number] [place] [address]- 1725 Nov, [facility] [place] [facility] [address] [id number] [place] [address]- 0656 Nov, [facility] [place] [facility] [address] [id number] [place] [address]- 1168 Oct, [facility] [place] [facility] [address] [id number] [place] [address]- 4443 Oct, [facility] [place] [facility] [address] [id number] [place] [address]- 2256 Aug, [facility] [place] [facility] [address] [id number] [place] [address]- 1463 Aug, [facility] [place] [facility] [address] [id number] [place] [address]- 4476 Jul, [facility] [place] [facility] [address] [id number] [address]- 6 Jul, [facility] [place] [facility] [address] [id number] [place] [address]- 7136 May, [facility] [place] [facility] [address] [id number] [place] [address]- 3756 Jan, [facility] [place] [facility] [address] [id number] [address]- 9576 Jan, [facility] [place] [facility] [address] [id number] [address]- 0301 December, [facility] [address] [id number] [place] [address]- 0586 Nov, [facility] [place] [facility] [address] [id number] [place] [address]- 8950 25 Oct, 2012 [facility] [address] [facility] [id number] [place] [address]- 8850 19 Oct, 2012 [facility] [place] [facility] [address] [id number] [place] [address]- 4037 14 Oct, 2012 [facility] [address] [id number] [place] [address]- 3251 11 Oct, 2012 [facility] [address] [facility] [id number] [place] [address]- 8980 07 Oct, 2012 [facility] [address] [facility] [id number] [place] [address]- 0537 07 Oct, 2012 [facility] [place] [facility] [address] [facility] [id number] [place] [address]- 5596 07 Sep, 2012 [facility] [address] [facility] [id number] [place] [address]- 6784 Jul, [facility] [address] [facility] [id number] [place] [address]- 1906 Jul, [facility] [address] [facility] [id number] [place] [address]- 6585 Jul, [facility] [place] [facility] [address] [id number] [place] [address]- 2599 Jun, [facility] [place] [facility] [address] [id number] [place] [address]- 5603 Jun, [facility] [place] [facility] [address] [facility] [id number] [place] [address]- 1982 29 Jun, 2012 [facility] [place] [facility] [address] [facility] [id number] [place] [address]- 9874 Jun, [facility] [place] [facility] [address] [id number] [place] [address] 2546 Mar, [facility] [place] [facility] [address] [id number] [place] [address]- 1270 Mar, [facility] [place] [facility] [address] [id number] [place] [address] 2546 Feb, [facility] [place] [facility] [address] [id number] [place] [address]- 6279 Feb, [facility] [place] [facility] [address] [id number] [place] [address]- 1686 December, [facility] [place] [facility] [address] [id number] [place] [address]- 8436 December, [facility] [place] [facility] [address] [id number] [place] [address]- 0386 Nov, [facility] [place] [facility] [address] [id number] [place] [address]- 9813 Oct, [facility] [place] [facility] [address] [id number] [place] [address]- 9827 Oct, [facility] [place] [facility] [address] [id number] [place] [address]- 9983 Jul, [facility] [place] [facility] [address] [id number] [place] [address]- 4045 Sep, [facility] [place] [facility] [address] [id number] [place] [address]- 0016 Jul, [facility] [place] [facility] [address] [id number] [place] [address]- 2758 Jan, [facility] [place] [facility] [address] [id number] [place] [address]- 5236 Jun, [facility] [place] [facility] [address] [id number] [place] [address]- 2546 Mar, [facility] [place] [facility] [address] [id number] [place] [address]- 8558 Jan, [facility] [address] [facility] [id number] [place] [address]- 3126 December, [facility] [address] [facility] [id number] [place] [address]- 2546 Oct, [facility] [address] [facility] [id number] [place] [address]- 5436 Sep, IMMUNIZATIONS No Known Immunizations SOCIAL HISTORY Never Assessed REASON FOR VISIT [facility] 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 PLAN OF CARE Activity Details Follow Up prn Reason: VITAL SIGNS MEDICATIONS Unknown Medications RESULTS No Results PROCEDURES Procedure Date Ordered Result Body Site PULMONARY FUNCTION TEST (IN-HOUSE) 2017-10-12 Normal NEB/MDI DEMO October 12, 2017 SPIROMETRY October 12, 2017 INSTRUCTIONS MEDICATIONS ADMINISTERED No Known Medications MEDICAL (GENERAL) HISTORY Type Description Date Medical History type II diabetes Medical History hyperlipidemia Medical History hypertension Medical History chronic pain back/knees Surgical History right knee arthroscopy 1994 Surgical History heart cath, 2010--clear Surgical History left knee arthroscopy 2010 Surgical History back surgery with rods 12/2016 Hospitalization History surgeries Hospitalization History [facility] ED- Back/Left Side Pain 06/06/2017 Hospitalization History [facility] ED- Congested, cough and SOB 11/07/2017
--- OUTSIDE RECORDS SUMMARY | 2018-04-20 16:07 | XMS REPORT ---
Author Author NISHI PALENCIA Organization [facility] Address [address] [place] [address] Care Team Providers Care Production Crew Supervisor Name Role Phone NISHI PALENCIA Unavailable PROBLEMS Type Condition ICD9-CM Code IVU14-TB Code Onset Dates Condition Status SNOMED Code Problem Type 2 diabetes mellitus with hyperglycemia E11.65 Active 097113865 Problem Lumbago with sciatica, left side M54.42 Active 131404540 Problem Controlled type 2 diabetes mellitus without complication, without long -term current use of insulin E11.9 Active 537718512 Problem Type 2 diabetes mellitus with diabetic neuropathy, unspecified E11.40 Active 51308825 Problem Diabetes type 2, controlled E11.9 Active 65297670 Problem Diabetic mononeuropathy associated with type 2 diabetes mellitus E11.41 Active 310153811 Problem Neuropathy G62.9 Active 152083839 Problem Type 2 diabetes mellitus without complications E11.9 Active 344824432 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 Active 086171575 Problem Slow transit constipation K59.01 Active 16532011 Problem Other chronic pain G89.29 Active [id number] ALLERGIES No Known Allergies ENCOUNTERS Encounter Location Date Diagnosis [place] [id number], [place] [address] Jan, [facility] [id number] [place] [address] 38549- 8615 December, [place] [address] [place] [address] 90504- 0703 December, Seborrheic keratoses L82.1 [facility] [address] [place] [address] 98980- 5075 December, Seborrheic keratoses L82.1 [place] [id number] [place] [address] 74359- 2214 December, [facility] [address], [place] [address] 0204 December, [facility] [id number] [place] [address] 68332- 1020 December, BMI 40.0-44.9, adult Z68.41 [facility] [id number] [place] [address] 80415- 9109 December, [facility] [id number] [place] [address] 01325- 4366 December, [facility] [id number] [place] [address] 91450- 5127 Nov, [facility] [id number] [place] [address] 15802- 4868 Nov, [facility] [id number] [place] [address] 26321- 4308 Nov, Seborrheic keratoses L82.1 [facility] [id number] [place] [address] 06399- 6692 Nov, Renal insufficiency N28.9 [facility] [id number] [place] [address] 64370- 1696 Nov, [facility] [id number] [place] [address] 56754- 9092 Nov, [facility] [id number] [place] [address] 27434- 2482 Nov, [facility] [address] [place] [address] 86046- 3853 Nov, Type 2 diabetes mellitus with diabetic neuropathy, unspecified E11.40 ; Other chronic pain G89.29 ; Bronchitis J40 ; Renal cyst N28.1 ; Pain of left foot M79.672 and Pain in right foot M79.671 [facility] [id number] [place] [address] 16738- 8888 Oct, Type 2 diabetes mellitus without complications E11.9 [place] [address], [place] [address] 4411 Oct, SOB (shortness of breath) R06.02 [place] [address] [place] [address] 77960- 4172 Oct, SOB (shortness of breath) R06.02 [place] [id number] [place] [address] 73184- 3305 Sep, Type 2 diabetes mellitus without complications E11.9 [place] [address] [place] [address] 35339- 3223 Sep, Left flank pain R10.9 [place] [address] [place] [address] 96972- 5683 Sep, BMI 40.0-44.9, adult Z68.41 ; Left flank pain R10.9 and Seborrheic keratoses L82.1 [place] [address] [place] [address] 61471- 1581 Aug, Type 2 diabetes mellitus without complications E11.9 [place] [address] [place] [address] 15543- 1345 Jul, Type 2 diabetes mellitus without complications E11.9 and Abdominal pain, left lower quadrant R10.32 [facility] [address] [place] [id number] [place] [address] Jun, [place] [address] [place] [address] 02999- 5423 Jun, Type 2 diabetes mellitus without complications E11.9 [place] [address] [place] [address] 10539- 6629 Jun, Controlled type 2 diabetes mellitus without complication, without long-term current use of insulin E11.9 and Seborrheic keratoses L82.1 [facility] [address] [place] [address] 86583 -9732 May, Acute back pain M54.9 [place] [address], [place] [address] 7436 13 May, 2017 Type 2 diabetes mellitus without complications E11.9 [facility] [address], [place] [address] 2439 28 Apr, 2017 Diabetes type 2, controlled E11.9 ; Lumbago with sciatica, left side M54.42 and Diabetic mononeuropathy associated with type 2 diabetes mellitus E11.41 [place] [address], [place] [address] 2043 18 Apr, 2017 Type 2 diabetes mellitus without complications E11.9 [place] [id number] [place] [address] 19926- 1750 05 Apr, 2017 [place] [address] [place] [address] 51474- 6547 Mar, Type 2 diabetes mellitus without complications E11.9 [place] [address], [place] [address] 7675 Feb, Controlled type 2 diabetes mellitus without complication, without long-term current use of insulin E11.9 ; Neuropathy G62.9 and Onychomycosis B35.1 [place] [address], [place] [address] 2889 Jan, Type 2 diabetes mellitus with diabetic neuropathy, unspecified E11.40 [place] [address], [place] [address] 7456 Jan, Type 2 diabetes mellitus with diabetic neuropathy, unspecified E11.40 [place] [address], [place] [address] 0822 December, Type 2 diabetes mellitus without complications E11.9 [place] [address], [place] [address] 3174 December, Slow transit constipation K59.01 and Pain in right hip M25.551 [place] [address] [place] [address] 92335- 1480 Nov, Type 2 diabetes mellitus without complications E11.9 [facility] [address] [place] [address] 64429- 6450 Oct, Lumbago with sciatica, left side M54.42 and Other chronic pain G89.29 [facility] [address] [place] [address] 05501- 3729 Sep, Diabetes mellitus E11.9 ; Lumbago with sciatica, left side M54.42 and Type 2 diabetes mellitus without complications E11.9 [place] [address] [place] [address] 74059- 7787 Aug, Type 2 diabetes mellitus without complications E11.9 and 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 [facility] [id number] [place] [address] [id number] Aug, Dental examination Z01.20 [facility] [id number] [place] [address] [id number] Aug, Dental examination Z01.20 [facility] [id number] [place] [address] 37950 -5914 Aug, Dental abscess K04.7 [facility] [id number] [place] [address] 59859- 1163 Jul, Type 2 diabetes mellitus with hyperglycemia E11.65 and 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 [facility] [address] [place] [address] 78064- 2181 Jul, [facility] [address] [place] [address] 25536- 3623 Jul, Type 2 diabetes mellitus with diabetic neuropathy, unspecified E11.40 [facility] [address] [place] [address] 49417- 2192 Jun, Type 2 diabetes mellitus with diabetic neuropathy, unspecified E11.40 and Lumbago with sciatica, left side M54.42 [facility] [address] [place] [address] 97110- 3251 May, Controlled type 2 diabetes mellitus without complication, without long-term current use of insulin E11.9 [place] [address] [place] [address] 48024- 6999 Apr, Controlled type 2 diabetes mellitus without complication, without long-term current use of insulin E11.9 and Lumbar neuritis M54.16 [place] [address] [place] [address] 94192- 7380 Mar, [place] [address] [place] [address] 37091- 4862 Mar, Other chronic pain G89.29 ; Pain in left knee M25.562 ; Sciatica, left side M54.32 ; Pain in left hip M25.552 ; Type 2 diabetes mellitus with hyperglycemia E11.65 ; 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 and Mood disorder F39 [place] [address] [place] [address] 31047- 5096 December, Diabetes type 2, controlled E11.9 [place] [address] [place] [address] 56280- 6944 December, Diabetes type 2, controlled E11.9 [place] [address] [place] [address] 72451- 8553 Oct, Shoulder pain, right M25.511 and Knee pain, right M25.561 [place] [address] [place] [address] 16946- 9631 Oct, Knee pain, left M25.562 [place] [address] [place] [address] 39375- 3068 Sep, Diabetes mellitus E11.9 and Knee pain M25.569 [place] [address] [place] [address] 75736- 2536 Sep, [place] [address] [place] [address] 67596- 3621 Jun, Type 2 diabetes mellitus with diabetic neuropathy, unspecified E11.40 and Type 2 diabetes mellitus with hyperglycemia E11.65 [facility] [address] [place] [address] 083297- 5072 May, Diabetes mellitus E11.9 [facility] [address] [place] [address] 305352- 1996 May, Diabetes mellitus E11.9 and Lumbago with sciatica, left side M54.42 [facility] [address] [place] [address] 508907- 0137 Jan, Osteoarthritis of knees, bilateral 715.96 [facility] [id number] [place] [address] 57523- 2526 December, [facility] [id number] [place] [address] 25831- 6526 December, Knee pain, bilateral 719.46 [facility] [address] [place] [address] 19020- 7243 Nov, Knee pain, bilateral 719.46 [facility] [id number] [place] [address] 78494- 8727 Nov, [facility] [id number] [place] [address] 16658- 9752 Nov, [facility] [id number] [place] [address] 70048- 0171 Oct, [facility] [id number] [place] [address] 38443- 7007 Oct, [facility] [id number] [place] [address] 19384- 1185 Aug, [facility] [id number] [place] [address] 85715- 0456 Aug, [facility] [address] [place] [address] 36937- 7006 Jul, [facility] [place] [facility] [address] [id number] [place] [address]- 6376 17 Jul, 2014 [facility] [place] [facility] [address] [id number] [place] [address]- 6415 Jun, [facility] [place] [facility] [address] [id number] [place] [address]- 4521 17 Jun, 2014 [facility] [place] [facility] [address] [id number] [place] [address]- 5801 15 May, 2014 [facility] [place] [facility] [address] [id number] [place] [address]- 5462 15 May, 2014 [facility] [place] [facility] [address] [id number] [place] [address]- 7976 15 Apr, 2014 [facility] [place] [facility] [address] [id number] [place] [address]- 1602 15 Apr, 2014 [facility] [place] [facility] [address] [id number] [place] [address]- 1094 08 Apr, 2014 [facility] [place] [facility] [address] [id number] [place] [address]- 6881 08 Apr, 2014 [facility] [place] [facility] [address] [id number] [place] [address]- 7688 16 Feb, 2014 [facility] [place] [facility] [address] [id number] [place] [address]- 5559 Feb, [facility] [place] [facility] [address] [id number] [place] [address]- 1157 December, [facility] [place] [facility] [address] [id number] [place] [address]- 6975 December, [facility] [place] [facility] [address] [id number] [place] [address]- 5252 December, [facility] [place] [facility] [address] [id number] [place] [address]- 9509 December, [facility] [place] [facility] [address] [id number] [place] [address]- 2116 Nov, [facility] [place] [facility] [address] [id number] [place] [address]- 2561 Nov, [facility] [place] [facility] [address] [id number] [place] [address]- 4656 Oct, [facility] [place] [facility] [address] [id number] [place] [address] 2546 Oct, [facility] [place] [facility] [address] [id number] [place] [address]- 4107 Aug, [facility] [place] [facility] [address] [id number] [place] [address]- 1714 Aug, [facility] [place] [facility] [address] [id number] [place] [address]- 6067 Jul, [facility] [place] [facility] [address] [id number] [place] [address]- 8046 Jul, [facility] [place] [facility] [address] [id number] [place] [address]- 4026 May, [facility] [place] [facility] [address] [id number] [place] [address]- 7829 Jan, [facility] [place] [facility] [address] [id number] [place] [address]- 0946 Jan, [facility] [place] [facility] [address] [id number] [place] [address]- 6156 December, [facility] [place] [facility] [address] [id number] [place] [address]- 2546 Nov, [facility] [place] [facility] [address] [id number] [place] [address]- 2546 Oct, [facility] [place] [facility] [address] [id number] [place] [address] 2546 Oct, [facility] [place] [facility] [address] [id number] [place] [address]- 2546 Oct, [facility] [place] [facility] [address] [id number] [place] [address]- 3646 11 Oct, 2012 [facility] [address] [id number] [place] [address]- 6935 07 Oct, 2012 [facility] [place] [facility] [address] [id number] [place] [address]- 8376 07 Oct, 2012 [facility] [address] [id number] [place] [address]- 1387 07 Sep, 2012 [facility] [address] [id number] [place] [address]- 2753 Jul, [facility] [address] [id number] [place] [address]- 9251 Jul, [facility] [address] [id number] [place] [address]- 9453 Jul, [facility] [address] [id number] [place] [address]- 3569 Jun, [facility] [address] [id number] [place] [address]- 4245 Jun, [facility] [address] [id number] [place] [address]- 1621 Jun, [facility] [address] [id number] [place] [address]- 6533 Jun, [facility] [address] [id number] [place] [address]- 1878 Mar, [facility] [address] [id number] [place] [address]- 4484 Mar, [facility] [place] [facility] [address] [id number] [place] [address]- 6578 Feb, [facility] [place] [facility] [address] [id number] [place] [address]- 9786 Feb, [facility] [address] [id number] [place] [address]- 7490 December, [facility] [id number], [place] [address]- 2546 December, [facility] [id number], [place] [address]- 2546 Nov, [facility] [id number], [place] [address]- 2546 Oct, [facility] [address], [place] [address]- 2546 Oct, [facility] [address] [facility] [id number] [address]- 2546 Jul, [facility] [address], [place] [address]- 2546 Sep, [facility] [address], [place] [address]- 2546 Jul, [facility] [address], [place] [address]- 2546 Jan, [facility] [id number], [place] [address]- 2546 Jun, [facility] [id number], [place] [address]- 2546 Mar, [facility] [id number], [place] [address]- 2546 Jan, [facility] [id number], [place] [address]- 2546 December, [facility] [id number], [place] [address]- 2546 Oct, [facility] [id number], [place] [address]- 1776 Sep, IMMUNIZATIONS No Known Immunizations SOCIAL HISTORY Never Assessed REASON FOR VISIT DIABETES, PT was seen in walk in for pain and its not working. PT then went out to the ER and got prednison which seemed to help-Braulio FAITH PLAN OF CARE VITAL SIGNS Height 67 in 2017-06-10 Weight 271.1 lbs 2017-06-10 Temperature 97.9 degrees Fahrenheit 2017-06-10 Heart Rate 80 bpm 2017-06-10 Respiratory Rate 18 2017-06-10 BMI 42.46 kg/m2 2017-06-10 Blood pressure systolic 140 mmHg 2017-06-10 Blood pressure diastolic 80 mmHg 2017-06-10 MEDICATIONS Medication Instructions Dosage Frequency Start Date End Date Duration Status Levemir FlexTouch 100 UNIT/ML Subcutaneous Once a day 90 units 24h May, Active PredniSONE 20 MG Orally Once a day 1 tablet 24h Active Naproxen 500 MG Orally every 12 hrs 1 tablet with food or milk as needed 12h 27 May, 2017 Jun, 15 days Active Neurontin 800 MG Orally Three times a day 1 capsule 8h Feb, Active Aspirin 325 MG Orally Once a day 1 tablet 24h Active Lyrica 75 MG Orally Twice a day 1 capsule 12h Jan, 30 days Active Oxycodone-Acetaminophen 10-325 MG Orally every 6 hrs 1 tablet as needed 6h May, 28 days Active Lipitor 20 mg Orally Once a day 1 tablet 24h May, Active Lisinopril 40 mg Orally Once a day 1 tablet 24h May, Active Metformin HCl 1000 MG Orally Twice a day 1 tablet with meals 12h May, Active BD Pen Needle Ultrafine 29G X 12.7MM Inject 6h May, Active Humalog KwikPen 100 UNIT/ML Subcutaneous 3 times a day 30 units 8h December, Active RESULTS Name Result Date Reference Range MICROALBUMIN, URINE (IN HOUSE) 2017-06-10 MICROALBUMIN normal Lot # [id number] Exp date 04/2018 Clarity clear Color yellow ALB 30 CRE 200 A:C (IN HOUSE) <30 Control normal Control Lot # Exp date PROCEDURES Procedure Date Ordered Result Body Site CRYOTHERAPY OF SKIN 2017-06-10 N/A MICROALBUMIN, SEMIQUANT Jun 10, 2017 [facility] VISIT ESTABLISHED PATIENT Jun 10, 2017 CRYOTHERAPY OF SKIN Jun 10, 2017 INSTRUCTIONS MEDICATIONS ADMINISTERED No Known Medications MEDICAL (GENERAL) HISTORY Type Description Date Medical History type II diabetes Medical History hyperlipidemia Medical History hypertension Medical History chronic pain back/knees Surgical History right knee arthroscopy 1994 Surgical History heart cath, 2010--clear Surgical History left knee arthroscopy 2010 Surgical History back surgery with rods 12/2016 Hospitalization History surgeries Hospitalization History [facility]- Back/Left Side Pain 06/06/2017 Hospitalization History [facility] ED- Congested, cough and SOB 11/07/2017
--- OUTSIDE RECORDS SUMMARY | 2018-04-20 16:07 | XMS REPORT ---
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 Active 592750358 Problem Type 2 diabetes mellitus with diabetic neuropathy, unspecified E11.40 Active 94886351 Problem Diabetes type 2, controlled E11.9 Active 59472286 Problem Type 2 diabetes mellitus with hyperglycemia E11.65 Active 363713208 Problem Controlled type 2 diabetes mellitus without complication, without long -term current use of insulin E11.9 Active 605244887 Problem Chronic fatigue R53.82 Active 26753789 Problem Mood disorder F39 Active 37597841 Problem Slow transit constipation K59.01 Active 34632859 Problem Other chronic pain G89.29 Active 70371163 Problem Diabetic mononeuropathy associated with type 2 diabetes mellitus E11.41 Active 179590058 Problem Neuropathy G62.9 Active 596052301 ALLERGIES No Information ENCOUNTERS Encounter Location Date Diagnosis [id number], [place] [address] Mar, [place] [id number], [place] [address] Feb, Type 2 diabetes mellitus with diabetic neuropathy, unspecified E11.40 ; Renal insufficiency N28.9 and Chronic fatigue R53.82 [facility] [id number], [place] [address] Jan, Pneumonia of both lower lobes due to infectious organism J18.1 and Mood disorder F39 [id number] [place] [address] 09739- 7577 Jan, BMI 40.0-44.9, adult Z68.41 [facility] [id number] [place] [address] 98008- 8215 Jan, [facility] [id number] [place] [address] 21817- 9744 Jan, [facility] [id number] [place] [address] 00289 -5090 Jan, Wheezes R06.2 ; Diabetes type 2, controlled E11.9 and Pneumonia of right lower lobe due to infectious organism J18.1 [facility] [id number] [place] [address] 48668- 7421 Jan, Renal insufficiency N28.9 [facility] [id number] [place] [address] 72037- 5298 Jan, Seborrheic keratoses L82.1 [facility] [id number] [place] [address] 43777- 3296 Jan, [facility] [id number] [place] [address] 95136- 2543 Jan, [facility] [id number] [place] [address] 06136- 0977 Jan, Renal insufficiency N28.9 [facility] [id number] [place] [address] 15297- 4297 Jan, [facility] [id number] [place] [address] 90518- 6926 Jan, Diabetes type 2, controlled E11.9 ; Mood disorder F39 and BMI 40.0-44.9, adult Z68.41 [facility] [id number] [place] [address] 77752- 6235 Jan, BMI 40.0-44.9, adult Z68.41 [facility] [id number] [place] [address] 11912- 5468 December, [facility] [address] [place] [address] 0807 December, [facility] [address], [place] [address] 1906 December, Seborrheic keratoses L82.1 [facility] [id number] [address]- 8736 December, Seborrheic keratoses L82.1 [facility] [address], [place] [address]- 5451 December, [facility] [id number] [place] [address] 01765- 1608 December, [facility] [id number] [place] [address] 27846- 5976 December, BMI 40.0-44.9, adult Z68.41 [facility] [address], [place] [address]- 0334 December, [facility] [address], [place] [address]- 7570 December, [facility] [address], [place] [address]- 0314 Nov, [facility] [address], [place] [address]- 8261 Nov, [facility] [address], [place] [address]- 1127 Nov, Seborrheic keratoses L82.1 [facility] [address], [place] [address]- 2619 Nov, Renal insufficiency N28.9 [facility] [address], [place] [address]- 8268 Nov, [facility] [address], [place] [address]- 6279 Nov, [place] [address], [place] [address]- 5825 Nov, [place] [id number] [place] [address] 23799- 6781 Nov, Type 2 diabetes mellitus with diabetic neuropathy, unspecified E11.40 ; Other chronic pain G89.29 ; Bronchitis J40 ; Renal cyst N28.1 ; Pain of left foot M79.672 and Pain in right foot M79.671 [place] [address], [place] [address]- 0794 Oct, Type 2 diabetes mellitus without complications E11.9 [place] [id number] [place] [address] 62211- 6264 Oct, SOB (shortness of breath) R06.02 [place] [address] [place] [address] 46960- 3544 Oct, SOB (shortness of breath) R06.02 [place] [address] [place] [address] 40433- 1588 Sep, Type 2 diabetes mellitus without complications E11.9 [place] [address] [place] [address] 46321- 0334 Sep, Left flank pain R10.9 [place] [address] [place] [address] 99053- 2605 Sep, BMI 40.0-44.9, adult Z68.41 ; Left flank pain R10.9 and Seborrheic keratoses L82.1 [place] [address] [place] [address] 81878- 4657 Aug, Type 2 diabetes mellitus without complications E11.9 [place] [address], [place] [address]- 3256 Jul, Type 2 diabetes mellitus without complications E11.9 and Abdominal pain, left lower quadrant R10.32 [facility] [address] [id number] [address] Jun, [place] [address] [place] [address] 01095- 1239 Jun, Type 2 diabetes mellitus without complications E11.9 [facility] [address], [place] [address]- 0157 02 Jun, 2017 Controlled type 2 diabetes mellitus without complication, without long-term current use of insulin E11.9 and Seborrheic keratoses L82.1 [facility] [address], [place] [address] May, Acute back pain M54.9 [place] [id number] [place] [address] 76983- 2786 13 May, 2017 Type 2 diabetes mellitus without complications E11.9 [place] [id number] [place] [address] 95929- 9663 28 Apr, 2017 Diabetes type 2, controlled E11.9 ; Lumbago with sciatica, left side M54.42 and Diabetic mononeuropathy associated with type 2 diabetes mellitus E11.41 [place] [address] [place] [address] 96251- 4146 18 Apr, 2017 Type 2 diabetes mellitus without complications E11.9 [place] [address], [place] [address]- 8686 05 Apr, 2017 [facility] [address] [place] [address] 49433- 8606 Mar, Type 2 diabetes mellitus without complications E11.9 [facility] [address], [place] [address]- 6147 14 Feb, 2017 Controlled type 2 diabetes mellitus without complication, without long-term current use of insulin E11.9 ; Neuropathy G62.9 and Onychomycosis B35.1 [facility] [address], [place] [address]- 7000 15 Jan, 2017 Type 2 diabetes mellitus with diabetic neuropathy, unspecified E11.40 [place] [address] [place] [address] 31073- 8423 Jan, Type 2 diabetes mellitus with diabetic neuropathy, unspecified E11.40 [place] [id number] [place] [address] 68070- 9072 December, Type 2 diabetes mellitus without complications E11.9 [place] [id number] [place] [address] 32465- 2946 December, Slow transit constipation K59.01 and Pain in right hip M25.551 [place] [id number] [place] [address] 71634- 9411 Nov, Type 2 diabetes mellitus without complications E11.9 [place] [id number] [place] [address] 07845- 6437 Oct, Lumbago with sciatica, left side M54.42 and Other chronic pain G89.29 [place] [id number] [place] [address] 31914- 8197 Sep, Diabetes mellitus E11.9 ; Lumbago with sciatica, left side M54.42 and Type 2 diabetes mellitus without complications E11.9 [place] [id number] [place] [address] 80976- 2437 Aug, Type 2 diabetes mellitus without complications E11.9 and [facility] 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 [facility] [id number] [place] [address] [id number] Aug, Dental examination Z01.20 [facility] [id number] [place] [address] [id number] Aug, Dental examination Z01.20 [facility] [id number] [place] [address] 50493 -7877 Aug, Dental abscess K04.7 [facility] [id number] [place] [address] 63237- 2204 Jul, Type 2 diabetes mellitus with hyperglycemia E11.65 and [facility] 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 [place] [address] [place] [address] 09406- 1514 Jul, [place] [id number] [place] [address] 79292- 4950 Jul, Type 2 diabetes mellitus with diabetic neuropathy, unspecified E11.40 [place] [id number] [place] [address] 36449- 9611 Jun, Type 2 diabetes mellitus with diabetic neuropathy, unspecified E11.40 and Lumbago with sciatica, left side M54.42 [place] [id number] [place] [address] 04639- 0420 May, Controlled type 2 diabetes mellitus without complication, without long-term current use of insulin E11.9 [place] [id number] [place] [address] 91318- 2798 Apr, Controlled type 2 diabetes mellitus without complication, without long-term current use of insulin E11.9 and Lumbar neuritis M54.16 [place] [id number] [place] [address] 97363- 9481 Mar, [place] [id number] [place] [address] 39441- 8279 Mar, Other chronic pain G89.29 ; Pain in left knee M25.562 ; Sciatica, left side M54.32 ; Pain in left hip M25.552 ; Type 2 diabetes mellitus with hyperglycemia E11.65 ; [facility] 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 and Mood disorder F39 [place] [address], [place] [address]- 0892 December, Diabetes type 2, controlled E11.9 [place] [id number] [place] [address] 17846- 9219 December, Diabetes type 2, controlled E11.9 [place] [id number] [place] [address] 58452- 3694 Oct, Shoulder pain, right M25.511 and Knee pain, right M25.561 [facility] [address], [place] [address]- 3233 Oct, Knee pain, left M25.562 [facility] [id number] [place] [address] 20352- 9011 Sep, Diabetes mellitus E11.9 and Knee pain M25.569 [facility] [id number] [place] [address] 13388- 8437 Sep, [facility] [id number] [place] [address] 97057- 2563 Jun, Type 2 diabetes mellitus with diabetic neuropathy, unspecified E11.40 and Type 2 diabetes mellitus with hyperglycemia E11.65 [facility] [id number] [place] [address] 41211- 0427 May, Diabetes mellitus E11.9 [facility] [id number] [place] [address] 63237- 8119 May, Diabetes mellitus E11.9 and Lumbago with sciatica, left side M54.42 [facility] [id number] [place] [address] 04156- 9257 Jan, Osteoarthritis of knees, bilateral 715.96 [facility] [address], [place] [address]- 4584 December, [facility] [id number] [place] [address] 29125- 3656 December, Knee pain, bilateral 719.46 [facility] [id number] [place] [address] 08575- 4527 Nov, Knee pain, bilateral 719.46 [facility] [id number] [place] [address] 40579- 6922 Nov, [facility] [address], [place] [address]- 6183 Nov, [facility] [id number] [place] [address]- 7156 13 Oct, 2014 [facility] [address] [id number] [place] [address]- 2079 13 Oct, 2014 [facility] [place] [facility] [address] [id number] [place] [address]- 4681 Aug, [facility] [address] [id number] [place] [address]- 4476 Aug, [facility] [place] [facility] [address] [id number] [place] [address]- 4878 Jul, [facility] [address] [id number] [place] [address]- 9893 Jul, [facility] [place] [facility] [address] [id number] [place] [address]- 1533 Jun, [facility] [place] [facility] [address] [id number] [place] [address]- 6187 17 Jun, 2014 [facility] [place] [facility] [address] [id number] [place] [address]- 6628 15 May, 2014 [facility] [place] [facility] [address] [id number] [place] [address]- 2040 15 May, 2014 [facility] [place] [facility] [address] [id number] [place] [address]- 7591 15 Apr, 2014 [facility] [place] [facility] [address] [id number] [place] [address]- 5928 15 Apr, 2014 [facility] [place] [facility] [address] [id number] [place] [address]- 5706 08 Apr, 2014 [facility] [place] [facility] [address] [id number] [place] [address]- 0453 08 Apr, 2014 [facility] [place] [facility] [address] [id number] [place] [address]- 7536 16 Feb, 2014 [facility] [place] [facility] [address] [id number] [place] [address]- 5769 Feb, [facility] [address] [id number] [place] [address]- 1674 December, [facility] [place] [facility] [address] [id number] [place] [address]- 5396 December, [facility] [place] [facility] [address] [id number] [place] [address]- 9806 December, [facility] [place] [facility] [address] [id number] [place] [address]- 6786 December, [facility] [place] [facility] [address] [id number] [place] [address]- 0260 Nov, [facility] [place] [facility] [address] [id number] [place] [address]- 7546 Nov, [facility] [place] [facility] [address] [id number] [place] [address]- 9307 Oct, [facility] [place] [facility] [address] [id number] [place] [address]- 5097 Oct, [facility] [place] [facility] [address] [id number] [place] [address]- 3356 Aug, [facility] [place] [facility] [address] [id number] [place] [address]- 3551 Aug, [facility] [place] [facility] [address] [id number] [place] [address]- 9926 Jul, [facility] [place] [facility] [address] [id number], [place] [address]- 3006 Jul, [facility] [place] [facility] [address] [id number] [place] [address]- 0316 May, [facility] [place] [facility] [address] [id number] [place] [address]- 4736 Jan, [facility] [place] [facility] [address] [id number] [address]- 2616 Jan, [facility] [place] [facility] [address] [id number], [place] [address]- 1200 December, [facility] [address] [id number] [place] [address]- 8027 Nov, [facility] [place] [facility] [address] [id number] [place] [address]- 0154 25 Oct, 2012 [facility] [address] [facility] [id number] [place] [address]- 7590 19 Oct, 2012 [facility] [place] [facility] [address] [id number] [place] [address]- 0544 14 Oct, 2012 [facility] [address] [id number] [place] [address]- 0283 11 Oct, 2012 [facility] [address] [facility] [id number] [place] [address]- 1245 07 Oct, 2012 [facility] [address] [facility] [id number] [place] [address]- 6478 07 Oct, 2012 [facility] [place] [facility] [address] [facility] [id number] [place] [address]- 1189 07 Sep, 2012 [facility] [address] [facility] [id number] [place] [address]- 3645 Jul, [facility] [address] [facility] [id number] [place] [address]- 6714 Jul, [facility] [address] [facility] [id number] [place] [address]- 1086 Jul, [facility] [place] [facility] [address] [id number] [place] [address]- 4928 Jun, [facility] [place] [facility] [address] [id number] [place] [address]- 3822 Jun, [facility] [place] [facility] [address] [facility] [id number] [place] [address]- 4292 29 Jun, 2012 [facility] [place] [facility] [address] [facility] [id number] [place] [address]- 4391 Jun, [facility] [place] [facility] [address] [id number] [place] [address] 2546 Mar, [facility] [place] [facility] [address] [id number] [place] [address]- 4074 Mar, [facility] [place] [facility] [address] [id number] [place] [address] 2546 Feb, [facility] [place] [facility] [address] [id number] [place] [address]- 5661 Feb, [facility] [place] [facility] [address] [id number] [place] [address]- 7496 December, [facility] [place] [facility] [address] [id number] [place] [address]- 7816 December, [facility] [place] [facility] [address] [id number] [place] [address]- 8112 Nov, [facility] [place] [facility] [address] [id number] [place] [address]- 8996 Oct, [facility] [place] [facility] [address] [id number] [place] [address]- 7300 Oct, [facility] [place] [facility] [address] [id number] [place] [address]- 6949 Jul, [facility] [place] [facility] [address] [id number] [place] [address]- 4136 Sep, [facility] [place] [facility] [address] [id number] [place] [address]- 1406 Jul, [facility] [place] [facility] [address] [id number] [place] [address]- 0302 Jan, [facility] [place] [facility] [address] [id number] [place] [address]- 8056 Jun, [facility] [place] [facility] [address] [id number] [place] [address]- 2546 Mar, [facility] [place] [facility] [address] [id number] [place] [address]- 7972 Jan, [facility] [address] [facility] [id number] [place] [address]- 2889 December, [facility] [address] [facility] [id number], [place] [address]- 5116 Oct, [facility] [address] [facility] [id number] [place] [address]- 1356 Sep, IMMUNIZATIONS No Known Immunizations SOCIAL HISTORY Never Assessed REASON FOR VISIT PLAN OF CARE VITAL SIGNS MEDICATIONS Medication Instructions Dosage Frequency Start Date End Date Duration Status ProAir HFA 108 (90 Base) MCG/ACT Inhalation every 6 hrs 2 puffs as needed 6h Oct, Active RESULTS No Results PROCEDURES Procedure Date Ordered Result Body Site SPIROMETRY October 11, 2017 INSTRUCTIONS MEDICATIONS ADMINISTERED No Known Medications [...]
--- OUTSIDE RECORDS SUMMARY | 2018-04-20 16:08 | XMS REPORT ---
Author Author NISHI PALENCIA Organization [facility] Address [address] [place] [address] Care Team Providers Care Manager Apple Name Role Phone NISHI PALENCIA Unavailable PROBLEMS Type Condition ICD9-CM Code [id number] Code Onset Dates Condition Status SNOMED Code Problem Type 2 diabetes mellitus with hyperglycemia E11.65 Active 666463127 Problem Lumbago with sciatica, left side M54.42 Active 928031887 Problem Controlled type 2 diabetes mellitus without complication, without long -term current use of insulin E11.9 Active 780174881 Problem Type 2 diabetes mellitus with diabetic neuropathy, unspecified E11.40 Active 51739293 Problem Diabetes type 2, controlled E11.9 Active 68860274 Problem Diabetic mononeuropathy associated with type 2 diabetes mellitus E11.41 Active 364865787 Problem Neuropathy G62.9 Active 010275757 Problem Type 2 diabetes mellitus without complications E11.9 Active 700259885 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 633605211 Problem Slow transit constipation K59.01 Active 74161909 Problem Other chronic pain G89.29 Active 61226632 ALLERGIES No Known Allergies ENCOUNTERS Encounter Location Date Diagnosis [place] [id number] [place] [address] 76071- 4585 Nov, [place] [address] [place] [id number] [place] [address] 90532- 4495 Oct, Type 2 diabetes mellitus without complications E11.9 [place] [address] [place] [id number] [place] [address] 17773- 9114 Oct, SOB (shortness of breath) R06.02 [place] [address] [place] [id number] [place] [address] 92676- 2327 Oct, SOB (shortness of breath) R06.02 [place] [address] [place] [id number] [place] [address] 60910- 5023 Sep, Type 2 diabetes mellitus without complications E11.9 [facility] [id number] [place] [address] 02151- 9816 12 Sep, 2017 Left flank pain R10.9 [facility] [id number] [place] [address] 41715- 8849 Sep, BMI 40.0-44.9, adult Z68.41 ; Left flank pain R10.9 and Seborrheic keratoses L82.1 [facility] [address] [address] 7[address] Aug, Type 2 diabetes mellitus without complications E11.9 [facility] [id number] [place] [address] 70277- 6599 Jul, Type 2 diabetes mellitus without complications E11.9 and Abdominal pain, left lower quadrant R10.32 [facility] [address] [id number] [address] Jun, [facility] [id number] [place] [address] 31489- 4649 Jun, Type 2 diabetes mellitus without complications E11.9 [facility] [address] [address] Jun, Controlled type 2 diabetes mellitus without complication, without long-term current use of insulin E11.9 and Seborrheic keratoses L82.1 [facility] [address], [place] [address] May, Acute back pain M54.9 [facility] [id number] [place] [address] 57907- 0426 13 May, 2017 Type 2 diabetes mellitus without complications E11.9 [facility] [address] [address] 0[address] 28 Apr, 2017 Diabetes type 2, controlled E11.9 ; Lumbago with sciatica, left side M54.42 and Diabetic mononeuropathy associated with type 2 diabetes mellitus E11.41 [place] [address], [place] [address] 18 Apr, 2017 Type 2 diabetes mellitus without complications E11.9 [place] [address] [address] 9704 05 Apr, 2017 [place] [address] [place] [address] [id number] [place] [address] 75272- 0889 Mar, Type 2 diabetes mellitus without complications E11.9 [place] [address] [address] [id number] [place] [address] 10020- 0552 Feb, Controlled type 2 diabetes mellitus without complication, without long-term current use of insulin E11.9 ; Neuropathy G62.9 and Onychomycosis B35.1 [place] [address] [id number] [place] [address] 98225- 0612 Jan, Type 2 diabetes mellitus with diabetic neuropathy, unspecified E11.40 [place] [address] [id number] [address] 6036 Jan, Type 2 diabetes mellitus with diabetic neuropathy, unspecified E11.40 [place] [address] [id number] [place] [address] 96092- 4266 December, Type 2 diabetes mellitus without complications E11.9 [place] [address], [place] [address] 7192 December, Slow transit constipation K59.01 and Pain in right hip M25.551 [place] [address] [id number] [address] 5632 Nov, Type 2 diabetes mellitus without complications E11.9 [place] [address] [place] [address] [id number] [place] [address] 47287- 4138 Oct, Lumbago with sciatica, left side M54.42 and Other chronic pain G89.29 [place] [address] [place] [id number] [address] 3597 Sep, Diabetes mellitus E11.9 ; Lumbago with sciatica, left side M54.42 and Type 2 diabetes mellitus without complications E11.9 [facility] [id number] [place] [address] 95792- 0474 Aug, Type 2 diabetes mellitus without complications E11.9 and 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 [facility] [address] [id number] [place] [address] [id number] Aug, Dental examination Z01.20 [facility] [address] [id number] [place] [address] [id number] Aug, Dental examination Z01.20 [facility] [address] [address] Aug, Dental abscess K04.7 [facility] [address] 35186- 5869 Jul, Type 2 diabetes mellitus with hyperglycemia E11.65 and MCFP 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 [facility] [address] [place] [id number] [place] [address] 98864- 7310 Jul, [place] [address] 32027- 4931 Jul, Type 2 diabetes mellitus with diabetic neuropathy, unspecified E11.40 [facility] [address] [place] [id number] [place] [address] 41089- 0000 Jun, Type 2 diabetes mellitus with diabetic neuropathy, unspecified E11.40 and Lumbago with sciatica, left side M54.42 [facility] [address] [id number] [place] [address] 60867- 0846 07 May, 2016 Controlled type 2 diabetes mellitus without complication, without long-term current use of insulin E11.9 [facility] [address] [place] [id number] [place] [address] 67462- 4045 08 Apr, 2016 Controlled type 2 diabetes mellitus without complication, without long-term current use of insulin E11.9 and Lumbar neuritis M54.16 [place] [address] [place] [address] [address] 5257 Mar, [place] [address] [place] [id number] [place] [address] 13621- 9393 Mar, Other chronic pain G89.29 ; Pain in left knee M25.562 ; Sciatica, left side M54.32 ; Pain in left hip M25.552 ; Type 2 diabetes mellitus with hyperglycemia E11.65 ; [facility]FP 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 and Mood disorder F39 [place] [address] [place] [id number] [place] [address] 98818- 9583 December, Diabetes type 2, controlled E11.9 [place] [address] [place] [address] [id number] [place] [address] 88115- 1818 December, Diabetes type 2, controlled E11.9 [place] [address] [place] [address] [id number] [place] [address] 37979- 5123 Oct, Shoulder pain, right M25.511 and Knee pain, right M25.561 [place] [address] [place] [address] [id number] [place] [address] 92571- 5898 Oct, Knee pain, left M25.562 [place] [address] [place] [address] [id number] [place] [address] 75907- 3170 Sep, Diabetes mellitus E11.9 and Knee pain M25.569 [place] [address] [place] [id number] [place] [address] 15056- 2320 Sep, [place] [address] [place] [id number] [place] [address] 65231- 7027 Jun, Type 2 diabetes mellitus with diabetic neuropathy, unspecified E11.40 and Type 2 diabetes mellitus with hyperglycemia E11.65 [place] [address] [place] [id number] [place] [address] 68414- 1049 May, Diabetes mellitus E11.9 [facility] [address] [place] [id number] [place] [address] 88384- 4888 May, Diabetes mellitus E11.9 and Lumbago with sciatica, left side M54.42 [facility] [address] [address]- 8479 Jan, Osteoarthritis of knees, bilateral 715.96 [facility] [address] [address]- 4666 December, [facility] [address] [id number] 6935 December, Knee pain, bilateral 719.46 [facility] [id number] [address]- 0068 Nov, Knee pain, bilateral 719.46 [facility] [address] [place] [address] [id number] [place] [address], [place] 5856 Nov, [facility] [address] [place] [id number] [address]- 7472 Nov, [facility] [address] [place] [id number] [place] [address] 34189- 0160 Oct, [facility] [address] [address]- 1515 Oct, [facility] [address] [address]- 0503 Aug, [facility] [address] 7463 Aug, [facility] [address] [address]- 2696 Jul, [facility] [address] 3034 Jul, [facility] [address] [id number] [address]- 7916 Jun, [facility] [id number] [address]- 9756 Jun, [facility] [address] [id number] [address]- 6837 15 May, 2014 [facility] [place] [facility] [address] [id number] [place] [address]- 2723 15 May, 2014 [facility] [place] [facility] [address] [id number] [place] 6486 15 Apr, 2014 [facility] [place] [facility] [address] [id number] [place] [address]- 7514 15 Apr, 2014 [facility] [place] [facility] [address] [id number] [place] [address]- 0894 08 Apr, 2014 [facility] [place] [facility] [address] [id number] [place] [address]- 4807 Apr, [facility] [place] [facility] [address] [id number] [place] [address]- 7548 Feb, [facility] [place] [facility] [address] [id number] [place] [address]- 3590 Feb, [facility] [place] [facility] [address] [id number] [place] [address]- 5145 December, [facility] [place] [facility] [address] [id number] [place] [address]- 5907 December, [facility] [place] [facility] [address] [id number] [place] [address]- 1268 December, [facility] [place] [facility] [address] [id number] [place] [address]- 5089 December, [facility] [place] [facility] [address] [id number] [place] [address]- 0071 Nov, [facility] [place] [facility] [address] [id number] [place] [address]- 8716 Nov, [facility] [place] [facility] [address] [id number] [place] [address] Oct, [facility] [place] [facility] [address] [id number] [place] [address]- 3046 Oct, [facility] [place] [facility] [address] [id number] [place] [address] 2546 Aug, [facility] [address] [id number] [place] [address]- 5336 Aug, [facility] [address] [id number] [place] [address] 2546 Jul, [facility] [address] [id number] [place] [address] 2546 Jul, [facility] [address] [id number] [place] [address]- 2546 May, [facility] [address] [id number] [place] [address]- 9596 Jan, [facility] [address] [id number] [place] [address]- 7356 Jan, [facility] [address] [id number] [place] [address]- 4326 December, [facility] [address] [id number] [place] [address]- 4358 Nov, [facility] [address] [id number] [place] [address]- 8416 Oct, [facility] [address] [id number] [place] [address]- 7456 Oct, [facility] [address] [id number] [place] [address]- 2546 14 Oct, 2012 [facility] [address] [id number] [place] [address]- 2546 11 Oct, 2012 [facility] [address] [id number] [place] [address]- 2546 07 Oct, 2012 [facility] [address] [id number] [place] [address]- 2546 07 Oct, 2012 [facility] [address] [id number] [place] [address]- 4710 Sep, [facility] [place] [facility] [address] [id number] [place] [address]- 8609 Jul, [facility] [place] [facility] [address] [id number] [place] [address]- 6151 Jul, [facility] [place] [facility] [address] [id number] [place] [address]- 2088 Jul, [facility] [place] [facility] [address] [id number] [place] [address]- 3377 Jun, [facility] [place] [facility] [address] [id number] [place] [address]- 0444 Jun, [facility] [place] [facility] [address] [id number] [place] [address]- 6836 Jun, [facility] [place] [facility] [address] [id number] [place] [address]- 5789 Jun, [facility] [place] [facility] [address] [id number] [place] [address]- 5616 Mar, [facility] [place] [facility] [address] [id number] [place] [address]- 5608 Mar, [facility] [place] [facility] [address] [id number] [place] [address]- 4367 Feb, [facility] [place] [facility] [address] [id number] [place] [address]- 7441 Feb, [facility] [place] [facility] [address] [id number] [address]- 1302 December, [facility] [place] [facility] [address] [id number] [place] [address]- 8958 December, [facility] [place] [facility] [address] [id number] [place] [address]- 2836 Nov, [facility] [place] [facility] [address] [id number] [place] [address]- 5073 Oct, [facility] [place] [facility] [id number] [address]- 6426 Oct, [facility] [address], [place] [address]- 0030 Jul, [facility] [address], [place] [address]- 1566 Sep, [facility] [id number] [place] [address] 10710- 1786 Jul, [facility] [address] [id number] [place] [address] 80410- 2462 Jan, [facility] [id number] [place] [address] 42467- 1295 Jun, [facility] [id number] [place] [address] 83930- 2236 Mar, [facility] [id number] [place] [address] 97812- 9024 Jan, [facility] [id number] [place] [address] 09624- 4796 December, [facility] [id number] [place] [address] 64005- 4755 Oct, [facility] [address], [place] [address]- 0991 Sep, IMMUNIZATIONS No Known Immunizations SOCIAL HISTORY Never Assessed REASON FOR VISIT Diabetes - Right foot has knots on bottom great toe has turned black and painful. Right leg from knee down is painful. Had his nerves tested. - Dago FAITH PLAN OF CARE Activity Details Follow Up 4 Weeks Reason:dm2 3 mo chkup VITAL SIGNS Height 67 in 2017-02-19 Weight 268.7 lbs 2017-02-19 Temperature 98.0 degrees Fahrenheit 2017-02-19 Heart Rate 76 bpm 2017-02-19 Respiratory Rate 18 2017-02-19 BMI 42.08 kg/m2 2017-02-19 Blood pressure systolic 136 mmHg 2017-02-19 Blood pressure diastolic 78 mmHg 2017-02-19 MEDICATIONS Medication Instructions Dosage Frequency Start Date End Date Duration Status Neurontin 100 MG Orally Three times a day 1 capsule 8h Feb, Active Oxycodone-Acetaminophen 10-325 MG Orally every 6 hrs 1 tablet as needed 6h Feb, 28 days Active Lyrica 75 MG Orally Twice a day 1 capsule 12h Jan, 30 days Active Lisinopril 40 mg Orally Once a day 1 tablet 24h May, Active Metformin HCl 1000 MG Orally Twice a day 1 tablet with meals 12h May, Active Humalog KwikPen 100 UNIT/ML Subcutaneous 3 times a day 30 units 8h December, Active BD Pen Needle Ultrafine 29G X 12.7MM Inject 6h May, Active Aspirin 325 MG Orally Once a day 1 tablet 24h Active Lipitor 20 mg Orally Once a day 1 tablet 24h May, Active Levemir FlexTouch 100 UNIT/ML Subcutaneous Once a day 90 units 24h May, Active RESULTS No Results PROCEDURES Procedure Date Ordered Result Body Site [facility] VISIT ESTABLISHED PATIENT February 19, 2017 INSTRUCTIONS MEDICATIONS ADMINISTERED No Known Medications MEDICAL (GENERAL) HISTORY Type Description Date Medical History type II diabetes Medical History hyperlipidemia Medical History hypertension Medical History chronic pain back/knees Surgical History right knee arthroscopy 1994 Surgical History heart cath, 2010--clear Surgical History left knee arthroscopy 2010 Surgical History back surgery with rods 12/2016 Hospitalization History surgeries
--- OUTSIDE RECORDS SUMMARY | 2018-04-20 16:08 | XMS REPORT ---
Author Author NISHI PALENCIA Organization [facility] Address [address] [place] [address] Care Team Providers Care Scuba Diver Name Role Phone NISHI PALENCIA Unavailable PROBLEMS Type Condition ICD9-CM Code BXC83-XR Code Onset Dates Condition Status SNOMED Code Problem Controlled type 2 diabetes mellitus without complication, without long -term current use of insulin E11.9 Active 145646401 Problem FCI 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 Active 925341497 Problem Lumbago with sciatica, left side M54.42 Active 042623581 Problem Type 2 diabetes mellitus with diabetic neuropathy, unspecified E11.40 Active 63180602 Problem Diabetes type 2, controlled E11.9 Active 79290672 Problem Type 2 diabetes mellitus with hyperglycemia E11.65 Active 320498730 Problem Mood disorder F39 Active 04181804 Problem Diabetic mononeuropathy associated with type 2 diabetes mellitus E11.41 Active 917975438 Problem Other chronic pain G89.29 Active 90852137 Problem Type 2 diabetes mellitus without complications E11.9 Active 881658178 Problem Neuropathy G62.9 Active 906182371 Problem Slow transit constipation K59.01 Active 24175958 ALLERGIES No Information ENCOUNTERS Encounter Location Date Diagnosis [place] [id number] [place] [address] 29318- 6139 Feb, [place] [address] [place] [id number] [place] [address] 40836- 8819 Jan, Pneumonia of both lower lobes due to infectious organism J18.1 and Mood disorder F39 [place] [address] [place] [id number] [place] [address] 40710- 8575 Jan, BMI 40.0-44.9, adult Z68.41 [place] [id number] [place] [address] 26165- 5787 Jan, [place] [address] [place] [id number] [place] [address] 20253- 0074 Jan, [facility] [id number] [place] [address] 67530 -6850 Jan, Wheezes R06.2 ; Diabetes type 2, controlled E11.9 and Pneumonia of right lower lobe due to infectious organism J18.1 [facility] [address] [place] [id number] [place] [address] 95579- 0164 Jan, Renal insufficiency N28.9 [facility] [address] [place] [address] [id number] [place] [address] 88667- 6788 Jan, Seborrheic keratoses L82.1 [facility] [address] [place] [id number] [place] [address] 88874- 0729 Jan, [facility] [id number] [place] [address] 46577- 0826 Jan, [facility] [address] [id number] [place] [address] 42560- 4999 Jan, Renal insufficiency N28.9 [facility] [address] [place] [address] [id number] [place] [address] 23875- 2675 Jan, [facility] [address] [id number] [place] [address] 18321- 7818 Jan, Diabetes type 2, controlled E11.9 ; Mood disorder F39 and BMI 40.0-44.9, adult Z68.41 [facility] [id number] [place] [address] 04557- 7472 Jan, BMI 40.0-44.9, adult Z68.41 [facility] [address] [place] [address] [id number] [place] [address] 60411- 4930 December, [facility] [address] [place] [address] [id number] [place] [address] 28583- 7779 December, [facility] [address] [address] [id number] [place] [address] 18518- 5925 December, Seborrheic keratoses L82.1 [facility] [address] [address]- 3874 December, Seborrheic keratoses L82.1 [facility] [address] [place] [address] [id number] [address]- 7097 December, [facility] [address] [address] [id number] [place] [address] 86499- 8990 December, [facility] [address] [address] [id number] [place] [address] 99768- 7271 December, BMI 40.0-44.9, adult Z68.41 [facility] [address] [place] [address] [id number] [place] [address] 26984- 6280 December, [facility] [address] [id number] [place] [address] 50136- 8027 December, [facility] [address] [address] [id number] [place] [address] 60709- 0215 Nov, [facility] [address] [place] [address] [id number] [place] [address] 96451- 8414 Nov, [facility] [address] [place] [address] [id number] [place] [address] 86432- 3387 Nov, Seborrheic keratoses L82.1 [facility] [id number] [place] [address] 56441- 6634 Nov, Renal insufficiency N28.9 [facility] [id number] [place] [address] 03853- 9049 Nov, [facility] [address] [place] [address] [id number] [place] [address] 33968- 7581 Nov, [facility] [address] [place] [address] [id number] [place] [address] 49949- 5141 Nov, [facility] [address] [place] [address] 45464- 3653 Nov, Type 2 diabetes mellitus with diabetic neuropathy, unspecified E11.40 ; Other chronic pain G89.29 ; Bronchitis J40 ; Renal cyst N28.1 ; Pain of left foot M79.672 and Pain in right foot M79.671 [place] [address] [place] [address] 55194- 3854 Oct, Type 2 diabetes mellitus without complications E11.9 [place] [address] [place] [id number] [place] [address] 57734- 3771 Oct, SOB (shortness of breath) R06.02 [place] [address] [place] [id number] [place] [address] 15106- 5987 Oct, SOB (shortness of breath) R06.02 [place] [address] [place] [id number] [place] [address] 23708- 4005 Sep, Type 2 diabetes mellitus without complications E11.9 [place] [address] [place] [id number] [place] [address] 95533- 1159 Sep, Left flank pain R10.9 [place] [address] [place] [id number] [place] [address] 70346- 5956 Sep, BMI 40.0-44.9, adult Z68.41 ; Left flank pain R10.9 and Seborrheic keratoses L82.1 [place] [address] [place] [address] 48728- 8032 Aug, Type 2 diabetes mellitus without complications E11.9 [place] [address] [place] [address] 29380- 4348 Jul, Type 2 diabetes mellitus without complications E11.9 and Abdominal pain, left lower quadrant R10.32 [facility] [address] [place] [id number] [place] [address] Jun, [place] [address] [place] [address] 82349- 3606 Jun, Type 2 diabetes mellitus without complications E11.9 [place] [address] [address]- 2089 Jun, Controlled type 2 diabetes mellitus without complication, without long-term current use of insulin E11.9 and Seborrheic keratoses L82.1 [facility] [address] [address] May, Acute back pain M54.9 [facility] [address] [place] [address] [id number] [place] [address] 81049- 8773 13 May, 2017 Type 2 diabetes mellitus without complications E11.9 [facility] [address] [place] [id number] [place] [address] 37144- 1213 28 Apr, 2017 Diabetes type 2, controlled E11.9 ; Lumbago with sciatica, left side M54.42 and Diabetic mononeuropathy associated with type 2 diabetes mellitus E11.41 [place] [address] [place] [id number] [place] [address] 46545- 9097 18 Apr, 2017 Type 2 diabetes mellitus without complications E11.9 [facility] [address] [place] [id number] [place] [address] 14130- 2484 05 Apr, 2017 [place] [address] [place] [id number] [place] [address] 44257- 7051 Mar, Type 2 diabetes mellitus without complications E11.9 [facility] [address] [address]- 3315 Feb, Controlled type 2 diabetes mellitus without complication, without long-term current use of insulin E11.9 ; Neuropathy G62.9 and Onychomycosis B35.1 [facility] [address] [address]- 3219 Jan, Type 2 diabetes mellitus with diabetic neuropathy, unspecified E11.40 [place] [address] [place] [address] [address]- 9851 Jan, Type 2 diabetes mellitus with diabetic neuropathy, unspecified E11.40 [facility] [address] [place] [id number] [place] [address] 01599- 5751 December, Type 2 diabetes mellitus without complications E11.9 [facility] [address] [place] [id number] [place] [address] 78747- 7516 December, Slow transit constipation K59.01 and Pain in right hip M25.551 [place] [address] [place] [id number] [place] [address] 29747- 9181 Nov, Type 2 diabetes mellitus without complications E11.9 [place] [address] [place] [id number] [place] [address] 34178- 2305 Oct, Lumbago with sciatica, left side M54.42 and Other chronic pain G89.29 [place] [address] [place] [id number] [place] [address] 32605- 1273 Sep, Diabetes mellitus E11.9 ; Lumbago with sciatica, left side M54.42 and Type 2 diabetes mellitus without complications E11.9 [place] [address] [place] [id number] [place] [address] 93436- 8704 Aug, Type 2 diabetes mellitus without complications E11.9 and FCI 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 [facility] [address] [place] [id number] [place] [address] [id number] Aug, Dental examination Z01.[address] [facility] [address] [place] [id number] [place] [address] [id number] Aug, Dental examination Z01.20 [facility] [address] [place] [id number] [place] [address] 68366 -8427 Aug, Dental abscess K04.7 [facility] [address] [place] [id number] [place] [address] 85104- 0673 Jul, Type 2 diabetes mellitus with hyperglycemia E11.65 and FCI 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 [facility] [address] [place] [id number] [place] [address] 46028- 3373 Jul, [place] [address] [place] [id number] [place] [address] 41043- 7721 Jul, Type 2 diabetes mellitus with diabetic neuropathy, unspecified E11.40 [place] [address] [place] [id number] [place] [address] 33335- 9704 Jun, Type 2 diabetes mellitus with diabetic neuropathy, unspecified E11.40 and Lumbago with sciatica, left side M54.42 [place] [address] [place] [id number] [place] [address] 59363- 0328 May, Controlled type 2 diabetes mellitus without complication, without long-term current use of insulin E11.9 [place] [address] [place] [id number] [place] [address] 98256- 5035 Apr, Controlled type 2 diabetes mellitus without complication, without long-term current use of insulin E11.9 and Lumbar neuritis M54.16 [place] [address] [place] [id number] [place] [address] 03257- 1018 Mar, [place] [address] [place] [id number] [place] [address] 26843- 7956 Mar, Other chronic pain G89.29 ; Pain in left knee M25.562 ; Sciatica, left side M54.32 ; Pain in left hip M25.552 ; Type 2 diabetes mellitus with hyperglycemia E11.65 ; manager 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 and Mood disorder F39 [place] [address] [place] [id number] [place] [address] 01534- 0822 December, Diabetes type 2, controlled E11.9 [place] [address] [place] [id number] [place] [address] 41838- 0496 December, Diabetes type 2, controlled E11.9 [place] [address] [place] [id number] [place] [address] 99947- 6221 Oct, Shoulder pain, right M25.511 and Knee pain, right M25.561 [place] [address] [place] [id number] [place] [address] 23386- 4675 Oct, Knee pain, left M25.562 [place] [address] [place] [id number] [place] [address] 73194- 3853 Sep, Diabetes mellitus E11.9 and Knee pain M25.569 [facility] [address] [place] [id number] [place] [address] 17575- 9241 Sep, [facility] [address] [place] [id number] [place] [address] 79190- 0734 Jun, Type 2 diabetes mellitus with diabetic neuropathy, unspecified E11.40 and Type 2 diabetes mellitus with hyperglycemia E11.65 [facility] [address] [place] [id number] [place] [address] 42049- 3301 May, Diabetes mellitus E11.9 [facility] [address] [place] [id number] [place] [address] 876308- 2743 May, Diabetes mellitus E11.9 and Lumbago with sciatica, left side M54.42 [facility] [address] [place] [id number] [place] [address] 37467- 7589 Jan, Osteoarthritis of knees, bilateral 715.96 [facility] [address] [place] [id number] [place] [address] 58055- 7209 December, [facility] [address] [place] [id number] [place] [address] 63540- 9226 December, Knee pain, bilateral 719.46 [facility] [address] [place] [id number] [place] [address] 54825- 9803 Nov, Knee pain, bilateral 719.46 [facility] [address] [place] [id number] [place] [address] 56463- 0897 Nov, [facility] [address] [place] [id number] [place] [address] 76712- 5416 Nov, [facility] [address] [id number] [place] [address] 779471- 7932 Oct, [facility] [address] [place] [address] 68592- 6082 Oct, [facility] [address] [place] [id number] [place] [address] [place] [address]- 1069 Aug, [facility] [place] [facility] [address] [id number] [place] [address]- 2966 Aug, [facility] [place] [facility] [address] [id number] [place] [address]- 0002 Jul, [facility] [place] [facility] [address] [id number] [place] 6746 Jul, [facility] [place] [facility] [address] [id number] [place] [address]- 1475 Jun, [facility] [place] [facility] [address] [id number] [place] 1199 Jun, [facility] [place] [facility] [address] [id number] [place] [address]- 0190 May, [facility] [place] [facility] [address] [id number] [place] [address]- 5769 15 May, 2014 [facility] [place] [facility] [address] [id number] [place] [address]- 3942 15 Apr, 2014 [facility] [place] [facility] [address] [id number] [place] [address]- 6341 15 Apr, 2014 [facility] [place] [facility] [address] [id number] [place] [address]- 0306 08 Apr, 2014 [facility] [place] [facility] [address] [id number] [place] [address]- 4038 08 Apr, 2014 [facility] [place] [facility] [address] [id number] [place] [address]- 1894 Feb, [facility] [place] [facility] [address] [id number] [place] [address]- 2934 Feb, [facility] [place] [facility] [address] [id number] [place] [address]- 6027 December, [facility] [place] [facility] [address] [id number] [place] 6505 December, [facility] [place] [facility] [address] [id number] [place] [address]- 0730 December, [facility] [place] [facility] [address] [id number] [place] [address]- 7466 December, [facility] [place] [facility] [address] [id number] [place] [address]- 4474 Nov, [facility] [place] [facility] [address] [id number] [place] [address]- 1037 Nov, [facility] [place] [facility] [address] [id number] [place] [address]- 1428 Oct, [facility] [place] [facility] [address] [id number] [place] [address]- 2305 Oct, [facility] [place] [facility] [address] [id number] [place] [address]- 3874 Aug, [facility] [place] [facility] [address] [id number] [place] [address]- 2483 Aug, [facility] [place] [facility] [address] [id number] [place] 2723 Jul, [facility] [place] [facility] [address] [id number] [place] [address]- 4615 Jul, [facility] [place] [facility] [address] [id number] [place] [address]- 6225 May, [facility] [place] [facility] [address] [id number] [place] [address]- 2144 Jan, [facility] [place] [facility] [address] [id number] [place] [address]- 6312 Jan, [facility] [place] [facility] [address] [id number] [place] [address]- 0308 December, [facility] [place] [facility] [address] [id number] [place] [address]- 0446 Nov, [facility] [place] [facility] [address] [id number] [place] [address]- 5392 Oct, 2012 [facility] [place] [facility] [address] [id number] [place] [address]- 4225 19 Oct, 2012 [facility] [place] [facility] [address] [id number] [place] [address]- 6336 14 Oct, 2012 [facility] [place] [facility] [address] [id number] [place] [address]- 8506 11 Oct, 2012 [facility] [place] [facility] [address] [id number] [place] [address]- 0691 07 Oct, 2012 [facility] [place] [facility] [address] [id number] [place] [address]- 2151 07 Oct, 2012 [facility] [place] [facility] [address] [id number] [place] [address]- 2621 07 Sep, 2012 [facility] [place] [facility] [address] [id number] [place] [address]- 7786 18 Jul, 2012 [facility] [place] [facility] [address] [id number] [place] [address]- 8489 Jul, [facility] [place] [facility] [address] [id number] [place] [address]- 7784 Jul, [facility] [place] [facility] [address] [id number] [place] [address]- 9529 Jun, [facility] [place] [facility] [address] [id number] [place] [address]- 8144 Jun, [facility] [place] [facility] [address] [id number] [place] [address]- 7857 Jun, [facility] [place] [facility] [address] [id number] [place] [address]- 8731 Jun, [facility] [place] [facility] [address] [id number] [place] [address]- 9626 Mar, [facility] [place] [facility] [address] [id number] [place] [address]- 9486 Mar, [facility] [place] [facility] [address] [id number] [place] [address]- 8503 Feb, [facility] [address] [id number] [place] [address]- 1426 Feb, [facility] [address] [id number] [place] [address] 2546 December, [facility] [address] [id number] [place] [address]- 5136 December, [facility] [address] [id number] [place] [address]- 4652 Nov, [facility] [address] [id number] [place] [address]- 3566 Oct, [facility] [address] [id number] [place] [address] 2546 Oct, [facility] [address] [id number] [place] [address]- 4313 Jul, [facility] [address] [id number] [place] [address]- 4698 Sep, [facility] [address] [id number] [place] [address]- 5285 Jul, [facility] [address] [id number] [place] [address]- 6106 Jan, [facility] [address] [id number] [place] [address]- 0186 Jun, [facility] [address] [id number] [place] [address]- 2540 Mar, [facility] [address] [id number] [place] [address]- 1793 Jan, [facility] [address] [id number] [place] [address]- 2546 December, [facility] [address] [id number] [place] [address]- 1010 Oct, [facility] [address] [facility] [id number] [place] [address]- 1992 Sep, IMMUNIZATIONS No Known Immunizations SOCIAL HISTORY Never Assessed REASON FOR VISIT Controlled Med Refill PLAN OF CARE VITAL SIGNS MEDICATIONS Medication Instructions Dosage Frequency Start Date End Date Duration Status Oxycodone-Acetaminophen 10-325 MG Orally every 6 hrs 1 tablet as needed 6h Sep, 28 days Active RESULTS No Results PROCEDURES [...] rods 12/2016 Hospitalization History surgeries Hospitalization History [facility] ED- Back/Left Side Pain 06/06/2017 Hospitalization History [facility] ED- Congested, cough and SOB 11/07/2017
--- OUTSIDE RECORDS SUMMARY | 2018-04-20 16:08 | XMS REPORT ---
Author Author JAIDEN Del Rio [facility] WALK IN [facility] Address [address] [place] [address] Care Team Providers Care Advertising Assistant Manager Name Role Phone JAIDEN Del Rio Unavailable PROBLEMS Type Condition ICD9-CM Code TYQ75-HS Code Onset Dates Condition Status SNOMED Code Problem Type 2 diabetes mellitus with hyperglycemia E11.65 Active 532071897 Problem Lumbago with sciatica, left side M54.42 Active 745804310 Problem Controlled type 2 diabetes mellitus without complication, without long -term current use of insulin E11.9 Active 329495852 Problem Type 2 diabetes mellitus with diabetic neuropathy, unspecified E11.40 Active 81891849 Problem Diabetes type 2, controlled E11.9 Active 90783526 Problem Diabetic mononeuropathy associated with type 2 diabetes mellitus E11.41 Active 843020979 Problem Neuropathy G62.9 Active 019347585 Problem Type 2 diabetes mellitus without complications E11.9 Active 586745929 Problem 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 Active 954127460 Problem Slow transit constipation K59.01 Active 52271744 Problem Other chronic pain G89.29 Active 82828660 ALLERGIES No Known Allergies ENCOUNTERS Encounter Location Date Diagnosis [place] [id number] [place] [address] 81346- 5430 Jan, [facility] [address], [place] [address] 3[address] December, [facility] [id number] [place] [address] 32408- 1018 December, Seborrheic keratoses L82.1 [facility] [address], [place] [address] 3108 December, Seborrheic keratoses L82.1 [place] [id number] [place] [address] 50533- 6488 December, [facility] [id number] [place] [address] 76228- 2984 December, [facility] [id number] [place] [address] 40972- 0528 December, BMI 40.0-44.9, adult Z68.41 [facility] [id number] [place] [address] 79628- 2009 December, [facility] [id number] [place] [address] 22464- 7553 December, [facility] [id number] [place] [address] 11374- 2069 Nov, [facility] [id number] [place] [address] 85720- 2306 Nov, [facility] [id number] [place] [address] 60200- 7422 Nov, Seborrheic keratoses L82.1 [facility] [id number] [place] [address] 50434- 8740 Nov, Renal insufficiency N28.9 [facility] [id number] [place] [address] 14102- 3530 Nov, [facility] [id number] [place] [address] 25091- 5731 Nov, [facility] [id number] [place] [address] 63596- 0611 Nov, [facility] [id number] [place] [address] 52295- 3417 Nov, Type 2 diabetes mellitus with diabetic neuropathy, unspecified E11.40 ; Other chronic pain G89.29 ; Bronchitis J40 ; Renal cyst N28.1 ; Pain of left foot M79.672 and Pain in right foot M79.671 [facility] [id number] [place] [address] 36423- 3887 Oct, Type 2 diabetes mellitus without complications E11.9 [place] [address] [place] [address] 36775- 7046 Oct, SOB (shortness of breath) R06.02 [place] [address] [place] [address] 04593- 8279 Oct, SOB (shortness of breath) R06.02 [place] [address] [id number] [place] [address] 06404- 8187 Sep, Type 2 diabetes mellitus without complications E11.9 [place] [id number] [place] [address] 80597- 3161 Sep, Left flank pain R10.9 [place] [id number] [place] [address] 84908- 8936 Sep, BMI 40.0-44.9, adult Z68.41 ; Left flank pain R10.9 and Seborrheic keratoses L82.1 [place] [address] [place] [address] 90739- 0888 Aug, Type 2 diabetes mellitus without complications E11.9 [place] [address] [place] [address] 02336- 1198 Jul, Type 2 diabetes mellitus without complications E11.9 and Abdominal pain, left lower quadrant R10.32 [facility] [address] [id number] [address] Jun, [place] [address], [place] [address]- 3203 Jun, Type 2 diabetes mellitus without complications E11.9 [place] [address] [place] [address] 08875- 6684 Jun, Controlled type 2 diabetes mellitus without complication, without long-term current use of insulin E11.9 and Seborrheic keratoses L82.1 [facility] WALK IN [facility] [id number] [place] [address] 46769 -6997 27 May, 2017 Acute back pain M54.9 [place] [id number] [place] [address] 38684- 1841 13 May, 2017 Type 2 diabetes mellitus without complications E11.9 [place] [id number] [place] [address] 32403- 2895 28 Apr, 2017 Diabetes type 2, controlled E11.9 ; Lumbago with sciatica, left side M54.42 and Diabetic mononeuropathy associated with type 2 diabetes mellitus E11.41 [place] [id number] [place] [address] 68929- 2827 18 Apr, 2017 Type 2 diabetes mellitus without complications E11.9 [place] [address] [id number] [place] [address] 18485- 0394 05 Apr, 2017 [place] [id number] [place] [address] 03944- 9685 Mar, Type 2 diabetes mellitus without complications E11.9 [place] [id number] [place] [address] 31439- 8088 14 Feb, 2017 Controlled type 2 diabetes mellitus without complication, without long-term current use of insulin E11.9 ; Neuropathy G62.9 and Onychomycosis B35.1 [place] [address] [place] [address] 50853- 5700 Jan, Type 2 diabetes mellitus with diabetic neuropathy, unspecified E11.40 [place] [address] [id number] [place] [address] 69460- 9564 Jan, Type 2 diabetes mellitus with diabetic neuropathy, unspecified E11.40 [place] [address] [id number] [place] [address] 77017- 8451 December, Type 2 diabetes mellitus without complications E11.9 [place] [id number] [place] [address] 02138- 1656 December, Slow transit constipation K59.01 and Pain in right hip M25.551 [place] [address], [place] [address]- 5327 Nov, Type 2 diabetes mellitus without complications E11.9 [facility] [id number] [place] [address] 56555- 2062 Oct, Lumbago with sciatica, left side M54.42 and Other chronic pain G89.29 [facility] [id number] [place] [address] 29047- 6136 Sep, Diabetes mellitus E11.9 ; Lumbago with sciatica, left side M54.42 and Type 2 diabetes mellitus without complications E11.9 [place] [id number] [place] [address] 69874- 6478 Aug, Type 2 diabetes mellitus without complications E11.9 and 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 [facility] [id number] [place] [address] [id number] Aug, Dental examination Z01.20 [facility] [id number] [place] [address] [id number] Aug, Dental examination Z01.20 [facility] WALK IN [facility] [id number] [place] [address] 67141 -9807 Aug, Dental abscess K04.7 [facility] [address] [place] [address] 30508- 6599 Jul, Type 2 diabetes mellitus with hyperglycemia E11.65 and 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 [facility] [address], [place] [address]- 0988 Jul, [place] [id number] [place] [address] 95578- 8062 Jul, Type 2 diabetes mellitus with diabetic neuropathy, unspecified E11.40 [facility] [address] [place] [address] 27668- 4339 Jun, Type 2 diabetes mellitus with diabetic neuropathy, unspecified E11.40 and Lumbago with sciatica, left side M54.42 [place] [address], [place] [address]- 0870 May, Controlled type 2 diabetes mellitus without complication, without long-term current use of insulin E11.9 [place] [id number] [place] [address] 77862- 9450 Apr, Controlled type 2 diabetes mellitus without complication, without long-term current use of insulin E11.9 and Lumbar neuritis M54.16 [place] [id number] [place] [address] 93199- 3366 Mar, [place] [id number] [place] [address] 61704- 0215 Mar, Other chronic pain G89.29 ; Pain in left knee M25.562 ; Sciatica, left side M54.32 ; Pain in left hip M25.552 ; Type 2 diabetes mellitus with hyperglycemia E11.65 ; 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 and Mood disorder F39 [place] [address] [id number] [place] [address] 38391- 8431 December, Diabetes type 2, controlled E11.9 [place] [id number] [place] [address] 11311- 4659 December, Diabetes type 2, controlled E11.9 [place] [address] [address]- 9258 Oct, Shoulder pain, right M25.511 and Knee pain, right M25.561 [place] [address] [id number] [place] [address] 35390- 7521 Oct, Knee pain, left M25.562 [place] [id number] [place] [address] 89689- 3872 Sep, Diabetes mellitus E11.9 and Knee pain M25.569 [place] [address] [address] [address]- 6457 Sep, [place] [address] [place] [address]- 3751 Jun, Type 2 diabetes mellitus with diabetic neuropathy, unspecified E11.40 and Type 2 diabetes mellitus with hyperglycemia E11.65 [facility] [id number] [place] [address] 97546- 7362 May, Diabetes mellitus E11.9 [facility] [id number] [place] [address] 73714- 9941 May, Diabetes mellitus E11.9 and Lumbago with sciatica, left side M54.42 [facility] [id number] [place] [address] 53360- 6227 Jan, Osteoarthritis of knees, bilateral 715.96 [facility] [id number] [place] [address] 05035- 1422 December, [facility] [id number] [place] [address] 60433- 3970 December, Knee pain, bilateral 719.46 [facility] [id number] [place] [address] 79145- 1690 Nov, Knee pain, bilateral 719.46 [facility] [id number] [place] [address] 22163- 0979 Nov, [facility] [address] [place] [address] 96153- 4671 Nov, [facility] [address], [place] [address]- 7469 Oct, [facility] [address], [place] [address]- 8084 Oct, [facility] [id number] [place] [address] 11271704- 9044 Aug, [facility] [address], [place] [address]- 8755 Aug, [facility] [id number] [place] [address] 35842- 5780 17 Jul, 2014 [facility] [place] [facility] [address] [id number] [place] [address]- 3174 17 Jul, 2014 [facility] [place] [facility] [address] [id number] [place] [address]- 2754 Jun, [facility] [place] [facility] [address] [id number] [place] [address]- 9970 Jun, [facility] [place] [facility] [address] [id number] [place] [address]- 0673 May, [facility] [place] [facility] [address] [id number] [place] [address]- 4531 15 May, 2014 [facility] [place] [facility] [address] [id number] [place] [address]- 2718 15 Apr, 2014 [facility] [place] [facility] [address] [id number] [place] [address]- 6087 15 Apr, 2014 [facility] [place] [facility] [address] [id number] [place] [address]- 8493 08 Apr, 2014 [facility] [place] [facility] [address] [id number] [place] [address]- 9934 08 Apr, 2014 [facility] [place] [facility] [address] [id number] [place] [address]- 6533 Feb, [facility] [place] [facility] [address] [id number] [place] [address]- 7517 Feb, [facility] [place] [facility] [address] [id number] [place] [address]- 7071 December, [facility] [place] [facility] [address] [id number] [place] [address]- 3370 December, [facility] [place] [facility] [address] [id number] [place] [address]- 0747 December, [facility] [place] [facility] [address] [id number] [place] 7605 December, [facility] [place] [facility] [address] [id number] [place] [address]- 1736 Nov, [facility] [address] [id number] [place] [address]- 3006 Nov, [facility] [address] [id number] [place] [address] 254 Oct, [facility] [address] [id number] [place] [address]- 6616 Oct, [facility] [address] [id number] [place] [address]- 0669 Aug, [facility] [address] [id number] [place] [address]- 9598 Aug, [facility] [address] [id number] [place] [address]- 1760 Jul, [facility] [address] [id number] [place] [address]- 9982 Jul, [facility] [address] [id number] [place] [address]- 7635 May, [facility] [address] [id number] [place] [address]- 7019 Jan, [facility] [address] [id number] [place] [address]- 8337 Jan, [facility] [address] [id number] [place] [address]- 3306 December, [facility] [address] [id number] [place] [address]- 2546 Nov, [facility] [place] [facility] [address] [id number] [place] [address]- 2546 25 Oct, 2012 [facility] [place] [facility] [address] [id number] [place] [address]- 2546 19 Oct, 2012 [facility] [address] [id number] [place] [address]- 2546 14 Oct, 2012 [facility] [place] [facility] [address] [id number] [place] [address]- 4065 11 Oct, 2012 [facility] [place] [facility] [address] [id number] [place] [address]- 3456 07 Oct, 2012 [facility] [place] [facility] [address] [id number] [place] [address]- 1028 07 Oct, 2012 [facility] [place] [facility] [address] [id number] [place] [address]- 7256 07 Sep, 2012 [facility] [place] [facility] [address] [id number] [place] [address]- 3399 Jul, [facility] [place] [facility] [address] [id number] [place] [address]- 6832 Jul, [facility] [place] [facility] [address] [id number] [place] [address]- 1330 Jul, [facility] [place] [facility] [address] [id number] [place] [address]- 5350 Jun, [facility] [place] [facility] [address] [id number] [place] [address]- 0289 Jun, [facility] [place] [facility] [address] [id number] [place] [address]- 8721 Jun, [facility] [place] [facility] [address] [id number] [place] [address]- 5407 Jun, [facility] [place] [facility] [address] [id number] [place] [address]- 7584 Mar, [facility] [place] [facility] [address] [id number] [place] [address]- 7350 Mar, [facility] [place] [facility] [address] [id number] [place] [address]- 7901 Feb, [facility] [place] [facility] [address] [id number] [place] [address]- 7927 Feb, [facility] [place] [facility] [address] [id number] [address] 2546 December, [facility] [address] [place] [address]- 8016 December, [facility] [id number] [address]- 8566 Nov, [facility] [address] [place] [address] 2546 Oct, [facility] [address], [place] [address]- 9846 Oct, [facility] [address] [place] [address]- 6446 Jul, [facility] [address] [place] [address]- 6986 Sep, [facility] [address] [place] [address] 26049- 9108 Jul, [facility] [address] [place] [address]- 9592 Jan, [facility] [address] [place] [address]- 6365 Jun, [facility] [address] [place] [address]- 8076 Mar, [facility] [address] [place] [address]- 3096 Jan, [facility] [id number] [address]- 8698 December, [facility] [address] [place] [address]- 1781 Oct, [facility] [address] 3772 Sep, IMMUNIZATIONS No Known Immunizations SOCIAL HISTORY Never Assessed REASON FOR VISIT left lower back pain for a couple days [id number] PLAN OF CARE Activity Details Follow Up prn Reason: VITAL SIGNS Height 67 in 2017-06-04 Weight 277.6 lbs 2017-06-04 Temperature 97.7 degrees Fahrenheit 2017-06-04 Heart Rate 80 bpm 2017-06-04 Respiratory Rate 22 2017-06-04 BMI 43.47 kg/m2 2017-06-04 Blood pressure systolic 150 mmHg 2017-06-04 Blood pressure diastolic 80 mmHg 2017-06-04 MEDICATIONS Medication Instructions Dosage Frequency Start Date End Date Duration Status Cyclobenzaprine HCl 5 MG Orally Three times a day 1 tablet as needed 8h May, Jun, 5 days Active Naproxen 500 MG Orally every 12 hrs 1 tablet with food or milk as needed 12h May, Jun, 15 days Active Aspirin 325 MG Orally Once a day 1 tablet 24h Active Oxycodone-Acetaminophen 10-325 MG Orally every 6 hrs 1 tablet as needed 6h May, 28 days Active Metformin HCl 1000 MG Orally Twice a day 1 tablet with meals 12h May, Active Levemir FlexTouch 100 UNIT/ML Subcutaneous Once a day 90 units 24h May, Active Humalog KwikPen 100 UNIT/ML Subcutaneous 3 times a day 30 units 8h December, Active Lyrica 75 MG Orally Twice a day 1 capsule 12h Jan, 30 days Active Lipitor 20 mg Orally Once a day 1 tablet 24h May, Active BD Pen Needle Ultrafine 29G X 12.7MM Inject 6h May, Active Lisinopril 40 mg Orally Once a day 1 tablet 24h May, Active Neurontin 800 MG Orally Three times a day 1 capsule 8h 14 Feb, 2017 Active RESULTS Name Result Date Reference Range UA LONG DIP (IN HOUSE) 2017-06-04 Lot # [id number] Exp date Clarity clear Color yellow Odor none GLU 2+ FAUSTO negative KET negative SG 1.015 BLO negative pH 6.5 Protein negative URO 1.0 NIT negative YARI negative Lot # [id number] Exp date November 2017 PROCEDURES Procedure Date Ordered Result Body Site URINALYSIS, AUTO, W/O SCOPE Jun 04, 2017 [facility] VISIT ESTABLISHED PATIENT Jun 04, 2017 INSTRUCTIONS MEDICATIONS ADMINISTERED No Known Medications MEDICAL (GENERAL) HISTORY Type Description Date Medical History type II diabetes Medical History hyperlipidemia Medical History hypertension Medical History chronic pain back/knees Surgical History right knee arthroscopy 1994 Surgical History heart cath, 2010--clear Surgical History left knee arthroscopy 2010 Surgical History back surgery with rods 12/2016 Hospitalization History surgeries Hospitalization History [facility]- Back/Left Side Pain 06/06/2017 Hospitalization History [facility]- Congested, cough and SOB 11/07/2017
--- OUTSIDE RECORDS SUMMARY | 2018-04-20 16:09 | XMS REPORT ---
Author Author ABBE CARO [facility] Address [address] [place] [address] Care Team Providers Care Lobby Concierge Name Role Phone ABBE CARO Unavailable PROBLEMS Type Condition ICD9-CM Code OUM55-FM Code Onset Dates Condition Status SNOMED Code Problem Type 2 diabetes mellitus with hyperglycemia E11.65 Active 405841791 Problem Lumbago with sciatica, left side M54.42 Active 711753261 Problem Controlled type 2 diabetes mellitus without complication, without long -term current use of insulin E11.9 Active 779016148 Problem Type 2 diabetes mellitus with diabetic neuropathy, unspecified E11.40 Active 97021220 Problem Diabetes type 2, controlled E11.9 Active 22690220 Problem Diabetic mononeuropathy associated with type 2 diabetes mellitus E11.41 Active 572240257 Problem Neuropathy G62.9 Active 774683411 Problem Type 2 diabetes mellitus without complications E11.9 Active 552160014 Problem half-way 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 Active 215664355 Problem Slow transit constipation K59.01 Active 79854173 Problem Other chronic pain G89.29 Active 03278226 ALLERGIES No Information ENCOUNTERS Encounter Location Date Diagnosis [place] [id number] [address] Jan, [facility], [place] [id number] [place] [address] 85670- 9476 Jan, [facility], [place] [id number] [place] [address] 09635- 1972 December, [facility], [place] [id number] [place] [address] 91921- 6107 December, [facility], [place] [id number] [place] [address] 03801- 2192 December, Seborrheic keratoses L82.1 [place] [address], [place] [address] 09[address] December, Seborrheic keratoses L82.1 [facility], [place] [id number] [place] [address] 40714- 6320 December, [facility], [place] [id number] [place] [address] 78117- 0308 December, [facility], [place] [id number] [place] [address] 41085- 7449 December, BMI 40.0-44.9, adult Z68.41 [facility], [place] [id number] [place] [address] 33384- 3852 December, [facility], [place] [id number] [place] [address] 85170- 7449 December, [facility], [place] [id number] [place] [address] 80246- 9396 Nov, [facility], [place] [id number] [place] [address] 40390- 4595 Nov, [facility], [place] [id number] [place] [address] 95737- 5195 Nov, Seborrheic keratoses L82.1 [facility], [place] [address], [place] [address] 8978 Nov, Renal insufficiency N28.9 [facility], [place] [address], [place] [address] 1626 Nov, [facility], [place] [address] [address]- 4290 Nov, [facility], [place] [id number] [place] [address] 22025- 4103 Nov, [facility], [place] [address], [place] [address] 9926 Nov, Type 2 diabetes mellitus with diabetic neuropathy, unspecified E11.40 ; Other chronic pain G89.29 ; Bronchitis J40 ; Renal cyst N28.1 ; Pain of left foot M79.672 and Pain in right foot M79.671 [place] [address] [id number] [place] [address] 18974- 6830 Oct, Type 2 diabetes mellitus without complications E11.9 [place] [id number] [place] [address] 06936- 1582 Oct, SOB (shortness of breath) R06.02 [place] [id number] [place] [address] 50589- 7618 Oct, SOB (shortness of breath) R06.02 [place] [address] [id number] [place] [address] 08337- 4203 Sep, Type 2 diabetes mellitus without complications E11.9 [place] [address] [id number] [place] [address] 97920- 9944 Sep, Left flank pain R10.9 [place] [address] [id number] [place] [address] 16571- 0030 Sep, BMI 40.0-44.9, adult Z68.41 ; Left flank pain R10.9 and Seborrheic keratoses L82.1 [place] [address] [id number] [place] [address] 10406- 6060 Aug, Type 2 diabetes mellitus without complications E11.9 [place] [address] [place] [address] 80363- 1278 Jul, Type 2 diabetes mellitus without complications E11.9 and Abdominal pain, left lower quadrant R10.32 [facility] [address] [place], [place] [id number] [place] [address] Jun, [place] [address] [place] [id number] [place] [address] 74527- 0688 Jun, Type 2 diabetes mellitus without complications E11.9 [place] [address] [id number] [place] [address] 00266- 7981 Jun, Controlled type 2 diabetes mellitus without complication, without long-term current use of insulin E11.9 and Seborrheic keratoses L82.1 [facility] [id number] [place] [address] 54879 -7624 May, Acute back pain M54.9 [facility], [place] [id number] [place] [address] 86871- 1086 13 May, 2017 Type 2 diabetes mellitus without complications E11.9 [facility], [place] [id number] [place] [address] 06113- 9024 28 Apr, 2017 Diabetes type 2, controlled E11.9 ; Lumbago with sciatica, left side M54.42 and Diabetic mononeuropathy associated with type 2 diabetes mellitus E11.41 [place] [address] [id number] [place] [address] 32796- 7016 18 Apr, 2017 Type 2 diabetes mellitus without complications E11.9 [facility], [place] [id number] [place] [address] 99353- 2275 Apr, [facility], [place] [address] [id number] [place] [address] 79171- 8668 Mar, Type 2 diabetes mellitus without complications E11.9 [facility], [place] [id number] [place] [address] 73646- 6920 Feb, Controlled type 2 diabetes mellitus without complication, without long-term current use of insulin E11.9 ; Neuropathy G62.9 and Onychomycosis B35.1 [facility], [place] [id number] [place] [address] 25747- 3033 Jan, Type 2 diabetes mellitus with diabetic neuropathy, unspecified E11.40 [place] [address] [id number] [place] [address] 85295- 9404 Jan, Type 2 diabetes mellitus with diabetic neuropathy, unspecified E11.40 [facility], [place] [id number] [place] [address] 45578- 7143 December, Type 2 diabetes mellitus without complications E11.9 [facility], [place] [address], [place] [address]- 9532 December, Slow transit constipation K59.01 and Pain in right hip M25.551 [facility], [place] [id number] [place] [address] 91068- 5780 Nov, Type 2 diabetes mellitus without complications E11.9 [place] [address] [id number] [place] [address] 47148- 4325 Oct, Lumbago with sciatica, left side M54.42 and Other chronic pain G89.29 [place] [address] [id number] [place] [address] 29572- 8952 Sep, Diabetes mellitus E11.9 ; Lumbago with sciatica, left side M54.42 and Type 2 diabetes mellitus without complications E11.9 [place] [address] [id number] [place] [address] 64483- 6336 Aug, Type 2 diabetes mellitus without complications E11.9 and infirmary attendant 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 [facility] [id number] [place] [address] [id number] Aug, Dental examination Z01.20 [facility] [id number] [place] [address] [id number] Aug, Dental examination Z01.20 [facility] [address] [place] [address] 46409 -3416 Aug, Dental abscess K04.7 [facility], [place] [id number] [place] [address] 81589- 8732 Jul, Type 2 diabetes mellitus with hyperglycemia E11.65 and infirmary attendant 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 [facility], [place] [address] [id number] [place] [address] 87219- 3305 Jul, [facility], [place] [id number] [place] [address] 70254- 2357 Jul, Type 2 diabetes mellitus with diabetic neuropathy, unspecified E11.40 [place] [address] [place] [address] 97337- 2523 Jun, Type 2 diabetes mellitus with diabetic neuropathy, unspecified E11.40 and Lumbago with sciatica, left side M54.42 [place] [address] [id number] [place] [address] 46436- 9914 May, Controlled type 2 diabetes mellitus without complication, without long-term current use of insulin E11.9 [place] [address] [id number] [place] [address] 44178- 4898 Apr, Controlled type 2 diabetes mellitus without complication, without long-term current use of insulin E11.9 and Lumbar neuritis M54.16 [place] [address] [id number] [place] [address] 81236- 2487 Mar, [place] [address] [id number] [place] [address] 82935- 7304 Mar, Other chronic pain G89.29 ; Pain in left knee M25.562 ; Sciatica, left side M54.32 ; Pain in left hip M25.552 ; Type 2 diabetes mellitus with hyperglycemia E11.65 ; half-way 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 and Mood disorder F39 [place] [address] [id number] [place] [address] 65451- 4869 December, Diabetes type 2, controlled E11.9 [place] [address] [id number] [place] [address] 64731- 3120 December, Diabetes type 2, controlled E11.9 [place] [address] [id number] [place] [address] 94098- 3778 Oct, Shoulder pain, right M25.511 and Knee pain, right M25.561 [place] [address] [id number] [place] [address] 04029- 9124 Oct, Knee pain, left M25.562 [place] [address] [id number] [place] [address] 11099- 8872 Sep, Diabetes mellitus E11.9 and Knee pain M25.569 [facility], [place] [id number], [place] [address]- 7297 Sep, [facility], [place] [id number] [place] [address] 603335- 3656 Jun, Type 2 diabetes mellitus with diabetic neuropathy, unspecified E11.40 and Type 2 diabetes mellitus with hyperglycemia E11.65 [facility], [place] [address] [id number] [place] [address] 854932- 5281 May, Diabetes mellitus E11.9 [facility], [place] [id number] [place] [address] 740535- 5794 May, Diabetes mellitus E11.9 and Lumbago with sciatica, left side M54.42 [facility], [place] [id number] [place] [address] 28915- 0663 Jan, Osteoarthritis of knees, bilateral 715.96 [facility], [place] [address] [id number] [place] [address] 65611- 7359 December, [facility], [place] [id number] [place] [address] 31360- 9521 December, Knee pain, bilateral 719.46 [facility], [place] [id number] [place] [address] 41177- 5686 29 Nov, 2014 Knee pain, bilateral 719.46 [facility], [place] [address] [id number] [place] [address] 80385- 4396 Nov, [facility], [place] [id number] [place] [address] 81723- 7747 Nov, [facility], [place] [id number] [place] [address] 23581- 7758 Oct, [facility], [place] [id number] [place] [address] 12711- 7784 Oct, [facility], [place] [id number] [place] [address] 74458- 5274 Aug, [facility] [place] [facility] [address] [id number] [place] [address]- 8941 Aug, [facility] [place] [facility] [address] [id number] [place] [address]- 3011 Jul, [facility] [place] [facility] [address] [id number] [place] [address]- 8329 Jul, [facility] [place] [facility] [address] [id number] [place] [address]- 2487 Jun, [facility] [place] [facility] [address] [id number] [place] [address]- 6893 Jun, [facility] [place] [facility] [address] [id number] [place] [address]- 8760 May, [facility] [place] [facility] [address] [id number] [place] [address]- 6592 May, [facility] [place] [facility] [address] [id number] [place] [address]- 3557 15 Apr, 2014 [facility] [place] [facility] [address] [id number] [place] [address]- 1056 15 Apr, 2014 [facility] [place] [facility] [address] [id number] [place] [address]- 9666 08 Apr, 2014 [facility] [place] [facility] [address] [id number] [place] [address]- 1897 08 Apr, 2014 [facility] [place] [facility] [address] [id number] [place] [address]- 3050 Feb, [facility] [place] [facility] [address] [id number] [place] 9665 Feb, [facility] [place] [facility] [address] [id number] [place] [address]- 2809 December, [facility] [place] [facility] [address] [id number] [place] [address]- 5321 December, [facility] [place] [facility] [address] [id number] [place] [address]- 5376 December, [facility] [place] [facility] [address] [id number] [place] [address]- 2597 December, [facility] [place] [facility] [address] [id number] [place] [address]- 9983 Nov, [facility] [place] [facility] [address] [id number] [place] [address]- 2777 Nov, [facility] [place] [facility] [address] [id number] [place] [address]- 4852 Oct, [facility] [place] [facility] [address] [id number] [place] [address]- 7777 Oct, [facility] [place] [facility] [address] [id number] [place] [address]- 9168 Aug, [facility] [place] [facility] [address] [id number] [place] [address]- 2209 Aug, [facility] [place] [facility] [address] [id number] [place] [address]- 0629 Jul, [facility] [place] [facility] [address] [id number] [place] [address]- 2504 Jul, [facility] [place] [facility] [address] [id number] [place] [address]- 2247 May, [facility] [place] [facility] [address] [id number] [place] [address]- 7270 Jan, [facility] [place] [facility] [address] [id number] [place] [address]- 4914 Jan, [facility] [place] [facility] [address] [id number] [place] [address]- 2507 December, [facility] [place] [facility] [address] [id number] [place] [address]- 9677 Nov, [facility] [place] [facility] [address] [id number] [place] [address]- 4766 Oct, [facility] [place] [facility] [address] [id number] [place] [address] 2546 19 Oct, 2012 [facility] [address] [id number] [place] [address]- 3994 14 Oct, 2012 [facility] [place] [facility] [address] [id number] [place] [address]- 2546 11 Oct, 2012 [facility] [address] [id number] [place] [address]- 3016 07 Oct, 2012 [facility] [place] [facility] [address] [id number] [place] [address] 2546 07 Oct, 2012 [facility] [address] [id number] [place] [address]- 9566 07 Sep, 2012 [facility] [address] [id number] [place] [address]- 5098 18 Jul, 2012 [facility] [place] [facility] [address] [id number] [place] [address]- 8348 Jul, [facility] [address] [id number] [place] [address]- 6247 Jul, [facility] [place] [facility] [address] [id number] [place] [address]- 1395 Jun, [facility] [address] [id number] [place] [address]- 2076 Jun, [facility] [place] [facility] [address] [id number] [place] [address]- 5422 Jun, [facility] [place] [facility] [address] [id number] [place] [address]- 2850 29 Jun, 2012 [facility] [place] [facility] [address] [id number] [place] [address]- 9296 Mar, [facility] [place] [facility] [address] [id number] [place] [address]- 2546 Mar, [facility] [place] [facility] [address] [id number] [place] [address]- 9768 Feb, [facility] [address] [id number] [place] [address]- 7812 Feb, [facility] [place] [facility] [address] [id number] [place] [address]- 0726 December, [facility] [place] [facility] [address] [id number] [place] [address]- 3596 December, [facility] [place] [facility] [address] [id number] [place] [address]- 6861 Nov, [facility] [address] [id number] [place] [address]- 3832 Oct, [facility] [place] [facility] [address] [id number] [place] [address]- 5046 Oct, [facility] [address] [id number] [place] [address]- 2744 Jul, [facility] [place] [facility] [address] [id number] [place] [address]- 6717 Sep, [facility] [place] [facility] [address] [id number] [place] [address]- 1369 Jul, [facility] [place] [facility] [address] [id number] [place] [address]- 4791 Jan, [facility] [place] [facility] [address] [id number] [place] [address]- 2100 Jun, [facility] [place] [facility] [address] [id number] [place] [address]- 9863 Mar, [facility] [place] [facility] [address] [id number] [place] [address]- 6388 Jan, [facility] [place] [facility] [address] [id number] [place] [address]- 9196 December, [facility] [place] [facility] [address] [id number] [place] [address]- 7397 Oct, [facility] [place] [facility] [address] [facility] [id number] [place] [address]- 7956 Sep, IMMUNIZATIONS No Known Immunizations SOCIAL HISTORY Never Assessed REASON FOR VISIT Denied - Pt needs appt. PLAN OF CARE VITAL SIGNS MEDICATIONS Unknown [...] rods 12/2016 Hospitalization History surgeries Hospitalization History [facility] ED- Back/Left Side Pain 06/06/2017 Hospitalization History [facility] ED- Congested, cough and SOB 11/07/2017
--- OUTSIDE RECORDS SUMMARY | 2018-04-20 16:09 | XMS REPORT ---
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 Name Role Phone NISHI PALENCIA Unavailable PROBLEMS Type Condition ICD9-CM Code CCR94-ZX Code Onset Dates Condition Status SNOMED Code Problem Controlled type 2 diabetes mellitus without complication, without long -term current use of insulin E11.9 Active 011256444 Problem half-way 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 Active 417047107 Problem Lumbago with sciatica, left side M54.42 Active 775095219 Problem Type 2 diabetes mellitus with diabetic neuropathy, unspecified E11.40 Active 89695795 Problem Diabetes type 2, controlled E11.9 Active 11934855 Problem Type 2 diabetes mellitus with hyperglycemia E11.65 Active 517885434 Problem Mood disorder F39 Active 79164681 Problem Diabetic mononeuropathy associated with type 2 diabetes mellitus E11.41 Active 616129736 Problem Other chronic pain G89.29 Active 64329054 Problem Type 2 diabetes mellitus without complications E11.9 Active 117801021 Problem Neuropathy G62.9 Active 101741271 Problem Slow transit constipation K59.01 Active 41999946 ALLERGIES No Information ENCOUNTERS Encounter Location Date Diagnosis [place] [id number] [place] [address] 70269- 2063 Feb, [place] [address] [place] [id number] [place] [address] 69156- 2914 Jan, Pneumonia of both lower lobes due to infectious organism J18.1 and Mood disorder F39 [place] [id number] [place] [address] 20217- 8706 Jan, BMI 40.0-44.9, adult Z68.41 [place] [address] [place] [address] 81090- 7597 Jan, [place] [id number] [place] [address] 95348- 1499 Jan, [facility] [id number] [place] [address] 19045 -7946 Jan, Wheezes R06.2 ; Diabetes type 2, controlled E11.9 and Pneumonia of right lower lobe due to infectious organism J18.1 [facility] [id number] [place] [address] 47523- 1430 Jan, Renal insufficiency N28.9 [facility] [id number] [place] [address] 70026- 0045 Jan, Seborrheic keratoses L82.1 [facility] [id number] [place] [address] 50930- 1877 Jan, [facility] [id number] [place] [address] 09776- 5178 Jan, [facility] [id number] [place] [address] 92359- 4698 Jan, Renal insufficiency N28.9 [facility] [id number] [place] [address] 45271- 8747 Jan, [facility] [id number] [place] [address] 35750- 8068 Jan, Diabetes type 2, controlled E11.9 ; Mood disorder F39 and BMI 40.0-44.9, adult Z68.41 [facility] [address] [place] [address] 87544- 0754 Jan, BMI 40.0-44.9, adult Z68.41 [facility] [id number] [place] [address] 04370- 4597 December, [facility] [id number] [place] [address] 29182- 2211 December, [facility] [id number] [place] [address] 23049- 1408 December, Seborrheic keratoses L82.1 [facility] [address] [address]- 0094 December, Seborrheic keratoses L82.1 [facility] [id number] [address]- 6752 December, [facility] [id number] [place] [address] 10969- 3711 December, [facility] [id number] [place] [address] 26269- 5116 December, BMI 40.0-44.9, adult Z68.41 [facility] [id number] [place] [address] 85531- 9620 December, [facility] [id number] [place] [address] 52939- 4420 December, [facility] [id number] [place] [address] 42482- 6498 Nov, [facility] [id number] [place] [address] 23833- 4670 Nov, [facility] [id number] [place] [address] 34390- 5009 Nov, Seborrheic keratoses L82.1 [facility] [address] [place] [address] 48017- 0301 Nov, Renal insufficiency N28.9 [facility] [address] [place] [address] 60911- 8746 Nov, [facility] [id number] [place] [address] 24441- 2842 Nov, [facility] [id number] [place] [address] 33547- 9941 Nov, [facility] [address] [place] [address] 97081- 7427 Nov, Type 2 diabetes mellitus with diabetic neuropathy, unspecified E11.40 ; Other chronic pain G89.29 ; Bronchitis J40 ; Renal cyst N28.1 ; Pain of left foot M79.672 and Pain in right foot M79.671 [place] [address] [place] [address] 88217- 8823 Oct, Type 2 diabetes mellitus without complications E11.9 [place] [address] [place] [id number] [place] [address] 17076- 3651 Oct, SOB (shortness of breath) R06.02 [place] [address] [address] [id number] [place] [address] 87437- 5369 Oct, SOB (shortness of breath) R06.02 [place] [address] [address] [id number] [place] [address] 52907- 3943 Sep, Type 2 diabetes mellitus without complications E11.9 [place] [address] [id number] [place] [address] 60134- 7347 Sep, Left flank pain R10.9 [place] [address] [address] [id number] [place] [address] 94889- 2954 Sep, BMI 40.0-44.9, adult Z68.41 ; Left flank pain R10.9 and Seborrheic keratoses L82.1 [place] [address] [place] [address] 07905- 0186 Aug, Type 2 diabetes mellitus without complications E11.9 [place] [address] [place] [address] 62609- 7124 Jul, Type 2 diabetes mellitus without complications E11.9 and Abdominal pain, left lower quadrant R10.32 [facility] [address] [place] [id number] [place] [address] Jun, [place] [address] [place] [address] 61076- 2870 Jun, Type 2 diabetes mellitus without complications E11.9 [place] [address] [address]- 4889 Jun, Controlled type 2 diabetes mellitus without complication, without long-term current use of insulin E11.9 and Seborrheic keratoses L82.1 [facility] [address] [address]88[address] May, Acute back pain M54.9 [facility] [id number] [place] [address] 62725- 4082 13 May, 2017 Type 2 diabetes mellitus without complications E11.9 [facility] [address] [id number] [place] [address] 41777- 0041 28 Apr, 2017 Diabetes type 2, controlled E11.9 ; Lumbago with sciatica, left side M54.42 and Diabetic mononeuropathy associated with type 2 diabetes mellitus E11.41 [place] [address] [address] [id number] [place] [address] 71291- 4388 18 Apr, 2017 Type 2 diabetes mellitus without complications E11.9 [facility] [address] [id number] [place] [address] 60688- 6113 05 Apr, 2017 [place] [address] [address] [id number] [place] [address] 97367- 9012 Mar, Type 2 diabetes mellitus without complications E11.9 [facility] [address] [address]- 4634 Feb, Controlled type 2 diabetes mellitus without complication, without long-term current use of insulin E11.9 ; Neuropathy G62.9 and Onychomycosis B35.1 [facility] [address] [address]- 9929 Jan, Type 2 diabetes mellitus with diabetic neuropathy, unspecified E11.40 [place] [address] [id number] [address]- 5395 Jan, Type 2 diabetes mellitus with diabetic neuropathy, unspecified E11.40 [facility] [address] [id number] [place] [address] 70100- 2236 December, Type 2 diabetes mellitus without complications E11.9 [facility] [address] [id number] [place] [address] 24862- 0590 December, Slow transit constipation K59.01 and Pain in right hip M25.551 [place] [address] [address] [id number] [place] [address] 25347- 1214 Nov, Type 2 diabetes mellitus without complications E11.9 [place] [address] [address] [id number] [place] [address] 02312- 6560 Oct, Lumbago with sciatica, left side M54.42 and Other chronic pain G89.29 [place] [address] [address] [id number] [place] [address] 67990- 7071 Sep, Diabetes mellitus E11.9 ; Lumbago with sciatica, left side M54.42 and Type 2 diabetes mellitus without complications E11.9 [place] [address] [address] [id number] [place] [address] 10920- 4001 Aug, Type 2 diabetes mellitus without complications E11.9 and half-way 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 [facility] [id number] [place] [address] [id number] Aug, Dental examination Z01.20 [facility] [id number] [place] [address] [id number] Aug, Dental examination Z01.20 [facility] [id number] [place] [address] 50820 -7073 Aug, Dental abscess K04.7 [facility] [address] [address] [id number] [place] [address] 82763- 9430 Jul, Type 2 diabetes mellitus with hyperglycemia E11.65 and half-way 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 [facility] [address] [id number] [place] [address] 62152- 6188 Jul, [place] [address] [id number] [place] [address] 77214- 1099 Jul, Type 2 diabetes mellitus with diabetic neuropathy, unspecified E11.40 [place] [address] [id number] [place] [address] 39125- 2338 Jun, Type 2 diabetes mellitus with diabetic neuropathy, unspecified E11.40 and Lumbago with sciatica, left side M54.42 [place] [address] [id number] [place] [address] 40218- 8707 May, Controlled type 2 diabetes mellitus without complication, without long-term current use of insulin E11.9 [place] [address] [id number] [place] [address] 23369- 7040 Apr, Controlled type 2 diabetes mellitus without complication, without long-term current use of insulin E11.9 and Lumbar neuritis M54.16 [place] [id number] [place] [address] 44617- 8855 Mar, [place] [id number] [place] [address] 10557- 2013 Mar, Other chronic pain G89.29 ; Pain in left knee M25.562 ; Sciatica, left side M54.32 ; Pain in left hip M25.552 ; Type 2 diabetes mellitus with hyperglycemia E11.65 ; 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 and Mood disorder F39 [place] [address] [place] [id number] [place] [address] 31336- 6875 December, Diabetes type 2, controlled E11.9 [place] [address] [id number] [place] [address] 51347- 2902 December, Diabetes type 2, controlled E11.9 [place] [address] [id number] [place] [address] 48805- 9830 Oct, Shoulder pain, right M25.511 and Knee pain, right M25.561 [place] [address] [id number] [place] [address] 72211- 9799 Oct, Knee pain, left M25.562 [place] [address] [id number] [place] [address] 93386- 8960 Sep, Diabetes mellitus E11.9 and Knee pain M25.569 [facility] [address] [id number] [place] [address] 43229- 5163 Sep, [facility] [address] [address] [id number] [place] [address] 75733- 2913 Jun, Type 2 diabetes mellitus with diabetic neuropathy, unspecified E11.40 and Type 2 diabetes mellitus with hyperglycemia E11.65 [facility] [id number] [place] [address] 84065- 7783 May, Diabetes mellitus E11.9 [facility] [address] [id number] [place] [address] 099556- 5963 May, Diabetes mellitus E11.9 and Lumbago with sciatica, left side M54.42 [facility] [address] [place] [id number] [place] [address] 75818- 7446 Jan, Osteoarthritis of knees, bilateral 715.96 [facility] [id number] [place] [address] 64416- 3064 December, [facility] [address] [id number] [place] [address] 93766- 8278 December, Knee pain, bilateral 719.46 [facility] [id number] [place] [address] 82879- 9139 Nov, Knee pain, bilateral 719.46 [facility] [id number] [place] [address] 72374- 7973 Nov, [facility] [id number] [place] [address] 03118- 8593 Nov, [facility] [id number] [place] [address] 499181- 8059 Oct, [facility] [address] [place] [address] 02110- 9013 Oct, [facility] [id number] [place] [address] [place] [address]- 7296 Aug, [facility] [place] [facility] [address] [id number] [place] [address]- 7260 Aug, [facility] [place] [facility] [address] [id number] [place] [address]- 9979 Jul, [facility] [place] [facility] [address] [id number] [place] 7358 Jul, [facility] [place] [facility] [address] [id number] [place] [address]- 8462 Jun, [facility] [place] [facility] [address] [id number] [place] 0880 Jun, [facility] [place] [facility] [address] [id number] [place] [address]- 4339 May, [facility] [place] [facility] [address] [id number] [place] [address]- 3952 15 May, 2014 [facility] [place] [facility] [address] [id number] [place] [address]- 3554 15 Apr, 2014 [facility] [place] [facility] [address] [id number] [place] [address]- 3151 15 Apr, 2014 [facility] [place] [facility] [address] [id number] [place] [address]- 0515 08 Apr, 2014 [facility] [place] [facility] [address] [id number] [place] [address]- 9347 08 Apr, 2014 [facility] [place] [facility] [address] [id number] [place] [address]- 1403 Feb, [facility] [place] [facility] [address] [id number] [place] [address]- 5447 Feb, [facility] [place] [facility] [address] [id number] [place] [address]- 7090 December, [facility] [place] [facility] [address] [id number] [place] 6458 December, [facility] [place] [facility] [address] [id number] [place] [address]- 3226 December, [facility] [place] [facility] [address] [id number] [place] [address]- 9308 December, [facility] [place] [facility] [address] [id number] [place] [address]- 1392 Nov, [facility] [place] [facility] [address] [id number] [place] [address]- 9922 Nov, [facility] [place] [facility] [address] [id number] [place] [address]- 2062 Oct, [facility] [place] [facility] [address] [id number] [place] [address]- 7240 Oct, [facility] [place] [facility] [address] [id number] [place] [address]- 2426 Aug, [facility] [place] [facility] [address] [id number] [place] [address]- 3004 Aug, [facility] [place] [facility] [address] [id number] [place]- 0889 Jul, [facility] [place] [facility] [address] [id number] [place] [address]- 8656 Jul, [facility] [place] [facility] [address] [id number] [place] [address]- 6009 May, [facility] [place] [facility] [address] [id number] [place] [address]- 9481 Jan, [facility] [place] [facility] [address] [id number] [place] [address]- 4311 Jan, [facility] [place] [facility] [address] [id number] [place] [address]- 2807 December, [facility] [place] [facility] [address] [id number] [place] [address]- 2936 Nov, [facility] [place] [facility] [address] [id number] [place] [address]- 9369 Oct, 2012 [facility] [place] [facility] [address] [id number] [place] [address]- 7892 19 Oct, 2012 [facility] [place] [facility] [address] [id number] [place] [address]- 0566 14 Oct, 2012 [facility] [place] [facility] [address] [id number] [place] [address]- 4626 11 Oct, 2012 [facility] [place] [facility] [address] [id number] [place] [address]- 3316 07 Oct, 2012 [facility] [place] [facility] [address] [id number] [place] [address]- 7233 07 Oct, 2012 [facility] [place] [facility] [address] [id number] [place] [address]- 0426 07 Sep, 2012 [facility] [place] [facility] [address] [id number] [place] [address]- 4552 18 Jul, 2012 [facility] [place] [facility] [address] [id number] [place] [address]- 8694 Jul, [facility] [place] [facility] [address] [id number] [place] [address]- 7618 Jul, [facility] [place] [facility] [address] [id number] [place] [address]- 8113 Jun, [facility] [place] [facility] [address] [id number] [place] [address]- 3562 Jun, [facility] [place] [facility] [address] [id number] [place] [address]- 0656 Jun, [facility] [place] [facility] [address] [id number] [place] [address]- 6706 Jun, [facility] [place] [facility] [address] [id number] [place] [address]- 6776 Mar, [facility] [place] [facility] [address] [id number] [place] [address]- 2616 Mar, [facility] [place] [facility] [address] [id number] [place] [address]- 8311 Feb, [facility] [address] [id number] [place] [address]- 7851 Feb, [facility] [address] [id number] [place] [address] 2546 December, [facility] [address] [id number] [place] [address]- 3786 December, [facility] [address] [id number] [place] [address]- 1203 Nov, [facility] [address] [id number] [place] [address]- 5356 Oct, [facility] [address] [id number] [place] [address] 2546 Oct, [facility] [address] [id number] [place] [address]- 3821 Jul, [facility] [address] [id number] [place] [address]- 5999 Sep, [facility] [address] [id number] [place] [address]- 3127 Jul, [facility] [address] [id number] [place] [address]- 3853 Jan, [facility] [address] [id number] [place] [address]- 1203 Jun, [facility] [address] [id number] [place] [address]- 2540 Mar, [facility] [address] [id number] [place] [address]- 8359 Jan, [facility] [address] [id number] [place] [address]- 2546 December, [facility] [address] [id number] [place] [address]- 4162 Oct, [facility] [address] [facility] [id number] [place] [address]- 3095 Sep, IMMUNIZATIONS No Known Immunizations SOCIAL HISTORY Never Assessed REASON FOR VISIT labs for CT PLAN OF CARE VITAL SIGNS MEDICATIONS Unknown [...] rods 12/2016 Hospitalization History surgeries Hospitalization History [facility] ED- Back/Left Side Pain 06/06/2017 Hospitalization History [facility] ED- Congested, cough and SOB 11/07/2017
--- OUTSIDE RECORDS SUMMARY | 2018-04-20 16:10 | XMS REPORT ---
Author Author BLAYNE CONTRERAS [facility] Address [address] [place] [address] Care Team Providers [place] Treasurer Name Role Phone BLAYNE CONTRERAS Unavailable PROBLEMS Type Condition ICD9-CM Code AAM04-QB Code Onset Dates Condition Status SNOMED Code Problem Type 2 diabetes mellitus with hyperglycemia E11.65 Active 878513704 Problem Lumbago with sciatica, left side M54.42 Active 077631674 Problem Controlled type 2 diabetes mellitus without complication, without long -term current use of insulin E11.9 Active 986564435 Problem Type 2 diabetes mellitus with diabetic neuropathy, unspecified E11.40 Active 74107420 Problem Diabetes type 2, controlled E11.9 Active 59545247 Problem Diabetic mononeuropathy associated with type 2 diabetes mellitus E11.41 Active 162425256 Problem Neuropathy G62.9 Active 697288213 Problem Type 2 diabetes mellitus without complications E11.9 Active 558442659 Problem 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 Active 194222669 Problem Slow transit constipation K59.01 Active 79245891 Problem Other chronic pain G89.29 Active 73713069 ALLERGIES No Information ENCOUNTERS Encounter Location Date Diagnosis [facility] [id number] [place] [address] 48917- 6512 Jan, [facility] [id number] [place] [address] 77082- 7982 December, [facility] [id number] [place] [address] 76041- 3523 December, BMI 40.0-44.9, adult Z68.41 [facility] [id number] [place] [address] 97372- 8568 December, [facility] [id number] [place] [address] 74819- 0260 December, [facility] [id number] [place] [address] 45033- 4544 Nov, [facility] [id number] [place] [address] 12800- 4670 Nov, [facility] [id number] [place] [address] 24334- 1743 Nov, Seborrheic keratoses L82.1 [facility] [address] 32280- 2997 Nov, Renal insufficiency N28.9 [facility] [id number] [place] [address] 29969- 0885 Nov, [facility] [id number] [place] [address] 61807- 7666 Nov, [facility] [id number] [place] [address] 49184- 9898 Nov, [facility] [id number] [place] [address] 01138- 2575 Nov, Type 2 diabetes mellitus with diabetic neuropathy, unspecified E11.40 ; Other chronic pain G89.29 ; Bronchitis J40 ; Renal cyst N28.1 ; Pain of left foot M79.672 and Pain in right foot M79.671 [facility] [id number] [place] [address] 95950- 0585 Oct, Type 2 diabetes mellitus without complications E11.9 [facility] [id number] [place] [address] 40999- 5578 Oct, SOB (shortness of breath) R06.02 [facility] [id number] [place] [address] 78850- 9689 Oct, SOB (shortness of breath) R06.02 [facility] [id number] [place] [address] 85198- 4095 Sep, Type 2 diabetes mellitus without complications E11.9 [facility] [address] [address] 2699 12 Sep, 2017 Left flank pain R10.9 [facility] [id number] [place] [address] 50549- 6050 Sep, BMI 40.0-44.9, adult Z68.41 ; Left flank pain R10.9 and Seborrheic keratoses L82.1 [facility] [id number] [place] [address] 67900- 3616 Aug, Type 2 diabetes mellitus without complications E11.9 [facility] [id number] [place] [address] 91696- 9251 Jul, Type 2 diabetes mellitus without complications E11.9 and Abdominal pain, left lower quadrant R10.32 [facility] [address] [place] [id number] [place] [address] Jun, [facility] [id number] [place] [address] 76474- 5863 Jun, Type 2 diabetes mellitus without complications E11.9 [facility] [address] [place] [address] 08408- 2996 Jun, Controlled type 2 diabetes mellitus without complication, without long-term current use of insulin E11.9 and Seborrheic keratoses L82.1 [facility] [address] [address] May, Acute back pain M54.9 [facility] [id number] [place] [address] 09958- 1554 13 May, 2017 Type 2 diabetes mellitus without complications E11.9 [facility] [id number] [place] [address] 40020- 1590 28 Apr, 2017 Diabetes type 2, controlled E11.9 ; Lumbago with sciatica, left side M54.42 and Diabetic mononeuropathy associated with type 2 diabetes mellitus E11.41 [facility] [id number] [place] [address] 25094- 9691 Apr, Type 2 diabetes mellitus without complications E11.9 [facility] [address] [address]- 1493 Apr, [facility] [id number] [place] [address] 97768- 3708 Mar, Type 2 diabetes mellitus without complications E11.9 [facility] [id number] [place] [address] 46321- 8004 Feb, Controlled type 2 diabetes mellitus without complication, without long-term current use of insulin E11.9 ; Neuropathy G62.9 and Onychomycosis B35.1 [facility] [id number] [place] [address] 48317- 3171 Jan, Type 2 diabetes mellitus with diabetic neuropathy, unspecified E11.40 [facility] [id number] [place] [address] 99000- 1850 Jan, Type 2 diabetes mellitus with diabetic neuropathy, unspecified E11.40 [facility] [address] [place] [address] 28353- 1323 December, Type 2 diabetes mellitus without complications E11.9 [facility] [address] [place] [address] 88333- 3418 December, Slow transit constipation K59.01 and Pain in right hip M25.551 [facility] [address] [address]- 8866 Nov, Type 2 diabetes mellitus without complications E11.9 [facility] [address] [address]- 9159 Oct, Lumbago with sciatica, left side M54.42 and Other chronic pain G89.29 [facility] [address] [address]- 1167 Sep, Diabetes mellitus E11.9 ; Lumbago with sciatica, left side M54.42 and Type 2 diabetes mellitus without complications E11.9 [place] [address] [address]- 9118 Aug, Type 2 diabetes mellitus without complications E11.9 and 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 [facility] [address] [id number] Aug, Dental examination Z01.20 [facility] [address] [place] [address] [id number] Aug, Dental examination Z01.20 [facility] [id number] [place] [address] 26154 -1539 Aug, Dental abscess K04.7 [facility] [id number] [place] [address] 50097- 2722 Jul, Type 2 diabetes mellitus with hyperglycemia E11.65 and USP 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 [place] [id number] [place] [address] 20000- 4995 Jul, [place] [id number] [place] [address] 91968- 6996 Jul, Type 2 diabetes mellitus with diabetic neuropathy, unspecified E11.40 [facility] [id number] [place] [address] 49276- 7849 Jun, Type 2 diabetes mellitus with diabetic neuropathy, unspecified E11.40 and Lumbago with sciatica, left side M54.42 [place] [id number] [place] [address] 40772- 2229 May, Controlled type 2 diabetes mellitus without complication, without long-term current use of insulin E11.9 [facility] [id number] [place] [address] 78159- 2611 Apr, Controlled type 2 diabetes mellitus without complication, without long-term current use of insulin E11.9 and Lumbar neuritis M54.16 [place] [address] [place] [address] 13978- 2750 Mar, [place] [id number] [place] [address] 12227- 9088 Mar, Other chronic pain G89.29 ; Pain in left knee M25.562 ; Sciatica, left side M54.32 ; Pain in left hip M25.552 ; Type 2 diabetes mellitus with hyperglycemia E11.65 ; USP 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 and Mood disorder F39 [facility] [id number] [place] [address] 56652- 3012 December, Diabetes type 2, controlled E11.9 [facility] [id number] [place] [address] 91148- 4484 December, Diabetes type 2, controlled E11.9 [facility] [id number] [place] [address] 44904- 9133 Oct, Shoulder pain, right M25.511 and Knee pain, right M25.561 [place] [id number] [place] [address] 43155- 6490 Oct, Knee pain, left M25.562 [facility] [id number] [place] [address] 22166- 6234 Sep, Diabetes mellitus E11.9 and Knee pain M25.569 [facility] [id number] [place] [address] 09788- 9281 Sep, [facility] [id number] [place] [address] 17319- 6815 Jun, Type 2 diabetes mellitus with diabetic neuropathy, unspecified E11.40 and Type 2 diabetes mellitus with hyperglycemia E11.65 [facility] [id number] [place] [address] 90903- 9429 May, Diabetes mellitus E11.9 [facility] [id number] [place] [address] 74956- 1646 May, Diabetes mellitus E11.9 and Lumbago with sciatica, left side M54.42 [place] [id number] [place] [address] 43600- 7297 Jan, Osteoarthritis of knees, bilateral 715.96 [facility] [address] [address] December, [facility] [id number] [place] [address] 59450- 4548 December, Knee pain, bilateral 719.46 [facility] [id number] [place] [address] 83824- 8238 Nov, Knee pain, bilateral 719.46 [facility] [address] [facility] [id number] [place] [address] 405219- 6687 Nov, [facility] [id number] [place] [address] 89909- 4398 Nov, [facility] [id number] [place] [address] 542721- 4520 Oct, [facility] [id number] [place] [address] 93033- 8044 Oct, [facility] [address] [address]- 7757 Aug, [facility] [address] [place] [address] 681090- 3988 Aug, [facility] [address] 4736 Jul, [facility] [address] [address]- 3565 Jul, [facility] [address] [address]- 9509 Jun, [facility] [id number] [address]- 8576 Jun, [facility] [id number] [address]- 3876 May, [facility] [id number] [place] [address] 50841- 3025 15 May, 2014 [facility] [place] [facility] [address] [id number] [place] [address]- 1307 15 Apr, 2014 [facility] [place] [facility] [address] [id number] [place]160 15 Apr, 2014 [facility] [place] [facility] [address] [id number] [place] [address]- 3191 08 Apr, 2014 [facility] [place] [facility] [address] [id number] [place] [address]- 0348 08 Apr, 2014 [facility] [place] [facility] [address] [id number] [place] [address]- 4429 Feb, [facility] [place] [facility] [address] [id number] [place] [address]- 7344 Feb, [facility] [place] [facility] [address] [id number] [place] [address]- 4959 December, [facility] [place] [facility] [address] [id number] [place] [address]- 5606 December, [facility] [place] [facility] [address] [id number] [place] [address]- 9793 December, [facility] [place] [facility] [address] [id number] [place] [address]- 0004 December, [facility] [place] [facility] [address] [id number] [place] [address]- 4142 Nov, [facility] [place] [facility] [address] [id number] [place] [address]- 4760 Nov, [facility] [place] [facility] [address] [id number] [place] [address]- 0698 Oct, [facility] [place] [facility] [address] [id number] [place] [address]- 4542 Oct, [facility] [place] [facility] [address] [id number] [place] [address]- 6303 Aug, [facility] [place] [facility] [address] [id number] [place] [address]- 7076 Aug, [facility] [address] [id number] [place] [address]- 5316 Jul, [facility] [place] [facility] [address] [id number] [place] [address]- 2546 Jul, [facility] [address] [id number] [place] [address] 2546 May, [facility] [address] [id number] [place] [address] 254 Jan, [facility] [address] [id number] [place] [address]- 3206 Jan, [facility] [address] [id number] [place] [address]- 7826 December, [facility] [address] [id number] [place] [address]- 2546 Nov, [facility] [address] [id number] [place] [address]- 2884 Oct, [facility] [address] [id number] [place] [address]- 4736 Oct, [facility] [address] [id number] [place] [address]- 2596 14 Oct, 2012 [facility] [address] [id number] [place] [address]- 2546 11 Oct, 2012 [facility] [address] [id number] [place] [address]- 2546 07 Oct, 2012 [facility] [place] [facility] [address] [id number] [place] [address]- 2546 07 Oct, 2012 [facility] [place] [facility] [address] [id number] [place] [address]- 2546 07 Sep, 2012 [facility] [place] [facility] [address] [id number] [place] [address]- 0882 Jul, [facility] [place] [facility] [address] [id number] [place] [address]- 7445 Jul, [facility] [place] [facility] [address] [id number] [place] [address]- 0890 Jul, [facility] [place] [facility] [address] [id number] [place] [address]- 6988 Jun, [facility] [place] [facility] [address] [id number] [place] [address]- 0643 Jun, [facility] [place] [facility] [address] [id number] [place] [address]- 6322 Jun, [facility] [place] [facility] [address] [id number] [place] [address]- 2174 Jun, [facility] [place] [facility] [address] [id number] [place] [address]- 5992 Mar, [facility] [place] [facility] [address] [id number] [place] [address]- 1488 Mar, [facility] [place] [facility] [address] [id number] [place] [address]- 2293 Feb, [facility] [place] [facility] [address] [id number] [place] [address]- 4266 Feb, [facility] [place] [facility] [address] [id number] [place] [address]- 8015 December, [facility] [place] [facility] [address] [id number] [address]- 1958 December, [facility] [place] [facility] [address] [id number] [place] [address]- 8600 Nov, [facility] [place] [facility] [address] [id number] [place] [address]- 2506 Oct, [facility] [place] [facility] [address] [id number] [place] [address]- 2546 Oct, [facility] [place] [facility] [id number] [address]- 4976 Jul, [facility] [id number] [address]- 4886 Sep, [facility] [address] [address]- 5516 Jul, [facility] [address] [address]- 1438 Jan, [facility] [address] [address]- 7971 Jun, [facility] [address] [place] [address] 45643- 0207 Mar, [facility] [address] [address]- 1446 Jan, [facility] [address] [address]- 6275 December, [facility] [address] [address]- 7175 Oct, [facility] [address] [address]- 4407 Sep, IMMUNIZATIONS No Known Immunizations SOCIAL HISTORY Never Assessed REASON FOR VISIT Controlled Med Refill 05/24/17 PLAN OF CARE VITAL SIGNS MEDICATIONS Medication Instructions Dosage Frequency Start Date End Date Duration Status Oxycodone-Acetaminophen 10-325 MG Orally every 6 hrs 1 tablet as needed 6h May, 28 days Active RESULTS No Results PROCEDURES [...] rods 12/2016 Hospitalization History surgeries Hospitalization History [facility] ED- Back/Left Side Pain 06/06/2017 Hospitalization History [facility] ED- Congested, cough and SOB 11/07/2017
--- OUTSIDE RECORDS SUMMARY | 2018-04-20 16:10 | XMS REPORT ---
Author Author NISHI PALENCIA Organization [facility] Address [address] [place] [address] Care Team Providers Care Clinical Pathologist Name Role Phone NISHI PALENCIA Unavailable PROBLEMS Type Condition ICD9-CM Code IXS30-SF Code Onset Dates Condition Status SNOMED Code Problem Type 2 diabetes mellitus with hyperglycemia E11.65 Active 395869858 Problem Lumbago with sciatica, left side M54.42 Active 084115821 Problem Controlled type 2 diabetes mellitus without complication, without long -term current use of insulin E11.9 Active 877865554 Problem Type 2 diabetes mellitus with diabetic neuropathy, unspecified E11.40 Active 21567882 Problem Diabetes type 2, controlled E11.9 Active 24213966 Problem Diabetic mononeuropathy associated with type 2 diabetes mellitus E11.41 Active 962022568 Problem Neuropathy G62.9 Active 289106357 Problem Type 2 diabetes mellitus without complications E11.9 Active 172641539 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 113738062 Problem Slow transit constipation K59.01 Active 62223009 Problem Other chronic pain G89.29 Active 73693630 ALLERGIES No Information ENCOUNTERS Encounter Location Date Diagnosis [place] [address] [address] December, [place] [id number] [place] [address] 99048- 8554 December, [facility] [id number] [place] [address] 01456- 5889 Nov, [place] [address] [place] [id number] [place] [address] 47999- 4362 Nov, [facility] [address], [place] [address] Nov, Seborrheic keratoses L82.1 [place] [address] [address]- [address] Nov, Renal insufficiency N28.9 [place] [address] [address]- 9761 Nov, [place] [address] [address]- 8470 Nov, [place] [address] 80882- 0701 Nov, [place] [address] 8[address]09- 4013 Nov, Type 2 diabetes mellitus with diabetic neuropathy, unspecified E11.40 ; Other chronic pain G89.29 ; Bronchitis J40 ; Renal cyst N28.1 ; Pain of left foot M79.672 and Pain in right foot M79.671 [place] [address] [address]- 1159 Oct, Type 2 diabetes mellitus without complications E11.9 [place] [address] 67[address]- 4433 Oct, SOB (shortness of breath) R06.02 [place] [address] 27057- 1715 Oct, SOB (shortness of breath) R06.02 [place] [address] 0[address]11- 4099 Sep, Type 2 diabetes mellitus without complications E11.9 [place] [address] 48606- 3101 Sep, Left flank pain R10.9 [place] [address] [address]- 3131 Sep, BMI 40.0-44.9, adult Z68.41 ; Left flank pain R10.9 and Seborrheic keratoses L82.1 [place] [address] [place] [address] 6759 Aug, Type 2 diabetes mellitus without complications E11.9 [facility] [address] [id number] [place] [address] 23048- 8900 Jul, Type 2 diabetes mellitus without complications E11.9 and Abdominal pain, left lower quadrant R10.32 [facility] [address] [id number] [address] Jun, [facility] [address] [id number] [place] [address] 32558- 0217 Jun, Type 2 diabetes mellitus without complications E11.9 [facility] [address] [id number] [place] [address] 98256- 4250 02 Jun, 2017 Controlled type 2 diabetes mellitus without complication, without long-term current use of insulin E11.9 and Seborrheic keratoses L82.1 [facility] [address] [place] [address] 99377 -9513 May, Acute back pain M54.9 [facility] [address] [id number] [place] [address] 83116- 4030 13 May, 2017 Type 2 diabetes mellitus without complications E11.9 [facility] [address] [id number] [place] [address] 53172- 0010 28 Apr, 2017 Diabetes type 2, controlled E11.9 ; Lumbago with sciatica, left side M54.42 and Diabetic mononeuropathy associated with type 2 diabetes mellitus E11.41 [facility] [address] [address] 18 Apr, 2017 Type 2 diabetes mellitus without complications E11.9 [facility] [id number] [place] [address] 02924- 8101 05 Apr, 2017 [facility] [id number] [place] [address] 75139- 0909 Mar, Type 2 diabetes mellitus without complications E11.9 [facility] [address] [id number] [place] [address] 45935- 7095 Feb, Controlled type 2 diabetes mellitus without complication, without long-term current use of insulin E11.9 ; Neuropathy G62.9 and Onychomycosis B35.1 [place] [address] [place] [address] 63502- 0846 Jan, Type 2 diabetes mellitus with diabetic neuropathy, unspecified E11.40 [place] [address] [place] [id number] [place] [address] 48000- 3441 Jan, Type 2 diabetes mellitus with diabetic neuropathy, unspecified E11.40 [place] [address] [place] [id number] [place] [address] 17201- 7404 December, Type 2 diabetes mellitus without complications E11.9 [place] [address] [place] [id number] [place] [address] 89349- 0933 December, Slow transit constipation K59.01 and Pain in right hip M25.551 [place] [address] [place] [id number] [place] [address] 79983- 3983 Nov, Type 2 diabetes mellitus without complications E11.9 [place] [address] [place] [id number] [place] [address] 62489- 3807 Oct, Lumbago with sciatica, left side M54.42 and Other chronic pain G89.29 [place] [address] [place] [id number] [place] [address] 92229- 4977 Sep, Diabetes mellitus E11.9 ; Lumbago with sciatica, left side M54.42 and Type 2 diabetes mellitus without complications E11.9 [place] [address] [place] [address] 74958- 1036 Aug, Type 2 diabetes mellitus without complications E11.9 and USP 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 [facility] [address] [place] [address] [id number] Aug, Dental examination Z01.20 [facility] [address] [place] [id number] [place] [address] [id number] Aug, Dental examination Z01.20 [facility] [address] [place] [address] 87941 -2461 Aug, Dental abscess K04.7 [facility] [address] [place] [id number] [place] [address] 88564- 3781 Jul, Type 2 diabetes mellitus with hyperglycemia E11.65 and 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 [place] [address] [place] [id number] [place] [address] 52103- 3619 Jul, [place] [address] [place] [id number] [place] [address] 02396- 0563 Jul, Type 2 diabetes mellitus with diabetic neuropathy, unspecified E11.40 [place] [address] [place] [id number] [place] [address] 64085- 7388 Jun, Type 2 diabetes mellitus with diabetic neuropathy, unspecified E11.40 and Lumbago with sciatica, left side M54.42 [place] [address] [place] [id number] [place] [address] 77856- 8499 May, Controlled type 2 diabetes mellitus without complication, without long-term current use of insulin E11.9 [place] [address] [place] [id number] [place] [address] 42163- 9833 Apr, Controlled type 2 diabetes mellitus without complication, without long-term current use of insulin E11.9 and Lumbar neuritis M54.16 [place] [address] [place] [id number] [place] [address] 31018- 0904 Mar, [place] [address] [place] [id number] [place] [address] 06095- 5247 Mar, Other chronic pain G89.29 ; Pain in left knee M25.562 ; Sciatica, left side M54.32 ; Pain in left hip M25.552 ; Type 2 diabetes mellitus with hyperglycemia E11.65 ; 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 and Mood disorder F39 [place] [address] [place] [id number] [place] [address] 69821- 3384 December, Diabetes type 2, controlled E11.9 [facility] [address] [id number] [place] [address] 28265- 1844 December, Diabetes type 2, controlled E11.9 [facility] [address] [place] [id number] [place] [address] 88804- 9146 Oct, Shoulder pain, right M25.511 and Knee pain, right M25.561 [facility] [address] [place] [id number] [place] [address] 32647- 8413 Oct, Knee pain, left M25.562 [place] [address] [place] [id number] [place] [address] 13356- 1930 Sep, Diabetes mellitus E11.9 and Knee pain M25.569 [place] [address] [place] [id number] [place] [address] 05985- 1449 Sep, [place] [address] [place] [id number] [place] [address] 91162- 1304 Jun, Type 2 diabetes mellitus with diabetic neuropathy, unspecified E11.40 and Type 2 diabetes mellitus with hyperglycemia E11.65 [place] [address] [place] [id number] [place] [address] 18825- 0567 May, Diabetes mellitus E11.9 [place] [address] [place] [id number] [place] [address] 63954- 3895 May, Diabetes mellitus E11.9 and Lumbago with sciatica, left side M54.42 [place] [address] [place] [id number] [place] [address] 25187- 1989 Jan, Osteoarthritis of knees, bilateral 715.96 [place] [address] [place] [id number] [place] [address] 41305- 3655 December, [place] [address] [place] [id number] [place] [address] 66437- 2890 December, Knee pain, bilateral 719.46 [place] [address] [place] [id number] [place] [address] 39278- 8889 Nov, Knee pain, bilateral 719.46 [facility] [address] [id number] [place] [address]- 6608 14 Nov, 2014 [facility] [address] [facility] [id number] [address]- 3354 Nov, [facility] [address] [facility] [id number] [place] [address]- 5542 Oct, [facility] [place] [facility] [address] [id number] [place] [address], [place] [address]- 8181 Oct, [facility] [address] [facility] [id number] [place] [address], [place] [address]- 8014 Aug, [facility] [address] [facility] [id number] [place] [address], [place] [address]- 7268 Aug, [facility] [address] [place] [address] 09592- 0136 Jul, [facility] [place] [facility] [address] [facility] [id number] [place] [address]- 1696 Jul, [facility] [address] [place] [address]- 9292 Jun, [facility] [address] [place] [id number] [address]- 6849 Jun, [facility] [address] [facility] [id number] [address]- 0889 15 May, 2014 [facility] [place] [facility] [address] [facility] [id number] [address]- 9720 15 May, 2014 [facility] [place] [facility] [address] [facility] [id number] [address]- 4065 15 Apr, 2014 [facility] [place] [facility] [address] [facility] [id number], [place] [address]- 1679 15 Apr, 2014 [facility] [place] [facility] [address], [place] [address]- 9586 08 Apr, 2014 [facility] [place] [facility] [address] [id number] [place] [address]- 9886 Apr, [facility] [place] [facility] [address] [id number] [place] [address]- 4573 Feb, [facility] [place] [facility] [address] [id number] [place] [address]- 2546 Feb, [facility] [place] [facility] [address] [id number] [place] [address]- 8366 December, [facility] [place] [facility] [address] [id number] [place] [address]- 7991 December, [facility] [place] [facility] [address] [id number] [place] [address]- 6269 December, [facility] [place] [facility] [address] [id number] [place] [address]- 3127 December, [facility] [place] [facility] [address] [id number] [place] [address]- 5276 Nov, [facility] [place] [facility] [address] [id number] [place] [address]- 8278 Nov, [facility] [place] [facility] [address] [id number] [place] [address]- 8030 Oct, [facility] [place] [facility] [address] [id number] [place] [address]- 3944 Oct, [facility] [place] [facility] [address] [id number] [place] [address]- 0264 Aug, [facility] [place] [facility] [address] [id number] [place] [address]- 7825 Aug, [facility] [place] [facility] [address] [id number] [place] [address]- 3116 Jul, [facility] [place] [facility] [address] [id number] [place] [address]- 9686 Jul, [facility] [place] [facility] [address] [id number] [place] [address]- 6727 May, [facility] [address] [id number] [place] [address]- 7296 Jan, [facility] [place] [facility] [address] [id number] [place] [address]- 0336 Jan, [facility] [address] [facility] [id number] [place] [address]- 3290 December, [facility] [place] [facility] [address] [id number] [place] [address]- 2546 Nov, [facility] [address] [id number] [place] [address]- 0308 25 Oct, 2012 [facility] [place] [facility] [address] [id number] [place] [address]- 6036 19 Oct, 2012 [facility] [place] [facility] [address] [id number] [place] [address]- 6173 14 Oct, 2012 [facility] [place] [facility] [address] [id number] [place] [address]- 5829 Oct, [facility] [address] [id number] [place] [address]- 0392 07 Oct, 2012 [facility] [place] [facility] [address] [facility] [id number] [place] [address]- 6160 07 Oct, 2012 [facility] [place] [facility] [address] [id number] [place] [address]- 2546 07 Sep, 2012 [facility] [place] [facility] [address] [id number], [place] [address]- 2543 Jul, [facility] [place] [facility] [address] [id number] [place] [address]- 2546 Jul, [facility] [place] [facility] [address] [facility] [id number] [place] [address]- 3866 Jul, [facility] [place] [facility] [address] [facility] [id number] [place] [address]- 2546 Jun, [facility] [place] [facility] [address] [id number] [place] [address]- 2772 Jun, [facility] [address] [id number] [place] [address]- 5795 Jun, [facility] [place] [facility] [address] [id number] [place] [address]- 0336 Jun, [facility] [address] [id number] [place] [address]- 5886 Mar, [facility] [place] [facility] [address] [id number] [place] [address]- 3938 Mar, [facility] [address] [id number] [place] [address]- 5089 Feb, [facility] [address] [id number] [place] [address]- 9155 Feb, [facility] [address] [id number] [place] [address]- 8945 December, [facility] [address] [id number] [place] [address]- 1206 December, [facility] [address] [id number] [place] [address]- 3619 Nov, [facility] [address] [id number] [place] [address]- 3184 Oct, [facility] [place] [facility] [address] [id number] [place] [address]- 8036 Oct, [facility] [place] [facility] [address] [id number] [place] [address]- 8608 Jul, [facility] [place] [facility] [address] [id number] [place] [address]- 8666 Sep, [facility] [place] [facility] [address] [id number] [place] [address]- 2546 Jul, [facility] [place] [facility] [address] [id number] [place] [address]- 8915 Jan, [facility] [address] [facility] [id number], [place] [address]- 2546 Jun, [facility] [address] [place] [id number] [address]- 2546 Mar, [facility] [id number] [address]- 2546 Jan, [facility] [id number] [address]- 2546 December, [facility] [id number] [address]- 2546 Oct, [facility] [id number] [address]- 2546 Sep, IMMUNIZATIONS No Known Immunizations SOCIAL HISTORY Never Assessed REASON FOR VISIT Controlled Med Refill PLAN OF CARE VITAL SIGNS MEDICATIONS Medication Instructions Dosage Frequency Start Date End Date Duration Status Oxycodone-Acetaminophen 10-325 MG Orally every 6 hrs 1 tablet as needed 6h 18 Apr, 2017 28 days Active RESULTS No Results PROCEDURES [...]
--- OUTSIDE RECORDS SUMMARY | 2018-04-20 16:11 | XMS REPORT ---
Author Author NISHI PALENCIA Organization [facility] Address [address] [place] [address] Care Team Providers Care Roller Operator Name Role Phone NISHI PALENCIA Unavailable PROBLEMS Type Condition ICD9-CM Code GUH06-GV Code Onset Dates Condition Status SNOMED Code Problem Controlled type 2 diabetes mellitus without complication, without long -term current use of insulin E11.9 Active 830446913 Problem FDC 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 Active 038665775 Problem Lumbago with sciatica, left side M54.42 Active 614905689 Problem Type 2 diabetes mellitus with diabetic neuropathy, unspecified E11.40 Active 49585636 Problem Diabetes type 2, controlled E11.9 Active 99356726 Problem Type 2 diabetes mellitus with hyperglycemia E11.65 Active 126465348 Problem Mood disorder F39 Active 80736904 Problem Diabetic mononeuropathy associated with type 2 diabetes mellitus E11.41 Active 786858073 Problem Other chronic pain G89.29 Active 24469468 Problem Type 2 diabetes mellitus without complications E11.9 Active 811941026 Problem Neuropathy G62.9 Active 733850860 Problem Slow transit constipation K59.01 Active 88424257 ALLERGIES No Known Allergies ENCOUNTERS Encounter Location Date Diagnosis [facility] [id number] [address] Feb, [facility] [address], [place] [address] Jan, [facility] [id number] [place] [address]48- 4093 Jan, Renal insufficiency N28.9 [facility] [address], [place] [address] Jan, [facility] [id number] [place] [address] 23649- 7179 Jan, Diabetes type 2, controlled E11.9 ; Mood disorder F39 and BMI 40.0-44.9, adult Z68.41 [facility] [id number] [place] [address] 79122- 3264 Jan, BMI 40.0-44.9, adult Z68.41 [facility] [id number] [address]- 1059 December, [facility] [id number] [place] [address] 63745- 8601 December, [facility] [id number] [place] [address] 33991- 5330 December, Seborrheic keratoses L82.1 [facility] [id number] [place] [address], [place] [address]- 0941 December, Seborrheic keratoses L82.1 [facility] [id number] [place] [address] 30622- 3809 December, [facility] [id number] [address] 4562 December, [facility] [id number] [place] [address] 69597- 6662 December, BMI 40.0-44.9, adult Z68.41 [facility] [address], [place] [address]- 6777 December, [facility] [id number] [address]- 9644 December, [facility] [address], [place] [address]- 3316 Nov, [facility] [id number] [address]- 5167 Nov, [facility] [address], [place] [address]- 4326 Nov, Seborrheic keratoses L82.1 [facility] [id number] [place] [address] 40319- 3705 Nov, Renal insufficiency N28.9 [facility] [address] [address]- 0467 Nov, [facility] [address] [address]- 7225 Nov, [facility] [address] 6[address]10- 4317 Nov, [facility] [address] 0[address]- 8650 Nov, Type 2 diabetes mellitus with diabetic neuropathy, unspecified E11.40 ; Other chronic pain G89.29 ; Bronchitis J40 ; Renal cyst N28.1 ; Pain of left foot M79.672 and Pain in right foot M79.671 [facility] [address] 24[address]- 5444 Oct, Type 2 diabetes mellitus without complications E11.9 [facility] [address] 05454- 5149 Oct, SOB (shortness of breath) R06.02 [facility] [id number] [place] [address] 60193- 0052 Oct, SOB (shortness of breath) R06.02 [facility] [address] 05803- 9661 Sep, Type 2 diabetes mellitus without complications E11.9 [facility] [address] 43594- 7811 Sep, Left flank pain R10.9 [facility] [address] 87688- 9428 Sep, BMI 40.0-44.9, adult Z68.41 ; Left flank pain R10.9 and Seborrheic keratoses L82.1 [facility] [address], [place] [address]- 8879 Aug, Type 2 diabetes mellitus without complications E11.9 [facility] [address], [place] [address]- 0906 Jul, Type 2 diabetes mellitus without complications E11.9 and Abdominal pain, left lower quadrant R10.32 [facility] [address] [place] [id number] [address] Jun, [facility] [address], [place] [address]- 50[address] Jun, Type 2 diabetes mellitus without complications E11.9 [facility] [address], [place] [address] 4162 Jun, Controlled type 2 diabetes mellitus without complication, without long-term current use of insulin E11.9 and Seborrheic keratoses L82.1 [facility] [address], [place] [address] May, Acute back pain M54.9 [facility] [address] [place] [address] 46933- 6536 13 May, 2017 Type 2 diabetes mellitus without complications E11.9 [facility] [address], [place] [address]- 0400 28 Apr, 2017 Diabetes type 2, controlled E11.9 ; Lumbago with sciatica, left side M54.42 and Diabetic mononeuropathy associated with type 2 diabetes mellitus E11.41 [facility] [address], [place] [address]- 5575 Apr, Type 2 diabetes mellitus without complications E11.9 [facility] [address], [place] [address] 4200 05 Apr, 2017 [facility] [address], [place] [address] 8901 Mar, Type 2 diabetes mellitus without complications E11.9 [facility] [id number] [place] [address] 29140- 0548 Feb, Controlled type 2 diabetes mellitus without complication, without long-term current use of insulin E11.9 ; Neuropathy G62.9 and Onychomycosis B35.1 [facility] [id number] [place] [address] 29049- 2484 15 Jan, 2017 Type 2 diabetes mellitus with diabetic neuropathy, unspecified E11.40 [facility] [id number] [place] [address] 85237- 9447 Jan, Type 2 diabetes mellitus with diabetic neuropathy, unspecified E11.40 [facility] [id number] [place] [address] 47697- 2778 December, Type 2 diabetes mellitus without complications E11.9 [facility] [id number] [place] [address] 60202- 0453 December, Slow transit constipation K59.01 and Pain in right hip M25.551 [facility] [id number] [place] [address] 35716- 3714 Nov, Type 2 diabetes mellitus without complications E11.9 [facility] [id number] [place] [address] 70326- 6208 Oct, Lumbago with sciatica, left side M54.42 and Other chronic pain G89.29 [facility] [id number] [place] [address] 22030- 6620 Sep, Diabetes mellitus E11.9 ; Lumbago with sciatica, left side M54.42 and Type 2 diabetes mellitus without complications E11.9 [facility] [id number] [place] [address] 22008- 3865 Aug, Type 2 diabetes mellitus without complications E11.9 and FDC 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 [facility] [address] [place] [address] [id number] Aug, Dental examination Z01.20 [facility] [id number] [place] [address] [id number] Aug, Dental examination Z01.20 [facility] [address] [place] [address] 95642 -8583 Aug, Dental abscess K04.7 [facility] [address] [place] [address] 80859- 6400 Jul, Type 2 diabetes mellitus with hyperglycemia E11.65 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 [facility] [id number] [place] [address] 35739- 9929 Jul, [facility] [id number] [place] [address] 87935- 0801 Jul, Type 2 diabetes mellitus with diabetic neuropathy, unspecified E11.40 [facility] [id number] [place] [address] 29075- 4425 Jun, Type 2 diabetes mellitus with diabetic neuropathy, unspecified E11.40 and Lumbago with sciatica, left side M54.42 [facility] [address] [place] [address] 64114- 8671 May, Controlled type 2 diabetes mellitus without complication, without long-term current use of insulin E11.9 [facility] [id number] [place] [address] 58223- 2342 08 Apr, 2016 Controlled type 2 diabetes mellitus without complication, without long-term current use of insulin E11.9 and Lumbar neuritis M54.16 [facility] [id number] [place] [address] 00121- 8165 Mar, [facility] [id number] [place] [address] 13507- 7123 Mar, Other chronic pain G89.29 ; Pain in left knee M25.562 ; Sciatica, left side M54.32 ; Pain in left hip M25.552 ; Type 2 diabetes mellitus with hyperglycemia E11.65 ; 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 and Mood disorder F39 [facility] [id number] [place] [address] 78927- 1797 December, Diabetes type 2, controlled E11.9 [facility] [id number] [place] [address] 85020- 2272 December, Diabetes type 2, controlled E11.9 [facility] [id number] [place] [address] 44477- 1178 Oct, Shoulder pain, right M25.511 and Knee pain, right M25.561 [facility] [id number] [place] [address] 98001- 4727 Oct, Knee pain, left M25.562 [facility] [id number] [place] [address] 05268- 6974 Sep, Diabetes mellitus E11.9 and Knee pain M25.569 [facility] [id number] [place] [address] 13548- 0047 Sep, [facility] [id number] [place] [address] 85364- 0518 Jun, Type 2 diabetes mellitus with diabetic neuropathy, unspecified E11.40 and Type 2 diabetes mellitus with hyperglycemia E11.65 [facility] [id number] [place] [address] 20160- 5641 May, Diabetes mellitus E11.9 [facility] [id number] [place] [address] 06371- 7378 May, Diabetes mellitus E11.9 and Lumbago with sciatica, left side M54.42 [facility] [id number] [place] [address] 06132- 3364 Jan, Osteoarthritis of knees, bilateral 715.96 [facility] [id number] [place] [address] 78132- 3323 December, [facility] [id number] [place] [address] 14880- 3511 December, Knee pain, bilateral 719.46 [facility] [id number] [place] [address] 97836- 2189 29 Nov, 2014 Knee pain, bilateral 719.46 [facility] [address] [id number] [place] [address]- 2292 14 Nov, 2014 [facility] [address] [id number] [place] [address]- 5541 13 Nov, 2014 [facility] [address] [id number] [place] [address]- 9250 Oct, [facility] [address] [id number] [place] [address]- 9216 Oct, [facility] [id number] [place] [address], [place]- 7673 Aug, [facility] [address] [facility] [id number] [place] [address]- 0078 Aug, [facility] [address] [place] [address]- 0812 17 Jul, 2014 [facility] [address] [id number] [place] [address]- 2379 17 Jul, 2014 [facility] [address] [place] [address]- 5061 Jun, [facility] [id number] [place] [address]- 7514 17 Jun, 2014 [facility] [address] [id number] [place] [address]- 1930 15 May, 2014 [facility] [address] [id number] [place] [address]- 5600 15 May, 2014 [facility] [address] [facility] [id number] [place] 6424 15 Apr, 2014 [facility] [place] [facility] [address] [facility] [id number] [place] [address]- 3155 15 Apr, 2014 [facility] [address] [facility] [id number] [place] 6082 Apr, [facility] [place] [facility] [address] [id number] [place] [address]- 1754 Apr, [facility] [place] [facility] [address] [id number] [place] [address]- 8580 Feb, [facility] [place] [facility] [address] [id number] [place] [address]- 2126 Feb, [facility] [place] [facility] [address] [id number] [place] [address]- 8353 December, [facility] [place] [facility] [address] [id number] [place] 9073 December, [facility] [place] [facility] [address] [id number] [place] [address]- 2947 December, [facility] [place] [facility] [address] [id number] [place] [address]- 1508 December, [facility] [place] [facility] [address] [id number] [place] [address]- 5613 Nov, [facility] [place] [facility] [address] [id number] [place] [address]- 4839 Nov, [facility] [place] [facility] [address] [id number] [place] [address]- 3759 Oct, [facility] [place] [facility] [address] [id number] [place] [address]- 4771 Oct, [facility] [place] [facility] [address] [id number] [place] [address]- 8491 Aug, [facility] [place] [facility] [address] [id number] [place] [address]- 1877 Aug, [facility] [place] [facility] [address] [id number] [place] [address]- 1846 Jul, [facility] [place] [facility] [address] [id number] [place] [address]- 2479 Jul, [facility] [place] [facility] [address] [id number] [address]- 8156 04 May, 2013 [facility] [address] [id number] [place] [address]- 5321 Jan, [facility] [address] [facility] [id number] [place] [address]- 3726 Jan, [facility] [address] [facility] [id number] [place] [address]- 5406 December, [facility] [address] [id number] [place] [address]- 8003 Nov, [facility] [address] [facility] [id number] [place] [address]- 4666 25 Oct, 2012 [facility] [address] [facility] [id number] [place] [address] 2546 19 Oct, 2012 [facility] [address] [place] [address]- 1819 14 Oct, 2012 [facility] [address] [facility] [id number] [place] [address]- 8083 Oct, [facility] [id number] [place] [address]- 2520 07 Oct, 2012 [facility] [id number] [place] [address]- 2333 07 Oct, 2012 [facility] [address] [facility] [id number] [place] [address]- 8189 07 Sep, 2012 [facility] [address] [facility] [id number] [place] [address]- 7613 18 Jul, 2012 [facility] [address] [id number] [place] [address]- 3285 Jul, [facility] [address] [facility] [id number] [place] [address]- 6946 Jul, [facility] [address] [facility] [id number] [place] [address]- 4717 Jun, [facility] [place] [facility] [address] [id number] [place] [address]- 2549 Jun, [facility] [place] [facility] [address] [id number] [place] [address]- 4120 Jun, [facility] [place] [facility] [address] [id number] [place] [address]- 2546 Jun, [facility] [place] [facility] [address] [id number] [place] [address]- 5346 Mar, [facility] [place] [facility] [address] [id number] [place] [address]- 4717 Mar, [facility] [place] [facility] [address] [id number] [place] [address]- 2302 Feb, [facility] [place] [facility] [address] [id number] [place] [address]- 8157 Feb, [facility] [place] [facility] [address] [id number] [place] [address]- 1046 December, [facility] [place] [facility] [address] [id number] [place] [address]- 5448 December, [facility] [place] [facility] [address] [id number] [place] [address]- 9701 Nov, [facility] [place] [facility] [address] [id number] [place] [address]- 2546 Oct, [facility] [place] [facility] [address] [id number] [place] [address]- 2546 Oct, [facility] [place] [facility] [address] [id number] [place] [address]- 1159 Jul, [facility] [place] [facility] [address] [id number] [place] [address]- 2546 Sep, [facility] [place] [facility] [address] [id number] [place] [address]- 2546 Jul, [facility] [place] [facility] [address] [id number] [place] [address]- 1281 Jan, [facility] [address] [facility] [id number] [place] [address]- 0535 Jun, [facility] [address] [facility] [id number], [place] [address]- 6266 Mar, [facility] [address] [facility] [id number], [place] [address]- 3809 Jan, [facility] [address] [facility] [id number], [place] [address]- 4713 December, [facility] [address] [facility] [id number] [address]- 0155 Oct, [facility] [address] [facility] [id number], [place] [address]- 5511 Sep, IMMUNIZATIONS No Known Immunizations SOCIAL HISTORY Never Assessed REASON FOR VISIT [facility] VITAL SIGNS Height 67 in 2017-07-29 Weight 272 lbs 2017-07-29 Temperature 98.1 degrees Fahrenheit 2017-07-29 Heart Rate 70 bpm 2017-07-29 Respiratory Rate 20 2017-07-29 BMI 42.60 kg/m2 2017-07-29 Blood pressure systolic 162 mmHg 2017-07-29 Blood pressure diastolic 70 mmHg 2017-07-29 MEDICATIONS Medication Instructions Dosage Frequency Start Date End Date Duration Status Humalog KwikPen 100 UNIT/ML Subcutaneous 3 times a day 30 units 8h December, Active Lisinopril 40 mg Orally Once a day 1 tablet 24h May, Active BD Pen Needle Ultrafine 29G X 12.7MM Inject 6h May, Active Metformin HCl 1000 MG Orally Twice a day 1 tablet with meals 12h May, Active Aspirin 325 MG Orally Once a day 1 tablet 24h Active Lyrica 75 MG Orally Twice a day 1 capsule h Jan, 30 days Active PredniSONE 20 MG Orally Once a day 1 tablet 24h Not-Taking Levemir FlexTouch 100 UNIT/ML Subcutaneous Once a day 90 units 24h May, Active Lipitor 20 mg Orally Once a day 1 tablet 24h May, Active Oxycodone-Acetaminophen 10-325 MG Orally every 6 hrs 1 tablet as needed 6h Jul, 28 days Active Neurontin 800 MG Orally Three times a day 1 capsule 8h 14 Feb, 2017 Active RESULTS Name Result Date Reference Range A1C (IN HOUSE) 2017-07-29 A1C IN HOUSE 11.5 4.3 - 5.6 % Previous A1c 9.8 Lot [id number] Exp date 03/27 PROCEDURES Procedure Date Ordered Result Body Site GLYCATED HEMOGLOBIN TEST Jul 29, 2017 [facility] VISIT ESTABLISHED PATIENT Jul 29, 2017 INSTRUCTIONS MEDICATIONS ADMINISTERED No Known Medications [...]
--- OUTSIDE RECORDS SUMMARY | 2018-04-20 16:12 | XMS REPORT ---
Author Author NISHI PALENCIA Organization [facility] Address [address] [place] [address] Care Team Providers Care Running Specialist Name Role Phone NISHI PALENCIA Unavailable PROBLEMS Type Condition ICD9-CM Code BOI48-IU Code Onset Dates Condition Status SNOMED Code Problem Type 2 diabetes mellitus with hyperglycemia E11.65 Active 823667302 Problem Lumbago with sciatica, left side M54.42 Active 361208771 Problem Controlled type 2 diabetes mellitus without complication, without long -term current use of insulin E11.9 Active 511979792 Problem Type 2 diabetes mellitus with diabetic neuropathy, unspecified E11.40 Active 68763076 Problem Diabetes type 2, controlled E11.9 Active 35436595 Problem Diabetic mononeuropathy associated with type 2 diabetes mellitus E11.41 Active 726933297 Problem Neuropathy G62.9 Active 059098781 Problem Type 2 diabetes mellitus without complications E11.9 Active 029661902 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 Active 993076438 Problem Slow transit constipation K59.01 Active 80200032 Problem Other chronic pain G89.29 Active 87722420 ALLERGIES No Information ENCOUNTERS Encounter Location Date Diagnosis [facility] [address] [address] December, [facility] [id number] [place] [address] 47470- 7885 Nov, [facility] [id number] [place] [address] 23243- 3315 Nov, [facility] [id number] [place] [address] 02796- 7619 Nov, Seborrheic keratoses L82.1 [facility] [id number] [place] [address] 74946- 5382 Nov, Renal insufficiency N28.9 [facility] [id number] [place] [address] 87499- 7986 Nov, [facility] [address] [address]- 8511 Nov, [facility] [id number] [place] [address] 02071- 6740 Nov, [place] [facility] [address] 12387- 9314 Nov, Type 2 diabetes mellitus with diabetic neuropathy, unspecified E11.40 ; Other chronic pain G89.29 ; Bronchitis J40 ; Renal cyst N28.1 ; Pain of left foot M79.672 and Pain in right foot M79.671 [facility] [id number] [place] [address] 21129- 2179 Oct, Type 2 diabetes mellitus without complications E11.9 [facility] [address] 68126- 0521 Oct, SOB (shortness of breath) R06.02 [facility] [id number] [place] [address] 25713- 3668 Oct, SOB (shortness of breath) R06.02 [facility] [id number] [place] [address] 18025- 6970 Sep, Type 2 diabetes mellitus without complications E11.9 [facility] [id number] [place] [address] 94148- 8218 Sep, Left flank pain R10.9 [facility] [id number] [place] [address] 18060- 4849 Sep, BMI 40.0-44.9, adult Z68.41 ; Left flank pain R10.9 and Seborrheic keratoses L82.1 [facility] [id number] [place] [address] 09675- 9658 Aug, Type 2 diabetes mellitus without complications E11.9 [facility] [id number] [address] 0[address] Jul, Type 2 diabetes mellitus without complications E11.9 and Abdominal pain, left lower quadrant R10.32 [facility] [address] [id number] [address] Jun, [facility] [address], [place] [address] 1681 Jun, Type 2 diabetes mellitus without complications E11.9 [facility] [address] [address] 2174 Jun, Controlled type 2 diabetes mellitus without complication, without long-term current use of insulin E11.9 and Seborrheic keratoses L82.1 [facility] [address] [address] May, Acute back pain M54.9 [facility] [address] [place] [address] 84916- 2119 May, Type 2 diabetes mellitus without complications E11.9 [facility] [address] [address] 357[address] 28 Apr, 2017 Diabetes type 2, controlled E11.9 ; Lumbago with sciatica, left side M54.42 and Diabetic mononeuropathy associated with type 2 diabetes mellitus E11.41 [facility] [address] [address] 7275 Apr, Type 2 diabetes mellitus without complications E11.9 [facility] [address] [address] 2851 05 Apr, 2017 [facility] [id number] [place] [address] 54638- 8104 Mar, Type 2 diabetes mellitus without complications E11.9 [facility] [address], [place] [address] 3[address] Feb, Controlled type 2 diabetes mellitus without complication, without long-term current use of insulin E11.9 ; Neuropathy G62.9 and Onychomycosis B35.1 [place] [facility] [address] [place] [address] 73744- 2492 Jan, Type 2 diabetes mellitus with diabetic neuropathy, unspecified E11.40 [facility] [id number] [place] [address] 52774- 4480 Jan, Type 2 diabetes mellitus with diabetic neuropathy, unspecified E11.40 [facility] [id number] [place] [address] 56079- 7246 December, Type 2 diabetes mellitus without complications E11.9 [facility] [id number] [place] [address] 82353- 7367 December, Slow transit constipation K59.01 and Pain in right hip M25.551 [facility] [id number] [place] [address] 57452- 1700 Nov, Type 2 diabetes mellitus without complications E11.9 [facility] [id number] [place] [address] 65618- 1330 Oct, Lumbago with sciatica, left side M54.42 and Other chronic pain G89.29 [facility] [id number] [place] [address] 24642- 3289 Sep, Diabetes mellitus E11.9 ; Lumbago with sciatica, left side M54.42 and Type 2 diabetes mellitus without complications E11.9 [facility] [address] [place] [address] 77370- 3070 Aug, Type 2 diabetes mellitus without complications E11.9 and nursing home 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 [facility] [id number] [place] [address] [id number] Aug, Dental examination Z01.20 [facility] [id number] [place] [address] [id number] Aug, Dental examination Z01.20 [facility] [id number] [place] [address] 44867 -7917 Aug, Dental abscess K04.7 [facility] [id number] [place] [address] 78102- 3796 Jul, Type 2 diabetes mellitus with hyperglycemia E11.65 and nursing home 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 [facility] [id number] [place] [address] 07716- 7005 Jul, [facility] [address] 05003- 8382 Jul, Type 2 diabetes mellitus with diabetic neuropathy, unspecified E11.40 [facility] [id number] [place] [address] 35105- 6715 Jun, Type 2 diabetes mellitus with diabetic neuropathy, unspecified E11.40 and Lumbago with sciatica, left side M54.42 [facility] [id number] [place] [address] 00193- 2916 May, Controlled type 2 diabetes mellitus without complication, without long-term current use of insulin E11.9 [facility] [id number] [place] [address] 94768- 6773 Apr, Controlled type 2 diabetes mellitus without complication, without long-term current use of insulin E11.9 and Lumbar neuritis M54.16 [facility] [id number] [place] [address] 98858- 5011 Mar, [place] [id number] [place] [address] 79394- 2332 Mar, Other chronic pain G89.29 ; Pain in left knee M25.562 ; Sciatica, left side M54.32 ; Pain in left hip M25.552 ; Type 2 diabetes mellitus with hyperglycemia E11.65 ; nursing home 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 and Mood disorder F39 [facility] [id number] [place] [address] 20822- 7566 December, Diabetes type 2, controlled E11.9 [facility] [id number] [place] [address] 58558- 4222 December, Diabetes type 2, controlled E11.9 [facility] [id number] [place] [address] 00492- 1403 Oct, Shoulder pain, right M25.511 and Knee pain, right M25.561 [facility] [id number] [place] [address] 70613- 8433 Oct, Knee pain, left M25.562 [facility] [id number] [place] [address] 62180- 0882 Sep, Diabetes mellitus E11.9 and Knee pain M25.569 [place] [address] 91322- 7318 Sep, [facility] [id number] [place] [address] 24315- 9264 Jun, Type 2 diabetes mellitus with diabetic neuropathy, unspecified E11.40 and Type 2 diabetes mellitus with hyperglycemia E11.65 [facility] [id number] [place] [address] 89409- 9669 May, Diabetes mellitus E11.9 [facility] [address] 67861- 1081 May, Diabetes mellitus E11.9 and Lumbago with sciatica, left side M54.42 [facility] [id number] [place] [address] 66228- 9172 Jan, Osteoarthritis of knees, bilateral 715.96 [facility] [id number] [place] [address] 63183- 5853 December, [facility] [id number] [place] [address] 63747- 9359 December, Knee pain, bilateral 719.46 [facility] [id number] [place] [address] 07441- 9821 Nov, Knee pain, bilateral 719.46 [facility] [place] [id number] [place] [address] 00039- 0722 14 Nov, 2014 [facility] [place] [facility] [address] [id number] [place] [address]- 6606 13 Nov, 2014 [facility] [place] [facility] [address] [id number] [place] [address]- 5079 13 Oct, 2014 [facility] [place] [facility] [address] [facility] [id number] [place] [address]- 3281 Oct, [facility] [place] [facility] [address] [id number] [place] [address]- 2712 Aug, [facility] [place] [facility] [address] [facility] [id number] [place] [address]- 2487 Aug, [facility] [place] [facility] [address] [id number] [place] [address]- 3527 17 Jul, 2014 [facility] [place] [facility] [address] [facility] [id number], [place] [address]- 0001 17 Jul, 2014 [facility] [place] [facility] [address] [facility] [id number] [place] [address]- 4553 17 Jun, 2014 [facility] [place] [facility] [address] [facility] [id number] [place] [address]- 3737 17 Jun, 2014 [facility] [place] [facility] [address] [facility] [id number] [place] [address]- 4304 15 May, 2014 [facility] [place] [facility] [address] [facility] [id number] [address]- 0880 15 May, 2014 [facility] [place] [facility] [address] [id number], [place] [address]- 0451 15 Apr, 2014 [facility] [place] [facility] [address] [id number], [place] [address]- 3301 15 Apr, 2014 [facility] [place] [facility] [address] [facility] [id number], [place] [address]- 3253 08 Apr, 2014 [facility] [place] [facility] [address] [facility] [id number], [place] [address]- 6012 08 Apr, 2014 [facility] [place] [facility] [address] [id number] [place] [address]- 9079 Feb, [facility] [place] [facility] [address] [id number] [place] [address]- 9298 Feb, [facility] [place] [facility] [address] [id number] [place] [address]- 0671 December, [facility] [place] [facility] [address] [id number] [place] [address]- 6977 December, [facility] [place] [facility] [address] [id number] [place] [address]- 3192 December, [facility] [place] [facility] [address] [id number] [place] [address]- 3106 December, [facility] [place] [facility] [address] [id number] [place] [address]- 9774 Nov, [facility] [place] [facility] [address] [id number] [place] [address]- 8131 Nov, [facility] [place] [facility] [address] [id number] [place] [address]- 4373 Oct, [facility] [place] [facility] [address] [id number] [place] [address]- 3934 Oct, [facility] [place] [facility] [address] [id number] [place] [address]- 3120 Aug, [facility] [place] [facility] [address] [id number] [place] [address]- 3670 Aug, [facility] [place] [facility] [address] [id number] [place] [address]- 3035 Jul, [facility] [place] [facility] [address] [id number] [place] [address]- 5833 Jul, [facility] [place] [facility] [address] [id number] [place] [address]- 2546 May, [facility] [place] [facility] [address] [id number] [place] [address]- 6884 Jan, [facility] [address] [id number] [place] [address]- 5959 Jan, [facility] [place] [facility] [address] [id number] [place] [address]- 8471 December, [facility] [place] [facility] [address] [id number] [place] [address]- 3419 Nov, [facility] [place] [facility] [address] [id number] [place] [address]- 2904 25 Oct, 2012 [facility] [address] [id number] [place] [address]- 1431 19 Oct, 2012 [facility] [place] [facility] [address] [id number] [place] [address]- 8710 14 Oct, 2012 [facility] [place] [facility] [address] [id number] [place] [address]- 5830 Oct, [facility] [place] [facility] [address] [id number] [place] [address]- 2687 07 Oct, 2012 [facility] [place] [facility] [address] [id number] [place] [address]- 7286 07 Oct, 2012 [facility] [place] [facility] [address] [facility] [id number] [place] [address]- 5121 07 Sep, 2012 [facility] [place] [facility] [address] [id number] [place] [address]- 7224 Jul, [facility] [place] [facility] [address] [id number], [place] [address]- 7089 Jul, [facility] [place] [facility] [address] [id number] [place] [address]- 3264 Jul, [facility] [place] [facility] [address] [facility] [id number] [place] [address]- 6901 Jun, [facility] [place] [facility] [address] [facility] [id number] [place] [address]- 2546 Jun, [facility] [place] [facility] [address] [id number] [place] [address]- 0085 Jun, [facility] [address] [id number] [place] [address]- 5325 Jun, [facility] [place] [facility] [address] [id number] [place] [address]- 4846 Mar, [facility] [address] [id number] [place] [address]- 5949 Mar, [facility] [place] [facility] [address] [id number] [place] [address]- 5290 Feb, [facility] [address] [id number] [place] [address]- 4496 Feb, [facility] [place] [facility] [address] [id number] [place] [address]- 7556 December, [facility] [address] [id number] [place] [address]- 1556 December, [facility] [address] [id number] [place] [address]- 2309 Nov, [facility] [place] [facility] [address] [id number] [place] [address]- 7160 Oct, [facility] [address] [id number] [place] [address]- 2059 Oct, [facility] [address] [id number] [place] [address]- 9034 Jul, [facility] [place] [facility] [address] [id number] [place] [address]- 2546 Sep, [facility] [place] [facility] [address] [id number] [place] [address]- 1838 Jul, [facility] [place] [facility] [address] [id number] [place] [address]- 2546 Jan, [facility] [place] [facility] [address] [id number] [place] [address]- 3764 Jun, [facility] [address] [facility] [id number], [place] [address]- 2546 Mar, [facility] [id number] [address]- 2546 Jan, [facility] [id number] [address]- 2546 December, [facility] [id number] [address]- 2546 Oct, [facility] [address] [facility] [id number], [place] [address]- 2546 Sep, IMMUNIZATIONS No Known Immunizations SOCIAL HISTORY Never Assessed REASON FOR VISIT Refused Colonoscopy PLAN OF CARE VITAL SIGNS MEDICATIONS Unknown [...]
--- OUTSIDE RECORDS SUMMARY | 2018-04-20 16:12 | XMS REPORT ---
Author Author NISHI PALENCIA Organization [facility] Address [address] [place] [address] Care Team Providers Care Solutions Architect Consultant Name Role Phone NISHI PALENCIA Unavailable PROBLEMS Type Condition ICD9-CM Code YRT35-TW Code Onset Dates Condition Status SNOMED Code Problem Type 2 diabetes mellitus with hyperglycemia E11.65 Active 452340775 Problem Lumbago with sciatica, left side M54.42 Active 090426275 Problem Controlled type 2 diabetes mellitus without complication, without long -term current use of insulin E11.9 Active 289967989 Problem Type 2 diabetes mellitus with diabetic neuropathy, unspecified E11.40 Active 95040397 Problem Diabetes type 2, controlled E11.9 Active 22419964 Problem Diabetic mononeuropathy associated with type 2 diabetes mellitus E11.41 Active 569717281 Problem Neuropathy G62.9 Active 802679490 Problem Type 2 diabetes mellitus without complications E11.9 Active 124112848 Problem 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 Active 152513637 Problem Slow transit constipation K59.01 Active 87954169 Problem Other chronic pain G89.29 Active 73537622 ALLERGIES No Known Allergies ENCOUNTERS Encounter Location Date Diagnosis [facility] [address] [address] Jan, [facility] [address] [address] December, [facility] [address] [address] December, [facility] [id number] [place] [address]8464- [address]13 Nov, [facility] [address] [address] Nov, [facility] [id number] [place] [address] 27060- 9921 Nov, Seborrheic keratoses L82.1 [place] [address] [address]- [address] Nov, Renal insufficiency N28.9 [place] [address] [address]- 0360 Nov, [place] [address] [address]- 5659 Nov, [place] [address] [address]- 6307 Nov, [place] [address] [address]- 9031 Nov, Type 2 diabetes mellitus with diabetic neuropathy, unspecified E11.40 ; Other chronic pain G89.29 ; Bronchitis J40 ; Renal cyst N28.1 ; Pain of left foot M79.672 and Pain in right foot M79.671 [place] [address] [address]- [address] Oct, Type 2 diabetes mellitus without complications E11.9 [place] [address] 99649- 7269 Oct, SOB (shortness of breath) R06.02 [place] [id number] [place] [address] 21632- 7791 Oct, SOB (shortness of breath) R06.02 [place] [id number] [place] [address] 78760- 5473 Sep, Type 2 diabetes mellitus without complications E11.9 [place] [address] 6[address]67- 6835 Sep, Left flank pain R10.9 [place] [id number] [place] [address] 67752- 5259 Sep, BMI 40.0-44.9, adult Z68.41 ; Left flank pain R10.9 and Seborrheic keratoses L82.1 [facility] [address] [address] Aug, Type 2 diabetes mellitus without complications E11.9 [facility] [address] [address] 130[address] Jul, Type 2 diabetes mellitus without complications E11.9 and Abdominal pain, left lower quadrant R10.32 [facility] [address] [id number] [address] Jun, [facility] [id number] [place] [address] 77428- 5926 Jun, Type 2 diabetes mellitus without complications E11.9 [facility] [address] [place] [address] 39712- 8550 Jun, Controlled type 2 diabetes mellitus without complication, without long-term current use of insulin E11.9 and Seborrheic keratoses L82.1 [facility] [address] [address] May, Acute back pain M54.9 [facility] [address] [place] [address] 36078- 9466 13 May, 2017 Type 2 diabetes mellitus without complications E11.9 [facility] [address] [address] 28 Apr, 2017 Diabetes type 2, controlled E11.9 ; Lumbago with sciatica, left side M54.42 and Diabetic mononeuropathy associated with type 2 diabetes mellitus E11.41 [facility] [address] [address] 7[address] Apr, Type 2 diabetes mellitus without complications E11.9 [facility] [address] [address] Apr, [facility] [id number] [place] [address] 70439- 8452 Mar, Type 2 diabetes mellitus without complications E11.9 [place] [id number] [place] [address] 77717- 7720 Feb, Controlled type 2 diabetes mellitus without complication, without long-term current use of insulin E11.9 ; Neuropathy G62.9 and Onychomycosis B35.1 [place] [id number] [place] [address] 83578- 1905 Jan, Type 2 diabetes mellitus with diabetic neuropathy, unspecified E11.40 [place] [id number] [place] [address] 74375- 7989 Jan, Type 2 diabetes mellitus with diabetic neuropathy, unspecified E11.40 [place] [id number] [place] [address] 05127- 5607 December, Type 2 diabetes mellitus without complications E11.9 [place] [id number] [place] [address] 23461- 7754 December, Slow transit constipation K59.01 and Pain in right hip M25.551 [place] [id number] [place] [address] 03495- 6654 Nov, Type 2 diabetes mellitus without complications E11.9 [place] [id number] [place] [address] 15540- 4908 Oct, Lumbago with sciatica, left side M54.42 and Other chronic pain G89.29 [place] [id number] [place] [address] 46165- 5093 Sep, Diabetes mellitus E11.9 ; Lumbago with sciatica, left side M54.42 and Type 2 diabetes mellitus without complications E11.9 [place] [id number] [place] [address] 22300- 8380 Aug, Type 2 diabetes mellitus without complications E11.9 and 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 [facility] [address] [place] [id number] 17 Tanvir, 2017 Dental examination Z01.20 [facility] [address] [facility] [id number] [address] Aug, Dental examination Z01.20 [facility] [address] [place] [address] Aug, Dental abscess K04.7 [facility] [id number] [place] [address] 87522- 2590 Jul, Type 2 diabetes mellitus with hyperglycemia E11.65 and correction 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 [facility] [id number] [place] [address] 77456- 9488 Jul, [facility] [id number] [place] [address] 17412- 3355 Jul, Type 2 diabetes mellitus with diabetic neuropathy, unspecified E11.40 [facility] [id number] [place] [address] 96354- 1017 Jun, Type 2 diabetes mellitus with diabetic neuropathy, unspecified E11.40 and Lumbago with sciatica, left side M54.42 [facility] [address] [place] [address] 83120- 9063 May, Controlled type 2 diabetes mellitus without complication, without long-term current use of insulin E11.9 [facility] [address] [place] [address] 76659- 3763 Apr, Controlled type 2 diabetes mellitus without complication, without long-term current use of insulin E11.9 and Lumbar neuritis M54.16 [facility] [address] [address]- 6727 Mar, [place] [id number] [place] [address] 34982- 2216 Mar, Other chronic pain G89.29 ; Pain in left knee M25.562 ; Sciatica, left side M54.32 ; Pain in left hip M25.552 ; Type 2 diabetes mellitus with hyperglycemia E11.65 ; correction 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 and Mood disorder F39 [place] [id number] [place] [address] 33159- 0917 December, Diabetes type 2, controlled E11.9 [place] [id number] [place] [address] 26766- 8413 December, Diabetes type 2, controlled E11.9 [place] [id number] [place] [address] 86855- 5263 Oct, Shoulder pain, right M25.511 and Knee pain, right M25.561 [place] [id number] [place] [address] 76404- 2276 Oct, Knee pain, left M25.562 [place] [id number] [place] [address] 21117- 0909 Sep, Diabetes mellitus E11.9 and Knee pain M25.569 [place] [id number] [place] [address] 66782- 9585 Sep, [place] [id number] [place] [address] 87031- 8297 Jun, Type 2 diabetes mellitus with diabetic neuropathy, unspecified E11.40 and Type 2 diabetes mellitus with hyperglycemia E11.65 [place] [id number] [place] [address] 78451- 3780 May, Diabetes mellitus E11.9 [place] [id number] [place] [address] 05877- 9380 May, Diabetes mellitus E11.9 and Lumbago with sciatica, left side M54.42 [place] [id number] [place] [address] 54091- 4012 Jan, Osteoarthritis of knees, bilateral 715.96 [place] [id number] [place] [address] 89263- 9089 December, [place] [address] [id number] [place] [address] 59607- 3144 December, Knee pain, bilateral 719.46 [facility] [address] [id number] [place] [address]- 6796 Nov, Knee pain, bilateral 719.46 [facility] [address] [id number] [place] [address]- 6593 Nov, [facility] [address] [facility] [id number] [place] [address]- 5990 Nov, [facility] [address] [id number] [place] [address]- 8896 Oct, [facility] [address] [facility] [id number] [place] [address], [place] [address]- 1174 Oct, [facility] [address] [facility] [id number] [place] [address]- 3157 Aug, [facility] [id number] [place] [address] 84484- 4590 Aug, [facility] [address] [facility] [id number] [place] [address]- 4603 Jul, [facility] [address] [facility] [id number] [place] [address]- 4628 Jul, [facility] [address] [facility] [id number] [place] [address]- 0703 Jun, [facility] [address] [facility] [id number] [place] [address]- 9809 Jun, [facility] [address] [facility] [id number] [place] [address]- 8822 May, [facility] [address] [facility] [id number] [place] [address]- 4125 May, [facility] [address] [facility] [id number] [place] 6501 15 Apr, 2014 [facility] [address] [facility] [id number] [place] 9136 15 Apr, 2014 [facility] [place] [facility] [address] [id number] [place] [address]- 7774 08 Apr, 2014 [facility] [place] [facility] [address] [id number] [place] [address]- 2506 Apr, [facility] [place] [facility] [address] [id number] [place] [address]- 0789 Feb, [facility] [place] [facility] [address] [id number] [place] [address]- 5583 Feb, [facility] [place] [facility] [address] [id number] [place] [address]- 4457 December, [facility] [place] [facility] [address] [id number] [place] [address]- 9172 December, [facility] [place] [facility] [address] [id number] [place] [address]- 4983 December, [facility] [place] [facility] [address] [id number] [place] [address]- 7883 December, [facility] [place] [facility] [address] [id number] [place] [address]- 6784 Nov, [facility] [place] [facility] [address] [id number] [place] [address]- 8452 Nov, [facility] [place] [facility] [address] [id number] [place] [address]- 7592 Oct, [facility] [place] [facility] [address] [id number] [place] [address]- 8893 Oct, [facility] [place] [facility] [address] [id number] [place] [address]- 9377 Aug, [facility] [place] [facility] [address] [id number] [place] [address]- 9262 Aug, [facility] [place] [facility] [address] [id number] [place] [address]- 8477 Jul, [facility] [place] [facility] [address] [id number] [place] [address]- 9039 Jul, 2013 [facility] [address] [id number] [place] [address]- 0733 04 May, 2013 [facility] [place] [facility] [address] [id number] [place] [address]- 8636 Jan, [facility] [place] [facility] [address] [facility] [id number] [place] [address]- 2546 Jan, [facility] [place] [facility] [address] [id number] [place] [address]- 5856 December, [facility] [place] [facility] [address] [id number] [place] [address]- 2546 Nov, [facility] [place] [facility] [address] [id number] [place] [address]- 8996 25 Oct, 2012 [facility] [place] [facility] [address] [id number] [place] [address]- 2546 Oct, [facility] [place] [facility] [address] [id number] [place] [address]- 4758 14 Oct, 2012 [facility] [place] [facility] [address] [id number] [place] [address]- 3069 11 Oct, 2012 [facility] [place] [facility] [address] [id number] [place] [address]- 5886 07 Oct, 2012 [facility] [place] [facility] [address] [id number] [place] [address]- 2546 07 Oct, 2012 [facility] [place] [facility] [address] [id number] [place] [address]- 2546 07 Sep, 2012 [facility] [place] [facility] [address] [id number] [place] [address]- 2546 18 Jul, 2012 [facility] [place] [facility] [address] [facility] [id number] [place] [address]- 2546 17 Jul, 2012 [facility] [place] [facility] [address] [facility] [id number] [place] [address]- 2546 Jul, [facility] [place] [facility] [address] [id number] [place] [address]- 2386 Jun, [facility] [address] [id number] [place] [address]- 2366 Jun, [facility] [place] [facility] [address] [id number] [place] [address]- 2246 Jun, [facility] [address] [id number] [place] [address]- 1983 Jun, [facility] [address] [id number] [place] [address]- 0120 Mar, [facility] [address] [id number] [place] [address]- 0169 Mar, [facility] [address] [id number] [place] [address]- 4196 Feb, [facility] [address] [id number] [place] [address]- 7922 Feb, [facility] [address] [id number] [place] [address]- 6961 December, [facility] [address] [id number] [place] [address]- 5041 December, [facility] [address] [id number] [place] [address]- 8658 Nov, [facility] [address] [id number] [place] [address]- 6136 Oct, [facility] [place] [facility] [address] [id number] [place] [address]- 2546 Oct, [facility] [place] [facility] [address] [id number] [place] [address]- 9897 Jul, [facility] [place] [facility] [address] [id number] [place] [address]- 2546 Sep, [facility] [address] [id number] [place] [address]- 1926 Jul, [facility] [address] [facility] [id number] [place] [address]- 1162 Jan, [facility] [id number] [address]- 9826 Jun, [facility] [id number] [address]- 3867 Mar, [facility] [address] [address]- 6316 Jan, [facility] [address] [address]- 2735 December, [facility] [address] [address]- 6876 Oct, [facility] [id number] [address]- 6746 Sep, IMMUNIZATIONS No Known Immunizations SOCIAL HISTORY Never Assessed REASON FOR VISIT diabetes f/u--H Brannon FAITH PLAN OF CARE VITAL SIGNS Height 67 in 2017-05-06 Weight 266.0 lbs 2017-05-06 Temperature 97.9 degrees Fahrenheit 2017-05-06 Heart Rate 80 bpm 2017-05-06 Respiratory Rate 20 2017-05-06 BMI 41.66 kg/m2 2017-05-06 Blood pressure systolic 152 mmHg 2017-05-06 Blood pressure diastolic 80 mmHg 2017-05-06 MEDICATIONS Medication Instructions Dosage Frequency Start Date End Date Duration Status Metformin HCl 1000 MG Orally Twice a day 1 tablet with meals 12h May, Active Lyrica 75 MG Orally Twice a day 1 capsule 12h Jan, 30 days Active Neurontin 800 MG Orally Three times a day 1 capsule 8h 14 Feb, 2017 Active Lipitor 20 mg Orally Once a day 1 tablet 24h May, Active Oxycodone-Acetaminophen 10-325 MG Orally every 6 hrs 1 tablet as needed 6h 18 Apr, 2017 28 days Active Humalog KwikPen 100 UNIT/ML Subcutaneous 3 times a day 30 units 8h December, Active BD Pen Needle Ultrafine 29G X 12.7MM Inject 6h May, Active Lisinopril 40 mg Orally Once a day 1 tablet 24h May, Active Levemir FlexTouch 100 UNIT/ML Subcutaneous Once a day 90 units 24h May, Active Aspirin 325 MG Orally Once a day 1 tablet 24h Active RESULTS Name Result Date Reference Range A1C (IN HOUSE) 2017-05-06 A1C IN HOUSE 9.8 4.3 - 5.6 % Previous A1c 8.0 Lot [id number] Exp date 12/2018 PROCEDURES Procedure Date Ordered Result Body Site [facility] VISIT ESTABLISHED PATIENT May 06, 2017 GLYCATED HEMOGLOBIN TEST May 06, 2017 INSTRUCTIONS MEDICATIONS ADMINISTERED No Known Medications [...]
--- OUTSIDE RECORDS SUMMARY | 2018-04-20 16:13 | XMS REPORT ---
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 Name Role Phone SLIMENISHI Unavailable PROBLEMS Type Condition ICD9-CM Code LZH64-RJ Code Onset Dates Condition Status SNOMED Code Problem Type 2 diabetes mellitus with hyperglycemia E11.65 Active 687327908 Problem Lumbago with sciatica, left side M54.42 Active 522567417 Problem Controlled type 2 diabetes mellitus without complication, without long -term current use of insulin E11.9 Active 284726766 Problem Type 2 diabetes mellitus with diabetic neuropathy, unspecified E11.40 Active 16755144 Problem Diabetes type 2, controlled E11.9 Active 47579611 Problem Diabetic mononeuropathy associated with type 2 diabetes mellitus E11.41 Active 449943866 Problem Neuropathy G62.9 Active 774835629 Problem Type 2 diabetes mellitus without complications E11.9 Active 773664490 Problem 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 Active 255584544 Problem Slow transit constipation K59.01 Active 40379785 Problem Other chronic pain G89.29 Active 58942578 ALLERGIES No Known Allergies ENCOUNTERS Encounter Location Date Diagnosis [facility] [address] [address] December, [place] [id number] [place] [address] 29677- 0544 December, [facility] [id number] [place] [address] 58773- 0599 Nov, [place] [address] [place] [id number] [place] [address] 19676- 5993 Nov, [place] [id number] [place] [address] 08275- 6529 Nov, Seborrheic keratoses L82.1 [place] [address] [place] [id number] [place] [address] 66574- 3293 Nov, Renal insufficiency N28.9 [place] [address] 41180- 5145 Nov, [place] [address] 85949- 3231 Nov, [place] [address] 44001- 1800 Nov, [place] [address] 15117- 7736 Nov, Type 2 diabetes mellitus with diabetic neuropathy, unspecified E11.40 ; Other chronic pain G89.29 ; Bronchitis J40 ; Renal cyst N28.1 ; Pain of left foot M79.672 and Pain in right foot M79.671 [place] [address] [address]- 8835 Oct, Type 2 diabetes mellitus without complications E11.9 [place] [address] 39341- 4767 Oct, SOB (shortness of breath) R06.02 [place] [address] 25952- 0344 Oct, SOB (shortness of breath) R06.02 [place] [address] 65951- 9046 Sep, Type 2 diabetes mellitus without complications E11.9 [place] [address] 44837- 7196 Sep, Left flank pain R10.9 [place] [address] 68815- 4630 Sep, BMI 40.0-44.9, adult Z68.41 ; Left flank pain R10.9 and Seborrheic keratoses L82.1 [place] [address] [place] [address] 18 Aug, 2017 Type 2 diabetes mellitus without complications E11.9 [facility] [address] [place] [address] 84424- 6018 Jul, Type 2 diabetes mellitus without complications E11.9 and Abdominal pain, left lower quadrant R10.32 [facility] [address] [id number] [address] Jun, [facility] [address] [place] [address] [id number] [place] [address] 19274- 9783 Jun, Type 2 diabetes mellitus without complications E11.9 [facility] [address] [place] [id number] [place] [address] 55424- 0548 02 Jun, 2017 Controlled type 2 diabetes mellitus without complication, without long-term current use of insulin E11.9 and Seborrheic keratoses L82.1 [facility] [address] [place] [address] 06563 -4035 27 May, 2017 Acute back pain M54.9 [facility] [address] [place] [address] [id number] [place] [address] 12718- 8318 13 May, 2017 Type 2 diabetes mellitus without complications E11.9 [facility] [address], [place] [address] 5[address] 28 Apr, 2017 Diabetes type 2, controlled E11.9 ; Lumbago with sciatica, left side M54.42 and Diabetic mononeuropathy associated with type 2 diabetes mellitus E11.41 [facility] [address], [place] [address] 0080 18 Apr, 2017 Type 2 diabetes mellitus without complications E11.9 [facility] [address] [place] [id number] [place] [address] 61344- 4417 05 Apr, 2017 [facility] [address] [place] [id number] [place] [address] 14512- 3548 Mar, Type 2 diabetes mellitus without complications E11.9 [facility] [address] [place] [address] 49361- 8064 Feb, Controlled type 2 diabetes mellitus without complication, without long-term current use of insulin E11.9 ; Neuropathy G62.9 and Onychomycosis B35.1 [place] [address] [place] [id number] [place] [address] 39171- 8074 Jan, Type 2 diabetes mellitus with diabetic neuropathy, unspecified E11.40 [place] [address] [place] [id number] [place] [address] 07069- 7050 Jan, Type 2 diabetes mellitus with diabetic neuropathy, unspecified E11.40 [place] [address] [place] [id number] [place] [address] 52189- 3080 December, Type 2 diabetes mellitus without complications E11.9 [place] [address] [place] [id number] [place] [address] 62320- 2150 December, Slow transit constipation K59.01 and Pain in right hip M25.551 [place] [address] [place] [id number] [place] [address] 26635- 6169 Nov, Type 2 diabetes mellitus without complications E11.9 [place] [address] [place] [id number] [place] [address] 74502- 8019 Oct, Lumbago with sciatica, left side M54.42 and Other chronic pain G89.29 [place] [address] [place] [id number] [place] [address] 58350- 2794 Sep, Diabetes mellitus E11.9 ; Lumbago with sciatica, left side M54.42 and Type 2 diabetes mellitus without complications E11.9 [place] [address] [place] [address] 35009- 3695 Aug, Type 2 diabetes mellitus without complications E11.9 and custodial 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 [facility] [address] [place] [address] [id number] Aug, Dental examination Z01.20 [facility] [address] [place] [id number] [place] [address] [id number] Aug, Dental examination Z01.20 [facility] [address] [place] [address] 10544 -7015 Aug, Dental abscess K04.7 [facility] [address] [place] [id number] [place] [address] 11798- 2089 Jul, Type 2 diabetes mellitus with hyperglycemia E11.65 and 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 [place] [address] [place] [id number] [place] [address] 15316- 3883 Jul, [place] [address] [place] [id number] [place] [address] 37968- 8162 Jul, Type 2 diabetes mellitus with diabetic neuropathy, unspecified E11.40 [place] [address] [place] [id number] [place] [address] 22758- 6337 Jun, Type 2 diabetes mellitus with diabetic neuropathy, unspecified E11.40 and Lumbago with sciatica, left side M54.42 [place] [address] [place] [id number] [place] [address] 52196- 8622 May, Controlled type 2 diabetes mellitus without complication, without long-term current use of insulin E11.9 [place] [address] [place] [id number] [place] [address] 30850- 3686 Apr, Controlled type 2 diabetes mellitus without complication, without long-term current use of insulin E11.9 and Lumbar neuritis M54.16 [place] [address] [place] [id number] [place] [address] 94442- 4026 Mar, [place] [address] [place] [id number] [place] [address] 53041- 8518 Mar, Other chronic pain G89.29 ; Pain in left knee M25.562 ; Sciatica, left side M54.32 ; Pain in left hip M25.552 ; Type 2 diabetes mellitus with hyperglycemia E11.65 ; 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 and Mood disorder F39 [place] [address] [place] [id number] [place] [address] 85848- 7036 December, Diabetes type 2, controlled E11.9 [facility] [address] [id number] [address] 0434 December, Diabetes type 2, controlled E11.9 [facility] [address] [place] [id number] [place] [address] 11468- 6910 Oct, Shoulder pain, right M25.511 and Knee pain, right M25.561 [place] [address] [place] [id number] [place] [address] 48324- 1231 Oct, Knee pain, left M25.562 [place] [address] [place] [id number] [place] [address] 26050- 1604 Sep, Diabetes mellitus E11.9 and Knee pain M25.569 [place] [address] [place] [id number] [place] [address] 14524- 8053 Sep, [place] [address] [place] [id number] [place] [address] 61639- 1470 Jun, Type 2 diabetes mellitus with diabetic neuropathy, unspecified E11.40 and Type 2 diabetes mellitus with hyperglycemia E11.65 [place] [address] [place] [id number] [place] [address] 48294- 2720 May, Diabetes mellitus E11.9 [place] [address] [place] [id number] [place] [address] 75902- 2223 May, Diabetes mellitus E11.9 and Lumbago with sciatica, left side M54.42 [place] [address] [place] [id number] [place] [address] 71611- 0858 Jan, Osteoarthritis of knees, bilateral 715.96 [place] [address] [place] [id number] [place] [address] 08028- 4182 December, [place] [address] [place] [id number] [place] [address] 55886- 1055 December, Knee pain, bilateral 719.46 [place] [address] [place] [id number] [place] [address] 78773- 9971 Nov, 2014 Knee pain, bilateral 719.46 [facility] [address] [id number] [place] [address]- 4630 14 Nov, 2014 [facility] [address] [id number] [address]- 5606 13 Nov, 2014 [facility] [address] [facility] [id number] [place] [address]- 5226 13 Oct, 2014 [facility] [place] [facility] [id number] [place] [address] 23841- 1893 Oct, [facility] [address] [facility] [id number] [place] [address], [place] [address]- 8845 Aug, [facility] [address] [facility] [id number] [place] [address] 60649- 4247 Aug, [facility] [address] [place] [address] 05593- 4470 17 Jul, 2014 [facility] [address] [facility] [id number] [address]- 5574 17 Jul, 2014 [facility] [address] [facility] [id number] [address]- 5715 Jun, [facility] [address] [facility] [id number] [address]- 5771 17 Jun, 2014 [facility] [address] [facility] [id number] [address]- 9885 15 May, 2014 [facility] [place] [facility] [address] [facility] [id number] [address]- 8097 15 May, 2014 [facility] [place] [facility] [address] [facility] [id number] [address]- 8895 15 Apr, 2014 [facility] [place] [facility] [address] [facility] [id number] [address]- 2977 15 Apr, 2014 [facility] [address] [facility] [id number] [address]- 1098 08 Apr, 2014 [facility] [place] [facility] [address] [id number] [place] [address]- 3955 Apr, [facility] [place] [facility] [address] [id number] [place] [address]- 4398 Feb, [facility] [place] [facility] [address] [id number] [place] [address]- 0036 Feb, [facility] [place] [facility] [address] [id number] [place] [address]- 6467 December, [facility] [place] [facility] [address] [id number] [place] [address]- 9181 December, [facility] [place] [facility] [address] [id number] [place] [address]- 5052 December, [facility] [place] [facility] [address] [id number] [place] [address]- 6886 December, [facility] [place] [facility] [address] [id number] [place] [address]- 2105 Nov, [facility] [place] [facility] [address] [id number] [place] [address]- 9305 Nov, [facility] [place] [facility] [address] [id number] [place] [address]- 7656 Oct, [facility] [place] [facility] [address] [id number] [place] [address]- 0465 Oct, [facility] [place] [facility] [address] [id number] [place] [address]- 9665 Aug, [facility] [place] [facility] [address] [id number] [place] [address]- 7661 Aug, [facility] [place] [facility] [address] [id number] [place] [address]- 0553 Jul, [facility] [place] [facility] [address] [id number] [place] [address]- 8132 Jul, [facility] [place] [facility] [address] [id number] [place] [address]- 0701 May, 2013 [facility] [address] [id number] [place] [address]- 0523 Jan, [facility] [place] [facility] [address] [id number] [place] [address]- 5716 Jan, [facility] [place] [facility] [address] [facility] [id number] [place] [address]- 3836 December, [facility] [place] [facility] [address] [id number] [place] [address]- 2546 Nov, [facility] [place] [facility] [address] [id number] [place] [address]- 5709 25 Oct, 2012 [facility] [place] [facility] [address] [id number] [place] [address]- 8946 19 Oct, 2012 [facility] [place] [facility] [address] [id number] [place] [address]- 9916 14 Oct, 2012 [facility] [place] [facility] [address] [id number] [place] [address]- 1181 Oct, [facility] [place] [facility] [address] [id number] [place] [address]- 1528 07 Oct, 2012 [facility] [place] [facility] [address] [facility] [id number] [place] [address]- 5966 07 Oct, 2012 [facility] [place] [facility] [address] [id number] [address]- 2546 07 Sep, 2012 [facility] [place] [facility] [address] [id number] [address]- 2546 Jul, [facility] [place] [facility] [address] [id number] [place] [address]- 2546 Jul, [facility] [place] [facility] [address] [facility] [id number] [place] [address]- 2546 Jul, [facility] [place] [facility] [address] [facility] [id number] [place] [address]- 2546 Jun, [facility] [place] [facility] [address] [id number] [place] [address]- 8744 Jun, [facility] [address] [id number] [place] [address]- 1601 Jun, [facility] [address] [id number] [place] [address]- 3146 Jun, [facility] [address] [id number] [place] [address]- 0916 Mar, [facility] [address] [id number] [place] [address]- 5476 Mar, [facility] [address] [id number] [place] [address]- 3977 Feb, [facility] [address] [id number] [place] [address]- 1506 Feb, [facility] [address] [id number] [place] [address]- 3866 December, [facility] [address] [id number] [place] [address]- 0519 December, [facility] [address] [id number] [place] [address]- 3169 Nov, [facility] [address] [id number] [place] [address]- 6416 Oct, [facility] [address] [id number] [place] [address] 2546 Oct, [facility] [address] [id number] [place] [address]- 5656 Jul, [facility] [place] [facility] [address] [id number] [place] [address]- 1416 Sep, [facility] [address] [id number] [place] [address]- 2546 Jul, [facility] [address] [id number] [place] [address]- 0896 Jan, [facility] [address] [facility] [id number] [address]- 9604 Jun, [facility] [address] [facility] [id number] [address]- 2236 Mar, [facility] [address] [facility] [id number] [address]- 7726 Jan, [facility] [address], [place] [address]- 8786 December, [facility] [address] [facility] [id number] [address]- 9232 Oct, [facility] [address] [facility] [id number] [address]- 8066 Sep, IMMUNIZATIONS No Known Immunizations SOCIAL HISTORY Never Assessed REASON FOR VISIT Diabetes fu -- karthik melendez PLAN OF CARE VITAL SIGNS Height 67 in 2017-03-26 Weight 269.0 lbs 2017-03-26 Temperature 98.2 degrees Fahrenheit 2017-03-26 Heart Rate 62 bpm 2017-03-26 Respiratory Rate 20 2017-03-26 BMI 42.13 kg/m2 2017-03-26 Blood pressure systolic 168 mmHg 2017-03-26 Blood pressure diastolic 78 mmHg 2017-03-26 MEDICATIONS Medication Instructions Dosage Frequency Start Date End Date Duration Status BD Pen Needle Ultrafine 29G X 12.7MM Inject 6h May, Active Humalog KwikPen 100 UNIT/ML Subcutaneous 3 times a day 30 units 8h December, Active Lipitor 20 mg Orally Once a day 1 tablet 24h May, Active Lyrica 75 MG Orally Twice a day 1 capsule 12h Jan, 30 days Active Lisinopril 40 mg Orally Once a day 1 tablet 24h May, Active Neurontin 800 MG Orally Three times a day 1 capsule 8h Feb, Active Oxycodone-Acetaminophen 10-325 MG Orally every 6 hrs 1 tablet as needed 6h Mar, Apr, 28 days Active Aspirin 325 MG Orally Once a day 1 tablet 24h Active Naproxen 500 MG 1 tablet 12h Apr, Active Metformin HCl 1000 MG Orally Twice a day 1 tablet with meals 12h May, Active RESULTS No Results PROCEDURES Procedure Date Ordered Result Body Site [facility] VISIT ESTABLISHED PATIENT Mar 26, 2017 INSTRUCTIONS MEDICATIONS ADMINISTERED No Known Medications MEDICAL (GENERAL) HISTORY Type Description Date Medical History type II diabetes Medical History hyperlipidemia Medical History hypertension Medical History chronic pain back/knees Surgical History right knee arthroscopy 1994 Surgical History heart cath, 2010--clear Surgical History left knee arthroscopy 2010 Surgical History back surgery with rods 12/2016 Hospitalization History surgeries Hospitalization History [facility] ED- Back/Left Side Pain 06/06/2017 Hospitalization History [facility] ED- Congested, cough and SOB 11/07/2017
--- OUTSIDE RECORDS SUMMARY | 2018-04-20 16:15 | XMS REPORT | Continuity of Care Document ---
Author Author [facility] Address Unknown Phone Unavailable Allergies Active Description Code Type Severity Reaction Onset Reported/Identified Relationship to Patient Clinical Status Yes NO KNOWN DRUG ALLERGIES UNKNOWN NO KNOWN DRUG ALLERG Yes No Known Drug Allergies [id number] Drug Allergy Unknown N/A 10/08/2011 Medications Medication [...] MELLITUS TYPE II - UNCOMPLICATED, UNCONTROLLED 02/09/2008 MAGDALENA ANDINO APRN, DEANA N 250.02 DIABETES MELLITUS TYPE II - [...] DIABETES MELLITUS 05/15/2008 250.00 DIABETES MELLITUS 05/15/2008 ABBE CARO DO K 250.00 DIABETES MELLITUS POORLY CONTROLLED 05/15/2008 ABBE CARO DO K 250.00 DIABETES MELLITUS POORLY CONTROLLED 05/15/2008 STACY CARO DOA K 250.00 DIABETES MELLITUS POORLY CONTROLLED 05/15/2008 250.00 DIABETES MELLITUS POORLY CONTROLLED 05/15/2008 250.00 DIABETES MELLITUS POORLY CONTROLLED 05/15/2008 STACY CARO DOA K 250.00 DIABETES MELLITUS POORLY CONTROLLED 05/15/2008 DEANA NEGRETE APRN N 250.00 DIABETES MELLITUS POORLY CONTROLLED 05/15/2008 NISHI PALENCIA APRN T 250.00 DIABETES MELLITUS POORLY CONTROLLED 05/15/2008 [employer] REPRESENTATIVE, NISHI T 250.00 DIABETES MELLITUS POORLY CONTROLLED [...] NISHI T 250.00 DIABETES MELLITUS POORLY CONTROLLED 09/20/2008 [...] CARO DO, ABBE K 278.02 OVERWEIGHT 09/20/2008 MAGDALENA CASHMARCOS GARRIDO APRNCY N 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 FAMILIAL HYPERCHOLESTEROLEMIA 09/20/2008 MARCOS NEGRETE APRNCY N 278.02 OVERWEIGHT 09/20/2008 NISHI PALENCIA APRN 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 FAMILIAL HYPERCHOLESTEROLEMIA 09/20/2008 NISHI PALENCIA APRN 278.02 OVERWEIGHT 09/20/2008 NISHI PALENCIA APRN 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 FAMILIAL HYPERCHOLESTEROLEMIA 09/20/2008 [employer] REPRESENTATIVE, NISHI T 278.02 OVERWEIGHT 09/20/2008 [employer] REPRESENTATIVE, NISHI T 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 FAMILIAL HYPERCHOLESTEROLEMIA 09/20/2008 [employer] REPRESENTATIVE, NISHI T 278.02 OVERWEIGHT 09/20/2008 [employer] REPRESENTATIVE, NISHI T 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 FAMILIAL HYPERCHOLESTEROLEMIA 09/20/2008 [employer] REPRESENTATIVE, NISHI T 278.02 OVERWEIGHT 09/20/2008 [facility] [employer] REPRESENTATIVE, ZULMA R 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 FAMILIAL HYPERCHOLESTEROLEMIA 09/20/2008 [employer] [employer] REPRESENTATIVE, ZULMA R 278.02 OVERWEIGHT 09/20/2008 [employer] REPRESENTATIVE, NISHI T 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 FAMILIAL HYPERCHOLESTEROLEMIA 09/20/2008 [employer] REPRESENTATIVE, NISHI T 278.02 OVERWEIGHT 09/20/2008 [employer] REPRESENTATIVE, NISHI T 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 FAMILIAL HYPERCHOLESTEROLEMIA 09/20/2008 [employer] REPRESENTATIVE, NISHI T 278.02 OVERWEIGHT 09/20/2008 [employer] REPRESENTATIVE, NISHI T 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 FAMILIAL HYPERCHOLESTEROLEMIA 09/20/2008 [employer] REPRESENTATIVE, NISHI T 278.02 OVERWEIGHT 09/20/2008 [employer] REPRESENTATIVE, NISHI T 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 FAMILIAL HYPERCHOLESTEROLEMIA 09/20/2008 [employer] REPRESENTATIVE, NISHI T 278.02 OVERWEIGHT 09/20/2008 [employer] REPRESENTATIVE, NISHI T 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 FAMILIAL HYPERCHOLESTEROLEMIA 09/20/2008 [employer] REPRESENTATIVE, NISHI T 278.02 OVERWEIGHT 01/24/2009 959.09 Other [...] T 724.2 lower back pain 11/07/2009 [employer] REPRESENTATIVE, NISHI T 724.2 lower back pain 11/07/2009 SLMIE JOHNSON, NISHI T 724.2 lower back pain 11/07/2009 SLIME JOHNSON, NISHI T 724.2 lower back pain 11/07/2009 SLIME JOHNSON, NISHI T 724.2 lower back pain 01/21/2010 [...] DO, ABBE K 786.2 Cough 01/21/2010 NICHOLS ROCKLINRADHIKA JOHNSON, DEANA N 465.9 Upper Respiratory Infection 01/21/2010 [facility] N 786.2 Cough 01/21/2010 NISHI PALENCIA APRN T 465.9 Upper Respiratory Infection 01/21/2010 NISHI PALENCIA APRN T 786.2 Cough 01/21/2010 SLIME JOHNSON, NISHI T 465.9 Upper Respiratory Infection 01/21/2010 NISHI PALENCIA APRN T 786.2 Cough 01/21/2010 NISHI PALENCIA APRN T 465.9 Upper Respiratory Infection 01/21/2010 NISHI PALENCIA APRN T 786.2 Cough 01/21/2010 NISHI PALENCIA APRN T 465.9 Upper Respiratory Infection 01/21/2010 NISHI PALENCIA APRN T 786.2 Cough 01/21/2010 ZULMA PATINO APRN R 465.9 Upper Respiratory Infection 01/21/2010 ZULMA PATINO APRN R 786.2 Cough 01/21/2010 [employer] REPRESENTATIVE, NISHI T 465.9 Upper Respiratory Infection 01/21/2010 [employer] [employer] REPRESENTATIVENISHI T 786.2 Cough 01/21/2010 [employer] REPRESENTATIVE, NISHI T 465.9 Upper Respiratory Infection 01/21/2010 [employer] REPRESENTATIVE, NISHI T 786.2 Cough 01/21/2010 [employer] REPRESENTATIVE, NISHI T 465.9 Upper Respiratory Infection 01/21/2010 [employer] REPRESENTATIVE, NISHI T 786.2 Cough 01/21/2010 [employer] REPRESENTATIVE, NISHI T 465.9 Upper Respiratory Infection 01/21/2010 [employer] REPRESENTATIVE, NISHI T 786.2 Cough 01/21/2010 [employer] REPRESENTATIVE, NISHI T 465.9 Upper Respiratory Infection 01/21/2010 [...] Acute 07/15/2010 780.79 Malaise And Fatigue 07/15/2010 ACRO DO, ABBE K 466.0 Bronchitis, Acute 07/15/2010 CARO DO, ABBE K 780.79 Malaise And Fatigue 07/15/2010 MAGDALENA ANDINO APRN, DEANA N 466.0 Bronchitis, Acute 07/15/2010 MAGDALENA ANDINO BUSINESS CENTER REPRESENTATIVE, DEANA N 780.79 Malaise And Fatigue 07/15/2010 NISHI PALENCIA APRN T 466.0 Bronchitis, Acute 07/15/2010 NISHI PALENCIA APRN 780.79 Malaise And Fatigue 07/15/2010 NISHI PALENCIA APRN T 466.0 Bronchitis, Acute 07/15/2010 NISHI PALENCIA APRN 780.79 Malaise And Fatigue 07/15/2010 NISHI PALENCIA APRN T 466.0 Bronchitis, Acute 07/15/2010 NISHI PALENCIA APRN T 780.79 Malaise And Fatigue 07/15/2010 [employer] REPRESENTATIVE, NISHI T 466.0 Bronchitis, Acute 07/15/2010 [employer] REPRESENTATIVE, NISHI T 780.79 Malaise And Fatigue 07/15/2010 [employer] REPRESENTATIVE, ZULMA R 466.0 Bronchitis, Acute 07/15/2010 [employer] REPRESENTATIVE, ZULMA R 780.79 Malaise And Fatigue 07/15/2010 [employer] REPRESENTATIVE, NISHI T 466.0 Bronchitis, Acute 07/15/2010 [employer] REPRESENTATIVE, NISHI T 780.79 Malaise And Fatigue 07/15/2010 [employer] REPRESENTATIVE, NISHI T 466.0 Bronchitis, Acute 07/15/2010 [employer] REPRESENTATIVE, NISHI T 780.79 Malaise And Fatigue 07/15/2010 [employer] REPRESENTATIVE, NISHI T 466.0 Bronchitis, Acute 07/15/2010 [employer] REPRESENTATIVE, NISHI T 780.79 Malaise And Fatigue 07/15/2010 [employer] REPRESENTATIVE, NISHI T 466.0 Bronchitis, Acute 07/15/2010 [employer] REPRESENTATIVE, NISHI T 780.79 Malaise And Fatigue 07/15/2010 [employer] REPRESENTATIVE, NISHI T 466.0 Bronchitis, Acute 07/15/2010 [employer] REPRESENTATIVE, NISHI T 780.79 Malaise And Fatigue 01/31/2011 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 01/31/2011 401.1 HYPERTENSION, BENIGN ESSENTIAL 01/31/2011 ABBE CARO DO K 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 01/31/2011 STACY CARO DOA K 401.1 HYPERTENSION, BENIGN ESSENTIAL 01/31/2011 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 01/31/2011 401.1 ESSENTIAL HYPERTENSION BENIGN 01/31/2011 STACY CARO DOA K 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 01/31/2011 STACY CARO DOA K 401.1 ESSENTIAL HYPERTENSION BENIGN 01/31/2011 STACY CARO [...] Stated As Uncontrolled Or Unspecified 01/31/2011 GORDO KIRANSTACYA K 401.1 ESSENTIAL HYPERTENSION BENIGN 01/31/2011 DEANA NEGRETE APRN 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 01/31/2011 DEANA NEGRTEE APRN N 401.1 ESSENTIAL HYPERTENSION BENIGN 01/31/2011 [...] APRN 401.1 ESSENTIAL HYPERTENSION BENIGN 01/31/2011 NISHI PALECNIA APRN 249.60 Secondary Diabetes Mellitus With Neurological [...] NOS 10/21/2011 Ot 414.01 CORONARY ATHEROSCLEROSIS OF [place] CORON 10/21/2011 Ot 724.5 BACKACHE NOS 10/21/2011 [...] N 782.3 EDEMA 05/12/2013 NISHI PALENCIA APRN T 700 CORNS AND CALLOSITIES 05/12/2013 NISHI PALENCIA APRN T 782.3 EDEMA 05/12/2013 SLIME BARRONN, NISHI T 700 CORNS AND CALLOSITIES 05/12/2013 NISHI PALENCIA APRN T 782.3 EDEMA 05/12/2013 SLIME BARRONNNISHI T 700 CORNS AND CALLOSITIES 05/12/2013 NISHI PALENCIA APRN T 782.3 EDEMA 05/12/2013 SLIME BARRONN, NISHI T 700 CORNS AND CALLOSITIES 05/12/2013 NISHI PALENCIA APRN T 782.3 EDEMA 05/12/2013 CAREY JOHNSON, ZULMA R 700 CORNS AND CALLOSITIES 05/12/2013 CAREY BARRONN ZULMA R 782.3 EDEMA 05/12/2013 NISHI PALENCIA APRN T 700 CORNS AND CALLOSITIES 05/12/2013 NISHI PALENCIA APRN T 782.3 EDEMA 05/12/2013 NISHI PALENCIA APRN T 700 CORNS AND CALLOSITIES 05/12/2013 NISHI PALENCIA APRN T 782.3 EDEMA 05/12/2013 NISHI PALENCIA APRN 700 CORNS AND CALLOSITIES 05/12/2013 NISHI PALENCIA APRN 782.3 EDEMA 05/12/2013 NISHI PALENCIA APRN T 700 CORNS AND CALLOSITIES 05/12/2013 NISHI PALENCIA APRN T 782.3 EDEMA 05/12/2013 NISHI PALENCIA APRN 700 [...] 401.9 HYPERTENSION NOS 04/09/2014 GINI WHITE, JEFERSON T Ot 593.9 RENAL URETERAL DIS NOS 04/09/2014 [...] G89.29 OTHER CHRONIC PAIN 01/05/2017 BURTON SUMIT KIRAN Eric Ot E11.9 TYPE 2 DIABETES MELLITUS WITHOUT COMPLIC 01/05/2017 BURTON SUMIT K Ot I10 ESSENTIAL (PRIMARY) HYPERTENSION 01/05/2017 SUMIT MANRIQUE DO K Ot M25.571 PAIN IN RIGHT ANKLE AND JOINTS OF RIGHT 01/05/2017 BURTON SUMIT K Ot M54.16 RADICULOPATHY, LUMBAR REGION 01/05/2017 BURTON SUMIT Eric Ot Z79.4 ALF (CURRENT) USE OF INSULIN 01/05/2017 DEVANTE MANRIQUE DOA Eric Ot Z79.82 ALF (CURRENT) USE OF ASPIRIN 01/05/2017 BURTON DEVANTEA K Ot Z79.84 TOP LIFT CUTTER (CURRENT) USE OF ORAL HYPOGLYC 01/05/2017 BURTON SUMIT K Ot Z98.890 OTHER SPECIFIED POSTPROCEDURAL STATES 04/09/2017 Sandre Nair V64.3 PROCEDURE NOT CARRIED OUT FOR [...] OF L 06/06/2017 DAIJA FANG Ot Z79.4 ALF (CURRENT) USE OF INSULIN 06/06/2017 DAIJA FANG Ot Z79.82 ALF (CURRENT) USE OF ASPIRIN 06/06/2017 DAIJA FANG Ot Z87.891 PERSONAL HISTORY OF NICOTINE DEPENDENCE 09/27/2017 NISHI PALENCIAP Ot E27.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 09/27/2017 NISHI PALENCIAP Ot R07.81 PLEURODYNIA 09/30/2017 NISHI PALENCIA ROOF ASSEMBLER Ot E27.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 09/30/2017 NISHI PALENCIA ROOF ASSEMBLER Ot N28.1 CYST OF KIDNEY, ACQUIRED 09/30/2017 NISHI PALENCIA ROOF ASSEMBLER Ot R07.81 PLEURODYNIA 10/14/2017 NISHI PALENCIA ROOF ASSEMBLER Ot E27.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 10/14/2017 NISHI PALENCIAP Ot N28.1 CYST OF KIDNEY, ACQUIRED 10/14/2017 NISHI PALENCIA Ot R07.81 PLEURODYNIA 11/07/2017 DAIJA FANG Ot E11.40 TYPE 2 DIABETES MELLITUS WITH DIABETIC N 11/07/2017 DAIJA FANG Ot G47.30 SLEEP APNEA, UNSPECIFIED 11/07/2017 DAIJA FANG Ot I10 ESSENTIAL (PRIMARY) HYPERTENSION 11/07/2017 DAIJA FANG Ot J40 BRONCHITIS, NOT SPECIFIED ACUTE OR CH 11/07/2017 DAIJA FANG Ot M47.9 SPONDYLOSIS, UNSPECIFIED 11/07/2017 DAIJA FANG Ot R05 COUGH 11/07/2017 MOE PA, DAIJA L Ot Z79.4 ALF (CURRENT) USE OF INSULIN 11/07/2017 DAIJA FANG Ot Z79.52 ALF (CURRENT) USE OF SYSTEMIC STER 11/07/2017 DAJIA FANG Ot Z79.82 TOP LIFT CUTTER (CURRENT) USE OF ASPIRIN 11/07/2017 DAIJA FANG Ot Z87.891 PERSONAL HISTORY OF NICOTINE DEPENDENCE 11/09/2017 DAIJA FANG Ot E11.40 TYPE 2 DIABETES MELLITUS WITH DIABETIC N 11/09/2017 DAIJA FANG Ot G47.30 SLEEP APNEA, UNSPECIFIED 11/09/2017 DAIJA FANG Ot I10 ESSENTIAL (PRIMARY) HYPERTENSION 11/09/2017 DAIJA FANG Ot J40 BRONCHITIS, NOT SPECIFIED ACUTE OR CH 11/09/2017 DAIJA FANG Ot M47.9 SPONDYLOSIS, UNSPECIFIED 11/09/2017 DAIJA FANG Ot R05 COUGH 11/09/2017 DAIJA FANG Ot Z79.4 ALF (CURRENT) USE OF INSULIN 11/09/2017 DAIJA FANG Ot Z79.82 ALF (CURRENT) USE OF ASPIRIN 11/09/2017 DAIJA FANG Ot Z87.891 PERSONAL HISTORY OF NICOTINE DEPENDENCE 11/09/2017 DAIJA FANG Ot E11.40 TYPE 2 DIABETES MELLITUS WITH DIABETIC N 11/09/2017 DAIJA FANG Ot G47.30 SLEEP APNEA, UNSPECIFIED 11/09/2017 DAIJA FANG Ot I10 ESSENTIAL (PRIMARY) HYPERTENSION 11/09/2017 DAIJA FANG Ot J40 BRONCHITIS, NOT SPECIFIED ACUTE OR CH 11/09/2017 DAIJA FANG Ot M47.9 SPONDYLOSIS, UNSPECIFIED 11/09/2017 DAIJA FANG Ot R05 COUGH 11/09/2017 DAIJA FANG Ot Z79.4 TOP LIFT CUTTER (CURRENT) USE OF INSULIN 11/09/2017 DAIJA FNAG Ot Z79.52 TOP LIFT CUTTER (CURRENT) USE OF SYSTEMIC STER 11/09/2017 DAIJA FANG Ot Z79.82 TOP LIFT CUTTER (CURRENT) USE OF ASPIRIN 11/09/2017 DAIJA FANG Ot Z87.891 PERSONAL HISTORY OF NICOTINE DEPENDENCE 11/13/2017 DAIJA FANG Ot E11.40 TYPE 2 DIABETES MELLITUS WITH DIABETIC N 11/13/2017 DAIJA FANG Ot G47.30 SLEEP APNEA, UNSPECIFIED 11/13/2017 DAIJA FANG Ot I10 ESSENTIAL (PRIMARY) HYPERTENSION 11/13/2017 DAIJA FANG Ot J40 BRONCHITIS, NOT SPECIFIED ACUTE OR CH 11/13/2017 DAIJA FANG Ot M47.9 SPONDYLOSIS, UNSPECIFIED 11/13/2017 DAIJA FANG Ot R05 COUGH 11/13/2017 DAIJA FANG Ot Z79.4 TOP LIFT CUTTER (CURRENT) USE OF INSULIN 11/13/2017 DAIJA FANG Ot Z79.52 TOP LIFT CUTTER (CURRENT) USE OF SYSTEMIC STER 11/13/2017 DAIJA FANG Ot Z79.82 TOP LIFT CUTTER (CURRENT) USE OF ASPIRIN 11/13/2017 DAIJA FANG Ot Z87.891 PERSONAL HISTORY OF NICOTINE DEPENDENCE 01/25/2018 NISHI PALENCIA Ot G89.29 OTHER CHRONIC PAIN 01/25/2018 NISHI PALENCIA Ot E27.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 01/25/2018 NISHI PALENCIA Ot N28.1 CYST OF KIDNEY, ACQUIRED 01/25/2018 NISHI PALENCIA Ot R07.81 PLEURODYNIA 02/01/2018 DAMASO WHITE, MERCED S Ot E11.9 TYPE 2 DIABETES MELLITUS WITHOUT COMPLIC 02/01/2018 DAMASO WHITE, MERCED S Ot I12.9 HYPERTENSIVE CHRONIC KIDNEY DISEASE W ST 02/01/2018 MERCED PETIT MD S Ot N18.3 CHRONIC KIDNEY DISEASE, STAGE 3 (MODERAT 02/01/2018 MERCED PETIT MD S Ot N28.1 CYST OF KIDNEY, ACQUIRED 03/07/2018 DAMASO WHITE, MERCED S Ot E11.9 TYPE 2 DIABETES MELLITUS WITHOUT COMPLIC 03/07/2018 MERCED PETIT MD S Ot I12.9 HYPERTENSIVE CHRONIC KIDNEY DISEASE W ST 03/07/2018 MERCED PETIT MD S Ot N18.3 CHRONIC KIDNEY DISEASE, STAGE 3 (MODERAT 03/07/2018 DAMASO WHITE, MERCED Camargo Ot N28.1 CYST OF KIDNEY, ACQUIRED Procedures Code Description [place] [address] ROUTINE VENIPUNCTURE 07/07/2012 83689 A1C (IN-HOUSE) 07/07/2012 98677 URINE DRUG SCREEN (IN-HOUSE ) 07/07/2012 46432 MICRO ALBUMIN-IN HOUSE 07/07/2012 07313 CMP 07/07/2012 94934 LIPID PANEL 07/07/2012 3470024 GFR CALC (RESULT ONLY) 07/07/2012 81445 CPK 07/08/2012 94785 ROUTINE VENIPUNCTURE 10/13/2012 98617 A1C (IN-HOUSE) 10/13/2012 18375 MICRO ALBUMIN-IN HOUSE 10/13/2012 37564 CMP 10/13/2012 [id number] GFR CALC (RESULT ONLY) 10/13/2012 52604 HEMOCCULT 10/20/2012 08610 HEMOCCULT 10/20/2012 05871 EXCISION BENIGN LESION 2.1- 3 cm (specify location in [facility] description) 10/31/2012 93897 ROUTINE VENIPUNCTURE 01/16/2013 39026 A1C (IN-HOUSE) 01/16/2013 13364 CMP 01/16/2013 05741 LIPID PANEL 01/16/2013 31269 MICRO ALBUMIN-IN HOUSE 05/12/2013 83950 A1C (IN-HOUSE) 05/12/2013 87495 A1C (IN-HOUSE) 10/20/2013 74836 ROUTINE VENIPUNCTURE 12/29/2013 26001 CMP 12/29/2013 89444 LIPID PANEL 12/29/2013 56320 CBC 12/29/2013 00456 A1C (IN-HOUSE) 02/21/2014 86839 HEMOCCULT 04/16/2014 39410 A1C (IN-HOUSE) 06/25/2014 89585 MICRO ALBUMIN-IN HOUSE 06/25/2014 Results Test Result [...] urinalysis with reflex to culture NO NRG [id number] - 09/24/17 13:23 Serum or plasma urea nitrogen measurement (mass/volume) 25 mg/dL 7-18 Serum or plasma creatinine measurement (mass/volume) 1.33 mg/dL 0.60-1.30 Serum or plasma urea nitrogen/creatinine mass ratio 19 NRG Serum or plasma creatinine measurement with calculation of estimated glomerular filtration rate 54 NRG Influenza virus A and B antigen detection - 11/07/17 21:25 FLU RESULT NEGATIVE FOR INFLUENZA A AND B ANTIGENS BY IA NRG PDM - AMPHETAMINES W/ REFLEX d/l ISOMERS - 11/08/17 16:52 Prescribed Drug 1 Lyrica(TM) NRG COMMENT NRG Prescribed Drug 2 Aceta w/Codeine NRG Amphetamine NEGATIVE ng/mL <250 medMATCH Amphetamine CONSISTENT NRG Methamphetamine NEGATIVE ng/mL <250 medMATCH Methamphetamine CONSISTENT NRG RENAL PROFILE - 01/14/18 10:36 GLUCOSE 237 mg/dL 65-99 UREA NITROGEN (BUN) 25 mg/dL 7-25 CREATININE 1.39 mg/dL 0.70-1.25 eGFR NON-AFR. SCOTTISH 52 mL/min/1.73m2 > OR=60 eGFR 60 mL/min/1.73m2 > OR=60 BUN/CREATININE RATIO 18 (calc) 6-22 SODIUM 140 mmol/L 135-146 POTASSIUM 4.6 mmol/L 3.5-5.3 CHLORIDE 106 mmol/L 98-110 CARBON DIOXIDE 25 mmol/L 20-31 CALCIUM 9.1 mg/dL 8.6-10.3 ALBUMIN 4.2 g/dL 3.6-5.1 PHOSPHATE ( PHOSPHORUS) 3.7 mg/dL 2.1-4.3 CBC - 01/14/18 10:36 WHITE BLOOD CELL COUNT 6.6 Thousand/uL 3.8-10.8 RED BLOOD CELL COUNT 4.73 Million/uL 4.20-5.80 HEMOGLOBIN 12.9 g/dL 13.2-17.1 HEMATOCRIT 39.9 % 38.5-50.0 MCV 84.4 fL 80.0-100.0 MCH 27.3 pg 27.0-33.0 MCHC 32.3 g/dL 32.0-36.0 RDW 14.3 % 11.0-15.0 PLATELET COUNT 173 Thousand/uL 140-400 MPV 10.8 fL 7.5-12.5 ABSOLUTE NEUTROPHILS 4587 cells/uL 2425-7126 ABSOLUTE LYMPHOCYTES 1353 cells/uL 850-3900 ABSOLUTE MONOCYTES 502 cells/uL 200-950 ABSOLUTE EOSINOPHILS 119 cells/uL 15-500 ABSOLUTE BASOPHILS 40 cells/uL 0-200 NEUTROPHILS 69.5 % NRG LYMPHOCYTES 20.5 % NRG MONOCYTES 7.6 % NRG EOSINOPHILS 1.8 % NRG BASOPHILS 0.6 % NRG UA W/ MICROSCOPY - 01/14/18 10:36 COLOR YELLOW YELLOW APPEARANCE CLEAR CLEAR SPECIFIC GRAVITY 1.023 1.001-1.035 PH < OR=5.0 5.0-8.0 GLUCOSE 3+ NEGATIVE BILIRUBIN NEGATIVE NEGATIVE KETONES NEGATIVE NEGATIVE OCCULT BLOOD NEGATIVE NEGATIVE PROTEIN TRACE NEGATIVE NITRITE NEGATIVE NEGATIVE LEUKOCYTE ESTERASE NEGATIVE NEGATIVE WBC NONE SEEN /HPF < OR=5 RBC NONE SEEN /HPF < OR=2 SQUAMOUS EPITHELIAL CELLS NONE SEEN /HPF < OR=5 BACTERIA NONE SEEN /HPF NONE SEEN HYALINE CAST NONE SEEN /LPF NONE SEEN CMP - 02/14/18 15:05 GLUCOSE 151 mg/dL 65-99 UREA NITROGEN (BUN) 27 mg/dL 7-25 CREATININE 1.62 mg/dL 0.70-1.25 eGFR NON-AFR. SCOTTISH 43 mL/min/1.73m2 > OR=60 eGFR 50 mL/min/1.73m2 > OR=60 BUN/CREATININE RATIO 17 (calc) 6-22 SODIUM 138 mmol/L 135-146 POTASSIUM 4.6 mmol/L 3.5-5.3 CHLORIDE 102 mmol/L 98-110 CARBON DIOXIDE 16 mmol/L 20-31 CALCIUM 9.4 mg/dL 8.6-10.3 PROTEIN, TOTAL 7.1 g/dL 6.1-8.1 ALBUMIN 4.2 g/dL 3.6-5.1 GLOBULIN 2.9 g/dL (calc) 1.9-3.7 ALBUMIN/GLOBULIN RATIO 1.4 (calc) 1.0-2.5 BILIRUBIN, TOTAL 1.0 mg/dL 0.2-1.2 ALKALINE PHOSPHATASE 72 U/L 40-115 AST 24 U/L 10-35 ALT 30 U/L 9-46 VITAMIN B12 - 02/14/18 15:05 VITAMIN B12 410 pg/mL 200-1100 A1C - 04/04/18 10:43 HEMOGLOBIN A1c 9.1 % of total Hgb <5.7 Encounters ACCT No. Visit Date/Time Discharge Status Pt. Type Provider Facility Loc./Unit Complaint [id number] 08/15/2014 11:23:00 08/15/2014 23:59:59 CLS Outpatient NISHI PALENCIA APRN [id number] 07/25/2014 11:25:00 07/25/2014 23:59:59 CLS Outpatient NISHI PALENCIA APRN [id number] 06/25/2014 11:05:00 06/25/2014 23:59:59 CLS Outpatient NISHI PALENCIA APRN [id number] 05/23/2014 10:05:00 05/23/2014 23:59:59 CLS Outpatient NISHI PALENCIA APRN [id number] 04/23/2014 09:17:00 04/23/2014 23:59:59 CLS Outpatient NISHI PALENCIA APRN [id number] 04/16/2014 13:23:00 04/16/2014 23:59:59 CLS Outpatient ZULMA PATINO APRN [id number] 02/21/2014 11:53:00 02/21/2014 23:59:59 CLS Outpatient NISHI PALENCIA APRN [id number] 12/29/2013 09:51:00 12/29/2013 23:59:59 CLS Outpatient NISHI PALENCIA APRN [id number] 11/24/2013 11:09:00 11/24/2013 23:59:59 CLS Outpatient NISHI PALENCIA APRN [id number] 10/20/2013 10:36:00 10/20/2013 23:59:59 CLS Outpatient NISHI PALENCIA APRN [id number] 08/08/2013 09:11:00 08/08/2013 23:59:59 CLS Outpatient DEANA NEGRETE APRN [id number] 05/12/2013 15:48:00 05/12/2013 23:59:59 CLS Outpatient ABBE CARO DO Eric [id number] 10/31/2012 10:53:00 10/31/2012 23:59:59 CLS Outpatient ABBE CARO DO Eric [id number] 10/20/2012 10:06:00 10/20/2012 23:59:59 CLS Outpatient ABBE CARO DO Eric [id number] 10/13/2012 09:50:00 10/13/2012 23:59:59 CLS Outpatient ABBE CARO DO Eric [id number] 09/15/2012 11:48:00 09/15/2012 23:59:59 CLS Outpatient [id number] 07/07/2012 07:45:00 07/07/2012 23:59:59 CLS Outpatient ABBE CARO DO Eric [id number] 07/07/2012 07:45:00 07/07/2012 23:59:59 CLS Outpatient [id number] 01/16/2013 13:04:00 Document Registration [id number] 10/13/2012 09:50:00 Document Registration [id number] 05/16/2016 08:07:00 Document Registration [id number] 04/09/2017 00:00:00 04/09/2017 10:30:00 DIS Outpatient Sander Nair [id number] 04/06/2017 10:08:00 04/06/2017 23:59:00 DIS Outpatient Sander Nair [id number] 04/08/2017 15:30:37 Document Registration [id number] 02/14/2018 14:20:00 02/14/2018 23:59:59 CLS Outpatient NISHI PALENCIA APRN [facility] [id number] 04/04/2018 10:30:00 Document Registration [id number] 02/14/2018 14:20:00 Document Registration [id number] 01/14/2018 10:40:00 Document Registration [id number] 11/08/2017 16:00:00 Document Registration [id number] 01/31/2018 07:25:00 01/31/2018 23:59:59 CLS Outpatient DAMASO WHITE, MERCED Camargo [facility] RAD CKD, SIMPLE RENAL CYST [id number] 11/07/2017 18:38:00 11/07/2017 22:15:00 DIS Emergency DAIJA FANG [facility] ER CONGESTED,COUGH,SOB [id number] 09/24/2017 13:09:00 09/24/2017 23:59:59 CLS Outpatient NISHI PALENCIA [facility] LT FLANK PAIN R10.9 [id number] 06/06/2017 11:26:00 06/06/2017 13:44:00 DIS Emergency DAIJA FANG [facility] ER BACK/L SIDE PAIN [id number] 01/05/2017 17:42:00 01/05/2017 19:27:00 DIS Emergency SUMIT MANRIQUE DO [facility] ER POST OP/R FOOT PAIN AND TOE DISCOLORATION [id number] 03/17/2016 15:10:00 03/17/2016 23:59:59 CLS Outpatient NISHI PALENCIA [facility] OTHER CHRONIC PAIN [id number] 04/09/2014 10:08:00 04/09/2014 11:57:00 DIS Emergency GINI WHITE, JEFERSON Baires [facility] ER BACK PAIN [id number] 04/20/2018 14:55:00 ACT Inpatient LAURI WHITE, PAKO Abad [facility] 4TH CHEST PAIN,R/O ACS [id number] 03/04/2012 12:02:00 Document Registration [id number] 10/20/2011 15:10:00 Document Registration [id number] 10/20/2011 11:10:00 Document Registration [id number] 10/15/2011 11:11:00 Document Registration [id number] 10/08/2011 10:32:00 Document Registration
[2018-04-20] MEDS ORDERED: INSU100I29 SQ (16:31)
[2018-04-20] MEDS ORDERED: INSU100I14 SQ (16:31)
[2018-04-20] MEDS ORDERED: LISI40TA PO (16:31)
[2018-04-20] MEDS ORDERED: ATOR20TA66 PO (16:31)
[2018-04-20] MEDS ORDERED: OXYC1TAB12 PO ×2 (16:31→16:35)
[2018-04-20] MEDS ORDERED: METF-397 PO (16:31)
[2018-04-20] MEDS ORDERED: ASPI325T32 PO (16:31)
[2018-04-20] MEDS ORDERED: RT-ALBUTEROL SULF 2.5 MG/3 ML PRE-MIX VIAL INH PRN (16:45)
[2018-04-20] MEDS ORDERED: RT-ALBUINH IH (16:49)
[2018-04-20] MEDS ORDERED: METO100T12 PO (16:49)
[2018-04-20] MEDS: inSUlin ASPART (NovoLOG) 1 UNIT/0.01 ML (CHARGE PER UNIT) SC SCH (17:28)
[2018-04-20] MEDS ORDERED: oxyCODONE/APAP 10/325MG (PERCOCET 10) TABLET PO PRN (17:30)
[2018-04-20] MEDS: GABAPENTIN 400 MG (NEURONTIN) CAP PO SCH ×2 (17:38→20:16)
[2018-04-20 20:08] VITALS: BP 182/78
[2018-04-20] MEDS: oxyCODONE/APAP 10/325MG (PERCOCET 10) TABLET PO SCH (20:16)
[2018-04-20] MEDS: meTOprolol TARTRATE 25 MG (LOPRESSOR) TABLET PO SCH (20:16)
[2018-04-20] MEDS: ATORVASTATIN 40 MG (LIPITOR) TABLET PO SCH (20:16)
[2018-04-20] MEDS: inSUlin DETERMIR 1 UNIT/0.01 ML (LEVEMIR) CHARGE PER UNIT SQ SCH (20:36)
[2018-04-20] MEDS ORDERED: NON-FORMULARY MEDICATION 1 EA EA (Gabapentin 800 MG) PO SCH (21:00)
[2018-04-20] MEDS ORDERED: GABAPENTIN 400 MG (NEURONTIN) CAP PO SCH ×2 (21:00)
[2018-04-20] MEDS ORDERED: inSUlin DETERMIR 1 UNIT/0.01 ML (LEVEMIR) CHARGE PER UNIT SQ SCH (21:15)
[2018-04-20] MEDS ORDERED: RT-ALBUTEROL SULF 2.5 MG/3 ML PRE-MIX VIAL IH PRN (21:15)
[2018-04-20] MEDS: CATHETER FLUSH 10 ML SYR IV SCH (22:00)
[2018-04-20 23:50] VITALS: BP 160/77
[2018-04-21] VITALS (7 sets, daily range): BP systolic 99–206; BP diastolic 56–88
[2018-04-21] MEDS: inSUlin ASPART (NovoLOG) 1 UNIT/0.01 ML (CHARGE PER UNIT) SC SCH ×3 (05:28→16:02)
[2018-04-21] MEDS: CATHETER FLUSH 10 ML SYR IV SCH ×3 (05:28→21:31)
[2018-04-21 05:57] LABS: BASOPHILS % (AUTO) 0 % (0-10); EOSINOPHILS # (AUTO) 0.2 10^3/uL (0.0-0.3); EOSINOPHILS % (AUTO) 2 % (0-10); HEMATOCRIT 33 % (40-54); HEMOGLOBIN 10.9 G/DL (13.3-17.7); LYMPHOCYTES # (AUTO) 1.7 X 10^3 (1.0-4.0); LYMPHOCYTES % (AUTO) 25 % (12-44); MEAN CORPUSCULAR HEMOGLOBIN 28 PG (25-34); MEAN CORPUSCULAR HGB CONC 33 G/DL (32-36); MEAN CORPUSCULAR VOLUME 86 FL (80-99); MEAN PLATELET VOLUME 11.2 FL (7.4-10.4); MONOCYTES # (AUTO) 0.6 X 10^3 (0.0-1.0); MONOCYTES % (AUTO) 8 % (0-12); NEUTROPHILS # (AUTO) 4.3 X 10^3 (1.8-7.8); NEUTROPHILS % (AUTO) 64 % (42-75); PLATELET COUNT 154 10^3/uL (130-400); RED BLOOD COUNT 3.86 10^6/uL (4.35-5.85); RED CELL DISTRIBUTION WIDTH 14.6 % (10.0-14.5); WHITE BLOOD COUNT 6.7 10^3/uL (4.3-11.0)
[2018-04-21 06:13] LABS: ANISOCYTOSIS SLIGHT; BAND NEUTROPHILS 0 %; BASOPHILS % (MANUAL) 0 %; EOSINOPHILS % (MANUAL) 2 %; LYMPHOCYTES % (MANUAL) 32 %; MONOCYTES % (MANUAL) 3 %; NEUTROPHILS % (MANUAL) 63 %; POLYCHROMASIA SLIGHT
[2018-04-21 06:14] LABS: ROULEAUX SLIGHT
[2018-04-21 06:40] LABS: CALCIUM 8.7 MG/DL (8.5-10.1); CREATININE SERUM 1.25 MG/DL (0.60-1.30); POTASSIUM 4.6 MMOL/L (3.6-5.0)
[2018-04-21 06:42] LABS: CHOLESTEROL 120 MG/DL (< 200); HDL CHOLESTEROL 27 MG/DL (40-60); TRIGLYCERIDES 137 MG/DL (<150); VLDL CHOLESTEROL 27 MG/DL (5-40)
[2018-04-21] MEDS ORDERED: REGADENOSON 0.4 MG/5 ML SYR (LEXISCAN) IV ONE ×2 (07:50→08:15)
--- NOTE | 2018-04-21 08:27 | Cardiology Progress Note ---
Subjective Date Seen by Provider: Apr 21, 2018 Time Seen by Provider: 08:23 Subjective/Events-last exam Patient was seen in the stress lab, feeling better, no new complaint Review of Systems General: No Chills, No Night Sweats, No Fatigue, No Malaise, No Appetite, No Other HEENT: No Head Aches, No Visual Changes, No Eye Pain, No Ear Pain, No Dysphasia , No Sinus Congestion, No Post Nasal Drip, No Sore Throat, No Other Pulmonary: Dyspnea; No Cough, No Pleuritic Chest Pain, No Other Cardiovascular: No: Chest Pain, Palpitations, Orthopnea, Paroxysmal Noc. Dyspnea, Edema, Lt Headedness, Other Objective-Cardiology Exam Last Set of Vital Signs Vital Signs 04/20/18 04/21/18 04/21/18 16:34 04:10 07:59 Temp 97.9 Pulse 71 Resp 17 B/P (MAP) 194/79 (117) Pulse Ox 96 O2 Delivery Room Air FiO2 21 Capillary Refill : Less Than 3 Seconds I&O Intake and Output 04/21/18 00:00 Intake Total 940 ml Output Total 475 ml Balance 465 ml Intake Oral 940 ml Output Urine Total 475 ml Daily Weight Change No General: Alert, Oriented X3, Cooperative HEENT: Atraumatic, PERRLA Neck: Supple, No JVD, No Thyromegaly Lungs: Clear to Auscultation, Normal Air Movement Heart: Regular Rate, Normal S1, Normal S2, No Murmurs Abdomen: Normal Bowel Sounds, Soft, No Tenderness, No Hepatosplenomegaly, No Masses Extremities: No Clubbing, No Cyanosis, Normal Pulses, No Tenderness/Swelling, Other (mild edema) Skin: No Rashes, No Breakdown, No Significant Lesion Neuro: Normal Gait, Normal Speech, Strength at 5/5 X4 Ext, Normal Tone, Sensation Intact Psych/Mental Status: Mental Status NL, Mood NL Results Lab Laboratory Tests 04/20/18 12:15 04/21/18 05:20 A/P-Cardiology Admission Diagnosis CP elevated BNP HTN HLP Assessment/Plan Chest pain, nonspecific etiology- EKG reveals SR with no acute ST changes, cardiac enzymes negative. Discussed management plan with patient, he has multiple risk factors for underlying CAD. Stress test today Dyspnea on exertion- reporting improvement, continue to monitor Mild to moderate CAD per cardiac cath done 2012. For stress test today Hypertension, hold Lisinopril secondary to Hyperkalemia, monitor BP Hyperlipidemia, controlled, continue to monitor DM- management per PCP Obesity Family hx of CAD <55y/o CRI- continue to monitor renal function. COPD, Consider Pulm consult Clinical Quality Measures DVT/VTE Risk/Contraindication: Risk Factor Score Per Nursin RFS Level Per Nursing on Admit: 3=High RODERICK BOO MD Apr 21, 2018 08:27
[2018-04-21] MEDS: meTOprolol TARTRATE 25 MG (LOPRESSOR) TABLET PO SCH ×2 (09:55→21:30)
[2018-04-21] MEDS: oxyCODONE/APAP 10/325MG (PERCOCET 10) TABLET PO SCH ×3 (09:55→21:31)
[2018-04-21] MEDS: ASPIRIN E.C. 81 MG (ECOTRIN) TAB PO SCH (09:55)
[2018-04-21] MEDS: lisINopril 40 MG (PRINIVIL) TABLET PO SCH (09:55)
[2018-04-21] MEDS: GABAPENTIN 400 MG (NEURONTIN) CAP PO SCH ×3 (09:55→21:30)
[2018-04-21] MEDS: inSUlin DETERMIR 1 UNIT/0.01 ML (LEVEMIR) CHARGE PER UNIT SQ SCH ×2 (09:56→21:31)
--- NOTE | 2018-04-21 15:30 | STRESS TEST ---
DATE OF SERVICE: 04/21/2018 LEXISCAN MYOVIEW STRESS TEST REPORT REFERRING PHYSICIAN: [facility]. Baseline heart rate is 59, baseline blood pressure 206/86. Baseline EKG is sinus rhythm with nonspecific T-wave abnormality. In summary, the patient was injected with 10.71 mCi of technetium-99 Myoview and the resting images were obtained. Then, the patient received 0.4 mg of Lexiscan followed by 32.8 mCi of technetium-99 Myoview. Throughout the test, there were no EKG changes. Continued to have baseline EKG abnormality. The resting and stress images were reviewed and compared in the short axis, horizontal long axis, and vertical long axis views. Review of the images showed diaphragmatic attenuation affecting the quality of the images, mild irregularity at the inferoapical and anterior leg apical segment of the left ventricle. No significant ischemia was noted. SSS is 4, SDS 3, TID value of 1.1. On the gated images, the left ventricle appeared to be prominent with end diastolic volume 134 mL and systolic volume 82 mL. Diffuse left ventricular hypokinesia with calculated ejection fraction 39%. CONCLUSION: 1. The patient tolerated Lexiscan well. 2. Baseline EKG abnormality persisted throughout test. 3. Nondiagnostic EKG changes persisted throughout test. 4. Prominent left ventricle with mild diffuse left ventricular hypokinesia, calculated ejection fraction 39%. Job ID: [id number] DocumentID: [id number] Dictated Date: 04/21/2018 15:18:30 [employer]on Gluing Machine Operator Date: 04/21/2018 15:29:07 Dictated By: RODERICK BOO MD
[2018-04-21] MEDS ORDERED: ENOXAPARIN 40 MG/0.4 ML (LOVENOX) SYR SQ SCH (17:45)
--- NOTE | 2018-04-21 18:06 | History & Physicial (CHS) ---
HPI History of Present Illness: 67 yo male presented with several day history of shortness of breath with exertion, heaviness in chest and cough. Denies fever. He had pneumonia previously that felt similar and that is what he thought was going on, but when he went to walk-in and they did EKG, they sent him to the ER. His troponin was negative and he had stress test this am with results pending. He does state he has done spirometry at clinic, but denies diagnosis of COPD. He has a "red" inhaler that he occasionally uses. He smoked for several years many years ago. Source: patient Date seen by provider: Apr 21, 2018 Time Seen by Provider: 10:25 Attending Physician Pako Solorzano MD PCP Ciro Powell MD Consult RODERICK BOO MD Date of Admission Apr 20, 2018 at 15:50 Home Medications Home Medications Reviewed patient Home Medication Reconciliation performed by pharmacy medication reconciliations solar energy technician and/or nursing. Patients Allergies have been reviewed. Allergies Coded Allergies: No Known Drug Allergies (Unverified , 10/08/11) [id number] Hx Patient Social History Marrital Status: Alcohol Use: Denies Use Recreational Drug Use: No Smoking Status: Former Smoker 2nd Hand Smoke Exposure: No Recent Foreign Travel: No Contact w/other who traveled: No Recent Hopitalizations: No Recent Infectious Disease Expo: No Physical Abuse Screen: No Sexual Abuse: No Past Medical History PMHx: DMII HTN HLD Chronic pain SurgHx: Back surgery Knee scope Family Medical History Significant Family History: CAD Under 55 Years Old Review of Systems (CHC) Constitutional: No fever EENTM: No nose congestion, No throat pain Respiratory: see HPI Cardiovascular: see HPI Gastrointestinal: No abdominal pain; constipation; No diarrhea, No nausea, No vomiting Genitourinary: no symptoms reported Skin: No rash Psychiatric/Neurological: No Symptoms Reported Reviewed Test Results Reviewed Test Results Lab Laboratory Tests Test 04/20/18 12:15 04/20/18 17:10 04/20/18 20:26 04/21/18 05:18 Range/Units White Blood Count 6.8 4.3-11.0 10^3/uL Red Blood Count 3.93 L 4.35-5.85 10^6/uL Hemoglobin 11.3 L 13.3-17.7 G/DL Hematocrit 35 L 40-54 % Mean Corpuscular Volume 88 80-99 FL Mean Corpuscular Hemoglobin 29 25-34 PG Mean Corpuscular Hemoglobin Concent 33 32-36 G/DL Red Cell Distribution Width 14.9 H 10.0-14.5 % Platelet Count 163 130-400 10^3/uL Mean Platelet Volume 11.5 H 7.4-10.4 FL Neutrophils (%) (Auto) 71 42-75 % Lymphocytes (%) (Auto) 19 12-44 % Monocytes (%) (Auto) 8 0-12 % Eosinophils (%) (Auto) 2 0-10 % Basophils (%) (Auto) 1 0-10 % Neutrophils # (Auto) 4.8 1.8-7.8 X 10^3 Lymphocytes # (Auto) 1.3 1.0-4.0 X 10^3 Monocytes # (Auto) 0.5 0.0-1.0 X 10^3 Eosinophils # (Auto) 0.1 0.0-0.3 10^3/uL Basophils # (Auto) 0.1 0.0-0.1 10^3/uL Prothrombin Time 14.9 H 12.2-14.7 SEC INR Comment 1.2 0.8-1.4 Activated Partial Thromboplast Time 28 24-35 SEC Sodium Level 135 135-145 MMOL/L Potassium Level 5.4 H 3.6-5.0 MMOL/L Chloride Level 103 98-107 MMOL/L Carbon Dioxide Level 23 21-32 MMOL/L Anion Gap 9 5-14 MMOL/L Blood Urea Nitrogen 28 H 7-18 MG/DL Creatinine 1.49 H 0.60-1.30 MG/DL Estimat Glomerular Filtration Rate 47 BUN/Creatinine Ratio 19 Glucose Level 331 H 70-105 MG/DL Calcium Level 8.7 8.5-10.1 MG/DL Corrected Calcium 8.8 8.5-10.1 MG/DL Magnesium Level 2.4 1.8-2.4 MG/DL Total Bilirubin 0.8 0.1-1.0 MG/DL Aspartate Amino Transf (AST/SGOT) 25 5-34 U/L Alanine Aminotransferase (ALT/SGPT) 28 0-55 U/L Alkaline Phosphatase 59 40-136 U/L Myoglobin 170.9 H 10.0-92.0 NG/ML Troponin I < 0.30 <0.30 NG/ML B-Type Natriuretic Peptide 394.3 H <100.0 PG/ML Total Protein 6.5 6.4-8.2 GM/DL Albumin 3.9 3.2-4.5 GM/DL Lipase 18 8-78 U/L Glucometer 230 H 186 H 140 H 70-110 MG/DL Test 04/21/18 05:20 04/21/18 10:02 04/21/18 15:45 Range/Units White Blood Count 6.7 4.3-11.0 10^3/uL Red Blood Count 3.86 L 4.35-5.85 10^6/uL Hemoglobin 10.9 L 13.3-17.7 G/DL Hematocrit 33 L 40-54 % Mean Corpuscular Volume 86 80-99 FL Mean Corpuscular Hemoglobin 28 25-34 PG Mean Corpuscular Hemoglobin Concent 33 32-36 G/DL Red Cell Distribution Width 14.6 H 10.0-14.5 % Platelet Count 154 130-400 10^3/uL Mean Platelet Volume 11.2 H 7.4-10.4 FL Neutrophils (%) (Auto) 64 42-75 % Lymphocytes (%) (Auto) 25 12-44 % Monocytes (%) (Auto) 8 0-12 % Eosinophils (%) (Auto) 2 0-10 % Basophils (%) (Auto) 0 0-10 % Neutrophils # (Auto) 4.3 1.8-7.8 X 10^3 Lymphocytes # (Auto) 1.7 1.0-4.0 X 10^3 Monocytes # (Auto) 0.6 0.0-1.0 X 10^3 Eosinophils # (Auto) 0.2 0.0-0.3 10^3/uL Basophils # (Auto) 0.0 0.0-0.1 10^3/uL Neutrophils % (Manual) 63 % Lymphocytes % (Manual) 32 % Monocytes % (Manual) 3 % Eosinophils % (Manual) 2 % Basophils % (Manual) 0 % Band Neutrophils 0 % Polychromasia SLIGHT Anisocytosis SLIGHT Rouleau SLIGHT Sodium Level 137 135-145 MMOL/L Potassium Level 4.6 3.6-5.0 MMOL/L Chloride Level 104 98-107 MMOL/L Carbon Dioxide Level 22 21-32 MMOL/L Anion Gap 11 5-14 MMOL/L Blood Urea Nitrogen 27 H 7-18 MG/DL Creatinine 1.25 0.60-1.30 MG/DL Estimat Glomerular Filtration Rate 58 BUN/Creatinine Ratio 22 Glucose Level 133 H 70-105 MG/DL Calcium Level 8.7 8.5-10.1 MG/DL Troponin I < 0.30 <0.30 NG/ML Triglycerides Level 137 <150 MG/DL Cholesterol Level 120 < 200 MG/DL LDL Cholesterol Direct 71 1-129 MG/DL VLDL Cholesterol 27 5-40 MG/DL HDL Cholesterol 27 L 40-60 MG/DL Glucometer 168 H 255 H 70-110 MG/DL Radiology CXR 04/20: Impression: Cardiomegaly and mild central congestion. Physical Exam-(CHC) Physical Exam Vital Signs VS - Last 72 Hours, by Label 04/20/18 04/20/18 04/20/18 04/20/18 12:16 15:47 15:53 16:33 Temp 96.9 96.0 97.6 Pulse 55 55 55 Resp 18 B/P (MAP) 153/70 (97) 165/81 (97) 184/86 (118) Pulse Ox 97 95 97 97 O2 Delivery Room Air Room Air Room Air Room Air 04/20/18 04/20/18 04/20/18 04/20/18 16:34 18:41 19:00 19:35 Pulse 63 84 Pulse Ox 97 95 O2 Delivery Room Air Room Air FiO2 21 04/20/18 04/20/18 04/20/18 04/21/18 20:08 20:16 23:50 01:00 Temp 98.5 97.7 Pulse 65 65 57 Resp 18 17 B/P (MAP) 182/78 (112) 160/77 (104) Pulse Ox 97 97 O2 Delivery Room Air Room Air Room Air 04/21/18 04/21/18 04/21/18 04/21/18 04:10 07:00 07:56 07:59 Temp 97.9 Pulse 56 57 59 71 Resp 17 B/P (MAP) 172/79 (110) 206/56 (106) 194/79 (117) Pulse Ox 94 96 O2 Delivery Room Air 04/21/18 04/21/18 04/21/18 04/21/18 09:35 09:35 09:35 12:00 Temp 98.1 98.1 98.5 Pulse 72 72 56 Resp 20 20 18 B/P (MAP) 99/67 (78) 99/67 (78) 184/88 (120) Pulse Ox 94 94 94 94 O2 Delivery Room Air Room Air Room Air Room Air 04/21/18 04/21/18 13:01 16:15 Temp 98.5 Pulse 58 62 Resp 18 B/P (MAP) 203/81 (121) Pulse Ox 96 O2 Delivery Room Air Capillary Refill : Less Than 3 Seconds General Appearance: no apparent distress, obese Respiratory: lungs clear, normal breath sounds Cardiovascular: regular rate, rhythm, no murmur Gastrointestinal: normal bowel sounds, non tender Extremities: no pedal edema Skin: normal color, warm/dry Assessment/Plan Assessment/Plan Admission Dx Chest pain Admission Status: Observation Assessment & Plan Chest pain- troponin negative, stress test pending Shortness of breath- suspect may be multifactorial. Received lasix today per Cardiology. No evidence of pneumonia. Consider COPD, no wheezing however. Will try oral steroids. May need repeat spirometry and/or further work-up for exertional dyspnea. Will check walking pulse ox as no hypoxia at rest. Acute renal insufficiency- resolved overnight Hyperkalemia- resolved Diabetes- diabetic diet, home insulin, sliding scale insulin DVT ppx- enoxaparin Clinical Quality Measures DVT/VTE Risk/Contraindication: Risk Factor Score Per Nursin RFS Level Per Nursing on Admit: 3=High PAKO SOLORZANO MD Apr 21, 2018 18:05
[2018-04-21] MEDS: predniSONE 20 MG TAB PO SCH (18:14)
[2018-04-21] MEDS: ENOXAPARIN 40 MG/0.4 ML (LOVENOX) SYR SC SCH (18:15)
[2018-04-21] MEDS: ATORVASTATIN 40 MG (LIPITOR) TABLET PO SCH (21:30)
[2018-04-22 00:39] VITALS: BP 185/79
[2018-04-22 04:07] VITALS: BP 185/77
[2018-04-22] MEDS: CATHETER FLUSH 10 ML SYR IV SCH ×2 (05:39→14:25)
[2018-04-22] MEDS: ENOXAPARIN 40 MG/0.4 ML (LOVENOX) SYR SC SCH (05:39)
[2018-04-22 05:55] LABS: HEMOGLOBIN 11.7 G/DL (13.3-17.7); MEAN PLATELET VOLUME 11.1 FL (7.4-10.4); RED BLOOD COUNT 4.08 10^6/uL (4.35-5.85); RED CELL DISTRIBUTION WIDTH 13.8 % (10.0-14.5); WHITE BLOOD COUNT 7.3 10^3/uL (4.3-11.0)
[2018-04-22 06:20] LABS: CREATININE SERUM 1.35 MG/DL (0.60-1.30)
[2018-04-22] MEDS: inSUlin ASPART (NovoLOG) 1 UNIT/0.01 ML (CHARGE PER UNIT) SC SCH ×2 (07:08→11:14)
[2018-04-22 08:00] VITALS: BP 180/68
[2018-04-22] MEDS: predniSONE 20 MG TAB PO SCH (08:33)
[2018-04-22] MEDS: inSUlin DETERMIR 1 UNIT/0.01 ML (LEVEMIR) CHARGE PER UNIT SQ SCH (08:33)
[2018-04-22] MEDS: meTOprolol TARTRATE 25 MG (LOPRESSOR) TABLET PO SCH (08:34)
[2018-04-22] MEDS: GABAPENTIN 400 MG (NEURONTIN) CAP PO SCH ×2 (08:34→13:08)
[2018-04-22] MEDS: lisINopril 40 MG (PRINIVIL) TABLET PO SCH (08:34)
[2018-04-22] MEDS: ASPIRIN E.C. 81 MG (ECOTRIN) TAB PO SCH (08:34)
[2018-04-22] MEDS: oxyCODONE/APAP 10/325MG (PERCOCET 10) TABLET PO SCH ×2 (08:34→13:09)
--- NOTE | 2018-04-22 09:40 | Cardiology Progress Note ---
Subjective Date Seen by Provider: Apr 22, 2018 Time Seen by Provider: 09:38 Subjective/Events-last exam Patient is in bed, feeling better, breathing better Review of Systems General: No Chills, No Night Sweats, No Fatigue, No Malaise, No Appetite, No Other HEENT: No Head Aches, No Visual Changes, No Eye Pain, No Ear Pain, No Dysphasia , No Sinus Congestion, No Post Nasal Drip, No Sore Throat, No Other Pulmonary: Dyspnea; No Cough, No Pleuritic Chest Pain, No Other Cardiovascular: Edema; No: Chest Pain, Palpitations, Orthopnea, Paroxysmal Noc. Dyspnea, Lt Headedness, Other Objective-Cardiology Exam Last Set of Vital Signs Vital Signs 04/20/18 04/21/18 04/22/18 16:34 20:35 08:00 Temp 97.6 Pulse 70 Resp 20 B/P (MAP) 180/68 (105) Pulse Ox 97 O2 Delivery Room Air O2 Flow Rate 0.00 FiO2 21 Capillary Refill : Less Than 3 Seconds I&O Intake and Output 04/22/18 00:00 Intake Total 2270 ml Output Total 700 ml Balance 1570 ml Intake Oral 2270 ml Output Urine Total 700 ml # Voids 6 General: Alert, Oriented X3, Cooperative HEENT: Atraumatic, PERRLA Neck: Supple, No JVD, No Thyromegaly Lungs: Clear to Auscultation, Normal Air Movement Heart: Regular Rate, Normal S1, Normal S2, No Murmurs Abdomen: Normal Bowel Sounds, Soft, No Tenderness, No Hepatosplenomegaly, No Masses Extremities: No Clubbing, No Cyanosis, Normal Pulses, No Tenderness/Swelling, Other (mild edema) Skin: No Rashes, No Breakdown, No Significant Lesion Neuro: Normal Gait, Normal Speech, Strength at 5/5 X4 Ext, Normal Tone, Sensation Intact Psych/Mental Status: Mental Status NL, Mood NL Results Lab Laboratory Tests 04/22/18 05:35 A/P-Cardiology Admission Diagnosis CP elevated BNP HTN HLP Assessment/Plan Chest pain, nonspecific etiology- EKG reveals SR with no acute ST changes, cardiac enzymes negative. Discussed management plan with patient, he has multiple risk factors for underlying CAD. Stress test was negative, no ischemia Dyspnea on exertion- reporting improvement, consult Dr Robles and started on Lasix Mild to moderate CAD per cardiac cath done 2011. For stress test today Hypertension, hold Lisinopril secondary to Hyperkalemia, monitor BP Hyperlipidemia, controlled, continue to monitor DM- management per PCP Obesity Family hx of CAD <55y/o CRI- continue to monitor renal function. COPD, Consider Pulm consult Clinical Quality Measures DVT/VTE Risk/Contraindication: Risk Factor Score Per Nursin RFS Level Per Nursing on Admit: 3=High RODERICK BOO MD Apr 22, 2018 09:40
[2018-04-22] MEDS ORDERED: FUROSEMIDE 40 MG (LASIX) TAB PO NR (09:45)
[2018-04-22 12:00] VITALS: BP 187/76
[2018-04-22] MEDS ORDERED: FURO20TA4 PO (12:02)
[2018-04-22] MEDS ORDERED: PRD50T PO (12:02)
--- NOTE | 2018-04-22 12:04 | Discharge Instructions ---
Discharge [facility] Discharge Medications New, Converted or Re-Newed RX: Transmitted to Pharmacy New Medications: Furosemide (Furosemide) 20 Mg Tablet 20 MG PO DAILY@0700, #30 TAB 0 Refills Prednisone (Prednisone) 50 Mg Tab 50 MG PO DAILY for 4 Days, #4 TAB 0 Refills Continued Medications: Albuterol Sulfate (Proair Hfa) 1 Puff Puff 2 PUFF IH Q6H PRN for SHORTNESS OF BREATH, PUFF 1 PUFF = 90 MCG Aspirin (Aspirin EC) 325 Mg Tablet.dr 325 MG PO DAILY, TAB Atorvastatin Calcium (Atorvastatin Calcium) 20 Mg Tablet 20 MG PO DAILY, TAB Gabapentin (Gabapentin) 800 Mg Tablet 800 MG PO TID, TAB Insulin Aspart (Novolog Flexpen) 300 Units/3 Ml Solution 39 UNITS SQ AC, EA LAST FILLED 02-15-17 (STATES HE RECEIVED A SUPPLY FROM A FRIEND AND FORGETS TO TAKE IT EVERY MEAL) Insulin Detemir (Levemir Flextouch) 100 Unit/1 Ml Insuln.pen 55 UNIT SQ BID, EA LAST FILLED SEP 2017 Lisinopril (Lisinopril) 40 Mg Tablet 40 MG PO DAILY, TAB Metformin HCl (Metformin HCl) 500 Mg Tablet 500 MG PO BID WITH MEALS, TAB Metoprolol Tartrate (Metoprolol Tartrate) 100 Mg Tablet 100 MG PO BID, TAB Oxycodone HCl/Acetaminophen (Percocet 10-325 mg Tablet) 1 Each Tablet 1 TAB PO TID, TAB Oxycodone HCl/Acetaminophen (Percocet 10-325 mg Tablet) 1 Each Tablet 1 TAB PO DAILY PRN for PAIN-MODERATE, TAB Patient Instructions Goal/Follow Up Appt: Follow up with Arsalan Robison on 04/28 at 2 pm. Patient Instructions: Talk to Arsalan about considering seeing Pulmonology and/or repeat lung function testing. Activity & Diet Discharge Diet: Low Sodium Diet, ADA Diet Activity as Tolerated: Yes Orders-Post D/C & Referrals Pneu Vac Indicated: Yes Copy Copies To 1: [address] BETHANY N MD Apr 22, 2018 12:04 pm
[2018-04-22 14:20] VITALS: BP 187/76
--- NOTE | 2018-04-22 17:40 | Discharge Summary ---
Diagnosis/Chief Complaint Date of Admission Apr 20, 2018 at 15:50 Date of Discharge Apr 22, 2018 at 12:03 Admission Diagnosis Admission Diagnosis Chest pain Discharge Diagnosis Chest pain- troponin negative, stress test without ischemia. Suspected may be lung related as noted below. Started on lasix per Dr. Munguia. Shortness of breath- suspect may be multifactorial. Received lasix per Cardiology. No evidence of pneumonia. Consider COPD, no wheezing however. Will try oral steroids. May need repeat spirometry and/or further work-up for exertional dyspnea. No hypoxia with exercise and patient requesting to go home, will follow-up with Dr. Robles outpatient. Sent with prednisone to complete 5 day burst. Acute renal insufficiency- resolved overnight Hyperkalemia- resolved Diabetes- diabetic diet, home insulin, sliding scale insulin Chief Complaint/HPI Chief Complaint/HPI 67 yo male presented with several day history of shortness of breath with exertion, heaviness in chest and cough. Denies fever. He had pneumonia previously that felt similar and that is what he thought was going on, but when he went to walk-in and they did EKG, they sent him to the ER. His troponin was negative and he had stress test this am with results pending. He does state he has done spirometry at clinic, but denies diagnosis of COPD. He has a "red" inhaler that he occasionally uses. He smoked for several years many years ago. Discharge Summary-Simple/Stand Consultations RODERICK MUNGUIA MD Discharge Physical Examination Allergies: Coded Allergies: No Known Drug Allergies (Unverified , 10/08/11) Vitals & I&Os Vital Sign - Last 12Hours Date Time Temp Pulse Resp B/P (MAP) Pulse Ox O2 Delivery O2 Flow Rate FiO2 04/22/18 14:20 63 20 187/76 98 Room Air 0.00 04/22/18 12:00 97.6 04/20/18 16:34 21 Intake and Output 04/22/18 00:00 Intake Total 2270 ml Output Total 700 ml Balance 1570 ml General Appearance: Alert, No Acute Distress Hospital Course See final discharge diagnosis. Radiology Reviewed CXR 04/20: Impression: Cardiomegaly and mild central congestion. Discharge Instructions to patient/family Please see electronic discharge instructions given to patient. Discharge Medications Reviewed and agree with Discharge Medication list on patient's Discharge Instruction sheet Clinical Quality Measures DVT/VTE Risk/Contraindication: Risk Factor Score Per Nursin RFS Level Per Nursing on Admit: 3=High Copy Copies To 1: ELIZ[address] Street BETHANY N MD Apr 22, 2018 17:39
[2018-04-23] MEDS ORDERED: KCL 10 MEQ TAB (MICRO K) PO SCH (07:00)
[2018-04-23] MEDS ORDERED: FUROSEMIDE 20 MG (LASIX) TAB PO SCH (07:00)
== END 2018-04-22 12:03 | disposition home or self-care (01) ==
LOC: EDUNIT# 12:08 → ER 12:10 → UNDOADMOB 14:55 → 4TH 14:55
PROVIDERS: ADMIT Family Medicine; ATTEND Family Medicine
DX: R07.9 Chest pain, unspecified (principal); R06.02 Shortness of breath; N28.9 Disorder of kidney and ureter, unspecified; E87.5 Hyperkalemia; E11.9 Type 2 diabetes mellitus without complications; I10 Essential (primary) hypertension; E78.5 Hyperlipidemia, unspecified; E66.9 Obesity, unspecified; Z82.49 Family history of ischemic heart disease and other diseases of the circulatory system; Z87.891 Personal history of nicotine dependence; Z79.4 Long term (current) use of insulin; Z68.41 Body mass index [BMI] 40.0-44.9, adult
CPT/HCPCS: 36415; 71045; 78452; 80048; 80053; 80061; 82962; 83690; 83735; 83874; 83880; 84484; 85007; 85025; 85027; 85610; 85730; 93005; 93017; 93041; 93306; 94760; 94761; 96374; G0378

== ENCOUNTER → 2018-05-19 | Outpatient (CLI) | payer MEDICARE ==
[~2018-05-19] MED LIST changes: +ASPI325T32 PO; +ATOR20TA66 PO; +FURO20TA4 PO; +INSU100I14 SQ; +INSU100I29 SQ; +METF-397 PO; +METO100T12 PO; +OXYC1TAB12 PO; +PRD50T PO; +RT-ALBUINH IH
[2018-05-19 10:50] LABS: CREATININE SERUM 1.59 MG/DL (0.60-1.30); POTASSIUM 4.7 MMOL/L (3.6-5.0)
== END ==
LOC: LAB 09:57
PROVIDERS: ATTEND Physician Assistant
DX: I25.10 Atherosclerotic heart disease of native coronary artery without angina pectoris (principal); I11.9 Hypertensive heart disease without heart failure; I34.0 Nonrheumatic mitral (valve) insufficiency
CPT/HCPCS: 36415; 80048

== ENCOUNTER → 2018-05-19 | Outpatient (CLI) | payer MEDICARE ==
[2018-05-19 10:21] LABS: BILIRUBIN,URINE NEGATIVE (NEGATIVE); CLARITY,URINE CLEAR; COLOR,URINE YELLOW; GLUCOSE, URINE (UA) 1+ (NEGATIVE); KETONES,URINE NEGATIVE (NEGATIVE); LEUKOCYTE ESTERASE ,URINE NEGATIVE (NEGATIVE); NITRITE,URINE NEGATIVE (NEGATIVE); PH,URINE 5 (5-9); PROTEIN,URINE NEGATIVE (NEGATIVE); UROBILINOGEN,URINE NORMAL (NORMAL)
[2018-05-19 10:35] LABS: SQUAMOUS EPITHELIAL CELL,UR 0-2 /HPF
[2018-05-19 10:35] LABS: RED BLOOD COUNT 4.66 10^6/uL (4.35-5.85); RED CELL DISTRIBUTION WIDTH 14.5 % (10.0-14.5); WHITE BLOOD COUNT 6.4 10^3/uL (4.3-11.0)
[2018-05-19 10:36] LABS: BACTERIA,URINE TRACE /HPF
[2018-05-19 11:21] LABS: ALBUMIN 4.2 GM/DL (3.2-4.5); CREATININE SERUM 1.6 MG/DL (0.60-1.30); PHOSPHORUS 4.4 MG/DL (2.3-4.7); POTASSIUM 4.7 MMOL/L (3.6-5.0); URIC ACID 6.6 MG/DL (2.6-7.2)
== END ==
LOC: LAB 09:53
PROVIDERS: ATTEND Nurse Practitioner
DX: E11.9 Type 2 diabetes mellitus without complications (principal); D64.9 Anemia, unspecified; I12.9 Hypertensive chronic kidney disease with stage 1 through stage 4 chronic kidney disease, or unspecified chronic kidney disease; N18.3 Chronic kidney disease, stage 3 (moderate); N28.1 Cyst of kidney, acquired; R52 Pain, unspecified; E27.8 Other specified disorders of adrenal gland
CPT/HCPCS: 36415; 80061; 80069; 81000; 82306; 82570; 82728; 83540; 83970; 84156; 84550; 85027

== ENCOUNTER → 2018-09-13 | Outpatient (CLI) | payer MEDICARE ==
[~2018-09-13] MED LIST changes: +GABA800T10 PO; -GABA800T2 PO
[2018-09-13 13:39] LABS: MEAN PLATELET VOLUME 10.2 FL (7.4-10.4); RED CELL DISTRIBUTION WIDTH 13.8 % (10.0-14.5); WHITE BLOOD COUNT 5.7 10^3/uL (4.3-11.0)
[2018-09-13 13:58] LABS: CALCIUM 9.2 MG/DL (8.5-10.1); CREATININE SERUM 1.68 MG/DL (0.60-1.30); PHOSPHORUS 3.7 MG/DL (2.3-4.7); POTASSIUM 4.6 MMOL/L (3.6-5.0); URIC ACID 7.3 MG/DL (2.6-7.2)
[2018-09-13 14:41] LABS: BILIRUBIN,URINE NEGATIVE (NEGATIVE); CLARITY,URINE CLEAR; COLOR,URINE YELLOW; GLUCOSE, URINE (UA) NEGATIVE (NEGATIVE); KETONES,URINE NEGATIVE (NEGATIVE); LEUKOCYTE ESTERASE ,URINE NEGATIVE (NEGATIVE); NITRITE,URINE NEGATIVE (NEGATIVE); PH,URINE 5 (5-9); PROTEIN,URINE NEGATIVE (NEGATIVE); UROBILINOGEN,URINE NORMAL (NORMAL)
[2018-09-13 14:52] LABS: BACTERIA,URINE TRACE /HPF; WBC,URINE RARE /HPF
[2018-09-13 15:00] LABS: URINE CREATININE FOR RATIO 65 MG/DL (30-125); URINE PROTEIN FOR RATIO ONLY < 6 MG/DL (6-12)
== END ==
LOC: LAB 13:19
PROVIDERS: ATTEND Nurse Practitioner
DX: E11.22 Type 2 diabetes mellitus with diabetic chronic kidney disease (principal); E55.9 Vitamin D deficiency, unspecified; I12.9 Hypertensive chronic kidney disease with stage 1 through stage 4 chronic kidney disease, or unspecified chronic kidney disease; N18.3 Chronic kidney disease, stage 3 (moderate); N28.1 Cyst of kidney, acquired; E27.8 Other specified disorders of adrenal gland; D64.9 Anemia, unspecified; R35.0 Frequency of micturition; R06.02 Shortness of breath; R35.1 Nocturia
CPT/HCPCS: 36415; 80061; 80069; 81000; 82306; 82570; 82728; 83036; 83540; 83735; 83970; 84156; 84550; 85027

== ENCOUNTER → 2019-01-04 | Outpatient (CLI) | payer MEDICARE, OTHER ==
[2019-01-04 10:57] LABS: HEMOGLOBIN 13.5 G/DL (13.3-17.7); MEAN PLATELET VOLUME 10.6 FL (7.4-10.4); RED CELL DISTRIBUTION WIDTH 13.4 % (10.0-14.5); WHITE BLOOD COUNT 8.3 10^3/uL (4.3-11.0)
[2019-01-04 11:04] LABS: BILIRUBIN,URINE NEGATIVE (NEGATIVE); CLARITY,URINE CLEAR; COLOR,URINE YELLOW; GLUCOSE, URINE (UA) 2+ (NEGATIVE); KETONES,URINE NEGATIVE (NEGATIVE); LEUKOCYTE ESTERASE ,URINE 2+ (NEGATIVE); NITRITE,URINE NEGATIVE (NEGATIVE); PH,URINE 5 (5-9); PROTEIN,URINE 2+ (NEGATIVE); UROBILINOGEN,URINE 1 MG/DL (NORMAL)
[2019-01-04 11:18] LABS: ALBUMIN 3.9 GM/DL (3.2-4.5); CALCIUM 8.8 MG/DL (8.5-10.1); CREATININE SERUM 1.42 MG/DL (0.60-1.30); PHOSPHORUS 3.2 MG/DL (2.3-4.7); POTASSIUM 4.6 MMOL/L (3.6-5.0); URIC ACID 6.1 MG/DL (2.6-7.2)
[2019-01-04 11:21] LABS: BACTERIA,URINE FEW /HPF
== END ==
LOC: LAB 10:35
PROVIDERS: ATTEND Nurse Practitioner
DX: E11.22 Type 2 diabetes mellitus with diabetic chronic kidney disease (principal); N18.3 Chronic kidney disease, stage 3 (moderate); I12.9 Hypertensive chronic kidney disease with stage 1 through stage 4 chronic kidney disease, or unspecified chronic kidney disease; N28.1 Cyst of kidney, acquired; R35.1 Nocturia; R35.0 Frequency of micturition; E55.9 Vitamin D deficiency, unspecified; D64.9 Anemia, unspecified; E79.0 Hyperuricemia without signs of inflammatory arthritis and tophaceous disease; R52 Pain, unspecified; E27.8 Other specified disorders of adrenal gland; R06.09 Other forms of dyspnea; R60.9 Edema, unspecified
CPT/HCPCS: 36415; 80069; 81000; 82306; 82570; 83036; 83970; 84156; 84550; 85027; 87088

== ENCOUNTER 2020-01-22 08:29 | Inpatient (IN) | payer MEDICARE ==
[~2020-01-22] VITALS: Ht 170 cm; Wt 126.0 kg
[~2020-01-22 08:29] MED LIST changes: +AMLO10TA7 PO; +DICL75TA2 PO; +FLUT12AE4 IH
--- OUTSIDE RECORDS SUMMARY | 2020-01-22 09:23 | XMS REPORT ---
Author Author COGEON. 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 Address [address] [address] Care Team Providers Care Mainspring Former Name Role Phone NISHI PALENCIA Unavailable Unavailable SLIMENISHI Unavailable SLIME NISHI Unavailable SLIME, NISHI Unavailable JAIDEN MARTINEZ Unavailable KARLEY KUMARI Unavailable [facility] Unavailable SLIME NISHI Unavailable SLIME NISHI Unavailable SLIME NISHI Unavailable SLIME NISHI Unavailable SLIME NISHI Unavailable SLIME NISHI Unavailable BLAYNE CONTRERAS Unavailable SLIME, NISHI Unavailable JAIDEN [place] Unavailable ABBE CARO Unavailable SLIME, NISHI Unavailable SLIME, NISHI Unavailable SLIME, NISHI Unavailable SLIME, NISHI Unavailable SLIME, NISHI Unavailable BLAYNE CONTRERAS Unavailable SLIME NISHI Unavailable SLIME, NISHI Unavailable SLIME, NISHI Unavailable SLIME, NISHI Unavailable SLIME, NISHI Unavailable SLIME, NISHI Unavailable SLIME, NISHI Unavailable SLIME, NISHI Unavailable SLIME, NISHI Unavailable SLIME, NISHI Unavailable SLIME, NISHI Unavailable SLIME, NISHI Unavailable SLIME, NISHI Unavailable SLIME, NISHI Unavailable SLIME, NISHI Unavailable SLIME, NISHI Unavailable SLIME, NISHI Unavailable SLIME, NISHI Unavailable SLIME, NISHI Unavailable SLIME, NISHI Unavailable SLIME, NISHI Unavailable ADDI STEEL JO Unavailable SLIME, NISHI Unavailable SLIME, NISHI Unavailable SLIME, NISHI Unavailable SLIME, NISHI Unavailable SLIME, NISHI Unavailable SLIME, NISHI Unavailable SLIME, NISHI Unavailable SLIME, NISHI Unavailable SLIME, NISHI Unavailable SLIME, NISHI Unavailable SLIME, NISHI Unavailable BEATRICE AGUIRRE Unavailable SLIME, NISHI Unavailable SLIME, NISHI Unavailable SUMIT MANRIQUE DO Unavailable Unavailable BLAS AGUIRRE Unavailable SLIME, NISHI Unavailable SLIME, NISHI Unavailable SLIME, NISHI Unavailable SLIME, NISHI Unavailable SLIME, NISHI Unavailable SLIME, NISHI Unavailable SLIME, NISHI Unavailable Migration, Doctor Unavailable Unavailable Migration, Doctor Unavailable Unavailable Migration, Doctor Unavailable Unavailable Migration, Doctor Unavailable Unavailable SLIME, NISHI Unavailable SLIME, NISHI Unavailable SLIME, NISHI Unavailable SLIME, NISHI Unavailable SLIME, NISHI Unavailable SLIME, NISHI T Unavailable Unavailable BECKA MICHELE Unavailable Unavailab CHRISTINA Valle APRN Unavailable Unavailable CHRISTINA SIMPSON APRN Unavailable Unavailable TRENA WHITE, TAM Looney Unavailable Unavailable HOWARD ROSE MD Unavailable Unavailable HOWARD ROSE MD Unavailable Unavailable SLIME NISHI Unavailable Unavailable Unavailable NISHI PALENCIA Unavailable ANTONELLA ESPINOSA Unavailable Unavailable Migration, Doctor Unavailable Unavailable DEANA VARGAS Unavailable SLIME NISHI Unavailable SLIME NISHI Unavailable NISHI PALENCIA Unavailable ZULMA PATINO Unavailable Migration, Doctor Unavailable Unavailable Unavailable Unavailable Unavailable Unavailable Unavailable Unavailable Allergies Normalized Allergy Reported Date of Reaction(s) Care Provider Facility Allergy Type classification allergen Allergy Onset DA (18 Unclassified No Known Drug 10-08-2011 - no information ETHAN Not Available sources.) Allergies DO [facility] (64647) no information Unclassified NO KNOWN DRUG NO KNOWN DRUG ALEXI MANDUJANO Not Available (1 source.) ALLERGIES ALLERGIES BETH (01337) Medications Current Medications Medication Ingredient Drug Dose Dates Status Sig Sig Care Class(es) (Normalized) (Original) Provid er no albuterol / Anticholine Active no no n o information ipratropium rgic, information information name (10 beta2-Adren sources.) ergic Agonist Active no DuoNeb no name inform Active ation amLODIPine amLODIPine Dihydropyri 5 mg 07-08-20 Active no Amlodipine no 5 mg oral Translation dine 18 information Besylate 5 name tablet (3 s: [ Calcium MG Orally sources.) Amlodipine Channel Once a day 1 Besylate 10 Sheree tablet 24h mg, 30 Jun, 2018 Amlodipine 30 day(s) 5 MG Oral Active Tablet, Amlodipine Besylate 5 MG] 10 mg 01-24-2018 Active no Amlodipi no name inform ne ation Besylate 10 mg Orally Once a day 1 tablet 24h 18 Jan, 2018 30 day(s) Active benzonatate benzonatate Non-narcoti 100 mg Active no no no 100 mg oral Translation c information information name capsule (4 s: [ Antitussive sources.) Tessalon Perles 100 MG, Tessalon Perles 100 MG] 120 actuat formoterol Corticoster 1 04-28-20 Active take 1 Dulera 200-5 no formoterol / oid, puff(s 18 puff(s) by MCG/ACT name fumarate mometasone beta2-Adren ) inhalation Inhalatio n 0.005 Translation ergic once daily Once a day 1 mg/actuat / s: [ Dulera Agonist puff 24h 20 mometasone 200-5 Apr, 2018 furoate 0.2 MCG/ACT] Active mg/actuat metered dose inhaler (4 sources.) furosemide furosemide Loop 40 mg 01-27-20 Active no Lasix 40 MG no 40 mg oral Translation Diuretic 18 information Orally Onc e name tablet (3 s: [ Lasix a day 1 sources.) 40 MG, tablet 24h Furosemide Jan, 20 MG Oral 30 day(s) Tablet, Active Furosemide 20 MG] 20 mg Active take Furosemi no name 20 mg de 20 MG by 20 MG PO mouth DAILY@07 once 00 30 daily Active guaiFENesin guaiFENesin no 400 mg 02-04-20 Active no no no 400 mg oral Translation information 18 information inform ation name tablet (3 s: [ sources.) Guaifenesin 400 mg] no Humalog no 30 12-13-19 Active no Humalog no information KwikPen 100 information [IU] 16 information Kwi kPen 100 name (1 source.) UNIT/ML UNIT/ML Subcutaneous 3 times a day 30 units 8h December, Active no Levemir no 90 05-13-20 Active no Levemir no information FlexTouch information [IU] 15 information FlexT ouch name (1 source.) 100 UNIT/ML 100 UNIT/ML Subcutaneous Once a day 90 units 24h May, Active levoFLOXaci levoFLOXaci Quinolone 750 mg 01-27-20 Active no Levaquin 750 no n 750 mg n Antimicrobi 18 - information MG Orally n shanna oral tablet Translation al 02-01-20 Once a day 1 (1 source.) s: [ 18 tablet 24h Levaquin Jan, 750 MG] Jan, 5 days Active no ProAir HFA no 2 10-12-19 Active take 2 ProAir HF A no information 108 (90 information puff(s 18 puff(s) by 108 (90 name (1 source.) Base) ) inhalation Base) MCG/ACT every six MCG/ACT hours as Inhalation needed every 6 hrs 2 puffs as needed 6h Oct, Active sildenafil sildenafil Phosphodies 100 mg 07-08-20 Active no Viagra 100 no 100 mg oral Translation terase 5 18 information MG Orally name tablet (1 s: [ Viagra Inhibitor Once a day 1 source.) 100 MG] tablet as needed 24h Jun, 10 days Active Completed/Discontinued Medications Medication Ingredient Drug Dose Dates Status Sig Sig Care Class(es) (Normalized) (Original) Provid er no vitamin D no Suspende no Vitamin D no information information d information Not-Taking nam e (2 sources.) Active no Vitamin no name inform D Active ation Problems Active Problems Problem Normalized Date Last Normalized Normalized Provider Fa cility Classification Problem(s) Recorded Problem Problem Sta tus Duration 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 and 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; chronic MD Flores insufficiency; respiratory Hospital - arrest (adult) failure with [place] (13 sources.) hypoxia (99471) Acute and Acute kidney Episodic Active 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 V ia unspecified failure, MD [place] renal failure unspecified Hospital - (13 sources.) [place] () Deficiency and Anemia, Episodic Active CHRISTINA [facility] Via other anemia unspecified TATIANA [facility] (15 sources.) Hospital - [place] (46486) Other Body Mass Chronic Active RODERICK MUNGUIA , Not Vika ilable nutritional; Index MD (87835) endocrine; and 40.0-44.9, metabolic adult disorders (1 source.) Other lower Cough Episodic Active no name no informat ion respiratory disease (5 sources.) Residual Edema, Episodic Active CHRISTINA [facility] Via codes; unspecified TATIANA Flores unclassified Hospital - (2 sources.) [place] () Genitourinary Frequency of Episodic Active CHRISTINA [facility] V ia symptoms and micturition TATIANA Flores ill-defined Translations: Hospital - conditions (16 [ NOCTURIA, [place] sources.) FREQUENCY OF (48522) MICTURITION, NOCTURIA] Fluid and Hyperkalemia Episodic Active 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 V ia electrolyte MD [place] disorders (19 Hospital - sources.) [place] (37688) Disorders of Hyperlipidemia Chronic Active RODERICK MUNGUIA , Not Available lipid , unspecified (13429) metabolism (22 Translations: sources.) [ HYPERLIPIDEMIA NEC/NOS] Other Hyperuricemia Episodic Active CHRISTINA [facility] Via nutritional; without signs TATIANA [facility] endocrine; and of Hospital - metabolic inflammatory [place] disorders (2 arthritis and (86591) sources.) tophaceous disease 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 SUMIT BURTON , DO Not Vika ilable aftercare (23 (current) use (19652) sources.) of aspirin 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 no name no informati on aftercare (4 (current) use sources.) of systemic steroids Spondylosis; Low back pain no information Active ETHAN Not Available intervertebral Translations: DO [facility] (51082) disc [ SPONDYLOSIS, disorders; UNSPECIFIED, other back OTHER BACK problems (5 SYMPTOMS, sources.) LUMB/LUMBOSAC DISC DEGEN] Heart valve Nonrheumatic Chronic Active BECKA [facility] Via disorders (6 mitral (valve) [facility] Sandra sources.) insufficiency N , [place] [facility] - [place] (58133) Other Obesity, Chronic Active HOWARD ROSE [facility] Via nutritional; unspecified MD [place] endocrine; and Hospital - metabolic [place] disorders (19 (44693) sources.) Other Obesity, Chronic Active BASSANCHEZ BARLOWJI , Not Avai lable nutritional; unspecified MD (16906) endocrine; and metabolic disorders (1 source.) Residual Obstructive Chronic Active 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 Vi a codes; sleep apnea MD [facility] unclassified (adult) Hospital - (13 sources.) (pediatric) [place] (02113) Other lower Other forms of Episodic Active CHRISTINA [facility] V ia respiratory dyspnea DODILEEP [place] disease (2 Hospital - sources.) [place] (23418) Other Other Chronic Active CHRISTINA [facility] Via endocrine specified DOISMAELITT Sandra disorders (21 disorders of Hospital - sources.) adrenal gland [place] (46828) Other Pain in right Episodic Active SUMIT BURTON , DO Not Available non-traumatic ankle and (66984) joint joints of disorders (3 right foot sources.) Screening and Personal Episodic Active 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 (14689) Delirium Unspecified Chronic Active HOWARDMaria Fernanda ROSE [facility] Vi a dementia and dementia MD Flores amnestic and without Hospital - other behavioral [place] cognitive disturbance (14053) disorders (13 sources.) Other diseases Unspecified Episodic Active JEFERSON Not A vailable of kidney and disorder of BRUEGGEMANN , (15511) ureters (2 kidney and MD sources.) ureter Nutritional Vitamin D Chronic Active CHRISTINA [facility] Via deficiencies deficiency, TATIANA [place] (8 sources.) unspecified [facility] (32941) Past or Other Problems Problem Normalized Date Last Normalized Normalized Provider Fa cility Classification Problem(s) Recorded Problem Problem Sta tus Duration Other Abnormal Episodic Completed RODERICK MUNGUIA , Not Avai lable screening for cardiovascular (22847) suspected function conditions study, (not mental unspecified disorders or infectious disease) (1 source.) Residual Family history Episodic Completed RODERICK MUNGUIA No t Available codes; of other (31933) unclassified cardiovascular (1 source.) diseases Other retirement no information no information [facility] Not Available aftercare (2 (current) use (85096) sources.) of oral hypoglycemic drugs Other Long-term Episodic Completed RODERICK MUNGUIA , Not Vika ilable aftercare (1 (current) use (53706) source.) of aspirin Other Long-term Episodic Completed ETHAN Not Availabl e aftercare (2 (current) use [place] , DO (16278) sources.) of insulin Other Long-term Episodic Completed ETHAN Not Availabl e aftercare (2 (current) use [place] , DO (86670) sources.) of other medications Residual Other no information no information SUMIT MANRIQUE DO Not Available codes; specified (54195) unclassified postprocedural (2 sources.) states Procedures Procedure Normalized Procedure Procedure Result Performer Facility Date 04-04-2018 25 hydroxy includes no information no name [facility] fractions if performed [facility] ([id number]) 04-04-2018 Assay of phosphorus no information no name [facility] inorganic [facility] (69346) 04-04-2018 Blood count complete no information [facility] dif[facility] wbc [facility] (52156) 04-04-2018 Collection venous no information no name [facility] blood venipuncture [facility] (28322) 02-14-2018 Collection venous no information no name [facility] blood venipuncture [facility] (61039) 04-04-2018 Creatinine other no information no name [facility] source [facility] (45002) 04-04-2018 Culture bacterial no information no name [facility] quanttative colony [facility] count urine [place] (02679) 04-20-2018 Ecg routine ecg no information no name [facility] w/least 12 lds trcg [facility] w/o i&r [place] (00620) 04-20-2018 EKG, TRACING no information no name [facility] (67351) 03-14-2018 [facility] visit, estab pt no information no name [facility] (22406) 02-14-2018 [facility]HC visit, estab pt no information no name [facility] (39302) 02-03-2018 [facility] visit, estab pt no information no name [facility] (84029) 01-26-2018 [facility] visit, estab pt no information no name [facility] (55330) 01-26-2018 Gluc bld gluc mntr dev no information no name [facility] cleared fda spec home [facility] (81086) 04-04-2018 Hemoglobin no information no name [facility] glycosylated a1c [facility] (19991) 02-14-2018 Hemoglobin no information no name [facility] glycosylated a1c [facility] (65131) 10-19-2014 Hemoglobin no information no name [facility] glycosylated a1c [facility] (26620) 02-21-2014 Hemoglobin no information no name [facility] glycosylated a1c [facility] (12451) 02-14-2018 LAB NOT BILLED BY no information no name [facility] (71229) 04-04-2018 Protein total xcpt no information no name [facility] refractometry urine [facility] ([id number]) 01-26-2018 Radiologic exam chest no information no name [facility] 2 [facility] (17570) 04-04-2018 Renal function panel no information no name [facility] (23984) 04-04-2018 Urnls dip stick/tablet no information no name [facility] reagent auto [facility] (58173) Immunizations The data below is from unstructured sources No Known ImmunizationsNo immunization records.No immunization records. No Known Immunizations No Known Immunizations No Known Immunizations No Known Immunizations No Known Immunizations No Known Immunizations No Known Immunizations No Known Immunizations No Known Immunizations No Known Immunizations No Known Immunizations No Known Immunizations No Known Immunizations No Known Immunizations No Known Immunizations No Known Immunizations No Known Immunizations No Known Immunizations No Known Immunizations No Known Immunizations No Known Immunizations No Known Immunizations No Known Immunizations No Known Immunizations No Known Immunizations No Known Immunizations No Known Immunizations No Known Immunizations No Known Immunizations No Known Immunizations No Known Immunizations No Known Immunizations No Known Immunizations No Known Immunizations No Known Immunizations No Known Immunizations No Known Immunizations No Known Immunizations No Known Immunizations No Known Immunizations No Known Immunizations No Known Immunizations No Known Immunizations No Known Immunizations No Known Immunizations No Known Immunizations No Known Immunizations No Known Immunizations No Known Immunizations No Known Immunizations No Known Immunizations No Known Immunizations No Known Immunizations No Known Immunizations No Known Immunizations No Known Immunizations No Known Immunizations No Known Immunizations No Known Immunizations No Known Immunizations No Known Immunizations No Known Immunizations No Known Immunizations No Known Immunizations No Known Immunizations No Known Immunizations No Known Immunizations No Known Immunizations No Known Immunizations No Known Immunizations No Known Immunizations No Known Immunizations No Known Immunizations No Known Immunizations No Known Immunizations No Known Immunizations No Known Immunizations No Known Immunizations No Known Immunizations No Known Immunizations No Known Immunizations No Known Immunizations No Known Immunizations No Known Immunizations No Known Immunizations No Known Immunizations No Known Immunizations No Known Immunizations No Known Immunizations No Known Immunizations No Known Immunizations No Known Immunizations No Known Immunizations No Known Immunizations No Known Immunizations No Known Immunizations No Known Immunizations No Known Immunizations No Known Immunizations No Known Immunizations No Known Immunizations No Known Immunizations No Known Immunizations No Known Immunizations No Known Immunizations No Known Immunizations No Known Immunizations No Known Immunizations No Known Immunizations No Known Immunizations No Known Immunizations No Known Immunizations No Known Immunizations No Known Immunizations No Known Immunizations No Known Immunizations No Known Immunizations No Known Immunizations No Known Immunizations No Known Immunizations No Known Immunizations No Known Immunizations No Known Immunizations No Known Immunizations No Known Immunizations No Known Immunizations No Known Immunizations No Known Immunizations No Known Immunizations No Known Immunizations No Known Immunizations No Known Immunizations No Known Immunizations No Known Immunizations No Known Immunizations No Known Immunizations No Known Immunizations No Known Immunizations No Known Immunizations No Known Immunizations No Known Immunizations No Known Immunizations No Known Immunizations No Known Immunizations No Known Immunizations No Known Immunizations No Known Immunizations No Known Immunizations No Known Immunizations No Known Immunizations No Known Immunizations No Known Immunizations No Known Immunizations No Known Immunizations No Known Immunizations No Known Immunizations Results Test Name Value Interpretation Reference Range Date Time Fa cility (Normalized) (Normalized) (Medline Reference) xray : chest 2 view (in house) on null NEGATED: no information (no code) [facility] (00814) glucose fingerstick (in house) on null GLUCOSE 189 (no code) [facility] (59113) GLUCOSE unknown (no code) [facility] of HOUSE[facility] (38656) GLUCOSE [id number] (no code) [facility] (IN Center of HOUSE) [facility] (91388) GLUCOSE 06/23/2018 (no code) [facility] (91436) not yet categorized on 2019-10-25 Exp date 07/29 (no code) [facility] (83846) Lot [id number] (no code) [facility] (60309) not yet categorized on 2019-10-04 Control 30-300~+~+ (no code) [facility] () CRE 150~200 (no code) [facility] () Lot # [id number] (no code) [facility] (80108) MICROALBUMIN adnormal (no code) [facility] () laboratory on 2019-10-04 Albumin 4.1 g/dL (N) 3.4 - 5.4 g/dL [facility] [Mass/Vol] [facility] () Albumin DL <= 20 11.5 mg/dL (N) 0.2 - 1.9 mg/dL [facility] mg/L (U) [facility] [Mass/Vol] [facility] () Albumin/Creatini 131 (H) [facility] lth ne (U) [[facility] ratio] [facility] () Albumin/Globulin 2.1 {ratio} (N) 1 - 2.5 {ratio} [facility] [Mass ratio] [facility] () ALP [Catalytic 57 U/L (N) 44 - 147 U/L [facility] activity/Vol] [facility] () ALT [Catalytic 61 U/L (H) 4 - 40 U/L [facility] ealth activity/Vol] [facility] () AST [Catalytic 34 U/L (N) 10 - 34 U/L [facility] activity/Vol] [facility] () Basophils (Bld) 0.019 10*3/uL (N) 0 - 0.3 10*3/uL [facility] [#/Vol] [facility] (76768) Basophils/100 0.2 % (N) 0.5 - 1 % [facility] WBC (Bld) [facility] () Bilirubin 0.7 mg/dL (N) 0.1 - 1.2 mg/dL [facility] [Mass/Vol] [facility] () Calcium 9.2 mg/dL (N) 8.5 - 10.2 mg/dL [facility] [Mass/Vol] [facility] (48555) Chloride 100 mmol/L (N) 95 - 106 mmol/L [facility] [Moles/Vol] [facility] (81786) CO2 [Moles/Vol] 32 mmol/L (N) 23 - 29 mmol/L [facility] (27107) Color (U) 05/2020~clear~ye (no code) [facility] llow [facility] (64967) Creatinine (U) 88 mg/dL (N) [facility] h [Mass/Vol] [facility] (86694) Creatinine 1.46 mg/dL (H) [facility] h [Mass/Vol] [facility] (24412) Eosinophils 0.068 10*3/uL (N) 0.05 - 0.5 [facility] (Bld) [#/Vol] 10*3/uL [facility] (42028) Eosinophils/100 0.7 % (N) 1 - 4 % [facility] WBC (Bld) [facility] (58942) Erythrocyte 14.0 % (N) 11.6 - 14.6 % [facility] distribution [facility] (RBC) [facility] [Ratio] (08990) GFR/1.73 sq M 56 (L) 90 - 120 [facility] predicted among mL/min/{1.73_m2} mL/min/{1.73_m2} [facility] MDRD [facility] (S/P/Bld) [Vol (32347) rate/Area] GFR/1.73 sq 48 (L) 90 - 120 [facility] M.predicted MDRD mL/min/{1.73_m2} mL/min/{1.73_m2} [facility] (S/P/Bld) [Vol [facility] rate/Area] (74328) Globulin (S) 2.0 g/dL (N) 2 - 3.5 g/dL Community [facility] [Mass/Vol] [facility] (20883) Glucose 182 mg/dL (H) 60 - 125 mg/dL [facility] [Mass/Vol] [facility] (70683) Hematocrit (Bld) 41.0 % (N) 36.1 - 50.3 % [facility] ity Health [Volume [facility] (53471) Hemoglobin (Bld) 13.0 g/dL (L) 12.1 - 17.2 g/dL [facility] [Mass/Vol] [facility] (39111) Lymphocytes 1.562 10*3/uL (N) 0.9 - 2.9 [facility] (Bld) [#/Vol] 10*3/uL [facility] (55723) Lymphocytes/100 16.1 % (N) 20 - 40 % [facility] WBC (Bld) [facility] (44116) [facility]CH (RBC) 27.8 pg (N) 27 - 31 pg [facility] [Entitic mass] [facility] ([id number]) MCHC (RBC) 31.7 g/dL (L) 32 - 36 g/dL [facility] [Mass/Vol] [facility] (93879) MCV (RBC) 87.8 fL (N) 80 - 100 fL [facility] [Entitic vol] [facility] (01106) Monocytes (Bld) 0.475 10*3/uL (N) 0.3 - 0.9 [facility] [#/Vol] 10*3/uL [facility] (51874) Monocytes/100 4.9 % (N) 2 - 8 % [facility] WBC (Bld) [facility] (22796) Neutrophils 7.576 10*3/uL (N) 1.7 - 7 10*3/uL [facility] (Bld) [#/Vol] [facility] (92424) Neutrophils/100 78.1 % (N) 40 - 60 % [facility] WBC (Bld) [facility] (53218) Platelet mean 10.7 fL (N) 7.2 - 11.7 fL [facility] volume (Bld) [facility] [Entitic vol] [facility] (87554) Platelets (Bld) 264 10*3/uL (N) 150 - 450 [facility] [#/Vol] 10*3/uL [facility] (39015) Potassium 4.4 mmol/L (N) 3.7 - 5.2 mmol/L [facility] [Moles/Vol] [facility] (34322) Protein 6.1 g/dL (N) 6.4 - 8.3 g/dL [facility] [Mass/Vol] [facility] (44133) RBC (Bld) 4.67 10*6/uL (N) 4.2 - 6.1 [facility] [#/Vol] 10*6/uL [facility] (64670) Sodium 140 mmol/L (N) 135 - 145 mmol/L [facility] [Moles/Vol] [facility] (97749) Urea nitrogen 29 mg/dL (H) 7 - 20 mg/dL [facility] [Mass/Vol] [facility] (70840) Urea 20 mg/mg (N) 6 - 22 mg/mg [facility] nitrogen/Creatin [facility] [Mass ratio] [facility] (38176) WBC (Bld) 9.7 10*3/uL (N) 3.5 - 10.5 [facility] [#/Vol] 10*3/uL [facility] (59217) not yet categorized on 2019-08-04 Exp date 05/2021 (no code) [facility] (40983) Lot [id number] (no code) [facility] (10321) Previous A1c 11. (no code) [facility] (86326) laboratory on 2019-08-04 Albumin 4.0 g/dL (N) 3.4 - 5.4 g/dL [facility] [Mass/Vol] [facility] (09851) Albumin/Globulin 1.6 {ratio} (N) 1 - 2.5 {ratio} [facility] [Mass ratio] [facility] (41331) ALP [Catalytic 80 U/L (N) 44 - 147 U/L [facility] activity/Vol] [facility] (76662) ALT [Catalytic 27 U/L (N) 4 - 40 U/L [facility] activity/Vol[facility] () AST [Catalytic 29 U/L (N) 10 - 34 U/L [facility] activity/Vol] [facility] (90281) Basophils (Bld) 0.058 10*3/uL (N) 0 - 0.3 10*3/uL [facility] [#/Vol] [facility] (58695) Basophils/100 0.9 % (N) 0.5 - 1 % [facility] WBC (Bld) [facility] () Bilirubin 0.7 mg/dL (N) 0.1 - 1.2 mg/dL [facility] [Mass/Vol] [facility] (18069) Calcium 9.3 mg/dL (N) 8.5 - 10.2 mg/dL [facility] [Mass/Vol] [facility] (14370) Chloride 98 mmol/L (N) 95 - 106 mmol/L [facility] [Moles/Vol] [facility] (84044) Cholesterol 141 mg/dL (N) 180 - 200 mg/dL [facility] [Mass/Vol] [facility] (48426) Cholesterol in 24 mg/dL (L) [facility] HDL [Mass/Vol] [facility] () Cholesterol in 80 mg/dL (N) 0 - 100 mg/dL [facility] LDL [Mass/Vol] [facility] (38203) Cholesterol non 117 mg/dL (N) [facility] HDL [Mass/Vol] [facility] (86210) Cholesterol.tota 5.9 {ratio} (H) [facility] l/Cholesterol in [facility] HDL [Mass ratio] [facility] (70725) CO2 [Moles/Vol] 26 mmol/L (N) 23 - 29 mmol/L [facility] (69774) Creatinine 1.44 mg/dL (H) [facility] [Mass/Vol] [facility] (02360) Eosinophils 0.218 10*3/uL (N) 0.05 - 0.5 [facility] (Bld) [#/Vol] 10*3/uL [facility] (77164) Eosinophils/100 3.4 % (N) 1 - 4 % [facility] WBC (Bld) [facility] (73204) Erythrocyte 12.7 % (N) 11.6 - 14.6 % [facility] distribution [facility] width (RBC) [facility] [Ratio] (28836) GFR/1.73 sq M 57 (L) 90 - 120 [facility] predicted among mL/min/{1.73_m2} mL/min/{1.73_m2} [facility] f [facility] blacks MDRD [facility] (S/P/Bld) [Vol (16544) rate/Area] GFR/1.73 sq 49 (L) 90 - 120 [facility] M.predicted MDRD mL/min/{1.73_m2} mL/min/{1.73_m2} [facility] (S/P/Bld) [Vol [facility] rate/Area] (62757) Globulin (S) 2.5 g/dL (N) 2 - 3.5 g/dL [facility] [Mass/Vol] [facility] (49462) Glucose 322 mg/dL (H) 60 - 125 mg/dL [facility] [Mass/Vol] [facility] (18859) HbA1c (Bld) 13.3 % (no code) 0 - 5.7 % [facility] [Mass fraction] [facility] (47813) Hematocrit (Bld) 42.1 % (N) 36.1 - 50.3 % [facility] [Volume Center [facility]] [facility] (52816) Hemoglobin (Bld) 14.0 g/dL (N) 12.1 - 17.2 g/dL [facility] [Mass/Vol] [facility] (12603) Lymphocytes 1.35 10*3/uL (N) 0.9 - 2.9 [facility] (Bld) [#/Vol] 10*3/uL [facility] (81481) Lymphocytes/100 21.1 % (N) 20 - 40 % [facility] WBC (Bld) [facility] (26208) MCH (RBC) 28.5 pg (N) 27 - 31 pg [facility] [Entitic mass[facility] (01179) MCHC (RBC) 33.3 g/dL (N) 32 - 36 g/dL [facility] [Mass/Vol] [facility] (30343) MCV (RBC) 85.6 fL (N) 80 - 100 fL [facility] [[facility] vol[facility] (48638) Monocytes (Bld) 0.602 10*3/uL (N) 0.3 - 0.9 [facility] [#/Vol] 10*3/uL [facility] (29365) Monocytes/100 9.4 % (N) 2 - 8 % [facility] WBC (Bld) [facility] (70020) Neutrophils 4.173 10*3/uL (N) 1.7 - 7 10*3/uL [facility] Health (Bld) [#/Vol] [facility] (38062) Neutrophils/100 65.2 % (N) 40 - 60 % [facility] WBC (Bld) [facility] (23471) Platelet mean 10.9 fL (N) 7.2 - 11.7 fL [facility] volume (Bld) [facility] [Entitic vol] [facility] (97474) Platelets (Bld) 229 10*3/uL (N) 150 - 450 [facility] [#/Vol] 10*3/uL [facility] (52333) Potassium 4.6 mmol/L (N) 3.7 - 5.2 mmol/L [facility] [Moles/Vol] [facility] (11671) Protein 6.5 g/dL (N) 6.4 - 8.3 g/dL [facility] [Mass/Vol] [facility] (24529) RBC (Bld) 4.92 10*6/uL (N) 4.2 - 6.1 [facility] lth [#/Vol] 10*6/uL [facility] (40014) Sodium 134 mmol/L (L) 135 - 145 mmol/L [facility] [Moles/Vol] [facility] (74780) Triglyceride 283 mg/dL (H) 0 - 150 mg/dL [facility] [Mass/Vol] [facility] (25911) TSH Qn 1.57 m[IU]/L (N) 0.4 - 4 m[IU]/L [facility] (71987) Urea nitrogen 18 mg/dL (N) 7 - 20 mg/dL [facility] [Mass/Vol] [facility] (83737) Urea 13 mg/mg (N) 6 - 22 mg/mg [facility] nitrogen/Creatin [facility] [Mass ratio] [facility] (00281) WBC (Bld) 6.4 10*3/uL (N) 3.5 - 10.5 [facility] [#/Vol] 10*3/uL [facility] (50804) not yet categorized on 2019-04-05 Exp date 10/2020 (no code) [facility] (60919) Lot 11.4~[id number] (no code) [facility] (77663) other on 2018-11-14 Exp date 05/2020 (no code) [facility] (39860) Lot 11.8~0941 (no code) [facility] (58060) Lot 14~11.8~0941 (no code) [facility] (46285) metabolic panel on 2018-11-14 HbA1c (Bld) 14 % (no code) 0 - 5.7 % [facility] [Mass fraction] [facility] (70666) urinalysis on 2018-04-04 Appearance Nom CLEAR (N) no information (U) Bacteria SEE NOTE (no code) no information identified Cx Nom (U) Bilirubin Ql (U) Negative (N) no informatio n Color Nom (U) DARK YELLOW (N) no information Creatinine mass 229 mg/dL (N) no information conc (U) Glucose Ql (U) Negative (N) no information Hemoglobin Test Negative (N) no information strip Ql (U) Ketones Ql (U) Negative (N) no information Leukocyte Negative (N) no information esterase Test strip Ql (U) Nitrite Test Negative (N) no information strip Ql (U) pH Test strip [pH] (N) 4.6 - 8 [pH] no informa tion (U) Protein mass 19 mg/dL (N) 0 - 20 mg/dL no informat ion conc (U) Protein Test Negative (N) no information strip Ql (U) Specific gravity 1.025 (N) no informatio n Relative Density (U) other on 2018-04-04 BACTERIA NONE SEEN (N) no information Calcidiol mass 23 ng/mL (L) 20 - 50 ng/mL no infor mation conc HYALINE CAST NONE SEEN (N) no information PROTEIN/CREATINI 83 (N) no informatio n NE RATIO RBC NONE SEEN (N) no information SQUAMOUS NONE SEEN (N) no information EPITHELIAL CELLS WBC NONE SEEN (N) no information metabolic panel on 2018-04-04 Albumin mass 4.2 g/dL (N) 3.4 - 5.4 g/dL no inform ation conc Calcium mass 9.2 mg/dL (N) 8.5 - 10.2 mg/dL no info rmation conc Chloride molar 107 mmol/L (N) 95 - 106 mmol/L no inf ormation conc CO2 molar conc 25 mmol/L (N) 23 - 29 mmol/L no info rmation Creatinine mass 1.54 mg/dL (H) no information conc GFR/1.73 sq M 53 (L) 90 - 120 no informati on predicted among mL/min/{1.73_m2} mL/min/{1.73_m2} blacks MDRD vol rate/area (S/P/Bld) GFR/1.73 sq 46 (L) 90 - 120 no information M.predicted MDRD mL/min/{1.73_m2} mL/min/{1.73_m2} vol rate/area Glucose mass 76 mg/dL (N) 60 - 125 mg/dL no inform ation conc Hemoglobin 9.1 (H) no information A1c/Hemoglobin.t otal mass fraction (Bld) Phosphate mass 4.9 mg/dL (H) 2.4 - 4.1 mg/dL no inf ormation conc Potassium molar 4.9 mmol/L (N) 3.7 - 5.2 mmol/L no i nformation conc Sodium molar 140 mmol/L (N) 135 - 145 mmol/L no info rmation conc Urea nitrogen 29 mg/dL (H) 7 - 20 mg/dL no informa tion mass conc Urea 19 mg/mg (N) 6 - 22 mg/mg no informati on nitrogen/Creatin ine mass ratio hematology on 2018-04-04 Basophils Auto 0.095 10*3/uL (N) 0 - 0.3 10*3/uL [facility] #/vol (Bld) [facility] (04443) Basophils/100 0.9 % (N) 0.5 - 1 % [facility] WBC Auto (Bld) [facility] (52577) Eosinophils Auto 0.179 10*3/uL (N) 0.05 - 0.5 [facility] #/vol (Bld) 10*3/uL [facility] (84331) Eosinophils/100 1.7 % (N) 1 - 4 % [facility] WBC Auto (Bld) [facility] (60819) Erythrocyte 14.4 % (N) 11.6 - 14.6 % Pending Sale To [facility] ealth distribution [facility] Auto Ratio [facility] (RBC) (45021) Hematocrit Auto 38.1 % (L) 36.1 - 50.3 % [facility] Volume Fraction [facility] (d) [facility] (54794) Hemoglobin mass 12.7 g/dL (L) 12.1 - 17.2 g/dL [facility] conc (Bld) [facility] (69738) Lymphocytes Auto 3.329 10*3/uL (N) 0.9 - 2.9 [facility] #/vol (Bld) 10*3/uL [facility] (63926) Lymphocytes/100 31.7 % (N) 20 - 40 % [facility] WBC Auto (Bld) [facility] (67985) MCH Auto Entitic 28.6 pg (N) 27 - 31 pg [facility] mass (RBC) [facility] (65705) MCHC Auto mass 33.3 g/dL (N) 32 - 36 g/dL [facility] conc (RBC) [facility] (48834) MCV Auto Entitic 85.8 fL (N) 80 - 100 fL [facility] volume (RBC[facility] (73608) Monocytes Auto 0.683 10*3/uL (N) 0.3 - 0.9 [facility] #/vol (Bld) 10*3/uL [facility] (40435) Monocytes/100 6.5 % (N) 2 - 8 % [facility] WBC Auto (Bld) [facility] (27990) Neutrophils Auto 6.216 10*3/uL (N) 1.7 - 7 10*3/uL [facility] #/vol (Bld) [facility] (86748) Neutrophils/100 59.2 % (N) 40 - 60 % [facility] WBC Auto (Bld) [facility] (62195) Platelet mean 10.1 fL (N) 7.2 - 11.7 fL [facility] volume Auto [facility] Entitic [facility] (Bld) (73147) Platelets Auto 263 10*3/uL (N) 150 - 450 [facility] #/vol (Bld) 10*3/uL [facility] (85090) RBC Auto #/vol 4.44 10*6/uL (N) 4.2 - 6.1 [facility] (Bld) 10*6/uL [facility] (59483) WBC Auto #/vol 10.5 10*3/uL (N) 3.5 - 10.5 [facility] (Bld) 10*3/uL [facility] (15231) thyroid on 2018-02-14 Thyrotropin Qn 0.79 m[IU]/L (N) 0.4 - 4 m[IU]/L Not A vailable (25773) other on 2018-02-14 Albumin/Globulin 1.4 (N) Not Available mass ratio (44623) Calcidiol mass 22 ng/mL (L) 20 - 50 ng/mL Not Avai lable conc (23618) Cobalamin 410 pg/mL (N) 200 - 900 pg/mL Not Avail able (Vitamin B12) (98748) mass conc Exp date 10/2019 (no code) Not Available (18040) Globulin 2.9 (N) Not Available Calculated mass (60387) conc (S) Lot 9.9~10.0~0856 (no code) Not Available (08804) metabolic panel on 2018-02-14 Albumin mass 4.2 g/dL (N) 3.4 - 5.4 g/dL Not Avail able conc (26824) ALP enzyme 72 U/L (N) 44 - 147 U/L Not Availabl e act/vol (06262) ALT enzyme 30 U/L (N) 4 - 40 U/L Not Available act/vol (32331) AST enzyme 24 U/L (N) 10 - 34 U/L Not Available act/vol (53423) Bilirubin mass 1.0 mg/dL (N) 0.1 - 1.2 mg/dL Not Av ailable conc (79545) Calcium mass 9.4 mg/dL (N) 8.5 - 10.2 mg/dL Not Vika ilable conc (36284) Chloride molar 102 mmol/L (N) 95 - 106 mmol/L Not Av ailable conc (73308) CO2 molar conc 16 mmol/L (L) 23 - 29 mmol/L Not Vika ilable (69464) Creatinine mass 1.62 mg/dL (H) Not Available conc (33878) GFR/1.73 sq M 50 (L) 90 - 120 Not Availabl e predicted among mL/min/{1.73_m2} mL/min/{1.73_m2} (94828) blacks MDRD vol rate/area (S/P/Bld) GFR/1.73 sq 43 (L) 90 - 120 Not Available M.predicted MDRD mL/min/{1.73_m2} mL/min/{1.73_m2} (02631) vol rate/area Glucose mass 151 mg/dL (H) 60 - 125 mg/dL Not Avail able conc (03926) Potassium molar 4.6 mmol/L (N) 3.7 - 5.2 mmol/L Not Available conc (63701) Protein mass 7.1 g/dL (N) 6.4 - 8.3 g/dL Not Avail able conc (71853) Sodium molar 138 mmol/L (N) 135 - 145 mmol/L Not Vika ilable conc (80555) Urea nitrogen 27 mg/dL (H) 7 - 20 mg/dL Not Availa ble mass conc (78468) Urea 17 mg/mg (N) 6 - 22 mg/mg Not Availabl e nitrogen/Creatin (39311) ine mass ratio hematology on 2018-02-14 Basophils Auto 0.084 10*3/uL (N) 0 - 0.3 10*3/uL Not Available #/vol (Bld) (56638) Basophils/100 0.7 % (N) 0.5 - 1 % Not Availabl e WBC Auto (Bld) (65691) Eosinophils Auto 0.144 10*3/uL (N) 0.05 - 0.5 Not Vika ilable #/vol (Bld) 10*3/uL (15107) Eosinophils/100 1.2 % (N) 1 - 4 % Not Availa ble WBC Auto (Bld) (08240) Erythrocyte 14.4 % (N) 11.6 - 14.6 % Not Availab le distribution (86538) width Auto Ratio (RBC) Hematocrit Auto 43.1 % (N) 36.1 - 50.3 % Not Vika ilable Volume Fraction (97984) (Bld) Hemoglobin mass 14.4 g/dL (N) 12.1 - 17.2 g/dL Not Available conc (Bld) (49805) Lymphocytes Auto 2.184 10*3/uL (N) 0.9 - 2.9 Not Vika ilable #/vol (Bld) 10*3/uL (23329) Lymphocytes/100 18.2 % (N) 20 - 40 % Not Availa ble WBC Auto (Bld) (87064) MCH Auto Entitic 28.0 pg (N) 27 - 31 pg Not Avail able mass (RBC) (77141) MCHC Auto mass 33.4 g/dL (N) 32 - 36 g/dL Not Avail able conc (RBC) (76134) MCV Auto Entitic 83.7 fL (N) 80 - 100 fL Not Avai lable volume (RBC) (58949) Monocytes Auto 1.032 10*3/uL (H) 0.3 - 0.9 Not Avail able #/vol (Bld) 10*3/uL (18404) Monocytes/100 8.6 % (N) 2 - 8 % Not Availabl e WBC Auto (Bld) (24644) Neutrophils Auto 8.556 10*3/uL (H) 1.7 - 7 10*3/uL No t Available #/vol (Bld) (01311) Neutrophils/100 71.3 % (N) 40 - 60 % Not Availa ble WBC Auto (Bld) (92581) Platelet mean 11.1 fL (N) 7.2 - 11.7 fL Not Avail able volume Auto (87029) Entitic volume (Bld) Platelets Auto 210 10*3/uL (N) 150 - 450 Not Availab le #/vol (Bld) 10*3/uL (74100) RBC Auto #/vol 5.15 10*6/uL (N) 4.2 - 6.1 Not Availa ble (Bld) 10*6/uL (93429) WBC Auto #/vol 12.0 10*3/uL (H) 3.5 - 10.5 Not Availa ble (Bld) 10*3/uL (86175) urinalysis on 2018-01-14 Appearance Nom CLEAR (N) [facility] ([facility]) [facility] (54090) Bilirubin Ql (U) Negative (N) [facility] (76494) Color Nom (U) YELLOW (N) [facility] (21587) Glucose Ql (U) 3+ (A) [facility] (08216) Hemoglobin Test Negative (N) [facility] strip Ql (U) [facility] (80887) Ketones Ql (U) Negative (N) [facility] (26112) Leukocyte Negative (N) [facility] esterase Test [facility] Ql (U) [facility] (56742) Nitrite Test Negative (N) [facility] strip Ql (U) [facility] (28531) pH Test strip [pH] (N) 4.6 - 8 [pH] [facility] (U) [facility] (37510) Protein Test TRACE (A) [facility] strip Ql (U) [facility] (66894) Specific gravity 1.023 (N) [facility] lt Relative Density [facility] (77060[facility] other on 2018-01-14 BACTERIA NONE SEEN (N) [facility] (29397) HYALINE CAST NONE SEEN (N) [facility] (64915) RBC NONE SEEN (N) [facility] (97667) SQUAMOUS NONE SEEN (N) [facility] EPITHELIAL CELLS [facility] (74048) WBC NONE SEEN (N) [facility] (76071) urinalysis on 2017-11-08 Amphetamines Ql Negative (no code) [facility] (U) [facility] (81519) Benzodiazepines Negative (no code) [facility] Screen Ql (U) [facility] (77134) Benzoylecgonine Negative (no code) [facility] Ql (U) [facility] (98339) Creatinine mass 127.8 mg/dL (no code) [facility] conc (U) [facility] (42495) Creatinine mass 0 mg/dL (no code) [facility] conc (U) [facility] (34356) Opiates Ql (U) Positive (no code) [facility] (78513) Specific gravity no information (no code) [facility] lt Relative Density [facility] ([facility] (85235) Tetrahydrocannab Negative (no code) [facility] inol Ql (U) [facility] (76297) other on 2017-11-08 6 Acetylmorphine no information (no code) [facility] (91488) Alphahydroxyalpr no information (no code) [facility] azolam [facility] (11384) Alphahydroxymida no information (no code) [facility] lt zolam [facility] (66144) Alphahydroxytria no information (no code) [facility] (57302) Aminoclonazepam no information (no code) [facility] (27028) Amphetamine no information (no code) [facility] (16091) Buprenorphine no information (no code) [facility] (85546) Codeine 234 (no code) [facility] (31652) Ethyl no information (no code) [facility] (ETG) [facility] (96261) Ethyl Sulfate no information (no code) [facility] (ETS) [facility] (87846) Hydrocodone Negative (no code) [facility] (68642) Hydromorphone Negative (no code) [facility] (43393) Hydroxyethylflur no information (no code) [facility] azepam [facility] (68286) Lorazepam no information (no code) [facility] (19853) Marijuana no information (no code) [facility] Metabolite [facility] (91602) MDA no information (no code) [facility] (16267) MDMA no information (no code) [facility] (72293) Methamphetamine no information (no code) [facility] (78265) Morphine 282 (no code) [facility] (24920) Norbuprenorphine no information (no code) [facility] (66111) Nordiazepam no information (no code) [facility] (30854) Norhydrocodone Negative (no code) [facility] (04336) Noroxycodone 1577 (no code) [facility] (37722) Oxazepam no information (no code) [facility] (74309) Oxycodone 773 (no code) [facility] (63050) Oxymorphone 2052 (no code) [facility] (73439) Temazepam no information (no code) [facility] (26757) 6 Acetylmorphine Negative (no code) [facility] (89374) Abnormal no information (no code) [facility] Specimen [facility] TestReplaced By [facility] (38878) Alcohol Negative (no code) [facility] Metabolites [facility] (42939) Amphetamine Negative (no code) [facility] (47214) Buprenorphine Negative (no code) [facility] (26597) COMMENT no information (no code) [facility] (60935) Exp date 06/2019 (no code) [facility] (76275) Lot 10.0~11.5~0812 (no code) [facility] (93370) MDMA Negative (no code) [facility] (42596) medMATCH 6 no information (no code) [facility] Acetylmorph [facility] (47753) medMATCH 6 CONSISTENT (no code) [facility] Acetylmorphine [facility] (91776) medMATCH Alcohol CONSISTENT (no code) [facility] Metab [facility] (53506) medMATCH no information (no code) [facility] Aminoclonazepam [facility] (27694) medMATCH no information (no code) [facility] Amphetamine [facility] (55663) medMATCH CONSISTENT (no code) [facility] Amphetamine [facility] (91945) medMATCH CONSISTENT (no code) [facility] Amphetamines [facility] (74310) medMATCH aOH no information (no code) [facility] alprazol[facility] (23662) medMATCH aOH no information (no code) [facility] (45951) medMATCH aOH no information (no code) [facility] tri[facility] (92216) medMATCH CONSISTENT (no code) [facility] Benzod[facility] (82242) medMATCH no information (no code) [facility] Benzoyle[facility]gon[facility] (43256) medMATCH CONSISTENT (no code[facility] B[facility] ([id number]) medMATCH no information (no code) [facility] (31779) medMATCH Cocaine CONSISTENT (no code) [facility] Metab [facility] (77188) medMATCH Codeine CONSISTENT (no code) [facility] ([id number]) medMATCH ETG no information (no code) [facility] (29826) medMATCH ETS no information (no code) [facility] (04442) medMATCH CONSISTENT (no code) [facility] Hydrocodone [facility] (77481) medMATCH CONSISTENT (no code) [facility] Hydromorphone [facility] (12387) medMATCH no information (no code) [facility] Lorazepam [facility] (63768) medMATCH no information (no code) [facility] Marijuana Metab [facility] (76746) medMATCH CONSISTENT (no code) [facility] Marijuana [facility]ab [facility] (98255) medMATCH MDA no information (no code) [facility] (32430) medMATCH MDMA no information (no code) [facility] (12609) medMATCH MDMA CONSISTENT (no code) [facility] (49484) medMATCH no information (no code) [facility] Methamphetamine [facility] (22545) medMATCH CONSISTENT (no code) [facility] Methamphetamine [facility] (81386) medMATCH CONSISTENT (no code) [facility] Morphine [facility] (49878) medMATCH no information (no code) [facility] Norbupren[facility] (80769) medMATCH no information (no code) [facility] Nordiazepam [facility] (90995) medMATCH CONSISTENT (no code) [facility] Norhydrocodone [facility] (48717) medMATCH INCONSISTENT (no code) [facility] Noroxycodone [facility] (12217) medMATCH [place] no information (no code) [facility] flurazepam [facility] (74998) medMATCH Opiates no information (no code) [facility] (93142) medMATCH no information (no code) [facility] Oxazepam [facility] (01911) medMATCH no information (no code) [facility] Oxycodone [facility] (43803) medMATCH INCONSISTENT (no code) [facility] (62699) medMATCH INCONSISTENT (no code) [facility] Oxym[facility]one [facility] (43659) medMATCH no information (no code) [facility] Temazepam [facility] (02710) Methamphetamine Negative (no code) [facility] (82278) Oxidant Negative (no code) [facility] (22949) Oxycodone Positive (no code) [facility] (69028) Prescribed Drug Lyrica(TM) (no code) [facility] 1 [facility] (21440) Prescribed Drug Aceta w/Codeine (no code) [facility] 2 [facility] (84541) Prescribed Drug no information (no code) [facility] 3 [facility] ([id number]) Prescribed Drug no information (no code) [facility] th 4 [facility] (66517) Prescribed Drug no information (no code) [facility] 5 [facility] (17290) hematology on 2017-11-08 pH (Bld) 6.80 [pH] (no code) 7.38 - 7.42 [pH] [facility] (86354) pH (Bld) 0 [pH] (no code) 7.38 - 7.42 [pH] [facility] (56502) other on 2017-04-06 Albumin BCG dye 3.8 (no code) 04-06-2017 Not Availa ble [Mass/Vol] 11:54-0400 (44599) Erythrocyte 13.6 % (no code) 11.6 - 14.6 % 04-06-2017 Not Av ailable distribution 11:54-0400 (47422) width (RBC) [Ratio] GFR/1.73 sq 48 (L) 90 - 120 04-06-2017 Not Availa ble M.predicted MDRD mL/min/{1.73_m2} mL/min/{1.73_m2} 11:54-0400 (30348) (S/P/Bld) [Vol rate/Area] Globulin (S) 3.0 g/dL (no code) 2 - 3.5 g/dL 04-06-2017 Not Av ailable [Mass/Vol] 11:54-0400 (98486) HCO3 (P) 22 (no code) 04-06-2017 Not Available [Moles/Vol] 11:54-0400 (48067) INR Coag 1.0 (no code) 04-06-2017 Not Available (Platelet poor 11:54-0400 (10133) plasma or blood) [Relative time] MCHC (RBC) 33.2 g/dL (no code) 32 - 36 g/dL 04-06-2017 Not Avai lable [Mass/Vol] 11:54-0400 (87976) Osmolality Calc 303 (H) 04-06-2017 Not Availa ble [Osmolality] 11:54-0400 (30355) Platelet mean 10.8 fL (H) 7.2 - 11.7 fL 04-06-2017 Not Available volume (Bld) 11:540400 (35620) [Entitic vol] metabolic panel on 2017-04-06 ALP [Catalytic 77 U/L (no code) 44 - 147 U/L 04-06-2017 Not Available activity/Vol] 11:54 (66019) ALT [Catalytic 40 U/L (no code) 4 - 40 U/L 04-06-2017 Not Av ailable activity/Vol] 11:54 (11259) Anion gap 17 mmol/L (H) 3 - 11 mmol/L 04-06-2017 Not Avai lable [Moles/Vol] 11:54 (47306) AST [Catalytic 38 U/L (no code) 10 - 34 U/L 04-06-2017 Not A vailable activity/Vol] 11: (72382) Bilirubin 0.5 mg/dL (no code) 0.1 - 1.2 mg/dL 04-06-2017 Not Av ailable [Mass/Vol] 11: (49918) Calcium 9.1 mg/dL (no code) 8.5 - 10.2 mg/dL 04-06-2017 Not A vailable [Mass/Vol] 11: (66444) Chloride 106 mmol/L (no code) 95 - 106 mmol/L 04-06-2017 Not A vailable [Moles/Vol] 11: (74575) Creatinine 1.46 mg/dL (no code) 04-06-2017 Not Available [Mass/Vol] 11: (46317) Glucose 234 mg/dL (H) 60 - 125 mg/dL 04-06-2017 Not Vika ilable [Mass/Vol] 11:54 (50630) Potassium 4.8 mmol/L (no code) 3.7 - 5.2 mmol/L 04-06-2017 Not Available [Moles/Vol] 11:54 (68183) Protein 6.8 g/dL (no code) 6.4 - 8.3 g/dL 04-06-2017 Not Vika ilable [Mass/Vol] 11:54 (90097) Sodium 140 mmol/L (no code) 135 - 145 mmol/L 04-06-2017 Not Available [Moles/Vol] 11:54-0400 (80658) Urea nitrogen 33 mg/dL (H) 7 - 20 mg/dL 04-06-2017 Not A vailable [Mass/Vol] 11:54-0400 (32663) hematology on 2017-04-06 Basophils (Bld) 0.0 10*3/uL (no code) 0 - 0.3 10*3/uL 04-06-2017 Not Available [#/Vol] 11:54-0400 (48483) Basophils/100 0.50 % (no code) 0.5 - 1 % 04-06-2017 Not Avai lable WBC (Bld) 11:540400 (78611) Eosinophils 0.1 10*3/uL (no code) 0.05 - 0.5 04-06-2017 Not Vika ilable (Bld) [#/Vol] 10*3/uL 11:540400 (81802) Eosinophils/100 2.2 % (no code) 1 - 4 % 04-06-2017 Not Av ailable WBC (Bld) 11:540400 (22491) Hematocrit (Bld) 41.0 % (L) 36.1 - 50.3 % 04-06-2017 N ot Available [Volume 11:540400 (74411) fraction] Hemoglobin (Bld) 13.6 g/dL (L) 12.1 - 17.2 g/dL 04-06-2017 Not Available [Mass/Vol] 11:54-0400 (94950) Lymphocytes 1.91 10*3/uL (no code) 0.9 - 2.9 04-06-2017 Not Vika ilable (Bld) [#/Vol] 10*3/uL 11:54-0400 (95293) Lymphocytes/100 32.0 % (no code) 20 - 40 % 04-06-2017 Not Av ailable WBC (Bld) 11:540400 (08760) MCH (RBC) 26.8 pg (L) 27 - 31 pg 04-06-2017 Not Availab le [Entitic mass] 11:540400 (63179) MCV (RBC) 80.9 fL (no code) 80 - 100 fL 04-06-2017 Not Availa ble [Entitic vol] 11:540400 (78855) Monocytes (Bld) 0.6 10*3/uL (no code) 0.3 - 0.9 04-06-2017 Not Available [#/Vol] 10*3/uL 11:54-0400 (95094) Monocytes/100 10.2 % (no code) 2 - 8 % 04-06-2017 Not Avai lable WBC (Bld) 11:540400 (42721) Neutrophils 3.29 10*3/uL (no code) 1.7 - 7 10*3/uL 04-06-2017 N ot Available (Bld) [#/Vol] 11:540400 (10111) Neutrophils/100 55.1 % (no code) 40 - 60 % 04-06-2017 Not Av ailable WBC (Bld) 11:540400 (83850) Platelets (Bld) 208 10*3/uL (no code) 150 - 450 04-06-2017 Not Available [#/Vol] 10*3/uL 11:540400 (82643) PT Coag (PPP) 12.1 (no code) 04-06-2017 Not Availabl e [Time] 11:0400 (10503) RBC (Bld) 5.07 10*6/uL (no code) 4.2 - 6.1 04-06-2017 Not Avail able [#/Vol] 10*6/uL 11:540400 (07453) WBC (Bld) 5.97 10*3/uL (no code) 3.5 - 10.5 04-06-2017 Not Avai lable [#/Vol] 10*3/uL 11:540400 (08582) Vital Signs Vital Sign Value Interpretation Reference Date Time Care Prov ider Facility (Normalized) (Normalized) Range BMI (Body Mass 42.83 kg/m2 (no code) 15 - 25 kg/m2 07-08-2018 W GERARDO [facility] Community Index) 11:00-0500 34981 [facility] ([id number]) BMI (Body Mass 42.28 kg/m2 (no code) 15 - 25 kg/m2 06-08-2018 [address] [facility] Community Index) 11:00-0400 98550 [facility] (92327) BMI (Body Mass 43.22 kg/m2 (no code) 15 - 25 kg/m2 05-11-2018 W ILLIAM [facility] Community Index) 11:40-[address] [place] [address] (31421) BMI (Body Mass 43.77 kg/m2 (no code) 15 - 25 kg/m2 04-28-2018 W ILLIAM [facility] Community Index) 15:00-[address] [place] [address] (73477) BMI (Body Mass 42.94 kg/m2 (no code) 15 - 25 kg/m2 04-13-2018 W ILLIAM [facility] Community Index) 16:[address] [place] [address] (95977) BMI (Body Mass 42.19 kg/m2 (no code) 15 - 25 kg/m2 03-14-2018 W ILLIAM [facility] Community Index) 15:20-[address] [place] [address] (54294) BMI (Body Mass 41.78 kg/m2 (no code) 15 - 25 kg/m2 02-14-2018 W ILLIAM [facility] Community Index) 15:20-[address] [place] [address] (59923) BMI (Body Mass 42.72 kg/m2 (no code) 15 - 25 kg/m2 02-03-2018 W ILLIAM [facility] Community Index) 14:[address] [place] [address] (51068) BMI (Body Mass 42.93 kg/m2 (no code) 15 - 25 kg/m2 01-31-2018 W ILLIA [facility] Community Index) 12:[address] [place] [address] (17971) BMI (Body Mass 42.28 kg/m2 (no code) 15 - 25 kg/m2 01-26-2018 EVELYN FLAVIA RAHMAN Community Index) 13:00-040 DAMIÁN [address] [place] [address] ([id number]) Body height 170.18 cm (no code) cm 05-23-2014 NISHI PALENCIA [facility] 11:050400 [address] [place] [address] (00015) Body height 170.18 cm (no code) cm 04-23-2014 NISHI [facility] 10:[address] [place] [address]s (79669) Body height 170.18 cm (no code) cm 04-16-2014 ZULMA [facility] 14:23-[id number] [place] [address] (33790) Body height 170.18 cm (no code) cm 11-24-2013 [facility] 13:09-0400 20636 [facility] (31081) Body 97.5 [degF] (no code) 97.8 - 99.0 07-08-2018 [facility] Community Temperature [degF] 11:00-0500 19572 [facility] (23393) Body 97.9 [degF] (no code) 97.8 - 99.0 06-08-2018 NISHI [facility] Community Temperature [degF] 11:00-0400 21471 [facility] (14438) Body 97.7 [degF] (no code) 97.8 - 99.0 05-11-2018 [facility] Community Temperature [degF] 11:40-0400 07519 [facility] (77547) Body 97.9 [degF] (no code) 97.8 - 99.0 04-28-2018 [facility] Community Temperature [degF] 15:00-0400 99424 [facility] (39748) Body 97.7 [degF] (no code) 97.8 - 99.0 04-20-2018 [facility] Community Temperature [degF] 12:00-0400 64553 [facility] (01883) Body 97.7 [degF] (no code) 97.8 - 99.0 04-13-2018 [facility] Community Temperature [degF] 16:00-0400 28766 [facility] (72141) Body 98.3 [degF] (no code) 97.8 - 99.0 03-14-2018 NISHI [facility] Community Temperature [degF] 15:20-0400 62810 [facility] (80579) Body 98.1 [degF] (no code) 97.8 - 99.0 02-14-2018 [facility] Community Temperature [degF] 15:20-0400 81584 [facility] (25694) Body 98.8 [degF] (no code) 97.8 - 99.0 02-03-2018 [facility] Community Temperature [degF] 14:00-0400 36395 [facility] (42619) Body 99.1 [degF] (no code) 97.8 - 99.0 01-26-2018 [facility] Temperature [degF] 13:00-0400 CARMEN 29138 [facility] (46484) Body 97.8 [degF] (no code) 97.8 - 99.0 10-19-2014 [facility] Community Temperature [degF] 12:49-0400 87546 [facility] (54855) Body 96.9 [degF] (no code) 97.8 - 99.0 08-15-2014 [facility] Community Temperature [degF] 11:23-0500 20792 [facility] (41707) Body 97.1 [degF] (no code) 97.8 - 99.0 07-25-2014 [facility] Community Temperature [degF] 11:25-0500 16110 [facility] (01465) Body 97.3 [degF] (no code) 97.8 - 99.0 05-23-2014 [facility] Community temperature [degF] 11:05-0400 77859 [facility] (00770) Body 99.3 [degF] (no code) 97.8 - 99.0 04-23-2014 [facility] Community temperature [degF] 10:17-0400 15178 [facility] (45669) Body 97.6 [degF] (no code) 97.8 - 99.0 04-16-2014 [facility] temperature [degF] 14:23-0400 WINAMAC 35003 [facility] (29647) Body 98 [degF] (no code) 97.8 - 99.0 02-21-2014 [facility] Temperature [degF] 12:53-[address] [place] [address] (13727) Body 98.1 [degF] (no code) 97.8 - 99.0 11-24-2013 [facility] temperature [degF] 13:090400 [address] [place] [address] (15261) Body weight 124.79 kg (no code) kg 10-19-2014 [facility] 12:49-[address] [place] [address] (49485) Body weight 125.28 kg (no code) kg 08-15-2014 [facility] 11:230500 [address] [place] [address] (84002) Body weight 121.84 kg (no code) kg 07-25-2014 [facility] 11:250500 [address] [place] [address] (01348) Body weight 122.11 kg (no code) kg 05-23-2014 [facility] 11:050400 [address] [place] [address] (07498) Body weight 124.79 kg (no code) kg 04-23-2014 [facility] 10:170400 [address] [place] [address] (43228) Body weight 125.69 kg (no code) kg 04-16-2014 ZULMA [facility] 14:230400 [address] (34273) Body weight 125.19 kg (no code) kg 02-21-2014 [facility] 12:530400 [address] [place] [address] (75618) Body weight 126.37 kg (no code) kg 11-24-2013 [facility] 13:090400 [address] [place] [address] (73974) Height 170.18 cm (no code) cm 07-08-2018 NISHI [facility] 11:000500 [address] [place] [address] (27505) Height 170.18 cm (no code) cm 06-08-2018 NISHI [facility] 11:000400 [address] [place] [address] (58058) Height 170.18 cm (no code) cm 05-11-2018 NISHI [facility] 11:40-[address] [place] [address] (62266) Height 170.18 cm (no code) cm 04-28-2018 NISHI [facility] 15:00-[address] [place] [address] (44433) Height 170.18 cm (no code) cm 04-20-2018 BLAS [facility] 12:00-[address] [place] [address] (71994) Height 170.18 cm (no code) cm 04-13-2018 NISHI [facility] 16:00-[address] [place] [address] (45315) Height 170.18 cm (no code) cm 03-14-2018 NISHI [facility] 15:20-[address] [place] [address] (30994) Height 170.18 cm (no code) cm 02-14-2018 NISHI [facility] 15:20-[address] [place] [address] (21452) Height 170.18 cm (no code) cm 02-03-2018 NISHI [facility] 14:00-[address] [place] [address] (02232) Height 170.18 cm (no code) cm 01-31-2018 NISHI [facility] 12:00-[address] [place] [address] (20553) Height 170.18 cm (no code) cm 01-28-2018 NISHI [facility] 12:40-[address] [place] [address] (31751) Height 170.18 cm (no code) cm 01-26-2018 ADDI conley 13:00-[address] [place] [address] ([id number]) Height 170.18 cm (no code) cm 10-19-2014 NISHI [facility] 12:49-[address] [place] [address] (55061) Height 170.18 cm (no code) cm 08-15-2014 NISHI [facility] 11:23-[address] [place] [address] (99814) Height 170.18 cm (no code) cm 07-25-2014 NISHI [facility] 11:25-[id number] [place] [address] (58513) Height 170.18 cm (no code) cm 02-21-2014 [facility] 12:53-[address] [place] [address] (30061) Pulse Oximetry 98 % (no code) 95 - 100 % 06-08-2018 [facility] 11:00-[address] [place] [address] (25367) Pulse Oximetry 92 % (no code) 95 - 100 % 05-11-2018 [facility] 11:40-[address] [place] [address] (38843) Pulse Oximetry 94 % (no code) 95 - 100 % 04-28-2018 [facility] 15:00-[address] [place] [address] (81039) Pulse Oximetry 97 % (no code) 95 - 100 % 04-20-2018 [facility] 12:00-[address] [place] [address] (54849) Pulse Oximetry 0 % (no code) 95 - 100 % 04-13-2018 [facility] 16:00-[address] [place] [address] (59402) Pulse Oximetry 0 % (no code) 95 - 100 % 02-14-2018 [facility] 15:20-[address] [place] [address] (78271) Pulse Oximetry 96 % (no code) 95 - 100 % 02-03-2018 [facility] 14:00-[address] [place] [address] (27510) Pulse Oximetry 98 % (no code) 95 - 100 % 01-31-2018 [facility] 12:00-[address] [place] [address] (47779) Pulse Oximetry 95 % (no code) 95 - 100 % 01-26-2018 [facility] 13:00-[address] (48337) Weight 124.06 kg (no code) kg 07-08-2018 NISHI PALENCIA [facility] 11:00-[address] [place] [address] (63752) Weight 122.47 kg (no code) kg 06-08-2018 NISHI PALENCIA [facility] 11:00-[id number] [place] [address] (58767) Weight 125.19 kg (no code) kg 05-11-2018 NISHI PALENCIA [facility] 11:40-[address] [place] [address] (61195) Weight 126.78 kg (no code) kg 04-28-2018 NISHI [facility]drop [facility] 15:00-[address] [place] [address] (47278) Weight 124.38 kg (no code) kg 04-13-2018 NISHI SLIME [facility] 16:00-[address] [place] [address] (49438) Weight 122.2 kg (no code) kg 03-14-2018 NISHI PALENCIA [facility] 15:20-[address] [place] [address] ([id number]) Weight 121.02 kg (no code) kg 02-14-2018 NISHI PALENCIA [facility] 15:20-[address] [place] [address] ([id number]) Weight 123.74 kg (no code) kg 02-03-2018 NISHI PALENCIA [facility] 14:00-[address] [place] [address] ([id number]) Weight 124.33 kg (no code) kg 01-31-2018 NISHI PALENCIA [facility] 12:00-[address] [place] [address] (13867) Weight 122.47 kg (no code) kg 01-26-2018 ADDI conley 13:00-0400 DAMIÁN [address] [place] [address] (22556) Interventions No Information Plan of Treatment Normalized Care Care Detail Care Activity Date Care Provider F acility Activity (CHM) [facility] 06-08-2018 NISHI PALENCIA [address]37 [facility] ([id number]) (CHM) [facility] 07-08-[address] [address] ([id number]) (CHM) [facility] 08-03-[address] [address] ([id number]) (PROC-20) [facility] 05-24-2018 NISHI [place] [facility] Procedure-20 min [facility] ([id number]) Goals No Information Social History No Information Functional Status The data below is from unstructured sourcesNo functional status results.No functional status information available.No functional status information available. Mental Status No Information Encounters Encounter Normalized Encounter Encounter Diagnosis Care Provi sosa Organization Date Type 09-25-2019 Emergency department no information TAM ALBRECHT MD (no [facility] patient visit phone) [facility] (no phone) 04-20-2018 Emergency department no information no name no organization name patient visit 11-07-2017 Emergency department no information no name no organization name - patient visit 11-07-2017 01-05-2017 Emergency department no information no name no organization name - patient visit 01-05-2017 10-08-2011 Emergency department no information no name no organization name - patient visit 10-08-2011 09-28-2019 Evaluation and no information HOWARD ROSE MD (no [facility] - management of phone) [facility] 09-28-2019 inpatient (no phone) 09-25-2019 Evaluation and no information HOWARD ROSE MD (no [facility] management of phone) [facility] inpatient (no phone) 09-25-2019 Evaluation and no information HOWARD ROSE MD (no [facility] management of phone) [facility] inpatient (no phone) 04-20-2018 Evaluation and no information no name no organ ization name - management of 04-22-2018 inpatient 10-20-2011 Evaluation and no information no name no organ ization name - management of 10-21-2011 inpatient 05-19-2018 Patient encounter no information no name no or ganization name NEGATED Patient encounter no information no name no or ganization name 04-20-2018 - 04-22-2018 04-04-2018 Patient encounter no information no name no or ganization name 02-14-2018 Patient encounter no information no name no or ganization name 02-03-2018 Patient encounter no information no name no or ganization name 01-31-2018 Patient encounter no information no name no or ganization name 01-28-2018 Patient encounter no information no name no or ganization name 01-26-2018 Patient encounter no information no name no or ganization name 01-14-2018 Patient encounter no information no name no or ganization name 01-10-2018 Patient encounter no information no name no or ganization name 12-27-2017 Patient encounter no information no name no or ganization name 12-01-2017 Patient encounter no information no name no or ganization name 11-23-2017 Patient encounter no information no name no or ganization name 11-17-2017 Patient encounter no information no name no or ganization name 11-08-2017 Patient encounter no information no name no or ganization name 11-07-2017 Patient encounter no information no name no or ganization name 10-12-2017 Patient encounter no information no name no or ganization name 09-24-2017 Patient encounter no information no name no or ganization name 09-20-2017 Patient encounter no information no name no or ganization name 09-09-2017 Patient encounter no information no name no or ganization name 06-10-2017 Patient encounter no information no name no or ganization name 03-17-2016 Patient encounter no information no name no or ganization name 01-10-2020 Patient encounter no information ANTONELLA ESPINOSA [facility] (no phone) 10-25-2019 Patient encounter no information ANTONELLA ESPINOSA (no [facility] procedure phone) (no phone) [facility] (no phone) 10-04-2019 Patient encounter no information (no phone) [facility] procedure [facility] (no phone) 09-28-2019 Patient encounter no information HOWARD ROSE MD ( no [facility] - procedure phone) [facility] 09-28-2019 (no phone) 09-04-2019 Patient encounter no information no name no or ganization name procedure 08-04-2019 Patient encounter no information no name no or ganization name procedure 05-29-2019 Patient encounter no information no name no or ganization name procedure 04-05-2019 Patient encounter no information no name no or ganization name procedure 03-18-2019 Patient encounter no information no name no or ganization name procedure 01-04-2019 Patient encounter no information CHRISTINA SIMPSON APRN [facility] procedure (no phone) [facility] (no phone) 11-14-2018 Patient encounter no information no name no or ganization name procedure 09-13-2018 Patient encounter no information no name no or ganization name procedure 09-13-2018 Patient encounter no information CHRISTINA SIMPSON DRAFTER ASSISTANT [facility]2018 Patient encounter no information no name no or ganization name procedure 08-03-2018 Patient encounter no information no name no or ganization name procedure 07-08-2018 Patient encounter no information no name no or ganization name procedure 05-19-2018 Patient encounter no information CHRISTINA SIMPSON DRAFTER ASSISTANT [facility] procedure (no phone) [facility] angela MARTINO (no (no phone) phone) 04-09-2017 Patient encounter no information no name no or ganization name - procedure 04-09-2017 04-06-2017 Patient encounter no information no name no or ganization name - procedure 04-07-2017 10-20-2011 Patient encounter no information no name no or ganization name procedure 10-15-2011 Patient encounter no information no name no or ganization name procedure 12-13-2019 Telephone encounter Chronic systolic ANTONELLA ESPINOSA (no [facility] (congestive) heart phone) (no phone) failure 12-07-2019 Telephone encounter Other seborrheic ANTONELLA ESPINOSA (no [facility] (no phone) keratosis phone) 11-30-2019 Telephone encounter no information ANTONELLA ESPINOSA (n o [facility] phone) (no phone) Medical Equipment Equipment Code (if Equipment Original Equipment Identifier P rocedure Code (if Dates provided) Text (if provided) (if provided) provided) no information Inject no information (no no information 1 named assigning authority) no information Inject no information (no no information 1 named assigning authority) no information Inject no information (no no information named assigning authority) no information Inject no information (no no information named assigning authority) no information Inject no information (no no information named assigning authority) Payers Normalized Payer Value Medicare no information History general Narrative - Reported Note Type Note Facility History general Narrative - Reported Type Medical type II diabetes History Medical hyperlipidemia History Medical hypertension History Medical chronic pain back/knees History Surgical right knee arthroscopy 1994 History Surgical heart cath, 2010--clear History Surgical left knee arthroscopy 2010 History Surgical back surgery with rods 12/2016 History Hospitaliz surgeries ation History [facility] ED- Back/Left Side Pain [facility], [facility] and S OB 11/07/2017 ation History Hospitaliz [facility] x 3 days heart issues 04/22/18 ation [facility] ([id number]) Summary Purpose eClinicalWorks SubmissioneClinicalWorks SubmissioneClinicalWorks SubmissioneClinicalWorks SubmissioneClinicalWorks SubmissioneClinicalWorks SubmissioneClinicalWorks SubmissioneClinicalWorks Submission Advance Directives Directive Response Recor ded Date/Time Advance Directives No 10:18am Health Care Power of Electrical Repairer No 04/09/14 10:18am Organ Donor No 04/09/14 10:18am Resuscitation Status Full Code 04/09/14 10:18am Directive Response Recor ded Date/Time Advance Directives No 11:44am Health Care Power of Electrical Repairer No 06/06/17 11:44am Organ Donor No 06/06/17 11:44am Resuscitation Status Full Code 06/06/17 11:44am Discharge Instructions No hospital discharge instructions.No hospital discharge instruction information available. Additional Source Comments This clinical document has been generated using hike software that has been certified by the Office of the National Coordinator for Health Information Technology (ONC 15.99.04.3023.Diam.[id number]) and the National Committee for Loading Dock Helper (NCQA, as an eMeasure certified technology). FOR RECORDS PERTAINING TO PATIENTS WHO ARE OR HAVE BEEN ENROLLED IN A CHEMICAL D EPENDENCY/SUBSTANCE ABUSE PROGRAM, SOME INFORMATION MAY BE OMITTED. This clinica l summary was aggregated from multiple sources. Caution should be exercised in using it in the provision of clinical care. This summary normalizes information from multiple sources, and as a consequence, information in this document may ma terially change the coding, format and clinical context of patient data. In torres tion, data may be omitted in some cases. CLINICAL DECISIONS SHOULD BE BASED ON T HE PRIMARY CLINICAL RECORDS. [employer] provides no warranty or guara ntee of the accuracy or completeness of information in this document.The followi ng information is based on time limited clinical information UNRECOGNIZED CONTENT PROVIDED BELOW FOR UNRECOGNIZED SECTION MEDICAL (GENERAL) HISTORY Type Description Date Medical History type II diabetes Medical History hyperlipidemia Medical History hypertension Medical History chronic pain back/knees Surgical History right knee arthroscopy 1994 Surgical History heart cath, 2010--clear Surgical History left knee arthroscopy 2010 Surgical History back surgery with rods 12/2016 Hospitalization History surgeries Type Description Date Medical History type II [...] Hospital ED- Congested, cough and SOB 11/07/2017 Type Description Date Medical History type II [...] Hospital ED- Congested, cough and SOB 11/07/2017 Hospitalization History [facility] x 3 days heart issues 04/22/18 UNRECOGNIZED CONTENT PROVIDED BELOW FOR UNRECOGNIZED SECTION REASON FOR VISIT FYIWIC follow up-[place],MABP Reduction Challenge BP F/UDiabetes -Gwen FAITH Di abetes-[place] MAOxycodone- 02/22Diabetes Pt in for DM check up Ewelina Vega requestLab (walk-in)Diabetes, Pt reports he has a bruise on his lower right si de of his stomach-gwen FAITH Shortness of breath/Chest pain for the last 2 [facility], PT reports he was unable to breathe and took him to [facility]. PT had EKG done and they stated he was having a heart attack. PT notes for t he past month he has felt exhausted and unable to breathe -Gwen LYLESontrolled Med RefillDiabetes, PT reports a lot of shortness of breath, Dr Munguia set him u p to have his lungs checked this month. Diabetes - Gwen MAControlled Med Ref illDiabetes, pt states his feet are the same, right foot is worse after walking it swells, pt states he has a few knots on right abdomen. has been having gettin g head aches at night off and on for 3 weeks. Cshepherd MAMedication refill requ [id number] 11/08
--- OUTSIDE RECORDS SUMMARY | 2020-01-22 09:24 | XMS REPORT | Continuity of Care Document ---
Author Organization Unknown Address Unknown Phone Unavailable Allergies Active Description Code Type Severity Reaction Onset Reported/Identified Relationship to Patient Clinical Status Yes NO KNOWN DRUG ALLERGIES UNKNOWN NO KNOWN DRUG ALLERG Yes No Known Drug Allergies [id number] Drug Allergy Unknown N/A 10/08/2011 Medications Medication Packaging Start Date St op Date Route Dosage Sig INSULIN LISPRO VIAL [...] Type Code Diagnosis Diagnosed By 02/09/2008 250.02 VISHAL BETES MELLITUS TYPE II - UNCOMPLICATED, UNCONTROLLED 02/09/2008 ABBE CARO DO 250.02 DIABETES MELLITUS TYPE II - UNCOMPLICATED, UNCONTROLLED 02/09/2008 250.02 VISHAL BETES MELLITUS TYPE II - UNCOMPLICATED, UNCONTROLLED 02/09/2008 ABBE CARO DO 250.02 DIABETES MELLITUS TYPE II - UNCOMPLICATED, UNCONTROLLED 02/09/2008 ABBE CARO DO 250.02 DIABETES MELLITUS TYPE II - UNCOMPLICATED, UNCONTROLLED 02/09/2008 ABBE CARO DO 250.02 DIABETES MELLITUS TYPE II - UNCOMPLICATED, UNCONTROLLED 02/09/2008 250.02 VISHAL BETES MELLITUS TYPE II - UNCOMPLICATED, UNCONTROLLED 02/09/2008 250.02 VISHAL BETES MELLITUS TYPE II - UNCOMPLICATED, UNCONTROLLED 02/09/2008 ABBE CARO DO K 250.02 DIABETES MELLITUS TYPE II - UNCOMPLICATED, UNCONTROLLED 02/09/2008 DEANA NEGRETE APRN 250.02 DIABETES MELLITUS TYPE II - UNCOMPLICATED, UNCONTROLLE D 02/09/2008 NISHI PALENCIA APRN 250.02 DIABETES MELLITUS TYPE II - UNCOMPLICATED, UNCONTROLLE D 02/09/2008 NISHI PALENCIA APRN 250.02 DIABETES MELLITUS TYPE II - UNCOMPLICATED, UNCONTROLLE D 02/09/2008 INSHI PALENCIA APRN 250.02 DIABETES MELLITUS TYPE II - UNCOMPLICATED, UNCONTROLLE D 02/09/2008 NISHI PALENCIA APRN 250.02 DIABETES MELLITUS TYPE II - UNCOMPLICATED, UNCONTROLLE D 02/09/2008 ZULMA PATINO APRN 250.02 DIABETES MELLITUS TYPE II - UNCOMPLICATED, UNCONTROLLE D 02/09/2008 NISHI PALENCIA APRN 250.02 DIABETES MELLITUS TYPE II - UNCOMPLICATED, UNCONTROLLE D 02/09/2008 NISHI PALENCIA APRN 250.02 DIABETES MELLITUS TYPE II - UNCOMPLICATED, UNCONTROLLE D 02/09/2008 NISHI PALENCIA APRN 250.02 DIABETES MELLITUS TYPE II - UNCOMPLICATED, UNCONTROLLE D 02/09/2008 NISHI PALENCIA APRN 250.02 DIABETES MELLITUS TYPE II - UNCOMPLICATED, UNCONTROLLE D 02/09/2008 NISHI PALENCIA APRN 250.02 DIABETES MELLITUS TYPE II - UNCOMPLICATED, UNCONTROLLE D 05/15/2008 250.00 VISHAL BETES MELLITUS 05/15/2008 ABBE CARO DO K 250.00 DIABETES MELLITUS 05/15/2008 250.00 VISHAL BETES MELLITUS 05/15/2008 STACY CARO DOA K 250.00 DIABETES MELLITUS POORLY CONTROLLED 05/15/2008 STACY CARO DOA K 250.00 DIABETES MELLITUS POORLY CONTROLLED 05/15/2008 STACY CARO DOA K 250.00 DIABETES MELLITUS POORLY CONTROLLED 05/15/2008 250.00 VISHAL BETES MELLITUS POORLY CONTROLLED 05/15/2008 250.00 VISHAL BETES MELLITUS POORLY CONTROLLED 05/15/2008 STACY CARO DOA K 250.00 DIABETES MELLITUS POORLY CONTROLLED 05/15/2008 DEANA NEGRETE APRN 250.00 DIABETES MELLITUS POORLY CONTROLLED 05/15/2008 SLIME FINE HAIRER, NISHI T 250.00 DIABETES MELLITUS POORLY CONTROLLED 05/15/2008 SLIME FINE HAIRER, NISHI T 250.00 DIABETES MELLITUS POORLY CONTROLLED 05/15/2008 SLIME FINE HAIRER, NISHI T 250.00 DIABETES MELLITUS POORLY CONTROLLED 05/15/2008 SLIME FINE HAIRER, NISHI T 250.00 DIABETES MELLITUS POORLY CONTROLLED 05/15/2008 CAREY FINE HAIRER, ZULMA R 250.00 DIABETES MELLITUS POORLY CONTROLLED 05/15/2008 SLIME FINE HAIRER, NISHI T 250.00 DIABETES MELLITUS POORLY CONTROLLED 05/15/2008 SLIME FINE HAIRER, NISHI T 250.00 DIABETES MELLITUS POORLY CONTROLLED 05/15/2008 SLIME FINE HAIRER, NISHI T 250.00 DIABETES MELLITUS POORLY CONTROLLED 05/15/2008 SLIME FINE HAIRER, NISHI T 250.00 DIABETES MELLITUS POORLY CONTROLLED 05/15/2008 SLIME FINE HAIRER, NISHI T 250.00 DIABETES MELLITUS POORLY CONTROLLED 09/20/2008 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 09/20/2008 278.02 [facility] 09/20/2008 CARO DO, ABBE K 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 FAMILIAL HYPERCHOLESTEROLEMIA 09/20/2008 CARO DO, ABBE K 278.02 OVERWEIGHT 09/20/2008 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 09/20/2008 278.02 [facility] 09/20/2008 CARO DO, ABBE K 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 FAMILIAL HYPERCHOLESTEROLEMIA 09/20/2008 CARO DO, ABBE K 278.02 OVERWEIGHT 09/20/2008 CARO DO, ABBE K 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 FAMILIAL HYPERCHOLESTEROLEMIA 09/20/2008 CARO DO, ABBE K 278.02 OVERWEIGHT 09/20/2008 CARO DO, ABBE K 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 FAMILIAL HYPERCHOLESTEROLEMIA 09/20/2008 CARO DO, ABBE K 278.02 OVERWEIGHT 09/20/2008 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 09/20/2008 278.02 [facility] 09/20/2008 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 09/20/2008 278.02 [facility] 09/20/2008 CARO DO, ABBE K 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 FAMILIAL HYPERCHOLESTEROLEMIA 09/20/2008 CARO DO, ABBE K 278.02 OVERWEIGHT 09/20/2008 MARCOS NEGRETE APRNCY N 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 FAMILIAL HYPERCHOLESTEROLEMIA 09/20/2008 DEANA NEGRETE APRN N 278.02 OVERWEIGHT 09/20/2008 SLIME FINE HAIRER, NISHI T 27 2.0 HYPERLIPIDEMIA FAMILIAL HYPERCHOLESTEROLEMIA 09/20/2008 SLIME FINE HAIRER, NISHI T 278.02 OVERWEIGHT 09/20/2008 SLIME FINE HAIRER, NISHI T 27 2.0 HYPERLIPIDEMIA FAMILIAL HYPERCHOLESTEROLEMIA 09/20/2008 SLIME FINE HAIRER, NISHI T 278.02 OVERWEIGHT 09/20/2008 SLIME FINE HAIRER, NISHI T 27 2.0 HYPERLIPIDEMIA FAMILIAL HYPERCHOLESTEROLEMIA 09/20/2008 SLIME FINE HAIRER, NISHI T 278.02 OVERWEIGHT 09/20/2008 SLIME FINE HAIRER, NISHI T 27 2.0 HYPERLIPIDEMIA FAMILIAL HYPERCHOLESTEROLEMIA 09/20/2008 SLIME FINE HAIRER, NISHI T 278.02 OVERWEIGHT 09/20/2008 PATINO FINE HAIRER, ZULMA R 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 FAMILIAL HYPERCHOLESTEROLEMIA 09/20/2008 CAREY FINE HAIRER, ZULMA R 278.02 OVERWEIGHT 09/20/2008 SLIME FINE HAIRERNISHI T 27 2.0 HYPERLIPIDEMIA FAMILIAL HYPERCHOLESTEROLEMIA 09/20/2008 SLIME FINE HAIRER, NISHI T 278.02 OVERWEIGHT 09/20/2008 SLIME FINE HAIRER, NISHI T 27 2.0 HYPERLIPIDEMIA FAMILIAL HYPERCHOLESTEROLEMIA 09/20/2008 SLIME FINE HAIRER, NISHI T 278.02 OVERWEIGHT 09/20/2008 SLIME FINE HAIRER NISHI T 27 2.0 HYPERLIPIDEMIA FAMILIAL HYPERCHOLESTEROLEMIA 09/20/2008 SLIME FINE HAIRER, NISHI T 278.02 OVERWEIGHT 09/20/2008 SLIME FINE HAIRER, NISHI T 27 2.0 HYPERLIPIDEMIA FAMILIAL HYPERCHOLESTEROLEMIA 09/20/2008 SLIME FINE HAIRER, NISHI T 278.02 OVERWEIGHT 09/20/2008 SLIME FINE HAIRER, NISHI T 27 2.0 HYPERLIPIDEMIA FAMILIAL HYPERCHOLESTEROLEMIA 09/20/2008 SLIME FINE HAIRER, NISHI T 278.02 OVERWEIGHT 01/24/2009 959.09 Oth er And Unspecified Injury To Face And Neck 01/24/2009 ABBE CARO DO 959.09 Other And Unspecified Injury To Face And Neck 01/24/2009 959.09 Oth er And Unspecified Injury To Face And Neck 01/24/2009 ABBE CARO DO 959.09 Other And Unspecified Injury To Face And Neck 01/24/2009 ABBE CARO DO 959.09 Other And Unspecified Injury To Face And Neck 01/24/2009 ABBE CARO DO 959.09 Other And Unspecified Injury To Face And Neck 01/24/2009 959.09 Oth er And Unspecified Injury To Face And Neck 01/24/2009 959.09 Oth er And Unspecified Injury To Face And Neck 01/24/2009 CARO DO, ABBE K 959.09 Other And Unspecified Injury To Face And Neck 01/24/2009 DEANA NEGRETE APRN N 959.09 Other And Unspecified Injury To Face [...] DO, ABBE K 724.2 LUMBAGO 11/07/2009 724.2 lowe r back pain 11/07/2009 CARO DO, ABBE K 724.2 lower back pain 11/07/2009 CARO DO, ABBE K 724.2 lower back pain 11/07/2009 CARO DO, ABBE K 724.2 lower back pain 11/07/2009 724.2 lowe r back pain 11/07/2009 724.2 lowe r back pain 11/07/2009 CARO DO, ABBE K 724.2 lower back pain 11/07/2009 DEANA NEGRETE APRN N 724.2 lower back pain 11/07/2009 NISHI PALENCIA APRN 72 4.2 lower back pain 11/07/2009 NISHI PALENCIA APRN 72 4.2 lower back pain 11/07/2009 SLIME FINE HAIRER, NISHI T 72 4.2 lower back pain 11/07/2009 SLIME FINE HAIRER, NISHI T 72 4.2 lower back pain 11/07/2009 CAREY JOHNSON ZULMA R 724.2 lower back pain 11/07/2009 SLIME FINE HAIRER, NISHI T 72 4.2 lower back pain 11/07/2009 SLIME FINE HAIRER, NISHI T 72 4.2 lower back pain 11/07/2009 SLIME FINE HAIRER, NISHI T 72 4.2 lower back pain 11/07/2009 SLIME FINE HAIRER, NISHI T 72 4.2 lower back pain 11/07/2009 SLIME FINE HAIRER, NISHI T 72 4.2 lower back pain 01/21/2010 465.9 Uppe r Respiratory Infection 01/21/2010 786.2 Cough 01/21/2010 CARO DO, ABBE K 465.9 Upper Respiratory Infection 01/21/2010 CARO DO, ABBE K 786.2 Cough 01/21/2010 465.9 Uppe r Respiratory Infection 01/21/2010 786.2 Cough 01/21/2010 CARO DO, ABBE K 465.9 Upper Respiratory Infection 01/21/2010 CARO DO, ABBE K 786.2 Cough 01/21/2010 CARO DO, ABBE K 465.9 Upper Respiratory Infection 01/21/2010 CARO DO, ABBE K 786.2 Cough 01/21/2010 CARO DO, ABBE K 465.9 Upper Respiratory Infection 01/21/2010 CARO DO, ABBE K 786.2 Cough 01/21/2010 465.9 Uppe r Respiratory Infection 01/21/2010 786.2 Cough 01/21/2010 465.9 Uppe r Respiratory Infection 01/21/2010 786.2 Cough 01/21/2010 CARO DO, ABBE K 465.9 Upper Respiratory Infection 01/21/2010 CARO DO, ABBE K 786.2 Cough 01/21/2010 NICHOLSELSIE ANDINO FINE HAIRER, DEANA N 465.9 Upper Respiratory Infection 01/21/2010 MAGDALENA ANDINO FINE HAIRER, DEANA N 786.2 Cough 01/21/2010 SLIME BARRONN, NISHI T 46 5.9 Upper Respiratory Infection 01/21/2010 SLIME FINE HAIRER, NISHI T 78 6.2 Cough 01/21/2010 SLIME JOHNSON NISHI T 46 5.9 Upper Respiratory Infection 01/21/2010 SLIME BARRONN, NISHI T 78 6.2 Cough 01/21/2010 SLIME FINE HAIRER, NISHI T 46 5.9 Upper Respiratory Infection 01/21/2010 SLIME FINE HAIRER, NISHI T 78 6.2 Cough 01/21/2010 SLIME FINE HAIRER, NISHI T 46 5.9 Upper Respiratory Infection 01/21/2010 SLIME FINE HAIRER, NISHI T 78 6.2 Cough 01/21/2010 PATINO FINE HAIRER, ZULMA R 465.9 Upper Respiratory Infection 01/21/2010 PATINO FINE HAIRER, ZULMA R 786.2 Cough 01/21/2010 SLIME FINE HAIRER, NISHI T 46 5.9 Upper Respiratory Infection 01/21/2010 SLIME FINE HAIRER, NISHI T 78 6.2 Cough 01/21/2010 SLIME FINE HAIRER, NISHI T 46 5.9 Upper Respiratory Infection 01/21/2010 SLIME FINE HAIRER, NISHI T 78 6.2 Cough 01/21/2010 SLIME FINE HAIRER, NISHI T 46 5.9 Upper Respiratory Infection 01/21/2010 SLIME FINE HAIRER, NISHI T 78 6.2 Cough 01/21/2010 SLIME FINE HAIRER, NISHI T 46 5.9 Upper Respiratory Infection 01/21/2010 SLIME FINE HAIRER, NISHI T 78 6.2 Cough 01/21/2010 SLIME FINE HAIRER, NISHI T 46 5.9 Upper Respiratory Infection 01/21/2010 SLIME FINE HAIRER, NISHI T 78 6.2 Cough 03/06/2010 110.4 Derm atophytosis, Of Foot 03/06/2010 CARO DO, ABBE K 110.4 Dermatophytosis, Of Foot 03/06/2010 110.4 Derm atophytosis, Of Foot 03/06/2010 CARO DO, ABBE K 110.4 Dermatophytosis, Of Foot 03/06/2010 CARO DO, ABBE K 110.4 Dermatophytosis, Of Foot 03/06/2010 CARO DO, ABBE K 110.4 Dermatophytosis, Of Foot 03/06/2010 110.4 Derm atophytosis, Of Foot 03/06/2010 110.4 Derm atophytosis, Of Foot 03/06/2010 CARO DO, ABBE K 110.4 Dermatophytosis, Of Foot 03/06/2010 DEANA NEGRETE APRN 110.4 Dermatophytosis, Of Foot 03/06/2010 SLIME JOHNSON, NISHI T 11 0.4 Dermatophytosis, Of Foot 03/06/2010 SLIME BARRONN, NISHI T 11 0.4 Dermatophytosis, Of Foot 03/06/2010 SLIME JOHNSON NISHI T 11 0.4 Dermatophytosis, Of Foot 03/06/2010 SLIME JOHNSON NISHI T 11 0.4 Dermatophytosis, Of Foot 03/06/2010 CAREY JOHNSON ZULMA R 110.4 Dermatophytosis, Of Foot 03/06/2010 SLIME JOHNSON NISHI T 11 0.4 Dermatophytosis, Of Foot 03/06/2010 SLIME JOHNSON NISHI T 11 0.4 Dermatophytosis, Of Foot 03/06/2010 SLIME BARRONN NISHI T 11 0.4 Dermatophytosis, Of Foot 03/06/2010 NISHI PALENCIA APRN T 11 0.4 Dermatophytosis, Of Foot 03/06/2010 SLIME BARORNNNISHI T 11 0.4 Dermatophytosis, Of Foot 07/15/2010 466.0 Bron chitis, Acute 07/15/2010 780.79 Mal aise And Fatigue 07/15/2010 CARO DO, ABBE K 466.0 Bronchitis, Acute 07/15/2010 CARO DO, ABBE K 780.79 Malaise And Fatigue 07/15/2010 466.0 Bron chitis, Acute 07/15/2010 780.79 Mal aise And Fatigue 07/15/2010 CARO DO, ABBE K 466.0 Bronchitis, Acute 07/15/2010 CARO DO, ABBE K 780.79 Malaise And Fatigue 07/15/2010 CARO DO, ABBE K 466.0 Bronchitis, Acute 07/15/2010 CARO DO, ABBE K 780.79 Malaise And Fatigue 07/15/2010 CARO DO, ABBE K 466.0 Bronchitis, Acute 07/15/2010 CARO DO, ABBE K 780.79 Malaise And Fatigue 07/15/2010 466.0 Bron chitis, Acute 07/15/2010 780.79 Mal aise And Fatigue 07/15/2010 466.0 Bron chitis, Acute 07/15/2010 780.79 Mal aise And Fatigue 07/15/2010 CARO DO, ABBE K 466.0 Bronchitis, Acute 07/15/2010 CARO DO, ABBE K 780.79 Malaise And Fatigue 07/15/2010 MAGDALENA ANDINO FINE HAIRER, DEANA N 466.0 Bronchitis, Acute 07/15/2010 NICHOLS CASHERO FINE HAIRER, DEANA N 780.79 Malaise And Fatigue 07/15/2010 SLIME FINE HAIRER, NISHI T 46 6.0 Bronchitis, Acute 07/15/2010 SLIME FINE HAIRER, NISHI T 780.79 Malaise And Fatigue 07/15/2010 SLIME FINE HAIRER, NISHI T 46 6.0 Bronchitis, Acute 07/15/2010 SLIME FINE HAIRER, NISHI T 780.79 Malaise And Fatigue 07/15/2010 SLIME FINE HAIRER, NISHI T 46 6.0 Bronchitis, Acute 07/15/2010 SLIME FINE HAIRER, NISHI T 780.79 Malaise And Fatigue 07/15/2010 SLIME FINE HAIRER, NISHI T 46 6.0 Bronchitis, Acute 07/15/2010 SLIME FINE HAIRER, NISHI T 780.79 Malaise And Fatigue 07/15/2010 CAREY FINE HAIRER, ZULMA R 466.0 Bronchitis, Acute 07/15/2010 CAREY FINE HAIRER, ZULMA R 780.79 Malaise And Fatigue 07/15/2010 SLIME BARRONN NISHI T 46 6.0 Bronchitis, Acute 07/15/2010 SLIME BARRONN, NISHI T 780.79 Malaise And Fatigue 07/15/2010 SLIME FINE HAIRER, NISHI T 46 6.0 Bronchitis, Acute 07/15/2010 SLIME FINE HAIRER, NISHI T 780.79 Malaise And Fatigue 07/15/2010 SLIME BARRONN, NISHI T 46 6.0 Bronchitis, Acute 07/15/2010 SLIME FINE HAIRER, NISHI T 780.79 Malaise And Fatigue 07/15/2010 SLIME BARRONN, NISHI T 46 6.0 Bronchitis, Acute 07/15/2010 SLIME BARRONN, NISHI T 780.79 Malaise And Fatigue 07/15/2010 SLIME BARRONN NISHI T 46 6.0 Bronchitis, Acute 07/15/2010 SLIME FINE HAIRER, NISHI T 780.79 Malaise And Fatigue 01/31/2011 249.60 Sec ondary Diabetes Mellitus With Neurological Manifestation Not Stated As Uncontrolled Or Unspecified 01/31/2011 401.1 HYPE RTENSION, BENIGN ESSENTIAL 01/31/2011 ABBE CARO DO 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 01/31/2011 ABBE CARO DO 401.1 HYPERTENSION, BENIGN ESSENTIAL 01/31/2011 249.60 Sec ondary Diabetes Mellitus With Neurological Manifestation Not Stated As Uncontrolled Or Unspecified 01/31/2011 401.1 ESSE NTIAL HYPERTENSION BENIGN 01/31/2011 CARO DO, ABBE K 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 01/31/2011 CARO DO, ABBE K 401.1 ESSENTIAL HYPERTENSION BENIGN 01/31/2011 CARO DO, ABBE K 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 01/31/2011 CARO DO, ABBE K 401.1 ESSENTIAL HYPERTENSION BENIGN 01/31/2011 CARO DO, ABBE K 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 01/31/2011 CARO DO, ABBE K 401.1 ESSENTIAL HYPERTENSION BENIGN 01/31/2011 249.60 Sec ondary Diabetes Mellitus With Neurological Manifestation Not Stated As Uncontrolled Or Unspecified 01/31/2011 401.1 ESSE NTIAL HYPERTENSION BENIGN 01/31/2011 249.60 Sec ondary Diabetes Mellitus With Neurological Manifestation Not Stated As Uncontrolled Or Unspecified 01/31/2011 401.1 ESSE NTIAL HYPERTENSION BENIGN 01/31/2011 CARO DO, ABBE K 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 01/31/2011 CARO DO, ABBE K 401.1 ESSENTIAL HYPERTENSION BENIGN 01/31/2011 DEANA NEGRETE APRN 249.60 Secondary Diabetes Mellitus With Neurolo gical Manifestation Not Stated As Uncontrolled Or Unspecified 01/31/2011 DEANA NEGRETE APRN N 401.1 ESSENTIAL HYPERTENSION BENIGN 01/31/2011 NISHI PALENCIA APRN 249.60 Secondary Diabetes Mellitus With Neurolo gical Manifestation Not Stated As Uncontrolled Or Unspecified 01/31/2011 NISHI PALENCIA APRN 40 1.1 ESSENTIAL HYPERTENSION BENIGN 01/31/2011 NISHI PALENCIA APRN 249.60 Secondary Diabetes Mellitus With Neurolo gical Manifestation Not Stated As Uncontrolled Or Unspecified 01/31/2011 NISHI PALENCIA APRN 40 1.1 ESSENTIAL HYPERTENSION BENIGN 01/31/2011 NISHI PALENCIA APRN 249.60 Secondary Diabetes Mellitus With Neurolo gical Manifestation Not Stated As Uncontrolled Or Unspecified 01/31/2011 NISHI PALENCIA APRN 40 1.1 ESSENTIAL HYPERTENSION BENIGN 01/31/2011 NISHI PALENCIA APRN 249.60 Secondary Diabetes Mellitus With Neurolo gical Manifestation Not Stated As Uncontrolled Or Unspecified 01/31/2011 NISHI PALENCIA APRN 40 1.1 ESSENTIAL HYPERTENSION BENIGN 01/31/2011 ZULMA PATINO APRN R 249.60 Secondary Diabetes Mellitus With Neurolo gical Manifestation Not Stated As Uncontrolled Or Unspecified 01/31/2011 ZULMA PATINO APRN R 401.1 ESSENTIAL HYPERTENSION BENIGN 01/31/2011 NISHI PALENCIA APRN 249.60 Secondary Diabetes Mellitus With Neurolo gical Manifestation Not Stated As Uncontrolled Or Unspecified 01/31/2011 NISHI PALENCIA APRN 40 1.1 ESSENTIAL HYPERTENSION BENIGN 01/31/2011 NISHI PALENCIA APRN 249.60 Secondary Diabetes Mellitus With Neurolo gical Manifestation Not Stated As Uncontrolled Or Unspecified 01/31/2011 NISHI PALENCIA APRN 40 1.1 ESSENTIAL HYPERTENSION BENIGN 01/31/2011 NISHI PALENCIA APRN 249.60 Secondary Diabetes Mellitus With Neurolo gical Manifestation Not Stated As Uncontrolled Or Unspecified 01/31/2011 NISHI PALENCIA APRN 40 1.1 ESSENTIAL HYPERTENSION BENIGN 01/31/2011 NISHI PALENCIA APRN 249.60 Secondary Diabetes Mellitus With Neurolo gical Manifestation Not Stated As Uncontrolled Or Unspecified 01/31/2011 NISHI PALENCIA APRN 40 1.1 ESSENTIAL HYPERTENSION BENIGN 01/31/2011 NISHI PALENCIA APRN 249.60 Secondary Diabetes Mellitus With Neurolo gical Manifestation Not Stated As Uncontrolled Or Unspecified 01/31/2011 NISHI PALENCIA APRN 40 1.1 ESSENTIAL HYPERTENSION BENIGN 10/08/[address] PAIN 10/08/2011 CARO DO, ABBE K 786.50 CHEST PAIN 10/08/[address] PAIN 10/08/2011 CARO DO, ABBE K 786.50 CHEST PAIN 10/08/2011 CARO DO, ABBE K 786.50 CHEST PAIN 10/08/2011 CARO DO, ABBE K 786.50 CHEST PAIN 10/08/[address] PAIN 10/08/[address] PAIN 10/08/2011 CARO DO, ABBE K 786.50 CHEST PAIN 10/08/2011 DEANA NEGRETE APRN 786.50 CHEST PAIN 10/08/2011 NISHI PALENCIA APRN 786.50 CHEST PAIN 10/08/2011 NISHI PALENCIA APRN 786.50 CHEST PAIN 10/08/2011 NISHI PALENCIA APRN 786.50 CHEST PAIN 10/08/2011 NISHI PALENCIA APRN 786.50 CHEST PAIN 10/08/2011 CAREY JOHNSON ZULMA R 786.50 CHEST PAIN 10/08/2011 NISHI PALENCIA APRN 786.50 CHEST PAIN 10/08/2011 NISHI PALENCIA APRN 786.50 CHEST PAIN 10/08/2011 NISHI PALENCIA APRN 786.50 CHEST PAIN 10/08/2011 NISHI PALENCIA APRN 786.50 CHEST PAIN 10/08/2011 NISHI PALENCIA APRN 786.50 CHEST PAIN 10/08/2011 Ot 250.00 VISHAL B FAISAL WO COMPL, TYPE II OR UNSPEC TY 10/08/2011 Ot 722.52 LUM B/LUMBOSAC DISC DEGEN 10/08/2011 Ot 724.8 OTHE R BACK SYMPTOMS 10/08/[address] PAIN NOS 10/08/2011 Ot V58.67 NARCISO G-TERM (CURRENT) USE OF INSULIN 10/08/2011 Ot V58.69 OTH MED,LT,CURRENT USE 10/21/2011 Ot 250.00 VISHAL B FAISAL WO COMPL, TYPE II OR UNSPEC TY 10/21/2011 Ot 272.4 HYPE RLIPIDEMIA NEC/NOS 10/21/2011 Ot 278.00 OBE SITY, NOS 10/21/2011 Ot 401.9 HYPE RTENSION NOS 10/21/2011 Ot 414.01 COR ONARY ATHEROSCLEROSIS OF [place] CORON 10/21/2011 Ot 724.5 BACK ACHE NOS 10/21/[address] PAIN NOS 10/21/2011 Ot 794.30 ABN CARDIOVASC STUDY NOS 10/21/2011 Ot V17.49 FAM JUAN HISTORY OF OTHER CARDIOVASCULAR D 10/21/2011 Ot V58.66 NARCISO G-TERM (CURRENT) USE OF ASPIRIN 10/21/2011 Ot V58.67 NARCISO G-TERM (CURRENT) USE OF INSULIN 10/21/2011 Ot V58.69 OTH MED,LT,CURRENT USE 10/21/2011 Ot V85.41 BOD Y MASS INDEX 40.0-44.9, ADULT 03/18/2012 729.1 MYAL LEDY AND MYOSITIS UNSPECIFIED 03/18/2012 ABBE CARO DO 729.1 MYALGIA AND MYOSITIS UNSPECIFIED 03/18/2012 729.1 MYAL LEDY AND MYOSITIS UNSPECIFIED 03/18/2012 ABBE CARO DO 729.1 MYALGIA AND MYOSITIS UNSPECIFIED 03/18/2012 ABBE CARO DO 729.1 MYALGIA AND MYOSITIS UNSPECIFIED 03/18/2012 ABBE CARO DO K 729.1 MYALGIA AND MYOSITIS UNSPECIFIED 03/18/2012 729.1 MYAL LEDY AND MYOSITIS UNSPECIFIED 03/18/2012 729.1 MYAL LEDY AND MYOSITIS UNSPECIFIED 03/18/2012 ABBE CARO DO 729.1 MYALGIA AND MYOSITIS UNSPECIFIED 03/18/2012 NICHOLSDEANA FRIAS APRN 729.1 MYALGIA AND MYOSITIS UNSPECIFIED 03/18/2012 NISHI PALENCIA APRN 72 9.1 MYALGIA AND MYOSITIS UNSPECIFIED 03/18/2012 NISHI PALENCIA APRN 72 9.1 MYALGIA AND MYOSITIS UNSPECIFIED 03/18/2012 NISHI PALENCIA APRN 72 9.1 MYALGIA AND MYOSITIS UNSPECIFIED 03/18/2012 NISHI PALENCIA APRN T 72 9.1 MYALGIA AND MYOSITIS UNSPECIFIED 03/18/2012 ZULMA PATINO APRN 729.1 MYALGIA AND MYOSITIS UNSPECIFIED 03/18/2012 NISHI PALENCIA APRN T 72 9.1 MYALGIA AND MYOSITIS UNSPECIFIED 03/18/2012 NISHI PALENCIA APRN T 72 9.1 MYALGIA AND MYOSITIS UNSPECIFIED 03/18/2012 NISHI PALENCIA APRN T 72 9.1 MYALGIA AND MYOSITIS UNSPECIFIED 03/18/2012 NISHI PALENCIA APRN T 72 9.1 MYALGIA AND MYOSITIS UNSPECIFIED 03/18/2012 NISHI PALENCIA APRN T 72 9.1 MYALGIA AND MYOSITIS UNSPECIFIED 10/13/2012 ABBE CARO DO 709.9 skin lesion [Sx] 10/13/2012 ABBE CARO DO V70.0 Preventive Medicine Estab Patient Checkup Adult 40-64 10/13/2012 ABBE CARO DO 709.9 skin lesion [Sx] 10/13/2012 ABBE CARO DO V70.0 Preventive Medicine Estab Patient Checkup Adult 40-64 10/13/2012 CARO DO, ABBE K 709.9 skin lesion [Sx] 10/13/2012 CARO STACY KIRANA K V70.0 Preventive Medicine Estab Patient Checkup Adult 40-64 10/13/2012 709.9 skin lesion [Sx] 10/13/2012 V70.0 Prev entive Medicine Estab Patient Checkup Adult 40-64 10/13/2012 709.9 skin lesion [Sx] 10/13/2012 V70.0 Prev entive Medicine Estab Patient Checkup Adult 40-64 10/13/2012 GORDO KIRAN, ABBE K 709.9 skin lesion [Sx] 10/13/2012 CARO , ABBE K V70.0 Preventive Medicine Estab Patient Checkup Adult 40-64 10/13/2012 DEANA NEGRETE APRN 709.9 skin lesion [Sx] 10/13/2012 DEANA NEGRETE APRN V70.0 Preventive Medicine Estab Patient Checkup Adult 40-64 10/13/2012 NISHI PALENCIA APRN 70 9.9 skin lesion [Sx] 10/13/2012 NISHI PALENCIA APRN V7 0.0 Preventive Medicine Estab Patient Checkup Adult 40-64 10/13/2012 NISHI PALENCIA APRN 70 9.9 skin lesion [Sx] 10/13/2012 NISHI PALENCIA APRN V7 0.0 Preventive Medicine Estab Patient Checkup Adult 40-64 10/13/2012 NISHI PALENCIA APRN 70 9.9 skin lesion [Sx] 10/13/2012 NISHI PALENCIA APRN V7 0.0 Preventive Medicine Estab Patient Checkup Adult 40-64 10/13/2012 NISHI PALENCIA APRN 70 9.9 skin lesion [Sx] 10/13/2012 NISHI PALENCIA APRN V7 0.0 Preventive Medicine Estab Patient Checkup Adult 40-64 10/13/2012 ZULMA PATINO APRN 709.9 skin lesion [Sx] 10/13/2012 ZULMA PATINO APRN R V70.0 Preventive Medicine Estab Patient Checkup Adult 40-64 10/13/2012 NISHI PALENCIA APRN 70 9.9 skin lesion [Sx] 10/13/2012 NISHI PALENCIA APRN V7 0.0 Preventive Medicine Estab Patient Checkup Adult 40-64 10/13/2012 NISHI PALENCIA APRN 70 9.9 skin lesion [Sx] 10/13/2012 NISHI PALENCIA APRN V7 0.0 Preventive Medicine Estab Patient Checkup Adult 40-64 10/13/2012 NISHI PALENCIA APRN 70 9.9 skin lesion [Sx] 10/13/2012 NISHI PALENCIA APRN V7 0.0 Preventive Medicine Estab Patient Checkup Adult 40-64 10/13/2012 NISHI PALENCIA APRN 70 9.9 skin lesion [Sx] 10/13/2012 NISHI PALENCIA APRN V7 0.0 Preventive Medicine Estab Patient Checkup Adult 40-64 10/13/2012 NISHI PALENCIA APRN 70 9.9 skin lesion [Sx] 10/13/2012 NISHI PALENCIA APRN V7 0.0 Preventive Medicine Estab Patient Checkup Adult 40-64 05/12/2013 CARO DO, ABBE K 700 CORNS AND CALLOSITIES 05/12/2013 CARO DO, ABBE K 782.3 EDEMA 05/12/2013 MARCOS NEGRETE APRNCY N 700 CORNS AND CALLOSITIES 05/12/2013 MARCOS NEGRETE APRNCY N 782.3 EDEMA 05/12/2013 NISHI PALENCIA APRN 70 0 CORNS AND CALLOSITIES 05/12/2013 NISHI PALENCIA APRN 78 2.3 EDEMA 05/12/2013 NISHI PALENCIA APRN 70 0 CORNS AND CALLOSITIES 05/12/2013 NISHI PALENCIA APRN 78 2.3 EDEMA 05/12/2013 NISHI PALENCIA APRN 70 0 CORNS AND CALLOSITIES 05/12/2013 NISHI PALENCIA APRN 78 2.3 EDEMA 05/12/2013 NISHI PALENCIA APRN 70 0 CORNS AND CALLOSITIES 05/12/2013 NISHI PALENCIA APRN 78 2.3 EDEMA 05/12/2013 ZULMA PATINO APRN R 700 CORNS AND CALLOSITIES 05/12/2013 ZULMA PATINO APRN R 782.3 EDEMA 05/12/2013 NISHI PALENCIA APRN 70 0 CORNS AND CALLOSITIES 05/12/2013 NISHI PALENCIA APRN 78 2.3 EDEMA 05/12/2013 NISHI PALENCIA APRN 70 0 CORNS AND CALLOSITIES 05/12/2013 NISHI PALENCIA APRN 78 2.3 EDEMA 05/12/2013 SLIME FINE HAIRER, NISHI T 70 0 CORNS AND CALLOSITIES 05/12/2013 NISHI PALENCIA APRN T 78 2.3 EDEMA 05/12/2013 SLIME JOHNSON, NISHI T 70 0 CORNS AND CALLOSITIES 05/12/2013 NISHI PALENCIA APRN T 78 2.3 EDEMA 05/12/2013 SLIME JOHNSON, NISHI T 70 0 CORNS AND CALLOSITIES 05/12/2013 NISHI PALENCIA APRN T 78 2.3 EDEMA 08/08/2013 NICHOLSDEANA FRIAS APRN N 465.9 ACUTE UPPER RESPIRATORY INFECTIONS OF UNSPECIFIED SITE 08/08/2013 NISHI PALENCIA APRN T 46 5.9 ACUTE UPPER RESPIRATORY INFECTIONS OF UNSPECIFIED SITE 08/08/2013 NISHI PALENCIA APRN T 46 5.9 ACUTE UPPER RESPIRATORY INFECTIONS OF UNSPECIFIED SITE 08/08/2013 NISHI PALENCIA APRN T 46 5.9 ACUTE UPPER RESPIRATORY INFECTIONS OF UNSPECIFIED SITE 08/08/2013 NISHI PALENCIA APRN T 46 5.9 ACUTE UPPER RESPIRATORY INFECTIONS OF UNSPECIFIED SITE 08/08/2013 ZULMA PATINO APRN R 465.9 ACUTE UPPER RESPIRATORY INFECTIONS OF UNSPECIFIED SITE 08/08/2013 NISHI PALENCIA APRN T 46 5.9 ACUTE UPPER RESPIRATORY INFECTIONS OF UNSPECIFIED SITE 08/08/2013 SLIME JOHNSON NISHI T 46 5.9 ACUTE UPPER RESPIRATORY INFECTIONS OF UNSPECIFIED SITE 08/08/2013 NISHI PALENCIA APRN T 46 5.9 ACUTE UPPER RESPIRATORY INFECTIONS OF UNSPECIFIED SITE 08/08/2013 NISHI PALENCIA APRN T 46 5.9 ACUTE UPPER RESPIRATORY INFECTIONS OF UNSPECIFIED SITE 08/08/2013 NISHI PALENCIA APRN T 46 5.9 ACUTE UPPER RESPIRATORY INFECTIONS OF UNSPECIFIED SITE 04/09/2014 GINI WHITE, JEFERSON Baires Ot 401.9 HYPERTENSION NOS 04/09/2014 JEFERSON RUBALCAVA MD Ot 593.9 RENAL URETERAL DIS NOS 04/09/2014 JEFERSON RUBALCAVA MD Ot 724.2 LUMBAGO 04/16/2014 ZULMA PATINO APRN R 789.09 ABDOMINAL PAIN OTHER SPECIFIED SITE 04/16/2014 [...] FOR MALIGNANT NEOPLASMS COLON 03/17/2016 Ot 272.4 HYPE RLIPIDEMIA NEC/NOS 03/17/2016 Ot 401.9 HYPE RTENSION NOS 03/17/[address] PAIN NOS 03/17/2016 Ot 272.4 HYPE RLIPIDEMIA NEC/NOS 03/17/2016 Ot 401.9 HYPE RTENSION NOS 03/17/[address] PAIN NOS 03/17/2016 Ot 272.4 HYPE RLIPIDEMIA NEC/NOS 03/17/2016 Ot 401.9 HYPE RTENSION NOS 03/17/2016 Ot 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, NATIV 03/18/2016 NISHI PALENCIA Ot G89.29 OTHER CHRONIC PAIN 03/19/2016 NISHI PALENCIA Ot G89.29 OTHER CHRONIC PAIN 04/09/2016 NISHI PALENCIA Ot G89.29 OTHER CHRONIC PAIN 01/05/2017 Ot 272.4 HYPE RLIPIDEMIA NEC/NOS 01/05/2017 Ot 401.9 HYPE RTENSION NOS 01/05/[address] PAIN NOS 01/05/2017 Ot 272.4 HYPE RLIPIDEMIA NEC/NOS 01/05/2017 Ot 401.9 HYPE RTENSION NOS 01/05/[address] PAIN NOS 01/05/2017 Ot 272.4 HYPE RLIPIDEMIA NEC/NOS 01/05/2017 Ot 401.9 HYPE RTENSION NOS 01/05/2017 Ot 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, NATIV 01/05/2017 NISHI PALENCIA Ot G89.29 OTHER CHRONIC PAIN 01/05/2017 BURTON , SUMIT K Ot E11.9 TYPE 2 DIABETES MELLITUS WITHOUT COMPLIC 01/05/2017 BURTON , SUMIT K Ot I10 ESSENTIAL (PRIMARY) HYPERTENSION 01/05/2017 BURTON , SUMIT K Ot M25.571 PAIN IN RIGHT ANKLE AND JOINTS OF RIGHT 01/05/2017 BURTON DO SUMIT K Ot M54.16 RADICULOPATHY, LUMBAR REGION 01/05/2017 BURTON DO SUMIT K Ot Z79.4 ICT BUSINESS ANALYST (CURRENT) USE OF INSULIN 01/05/2017 BURTON DO SUMIT K Ot Z79.82 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 01/05/2017 BURTON , SUMIT K Ot Z79.84 RESIDENTIAL (CURRENT) USE OF ORAL HYPOGLYC 01/05/2017 UBRTON KIRAN SUMIT K Ot Z98.890 OTHER SPECIFIED POSTPROCEDURAL STATES 04/09/2017 Sander Nair V64.3 PROCEDURE NOT CARRIED OUT FOR OTHER REASONS 04/09/2017 Sander Nair Z53.8 PROCEDURE AND TREATMENT NOT CARRIED OUT FOR OTHER REAS ONS 06/06/2017 DAIJA FANG Ot E11.40 TYPE 2 DIABETES MELLITUS WITH DIABETIC N 06/06/2017 DAIJA FANG Ot G47.33 OBSTRUCTIVE SLEEP APNEA (ADULT) (PEDIATR 06/06/2017 DAIJA FANG Ot I 10 ESSENTIAL (PRIMARY) HYPERTENSION 06/06/2017 DAIJA FANG Ot M47.9 SPONDYLOSIS, UNSPECIFIED 06/06/2017 DAIJA FANG Ot M54.5 LOW BACK PAIN 06/06/2017 DAIJA FANG Ot R10.9 UNSPECIFIED ABDOMINAL PAIN 06/06/2017 DAIJA FANG Ot S39.012A STRAIN OF MUSCLE, FASCIA AND TENDON OF L 06/06/2017 DAIJA FANG Ot Z79.4 ICT BUSINESS ANALYST (CURRENT) USE OF INSULIN 06/06/2017 DAIJA FANG Ot Z79.82 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 06/06/2017 DAIJA FANG Ot Z87.891 PERSONAL HISTORY OF NICOTINE DEPENDENCE 09/27/2017 SLIME, NISHI T ORAL SURGERY TECHNICIAN Ot E27.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 09/27/2017 NISHI PALENCIA ORAL SURGERY TECHNICIAN Ot R07.81 PLEURODYNIA 09/30/2017 NISHI PALENCIA ORAL SURGERY TECHNICIAN Ot E27.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 09/30/2017 NISHI PALENCIA ORAL SURGERY TECHNICIAN Ot N28.1 CYST OF KIDNEY, ACQUIRED 09/30/2017 NISHI PALENCIA ORAL SURGERY TECHNICIAN Ot R07.81 PLEURODYNIA 10/14/2017 SLIMENISHI ORAL SURGERY TECHNICIAN Ot E27.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 10/14/2017 NISHI PALENCIA ORAL SURGERY TECHNICIAN Ot N28.1 CYST OF KIDNEY, ACQUIRED 10/14/2017 SLIME NISHI Viry ORAL SURGERY TECHNICIAN Ot R07.81 PLEURODYNIA 11/07/2017 DAIJA FANG Ot E11.40 TYPE 2 DIABETES MELLITUS WITH DIABETIC N 11/07/2017 DAIJA FANG Ot G47.30 SLEEP APNEA, UNSPECIFIED 11/07/2017 DAIJA FANG Ot I 10 ESSENTIAL (PRIMARY) HYPERTENSION 11/07/2017 DAIJA FANG Ot J 40 BRONCHITIS, NOT SPECIFIED ACUTE OR CH 11/07/2017 DAIJA FANG Ot M47.9 SPONDYLOSIS, UNSPECIFIED 11/07/2017 DAIJA FANG Ot R 05 COUGH 11/07/2017 DAIJA FANG Ot Z79.4 RESIDENTIAL (CURRENT) USE OF INSULIN 11/07/2017 DAIJA FANG Ot Z79.52 ICT BUSINESS ANALYST (CURRENT) USE OF SYSTEMIC STER 11/07/2017 DAIJA FANG Ot Z79.82 RESIDENTIAL (CURRENT) USE OF ASPIRIN 11/07/2017 DAIJA FANG Ot Z87.891 PERSONAL HISTORY OF NICOTINE DEPENDENCE 11/09/2017 DAIJA FANG Ot E11.40 TYPE 2 DIABETES MELLITUS WITH DIABETIC N 11/09/2017 DAIJA FANG Ot G47.30 SLEEP APNEA, UNSPECIFIED 11/09/2017 DAIJA FANG Ot I 10 ESSENTIAL (PRIMARY) HYPERTENSION 11/09/2017 DAIJA FANG Ot J 40 BRONCHITIS, NOT SPECIFIED ACUTE OR CH 11/09/2017 DAIJA FANG Ot M47.9 SPONDYLOSIS, UNSPECIFIED 11/09/2017 DAIJA FANG Ot R 05 COUGH 11/09/2017 DAIJA FANG Ot Z79.4 ICT BUSINESS ANALYST (CURRENT) USE OF INSULIN 11/09/2017 DAIJA FANG Ot Z79.82 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 11/09/2017 DAIJA FANG Ot Z87.891 PERSONAL HISTORY OF NICOTINE DEPENDENCE 11/09/2017 DAIJA FANG Ot E11.40 TYPE 2 DIABETES MELLITUS WITH DIABETIC N 11/09/2017 DAIJA FANG Ot G47.30 SLEEP APNEA, UNSPECIFIED 11/09/2017 DAIJA FANG L Ot I 10 ESSENTIAL (PRIMARY) HYPERTENSION 11/09/2017 DAIJA FANG Ot J 40 BRONCHITIS, NOT SPECIFIED ACUTE OR CH 11/09/2017 DAIJA FANG Ot M47.9 SPONDYLOSIS, UNSPECIFIED 11/09/2017 DAIJA FANG Ot R 05 COUGH 11/09/2017 DAIJA FANG Ot Z79.4 RESIDENTIAL (CURRENT) USE OF INSULIN 11/09/2017 DAIJA FANG Ot Z79.52 ICT BUSINESS ANALYST (CURRENT) USE OF SYSTEMIC STER 11/09/2017 DAIJA FANG Ot Z79.82 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 11/09/2017 DAIJA FANG Ot Z87.891 PERSONAL HISTORY OF NICOTINE DEPENDENCE 11/13/2017 DAIJA FANG Ot E11.40 TYPE 2 DIABETES MELLITUS WITH DIABETIC N 11/13/2017 DAIJA FANG Ot G47.30 SLEEP APNEA, UNSPECIFIED 11/13/2017 DAIJA FANG Ot I 10 ESSENTIAL (PRIMARY) HYPERTENSION 11/13/2017 DAIJA FANG Ot J 40 BRONCHITIS, NOT SPECIFIED ACUTE OR CH 11/13/2017 DAIJA FANG Ot M47.9 SPONDYLOSIS, UNSPECIFIED 11/13/2017 DAIJA FANG Ot R 05 COUGH 11/13/2017 DAIJA FANG Ot Z79.4 RESIDENTIAL (CURRENT) USE OF INSULIN 11/13/2017 DAIJA FANG Ot Z79.52 RESIDENTIAL (CURRENT) USE OF SYSTEMIC STER 11/13/2017 DAIJA FANG L Ot Z79.82 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 11/13/2017 DAIJA FANG Ot Z87.891 PERSONAL HISTORY OF NICOTINE DEPENDENCE 01/25/2018 NISHI PALENCIA SONAM Ot G89.29 OTHER CHRONIC PAIN 01/25/2018 SLIME NISHI Viry MASTERS Ot E27.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 01/25/2018 SLIMENISHI Viry MASTERS Ot N28.1 CYST OF KIDNEY, ACQUIRED 01/25/2018 SLIME NISHI Viry MASTERS Ot R07.81 PLEURODYNIA 02/01/2018 MERCED PETIT MD Ot E11.9 TYPE 2 DIABETES MELLITUS WITHOUT COMPLIC 02/01/2018 MERCED PETIT MD S Ot I12.9 HYPERTENSIVE CHRONIC KIDNEY DISEASE W ST 02/01/2018 MERCED PETIT MD S Ot N18.3 CHRONIC KIDNEY DISEASE, STAGE 3 (MODERAT 02/01/2018 MERCED PETIT MD S Ot N28.1 CYST OF KIDNEY, ACQUIRED 03/07/2018 MERCED PETIT MD S Ot E11.9 TYPE 2 DIABETES MELLITUS WITHOUT COMPLIC 03/07/2018 MERCED PETIT MD S Ot I12.9 HYPERTENSIVE CHRONIC KIDNEY DISEASE W ST 03/07/2018 MERCED PETIT MD S Ot N18.3 CHRONIC KIDNEY DISEASE, STAGE 3 (MODERAT 03/07/2018 MERCED PETIT MD S Ot N28.1 CYST OF KIDNEY, ACQUIRED 04/22/2018 PAKO CARREON MD Ot E11 .9 TYPE 2 DIABETES MELLITUS WITHOUT COMPLIC 04/22/2018 PAKO CARREON MD Ot E66 .9 OBESITY, UNSPECIFIED 04/22/2018 PAKO CARREON MD Ot E78 .5 HYPERLIPIDEMIA, UNSPECIFIED 04/22/2018 PAKO CARREON MD Ot E87 .5 HYPERKALEMIA 04/22/2018 PAKO CARREON MD Ot I10 ESSENTIAL (PRIMARY) HYPERTENSION 04/22/2018 PAKO CARREON MD Ot N28 .9 DISORDER OF KIDNEY AND URETER, UNSPECIFI 04/22/2018 PAKO CARREON MD Ot R06.02 SHORTNESS OF BREATH 04/22/2018 PAKO CARREON MD, Ot R07 .9 CHEST PAIN, UNSPECIFIED 04/22/2018 PAKO CARREON MD, Ot Z68.41 BODY MASS INDEX (BMI) 40.0-44.9, ADULT 04/22/2018 PAKO CARREON MD, Ot Z79 .4 ICT BUSINESS ANALYST (CURRENT) USE OF INSULIN 04/22/2018 PAKO CARREON MD, Ot Z82.49 FAMILY HX OF ISCHEM HEART DIS AND OTH DI 04/22/2018 PAKO CARREON MD, Ot Z87.891 PERSONAL HISTORY OF NICOTINE DEPENDENCE 05/03/2018 NISHI PALENCIA Ot E27.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 05/03/2018 NISHI PALENCIA Ot N28.1 CYST OF KIDNEY, ACQUIRED 05/03/2018 NISHI PALENCIA Ot R07.81 PLEURODYNIA 05/23/2018 CHRISTINA SIMPSON APRN Ot D64.9 ANEMIA, UNSPECIFIED 05/23/2018 CHRISTINA SIMPSON APRN Ot E11.9 TYPE 2 DIABETES MELLITUS WITHOUT COMPLIC 05/23/2018 CHRISTINA SIMPSON APRN Ot E27.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 05/23/2018 CHRISTINA SIMPSON APRN Ot I12.9 HYPERTENSIVE CHRONIC KIDNEY DISEASE W ST 05/23/2018 CHRISTINA SIMPSON APRN Ot N18.3 CHRONIC KIDNEY DISEASE, STAGE 3 (MODERAT 05/23/2018 CHRISTINA SIMPSON APRN Ot N28.1 CYST OF KIDNEY, ACQUIRED 05/23/2018 CHRISTINA SIMPSON APRN Ot R52 PAIN, UNSPECIFIED 05/23/2018 BECKA MICHELE Ot I11.9 HYPERTENSIVE HEART DISEASE WITHOUT HEART 05/23/2018 BECKA MICHELE Ot I25.10 ATHSCL HEART DISEASE OF [place] CORONARY 05/23/2018 BECKA MICHELE Ot I34.0 NONRHEUMATIC MITRAL (VALVE) INSUFFICIENC 06/02/2018 CHRISTINA SIMPSON APRN Ot D64.9 ANEMIA, UNSPECIFIED 06/02/2018 CHRISTINA SIMPSON APRN Ot E11.9 TYPE 2 DIABETES MELLITUS WITHOUT COMPLIC 06/02/2018 CHRISTINA SIMPSON APRN Ot E27.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 06/02/2018 CHRISTINA SIMPSON APRN Ot I12.9 HYPERTENSIVE CHRONIC KIDNEY DISEASE W ST 06/02/2018 CHRISTINA SIMPSON APRN Ot N18.3 CHRONIC KIDNEY DISEASE, STAGE 3 (MODERAT 06/02/2018 CHRISTINA SIMPSON APRN Ot N28.1 CYST OF KIDNEY, ACQUIRED 06/02/2018 CHRISTINA SIMPSON APRN Ot R52 PAIN, UNSPECIFIED 06/02/2018 BECKA MICHEEL Ot I11.9 HYPERTENSIVE HEART DISEASE WITHOUT HEART 06/02/2018 BECKA MICHELE Ot I25.10 ATHSCL HEART DISEASE OF [place] CORONARY 06/02/2018 BECKA MICHELE Ot I34.0 NONRHEUMATIC MITRAL (VALVE) INSUFFICIENC 06/09/2018 CHRISTINA SIMPSON APRN Ot D64.9 ANEMIA, UNSPECIFIED 06/09/2018 CHRISTINA SIMPSON APRN Ot E11.9 TYPE 2 DIABETES MELLITUS WITHOUT COMPLIC 06/09/2018 CHRISTINA SIMPSON APRN Ot E27.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 06/09/2018 CHRISTINA SIMPSON APRN Ot I12.9 HYPERTENSIVE CHRONIC KIDNEY DISEASE W ST 06/09/2018 CHRISTINA SIMPSON APRN Ot N18.3 CHRONIC KIDNEY DISEASE, STAGE 3 (MODERAT 06/09/2018 CHRISTINA SIMPSON APRN Ot N28.1 CYST OF KIDNEY, ACQUIRED 06/09/2018 CHRISTINA SIMPSON APRN Ot R52 PAIN, UNSPECIFIED 06/13/2018 NISHI PALENCIA Ot E27.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 06/13/2018 NISHI PALENCIA Ot N28.1 CYST OF KIDNEY, ACQUIRED 06/13/2018 NISHI PALENCIA Ot R07.81 PLEURODYNIA 06/29/2018 DAMASO WHITE, MERCED S Ot E11.9 TYPE 2 DIABETES MELLITUS WITHOUT COMPLIC 06/29/2018 DAMASO WHITE, MERCED S Ot I12.9 HYPERTENSIVE CHRONIC KIDNEY DISEASE W ST 06/29/2018 DAMASO WHITE, AHMED S Ot N18.3 CHRONIC KIDNEY DISEASE, STAGE 3 (MODERAT 06/29/2018 DAMASO WHITE, MERCED S Ot N28.1 CYST OF KIDNEY, ACQUIRED 09/13/2018 CHRISTNIA SIMPSON APRN Ot D64.9 ANEMIA, UNSPECIFIED 09/13/2018 CHRISTINA SIMPSON APRN Ot E11.9 TYPE 2 DIABETES MELLITUS WITHOUT COMPLIC 09/13/2018 CHRISTINA SIMPSON APRN Ot E27.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 09/13/2018 CHRISTINA SIMPSON APRN Ot I12.9 HYPERTENSIVE CHRONIC KIDNEY DISEASE W ST 09/13/2018 CHRISTINA SIMPSON APRN Ot N18.3 CHRONIC KIDNEY DISEASE, STAGE 3 (MODERAT 09/13/2018 CHRISTINA SIMPSON APRN Ot N28.1 CYST OF KIDNEY, ACQUIRED 09/13/2018 CHRISTINA SIMPSON APRN Ot R52 PAIN, UNSPECIFIED 09/13/2018 BECKA MICHELE Ot I11.9 HYPERTENSIVE HEART DISEASE WITHOUT HEART 09/13/2018 BECKA MICHELE Ot I25.10 ATHSCL HEART DISEASE OF [place] CORONARY 09/13/2018 BECKA MICHELE Ot I34.0 NONRHEUMATIC MITRAL (VALVE) INSUFFICIENC 09/14/2018 CHRISTINA SIMPSON APRN Ot D64.9 ANEMIA, UNSPECIFIED 09/14/2018 CHRISTINA SIMPSON APRN Ot 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 09/14/2018 CHRISTINA SIMPSON APRN Ot E27.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 09/14/2018 CHRISTINA SIMPSON APRN Ot E55.9 VITAMIN D DEFICIENCY, UNSPECIFIED 09/14/2018 CHRISTINA SIMPSON APRN Ot I12.9 HYPERTENSIVE CHRONIC KIDNEY DISEASE W ST 09/14/2018 CHRISTINA SIMPSON APRN Ot N18.3 CHRONIC KIDNEY DISEASE, STAGE 3 (MODERAT 09/14/2018 CHRISTINA SIMPSON APRN Ot N28.1 CYST OF KIDNEY, ACQUIRED 09/14/2018 CHRISTINA SIMPSON APRN Ot R06.02 SHORTNESS OF BREATH 09/14/2018 CHRISTINA SIMPSON APRN Ot R35.0 FREQUENCY OF MICTURITION 09/14/2018 CHRISTINA SIMPSON APRN Ot R35.1 NOCTURIA 09/19/2018 CHRISTINA SIMPSON APRN Ot D64.9 ANEMIA, UNSPECIFIED 09/19/2018 CHRISTINA SIMPSON APRN Ot 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 09/19/2018 CHRISTINA SIMPSON APRN Ot E27.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 09/19/2018 CHRISTINA SIMPSON APRN Ot E55.9 VITAMIN D DEFICIENCY, UNSPECIFIED 09/19/2018 CHRISTINA SIMPSON APRN Ot I12.9 HYPERTENSIVE CHRONIC KIDNEY DISEASE W ST 09/19/2018 CHRISTINA SIMPSON APRN Ot N18.3 CHRONIC KIDNEY DISEASE, STAGE 3 (MODERAT 09/19/2018 CHRISTINA SIMPSON APRN Ot N28.1 CYST OF KIDNEY, ACQUIRED 09/19/2018 CHRISTINA SIMPSON APRN Ot R06.02 SHORTNESS OF BREATH 09/19/2018 CHRISTINA SIMPSON APRN Ot R35.0 FREQUENCY OF MICTURITION 09/19/2018 CHRISTINA SIMPSON APRN Ot R35.1 NOCTURIA 09/19/2018 CHRISTINA SIMPSON APRN Ot D64.9 ANEMIA, UNSPECIFIED 09/19/2018 CHRISTINA SIMPSON APRN Ot E11.9 TYPE 2 DIABETES MELLITUS WITHOUT COMPLIC 09/19/2018 CHRISTINA SIMPSON APRN Ot E27.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 09/19/2018 CHRISTINA SIMPSON APRN Ot I12.9 HYPERTENSIVE CHRONIC KIDNEY DISEASE W ST 09/19/2018 CHRISTINA SIMPSON APRN Ot N18.3 CHRONIC KIDNEY DISEASE, STAGE 3 (MODERAT 09/19/2018 CHRISTINA SIMPSON APRN Ot N28.1 CYST OF KIDNEY, ACQUIRED 09/19/2018 CHRISTINA SIMPSON APRN Ot R52 PAIN, UNSPECIFIED 09/19/2018 BECKA MICHELE Ot I11.9 HYPERTENSIVE HEART DISEASE WITHOUT HEART 09/19/2018 BECKA MICHELE Ot I25.10 ATHSCL HEART DISEASE OF [place] CORONARY 09/19/2018 BECKA MICHELE Ot I34.0 NONRHEUMATIC MITRAL (VALVE) INSUFFICIENC 09/19/2018 CHRISTINA SIMPSON APRN Ot D64.9 ANEMIA, UNSPECIFIED 09/19/2018 CHRISTINA SIMPSON APRN Ot 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 09/19/2018 CHRISTINA SIMPSON APRN Ot E27.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 09/19/2018 CHRISTINA SIMPSON APRN Ot E55.9 VITAMIN D DEFICIENCY, UNSPECIFIED 09/19/2018 CHRISTINA SIMPSON APRN Ot I12.9 HYPERTENSIVE CHRONIC KIDNEY DISEASE W ST 09/19/2018 CHRISTINA SIMPSON APRN Ot N18.3 CHRONIC KIDNEY DISEASE, STAGE 3 (MODERAT 09/19/2018 CHRISTINA SIMPSON APRN Ot N28.1 CYST OF KIDNEY, ACQUIRED 09/19/2018 CHRISTINA SIMPSON APRN Ot R06.02 SHORTNESS OF BREATH 09/19/2018 CHRISTINA SIMPSON APRN Ot R35.0 FREQUENCY OF MICTURITION 09/19/2018 CHRISTINA SIMPSON APRN Ot R35.1 NOCTURIA 09/20/2018 CHRISTINA SIMPSON APRN Ot D64.9 ANEMIA, UNSPECIFIED 09/20/2018 CHRISTINA SIMPSON APRN Ot 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 09/20/2018 CHRISTINA SIMPSON APRN Ot E27.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 09/20/2018 CHRISTINA SIMPSON APRN Ot E55.9 VITAMIN D DEFICIENCY, UNSPECIFIED 09/20/2018 CHRISTINA SIMPSON APRN Ot I12.9 HYPERTENSIVE CHRONIC KIDNEY DISEASE W ST 09/20/2018 CHRISTINA SIMPSON APRN Ot N18.3 CHRONIC KIDNEY DISEASE, STAGE 3 (MODERAT 09/20/2018 CHRISTINA SIMPSON APRN Ot N28.1 CYST OF KIDNEY, ACQUIRED 09/20/2018 CHRISTINA SIMPSON APRN Ot R06.02 SHORTNESS OF BREATH 09/20/2018 CHRISTINA SIMPSON APRN Ot R35.0 FREQUENCY OF MICTURITION 09/20/2018 CHRISTINA SIMPSON APRN Ot R35.1 NOCTURIA 01/04/2019 CHRISTINA SIMPSON APRN Ot D64.9 ANEMIA, UNSPECIFIED 01/04/2019 CHRISTINA SIMSPON APRN Ot E11.9 TYPE 2 DIABETES MELLITUS WITHOUT COMPLIC 01/04/2019 CHRISTINA SIMPSON APRN Ot E27.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 01/04/2019 CHRISTINA SIMPSON APRN Ot I12.9 HYPERTENSIVE CHRONIC KIDNEY DISEASE W ST 01/04/2019 CHRISTINA SIMPSON APRN Ot N18.3 CHRONIC KIDNEY DISEASE, STAGE 3 (MODERAT 01/04/2019 CHRISTINA SIMPSON APRN Ot N28.1 CYST OF KIDNEY, ACQUIRED 01/04/2019 CHRISTINA SIMPSON APRN Ot R52 PAIN, UNSPECIFIED 01/04/2019 BECKA MICHELE Ot I11.9 HYPERTENSIVE HEART DISEASE WITHOUT HEART 01/04/2019 BECKA MICHELE Ot I25.10 ATHSCL HEART DISEASE OF [place] CORONARY 01/04/2019 BECKA MICHELE Ot I34.0 NONRHEUMATIC MITRAL (VALVE) INSUFFICIENC 01/04/2019 CHRISTINA SIMPSON APRN Ot D64.9 ANEMIA, UNSPECIFIED 01/04/2019 CHRISTINA SIMPOSN APRN Ot 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 01/04/2019 CHRISTINA SIMPSON APRN Ot E27.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 01/04/2019 CHRISTINA SIMPSON APRN Ot E55.9 VITAMIN D DEFICIENCY, UNSPECIFIED 01/04/2019 CHRISTINA SIMPSON APRN Ot I12.9 HYPERTENSIVE CHRONIC KIDNEY DISEASE W ST 01/04/2019 CHRISTINA SIMSPON APRN Ot N18.3 CHRONIC KIDNEY DISEASE, STAGE 3 (MODERAT 01/04/2019 CHRISTINA SIMPSON APRN Ot N28.1 CYST OF KIDNEY, ACQUIRED 01/04/2019 CHRISTINA SIMPSON APRN Ot R06.02 SHORTNESS OF BREATH 01/04/2019 CHRISTINA SIMPSON APRN Ot R35.0 FREQUENCY OF MICTURITION 01/04/2019 CHRISTINA SIMPSON APRN Ot R35.1 NOCTURIA 09/25/2019 CHRISTINA SIMPSON APRN Ot D64.9 ANEMIA, UNSPECIFIED 09/25/2019 CHRISTINA SIMPSON APRN Ot E11.9 TYPE 2 DIABETES MELLITUS WITHOUT COMPLIC 09/25/2019 CHRISTINA SIMPSON APRN Ot E27.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 09/25/2019 CHRISTINA SIMPSON APRN Ot I12.9 HYPERTENSIVE CHRONIC KIDNEY DISEASE W ST 09/25/2019 CHRISTINA SIMPSON APRN Ot N18.3 CHRONIC KIDNEY DISEASE, STAGE 3 (MODERAT 09/25/2019 CHRISTINA SIMPSON APRN Ot N28.1 CYST OF KIDNEY, ACQUIRED 09/25/2019 CHRISTINA SIMPSON APRN Ot R52 PAIN, UNSPECIFIED 09/25/2019 BECKA MICHELE Ot I11.9 HYPERTENSIVE HEART DISEASE WITHOUT HEART 09/25/2019 BECKA MICHELE Ot I25.10 ATHSCL HEART DISEASE OF [place] CORONARY 09/25/2019 BECKA MICHELE Ot I34.0 NONRHEUMATIC MITRAL (VALVE) INSUFFICIENC 09/25/2019 CHRISTINA SIMPSON APRN Ot D64.9 ANEMIA, UNSPECIFIED 09/25/2019 CHRISTINA SIMPSON APRN Ot 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 09/25/2019 CHRISTINA SIMPSON APRN Ot E27.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 09/25/2019 CHRISTINA SIMPSON APRN Ot E55.9 VITAMIN D DEFICIENCY, UNSPECIFIED 09/25/2019 CHRISTINA SIMPSON APRN Ot I12.9 HYPERTENSIVE CHRONIC KIDNEY DISEASE W ST 09/25/2019 CHRISTINA SIMPSON APRN Ot N18.3 CHRONIC KIDNEY DISEASE, STAGE 3 (MODERAT 09/25/2019 CHRISTINA SIMPSON APRN Ot N28.1 CYST OF KIDNEY, ACQUIRED 09/25/2019 CHRISTINA SIMPSON APRN Ot R06.02 SHORTNESS OF BREATH 09/25/2019 CHRISTINA SIMPSON APRN Ot R35.0 FREQUENCY OF MICTURITION 09/25/2019 CHRISTINA SIMPSON APRN Ot R35.1 NOCTURIA 09/25/2019 CHRISTINA SIMPSON APRN Ot D64.9 ANEMIA, UNSPECIFIED 09/25/2019 CHRISTINA SIMPSON APRN Ot 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 09/25/2019 CHRISTINA SIMPSON APRN Ot E27.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 09/25/2019 CHRISTINA SIMPSON APRN Ot E55.9 VITAMIN D DEFICIENCY, UNSPECIFIED 09/25/2019 [facility] APRN Ot E79.0 HYPERURICEMIA W/O SIGNS OF INFLAM ARTHRI 09/25/2019 CHRISTINA SIMPSON APRN Ot I12.9 HYPERTENSIVE CHRONIC KIDNEY DISEASE W ST 09/25/2019 CHRISTINA SIMPSON APRN Ot N18.3 CHRONIC KIDNEY DISEASE, STAGE 3 (MODERAT 09/25/2019 CHRISTINA SIMPSON APRN Ot N28.1 CYST OF KIDNEY, ACQUIRED 09/25/2019 CHRISTINA SIMPSON APRN Ot R06.09 OTHER FORMS OF DYSPNEA 09/25/2019 CHRISTINA SIMPSON APRN Ot R35.0 FREQUENCY OF MICTURITION 09/25/2019 CHRISTINA SIMPSON APRN Ot R35.1 NOCTURIA 09/25/2019 CHRISTINA SIMPSON APRN Ot R52 PAIN, UNSPECIFIED 09/25/2019 CHRISTINA SIMPSON APRN Ot R60.9 EDEMA, UNSPECIFIED 09/28/2019 MILTON WHITE, HOWARD R Ot E11.2 2 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 09/28/2019 MILTON WHITE, HOWARD R Ot E11.4 0 TYPE 2 DIABETES MELLITUS WITH DIABETIC N 09/28/2019 MILTON WHITE, HOWARD R Ot E66.9 OBESITY, UNSPECIFIED 09/28/2019 MILTON WHITE, HOWARD R Ot E78.5 HYPERLIPIDEMIA, UNSPECIFIED 09/28/2019 MILTON WHITE, HOWARD R Ot E87.5 HYPERKALEMIA 09/28/2019 MILTON WHITE, HOWARD R Ot F03.9 0 UNSPECIFIED DEMENTIA WITHOUT BEHAVIORAL 09/28/2019 MILTON WHITE, HOWARD R Ot G47.3 3 OBSTRUCTIVE SLEEP APNEA (ADULT) (PEDIATR 09/28/2019 MILTON WHITE, HOWARD Hilton Ot H26.9 UNSPECIFIED CATARACT 09/28/2019 HOWARD ROSE MD Ot I12.9 HYPERTENSIVE CHRONIC KIDNEY DISEASE W ST 09/28/2019 HOWARD ROSE MD Ot I16.0 HYPERTENSIVE URGENCY 09/28/2019 HOWARD ROSE MD Ot I25.1 0 ATHSCL HEART DISEASE OF [place] CORONARY 09/28/2019 MILTON WHITE, HOWARD Hilton Ot J44.1 CHRONIC OBSTRUCTIVE PULMONARY DISEASE W 09/28/2019 HOWARD ROSE MD R Ot J96.2 1 ACUTE AND CHRONIC RESPIRATORY FAILURE [place] 09/28/2019 HOWARD ROSE MD Ot M19.9 0 UNSPECIFIED OSTEOARTHRITIS, UNSPECIFIED 09/28/2019 HOWARD ROSE MD Ot N17.9 ACUTE KIDNEY FAILURE, UNSPECIFIED 09/28/2019 HOWARD ROSE MD Ot Z68.4 1 BODY MASS INDEX (BMI) 40.0-44.9, ADULT 09/28/2019 HOWARD ROSE MD Ot Z79.4 RESIDENTIAL (CURRENT) USE OF INSULIN 09/28/2019 HOWARD ROSE MD Ot Z79.8 2 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 09/28/2019 HOWARD ROSE MD Ot Z87.8 91 PERSONAL HISTORY OF NICOTINE DEPENDENCE 10/14/2019 HOWARD ROSE MD Ot E11.2 2 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 10/14/2019 HOWARD ROSE MD Ot E11.4 0 TYPE 2 DIABETES MELLITUS WITH DIABETIC N 10/14/2019 HOWARD ROSE MD Ot E66.9 OBESITY, UNSPECIFIED 10/14/2019 HOWARD ROSE MD Ot E78.5 HYPERLIPIDEMIA, UNSPECIFIED 10/14/2019 HOWARD ROSE MD Ot E87.5 HYPERKALEMIA 10/14/2019 HOWARD ROSE MD Ot F03.9 0 UNSPECIFIED DEMENTIA WITHOUT BEHAVIORAL 10/14/2019 HOWARD ROSE MD Ot G47.3 3 OBSTRUCTIVE SLEEP APNEA (ADULT) (PEDIATR 10/14/2019 HOWARD ROSE MD Ot H26.9 UNSPECIFIED CATARACT 10/14/2019 HOWARD ROSE MD Ot I12.9 HYPERTENSIVE CHRONIC KIDNEY DISEASE W ST 10/14/2019 HOWARD ROSE MD Ot I16.0 HYPERTENSIVE URGENCY 10/14/2019 HOWARD ROSE MD R Ot I25.1 0 ATHSCL HEART DISEASE OF [place] CORONARY 10/14/2019 HOWARD ROSE MD Ot J44.1 CHRONIC OBSTRUCTIVE PULMONARY DISEASE W 10/14/2019 HOWARD ROSE MD Ot J96.2 1 ACUTE AND CHRONIC RESPIRATORY FAILURE [place] 10/14/2019 HOWARD ROSE MD Ot M19.9 0 UNSPECIFIED OSTEOARTHRITIS, UNSPECIFIED 10/14/2019 HOWARD ROSE MD R Ot N17.9 ACUTE KIDNEY FAILURE, UNSPECIFIED 10/14/2019 MILTON WHITE, HOWARD R Ot Z68.4 1 BODY MASS INDEX (BMI) 40.0-44.9, ADULT 10/14/2019 HOWARD ROSE MD Ot Z79.4 ICT BUSINESS ANALYST (CURRENT) USE OF INSULIN 10/14/2019 HOWARD ROSE MD Ot Z79.8 2 RESIDENTIAL (CURRENT) USE OF ASPIRIN 10/14/2019 HOWARD ROSE MD Ot Z87.8 91 PERSONAL HISTORY OF NICOTINE DEPENDENCE 10/14/2019 HOWARD ROSE MD Ot E11.2 2 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 10/14/2019 HOWARD ROSE MD Ot E11.4 0 TYPE 2 DIABETES MELLITUS WITH DIABETIC N 10/14/2019 HOWARD ROSE MD Ot E66.9 OBESITY, UNSPECIFIED 10/14/2019 HOWARD ROSE MD Ot E78.5 HYPERLIPIDEMIA, UNSPECIFIED 10/14/2019 HOWARD ROSE MD Ot E87.5 HYPERKALEMIA 10/14/2019 HOWARD ROSE MD Ot F03.9 0 UNSPECIFIED DEMENTIA WITHOUT BEHAVIORAL 10/14/2019 HOWARD ROSE MD Ot G47.3 3 OBSTRUCTIVE SLEEP APNEA (ADULT) (PEDIATR 10/14/2019 HOWARD ROSE MD Ot H26.9 UNSPECIFIED CATARACT 10/14/2019 HOWRAD ROSE MD Ot I12.9 HYPERTENSIVE CHRONIC KIDNEY DISEASE W ST 10/14/2019 HOWARD ROSE MD Ot I16.0 HYPERTENSIVE URGENCY 10/14/2019 HOWARD ROSE MD Ot I25.1 0 ATHSCL HEART DISEASE OF [place] CORONARY 10/14/2019 HOWARD ROSE MD Ot J44.1 CHRONIC OBSTRUCTIVE PULMONARY DISEASE W 10/14/2019 HOWARD ROSE MD R Ot J96.2 1 ACUTE AND CHRONIC RESPIRATORY FAILURE [place] 10/14/2019 HOWARD ROSE MD R Ot M19.9 0 UNSPECIFIED OSTEOARTHRITIS, UNSPECIFIED 10/14/2019 HOWARD ROSE MD R Ot N17.9 ACUTE KIDNEY FAILURE, UNSPECIFIED 10/14/2019 HOWARD ROSE MD R Ot Z68.4 1 BODY MASS INDEX (BMI) 40.0-44.9, ADULT 10/14/2019 HOWARD ROSE MD R Ot Z79.4 RESIDENTIAL (CURRENT) USE OF INSULIN 10/14/2019 HOWARD ROES MD Ot Z79.8 2 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 10/14/2019 HOWARD ROSE MD Ot Z87.8 91 PERSONAL HISTORY OF NICOTINE DEPENDENCE 10/14/2019 HOWARD ROSE MD Ot E11.2 2 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 10/14/2019 HOWARD ROSE MD Ot E11.4 0 TYPE 2 DIABETES MELLITUS WITH DIABETIC N 10/14/2019 HOWARD ROSE MD R Ot E66.9 OBESITY, UNSPECIFIED 10/14/2019 HOWARD ROSE MD R Ot E78.5 HYPERLIPIDEMIA, UNSPECIFIED 10/14/2019 HOWARD ROSE MD R Ot E87.5 HYPERKALEMIA 10/14/2019 HOWARD ROSE MD R Ot F03.9 0 UNSPECIFIED DEMENTIA WITHOUT BEHAVIORAL 10/14/2019 HOWARD ROSE MD R Ot G47.3 3 OBSTRUCTIVE SLEEP APNEA (ADULT) (PEDIATR 10/14/2019 HOWARD ROSE MD R Ot H26.9 UNSPECIFIED CATARACT 10/14/2019 HOWARD ROSE MD Ot I12.9 HYPERTENSIVE CHRONIC KIDNEY DISEASE W ST 10/14/2019 HOWARD ROSE MD R Ot I16.0 HYPERTENSIVE URGENCY 10/14/2019 HOWARD ROSE MD R Ot I25.1 0 ATHSCL HEART DISEASE OF [place] CORONARY 10/14/2019 HOWARD ROSE MD Ot J44.1 CHRONIC OBSTRUCTIVE PULMONARY DISEASE W 10/14/2019 HOWARD ROSE MD R Ot J96.2 1 ACUTE AND CHRONIC RESPIRATORY FAILURE [place] 10/14/2019 HOWARD ROSE MD R Ot M19.9 0 UNSPECIFIED OSTEOARTHRITIS, UNSPECIFIED 10/14/2019 HOAWRD ROSE MD Ot N17.9 ACUTE KIDNEY FAILURE, UNSPECIFIED 10/14/2019 HOWARD ROSE MD Ot Z68.4 1 BODY MASS INDEX (BMI) 40.0-44.9, ADULT 10/14/2019 HOWARD ROSE MD Ot Z79.4 ICT BUSINESS ANALYST (CURRENT) USE OF INSULIN 10/14/2019 HOWARD ROSE MD Ot Z79.8 2 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 10/14/2019 HOWARD ROSE MD Ot Z87.8 91 PERSONAL HISTORY OF NICOTINE DEPENDENCE 10/14/2019 HOWARD ROSE MD Ot E11.2 2 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 10/14/2019 HOWARD ROSE MD Ot E11.4 0 TYPE 2 DIABETES MELLITUS WITH DIABETIC N 10/14/2019 HOWARD ROSE MD Ot E66.9 OBESITY, UNSPECIFIED 10/14/2019 HOWARD ROSE MD Ot E78.5 HYPERLIPIDEMIA, UNSPECIFIED 10/14/2019 HOWARD ROSE MD Ot E87.5 HYPERKALEMIA 10/14/2019 HOWARD ROSE MD Ot F03.9 0 UNSPECIFIED DEMENTIA WITHOUT BEHAVIORAL 10/14/2019 HOWARD ROSE MD Ot G47.3 3 OBSTRUCTIVE SLEEP APNEA (ADULT) (PEDIATR 10/14/2019 HOWARD ROSE MD Ot H26.9 UNSPECIFIED CATARACT 10/14/2019 HOWARD ROSE MD Ot I12.9 HYPERTENSIVE CHRONIC KIDNEY DISEASE W ST 10/14/2019 HOWARD ROSE MD Ot I16.0 HYPERTENSIVE URGENCY 10/14/2019 HOWARD ROSE MD Ot I25.1 0 ATHSCL HEART DISEASE OF [place] CORONARY 10/14/2019 HOWARD ROSE MD Ot J44.1 CHRONIC OBSTRUCTIVE PULMONARY DISEASE W 10/14/2019 HOWARD ROSE MD Ot J96.2 1 ACUTE AND CHRONIC RESPIRATORY FAILURE [place] 10/14/2019 HOWARD ROSE MD Ot M19.9 0 UNSPECIFIED OSTEOARTHRITIS, UNSPECIFIED 10/14/2019 HOWARD ROSE MD Ot N17.9 ACUTE KIDNEY FAILURE, UNSPECIFIED 10/14/2019 HOWARD ROSE MD Ot Z68.4 1 BODY MASS INDEX (BMI) 40.0-44.9, ADULT 10/14/2019 HOWARD ROSE MD, Ot Z79.4 RESIDENTIAL (CURRENT) USE OF INSULIN 10/14/2019 HOWARD ROSE MD, Ot Z79.8 2 RESIDENTIAL (CURRENT) USE OF ASPIRIN 10/14/2019 HOWARD ROSE MD, Ot Z87.8 91 PERSONAL HISTORY OF NICOTINE DEPENDENCE Procedures Code Description [place] [address] ROUT INE VENIPUNCTURE 07/07/2012 24875 A1C (IN-HOUSE) 07/07/2012 30053 URIN E DRUG SCREEN (IN-HOUSE) 07/07/2012 05866 MICR O ALBUMIN-IN HOUSE 07/07/2012 88957 CMP 07/07/2012 48338 LIPI D PANEL 07/07/2012 [id number] GF R CALC (RESULT ONLY) 07/07/2012 68626 CPK 07/08/2012 85668 ROUT INE VENIPUNCTURE 10/13/2012 52051 A1C (IN-HOUSE) 10/13/2012 08609 MICR O ALBUMIN-IN HOUSE 10/13/2012 92552 CMP 10/13/2012 [id number] GF R CALC (RESULT ONLY) 10/13/2012 01990 HEMOCCULT 10/20/2012 31737 HEMOCCULT 10/20/2012 78017 EXCI AVI BENIGN LESION 2.1-3 cm (specify location in [facility] description) 10/31/2012 38126 ROUT INE VENIPUNCTURE 01/16/2013 89308 A1C (IN-HOUSE) 01/16/2013 66898 CMP 01/16/2013 08655 LIPI D PANEL 01/16/2013 75114 MICR O ALBUMIN-IN HOUSE 05/12/2013 77198 A1C (IN-HOUSE) 05/12/2013 68204 A1C (IN-HOUSE) 10/20/2013 40806 ROUT INE VENIPUNCTURE 12/29/2013 31969 CMP 12/29/2013 74712 LIPI D PANEL 12/29/2013 67045 CBC 12/29/2013 29073 A1C (IN-HOUSE) 02/21/2014 73964 HEMOCCULT 04/16/2014 73662 A1C (IN-HOUSE) 06/25/2014 31788 MICR O ALBUMIN-IN HOUSE 06/25/2014 Results Test Result Range CBC With Differential/Platelet - 6 09:22 WBC 7.4 x10E3/uL 3.4-10.8 RBC 4.92 x10E6/uL 4.14-5.80 Hemoglobin 14.1 g/dL 12.6-17.7 Hematocrit 42.8 % 37.5-51.0 MCV 87 fL 79-97 MCH 28.7 pg 26.6-33.0 MCHC 32.9 g/dL 31.5-35.7 RDW 14.2 % 12.3-15.4 Platelets 196 x10E3/uL 150-379 Neutrophils 60 % Lymphs 30 % Monocytes 6 % Eos 3 % Basos 1 % Neutrophils (Absolute) 4.4 x10E3/uL 1.4- 7.0 Lymphs (Absolute) 2.2 x10E3/uL 0.7-3.1 Monocytes(Absolute) 0.4 x10E3/uL 0.1-0.9 Eos (Absolute) 0.2 x10E3/uL 0.0-0.4 Baso (Absolute) 0.1 x10E3/uL 0.0-0.2 Immature Granulocytes 0 % Immature Grans (Abs) 0.0 x10E3/uL 0.0-0. 1 Comp. Metabolic Panel (14) - 05/15/16 09 :22 Glucose, Serum 305 mg/dL 65-99 BUN 22 [...] mg/dL 0-99 Complete blood count (CBC) with automate d white blood cell (WBC) differential - 01/05/17 18:13 Blood leukocytes automated count (number/volume) 8.3 10*3/uL 4.3-11.0 Blood erythrocytes automated count (number/volume) 4.46 10*6/uL 4.35-5.85 Venous blood hemoglobin measurement (mass/volume) 12.5 g/dL 13.3-17.7 Blood hematocrit (volume fraction) 38 % 40-54 Automated erythrocyte mean corpuscular volume 85 [ foz_us] 80-99 Automated erythrocyte mean corpuscular h emoglobin (mass per erythrocyte) 28 pg 25-34 Automated erythrocyte mean corpuscular h emoglobin concentration measurement (mass/volume) 33 g/dL 32-36 Automated erythrocyte distribution width ratio 13. 7 % 10.0- 14.5 Automated blood platelet count (count/volume) 249 10*3/uL [...] 10*3 1.0-4.0 Blood monocytes automated count (number/volume) 0. 4 10*3 0.0-1.0 Automated eosinophil count 0.2 10*3/uL 0 .0-0.3 Automated blood basophil count (count/volume) 0.1 10*3/uL 0.0-0.1 Comprehensive metabolic panel - 01/05/17 18:13 Serum or plasma sodium measurement (moles/volume) 142 mmol/L 135-145 Serum or plasma potassium measurement (moles/volume) 4.7 mmol/L 3.6-5.0 Serum or plasma chloride measurement (moles/volume) 107 mmol/L 98-107 Carbon dioxide 22 mmol/L 21-32 Serum or plasma anion gap determination (moles/volume) 13 mmol/L 5-14 Serum or plasma urea nitrogen measurement (mass/volume ) 22 mg/dL 7-18 Serum or plasma creatinine measurement (mass/volume) 1.59 mg/dL 0.60-1.30 Serum or plasma urea nitrogen/creatinine mass ratio 14 NRG Serum or plasma creatinine measurement w ith calculation of estimated glomerular filtration rate 44 NRG Serum or plasma glucose measurement (mass/volume) 145 mg/dL 70-105 Serum or plasma calcium measurement (mass/volume) 9.4 mg/dL 8.5-10.1 Serum or plasma total bilirubin measurement (mass/volu me) 0.4 mg/dL 0.1-1.0 Serum or plasma alkaline phosphatase justin surement (enzymatic activity/volume) 71 U/L 40-136 Serum or plasma aspartate aminotransfera se measurement (enzymatic activity/volume) 23 U/L 5-34 Serum or plasma alanine aminotransferase measurement (enzymatic activity/volume) 17 U/L 0-55 Serum or plasma protein measurement (mass/volume) 6.8 g/dL 6.4-8.2 Serum or plasma albumin measurement (mass/volume) 3.8 g/dL 3.2-4.5 Magnesium - 01/05/17 18:13 Magnesium 2.0 mg/dL 1.8-2.4 PT panel in platelet poor plasma by coag ulation assay - 01/05/17 18:13 Prothrombin time (PT) in platelet poor plasma by coagu lation assay 14.6 s 12.2-14.7 INR in platelet poor plasma or blood by coagulation as say 1.2 0.8-1.4 Activated partial thromboplastin time (a PTT) in platelet poor plasma bycoagulation assay - 01/05/17 18:13 Activated partial thromboplastin time (a PTT) in platelet poor plasma bycoagulation assay 31 [...] g/dL 6.0-8.3 Complete urinalysis with reflex to cultu re - 06/06/17 11:59 Urine color determination YELLOW NRG Urine clarity determination CLEAR NR G Urine pH measurement by test strip 6 5-9 Specific gravity of urine by test strip 1.020 1.016-1.022 Urine protein assay by test strip, semi-quantitative 1+ NEGATIVE Urine glucose detection by automated test strip 2+ NEGATIVE Erythrocytes detection in urine sediment by light micr oscopy NEGATIVE NEGATIVE Urine ketones detection by automated test strip NE GATIVE NEGATIVE Urine nitrite detection by test strip NEGATIVE NEGATIVE Urine total bilirubin detection by test strip NEGA TIVE NEGATIVE Urine urobilinogen measurement by automated test strip (mass/volume) NORMAL NORMAL Urine leukocyte esterase detection by dipstick NEG ATIVE NEGATIVE Automated urine sediment erythrocyte cou nt by microscopy (number/high power field) NONE NRG Automated urine sediment leukocyte count by microscopy (number/high power field) RARE NRG Bacteria detection in urine sediment by light microsco py NEGATIVE NRG Squamous epithelial cells detection in u rine sediment by light microscopy 5-10 NRG Crystals detection in urine sediment by light microsco py NONE NRG Casts detection in urine sediment by light microscopy NONE NRG Mucus detection in urine sediment by light microscopy NEGATIVE NRG Complete urinalysis with reflex to culture NO NRG [id number] - 09/24/17 13:23 Serum or plasma urea nitrogen measurement (mass/volume ) 25 mg/dL 7-18 Serum or plasma creatinine measurement (mass/volume) 1.33 mg/dL 0.60-1.30 Serum or plasma urea nitrogen/creatinine mass ratio 19 NRG Serum or plasma creatinine measurement w ith calculation of estimated glomerular filtration rate 54 NRG Influenza virus A and B antigen detectio n - 11/07/17 21:25 FLU RESULT NEGATIVE FOR INFLUENZA A AND B ANTIGENS BY IA NR Complete blood count (CBC) with automate d white blood cell (WBC) differential - 04/20/18 12:15 Blood leukocytes automated count (number/volume) 6.8 10*3/uL 4.3-11.0 Blood erythrocytes automated count (number/volume) 3.93 10*6/uL 4.35-5.85 Venous blood hemoglobin measurement (mass/volume) 11.3 g/dL 13.3-17.7 Blood hematocrit (volume fraction) 35 % 40-54 Automated erythrocyte mean corpuscular volume 88 [ foz_us] 80-99 Automated erythrocyte mean corpuscular h emoglobin (mass per erythrocyte) 29 pg 25-34 Automated erythrocyte mean corpuscular h emoglobin concentration measurement (mass/volume) 33 g/dL 32-36 Automated erythrocyte distribution width ratio 14. 9 % 10.0- 14.5 Automated blood platelet count (count/volume) 163 10*3/uL 130-400 Automated blood platelet mean volume measurement 11.5 [foz_us] 7.4-10.4 Automated blood neutrophils/100 leukocytes 71 % 42-75 Automated blood lymphocytes/100 leukocytes 19 % 12-44 Blood monocytes/100 leukocytes 8 % 0-12 Automated blood eosinophils/100 leukocytes 2 % 0-10 Automated blood basophils/100 leukocytes 1 % 0-10 Blood neutrophils automated count (number/volume) 4.8 10*3 1.8-7.8 Blood lymphocytes automated count (number/volume) 1.3 10*3 1.0-4.0 Blood monocytes automated count (number/volume) 0. 5 10*3 0.0-1.0 Automated eosinophil count 0.1 10*3/uL 0 .0-0.3 Automated blood basophil count (count/volume) 0.1 10*3/uL 0.0-0.1 PT panel in platelet poor plasma by coag ulation assay - 04/20/18 12:15 Prothrombin time (PT) in platelet poor plasma by coagu lation assay 14.9 s 12.2-14.7 INR in platelet poor plasma or blood by coagulation as say 1.2 0.8-1.4 Activated partial thromboplastin time (a PTT) in platelet poor plasma bycoagulation assay - 04/20/18 12:15 Activated partial thromboplastin time (a PTT) in platelet poor plasma bycoagulation assay 28 s 24-35 Comprehensive metabolic panel - 04/20/18 12:15 Serum or plasma sodium measurement (moles/volume) 135 mmol/L 135-145 Serum or plasma potassium measurement (moles/volume) 5.4 mmol/L 3.6-5.0 Serum or plasma chloride measurement (moles/volume) 103 mmol/L 98-107 Carbon dioxide 23 mmol/L 21-32 Serum or plasma anion gap determination (moles/volume) 9 mmol/L 5-14 Serum or plasma urea nitrogen measurement (mass/volume ) 28 mg/dL 7-18 Serum or plasma creatinine measurement (mass/volume) 1.49 mg/dL 0.60-1.30 Serum or plasma urea nitrogen/creatinine mass ratio 19 NRG Serum or plasma creatinine measurement w ith calculation of estimated glomerular filtration rate 47 NRG Serum or plasma glucose measurement (mass/volume) 331 mg/dL 70-105 Serum or plasma calcium measurement (mass/volume) 8.7 mg/dL 8.5-10.1 Serum or plasma total bilirubin measurement (mass/volu me) 0.8 mg/dL 0.1-1.0 Serum or plasma alkaline phosphatase justin surement (enzymatic activity/volume) 59 U/L 40-136 Serum or plasma aspartate aminotransfera se measurement (enzymatic activity/volume) 25 U/L 5-34 Serum or plasma alanine aminotransferase measurement (enzymatic activity/volume) 28 U/L 0-55 Serum or plasma protein measurement (mass/volume) 6.5 g/dL 6.4-8.2 Serum or plasma albumin measurement (mass/volume) 3.9 g/dL 3.2-4.5 CALCIUM CORRECTED 8.8 mg/dL 8.5-10.1 Magnesium - 04/20/18 12:15 Magnesium 2.4 mg/dL 1.8-2.4 Serum or plasma troponin i.cardiac measu rement (mass/volume) - 04/20/18 12:15 Serum or plasma troponin i.cardiac measurement (mass/v olume) < ng/mL <0.30 Serum or plasma lithium measurement (mol es/volume) - 04/20/18 12:15 BNP level 394.3 pg/mL <100.0 Myoglobin, serum - 04/20/18 12:15 Myoglobin, serum 170.9 ng/mL 10.0-92.0 Lipase - 04/20/18 12:15 Lipase 18 U/L 8-78 Capillary blood glucose measurement by g lucometer (mass/volume) - 04/20/18 17:10 Capillary blood glucose measurement by glucometer (mas s/volume) 230 mg/dL 70-110 Capillary blood glucose measurement by g lucometer (mass/volume) - 04/20/18 20:26 Capillary blood glucose measurement by glucometer (mas s/volume) 186 mg/dL 70-110 Capillary blood glucose measurement by g lucometer (mass/volume) - 04/21/18 05:18 Capillary blood glucose measurement by glucometer (mas s/volume) 140 mg/dL 70-110 Blood CBC with ordered manual differenti al panel - 04/21/18 05:20 Blood leukocytes automated count (number/volume) 6.7 10*3/uL 4.3-11.0 Blood erythrocytes automated count (number/volume) 3.86 10*6/uL 4.35-5.85 Venous blood hemoglobin measurement (mass/volume) 10.9 g/dL 13.3-17.7 Blood hematocrit (volume fraction) 33 % 40-54 Automated erythrocyte mean corpuscular volume 86 [ foz_us] 80-99 Automated erythrocyte mean corpuscular h emoglobin (mass per erythrocyte) 28 pg 25-34 Automated erythrocyte mean corpuscular h emoglobin concentration measurement (mass/volume) 33 g/dL 32-36 Automated erythrocyte distribution width ratio 14. 6 % 10.0- 14.5 Automated blood platelet count (count/volume) 154 10*3/uL 130-400 Automated blood platelet mean volume measurement 11.2 [foz_us] 7.4-10.4 Automated blood neutrophils/100 leukocytes 64 % 42-75 Automated blood lymphocytes/100 leukocytes 25 % 12-44 Blood monocytes/100 leukocytes 3 % NRG Automated blood eosinophils/100 leukocytes 2 % 0-10 Automated blood basophils/100 leukocytes 0 % 0-10 Blood neutrophils automated count (number/volume) 4.3 10*3 1.8-7.8 Blood lymphocytes automated count (number/volume) 1.7 10*3 1.0-4.0 Blood monocytes automated count (number/volume) 0. 6 10*3 0.0-1.0 Automated eosinophil count 0.2 10*3/uL 0 .0-0.3 Automated blood basophil count (count/volume) 0.0 10*3/uL 0.0-0.1 Manual blood segmented neutrophils/100 leukocytes 63 % NRG Blood band neutrophils/100 leukocytes 0 % NRG Manual blood lymphocytes/100 leukocytes 32 % NRG Manual eosinophils/100 leukocytes in nose 2 % NRG Manual blood basophils/100 leukocytes 0 % NRG Blood polychromasia detection by light microscopy SLIGHT NRG Blood anisocytosis detection by light microscopy S LIGHT NRG Blood rouleaux detection by light microscopy SLIGH T NRG Whole blood basic metabolic panel - 04/09 10/24 05:20 Serum or plasma sodium measurement (moles/volume) 137 mmol/L 135-145 Serum or plasma potassium measurement (moles/volume) 4.6 mmol/L 3.6-5.0 Serum or plasma chloride measurement (moles/volume) 104 mmol/L 98-107 Carbon dioxide 22 mmol/L 21-32 Serum or plasma anion gap determination (moles/volume) 11 mmol/L 5-14 Serum or plasma urea nitrogen measurement (mass/volume ) 27 mg/dL 7-18 Serum or plasma creatinine measurement (mass/volume) 1.25 mg/dL 0.60-1.30 Serum or plasma urea nitrogen/creatinine mass ratio 22 NRG Serum or plasma creatinine measurement w ith calculation of estimated glomerular filtration rate 58 NRG Serum or plasma glucose measurement (mass/volume) 133 mg/dL 70-105 Serum or plasma calcium measurement (mass/volume) 8.7 mg/dL 8.5-10.1 Serum or plasma troponin i.cardiac measu rement (mass/volume) - 04/21/18 05:20 Serum or plasma troponin i.cardiac measurement (mass/v olume) < ng/mL <0.30 Lipid 1996 panel - 04/21/18 05:20 Serum or plasma triglyceride measurement (mass/volume) 137 mg/dL <150 Serum or plasma cholesterol measurement (mass/volume) 120 mg/dL < 200 Serum or plasma cholesterol in HDL measurement (mass/v olume) 27 mg/dL 40-60 Cholesterol in LDL [mass/volume] in serum or plasma by direct assay 71 mg/dL 1-129 Serum or plasma cholesterol in VLDL measurement (mass/ volume) 27 mg/dL 5-40 Capillary blood glucose measurement by g lucometer (mass/volume) - 04/21/18 10:02 Capillary blood glucose measurement by glucometer (mas s/volume) 168 mg/dL 70-110 Capillary blood glucose measurement by g lucometer (mass/volume) - 04/21/18 15:45 Capillary blood glucose measurement by glucometer (mas s/volume) 255 mg/dL 70-110 Capillary blood glucose measurement by g lucometer (mass/volume) - 04/21/18 21:06 Capillary blood glucose measurement by glucometer (mas s/volume) 212 mg/dL 70-110 Capillary blood glucose measurement by g lucometer (mass/volume) - 04/22/18 05:18 Capillary blood glucose measurement by glucometer (mas s/volume) 288 mg/dL 70-110 Automated blood complete blood count (he mogram) panel - 04/22/18 05:35 Blood leukocytes automated count (number/volume) 7.3 10*3/uL 4.3-11.0 Blood erythrocytes automated count (number/volume) 4.08 10*6/uL 4.35-5.85 Venous blood hemoglobin measurement (mass/volume) 11.7 g/dL 13.3-17.7 Blood hematocrit (volume fraction) 34 % 40-54 Automated erythrocyte mean corpuscular volume 83 [ foz_us] 80-99 Automated erythrocyte mean corpuscular h emoglobin (mass per erythrocyte) 29 pg 25-34 Automated erythrocyte mean corpuscular h emoglobin concentration measurement (mass/volume) 34 g/dL 32-36 Automated erythrocyte distribution width ratio 13. 8 % 10.0- 14.5 Automated blood platelet count (count/volume) 170 10*3/uL 130-400 Automated blood platelet mean volume measurement 11.1 [foz_us] 7.4-10.4 Whole blood basic metabolic panel - 04/09 11/24 05:35 Serum or plasma sodium measurement (moles/volume) 132 mmol/L 135-145 Serum or plasma potassium measurement (moles/volume) 5.0 mmol/L 3.6-5.0 Serum or plasma chloride measurement (moles/volume) 102 mmol/L 98-107 Carbon dioxide 21 mmol/L 21-32 Serum or plasma anion gap determination (moles/volume) 9 mmol/L 5-14 Serum or plasma urea nitrogen measurement (mass/volume ) 30 mg/dL 7-18 Serum or plasma creatinine measurement (mass/volume) 1.35 mg/dL 0.60-1.30 Serum or plasma urea nitrogen/creatinine mass ratio 22 NRG Serum or plasma creatinine measurement w ith calculation of estimated glomerular filtration rate 53 NRG Serum or plasma glucose measurement (mass/volume) 295 mg/dL 70-105 Serum or plasma calcium measurement (mass/volume) 9.0 mg/dL 8.5-10.1 Serum or plasma lithium measurement (mol es/volume) - 04/22/18 05:35 BNP level 325.9 pg/mL <100.0 Capillary blood glucose measurement by g lucometer (mass/volume) - 04/22/18 11:02 Capillary blood glucose measurement by glucometer (mas s/volume) 279 mg/dL 70-110 Complete urinalysis with reflex to cultu re - 05/19/18 10:10 Urine color determination YELLOW NRG Urine clarity determination CLEAR NR G Urine pH measurement by test strip 5 5-9 Specific gravity of urine by test strip 1.015 1.016-1.022 Urine protein assay by test strip, semi-quantitative NEGATIVE NEGATIVE Urine glucose detection by automated test strip 1+ NEGATIVE Erythrocytes detection in urine sediment by light micr oscopy NEGATIVE NEGATIVE Urine ketones detection by automated test strip NE GATIVE NEGATIVE Urine nitrite detection by test strip NEGATIVE NEGATIVE Urine total bilirubin detection by test strip NEGA TIVE NEGATIVE Urine urobilinogen measurement by automated test strip (mass/volume) NORMAL NORMAL Urine leukocyte esterase detection by dipstick NEG ATIVE NEGATIVE Automated urine sediment erythrocyte cou nt by microscopy (number/high power field) NONE NRG Automated urine sediment leukocyte count by microscopy (number/high power field) NONE NRG Bacteria detection in urine sediment by light microsco py TRACE NRG Squamous epithelial cells detection in u rine sediment by light microscopy 0-2 NRG Crystals detection in urine sediment by light microsco py NONE NRG Casts detection in urine sediment by light microscopy NONE NRG Mucus detection in urine sediment by light microscopy NEGATIVE NRG Complete urinalysis with reflex to culture NO NRG Urine protein/creatinine mass ratio - 10:10 Urine protein measurement (mass/volume) 7 mg/dL 6-12 Urine creatinine measurement (mass/volume) 85 mg/d L 30-125 Urine protein/creatinine mass ratio 0.08 NR Automated blood complete blood count (he mogram) panel - 05/19/18 10:24 Blood leukocytes automated count (number/volume) 6.4 10*3/uL 4.3-11.0 Blood erythrocytes automated count (number/volume) 4.66 10*6/uL 4.35-5.85 Venous blood hemoglobin measurement (mass/volume) 13.0 g/dL 13.3-17.7 Blood hematocrit (volume fraction) 39 % 40-54 Automated erythrocyte mean corpuscular volume 84 [ foz_us] 80-99 Automated erythrocyte mean corpuscular h emoglobin (mass per erythrocyte) 28 pg 25-34 Automated erythrocyte mean corpuscular h emoglobin concentration measurement (mass/volume) 33 g/dL 32-36 Automated erythrocyte distribution width ratio 14. 5 % 10.0- 14.5 Automated blood platelet count (count/volume) 221 10*3/uL 130-400 Automated blood platelet mean volume measurement 10.0 [foz_us] 7.4-10.4 Serum or plasma renal function panel (Na , K, Cl, CO2, BUN, Cr, glucose,Ca, phos, alb) - 05/19/18 10:24 Serum or plasma sodium measurement (moles/volume) 136 mmol/L 135-145 Serum or plasma potassium measurement (moles/volume) 4.7 mmol/L 3.6-5.0 Serum or plasma chloride measurement (moles/volume) 104 mmol/L 98-107 Carbon dioxide 20 mmol/L 21-32 Serum or plasma anion gap determination (moles/volume) 12 mmol/L 5-14 Serum or plasma urea nitrogen measurement (mass/volume ) 30 mg/dL 7-18 Serum or plasma creatinine measurement (mass/volume) 1.60 mg/dL 0.60-1.30 Serum or plasma urea nitrogen/creatinine mass ratio 19 NRG Serum or plasma creatinine measurement w ith calculation of estimated glomerular filtration rate 43 NRG Serum or plasma glucose measurement (mass/volume) 192 mg/dL 70-105 Serum or plasma calcium measurement (mass/volume) 9.0 mg/dL 8.5-10.1 Serum or plasma albumin measurement (mass/volume) 4.2 g/dL 3.2-4.5 Serum or plasma phosphate measurement (mass/volume) 4.4 mg/dL 2.3-4.7 Serum or plasma uric acid measurement (m ass/volume) - 05/19/18 10:24 Serum or plasma uric acid measurement (mass/volume) 6.6 mg/dL 2.6-7.2 Lipid 1996 panel - 05/19/18 10:24 Serum or plasma triglyceride measurement (mass/volume) 188 mg/dL <150 Serum or plasma cholesterol measurement (mass/volume) 132 mg/dL < 200 Serum or plasma cholesterol in HDL measurement (mass/v olume) 27 mg/dL 40-60 Cholesterol in LDL [mass/volume] in serum or plasma by direct assay 65 mg/dL 1-129 Serum or plasma cholesterol in VLDL measurement (mass/ volume) 38 mg/dL 5-40 Serum iron and total iron binding capaci ty panel - 05/19/18 10:24 Serum or plasma iron measurement (mass/volume) 66 % 40-180 Total iron binding capacity and transferrin saturation measurement 20 % 15-50 Iron binding capacity [mass/volume] in serum or plasma 337 % 280-380 UIBC (unsaturated iron binding capacity) 271 % 55-450 Serum or plasma ferritin measurement (mass/volume) 121.0 % 32.0-356.0 Serum or plasma intact pararthyroid horm one measurement (mass/volume) - 05/19/18 10:24 Serum or plasma intact parathyroid hormone measurement (mass/volume) 85.2 pg/mL 9.0-77.0 Bio-intact parathyroid hormone (PTH) measurement with calcium 8.8 % 8.5-10.5 VITAMIN D 25-HYDROXY - 05/19/18 10:24 VITAMIN D 25-HYDROXY (TOTAL) 21.9 % 3 0.0-100.0 Automated blood complete blood count (he mogram) panel - 09/13/18 13:30 Blood leukocytes automated count (number/volume) 5.7 10*3/uL 4.3-11.0 Blood erythrocytes automated count (number/volume) 4.48 10*6/uL 4.35-5.85 Venous blood hemoglobin measurement (mass/volume) 13.0 g/dL 13.3-17.7 Blood hematocrit (volume fraction) 38 % 40-54 Automated erythrocyte mean corpuscular volume 85 [ foz_us] 80-99 Automated erythrocyte mean corpuscular h emoglobin (mass per erythrocyte) 29 pg 25-34 Automated erythrocyte mean corpuscular h emoglobin concentration measurement (mass/volume) 34 g/dL 32-36 Automated erythrocyte distribution width ratio 13. 8 % 10.0- 14.5 Automated blood platelet count (count/volume) 203 10*3/uL 130-400 Automated blood platelet mean volume measurement 10.2 [foz_us] 7.4-10.4 Serum or plasma renal function panel (Na , K, Cl, CO2, BUN, Cr, glucose,Ca, phos, alb) - 09/13/18 13:30 Serum or plasma sodium measurement (moles/volume) 138 mmol/L 135-145 Serum or plasma potassium measurement (moles/volume) 4.6 mmol/L 3.6-5.0 Serum or plasma chloride measurement (moles/volume) 105 mmol/L 98-107 Carbon dioxide 21 mmol/L 21-32 Serum or plasma anion gap determination (moles/volume) 12 mmol/L 5-14 Serum or plasma urea nitrogen measurement (mass/volume ) 35 mg/dL 7-18 Serum or plasma creatinine measurement (mass/volume) 1.68 mg/dL 0.60-1.30 Serum or plasma urea nitrogen/creatinine mass ratio 21 NRG Serum or plasma creatinine measurement w ith calculation of estimated glomerular filtration rate 41 NRG Serum or plasma glucose measurement (mass/volume) 239 mg/dL 70-105 Serum or plasma calcium measurement (mass/volume) 9.2 mg/dL 8.5-10.1 Serum or plasma albumin measurement (mass/volume) 4.0 g/dL 3.2-4.5 Serum or plasma phosphate measurement (mass/volume) 3.7 mg/dL 2.3-4.7 Serum or plasma uric acid measurement (m ass/volume) - 09/13/18 13:30 Serum or plasma uric acid measurement (mass/volume) 7.3 mg/dL 2.6-7.2 Magnesium - 09/13/18 13:30 Magnesium 2.0 mg/dL 1.8-2.4 Lipid 1996 panel - 09/13/18 13:30 Serum or plasma triglyceride measurement (mass/volume) 204 mg/dL <150 Serum or plasma cholesterol measurement (mass/volume) 128 mg/dL < 200 Serum or plasma cholesterol in HDL measurement (mass/v olume) 25 mg/dL 40-60 Cholesterol in LDL [mass/volume] in serum or plasma by direct assay 63 mg/dL 1-129 Serum or plasma cholesterol in VLDL measurement (mass/ volume) 41 mg/dL 5-40 Hemoglobin A1c - 09/13/18 13:30 Blood hemoglobin A1C measurement (mass/volume) 10. 3 % 4.0- 5.6 MEAN BLOOD GLUCOSE 249 % <=126 Serum iron and total iron binding capaci ty panel - 09/13/18 13:30 Serum or plasma iron measurement (mass/volume) 96 % 40-180 Total iron binding capacity and transferrin saturation measurement 31 % 15-50 Iron binding capacity [mass/volume] in serum or plasma 312 % 280-380 UIBC (unsaturated iron binding capacity) 216 % 55-450 Serum or plasma ferritin measurement (mass/volume) 121.2 % 32.0-356.0 Serum or plasma intact pararthyroid horm one measurement (mass/volume) - 09/13/18 13:30 Serum or plasma intact parathyroid hormone measurement (mass/volume) 53.8 pg/mL 9.0-77.0 Bio-intact parathyroid hormone (PTH) measurement with calcium 9.4 % 8.5-10.5 VITAMIN D 25-HYDROXY - 09/13/18 13:30 VITAMIN D 25-HYDROXY (TOTAL) 26.5 % 3 0.0-100.0 Complete urinalysis with reflex to cultu re - 09/13/18 14:20 Urine color determination YELLOW NRG Urine clarity determination CLEAR NR G Urine pH measurement by test strip 5 5-9 Specific gravity of urine by test strip 1.010 1.016-1.022 Urine protein assay by test strip, semi-quantitative NEGATIVE NEGATIVE Urine glucose detection by automated test strip NE GATIVE NEGATIVE Erythrocytes detection in urine sediment by light micr oscopy NEGATIVE NEGATIVE Urine ketones detection by automated test strip NE GATIVE NEGATIVE Urine nitrite detection by test strip NEGATIVE NEGATIVE Urine total bilirubin detection by test strip NEGA TIVE NEGATIVE Urine urobilinogen measurement by automated test strip (mass/volume) NORMAL NORMAL Urine leukocyte esterase detection by dipstick NEG ATIVE NEGATIVE Automated urine sediment erythrocyte cou nt by microscopy (number/high power field) NONE NRG Automated urine sediment leukocyte count by microscopy (number/high power field) RARE NRG Bacteria detection in urine sediment by light microsco py TRACE NRG Squamous epithelial cells detection in u rine sediment by light microscopy 2-5 NRG Crystals detection in urine sediment by light microsco py NONE NRG Casts detection in urine sediment by light microscopy PRESENT NRG Mucus detection in urine sediment by light microscopy NEGATIVE NRG Complete urinalysis with reflex to culture NO NRG Hyaline casts detection in urine sediment by light sal roscopy 5-10 NRG Urine protein/creatinine mass ratio - 14:20 Urine protein measurement (mass/volume) < mg/dL 6-12 Urine creatinine measurement (mass/volume) 65 mg/d L 30-125 Urine protein/creatinine mass ratio TNP NRG Automated blood complete blood count (he mogram) panel - 01/04/19 10:47 Blood leukocytes automated count (number/volume) 8.3 10*3/uL 4.3-11.0 Blood erythrocytes automated count (number/volume) 4.70 10*6/uL 4.35-5.85 Venous blood hemoglobin measurement (mass/volume) 13.5 g/dL 13.3-17.7 Blood hematocrit (volume fraction) 40 % 40-54 Automated erythrocyte mean corpuscular volume 85 [ foz_us] 80-99 Automated erythrocyte mean corpuscular h emoglobin (mass per erythrocyte) 29 pg 25-34 Automated erythrocyte mean corpuscular h emoglobin concentration measurement (mass/volume) 34 g/dL 32-36 Automated erythrocyte distribution width ratio 13. 4 % 10.0- 14.5 Automated blood platelet count (count/volume) 204 10*3/uL 130-400 Automated blood platelet mean volume measurement 10.6 [foz_us] 7.4-10.4 Serum or plasma renal function panel (Na , K, Cl, CO2, BUN, Cr, glucose,Ca, phos, alb) - 01/04/19 10:47 Serum or plasma sodium measurement (moles/volume) 137 mmol/L 135-145 Serum or plasma potassium measurement (moles/volume) 4.6 mmol/L 3.6-5.0 Serum or plasma chloride measurement (moles/volume) 106 mmol/L 98-107 Carbon dioxide 22 mmol/L 21-32 Serum or plasma anion gap determination (moles/volume) 9 mmol/L 5-14 Serum or plasma urea nitrogen measurement (mass/volume ) 22 mg/dL 7-18 Serum or plasma creatinine measurement (mass/volume) 1.42 mg/dL 0.60-1.30 Serum or plasma urea nitrogen/creatinine mass ratio 15 NRG Serum or plasma creatinine measurement w ith calculation of estimated glomerular filtration rate 50 NRG Serum or plasma glucose measurement (mass/volume) 198 mg/dL 70-105 Serum or plasma calcium measurement (mass/volume) 8.8 mg/dL 8.5-10.1 Serum or plasma albumin measurement (mass/volume) 3.9 g/dL 3.2-4.5 Serum or plasma phosphate measurement (mass/volume) 3.2 mg/dL 2.3-4.7 Serum or plasma uric acid measurement (m ass/volume) - 01/04/19 10:47 Serum or plasma uric acid measurement (mass/volume) 6.1 mg/dL 2.6-7.2 Hemoglobin A1c - 01/04/19 10:47 Blood hemoglobin A1C measurement (mass/volume) 12. 2 % 4.0- 5.6 MEAN BLOOD GLUCOSE 303 % <=126 Serum or plasma intact pararthyroid horm one measurement (mass/volume) - 01/04/19 10:47 Serum or plasma intact parathyroid hormone measurement (mass/volume) 66.7 pg/mL 9.0-77.0 Bio-intact parathyroid hormone (PTH) measurement with calcium 8.6 % 8.5-10.5 VITAMIN D 25-HYDROXY - 01/04/19 10:47 VITAMIN D 25-HYDROXY (TOTAL) 19.4 % 3 0.0-100.0 Complete urinalysis with reflex to cultu re - 01/04/19 10:58 Urine color determination YELLOW NRG Urine clarity determination CLEAR NR G Urine pH measurement by test strip 5 5-9 Specific gravity of urine by test strip 1.025 1.016-1.022 Urine protein assay by test strip, semi-quantitative 2+ NEGATIVE Urine glucose detection by automated test strip 2+ NEGATIVE Erythrocytes detection in urine sediment by light micr oscopy NEGATIVE NEGATIVE Urine ketones detection by automated test strip NE GATIVE NEGATIVE Urine nitrite detection by test strip NEGATIVE NEGATIVE Urine total bilirubin detection by test strip NEGA TIVE NEGATIVE Urine urobilinogen measurement by automated test strip (mass/volume) 1 mg/dL NORMAL Urine leukocyte esterase detection by dipstick 2+ NEGATIVE Automated urine sediment erythrocyte cou nt by microscopy (number/high power field) NONE NRG Automated urine sediment leukocyte count by microscopy (number/high power field) [HPF] NRG Bacteria detection in urine sediment by light microsco py FEW NRG Squamous epithelial cells detection in u rine sediment by light microscopy 10-25 NRG Crystals detection in urine sediment by light microsco py NONE NRG Casts detection in urine sediment by light microscopy NONE NRG Mucus detection in urine sediment by light microscopy NEGATIVE NRG Complete urinalysis with reflex to culture YES NRG Urine protein/creatinine mass ratio - 10:58 Urine protein measurement (mass/volume) 17 mg/dL 6-12 Urine creatinine measurement (mass/volume) 182 mg/ dL 30-125 Urine protein/creatinine mass ratio 0.09 NRG Bacterial urine culture - 01/04/19 10:58 Bacterial urine culture 3 OR MORE NRG COLONY COUNT 40,000 CFU/ML NRG FTX;REPORTABLE GRAM POSITIVES SUGGESTING PROBABLE NRG FREE TEXT ENTRY 2 COLLECTION CONTAMINATION WITH SK IN NRG FREE TEXT ENTRY 3 MICHAEL. NO SUSCEPTIBILITY PERFORM ED. NRG Influenza virus A and B antigen detectio n - 09/25/19 14:20 FLU RESULT NEGATIVE FOR INFLUENZA A AND B ANTIGENS BY IA NRG Arterial blood gas measurement - 0 14:31 Blood pCO2 39 mm[Hg] 35-45 Blood pO2 83 mm[Hg] 79-93 Arterial blood bicarbonate measurement (moles/volume) 25 mmol/L 23-27 Arterial blood base excess by calculation 1.4 mmol /L -2.5-2.5 Arterial blood oxygen saturation measurement 97 % 94-100 * Inhaled oxygen flow rate 2 L NRG Arterial blood pH measurement with patient temperature correction 7.43 7.37-7.43 Arterial blood carbon dioxide, total measurement (mole s/volume) 26.6 mmol/L 21.0-31.0 Body site LT RAD NRG Assessment of wrist artery patency prior to arterial p uncture YES-POS NRG Setting of ventilation mode NO NR G Measurement of body temperature 36.3 NRG Complete blood count (CBC) with automate d white blood cell (WBC) differential - 09/25/19 14:35 Blood leukocytes automated count (number/volume) 4.4 10*3/uL 4.3-11.0 Blood erythrocytes automated count (number/volume) 4.72 10*6/uL 4.35-5.85 Venous blood hemoglobin measurement (mass/volume) 13.2 g/dL 13.3-17.7 Blood hematocrit (volume fraction) 40 % 40-54 Automated erythrocyte mean corpuscular volume 85 [ foz_us] 80-99 Automated erythrocyte mean corpuscular h emoglobin (mass per erythrocyte) 28 pg 25-34 Automated erythrocyte mean corpuscular h emoglobin concentration measurement (mass/volume) 33 g/dL 32-36 Automated erythrocyte distribution width ratio 13. 8 % 10.0- 14.5 Automated blood platelet count (count/volume) 194 10*3/uL 130-400 Automated blood platelet mean volume measurement 10.5 [foz_us] 7.4-10.4 Automated blood neutrophils/100 leukocytes 68 % 42-75 Automated blood lymphocytes/100 leukocytes 17 % 12-44 Blood monocytes/100 leukocytes 12 % 0-12 Automated blood eosinophils/100 leukocytes 2 % 0-10 Automated blood basophils/100 leukocytes 1 % 0-10 Blood neutrophils automated count (number/volume) 3.0 10*3 1.8-7.8 Blood lymphocytes automated count (number/volume) 0.8 10*3 1.0-4.0 Blood monocytes automated count (number/volume) 0. 5 10*3 0.0-1.0 Automated eosinophil count 0.1 10*3/uL 0 .0-0.3 Automated blood basophil count (count/volume) 0.0 10*3/uL 0.0-0.1 Comprehensive metabolic panel - 09/25/19 14:35 Serum or plasma sodium measurement (moles/volume) 134 mmol/L 135-145 Serum or plasma potassium measurement (moles/volume) 4.4 mmol/L 3.6-5.0 Serum or plasma chloride measurement (moles/volume) 100 mmol/L 98-107 Carbon dioxide 25 mmol/L 21-32 Serum or plasma anion gap determination (moles/volume) 9 mmol/L 5-14 Serum or plasma urea nitrogen measurement (mass/volume ) 18 mg/dL 7-18 Serum or plasma creatinine measurement (mass/volume) 1.51 mg/dL 0.60-1.30 Serum or plasma urea nitrogen/creatinine mass ratio 12 NRG Serum or plasma creatinine measurement w ith calculation of estimated glomerular filtration rate 46 NRG Serum or plasma glucose measurement (mass/volume) 300 mg/dL 70-105 Serum or plasma calcium measurement (mass/volume) 8.8 mg/dL 8.5-10.1 Serum or plasma total bilirubin measurement (mass/volu me) 0.8 mg/dL 0.1-1.0 Serum or plasma alkaline phosphatase justin surement (enzymatic activity/volume) 80 U/L 40-136 Serum or plasma aspartate aminotransfera se measurement (enzymatic activity/volume) 41 U/L 5-34 Serum or plasma alanine aminotransferase measurement (enzymatic activity/volume) 31 U/L 0-55 Serum or plasma protein measurement (mass/volume) 7.1 g/dL 6.4-8.2 Serum or plasma albumin measurement (mass/volume) 4.0 g/dL 3.2-4.5 CALCIUM CORRECTED 8.8 mg/dL 8.5-10.1 Serum or plasma C reactive protein measu rement (mass/volume) - 09/25/19 14:35 Serum or plasma C reactive protein measurement (mass/v olume) 4.30 mg/dL 0.00-0.50 Serum or plasma troponin i.cardiac measu rement (mass/volume) - 09/25/19 14:35 Serum or plasma troponin i.cardiac measurement (mass/v olume) 0.040 ng/mL <0.028 Serum or plasma lithium measurement (mol es/volume) - 09/25/19 14:35 BNP PT 200.8 pg/mL <100.0 Bacterial blood culture - 09/25/19 14:35 Bacterial blood culture NG NRG Bacterial blood culture - 09/25/19 15:13 Bacterial blood culture NG NRG Complete urinalysis with reflex to cultu re - 09/25/19 18:13 Urine color determination YELLOW NRG Urine clarity determination CLEAR NR G Urine pH measurement by test strip 5.5 5-9 Specific gravity of urine by test strip 1.025 1.016-1.022 Urine protein assay by test strip, semi-quantitative 2+ NEGATIVE Urine glucose detection by automated test strip 3+ NEGATIVE Erythrocytes detection in urine sediment by light micr oscopy TRACE-I NEGATIVE Urine ketones detection by automated test strip NE GATIVE NEGATIVE Urine nitrite detection by test strip NEGATIVE NEGATIVE Urine total bilirubin detection by test strip NEGA TIVE NEGATIVE Urine urobilinogen measurement by automated test strip (mass/volume) 2.0 mg/dL < = 1.0 Urine leukocyte esterase detection by dipstick NEG ATIVE NEGATIVE Automated urine sediment erythrocyte cou nt by microscopy (number/high power field) NONE NRG Automated urine sediment leukocyte count by microscopy (number/high power field) NONE NRG Bacteria detection in urine sediment by light microsco py TRACE NRG Squamous epithelial cells detection in u rine sediment by light microscopy 2-5 NRG Crystals detection in urine sediment by light microsco py NONE NRG Casts detection in urine sediment by light microscopy PRESENT NRG Mucus detection in urine sediment by light microscopy NEGATIVE NRG Complete urinalysis with reflex to culture NO NRG Granular casts detection in urine sediment by light mi croscopy 2-5 NRG Capillary blood glucose measurement by g lucometer (mass/volume) - 09/25/19 19:53 Capillary blood glucose measurement by glucometer (mas s/volume) 424 mg/dL 70-110 Serum or plasma troponin i.cardiac measu rement (mass/volume) - 09/25/19 20:00 Serum or plasma troponin i.cardiac measurement (mass/v olume) < ng/mL <0.028 Complete blood count (CBC) with automate d white blood cell (WBC) differential - 09/26/19 02:40 Blood leukocytes automated count (number/volume) 5.0 10*3/uL 4.3-11.0 Blood erythrocytes automated count (number/volume) 4.07 10*6/uL 4.35-5.85 Venous blood hemoglobin measurement (mass/volume) 11.3 g/dL 13.3-17.7 Blood hematocrit (volume fraction) 35 % 40-54 Automated erythrocyte mean corpuscular volume 86 [ foz_us] 80-99 Automated erythrocyte mean corpuscular h emoglobin (mass per erythrocyte) 28 pg 25-34 Automated erythrocyte mean corpuscular h emoglobin concentration measurement (mass/volume) 33 g/dL 32-36 Automated erythrocyte distribution width ratio 13. 9 % 10.0- 14.5 Automated blood platelet count (count/volume) 189 10*3/uL 130-400 Automated blood platelet mean volume measurement 10.7 [foz_us] 7.4-10.4 Automated blood neutrophils/100 leukocytes 86 % 42-75 Automated blood lymphocytes/100 leukocytes 12 % 12-44 Blood monocytes/100 leukocytes 2 % 0-12 Automated blood eosinophils/100 leukocytes 0 % 0-10 Automated blood basophils/100 leukocytes 0 % 0-10 Blood neutrophils automated count (number/volume) 4.3 10*3 1.8-7.8 Blood lymphocytes automated count (number/volume) 0.6 10*3 1.0-4.0 Blood monocytes automated count (number/volume) 0. 1 10*3 0.0-1.0 Automated eosinophil count 0.0 10*3/uL 0 .0-0.3 Automated blood basophil count (count/volume) 0.0 10*3/uL 0.0-0.1 Comprehensive metabolic panel - 09/26/19 02:40 Serum or plasma sodium measurement (moles/volume) 136 mmol/L 135-145 Serum or plasma potassium measurement (moles/volume) 5.2 mmol/L 3.6-5.0 Serum or plasma chloride measurement (moles/volume) 103 mmol/L 98-107 Carbon dioxide 21 mmol/L 21-32 Serum or plasma anion gap determination (moles/volume) 12 mmol/L 5-14 Serum or plasma urea nitrogen measurement (mass/volume ) 25 mg/dL 7-18 Serum or plasma creatinine measurement (mass/volume) 1.99 mg/dL 0.60-1.30 Serum or plasma urea nitrogen/creatinine mass ratio 13 NRG Serum or plasma creatinine measurement w ith calculation of estimated glomerular filtration rate 33 NRG Serum or plasma glucose measurement (mass/volume) 482 mg/dL 70-105 Serum or plasma calcium measurement (mass/volume) 8.3 mg/dL 8.5-10.1 Serum or plasma total bilirubin measurement (mass/volu me) 0.5 mg/dL 0.1-1.0 Serum or plasma alkaline phosphatase justin surement (enzymatic activity/volume) 77 U/L 40-136 Serum or plasma aspartate aminotransfera se measurement (enzymatic activity/volume) 36 U/L 5-34 Serum or plasma alanine aminotransferase measurement (enzymatic activity/volume) 27 U/L 0-55 Serum or plasma protein measurement (mass/volume) 6.5 g/dL 6.4-8.2 Serum or plasma albumin measurement (mass/volume) 3.7 g/dL 3.2-4.5 CALCIUM CORRECTED 8.5 mg/dL 8.5-10.1 Serum or plasma troponin i.cardiac measu rement (mass/volume) - 09/26/19 02:40 Serum or plasma troponin i.cardiac measurement (mass/v olume) 0.042 ng/mL <0.028 Serum or plasma phosphate measurement (m ass/volume) - 09/26/19 02:40 Serum or plasma phosphate measurement (mass/volume) 2.2 mg/dL 2.3-4.7 Magnesium - 09/26/19 02:40 Magnesium 2.1 mg/dL 1.6-2.4 Capillary blood glucose measurement by g lucometer (mass/volume) - 09/26/19 09:34 Capillary blood glucose measurement by glucometer (mas s/volume) 312 mg/dL 70-110 Capillary blood glucose measurement by g lucometer (mass/volume) - 09/26/19 11:45 Capillary blood glucose measurement by glucometer (mas s/volume) 300 mg/dL 70-110 Capillary blood glucose measurement by g lucometer (mass/volume) - 09/26/19 14:53 Capillary blood glucose measurement by glucometer (mas s/volume) 276 mg/dL 70-110 Capillary blood glucose measurement by g lucometer (mass/volume) - 09/26/19 15:44 Capillary blood glucose measurement by glucometer (mas s/volume) 238 mg/dL 70-110 Whole blood basic metabolic panel - 09/09 03/28 15:54 Serum or plasma sodium measurement (moles/volume) 139 mmol/L 135-145 Serum or plasma potassium measurement (moles/volume) 4.0 mmol/L 3.6-5.0 Serum or plasma chloride measurement (moles/volume) 104 mmol/L 98-107 Carbon dioxide 25 mmol/L 21-32 Serum or plasma anion gap determination (moles/volume) 10 mmol/L 5-14 Serum or plasma urea nitrogen measurement (mass/volume ) 28 mg/dL 7-18 Serum or plasma creatinine measurement (mass/volume) 1.58 mg/dL 0.60-1.30 Serum or plasma urea nitrogen/creatinine mass ratio 18 NRG Serum or plasma creatinine measurement w ith calculation of estimated glomerular filtration rate 44 NRG Serum or plasma glucose measurement (mass/volume) 253 mg/dL 70-105 Serum or plasma calcium measurement (mass/volume) 8.5 mg/dL 8.5-10.1 Serum or plasma lithium measurement (mol es/volume) - 09/26/19 15:54 BNP PT 388.8 pg/mL <100.0 Capillary blood glucose measurement by g lucometer (mass/volume) - 09/26/19 17:34 Capillary blood glucose measurement by glucometer (mas s/volume) 224 mg/dL 70-110 Capillary blood glucose measurement by g lucometer (mass/volume) - 09/26/19 20:08 Capillary blood glucose measurement by glucometer (mas s/volume) 232 mg/dL 70-110 Comprehensive metabolic panel - 09/27/19 03:30 Serum or plasma sodium measurement (moles/volume) 136 mmol/L 135-145 Serum or plasma potassium measurement (moles/volume) 4.6 mmol/L 3.6-5.0 Serum or plasma chloride measurement (moles/volume) 104 mmol/L 98-107 Carbon dioxide 20 mmol/L 21-32 Serum or plasma anion gap determination (moles/volume) 12 mmol/L 5-14 Serum or plasma urea nitrogen measurement (mass/volume ) 35 mg/dL 7-18 Serum or plasma creatinine measurement (mass/volume) 1.75 mg/dL 0.60-1.30 Serum or plasma urea nitrogen/creatinine mass ratio 20 NRG Serum or plasma creatinine measurement w ith calculation of estimated glomerular filtration rate 39 NRG Serum or plasma glucose measurement (mass/volume) 318 mg/dL 70-105 Serum or plasma calcium measurement (mass/volume) 7.7 mg/dL 8.5-10.1 Serum or plasma total bilirubin measurement (mass/volu me) 0.3 mg/dL 0.1-1.0 Serum or plasma alkaline phosphatase justin surement (enzymatic activity/volume) 66 U/L 40-136 Serum or plasma aspartate aminotransfera se measurement (enzymatic activity/volume) 47 U/L 5-34 Serum or plasma alanine aminotransferase measurement (enzymatic activity/volume) 36 U/L 0-55 Serum or plasma protein measurement (mass/volume) 5.9 g/dL 6.4-8.2 Serum or plasma albumin measurement (mass/volume) 3.4 g/dL 3.2-4.5 CALCIUM CORRECTED 8.2 mg/dL 8.5-10.1 Complete blood count (CBC) with automate d white blood cell (WBC) differential - 09/27/19 03:30 Blood leukocytes automated count (number/volume) 10.7 10*3/uL 4.3-11.0 Blood erythrocytes automated count (number/volume) 3.91 10*6/uL 4.35-5.85 Venous blood hemoglobin measurement (mass/volume) 10.8 g/dL 13.3-17.7 Blood hematocrit (volume fraction) 34 % 40-54 Automated erythrocyte mean corpuscular volume 87 [ foz_us] 80-99 Automated erythrocyte mean corpuscular h emoglobin (mass per erythrocyte) 28 pg 25-34 Automated erythrocyte mean corpuscular h emoglobin concentration measurement (mass/volume) 32 g/dL 32-36 Automated erythrocyte distribution width ratio 13. 8 % 10.0- 14.5 Automated blood platelet count (count/volume) 221 10*3/uL 130-400 Automated blood platelet mean volume measurement 10.6 [foz_us] 7.4-10.4 Automated blood neutrophils/100 leukocytes 84 % 42-75 Automated blood lymphocytes/100 leukocytes 11 % 12-44 Blood monocytes/100 leukocytes 4 % 0-12 Automated blood eosinophils/100 leukocytes 0 % 0-10 Automated blood basophils/100 leukocytes 0 % 0-10 Blood neutrophils automated count (number/volume) 9.0 10*3 1.8-7.8 Blood lymphocytes automated count (number/volume) 1.2 10*3 1.0-4.0 Blood monocytes automated count (number/volume) 0. 5 10*3 0.0-1.0 Automated eosinophil count 0.0 10*3/uL 0 .0-0.3 Automated blood basophil count (count/volume) 0.0 10*3/uL 0.0-0.1 Serum or plasma phosphate measurement (m ass/volume) - 09/27/19 03:30 Serum or plasma phosphate measurement (mass/volume) 3.1 mg/dL 2.3-4.7 Magnesium - 09/27/19 03:30 Magnesium 2.3 mg/dL 1.6-2.4 Capillary blood glucose measurement by g lucometer (mass/volume) - 09/27/19 09:27 Capillary blood glucose measurement by glucometer (mas s/volume) 373 mg/dL 70-110 Capillary blood glucose measurement by g lucometer (mass/volume) - 09/27/19 11:48 Capillary blood glucose measurement by glucometer (mas s/volume) 253 mg/dL 70-110 Capillary blood glucose measurement by g lucometer (mass/volume) - 09/27/19 15:27 Capillary blood glucose measurement by glucometer (mas s/volume) 118 mg/dL 70-110 Capillary blood glucose measurement by g lucometer (mass/volume) - 09/27/19 17:02 Capillary blood glucose measurement by glucometer (mas s/volume) 108 mg/dL 70-110 Capillary blood glucose measurement by g lucometer (mass/volume) - 09/27/19 20:25 Capillary blood glucose measurement by glucometer (mas s/volume) 142 mg/dL 70-110 Complete blood count (CBC) with automate d white blood cell (WBC) differential - 09/28/19 04:35 Blood leukocytes automated count (number/volume) 11.2 10*3/uL 4.3-11.0 Blood erythrocytes automated count (number/volume) 4.02 10*6/uL 4.35-5.85 Venous blood hemoglobin measurement (mass/volume) 11.3 g/dL 13.3-17.7 Blood hematocrit (volume fraction) 35 % 40-54 Automated erythrocyte mean corpuscular volume 87 [ foz_us] 80-99 Automated erythrocyte mean corpuscular h emoglobin (mass per erythrocyte) 28 pg 25-34 Automated erythrocyte mean corpuscular h emoglobin concentration measurement (mass/volume) 32 g/dL 32-36 Automated erythrocyte distribution width ratio 14. 2 % 10.0- 14.5 Automated blood platelet count (count/volume) 234 10*3/uL 130-400 Automated blood platelet mean volume measurement 10.4 [foz_us] 7.4-10.4 Automated blood neutrophils/100 leukocytes 78 % 42-75 Automated blood lymphocytes/100 leukocytes 16 % 12-44 Blood monocytes/100 leukocytes 6 % 0-12 Automated blood eosinophils/100 leukocytes 0 % 0-10 Automated blood basophils/100 leukocytes 0 % 0-10 Blood neutrophils automated count (number/volume) 8.7 10*3 1.8-7.8 Blood lymphocytes automated count (number/volume) 1.8 10*3 1.0-4.0 Blood monocytes automated count (number/volume) 0. 7 10*3 0.0-1.0 Automated eosinophil count 0.0 10*3/uL 0 .0-0.3 Automated blood basophil count (count/volume) 0.0 10*3/uL 0.0-0.1 Whole blood basic metabolic panel - 09/10 04:35 Serum or plasma sodium measurement (moles/volume) 138 mmol/L 135-145 Serum or plasma potassium measurement (moles/volume) 3.8 mmol/L 3.6-5.0 Serum or plasma chloride measurement (moles/volume) 105 mmol/L 98-107 Carbon dioxide 21 mmol/L 21-32 Serum or plasma anion gap determination (moles/volume) 12 mmol/L 5-14 Serum or plasma urea nitrogen measurement (mass/volume ) 43 mg/dL 7-18 Serum or plasma creatinine measurement (mass/volume) 1.58 mg/dL 0.60-1.30 Serum or plasma urea nitrogen/creatinine mass ratio 27 NRG Serum or plasma creatinine measurement w ith calculation of estimated glomerular filtration rate 44 NRG Serum or plasma glucose measurement (mass/volume) 170 mg/dL 70-105 Serum or plasma calcium measurement (mass/volume) 7.8 mg/dL 8.5-10.1 Serum or plasma phosphate measurement (m ass/volume) - 09/28/19 04:35 Serum or plasma phosphate measurement (mass/volume) 4.0 mg/dL 2.3-4.7 Magnesium - 09/28/19 04:35 Magnesium 2.6 mg/dL 1.6-2.4 Capillary blood glucose measurement by g lucometer (mass/volume) - 09/28/19 05:44 Capillary blood glucose measurement by glucometer (mas s/volume) 159 mg/dL 70-110 Capillary blood glucose measurement by g lucometer (mass/volume) - 09/28/19 10:28 Capillary blood glucose measurement by glucometer (mas s/volume) 145 mg/dL 70-110 Capillary blood glucose measurement by g lucometer (mass/volume) - 09/28/19 16:09 Capillary blood glucose measurement by glucometer (mas s/volume) 101 mg/dL 70-110 Encounters ACCT No. Visit Date/Time Discharge Status Pt. Type Provider Facility Loc./Unit Complaint [id number] 04/09/2017 00:00:00 04/09/2017 10:30: 00 DIS Outpatient Sander Nair [id number] 04/06/2017 10:08:00 04/06/2017 23:59: 00 DIS Outpatient Sander Nair [id number] 04/08/2017 15:30:37 Document Registration [id number] 08/15/2014 11:23:00 08/15/2014 23:59: 59 CLS Outpatient NISHI PALENCIA APRN [id number] 07/25/2014 11:25:00 07/25/2014 23:59: 59 CLS Outpatient NISHI PALENCIA APRN [id number] 06/25/2014 11:05:00 06/25/2014 23:59: 59 CLS Outpatient NISHI PALENCIA APRN [id number] 05/23/2014 10:05:00 05/23/2014 23:59: 59 CLS Outpatient NISHI PALENCIA APRN [id number] 04/23/2014 09:17:00 04/23/2014 23:59: 59 CLS Outpatient NISHI PALENCIA APRN [id number] 04/16/2014 13:23:00 04/16/2014 23:59: 59 CLS Outpatient ZULMA PATINO APRN Yobani [id number] 02/21/2014 11:53:00 02/21/2014 23:59: 59 CLS Outpatient NISHI PALENCIA APRN [id number] 12/29/2013 09:51:00 12/29/2013 23:59: 59 CLS Outpatient NISHI PALENCIA APRN [id number] 11/24/2013 11:09:00 11/24/2013 23:59: 59 CLS Outpatient NISHI PALENCIA APRN [id number] 10/20/2013 10:36:00 10/20/2013 23:59: 59 CLS Outpatient NISHI PALENCIA APRN [id number] 08/08/2013 09:11:00 08/08/2013 23:59: 59 CLS Outpatient DEANA NEGRETE APRN [place] [id number] 05/12/2013 15:48:00 05/12/2013 23:59: 59 CLS Outpatient ABBE CARO DO [id number] 10/31/2012 10:53:00 10/31/2012 23:59: 59 CLS Outpatient ABBE CARO DO [id number] 10/20/2012 10:06:00 10/20/2012 23:59: 59 CLS Outpatient ABBE CARO DO [id number] 10/13/2012 09:50:00 10/13/2012 23:59: 59 CLS Outpatient ABBE CARO DO [id number] 09/15/2012 11:48:00 09/15/2012 23:59: 59 CLS Outpatient [id number] 07/07/2012 07:45:00 07/07/2012 23:59: 59 CLS Outpatient ABBE CARO DO [id number] 07/07/2012 07:45:00 07/07/2012 23:59:5 9 CLS Outpatient [id number] 01/16/2013 13:04:00 Document Registration [id number] 10/13/2012 09:50:00 Document Registration [id number] 05/16/2016 08:07:00 Document Registration [id number] 09/28/2019 08:14:00 16:15:00 DIS Outpatient MILTON WHITE, HOWARD Hilton Via [facility] 4TH COPD W EXACERBATION, EL EVATED TROP, PNA, HYPOXIA [id number] 01/04/2019 10:35:00 23:59:59 CLS Outpatient CHRISTINA SIMPSON APRN [facility] LAB CHRONIC KIDNEY DISEASE STAGE THREE [id number] 09/13/2018 13:19:00 23:59:59 CLS Outpatient CHRISTINA SIMPSON APRN Via [facility] LAB CHRONIC KIDNEY DISEASE STAGE 3 [id number] 05/19/2018 09:57:00 23:59:59 CLS Outpatient YESSENIA MICHELE [facility] LAB CAD [id number] 05/19/2018 09:53:00 23:59:59 CLS Outpatient CHRISTINA SIMPSON FINE HAIRER Via [facility] LAB CHRONIC KIDNEY DISEASE [id number] 04/20/2018 15:50:00 14:20:00 DIS Inpatient LAURI WHITE, PAKO Abad [facility] 4TH CHEST PAIN,R/O ACS [id number] 01/31/2018 07:25:00 23:59:59 CLS Outpatient DAMASO WHITE, MERCED S [facility] RAD CKD, SIMPLE VERONICA AL CYST [id number] 11/07/2017 18:38:00 018 22:15:00 DIS Emergency DAIJA FANG [facility] ER CONGESTED,COUGH,SOB [id number] 09/24/2017 13:09:00 018 23:59:59 CLS Outpatient NISHI PALENCIA Via [facility] RAD LT FLANK PAIN R10.9 [id number] 06/06/2017 11:26:00 017 13:44:00 DIS Emergency DAIJA FANG Via [facility] ER BACK/L SIDE PAIN [id number] 01/05/2017 17:42:00 017 19:27:00 DIS Emergency SUMIT MANRIQUE DO [facility] ER POST OP/R FOOT PAIN AND TOE DISCOLORATION [id number] 03/17/2016 15:10:00 016 23:59:59 CLS Outpatient NISHI PALENCIA Via [facility] RAD OTHER CHRONIC PAIN [id number] 04/09/2014 10:08:00 014 11:57:00 DIS Emergency JEFERSON RUBALCAVA MD Via [facility] ER BACK PAIN [id number] 03/04/2012 12:02:00 Document Registration [id number] 10/20/2011 15:10:00 Document Registration [id number] 10/20/2011 11:10:00 Document Registration [id number] 10/15/2011 11:11:00 Document Registration [id number] 10/08/2011 10:32:00 Document Registration
[2020-01-22] MEDS ORDERED: LACTATED RINGERS 1,000 ML IV STA (09:50)
--- NOTE | 2020-01-22 10:23 | ED General ---
General Stated Complaint: BACK/SHOULDER PAIN;FEVERISH;COUGH Source of Information: Patient Exam Limitations: No Limitations (EVELIN SANTIAGO MD) History of Present Illness Date Seen by Provider: Jan 22, 2020 Time Seen by Provider: 09:40 Initial Comments Initiated via virtual visit. Here with intermittent fever, chills, body aches, backache and chest pain. Notes he has a sore on his back that is causing pain. He has had some nausea, fever, SOA, chest pain with this. Chest pain is central and goes to left axilla. Last chest pain was last night. Denies vomiting or diarrhea. No known COVID-19 exposure and no travel history. Has been to the store and around in the community. Pain is not better with his current med ication regimen. Timing/Duration: 1-2 Days Severity: Moderate Associated Systoms: Chest Pain, Fever/Chills, Shortness of Air; No Weakness (EVELIN SANTIAGO MD) Allergies and Home Medications Allergies Coded Allergies: No Known Drug Allergies (Unverified , 10/08/11) Home Medications Amlodipine Besylate 10 Mg Tablet, 10 MG PO DAILY, (Reported) Aspirin 325 Mg Tablet.dr, 325 MG PO DAILY, (Reported) Atorvastatin Calcium 20 Mg Tablet, 20 MG PO DAILY, (Reported) Fluticasone/Salmeterol 12 Gm Hfa.aer.ad, 2 PUFF IH BID@ Prescribed by: HOWARD ROSE on 09/28/19 1426 Gabapentin 800 Mg Tablet, 800 MG PO TID, (Reported) Insulin Aspart 300 Units/3 Ml Solution, 55 UNITS SQ AC, (Reported) Insulin Detemir 100 Unit/1 Ml Insuln.pen, 60 UNIT SQ BID, (Reported) LAST FILLED 05-22-2019 # 5 PENS Lisinopril 40 Mg Tablet, 40 MG PO DAILY Prescribed by: HOWARD ROSE on 09/28/19 1426 Metformin HCl 500 Mg Tablet, 500 MG PO BID WITH MEALS, (Reported) Metoprolol Tartrate 100 Mg Tablet, 100 MG PO BID, (Reported) Oxycodone HCl/Acetaminophen 1 Each Tablet, 1 TAB PO Q6H PRN for PAIN-MODERATE, (Reported) Prednisone 20 Mg Tab, 20 MG PO DAILY Take 3 tabs(60mg) x3 days then 2 tabs x 3 days then 1 tab x3 days then 1/2 tab x 4 days, then stop Prescribed by: HOWARD ROSE on 09/28/19 1426 Patient Home Medication List Home Medication List Reviewed: Yes (EVELIN SANTIAGO MD) Review of Systems Review of Systems Constitutional: see HPI; No chills; fever, malaise; No weakness EENTM: nose congestion; No throat pain Respiratory: No cough; short of breath Cardiovascular: chest pain; No edema Gastrointestinal: No abdominal pain; nausea Musculoskeletal: back pain, muscle pain Skin: change in color, lesions Psychiatric/Neurological: Denies Headache, Denies Weakness Hematologic/Lymphatic: No Symptoms Reported (EVELIN SANTIAGO MD) All Other Systems Reviewed Negative Unless Noted: Yes (EVELIN SANTIAGO MD) Past Hyhuyut-Qghbxg-Xavfis Hx Past Med/Social Hx: Reviewed Nursing Past Med/Soc Hx (EVELIN SANTIAGO MD) Patient Social History Alcohol Use: Denies Use Recreational Drug Use: No Smoking Status: Never a Smoker Former Smoker, Quit: Aug 09, 1979 2nd Hand Smoke Exposure: No Recent Hopitalizations: No (EVELIN SANTIAGO MD) Immunizations Up To Date Tetanus Booster (TDap): Unknown (EVELIN SANTIAGO MD) Seasonal Allergies Seasonal Allergies: No (EVELIN SANTIAGO MD) Past Medical History Surgeries: Yes (BACK SURGERY 2017 AT [facility]. KNEE SCOPE 20 YRS AGO) Cardiac, Neurological, Orthopedic Respiratory: Yes Pneumonia, Sleep Apnea Currently Using CPAP: Yes (DOESNT USE IT) Cardiac: Yes Hypertension Neurological: Yes Neuropathy Reproductive Disorders: No Genitourinary: Yes (LEFT KIDNEY CYST) Gastrointestinal: No Musculoskeletal: Yes Arthritis Endocrine: Yes Diabetes, Insulin dep HEENT: Yes (WEARS GLASSES) Cataract Cancer: No Psychosocial: No Integumentary: No Blood Disorders: No (EVELIN SANTIAGO MD) Family Medical History Reviewed Nursing Family Hx (EVELIN SANTIAGO MD) Cardiovascular disease 19 FATHER Completed stroke G8 BROTHER Diabetes mellitus G8 BROTHER Kidney disease G8 BROTHER Neoplasm 19 MOTHER CAD Under 55 Years Old (EVELIN SANTIAGO MD) Physical Exam-Suspected Sepsis Physical Exam Vital Signs Vital Signs - First Documented 01/22/20 09:27 Temp 37.3 Pulse 86 Resp 20 B/P (MAP) 197/83 (121) Pulse Ox 94 O2 Delivery Room Air (TAM ALFORD) Vital Signs Capillary Refill : (EVELIN SANTIAGO MD) Height, Weight, BMI Height: 5'7.00" Weight: 284lbs. 2.0oz. 128.100460ce; 41.32 BMI Method:Stated General Appearance: No Apparent Distress, WD/WN Neurologic/Psychiatric: Alert, Oriented x3, Normal Mood/Affect Skin: other (Approx 8x8 cm area of erythema to mid back with central 2 cm area of increases pain/swelling) (EVELIN SANTIAGO MD) General Appearance: Mild Distress, Obese Eyes: Bilateral Eye Normal Inspection, Bilateral Eye PERRL, Bilateral Eye EOMI HEENT: PERRL/EOMI, TMs Normal, Normal ENT Inspection, Pharynx Normal, Moist Mucous Membranes Neck: Full Range of Motion, Normal Inspection Respiratory: Lungs Clear, Normal Breath Sounds, No Accessory Muscle Use Cardiovascular: Regular Rate, Rhythm, No Edema, Normal Peripheral Pulses Gastrointestinal: Normal Bowel Sounds, Non Tender, Soft Back: No Vertebral Tenderness, Other (a 6 cm diameter tender, non-erythematous mass under the dermis just the right side of his thoracic spine. Small area about 2 cm diameter of erythema and induration without pointing.) Extremity: Normal Capillary Refill, Normal Inspection, Normal Range of Motion Neurologic/Psychiatric: Alert, No Motor/Sensory Deficits Skin: normal color, warm/dry (TAM ALFORD) Focused Exam Lactate Level 01/22/20 10:25: Lactic Acid Level 1.67 (TAM ALFORD) Lactic Acid Level (TAM ALFORD) Procedures/Interventions I&D : Site: midthoracic, right of the spine Blade Size: 11 I & D Procedure: betadine prep (etoh), sterile dressing applied Progress Wound was infiltrated with lidocaine after being thoroughly cleaned with alcohol. When the patient was ascertained to be anesthetized appropriately we noted a 3 x 3 mm cross brunson incision using an 11 blade scalpel. This provider went 5 mm deep and were only able to obtain sanguinous drainage. We did not extend the wound as the patient is on Lovenox. We will defer to general surgery. Either the abscess is not set up enough for it is some kind of epidermal inclusion cyst that will need a wider excision. This can be done at a later date. 2 milligrams morphine IV were given for comfort. (TAM ALFORD) Progress/Results/Core Measures Suspected Sepsis SIRS Temperature: Pulse: Respiratory Rate: Laboratory Tests 01/22/20 10:25: White Blood Count 13.7H Blood Pressure / Mean: 01/22/20 10:25: Lactic Acid Level 1.67 Laboratory Tests 01/22/20 10:25: Creatinine 1.71H, INR Comment 1.2, Platelet Count 170, Total Bilirubin 1.3H (EVELIN SANTIAGO MD) Results/Orders Lab Results Laboratory Tests Test 01/22/20 10:25 01/22/20 10:30 01/22/20 11:45 Range/Units White Blood Count 13.7 H 4.3-11.0 10^3/uL Red Blood Count 4.61 4.35-5.85 10^6/uL Hemoglobin 13.1 L 13.3-17.7 G/DL Hematocrit 38 L 40-54 % Mean Corpuscular Volume 82 80-99 FL Mean Corpuscular Hemoglobin 28 25-34 PG Mean Corpuscular Hemoglobin Concent 35 32-36 G/DL Red Cell Distribution Width 13.1 10.0-14.5 % Platelet Count 170 130-400 10^3/uL Mean Platelet Volume 11.2 H 7.4-10.4 FL Neutrophils (%) (Auto) 81 H 42-75 % Lymphocytes (%) (Auto) 9 L 12-44 % Monocytes (%) (Auto) 8 0-12 % Eosinophils (%) (Auto) 1 0-10 % Basophils (%) (Auto) 0 0-10 % Neutrophils # (Auto) 11.1 H 1.8-7.8 X 10^3 Lymphocytes # (Auto) 1.3 1.0-4.0 X 10^3 Monocytes # (Auto) 1.2 H 0.0-1.0 X 10^3 Eosinophils # (Auto) 0.1 0.0-0.3 10^3/uL Basophils # (Auto) 0.0 0.0-0.1 10^3/uL Erythrocyte Sedimentation Rate 36 H 0-30 MM/HR Prothrombin Time 15.8 H 12.2-14.7 SEC INR Comment 1.2 0.8-1.4 Activated Partial Thromboplast Time 32 24-35 SEC D-Dimer 0.64 H 0.00-0.49 UG/ML Sodium Level 130 L 135-145 MMOL/L Potassium Level 4.8 3.6-5.0 MMOL/L Chloride Level 97 L 98-107 MMOL/L Carbon Dioxide Level 20 L 21-32 MMOL/L Anion Gap 13 5-14 MMOL/L Blood Urea Nitrogen 25 H 7-18 MG/DL Creatinine 1.71 H 0.60-1.30 MG/DL Estimat Glomerular Filtration Rate 40 BUN/Creatinine Ratio 15 Glucose Level 305 H 70-105 MG/DL Lactic Acid Level 1.67 0.50-2.00 MMOL/L Calcium Level 8.7 8.5-10.1 MG/DL Corrected Calcium 9.0 8.5-10.1 MG/DL Total Bilirubin 1.3 H 0.1-1.0 MG/DL Aspartate Amino Transf (AST/SGOT) 20 5-34 U/L Alanine Aminotransferase (ALT/SGPT) 18 0-55 U/L Alkaline Phosphatase 81 40-136 U/L Lactate Dehydrogenase 371 H 125-220 U/L Troponin I 0.044 H <0.028 NG/ML C-Reactive Protein High Sensitivity 24.93 H 0.00-0.50 MG/DL Total Protein 6.9 6.4-8.2 GM/DL Albumin 3.6 3.2-4.5 GM/DL Procalcitonin 0.57 H <0.10 NG/ML Urine Color YELLOW Urine Clarity CLEAR Urine pH 5.5 5-9 Urine Specific [place] 1.025 H 1.016-1.022 Urine Protein 2+ H NEGATIVE Urine Glucose (UA) 3+ H NEGATIVE Urine Ketones 1+ H NEGATIVE Urine Nitrite NEGATIVE NEGATIVE Urine Bilirubin NEGATIVE NEGATIVE Urine Urobilinogen 4.0 < = 1.0 MG/DL Urine Leukocyte Esterase NEGATIVE NEGATIVE Urine RBC (Auto) NEGATIVE NEGATIVE Urine RBC NONE /HPF Urine WBC NONE /HPF Urine Squamous Epithelial Cells 0-2 /HPF Urine Crystals PRESENT H /LPF Urine Amorphous Sediment FEW IRMA URATES H /LPF Urine Bacteria TRACE /HPF Urine Casts PRESENT /LPF Urine Granular Casts RARE /LPF Urine Mucus NEGATIVE /LPF Urine Culture Indicated CULTURE PENDING (TAM ALFORD) My Orders Orders - TAM ALFORD Aspirin Chewable Tablet (Baby Aspirin Ch (01/22/20 11:45) Enoxaparin Injection (Lovenox Injection) (01/22/20 12:00) Lidocaine 1% Inj 20 Ml (Xylocaine 1% Inj (01/22/20 12:06) Lidocaine 1% Inj 20 Ml (Xylocaine 1% Inj (01/22/20 12:15) Morphine Injection (Morphine Injection (01/22/20 13:02) (TAM ALFORD) Medications Given in ED Current Medications Medications Dose Ordered Sig/Colleen Route Start Time Stop Time Status Last Admin Dose Admin Aspirin 324 mg ONCE ONCE PO 01/22/20 11:45 01/22/20 11:46 DC 01/22/20 11:56 324 MG Enoxaparin Sodium 120 mg ONCE ONCE SC 01/22/20 12:00 01/22/20 12:01 DC 01/22/20 12:43 120 MG Lidocaine HCl 20 ml ONCE ONCE INJ 01/22/20 12:15 01/22/20 12:20 DC 01/22/20 13:10 20 ML (TAM ALFORD) Vital Signs/I&O 01/22/20 01/22/20 09:27 13:43 Temp 37.3 Pulse 86 72 Resp 20 18 B/P (MAP) 197/83 (121) 146/72 Pulse Ox 94 92 O2 Delivery Room Air (TAM ALFORD) Vital Signs/I&O Capillary Refill : (EVELIN SANTIAGO MD) Progress Note : Progress Note Seen and evaluated via virtual visit. IV, labs, blood cultures, lactic acid, EKG and covid screening initiated. LR 1 L bolus ordered. monitor patient. 1118: Labs and evaluation to this point reviewed by me and discussed with Dr Alford. Care transfered to Dr Alford pending remaining labs and CXR. (EVELIN SANTIAGO MD) Progress Note : Time: 11:38 Progress Note I have seen, interviewed and physically examined the patient and agree with the above documented history and physical exam per Dr. Santiago. Patient has a large 6 cm tender indurated mass just right of midline in the thoracic spine probably consistent with a sebaceous cyst or other similar tumor. He is having some chest pain for the past. The patient's bladder and does have an elevated troponin of uncertain significance. No history of stents who has had 2 heart catheterizations in the past. He is known to Dr. Munguia but was lost to follow- up. History of hypertension, hyperlipidemia and mild coronary artery disease. He has diabetes and obesity. Chronic renal failure with baseline of 1.3-2.0. Had a catheterization 2011 demonstrating mild to moderate disease. Echocardiogram [address] Munguia showing EF of 50-55% with grade 2 diastolic dysfunction. Were going to give him 324 mg of aspirin to chew up and swallow. We'll give him a 1 mg/kg dose of Lovenox. His GFR is 40 mL per hour. (TAM ALFORD) ECG Initial ECG Impression Date: Jan 22, 2020 Initial ECG Impression Time: 10:49 Initial ECG Rate: 85 Initial ECG Rhythm: Normal Sinus Initial ECG Impression: Normal Comment Siinus with normal axis. No evidence of STEMI. Similar to prviious of 09/26/19. Interpreted by me. (EVELIN SANTIAGO MD) Diagnostic Imaging Diagonstic Imaging: Xray Plain Films/CT/US/NM/MRI: chest Comments No acute cardiopulmonary process on one view chest x-ray. NAME: KRISTAL MEJIA Koffi [facility] REC#: [id number] PT STATUS: REG ER : 1950 PHYSICIAN: EVELIN SANTIAGO MD ADMIT DATE: 01/22/20/ER Signed Date of Exam:01/22/20 CHEST 1 VIEW, AP/PA ONLY CHEST 1 VIEW, AP/PA ONLY Indication: Chest pain and weakness Comparison: 09/27/2019 Findings: No focal airspace disease in the visualized lungs. Please note that the posterior lower lobes are poorly evaluated by portable radiography. No pleural effusion or pneumothorax. Stable enlarged cardiac silhouette. Impression: 1. No acute cardiopulmonary process by portable radiography. Dictated by: Dictated on workstation # [id number] Dict: 01/22/20 1222 Trans: 01/22/20 1222 [facility] [id number] Interpreted by: ANURAG GARDINER MD Electronically signed by: ANURAG GARDINER MD 01/22/202 Reviewed: Reviewed by Me (TAM ALFORD) Departure Communication (Admissions) Time/Spoke to Admitting Phy: 12:32 Dr. Castillo agrees to accept the patient. Time/Spoke to Consulting Phy: 11:50 Discussed the case with Dr. Munguia and he agrees to consult on the case. (TAM ALFORD) Impression Primary Impression: Chest pain Qualified Codes: R07.9 - Chest pain, unspecified Additional Impressions: Acute coronary syndrome Sebaceous cyst Viral pneumonitis Disposition: ADMITTED INPATIENT Condition: Stable Admissions Decision to Admit Reason: Admit from ER (General) Decision to Admit/Date: Jan 22, 2020 Time/Decision to Admit Time: 11:50 (TAM ALFORD) Departure-Patient Inst. Referrals: [facility] (PCP) Primary Care Physician NISHI PALENCIA (Family) Primary Care Physician EVELIN SANTIAGO MD Jan 22, 2020 10:22 TAM ALFORD Jan 22, 2020 11:43
[2020-01-22 10:52] LABS: BASOPHILS % (AUTO) 0 % (0-10); EOSINOPHILS # (AUTO) 0.1 10^3/uL (0.0-0.3); EOSINOPHILS % (AUTO) 1 % (0-10); HEMATOCRIT 38 % (40-54); HEMOGLOBIN 13.1 G/DL (13.3-17.7); LYMPHOCYTES # (AUTO) 1.3 X 10^3 (1.0-4.0); LYMPHOCYTES % (AUTO) 9 % (12-44); MEAN CORPUSCULAR HEMOGLOBIN 28 PG (25-34); MEAN CORPUSCULAR HGB CONC 35 G/DL (32-36); MEAN CORPUSCULAR VOLUME 82 FL (80-99); MEAN PLATELET VOLUME 11.2 FL (7.4-10.4); MONOCYTES # (AUTO) 1.2 X 10^3 (0.0-1.0); MONOCYTES % (AUTO) 8 % (0-12); NEUTROPHILS # (AUTO) 11.1 X 10^3 (1.8-7.8); NEUTROPHILS % (AUTO) 81 % (42-75); PLATELET COUNT 170 10^3/uL (130-400); RED CELL DISTRIBUTION WIDTH 13.1 % (10.0-14.5); WHITE BLOOD COUNT 13.7 10^3/uL (4.3-11.0)
[2020-01-22 11:04] LABS: FIBRIN DEGRADATION PRODUCTS 0.64 UG/ML (0.00-0.49); INR 1.2 (0.8-1.4); PROTHROMBIN TIME PATIENT 15.8 SEC (12.2-14.7)
[2020-01-22 11:10] LABS: ALBUMIN 3.6 GM/DL (3.2-4.5); BILIRUBIN,TOTAL 1.3 MG/DL (0.1-1.0); CALCIUM 8.7 MG/DL (8.5-10.1); CREATININE SERUM 1.71 MG/DL (0.60-1.30); POTASSIUM 4.8 MMOL/L (3.6-5.0); TOTAL PROTEIN 6.9 GM/DL (6.4-8.2)
--- NOTE | 2020-01-22 11:11 | NUR ---
1030 COVID SCREENING DONE
[2020-01-22 11:15] LABS: ERYTHROCYTE SEDIMENTATION RATE 36 MM/HR (0-30)
[2020-01-22] MEDS ORDERED: ASPIRIN 81 MG CHEW (CHILDREN'S ASA) PO ONE (11:45)
[2020-01-22] MEDS ORDERED: ENOXAPARIN 60 MG/0.6 ML (LOVENOX) SYR SC ONE (12:00)
[2020-01-22] MEDS ORDERED: LIDOCAINE 1% INJ 20 ML 20 ML VIAL ONE (12:06)
[2020-01-22 12:07] LABS: BILIRUBIN,URINE NEGATIVE (NEGATIVE); CLARITY,URINE CLEAR; COLOR,URINE YELLOW; GLUCOSE, URINE (UA) 3+ (NEGATIVE); KETONES,URINE 1+ (NEGATIVE); LEUKOCYTE ESTERASE ,URINE NEGATIVE (NEGATIVE); NITRITE,URINE NEGATIVE (NEGATIVE); PH,URINE 5.5 (5-9); PROTEIN,URINE 2+ (NEGATIVE)
[2020-01-22] MEDS ORDERED: LIDOCAINE 1% INJ 20 ML 20 ML VIAL INJ ONE (12:15)
[2020-01-22 12:20] LABS: AMORPHOUS SEDIMENT,UR FEW AMOR URATES /LPF; BACTERIA,URINE TRACE /HPF; SQUAMOUS EPITHELIAL CELL,UR 0-2 /HPF
[2020-01-22 12:21] LABS: GRANULAR CASTS,URINE RARE /LPF
--- NOTE | 2020-01-22 12:24 | Diagnostic Imaging Report ---
CHEST 1 VIEW, AP/PA ONLY Indication: Chest pain and weakness Comparison: 09/27/2019 Findings: No focal airspace disease in the visualized lungs. Please note that the posterior lower lobes are poorly evaluated by portable radiography. No pleural effusion or pneumothorax. Stable enlarged cardiac silhouette. Impression: 1. No acute cardiopulmonary process by portable radiography. Dictated by: Dictated on workstation # [id number]
[2020-01-22] MEDS ORDERED: morphine INJ 10 MG/ML 1ML (SYR OR VIAL) IVP STA (13:02)
[2020-01-22] MEDS ORDERED: NS IV 1000 ML 1,000 ML ONE (16:32)
[2020-01-22] MEDS ORDERED: ONDANSETRON 4 MG/2 ML (SDV) Z0FRAN ONE (16:38)
[2020-01-22 16:47] VITALS: BP 124/62
[2020-01-22] MEDS: NS IV 1000 ML 1,000 ML IV SCH ×3 (16:57→23:48)
[2020-01-22] MEDS: ONDANSETRON 4 MG/2 ML (SDV) Z0FRAN IVP PRN (16:57)
[2020-01-22] MEDS ORDERED: morphine INJ 4 MG/ML 1 ML (VIAL/SYRINGE) IV PRN (17:00)
[2020-01-22] MEDS ORDERED: ANTACID SUSP 30 ML UDC (MYLANTA) PO PRN (17:00)
[2020-01-22] MEDS ORDERED: NITROGLYCERIN 0.4 MG SL TABS BTL 25'S SL PRN (17:00)
[2020-01-22] MEDS: inSUlin ASPART (NovoLOG) 1 UNIT/0.01 ML (CHARGE PER UNIT) SC SCH (17:09)
[2020-01-22] MEDS ORDERED: inSUlin ASPART (NovoLOG) 1 UNIT/0.01 ML (CHARGE PER UNIT) SC SCH (17:45)
[2020-01-22 19:42] VITALS: BP 160/69
[2020-01-22] MEDS: ACETAMINOPHEN 500 MG TAB (TYLENOL) PO PRN (19:47)
[2020-01-22] MEDS ORDERED: LOPERAMIDE 2 MG (IMODIUM) TABLET PO PRN (21:00)
[2020-01-22] MEDS ORDERED: LACTULOSE SYRUP 10GM/15ML (ENULOSE) 30ML UDC PO PRN (21:00)
[2020-01-22] MEDS ORDERED: SENNA W/DOCUSATE (SENOKOT S) TABLET PO PRN (21:00)
[2020-01-22] MEDS ORDERED: diphenhydrAMINE 25 MG TAB (BENADRYL) PO PRN (21:00)
[2020-01-22] MEDS ORDERED: DOCUSATE SODIUM 100 MG (COLACE) CAP PO PRN (21:00)
[2020-01-22 23:46] VITALS: BP 137/72
[2020-01-22] MEDS: ENOXAPARIN 60 MG/0.6 ML (LOVENOX) SYR SC SCH (23:48)
[2020-01-23] VITALS (8 sets, daily range): BP systolic 112–162; BP diastolic 63–77
[2020-01-23] MEDS: ALPRAZolam 0.25 MG (XANAX) TAB PO PRN ×2 (02:55→20:17)
[2020-01-23] MEDS: ACETAMINOPHEN 500 MG TAB (TYLENOL) PO PRN ×3 (02:56→21:23)
[2020-01-23 03:39] LABS: BASOPHILS % (AUTO) 0 % (0-10); EOSINOPHILS % (AUTO) 0 % (0-10); HEMATOCRIT 35 % (40-54); LYMPHOCYTES # (AUTO) 1.4 X 10^3 (1.0-4.0); LYMPHOCYTES % (AUTO) 9 % (12-44); MEAN CORPUSCULAR HEMOGLOBIN 28 PG (25-34); MEAN CORPUSCULAR HGB CONC 34 G/DL (32-36); MEAN CORPUSCULAR VOLUME 81 FL (80-99); MEAN PLATELET VOLUME 10.6 FL (7.4-10.4); MONOCYTES # (AUTO) 1.3 X 10^3 (0.0-1.0); MONOCYTES % (AUTO) 9 % (0-12); NEUTROPHILS # (AUTO) 12.1 X 10^3 (1.8-7.8); NEUTROPHILS % (AUTO) 82 % (42-75); PLATELET COUNT 188 10^3/uL (130-400); WHITE BLOOD COUNT 14.7 10^3/uL (4.3-11.0)
[2020-01-23 04:07] LABS: ALANINE AMINOTRANSFERASE 16 U/L (0-55); ALBUMIN 3.2 GM/DL (3.2-4.5); ALKALINE PHOSPHATASE 73 U/L (40-136); BILIRUBIN,TOTAL 1.2 MG/DL (0.1-1.0); BUN/CREATININE RATIO 16; CALCIUM 8.1 MG/DL (8.5-10.1); CARBON DIOXIDE 19 MMOL/L (21-32); CHLORIDE 101 MMOL/L (98-107); CHOLESTEROL 86 MG/DL (< 200); CREATININE SERUM 1.46 MG/DL (0.60-1.30); GFR ESTIMATED 48; GLUCOSE 160 MG/DL (70-105); HDL CHOLESTEROL < 15 MG/DL (40-60); POTASSIUM 3.7 MMOL/L (3.6-5.0); SODIUM 131 MMOL/L (135-145); TOTAL PROTEIN 6.1 GM/DL (6.4-8.2); TRIGLYCERIDES 125 MG/DL (<150); VLDL CHOLESTEROL 25 MG/DL (5-40)
[2020-01-23] MEDS: inSUlin ASPART (NovoLOG) 1 UNIT/0.01 ML (CHARGE PER UNIT) SC SCH ×3 (05:32→16:25)
--- NOTE | 2020-01-23 07:09 | History & Physical-Hospitalist ---
History of Present Illness HPI/Chief Complaint CC: Chest pain with slightly elevated troponin HPI: This is a 69yoWM clinic Pt of [facility] who presented to the ER with chest pain with slightly elevated troponin but PMH of renal insufficiency, creatinine of 1.6, and WBC of 14, having a back sebaceous cyst that was attempted to be drained while in the ER but he was swabbed for COVID for a sporadic fever, subjectively the Pt reported so he is still remains in isolation. At this current time Pt is sleeping on his left side, denied any chest pain, we will have general surgery look at the sebaceous cyst and make a decision on that once the COVID test is back which likely will be presumptively negative. We will obtain cardiology consultation and close management in the meantime. Source: patient, RN/MD Exam Limitations: other (PPE) Date Seen 01/23/20 Time Seen by a Provider: 09:30 Attending Physician Eli Castillo DO [facility] Referring Physician Date of Admission Jan 22, 2020 at 13:15 Home Medications & Allergies Home Medications Reviewed patient Home Medication Reconciliation performed by pharmacy medication reconciliations industrial safety and health technician and/or nursing. Patients Allergies have been reviewed. Allergies Allergies Coded Allergies No Known Drug Allergies (Unverified10/08/11) Past Nntzsrx-Jwwpac-Srxohm Hx Past Med/Social Hx: Reviewed Nursing Past Med/Soc Hx, Reviewed and Corrections made Patient Social History Marrital Status: Alcohol Use: Denies Use Recreational Drug Use: No Smoking Status: Never a Smoker Former Smoker, Quit: Aug 09, 1979 2nd Hand Smoke Exposure: No Recent Foreign Travel: No Contact w/other who traveled: No Recent Hopitalizations: No Recent Infectious Disease Expo: No Immunizations Up To Date Tetanus Booster (TDap): Unknown Seasonal Allergies Seasonal Allergies: No Past Medical History Surgeries: Cardiac, Neurological, Orthopedic Currently Using CPAP: Yes (DOESNT USE IT) Cardiac: Hypertension Neurological: Neuropathy Reproductive: No Genitourinary: Renal Failure Musculoskeletal: Arthritis Endocrine: Diabetes, Insulin dep HEENT: Cataract History of Blood Disorders: No Family History Reviewed Nursing Family Hx Cardiovascular disease 19 FATHER Completed stroke G8 BROTHER Diabetes mellitus G8 BROTHER Kidney disease G8 BROTHER Neoplasm 19 MOTHER CAD Under 55 Years Old Review of Systems Constitutional: see HPI Skin: see HPI, rash Physical Exam Physical Exam Vital Signs Vital Signs - First Documented 01/22/20 09:27 Temp 37.3 Pulse 86 Resp 20 B/P (MAP) 197/83 (121) Pulse Ox 94 O2 Delivery Room Air Capillary Refill : Less Than 3 Seconds Height, Weight, BMI Height: 5'7.00" Weight: 284lbs. 2.0oz. 128.009489dz; 41.17 BMI Method:Stated General Appearance: No Apparent Distress, Chronically ill, Obese Eyes: Right Eye Normal Inspection, Right Eye PERRL HEENT: PERRL/EOMI, Normal ENT Inspection, Pharynx Normal, Moist Mucous Membranes Neck: Full Range of Motion, Normal Inspection, Non Tender Respiratory: Chest Non Tender, Lungs Clear, Normal Breath Sounds, No Accessory Muscle Use, No Respiratory Distress Cardiovascular: Regular Rate, Rhythm, No Edema, No Gallop, No JVD, No Murmur, Normal Peripheral Pulses Gastrointestinal: Normal Bowel Sounds, No Organomegaly, No Pulsatile Mass, Non Tender, Soft Back: Normal Inspection, No CVA Tenderness, No Vertebral Tenderness Extremity: Normal Capillary Refill, Normal Inspection, Normal Range of Motion, Non Tender, No Calf Tenderness, No Pedal Edema Neurologic/Psychiatric: Alert, Oriented x3, No Motor/Sensory Deficits, Normal Mood/Affect Skin: Normal Color, Warm/Dry Lymphatic: No Adenopathy Results Results/Procedures Labs Laboratory Tests 01/22/20 10:25 01/23/20 03:30 Patient resulted labs reviewed. Assessment/Plan Admission Diagnosis Assessment: Chest pain Elevated troponin CRI DM insulin dependent Obesity HTN HLP Sebaceous cyst on back Plan: Cardiology consultation COVID-19 swab pending Monitor closely May need general surgery consultation for cyst Admission Status: Inpatient Order (span 2 midnights) Reason for Inpatient Admission: NSTEMI Diagnosis/Problems Diagnosis/Problems (1) Acute coronary syndrome Status: Acute (2) Chest pain Status: Acute Qualifiers: Chest pain type: unspecified Qualified Codes: R07.9 - Chest pain, unspecified (3) Sebaceous cyst Status: Acute (4) Insulin dependent diabetes mellitus with complications Status: Chronic (5) BMI 40.0-44.9, adult Status: Chronic (6) Acute on chronic renal failure Status: Acute (7) HLD (hyperlipidemia) Status: Chronic (8) CAD (coronary artery disease) Status: Chronic (9) Elevated troponin I level Status: Acute Clinical Quality Measures DVT/VTE Risk/Contraindication: Risk Factor Score Per Nursin RFS Level Per Nursing on Admit: 4+=Very High ELI CASTILLO DO Jan 23, 2020 07:09
[2020-01-23] MEDS: NS IV 1000 ML 1,000 ML IV SCH ×3 (08:06→18:11)
[2020-01-23] MEDS: ASPIRIN E.C. 81 MG (ECOTRIN) TAB PO SCH (10:13)
[2020-01-23] MEDS: ENOXAPARIN 60 MG/0.6 ML (LOVENOX) SYR SC SCH ×2 (11:16→23:08)
[2020-01-23] MEDS ORDERED: FURO20TA4 PO (15:30)
[2020-01-23] MEDS ORDERED: DULA1.5P2 SC (15:30)
[2020-01-23] MEDS ORDERED: INSU100I23 SQ (15:48)
--- NOTE | 2020-01-23 15:50 | NUR ---
SPOKE WITH THE PT ( I CALLED HIS ROOM PHONE) HE HAD A MED LIST ON FILE FROM [facility], WENT THRU THE EXT MED HISTORY AND CALLED [facility] TO COMPLETE THE MED REC PT DOES NOT KNOW THE NAMES OF HIS MEDICATIONS AND WANTED TO ME CONTACT [facility]/ [facility] TO GET THE INFORMATION. THE MED LIST FROM [facility] HAD MEDICATIONS THAT THE PT HAS NOT FILLED RECENTLY (LISINOPRIL 40MG, [id number], DULERA, DUONEB, AND PROAIR) I DID NOT INCLUDE THESE IN THE MED REC. LISINOPRIL 40MG WAS PRESCRIBED BY DR. ROSE LAST TIME HE WAS HERE (SEP 2019) PT DOESNT THINK HE IS TAKING THIS MED (IT IS LISTED ON THE [facility] MED LIST) BUT IT WAS ONLY FILLED ONCE ON 09-28-2019 # 30- FOR THIS REASON IT WAS LEFT OFF THE MED REC THE FOLLOWING FILL DATES WERE NOT LISTED ON THE EXT MED HISTORY: 10-30-2019 ASPIRIN EC 325MG #90/90DS 01-19-2020 HUMALOG NATHALIE #6 PENS
--- NOTE | 2020-01-23 16:36 | Consultation-Cardiology ---
HPI-Cardiology Cardiology Consultation Date of Consultation 01/23/20 Date of Admission Time Seen by Provider: 16:00 Indication: Chest pain HPI 69 years old gentleman with history of coronary artery disease, recurrent chest pain, chronic renal insufficiency. Has abscess on his back. Has been having fever on and off. Reporting episodes of chest pain and back pain shortness of b reath on exertion. Noted to have mildly elevated troponin level. Patient was tested for COVID and it was negative. Currently laying on his side. Unable to lay down on his back. Home Medications & Allergies Allergies: Coded Allergies: No Known Drug Allergies (Unverified , 10/08/11) Home Medication List Reviewed: Yes MCS-Hpfpqu-Tizcvt Hx Patient Social History Marital Status: Employed/Student: employed, retired Alcohol Use: Denies Use Recreational Drug Use: No Smoking Status: Never a Smoker 2nd Hand Smoke Exposure: No Recent Foreign Travel: No Recent Infectious Disease Expo: No Recent Hopitalizations: No Immunizations Up To Date Tetanus Booster (TDap): Unknown Past Medical History Discussed below Family Medical History Significant Family History: CAD Under 55 Years Old Family History: Cardiovascular disease 19 FATHER Completed stroke G8 BROTHER Diabetes mellitus G8 BROTHER Kidney disease G8 BROTHER Neoplasm 19 MOTHER Review of Systems-General Review of Systems Constitutional: see HPI; No chills; fever, malaise; No weakness EENTM: nose congestion; No throat pain Respiratory: see HPI; No cough; dyspnea on exertion, short of breath Cardiovascular: see HPI, chest pain, edema; No Hx of Intervention, No palpitations, No syncope, No vascular heart diseas, No other Gastrointestinal: see HPI; No abdominal pain; nausea Genitourinary: no symptoms reported, see HPI Musculoskeletal: see HPI, back pain, muscle pain Skin: see HPI, change in color, lesions Psychiatric/Neurological: See HPI; Denies Headache, Denies Weakness All Other Systems Reviewed Negative Unless Noted: Yes Reviewed Test Results Reviewed Test Results Lab Laboratory Tests Test 01/23/20 11:15 01/23/20 16:23 01/23/20 20:01 01/24/20 03:00 Range/Units Glucometer 120 H 111 H 129 H 70-110 MG/DL White Blood Count 14.4 H 4.3-11.0 10^3/uL Red Blood Count 4.30 L 4.35-5.85 10^6/uL Hemoglobin 12.2 L 13.3-17.7 G/DL Hematocrit 36 L 40-54 % Mean Corpuscular Volume 83 80-99 FL Mean Corpuscular Hemoglobin 28 25-34 PG Mean Corpuscular Hemoglobin Concent 34 32-36 G/DL Red Cell Distribution Width 13.2 10.0-14.5 % Platelet Count 197 130-400 10^3/uL Mean Platelet Volume 10.6 H 7.4-10.4 FL Neutrophils (%) (Auto) 84 H 42-75 % Lymphocytes (%) (Auto) 8 L 12-44 % Monocytes (%) (Auto) 8 0-12 % Eosinophils (%) (Auto) 0 0-10 % Basophils (%) (Auto) 0 0-10 % Neutrophils # (Auto) 12.1 H 1.8-7.8 X 10^3 Lymphocytes # (Auto) 1.1 1.0-4.0 X 10^3 Monocytes # (Auto) 1.1 H 0.0-1.0 X 10^3 Eosinophils # (Auto) 0.0 0.0-0.3 10^3/uL Basophils # (Auto) 0.0 0.0-0.1 10^3/uL Sodium Level 133 L 135-145 MMOL/L Potassium Level 3.8 3.6-5.0 MMOL/L Chloride Level 103 98-107 MMOL/L Carbon Dioxide Level 19 L 21-32 MMOL/L Anion Gap 11 5-14 MMOL/L Blood Urea Nitrogen 20 H 7-18 MG/DL Creatinine 1.26 0.60-1.30 MG/DL Estimat Glomerular Filtration Rate 57 BUN/Creatinine Ratio 16 Glucose Level 137 H 70-105 MG/DL Calcium Level 7.7 L 8.5-10.1 MG/DL Corrected Calcium 8.4 L 8.5-10.1 MG/DL Total Bilirubin 0.8 0.1-1.0 MG/DL Aspartate Amino Transf (AST/SGOT) 31 5-34 U/L Alanine Aminotransferase (ALT/SGPT) 21 0-55 U/L Alkaline Phosphatase 82 40-136 U/L Troponin I 0.052 H <0.028 NG/ML Total Protein 5.9 L 6.4-8.2 GM/DL Albumin 3.1 L 3.2-4.5 GM/DL Physical Exam Physical Exam Vital Signs Vital Signs - First Documented 01/22/20 09:27 Temp 37.3 Pulse 86 Resp 20 B/P (MAP) 197/83 (121) Pulse Ox 94 O2 Delivery Room Air Capillary Refill : Less Than 3 Seconds Height, Weight, BMI Height: 5'7.00" Weight: 284lbs. 2.0oz. 128.796874ry; 41.17 BMI Method:Stated General Appearance: Mild Distress, Obese Eyes: Bilateral Eye Normal Inspection, Bilateral Eye PERRL, Bilateral Eye EOMI HEENT: PERRL/EOMI, TMs Normal, Normal ENT Inspection, Pharynx Normal, Moist Mucous Membranes Neck: Full Range of Motion, Normal Inspection Respiratory: Lungs Clear, Normal Breath Sounds, No Accessory Muscle Use Cardiovascular: Regular Rate, Rhythm, No Edema, Normal Peripheral Pulses Gastrointestinal: Normal Bowel Sounds, Non Tender, Soft Back: No Vertebral Tenderness, Other (a 6 cm diameter tender, non-erythematous mass under the dermis just the right side of his thoracic spine. Small area about 2 cm diameter of erythema and induration without pointing.) Extremity: Normal Capillary Refill, Normal Inspection, Normal Range of Motion Neurologic/Psychiatric: Alert, No Motor/Sensory Deficits Skin: Normal Color, Warm/Dry Lymphatic: No Adenopathy A/P-Cardiology Admission Diagnosis Chest pain Non-ST elevation myocardial infarction Coronary artery disease Hypertension Assessment/Plan Chest pain, nonspecific etiology, mild elevation in troponin level. Discussed the management plan, recommended cardiac catheterization, patient cannot lay down on his back. Asking to wait and postpone the procedure. Dyspnea on exertion, history of COPD, managed by primary care team Abscess on the back. Surgery were consulted. Chronic renal insufficiency. Continue to monitor renal function. Coronary artery disease mild to moderate disease per cardiac catheterization 2011, last stress test was done in April 2018 as described above. Hypertension, restart home medication, monitor blood pressure Hyperlipidemia, monitor lipids Diabetes mellitus, followed and managed by primary care physician Obesity, BMI 42, we discussed weight loss. Family history of coronary artery disease. Clinical Quality Measures DVT/VTE Risk/Contraindication: Risk Factor Score Per Nursin RFS Level Per Nursing on Admit: 4+=Very High RODERICK BOO MD Jan 23, 2020 16:36
--- NOTE | 2020-01-23 20:11 | NUR ---
DR SHARP CONTACTED DUE TO PT HAVING 100 UNITS OF LEVEMIR ORDERED AT 2100, HOWEVER PT BLOOD GLUCOSE WAS ONLY 129. DR SHARP GAVE ORDERS TO ONLY GIVE 20 UNITS OF LEVEMIR TONIGHT.
[2020-01-24] MEDS: NS IV 1000 ML 1,000 ML IV SCH ×3 (01:34→22:45)
[2020-01-24] MEDS: ACETAMINOPHEN 500 MG TAB (TYLENOL) PO PRN (02:58)
[2020-01-24 03:07] VITALS: BP 154/70
[2020-01-24 03:18] LABS: BASOPHILS % (AUTO) 0 % (0-10); EOSINOPHILS % (AUTO) 0 % (0-10); HEMATOCRIT 36 % (40-54); HEMOGLOBIN 12.2 G/DL (13.3-17.7); LYMPHOCYTES # (AUTO) 1.1 X 10^3 (1.0-4.0); LYMPHOCYTES % (AUTO) 8 % (12-44); MEAN CORPUSCULAR HEMOGLOBIN 28 PG (25-34); MEAN CORPUSCULAR HGB CONC 34 G/DL (32-36); MEAN CORPUSCULAR VOLUME 83 FL (80-99); MEAN PLATELET VOLUME 10.6 FL (7.4-10.4); MONOCYTES # (AUTO) 1.1 X 10^3 (0.0-1.0); MONOCYTES % (AUTO) 8 % (0-12); NEUTROPHILS # (AUTO) 12.1 X 10^3 (1.8-7.8); NEUTROPHILS % (AUTO) 84 % (42-75); PLATELET COUNT 197 10^3/uL (130-400); RED CELL DISTRIBUTION WIDTH 13.2 % (10.0-14.5); WHITE BLOOD COUNT 14.4 10^3/uL (4.3-11.0)
[2020-01-24 03:34] LABS: ALBUMIN 3.1 GM/DL (3.2-4.5)
[2020-01-24 03:35] LABS: POTASSIUM 3.8 MMOL/L (3.6-5.0)
[2020-01-24 03:36] LABS: CALCIUM 7.7 MG/DL (8.5-10.1)
[2020-01-24 03:37] LABS: TOTAL PROTEIN 5.9 GM/DL (6.4-8.2)
[2020-01-24 03:39] LABS: BILIRUBIN,TOTAL 0.8 MG/DL (0.1-1.0)
[2020-01-24 03:41] LABS: CREATININE SERUM 1.26 MG/DL (0.60-1.30)
[2020-01-24] MEDS: inSUlin ASPART (NovoLOG) 1 UNIT/0.01 ML (CHARGE PER UNIT) SC SCH ×3 (05:18→16:15)
[2020-01-24] MEDS ORDERED: LIDOCAINE 1% INJ 20 ML 20 ML VIAL ONE (07:41)
[2020-01-24] MEDS ORDERED: HEParin (CATH LAB) 0 ML IV ONE (07:41)
[2020-01-24 07:50] VITALS: BP 185/71
[2020-01-24] MEDS: ASPIRIN E.C. 81 MG (ECOTRIN) TAB PO SCH (08:43)
--- NOTE | 2020-01-24 09:27 | Cardiology Progress Note ---
Subjective Date Seen by Provider: Jan 24, 2020 Time Seen by Provider: 09:25 Subjective/Events-last exam Patient is laying down in his side. Unable to lay down on his back. Discussed the need for cardiac catheterization, patient is asking to wait and postpone the procedure, cannot lay down on his back. Awaiting surgical evaluation Review of Systems General: No Chills, No Night Sweats, No Fatigue, No Malaise, No Appetite, No Other HEENT: No Head Aches, No Visual Changes, No Eye Pain, No Ear Pain, No Dysphasia, No Sinus Congestion, No Post Nasal Drip, No Sore Throat, No Other Pulmonary: Dyspnea; No Cough, No Pleuritic Chest Pain, No Other Cardiovascular: No: Chest Pain, Palpitations, Orthopnea, Paroxysmal Noc. Dysp margot, Edema, Lt Headedness, Other Focused Exam Lactate Level 01/22/20 10:25: Lactic Acid Level 1.67 Objective-Cardiology Exam Last Set of Vital Signs Vital Signs 01/24/20 01/24/20 07:50 08:00 Temp 37.2 Pulse 87 Resp 20 B/P (MAP) 185/71 (109) Pulse Ox 97 O2 Delivery Room Air Capillary Refill : Less Than 3 Seconds I&O Intake and Output 01/24/20 00:00 Intake Total 500 ml Balance 500 ml Intake Oral 500 ml # Voids 9 General: Alert, Oriented X3, Cooperative HEENT: Atraumatic, PERRLA Neck: Supple, No JVD, No Thyromegaly Lungs: Clear to Auscultation, Normal Air Movement Heart: Regular Rate, Normal S1, Normal S2, No Murmurs Abdomen: Normal Bowel Sounds, Soft, No Tenderness, No Hepatosplenomegaly, No Masses Extremities: No Clubbing, No Cyanosis, Normal Pulses, No Tenderness/Swelling, Other (Mild edema) Skin: No Rashes, No Breakdown, Other (Abscess on the back) Neuro: Normal Gait, Normal Speech, Strength at 5/5 X4 Ext, Normal Tone, Sensation Intact Psych/Mental Status: Mental Status NL, Mood NL Results Lab Laboratory Tests 01/24/20 03:00 A/P-Cardiology Admission Diagnosis Chest pain Non-ST elevation myocardial infarction Coronary artery disease Hypertension Assessment/Plan Chest pain, non-ST elevation myocardial infarction, mild elevation in troponin level. Discussed the need for cardiac catheterization, patient requested to wait at this time, he cannot lay down on his back. Dyspnea on exertion, history of COPD, managed by primary care team Abscess on the back. Surgery were consulted. Chronic renal insufficiency. Continue to monitor renal function. Coronary artery disease mild to moderate disease per cardiac catheterization 2011, last stress test was done in April 2018 as described above. Hypertension, monitor blood pressure Hyperlipidemia, monitor lipids Diabetes mellitus, followed and managed by primary care physician Obesity, BMI 42, we discussed weight loss. Family history of coronary artery disease. Clinical Quality Measures DVT/VTE Risk/Contraindication: Risk Factor Score Per Nursin RFS Level Per Nursing on Admit: 4+=Very High RODERICK BOO MD Jan 24, 2020 09:27
[2020-01-24] MEDS: ENOXAPARIN 40 MG/0.4 ML (LOVENOX) SYR SQ SCH ×2 (10:31→21:30)
--- NOTE | 2020-01-24 10:31 | NUR ---
held lovenox due to possible surgery today with Dr. Lynch
--- NOTE | 2020-01-24 10:33 | Progress Note - Hospitalist ---
Subjective HPI/CC On Admission Date Seen by Provider: Jan 24, 2020 Time Seen by Provider: 10:00 CC: Chest pain with slightly elevated troponin HPI: This is a 69yoWM clinic Pt of [facility] who presented to the ER with chest pain with slightly elevated troponin but PMH of renal insufficiency, creatinine of 1.6, and WBC of 14, having a back sebaceous cyst that was attempted to be drained while in the ER but he was swabbed for COVID for a sporadic fever, subjectively the Pt reported so he is still remains in isolation. At this current time Pt is sleeping on his left side, denied any chest pain, we will have general surgery look at the sebaceous cyst and make a decision on that once the COVID test is back which likely will be presumptively negative. We will obtain cardiology consultation and close management in the meantime. Subjective/Events-last exam Right upper back shows a very hard area consistent with perhaps an abscess I saw the pt with Dr. Lynch and he examined him and ordered a soft tissue ultrasound IV antibiotics started of Vanc and Zosyn and Procalcitonin is elevated at 0.85 Percocet ordered for pain WC 14.4 Review of Systems General: Fatigue Musculoskeletal: back pain Focused Exam Lactate Level 01/22/20 10:25: Lactic Acid Level 1.67 Objective Exam Vital Signs Vital Signs Date Time Temp Pulse Resp B/P (MAP) Pulse Ox O2 Delivery O2 Flow Rate FiO2 01/24/20 19:00 83 01/24/20 16:00 96 Room Air 01/24/20 15:31 37.2 20 163/78 (106) Capillary Refill : Less Than 3 Seconds General Appearance: No Apparent Distress, WD/WN, Chronically ill Respiratory: Chest Non Tender, Lungs Clear, Normal Breath Sounds, No Accessory Muscle Use, No Respiratory Distress Cardiovascular: Regular Rate, Rhythm, No Edema, No Gallop, No JVD, No Murmur, Normal Peripheral Pulses Neurologic/Psychiatric: Alert, Oriented x3, No Motor/Sensory Deficits, Normal Mood/Affect Skin: Rash (hardened area right upper back) Results/Procedures Lab Laboratory Tests 01/24/20 03:00 Patient resulted labs reviewed. Assessment/Plan Assessment and Plan Assess & Plan/Chief Complaint Assessment: Chest pain Elevated troponin needs cath patient states he can't lie on his back right now CRI DM insulin dependent Obesity HTN HLP Sebaceous cyst on back but no abscess and appears cellulitis on USG Plan: Cardiology consultation appreciated COVID-19 swab negative Monitor closely May need general surgery consultation for cyst and USG reveals no abscess so placed on empiric treatment with Vanc and Zosyn Diagnosis/Problems Diagnosis/Problems (1) Acute coronary syndrome Status: Acute (2) Chest pain Status: Acute Qualifiers: Chest pain type: unspecified Qualified Codes: R07.9 - Chest pain, unspecified (3) Sebaceous cyst Status: Acute (4) Insulin dependent diabetes mellitus with complications Status: Chronic (5) BMI 40.0-44.9, adult Status: Chronic (6) Acute on chronic renal failure Status: Acute (7) HLD (hyperlipidemia) Status: Chronic (8) CAD (coronary artery disease) Status: Chronic (9) Elevated troponin I level Status: Acute Clinical Quality Measures DVT/VTE Risk/Contraindication: Risk Factor Score Per Nursin RFS Level Per Nursing on Admit: 4+=Very High SONY SHARP DO Jan 24, 2020 10:33
[2020-01-24] MEDS ORDERED: VANCOMYCIN INJECTION 0.1 MG in NS (IVPB) 250 ML IV SCH (10:45)
[2020-01-24] MEDS ORDERED: PIPERACILLIN/TAZOBACTAM (BULK) 4.5 GM in NS (IVPB) 100 ML IV SCH (10:45)
[2020-01-24] MEDS ORDERED: PIPERACILLIN/TAZO 4.5 GM/NS 100 ML IV NR ×2 (11:00)
[2020-01-24] MEDS ORDERED: VANCOMYCIN 2000 MG/NS 500 ML IVPB IV NR ×2 (11:15)
--- NOTE | 2020-01-24 11:17 | NUR ---
CR 1.29; CR CL > 60; WT 122 KG; VANCO 2000 MG IV BOLUS THEN 1250 MG IV Q12H; TROUGH AFTER 3RD DOSE
[2020-01-24] MEDS: ALPRAZolam 0.25 MG (XANAX) TAB PO PRN (11:27)
[2020-01-24] MEDS: oxyCODONE/APAP 5/325MG (PERCOCET 5) TABLET PO PRN ×3 (11:28→21:30)
[2020-01-24 12:00] VITALS: BP 158/74
--- NOTE | 2020-01-24 14:57 | Diagnostic Imaging Report ---
INDICATION: Swollen lump in the upper back. Sonographic interrogation of the area of swelling upper back was performed. No underlying abnormality is seen. No fluid collection or abscess is detected. IMPRESSION: No sonographic abnormality is detected. Dictated by: Dictated on workstation # [id number]
[2020-01-24 15:31] VITALS: BP 163/78
--- NOTE | 2020-01-24 16:31 | Consultation - Surgery ---
History of Present Illness History of Present Illness Patient Consulted On(concetta/time) 01/24/20 16:25 Time Seen by Provider: 10:32 Reason for Visit: Chest pain History of Present Illness Surgery asked to consult regarding possible abscess on back. When I HPI per IM: HPI: This is a 69yoWM clinic Pt of [facility] who presented to the ER with chest pain with slightly elevated troponin but PMH of renal insufficiency, creatinine of 1.6, and WBC of 14, having a back sebaceous cyst that was attempted to be drained while in the ER but he was swabbed for COVID for a sporadic fever, subjectively the Pt reported so he is still remains in isolation. At this current time Pt is sleeping on his left side, denied any chest pain, we will have general surgery look at the sebaceous cyst and make a decision on that once the COVID test is back which likely will be presumptively negative. We will obtain cardiology consultation and close management in the meantime. When I spoke to pt he stated the back pain was one of the reasons he came in to the ER; he was refusing Cardiac Cath because it hurt too much to lay flat. He rated the pain as 5 out of 10, but unbearable if he lays flat on his back. He is unsure how long he has had this spot on his back. This pain does not radiated anywhere. Allergies and Home Medications Allergies Coded Allergies: No Known Drug Allergies (Unverified , 10/08/11) Home Medications Amlodipine Besylate 10 Mg Tablet, 10 MG PO DAILY, (Reported) Aspirin 325 Mg Tablet.dr, 325 MG PO DAILY, (Reported) Atorvastatin Calcium 20 Mg Tablet, 20 MG PO DAILY, (Reported) Dulaglutide 1.5 Mg/0.5 Ml Pen.injctr, 1.5 MG SC WEEKLY, (Reported) Furosemide 20 Mg Tablet, 20 MG PO DAILY, (Reported) Gabapentin 800 Mg Tablet, 800 MG PO TID, (Reported) Insulin Detemir 100 Unit/1 Ml Insuln.pen, 50 UNIT SQ BID, (Reported) Insulin Lispro 100 Unit/1 Ml Insuln.pen, 40 UNIT SQ TID, (Reported) Metoprolol Tartrate 100 Mg Tablet, 100 MG PO BID, (Reported) Oxycodone HCl/Acetaminophen 1 Each Tablet, 1 TAB PO Q4H PRN for PAIN-MODERATE, (Reported) Patient Home Medication List Home Medication List Reviewed: Yes Past Rsrxtog-Kgknws-Sntqxz Hx Patient Social History Alcohol Use: Denies Use Recreational Drug Use: No Smoking Status: Never a Smoker Former Smoker, Quit: Aug 09, 1979 2nd Hand Smoke Exposure: No Recent Foreign Travel: No Contact w/Someone Who Travel: No Recent Infectious Disease Expo: No Recent Hopitalizations: No Immunizations Up To Date Tetanus Booster (TDap): Unknown Seasonal Allergies Seasonal Allergies: No Surgeries History of Surgeries: Yes (BACK SURGERY 2017 AT [place]. KNEE SCOPE 20 YRS AGO) Surgeries: Cardiac, Neurological, Orthopedic Respiratory History of Respiratory Disorde: Yes Respiratory Disorders: Pneumonia, Sleep Apnea Cardiovascular History of Cardiac Disorders: Yes Cardiac Disorders: Hypertension Neurological History of Neurological Disord: Yes Neurological Disorders: Neuropathy Reproductive System Hx Reproductive Disorders: No Genitourinary History of Genitourinary Disor: Yes (LEFT KIDNEY CYST) Genitourinary Disorders: Renal Failure Gastrointestinal History of Gastrointestinal Di: No Musculoskeletal History of Musculoskeletal Dis: Yes Musculoskeletal Disorders: Arthritis Endocrine History of Endocrine Disorders: Yes Endocrine Disorders: Diabetes, Insulin dep HEENT History of HEENT Disorders: Yes (WEARS GLASSES) HEENT Disorders: Cataract Cancer History of Cancer: No Psychosocial History of Psychiatric Problem: No Integumentary History of Skin or Integumenta: No Blood Transfusions History of Blood Disorders: No Family Medical History Significant Family History: Cancer, CAD Under 55 Years Old, Diabetes Family Medial History: Cardiovascular disease 19 FATHER Completed stroke G8 BROTHER Diabetes mellitus G8 BROTHER Kidney disease G8 BROTHER Neoplasm 19 MOTHER Review of Systems-General Constitutional: chills, malaise, weakness EENTM: No blurred vision, No double vision, No mouth pain, No mouth swelling, No epistaxis Respiratory: No cough, No dyspnea on exertion, No short of breath Cardiovascular: chest pain, Hx of Intervention Gastrointestinal: No abdominal pain, No nausea, No vomiting Genitourinary: No dysuria, No frequency, No hematuria Musculoskeletal: back pain, joint swelling, muscle stiffness Skin: see HPI; No hx of skin cancer Psychiatric/Neurological: Denies Anxiety, Denies Depressed, Denies Seizure, Denies Tremors Physical Exam-General Problems Physical Exam Vital Signs Vital Signs - First Documented 01/22/20 09:27 Temp 37.3 Pulse 86 Resp 20 B/P (MAP) 197/83 (121) Pulse Ox 94 O2 Delivery Room Air Capillary Refill : Less Than 3 Seconds General Appearance: WD/WN, no apparent distress Eyes: Bilateral Eye PERRL, Bilateral Eye EOMI HEENT: pharynx normal; No scleral icterus (R), No scleral icterus (L) Neck: non-tender, supple Respiratory: lungs clear, normal breath sounds, no respiratory distress, no accessory muscle use Cardiovascular: regular rate, rhythm, no murmur Gastrointestinal: non tender, soft, no organomegaly Back: no vertebral tenderness, other (pt has some swelling on the right side of upper back associated with erythema; this is just lateral to what looks like small opening. 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1H, Lymphocytes # (Auto) 1.1, Monocytes # (Auto) 1.1H, Eosinophils # (Auto) 0.0, Basophils # (Auto) 0.0, Sodium Level 133L, Potassium Level 3.8, Chloride Level 103, Carbon Dioxide Level 19L, Anion Gap 11, Blood Urea Nitrogen 20H, Creatinine 1.26, Estimat Glomerular Filtration Rate 57, BUN/Creatinine Ratio 16, Glucose Level 137H, Calcium Level 7.7L, Corrected Calcium 8.4L, Total Bilirubin 0.8, Aspartate Amino Transf (AST/SGOT) 31, Alanine Aminotransferase (ALT/SGPT) 21, Alkaline Phosphatase 82, Troponin I 0.052H, Total Protein 5.9L, Albumin 3.1L, Procalcitonin 0.85H 01/24/20 11:06: Glucometer 164H 01/24/20 15:19: Glucometer 177H Microbiology 01/22/20 Blood Culture - Preliminary, Resulted Rocky 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 It also appeared that right next to this area was a probable sebaceous cyst; small 2 mm opening and some serosanguinous drainage. US was ordered to r/o abscess; however, no fluid collection was found. This is most likely a Cellulitis and ABX should treat it. Pt is adamant that he will not have cardiac cath because it hurts to bad to lay flat; he understands he can have heart attack and . Nothing surgical to do at this time; I will follow along in case anything changes. Clinical Quality Measures DVT/VTE Risk/Contraindication: Risk Factor Score Per Nursin RFS Level Per Nursing on Admit: 4+=Very High ANDRADE FONG DO Jan 24, 2020 16:31
--- NOTE | 2020-01-24 16:45 | NUR ---
Report given to KYLIE lovelace on 4th floor.
--- NOTE | 2020-01-24 17:00 | NUR ---
TRANSFERRED FROM CARDIAC STEPDOWN TO ROOM 410. ALERT AND COOPERATIVE. C/O OF PAIN IN RIGHT MIDDLE UPPER BACK AREA. LARGE CYSTS LIKE AREA APPROXIMATELY 10 CM WARM TO THE TOUCH AND SWOLLEN. WARM BLANKET APPLIED FOR COMFORT. IV SITE PER LEFT HAND WITH NS AT 100 CC/HR. SITE CLEAR. TELEMETRY ON.
[2020-01-24] MEDS: PIPERACILLIN/TAZO 4.5 GM/NS 100 ML IV SCH ×2 (17:04)
[2020-01-24 20:58] VITALS: BP 162/70
[2020-01-25] VITALS (7 sets, daily range): BP systolic 106–177; BP diastolic 50–79
[2020-01-25] MEDS: VANCOMYCIN 1250 MG/NS 250 ML IVPB IV SCH ×4 (01:23→12:05)
[2020-01-25] MEDS: PIPERACILLIN/TAZO 4.5 GM/NS 100 ML IV SCH ×6 (03:44→17:55)
[2020-01-25] MEDS: oxyCODONE/APAP 5/325MG (PERCOCET 5) TABLET PO PRN ×4 (04:21→18:43)
[2020-01-25 06:48] LABS: BASOPHILS % (AUTO) 0 % (0-10); EOSINOPHILS % (AUTO) 0 % (0-10); HEMATOCRIT 29 % (40-54); HEMOGLOBIN 9.7 G/DL (13.3-17.7); LYMPHOCYTES # (AUTO) 0.8 X 10^3 (1.0-4.0); LYMPHOCYTES % (AUTO) 6 % (12-44); MEAN CORPUSCULAR HEMOGLOBIN 28 PG (25-34); MEAN CORPUSCULAR HGB CONC 33 G/DL (32-36); MEAN CORPUSCULAR VOLUME 83 FL (80-99); MEAN PLATELET VOLUME 10.3 FL (7.4-10.4); MONOCYTES % (AUTO) 7 % (0-12); NEUTROPHILS # (AUTO) 13.3 X 10^3 (1.8-7.8); NEUTROPHILS % (AUTO) 88 % (42-75); PLATELET COUNT 182 10^3/uL (130-400); RED CELL DISTRIBUTION WIDTH 13.2 % (10.0-14.5); WHITE BLOOD COUNT 15.2 10^3/uL (4.3-11.0)
[2020-01-25] MEDS: inSUlin ASPART (NovoLOG) 1 UNIT/0.01 ML (CHARGE PER UNIT) SC SCH ×3 (06:52→17:55)
[2020-01-25 07:07] LABS: BUN/CREATININE RATIO 14; CALCIUM 6.7 MG/DL (8.5-10.1); CARBON DIOXIDE 17 MMOL/L (21-32); CHLORIDE 108 MMOL/L (98-107); CREATININE SERUM 1.04 MG/DL (0.60-1.30); GFR ESTIMATED > 60; GLUCOSE 87 MG/DL (70-105); POTASSIUM 2.9 MMOL/L (3.6-5.0); SODIUM 134 MMOL/L (135-145)
--- NOTE | 2020-01-25 07:15 | Progress Note - Hospitalist ---
Subjective HPI/CC On Admission Date Seen by Provider: Jan 25, 2020 Time Seen by Provider: 10:00 CC: Chest pain with slightly elevated troponin HPI: This is a 69yoWM clinic Pt of [facility] who presented to the ER with chest pain with slightly elevated troponin but PMH of renal insufficiency, creatinine of 1.6, and WBC of 14, having a back sebaceous cyst that was attempted to be drained while in the ER but he was swabbed for COVID for a sporadic fever, subjectively the Pt reported so he is still remains in isolation. At this current time Pt is sleeping on his left side, denied any chest pain, we will have general surgery look at the sebaceous cyst and make a decision on that once the COVID test is back which likely will be presumptively negative. We will obtain cardiology consultation and close management in the meantime. Subjective/Events-last exam Pt doing pretty well IV antibiotics seem to be helping the cellulitis and hardened tissue on his back Wants to go home today but I did talk him into one more day in the hospital with IV antibiotics and discharge tomorrow Ambien was requested so I did order that Labs reviewed Review of Systems General: Fatigue Musculoskeletal: back pain Focused Exam Lactate Level Objective Exam Vital Signs Vital Signs Date Time Temp Pulse Resp B/P (MAP) Pulse Ox O2 Delivery O2 Flow Rate FiO2 01/25/20 20:26 37.0 83 19 106/50 (68) 96 Room Air Capillary Refill : Less Than 3 Seconds General Appearance: No Apparent Distress, WD/WN Respiratory: Chest Non Tender, Lungs Clear, Normal Breath Sounds, No Accessory Muscle Use, No Respiratory Distress Cardiovascular: Regular Rate, Rhythm, No Edema, No Gallop, No JVD, No Murmur, Normal Peripheral Pulses Skin: Rash (hardened area on back improved less hard) Results/Procedures Lab Laboratory Tests 01/25/20 06:06 Patient resulted labs reviewed. Assessment/Plan Assessment and Plan Assess & Plan/Chief Complaint Assessment: Chest pain Elevated troponin needs cath patient states he can't lie on his back right now CRI DM insulin dependent Obesity HTN HLP Sebaceous cyst on back but no abscess and appears cellulitis on USG Plan: Cardiology consultation appreciated COVID-19 swab negative Monitor closely May need general surgery consultation for cyst and USG reveals no abscess so placed on empiric treatment with Vanc and Zosyn Diagnosis/Problems Diagnosis/Problems (1) Acute coronary syndrome Status: Acute (2) Chest pain Status: Acute Qualifiers: Chest pain type: unspecified Qualified Codes: R07.9 - Chest pain, unspecified (3) Sebaceous cyst Status: Acute (4) Insulin dependent diabetes mellitus with complications Status: Chronic (5) BMI 40.0-44.9, adult Status: Chronic (6) Acute on chronic renal failure Status: Acute (7) HLD (hyperlipidemia) Status: Chronic (8) CAD (coronary artery disease) Status: Chronic (9) Elevated troponin I level Status: Acute Clinical Quality Measures DVT/VTE Risk/Contraindication: Risk Factor Score Per Nursin RFS Level Per Nursing on Admit: 4+=Very High SONY SHARP DO Jan 25, 2020 07:15
[2020-01-25 07:24] LABS: BAND NEUTROPHILS 8 %; NEUTROPHILS % (MANUAL) 82 %
[2020-01-25 07:25] LABS: BASOPHILS % (MANUAL) 0 %; EOSINOPHILS % (MANUAL) 0 %; LYMPHOCYTES % (MANUAL) 7 %; MONOCYTES % (MANUAL) 3 %
[2020-01-25 07:28] LABS: RBC MORPH NORMAL; TOXIC GRANULATION/VACUOLAZATIO 1+
[2020-01-25] MEDS: ASPIRIN E.C. 81 MG (ECOTRIN) TAB PO SCH (08:48)
[2020-01-25] MEDS: ENOXAPARIN 40 MG/0.4 ML (LOVENOX) SYR SQ SCH ×2 (08:48→21:25)
[2020-01-25] MEDS: NS IV 1000 ML 1,000 ML IV SCH ×2 (08:49→19:30)
--- NOTE | 2020-01-25 09:04 | Cardiology Progress Note ---
Subjective Date Seen by Provider: Jan 25, 2020 Time Seen by Provider: 09:03 Subjective/Events-last exam Patient is laying down on his side. Still having back pain. Denied any chest pain Review of Systems General: No Chills, No Night Sweats, No Fatigue, No Malaise, No Appetite, No Other HEENT: No Head Aches, No Visual Changes, No Eye Pain, No Ear Pain, No Dysphasia , No Sinus Congestion, No Post Nasal Drip, No Sore Throat, No Other Pulmonary: No Dyspnea, No Cough, No Pleuritic Chest Pain, No Other Cardiovascular: No: Chest Pain, Palpitations, Orthopnea, Paroxysmal Noc. Dyspnea, Edema, Lt Headedness, Other Focused Exam Lactate Level 01/22/20 10:25: Lactic Acid Level 1.67 Objective-Cardiology Exam Last Set of Vital Signs Vital Signs 01/25/20 07:51 Temp 37.4 Pulse 84 Resp 21 B/P (MAP) 177/74 (108) Pulse Ox 97 O2 Delivery Room Air Capillary Refill : Less Than 3 Seconds I&O Intake and Output 01/25/20 00:00 Intake Total 3600 ml Balance 3600 ml Intake Oral 840 ml IV Total 2760 ml # Voids 10 # Bowel Movements 1 General: Alert, Oriented X3, Cooperative HEENT: Atraumatic, PERRLA Neck: Supple, No JVD, No Thyromegaly Lungs: Clear to Auscultation, Normal Air Movement Heart: Regular Rate, Normal S1, Normal S2, No Murmurs Abdomen: Normal Bowel Sounds, Soft, No Tenderness, No Hepatosplenomegaly, No Masses Extremities: No Clubbing, No Cyanosis, Normal Pulses, No Tenderness/Swelling, Other (Mild edema) Skin: No Rashes, No Breakdown, Other (Abscess on the back) Neuro: Normal Gait, Normal Speech, Strength at 5/5 X4 Ext, Normal Tone, Sensation Intact Psych/Mental Status: Mental Status NL, Mood NL Results Lab Laboratory Tests 01/25/20 06:06 A/P-Cardiology Admission Diagnosis Chest pain Non-ST elevation myocardial infarction Coronary artery disease Hypertension Assessment/Plan Chest pain, non-ST elevation myocardial infarction, mild elevation in troponin level. Discussed the need for cardiac catheterization, patient is still refusing to have the procedure done. We discussed in length the risk and benefits and he cannot lay down on his back. I can arrange for follow-up as an outpatient and we'll discuss the possibility of cardiac catheterization versus stress test as an outpatient. Cellulitis on the back. Significant back pain, receiving antibiotic, no fluid acute lesion noted by ultrasound. Managed by medical team. After she had Dr. Lynch's input Dyspnea on exertion, history of COPD, managed by primary care team Chronic renal insufficiency. Continue to monitor renal function. Coronary artery disease mild to moderate disease per cardiac catheterization 2011, last stress test was done in April 2018 as described above. Hypertension, monitor blood pressure Hyperlipidemia, monitor lipids Diabetes mellitus, followed and managed by primary care physician Obesity, BMI 42, we discussed weight loss. Family history of coronary artery disease. Clinical Quality Measures DVT/VTE Risk/Contraindication: Risk Factor Score Per Nursin RFS Level Per Nursing on Admit: 4+=Very High RODERICK BOO MD Jan 25, 2020 9:04 am
[2020-01-25] MEDS: ALPRAZolam 0.25 MG (XANAX) TAB PO PRN (12:32)
--- NOTE | 2020-01-25 14:15 | NUR ---
Pastoral care visit.
[2020-01-25] MEDS: ZOLPIDEM 5 MG (AMBIEN) TAB PO SCH (21:24)
[2020-01-25] MEDS: ONDANSETRON 4 MG/2 ML (SDV) Z0FRAN IVP PRN (21:25)
[2020-01-25] MEDS ORDERED: TROUGH ORDER-PHARMACY XX NR (23:00)
[2020-01-26] MEDS: VANCOMYCIN 1250 MG/NS 250 ML IVPB IV SCH ×4 (00:12→12:29)
[2020-01-26] MEDS: PIPERACILLIN/TAZO 4.5 GM/NS 100 ML IV SCH ×6 (01:49→22:52)
[2020-01-26 04:10] VITALS: BP 139/66
[2020-01-26] MEDS: oxyCODONE/APAP 5/325MG (PERCOCET 5) TABLET PO PRN ×3 (04:19→15:09)
[2020-01-26] MEDS: ONDANSETRON 4 MG/2 ML (SDV) Z0FRAN IVP PRN ×3 (05:08→21:45)
[2020-01-26] MEDS: inSUlin ASPART (NovoLOG) 1 UNIT/0.01 ML (CHARGE PER UNIT) SC SCH ×4 (06:23→17:56)
[2020-01-26 06:30] LABS: BASOPHILS % (AUTO) 0 % (0-10); EOSINOPHILS # (AUTO) 0.1 10^3/uL (0.0-0.3); EOSINOPHILS % (AUTO) 0 % (0-10); HEMATOCRIT 32 % (40-54); HEMOGLOBIN 11.1 G/DL (13.3-17.7); LYMPHOCYTES # (AUTO) 1.2 X 10^3 (1.0-4.0); LYMPHOCYTES % (AUTO) 6 % (12-44); MEAN CORPUSCULAR HEMOGLOBIN 29 PG (25-34); MEAN CORPUSCULAR HGB CONC 35 G/DL (32-36); MEAN CORPUSCULAR VOLUME 83 FL (80-99); MEAN PLATELET VOLUME 9.9 FL (7.4-10.4); MONOCYTES # (AUTO) 1.4 X 10^3 (0.0-1.0); MONOCYTES % (AUTO) 7 % (0-12); NEUTROPHILS # (AUTO) 18.7 X 10^3 (1.8-7.8); NEUTROPHILS % (AUTO) 88 % (42-75); PLATELET COUNT 252 10^3/uL (130-400); RED CELL DISTRIBUTION WIDTH 13.5 % (10.0-14.5); WHITE BLOOD COUNT 21.3 10^3/uL (4.3-11.0)
[2020-01-26 06:39] LABS: CHLORIDE 103 MMOL/L (98-107); SODIUM 130 MMOL/L (135-145)
[2020-01-26 06:40] LABS: CALCIUM 6.9 MG/DL (8.5-10.1); GLUCOSE 100 MG/DL (70-105)
[2020-01-26 06:42] LABS: CARBON DIOXIDE 18 MMOL/L (21-32)
[2020-01-26 06:44] LABS: CREATININE SERUM 1.09 MG/DL (0.60-1.30); GFR ESTIMATED > 60
[2020-01-26 06:45] LABS: BUN/CREATININE RATIO 14
[2020-01-26 08:00] VITALS: BP 152/71
[2020-01-26] MEDS ORDERED: TROUGH ORDER-PHARMACY XX NR (08:00)
[2020-01-26] MEDS: ASPIRIN E.C. 81 MG (ECOTRIN) TAB PO SCH (08:30)
[2020-01-26] MEDS: ENOXAPARIN 40 MG/0.4 ML (LOVENOX) SYR SQ SCH ×2 (08:30→21:20)
--- NOTE | 2020-01-26 10:57 | Cardiology Progress Note ---
Subjective Date Seen by Provider: Jan 26, 2020 Time Seen by Provider: 10:56 Subjective/Events-last exam Patient is laying down in bed, feeling better, still refusing cardiac catheter Review of Systems General: No Chills, No Night Sweats, No Fatigue, No Malaise, No Appetite, No Other HEENT: No Head Aches, No Visual Changes, No Eye Pain, No Ear Pain, No Dysphasia, No Sinus Congestion, No Post Nasal Drip, No Sore Throat, No Other Pulmonary: No Dyspnea, No Cough, No Pleuritic Chest Pain, No Other Musculoskeletal: back pain Objective-Cardiology Exam Last Set of Vital Signs Vital Signs 01/26/20 08:00 Temp 36.3 Pulse 81 Resp 20 B/P (MAP) 152/71 (98) Pulse Ox 96 O2 Delivery Room Air Capillary Refill : Less Than 3 Seconds I&O Intake and Output 01/26/20 00:00 Intake Total 4085.0 ml Output Total 4 ml Balance 4081.0 ml Intake Oral 1720 ml IV Total 2365.0 ml Output Urine Total 4 ml # Voids 7 # Bowel Movements 1 General: Alert, Oriented X3, Cooperative HEENT: Atraumatic, PERRLA Neck: Supple, No JVD, No Thyromegaly Lungs: Clear to Auscultation, Normal Air Movement Heart: Regular Rate, Normal S1, Normal S2, No Murmurs Abdomen: Normal Bowel Sounds, Soft, No Tenderness, No Hepatosplenomegaly, No Masses Extremities: No Clubbing, No Cyanosis, Normal Pulses, No Tenderness/Swelling, Other (Mild edema) Skin: No Breakdown, Other (erythema on the back) Neuro: Normal Gait, Normal Speech, Strength at 5/5 X4 Ext, Normal Tone, Sensation Intact Psych/Mental Status: Mental Status NL, Mood NL Results Lab Laboratory Tests 01/26/20 06:12 A/P-Cardiology Admission Diagnosis Chest pain Non-ST elevation myocardial infarction Coronary artery disease Hypertension Assessment/Plan Chest pain, non-ST elevation myocardial infarction, mild elevation in troponin level. Discussed the need for cardiac catheterization, patient is still refusing to have the procedure done. We discussed in length the risk and benefits and he cannot lay down on his back. I will arrange for follow-up as an outpatient and we'll discuss the possibility of cardiac catheterization versus stress test as an outpatient. Cellulitis on the back. Significant back pain, receiving antibiotic, no fluid acute lesion noted by ultrasound. Managed by medical team. After she had Dr. Lynch's input Dyspnea on exertion, history of COPD, managed by primary care team Chronic renal insufficiency. Continue to monitor renal function. Coronary artery disease mild to moderate disease per cardiac catheterization 2011, last stress test was done in April 2018 as described above. Hypertension, monitor blood pressure Hyperlipidemia, monitor lipids Diabetes mellitus, followed and managed by primary care physician Obesity, BMI 42, we discussed weight loss. Family history of coronary artery disease. Clinical Quality Measures DVT/VTE Risk/Contraindication: Risk Factor Score Per Nursin RFS Level Per Nursing on Admit: 4+=Very High RODERICK BOO MD Jan 26, 2020 10:57 am
[2020-01-26] MEDS ORDERED: TROUGH ORDER-PHARMACY XX ONE (11:00)
[2020-01-26] MEDS ORDERED: NS IV 500 ML 500 ML ONE (11:37)
--- NOTE | 2020-01-26 11:40 | Progress Note - Hospitalist ---
Subjective HPI/CC On Admission Date Seen by Provider: Jan 26, 2020 Time Seen by Provider: 10:00 CC: Chest pain with slightly elevated troponin HPI: This is a 69yoWM clinic Pt of [facility] who presented to the ER with chest pain with slightly elevated troponin but PMH of renal insufficiency, creatinine of 1.6, and WBC of 14, having a back sebaceous cyst that was attempted to be drained while in the ER but he was swabbed for COVID for a sporadic fever, subjectively the Pt reported so he is still remains in isolation. At this current time Pt is sleeping on his left side, denied any chest pain, we will have general surgery look at the sebaceous cyst and make a decision on that once the COVID test is back which likely will be presumptively negative. We will obtain cardiology consultation and close management in the meantime. Subjective/Events-last exam Patient doing about the same Sleeping medication did not help him No bowel movement for several days Elevated white count to 21 today and fever has concerned me Updated Dr. Manzano and he will see the patient Area on his back is still very hard Check meds and labs Review of Systems Musculoskeletal: back pain Objective Exam Vital Signs Vital Signs Date Time Temp Pulse Resp B/P (MAP) Pulse Ox O2 Delivery O2 Flow Rate FiO2 01/26/20 20:28 38.2 01/26/20 19:49 91 22 169/72 (104) 98 Room Air Capillary Refill : Less Than 3 Seconds General Appearance: No Apparent Distress, WD/WN, Chronically ill Respiratory: Chest Non Tender, Lungs Clear, Normal Breath Sounds, No Accessory Muscle Use, No Respiratory Distress Cardiovascular: Regular Rate, Rhythm, No Edema, No Gallop, No JVD, No Murmur, Normal Peripheral Pulses Neurologic/Psychiatric: Alert, Oriented x3, No Motor/Sensory Deficits, Normal Mood/Affect Skin: Other (hardened right upper back area) Results/Procedures Lab Laboratory Tests 01/26/20 06:12 Patient resulted labs reviewed. Assessment/Plan Assessment and Plan Assess & Plan/Chief Complaint Assessment: Chest pain Elevated troponin needs cath patient states he can't lie on his back right now CRI DM insulin dependent Obesity HTN HLP Sebaceous cyst on back but no abscess and appears cellulitis on USG Plan: Cardiology consultation appreciated COVID-19 swab negative Monitor closely May need general surgery consultation for cyst and USG reveals no abscess so placed on empiric treatment with Vanc and Zosyn Diagnosis/Problems Diagnosis/Problems (1) Acute coronary syndrome Status: Acute (2) Chest pain Status: Acute Qualifiers: Chest pain type: unspecified Qualified Codes: R07.9 - Chest pain, unspecified (3) Sebaceous cyst Status: Acute (4) Insulin dependent diabetes mellitus with complications Status: Chronic (5) BMI 40.0-44.9, adult Status: Chronic (6) Acute on chronic renal failure Status: Acute (7) HLD (hyperlipidemia) Status: Chronic (8) CAD (coronary artery disease) Status: Chronic (9) Elevated troponin I level Status: Acute Clinical Quality Measures DVT/VTE Risk/Contraindication: Risk Factor Score Per Nursin RFS Level Per Nursing on Admit: 4+=Very High SONY SHARP DO Jan 26, 2020 11:40
[2020-01-26] MEDS ORDERED: MAGNESIUM 1 GM/100 ML IVPB 100 ML IV NR (11:45)
[2020-01-26] MEDS ORDERED: VANCOMYCIN 1,750 MG/NS 500 ML IVPB IV SCH ×2 (12:00)
[2020-01-26] MEDS: POTASSIUM CL 10MEQ/50ML IVPB 50 ML IV SCH ×4 (12:17→20:18)
[2020-01-26 12:30] VITALS: BP 150/65
[2020-01-26 13:03] VITALS: BP 150/65
--- NOTE | 2020-01-26 13:24 | NUR ---
RD ASSESSMENT PMHx: HTN; renal failure; DM; CAD PT INTERACTION: Pt was awake and pleasant during nutrition assessment. Pt states current appetite is "not good," and had been that way for 1 week. Note avg PO intake 25% x1d, per chart review. Pt states following a regular diet at home, and has no issues with chewing/swallowing food. Pt states no recent issues with nausea, vomiting, constipation, or diarrhea. Note last BM was 01/24, and pt currently on bowel regimen of colace PRN; and senna PRN, per chart review. Pt states unsure of recent wt changes. Note unable to determine recent wt hx, per chart review. Pt states current DM control is "fair, with my blood sugars going up and down." Note unable to determine recent HbA1c, per chart review. ABNORMAL NUTRITION-RELATED LAB VALUES LOW: Na 130; K 3.0; Ca 6.9 HIGH: Est. kcal needs: 9742-5725 kcal | 15-18 kcal/kg Est. Pro needs: 101-126 g Pro | 0.8-1.0 g Pro/kg PES STATEMENT: Inadequate oral intake (NI-2.1) related to loss of appetite as evidenced by pt interview | avg PO intake 25% x1d INTERVENTION: Continue with current diet order of Heart Healthy diet. Pt may benefit from consistent CHO restriction if blood glucose levels become elevated. Pt may benefit from nutrition supplementation if PO intake declines. Offered diet education on DM management, but pt declined at this time, stating not interested. Will continue to follow and reassess as pt needs, intake, and status change. MONITOR/EVALUATE: PO Intake; Plan of Care; Hydration Status; Weight Status; Lab Values Rebecca Hernandez, MS, RD, LD
--- NOTE | 2020-01-26 14:00 | NUR ---
PT COMPLAINING OF PAIN, DR SHARP SAID WE COULD USE IV MORPHINE FOR PAIN, NOT JUST CHEST PAIN.
--- NOTE | 2020-01-26 14:45 | NUR ---
PTS IV OCCULDED, THIS RN HAD ANOTHER RN TO TRY TO START IV, WITH NO LUCK. THE [facility] IV/MIDLINE RN WAS ON THE FLOOR AT THE TIME AND WENT WAS ABLE TO START MIDLINE TO LEFT UPPER ARM/AC AREA.
--- NOTE | 2020-01-26 15:28 | CONSULTATION REPORT ---
DATE OF SERVICE: 01/26/2020 ADMITTING PHYSICIAN: Dr. Castillo. HISTORY OF PRESENT ILLNESS: The patient is a 69-year-old male who came in with chest pain, found to have a slightly elevated troponin as well as renal insufficiency. At this time, the patient also has had complained of pain in the mid upper back, which had drained. However, had closed since that time, this was consistent with a sebaceous cyst. Since that time, he has been on antibiotics and been doing well; however, reports that he has had increased pain within the region. Upon examination, there is some overlying redness and erythema consistent with cellulitis. There is a central cord, which is firm consistent with the sebaceous cyst; however, there is no fluctuance to indicate any abscess at this time. PAST MEDICAL HISTORY: Diabetes, hypertension, sleep apnea, history of pneumonia, renal insufficiency, degenerative joint disease. PAST SURGICAL HISTORY: Knee arthroscopy, back surgery. ALLERGIES: No known drug allergies. MEDICATIONS: Amlodipine, aspirin, atorvastatin, , furosemide, gabapentin, detemir insulin, lispro insulin, metoprolol, oxycodone. SOCIAL HISTORY: Negative smoke, negative alcohol. FAMILY HISTORY: Noncontributory. VITAL SIGNS: Temperature 37.1, blood pressure 150/65, pulse 83, respirations 21, pulse oximetry 96% on room air. REVIEW OF SYSTEMS: Well-nourished male currently in no acute distress. He is not experiencing any shortness of breath or difficulty breathing. No chest pain, palpitations, diaphoresis. No nausea, vomiting, no diarrhea or constipation. No fever, chills, no recent inadvertent weight loss. All other review of systems negative. PHYSICAL EXAMINATION: CHEST: Few scattered rales and rhonchi bilaterally. HEART: Regular, no murmurs. EXTREMITIES: No lower extremity edema, negative Homans sign. HEENT: No scleral icterus. NECK: No cervical lymphadenopathy. ABDOMEN: Soft, nontender, nondistended. SKIN: Along the mid upper back is an area of redness and erythema with a central area that is firm. There is no fluctuance to indicate an abscess at this time. ASSESSMENT AND PLAN: A 69-year-old male with a mid upper back sebaceous cyst with surrounding cellulitis. We will continue to monitor for developing abscess and if so, we will proceed with incision and drainage of the abscess. We will also continue to monitor his vital signs for any fevers as well as his elevated white count. Job ID: [id number] DocumentID: [id number] Dictated Date: 01/26/2020 15:18:26 [place] Date: 01/26/2020 15:28:07 Dictated By: LEIF ALDANA MD
[2020-01-26 16:00] VITALS: BP 156/70
[2020-01-26] MEDS: NS IV 500 ML 500 ML IV SCH (16:33)
--- NOTE | 2020-01-26 16:40 | NUR ---
THIS RN CALLED PHARMACY AND SPOKE TO TATI. NURSE CHANNEL ACCOUNT MANAGER INFORMED TATI THAT VANCO WAS STARTED LATE DUE TO IV LINE ACCESS AND THAT PT HAD 4 BAGS OF K AND 1 BAG MG TO ADMIN WELL AND WOULD MAKE HIS ZOSYN LATE. TATI SAID HE WOULD RESCHEDULE VANC TO 3 HOURS LATER ON EMAR AND SCHEDULE ZOSYN FOR 2200.
--- NOTE | 2020-01-26 18:00 | NUR ---
PTS BLOOD SUGAR IS 77 AND HE IS REFUSING SUPPER, DR SHARP NOTIFIED AND SHE SAID IT WAS OK TO HOLD SCHEDULED INSULIN.
[2020-01-26 19:49] VITALS: BP 169/72
[2020-01-26] MEDS: ACETAMINOPHEN 500 MG TAB (TYLENOL) PO PRN (20:28)
[2020-01-26] MEDS ORDERED: MAGNESIUM 1 GM/100 ML IVPB 100 ML IV ONE (21:15)
[2020-01-26] MEDS: ZOLPIDEM 5 MG (AMBIEN) TAB PO SCH (21:20)
[2020-01-27 00:16] VITALS: BP 171/50
[2020-01-27] MEDS ORDERED: VANCOMYCIN 1250 MG/NS 250 ML IVPB IV SCH ×2 (03:00)
[2020-01-27] MEDS: oxyCODONE/APAP 5/325MG (PERCOCET 5) TABLET PO PRN (03:08)
[2020-01-27 04:00] VITALS: BP 124/71
[2020-01-27 04:06] LABS: BASOPHILS % (AUTO) 0 % (0-10); EOSINOPHILS # (AUTO) 0.2 10^3/uL (0.0-0.3); EOSINOPHILS % (AUTO) 1 % (0-10); HEMATOCRIT 32 % (40-54); HEMOGLOBIN 10.8 G/DL (13.3-17.7); LYMPHOCYTES # (AUTO) 1.2 X 10^3 (1.0-4.0); LYMPHOCYTES % (AUTO) 7 % (12-44); MEAN CORPUSCULAR HEMOGLOBIN 28 PG (25-34); MEAN CORPUSCULAR HGB CONC 34 G/DL (32-36); MEAN CORPUSCULAR VOLUME 83 FL (80-99); MEAN PLATELET VOLUME 9.9 FL (7.4-10.4); MONOCYTES # (AUTO) 1.2 X 10^3 (0.0-1.0); MONOCYTES % (AUTO) 7 % (0-12); NEUTROPHILS # (AUTO) 15.7 X 10^3 (1.8-7.8); NEUTROPHILS % (AUTO) 86 % (42-75); PLATELET COUNT 264 10^3/uL (130-400); RED CELL DISTRIBUTION WIDTH 13.5 % (10.0-14.5); WHITE BLOOD COUNT 18.2 10^3/uL (4.3-11.0)
[2020-01-27 04:11] LABS: ALBUMIN 2.4 GM/DL (3.2-4.5)
[2020-01-27 04:12] LABS: CHLORIDE 102 MMOL/L (98-107); POTASSIUM 3.5 MMOL/L (3.6-5.0); SODIUM 130 MMOL/L (135-145)
[2020-01-27 04:14] LABS: GLUCOSE 123 MG/DL (70-105)
[2020-01-27 04:15] LABS: CARBON DIOXIDE 21 MMOL/L (21-32)
[2020-01-27 04:16] LABS: BILIRUBIN,TOTAL 0.5 MG/DL (0.1-1.0)
[2020-01-27 04:17] LABS: ALKALINE PHOSPHATASE 89 U/L (40-136)
[2020-01-27 04:18] LABS: CREATININE SERUM 1.17 MG/DL (0.60-1.30); GFR ESTIMATED > 60
[2020-01-27 04:19] LABS: BUN/CREATININE RATIO 13
[2020-01-27 04:20] LABS: ALANINE AMINOTRANSFERASE 24 U/L (0-55)
[2020-01-27] MEDS: PIPERACILLIN/TAZO 4.5 GM/NS 100 ML IV SCH ×2 (06:34)
[2020-01-27] MEDS: inSUlin ASPART (NovoLOG) 1 UNIT/0.01 ML (CHARGE PER UNIT) SC SCH (07:36)
[2020-01-27] MEDS: NS IV 500 ML 500 ML IV SCH (07:39)
[2020-01-27 08:00] VITALS: BP 185/80
[2020-01-27] MEDS: ASPIRIN E.C. 81 MG (ECOTRIN) TAB PO SCH (09:04)
[2020-01-27] MEDS: ENOXAPARIN 40 MG/0.4 ML (LOVENOX) SYR SQ SCH (09:04)
[2020-01-27] MEDS: ONDANSETRON 4 MG/2 ML (SDV) Z0FRAN IVP PRN (10:25)
--- NOTE | 2020-01-27 10:49 | Progress Note ---
Subjective Date Seen by a Provider: Jan 27, 2020 Time Seen by a Provider: 10:15 Subjective/Events-last exam Patient seen with Dr. Manzano. Patient reports pain is better of the back. Denies any fever/chills. Reported some nausea but no vomiting. Having BMs. Focused Exam Lactate Level 01/27/20 03:45: Lactic Acid Level 1.04 Objective Exam Vital Signs Date Time Temp Pulse Resp B/P (MAP) Pulse Ox O2 Delivery O2 Flow Rate FiO2 01/27/20 09:00 Room Air 01/27/20 08:00 37.1 84 20 185/80 (115) 98 Room Air 01/27/20 07:00 80 01/27/20 04:00 37.5 86 27 124/71 (88) 96 Room Air 01/27/20 00:16 37.1 81 20 171/50 (90) 94 Room Air 01/26/20 21:00 37.6 01/26/20 20:30 Room Air 01/26/20 20:28 38.2 01/26/20 19:49 38.1 91 22 169/72 (104) 98 Room Air 01/26/20 19:00 90 01/26/20 16:00 36.9 76 22 156/70 (98) 95 Room Air 01/26/20 13:03 37.1 83 21 150/65 (93) 96 Room Air 01/26/20 12:30 37.0 83 21 150/65 (93) 96 Room Air 01/26/20 12:25 81 I & O 01/27/20 07:00 Intake Total 2140 ml Balance 2140 ml Capillary Refill : Less Than 3 Seconds General Appearance: No Apparent Distress, WD/WN Neck: Full Range of Motion, Normal Inspection, Supple Respiratory: Normal Breath Sounds, No Accessory Muscle Use, No Respiratory Distress Cardiovascular: Regular Rate, Rhythm, No Edema Gastrointestinal: normal bowel sounds, non tender, soft Extremity: Normal Capillary Refill, Normal Inspection, Normal Range of Motion Skin: Other (There is an area of the mid-upper back that is firm with some mild erythema. No fluctuance to indicate any abscess.) Results Lab Laboratory Tests 01/26/20 11:00: Glucometer 145H 01/26/20 16:49: Glucometer 77 01/26/20 20:21: Glucometer 138H 01/27/20 03:45: White Blood Count 18.2H, Red Blood Count 3.83L, Hemoglobin 10.8L, Hematocrit 32L , Mean Corpuscular Volume 83, Mean Corpuscular Hemoglobin 28, Mean Corpuscular Hemoglobin Concent 34, Red Cell Distribution Width 13.5, Platelet Count 264, Mean Platelet Volume 9.9, Neutrophils (%) (Auto) 86H, Lymphocytes (%) (Auto) 7L, Monocytes (%) (Auto) 7, Eosinophils (%) (Auto) 1, Basophils (%) (Auto) 0, Neutrophils # (Auto) 15.7H, Lymphocytes # (Auto) 1.2, Monocytes # (Auto) 1.2H, Eosinophils # (Auto) 0.2, Basophils # (Auto) 0.0, Sodium Level 130L, Potassium Level 3.5L, Chloride Level 102, Carbon Dioxide Level 21, Anion Gap 7, Blood Urea Nitrogen 15, Creatinine 1.17, Estimat Glomerular Filtration Rate > 60, BUN/Creatinine Ratio 13, Glucose Level 123H, Lactic Acid Level 1.04, Calcium Level 7.0L, Corrected Calcium 8.3L, Total Bilirubin 0.5, Aspartate Amino Transf (AST/SGOT) 42H, Alanine Aminotransferase (ALT/SGPT) 24, Alkaline Phosphatase 89, Total Protein 5.0L, Albumin 2.4L, Procalcitonin 0.87H Microbiology 01/22/20 Blood Culture - Preliminary, Resulted Staph, Coag 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 WBC 18.2 VSS Continue abx, pain, and nausea medication Will continue to monitor labs and VS as well as for development of abscess Clinical Quality Measures DVT/VTE Risk/Contraindication: Risk Factor Score Per Nursin RFS Level Per Nursing on Admit: 4+=Very High XAIO KASPER BOOKS SALESPERSON Jan 27, 2020 10:49
--- NOTE | 2020-01-27 11:21 | Cardiology Progress Note ---
Subjective Date Seen by Provider: Jan 27, 2020 Time Seen by Provider: 11:20 Subjective/Events-last exam Patient is laying down in bed, still having some pain in his back, discussed again the possibility of cardiac catheterization, patient does not want the procedure done during this admission Review of Systems General: No Chills, No Night Sweats, No Fatigue, No Malaise, No Appetite, No O ther HEENT: No Head Aches, No Visual Changes, No Eye Pain, No Ear Pain, No Dys phasia, No Sinus Congestion, No Post Nasal Drip, No Sore Throat, No Other Pulmonary: No Dyspnea, No Cough, No Pleuritic Chest Pain, No Other Cardiovascular: No: Chest Pain, Palpitations, Orthopnea, Paroxysmal Noc. Dyspnea, Edema, Lt Headedness, Other Focused Exam Lactate Level 01/27/20 03:45: Lactic Acid Level 1.04 Objective-Cardiology Exam Last Set of Vital Signs Vital Signs 01/27/20 01/27/20 08:00 09:00 Temp 37.1 Pulse 84 Resp 20 B/P (MAP) 185/80 (115) Pulse Ox 98 O2 Delivery Room Air Capillary Refill : Less Than 3 Seconds I&O Intake and Output 01/27/20 00:00 Intake Total 2322.5 ml Balance 2322.5 ml Intake Oral 1940 ml IV Total 382.5 ml # Voids 5 # Bowel Movements 1 General: Alert, Oriented X3, Cooperative HEENT: Atraumatic, PERRLA Neck: Supple, No JVD, No Thyromegaly Lungs: Clear to Auscultation, Normal Air Movement Heart: Regular Rate, Normal S1, Normal S2, No Murmurs Abdomen: Normal Bowel Sounds, Soft, No Tenderness, No Hepatosplenomegaly, No Masses Extremities: No Clubbing, No Cyanosis, Normal Pulses, No Tenderness/Swelling, Other (Mild edema) Skin: No Breakdown, Other (erythema on the back) Neuro: Normal Gait, Normal Speech, Strength at 5/5 X4 Ext, Normal Tone, Sensation Intact Psych/Mental Status: Mental Status NL, Mood NL Results Lab Laboratory Tests 01/27/20 03:45 A/P-Cardiology Admission Diagnosis Chest pain Non-ST elevation myocardial infarction Coronary artery disease Hypertension Assessment/Plan Chest pain, non-ST elevation myocardial infarction, mild elevation in troponin level. Discussed the need for cardiac catheterization, patient is still refusing to have the procedure done. We discussed in length the risk and benefits and he cannot lay down on his back. I will arrange for follow-up as an outpatient and we'll discuss the possibility of cardiac catheterization versus stress test as an outpatient. Cellulitis on the back. Improving, slightly worse leukocytosis, still having pain in his back. Dyspnea on exertion, history of COPD, managed by primary care team Chronic renal insufficiency. Continue to monitor renal function. Coronary artery disease mild to moderate disease per cardiac catheterization 2011, last stress test was done in April 2018 as described above. Hypertension, monitor blood pressure Hyperlipidemia, monitor lipids Diabetes mellitus, followed and managed by primary care physician Obesity, BMI 42, we discussed weight loss. Family history of coronary artery disease. Clinical Quality Measures DVT/VTE Risk/Contraindication: Risk Factor Score Per Nursin RFS Level Per Nursing on Admit: 4+=Very High RODERICK BOO MD Jan 27, 2020 11:21
--- NOTE | 2020-01-27 11:27 | Progress Note - Hospitalist ---
Subjective HPI/CC On Admission Date Seen by Provider: Jan 27, 2020 CC: Chest pain with slightly elevated troponin HPI: This is a 69yoWM clinic Pt of [facility] who presented to the ER with chest pain with slightly elevated troponin but PMH of renal insufficiency, creatinine of 1.6, and WBC of 14, having a back sebaceous cyst that was attempted to be drained while in the ER but he was swabbed for COVID for a sporadic fever, subjectively the Pt reported so he is still remains in isolation. At this current time Pt is sleeping on his left side, denied any chest pain, we will have general surgery look at the sebaceous cyst and make a decision on that once the COVID test is back which likely will be presumptively negative. We will obtain cardiology consultation and close management in the meantime. Focused Exam Lactate Level 01/27/20 03:45: Lactic Acid Level 1.04 Objective Exam Vital Signs Vital Signs Date Time Temp Pulse Resp B/P (MAP) Pulse Ox O2 Delivery O2 Flow Rate FiO2 01/27/20 09:00 Room Air 01/27/20 08:00 37.1 84 20 185/80 (115) 98 Capillary Refill : Less Than 3 Seconds Results/Procedures Lab Laboratory Tests 01/27/20 03:45 Patient resulted labs reviewed. Assessment/Plan Assessment and Plan Assess & Plan/Chief Complaint Assessment: Chest pain Elevated troponin needs cath patient states he can't lie on his back right now CRI DM insulin dependent Obesity HTN HLP Sebaceous cyst on back but no abscess and appears cellulitis on USG Plan: Cardiology consultation appreciated COVID-19 swab negative Monitor closely May need general surgery consultation for cyst and USG reveals no abscess so placed on empiric treatment with Vanc and Zosyn Diagnosis/Problems Diagnosis/Problems (1) Acute coronary syndrome Status: Acute (2) Chest pain Status: Acute Qualifiers: Chest pain type: unspecified Qualified Codes: R07.9 - Chest pain, unspecified (3) Sebaceous cyst Status: Acute (4) Insulin dependent diabetes mellitus with complications Status: Chronic (5) BMI 40.0-44.9, adult Status: Chronic (6) Acute on chronic renal failure Status: Acute (7) HLD (hyperlipidemia) Status: Chronic (8) CAD (coronary artery disease) Status: Chronic (9) Elevated troponin I level Status: Acute Clinical Quality Measures DVT/VTE Risk/Contraindication: Risk Factor Score Per Nursin RFS Level Per Nursing on Admit: 4+=Very High SONY SHARP DO Jan 27, 2020 11:27
[2020-01-27] MEDS ORDERED: amLODIPine 5 MG (NORVASC) TAB PO ONE (11:30)
[2020-01-27 12:00] VITALS: BP 191/87
[2020-01-27] MEDS ORDERED: inSUlin ASPART (NovoLOG) 1 UNIT/0.01 ML (CHARGE PER UNIT) SC SCH (12:00)
[2020-01-27] MEDS ORDERED: OXYC1TAB12 PO (12:01)
[2020-01-27] MEDS ORDERED: AMOX-358 PO (12:01)
--- NOTE | 2020-01-27 12:02 | Discharge Summary ---
Discharge Summary Hospital Course Was the Problem List Reviewed?: Yes Problems/Dx: (1) Acute coronary syndrome Status: Acute (2) Chest pain Status: Acute Qualifiers: Qualified Codes: R07.9 - Chest pain, unspecified (3) Sebaceous cyst Status: Acute (4) Insulin dependent diabetes mellitus with complications Status: Chronic (5) BMI 40.0-44.9, adult Status: Chronic (6) Acute on chronic renal failure Status: Acute (7) HLD (hyperlipidemia) Status: Chronic (8) CAD (coronary artery disease) Status: Chronic (9) Elevated troponin I level Status: Acute Hospital Course Date of Admission: Jan 22, 2020 at 13:15 Admission Diagnosis : Family Physician/Provider: Duane Robison Date of Discharge: 01/27/20 Discharge Diagnosis: chest pain, elevated troponin but refuses cardiac cath, DM labile control, right upper back sebaceous cyst cellulitis Hospital Course: Patient had a lengthy hospital course after admitted for elevated troponin but right upper back cyst became so inflamed with cellulitis it prompted general surgery consultation but USG revealed no fluctuance so broad spectrum abx maintained and monitored labs closely. Fever did occur and elevated wbc did occur but he was insistent on DC home to take care of his who is disabled so Dr Manzano assessed him to have stable status and safe to DC on PO abx. Labs and Pending Lab Test: Laboratory Tests 01/26/20 16:49: Glucometer 77 01/26/20 20:21: Glucometer 138H 01/27/20 03:45: White Blood Count 18.2H, Red Blood Count 3.83L, Hemoglobin 10.8L, Hematocrit 32L , Mean Corpuscular Volume 83, Mean Corpuscular Hemoglobin 28, Mean Corpuscular Hemoglobin Concent 34, Red Cell Distribution Width 13.5, Platelet Count 264, Mean Platelet Volume 9.9, Neutrophils (%) (Auto) 86H, Lymphocytes (%) (Auto) 7L, Monocytes (%) (Auto) 7, Eosinophils (%) (Auto) 1, Basophils (%) (Auto) 0, Neutrophils # (Auto) 15.7H, Lymphocytes # (Auto) 1.2, Monocytes # (Auto) 1.2H, Eosinophils # (Auto) 0.2, Basophils # (Auto) 0.0, Sodium Level 130L, Potassium Level 3.5L, Chloride Level 102, Carbon Dioxide Level 21, Anion Gap 7, Blood Urea Nitrogen 15, Creatinine 1.17, Estimat Glomerular Filtration Rate > 60, BUN/Creatinine Ratio 13, Glucose Level 123H, Lactic Acid Level 1.04, Calcium Level 7.0L, Corrected Calcium 8.3L, Total Bilirubin 0.5, Aspartate Amino Transf (AST/SGOT) 42H, Alanine Aminotransferase (ALT/SGPT) 24, Alkaline Phosphatase 89, Total Protein 5.0L, Albumin 2.4L, Procalcitonin 0.87H 01/27/20 11:10: Glucometer 120H Microbiology 01/22/20 Blood Culture - Preliminary, Resulted Staph, Coag 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) See Comments 01/22/20 Urine Culture - Final, Complete 3 or more isolates Home Meds Active Augmentin 875-125 Tablet (Amoxicillin/Potassium Clav) 1 Each Tablet 1 Each PO BID Percocet 10-325 mg Tablet (Oxycodone HCl/Acetaminophen) 1 Each Tablet 1 Tab PO Q4H PRN Reported Humalog Kwikpen (Insulin Lispro) 100 Unit/1 Ml Insuln.pen 40 Unit SQ TID Trulicity (Dulaglutide) 1.5 Mg/0.5 Ml Pen.injctr 1.5 Mg SC WEEKLY Furosemide 20 Mg Tablet 20 Mg PO DAILY Levemir Flextouch (Insulin Detemir) 100 Unit/1 Ml Insuln.pen 50 Unit SQ BID Amlodipine Besylate 10 Mg Tablet 10 Mg PO DAILY Metoprolol Tartrate 100 Mg Tablet 100 Mg PO BID Atorvastatin Calcium 20 Mg Tablet 20 Mg PO DAILY Aspirin EC (Aspirin) 325 Mg Tablet.dr 325 Mg PO DAILY Gabapentin 800 Mg Tablet 800 Mg PO TID Assessment/Pt Instructions [facility] this week Discharge Planning: <30 minutes discharge planning Discharge Instructions Pneumonia Vaccine Order Indica: Yes Discharge Physical Examination Vital Signs Vital Signs Date Time Temp Pulse Resp B/P (MAP) Pulse Ox O2 Delivery O2 Flow Rate FiO2 01/27/20 09:00 Room Air 01/27/20 08:00 37.1 84 20 185/80 (115) 98 General Appearance: No Apparent Distress, WD/WN, Chronically ill, Obese Skin: Other (hardened right upper back c/w sebacious cyst but no erythema and no drainage and improved status) Allergies: Coded Allergies: No Known Drug Allergies (Unverified , 10/08/11) Discharge Summary Date of Admission Jan 22, 2020 at 13:15 Date of Discharge Discharge Date: Jan 27, 2020 Admission Diagnosis Assessment: Chest pain Elevated troponin CRI DM insulin dependent Obesity HTN HLP Sebaceous cyst on back Plan: Cardiology consultation COVID-19 swab pending Monitor closely May need general surgery consultation for cyst Discharge Diagnosis Assessment: Chest pain Elevated troponin needs cath patient states he can't lie on his back right now CRI DM insulin dependent Obesity HTN HLP Sebaceous cyst on back but no abscess and appears cellulitis on USG Plan: Cardiology consultation appreciated COVID-19 swab negative Monitor closely May need general surgery consultation for cyst and USG reveals no abscess so placed on empiric treatment with Vanc and Zosyn (1) Acute coronary syndrome Status: Acute (2) Chest pain Status: Acute Qualifiers: Qualified Codes: R07.9 - Chest pain, unspecified (3) Sebaceous cyst Status: Acute (4) Insulin dependent diabetes mellitus with complications Status: Chronic (5) BMI 40.0-44.9, adult Status: Chronic (6) Acute on chronic renal failure Status: Acute (7) HLD (hyperlipidemia) Status: Chronic (8) CAD (coronary artery disease) Status: Chronic (9) Elevated troponin I level Status: Acute Clinical Quality Measures DVT/VTE Risk/Contraindication: Risk Factor Score Per Nursin RFS Level Per Nursing on Admit: 4+=Very High SONY SHARP DO Jan 27, 2020 12:02
--- NOTE | 2020-01-27 12:30 | NUR ---
PT DISCHARGED TO HOME. PT TAKEN DOWN STAIRS IN W/C WITH PCT. PT GIVEN ALL PAPERWORK.
[2020-01-27] MEDS ORDERED: TROUGH ORDER-PHARMACY XX NR (14:00)
[2020-01-28] MEDS ORDERED: amLODIPine 5 MG (NORVASC) TAB PO SCH (09:00)
--- NOTE | 2020-01-29 12:26 | Physician Query Clarification ---
PQ-Conflicting Diagnosis Admission/Discharge Admission Date: Jan 22, 2020 at 13:15 Discharge Date: Jan 27, 2020 at 12:30 The medical record reflects the following clinical scenario: History/Risk Factors: Elevated troponin, sebaceous cyst w/cellulitis back, diabetes, obesity Clinical Findings: Troponin 0.44-0.062 Treatment: Lidocaine, Norvasc, pt refused heart cath d/t cyst on back and associated pain Question: Do you agree with the impression of the NSTEMI per Dr. Munguia Please document a response in Progress Note or Discharge Summary. 1. Yes 2. No 3. Other, with explanation of clinical findings 4. Clinically undetermined, no explanation for clinical findings. PHYSICIAN RESPONSE Do you agree w/Consulting Dx?: Yes Please remember a lack of response to the above will prompt a phone page by CDI/Coding staff. In responding to this query, please exercise your independent professional judgment. The purpose of this communication is to more accurately reflect the complexity of your patients condition. The fact that a question is asked does not imply that any particular answer is desired or expected. Thank you for your timely response to this clarification. Requestors name: Rani THIS PHYSICIAN QUERY FORM IS A PERMANENT PART OF THE MEDICAL RECORD RANI STEINER Jan 29, 2020 12:26 SONY SHARP DO Jan 29, 2020 19:58
== END 2020-01-27 12:30 | disposition home or self-care (01) | DRG 579 ==
LOC: EDUNIT# 08:29 → ER 08:32 → CSD 13:15 → 4TH 01-24 17:00
PROVIDERS: ADMIT Internal Medicine; ATTEND Internal Medicine
PROC: 0J970ZZ Drainage of Back Subcutaneous Tissue and Fascia, Open Approach (ICD-10-PCS; principal; 2020-01-22)
DX: L03.312 Cellulitis of back [any part except buttock and flank] (principal); I21.4 Non-ST elevation (NSTEMI) myocardial infarction; N17.9 Acute kidney failure, unspecified; Z68.41 Body mass index [BMI] 40.0-44.9, adult; L72.3 Sebaceous cyst; E11.40 Type 2 diabetes mellitus with diabetic neuropathy, unspecified; Z79.4 Long term (current) use of insulin; G47.30 Sleep apnea, unspecified; I12.9 Hypertensive chronic kidney disease with stage 1 through stage 4 chronic kidney disease, or unspecified chronic kidney disease; N18.9 Chronic kidney disease, unspecified; M19.91 Primary osteoarthritis, unspecified site; E78.5 Hyperlipidemia, unspecified; I25.10 Atherosclerotic heart disease of native coronary artery without angina pectoris; E66.9 Obesity, unspecified; Z20.828 Contact with and (suspected) exposure to other viral communicable diseases; Z82.49 Family history of ischemic heart disease and other diseases of the circulatory system
CPT/HCPCS: 36415; 71045; 76999; 80048; 80053; 80061; 80202; 81000; 82962; 83605; 83615; 83735; 84145; 84484; 85007; 85025; 85027; 85379; 85610; 85652; 85730; 86141; 87040; 87088; 87635; 93005; 96361; 96372; 96374

== ENCOUNTER → 2020-10-30 | Outpatient (CLI) | payer MEDICARE ==
[~2020-10-30] MED LIST changes: +AMLO-251 PO; -AMLO10TA7 PO; +AMOX-358 PO; +DULA1.5P2 SC; +INSU100I23 SQ; +LISI40TA9 PO
[2020-10-30] MEDS: CATHETER FLUSH 10 ML SYR IV PRN ×2 (09:30→10:30)
--- NOTE | 2020-10-30 12:00 | Diagnostic Imaging Report ---
INDICATION: Epigastric pain COMPARISON: None available. TECHNIQUE: Anterior scintigraphic imaging of the abdomen was performed after the intravenous administration of 5.34 mCi Tc-99m Choletec. FINDINGS: The upper abdomen was imaged for 60 minutes with the gamma camera. There is prompt homogeneous uptake of radiopharmaceutical by the liver. There is activity in the common duct and gallbladder by 10 minutes. Small bowel activity is seen by 30 minutes. After 60 minutes, the patient received 8 oz of ensure by mouth. After 60 minutes, the gallbladder ejection fraction was calculated to be 25%% which is abnormally low. IMPRESSION: 1. Patent common and cystic bile ducts. 2. Diminished gallbladder contraction can be seen with chronic cholecystitis or gallbladder dyskinesia. Dictated by: Dictated on workstation # [id number]
== END ==
LOC: CARD 09:04
PROVIDERS: ATTEND Surgery
DX: K80.11 Calculus of gallbladder with chronic cholecystitis with obstruction (principal)
CPT/HCPCS: 78227; A9537

== ENCOUNTER → 2020-11-28 | Outpatient (CLI) | payer MEDICARE | LOC: RAD 10:42 | PROVIDERS: ATTEND Emergency Medicine | DX: M54.15 Radiculopathy, thoracolumbar region (principal); Z53.8 Procedure and treatment not carried out for other reasons ==

== ENCOUNTER → 2021-02-27 | Outpatient (CLI) | payer MEDICARE | LOC: WOUNDCARE 13:44 | PROVIDERS: ATTEND Surgery | DX: E11.621 Type 2 diabetes mellitus with foot ulcer (principal); E11.42 Type 2 diabetes mellitus with diabetic polyneuropathy; I70.235 Atherosclerosis of native arteries of right leg with ulceration of other part of foot; L97.512 Non-pressure chronic ulcer of other part of right foot with fat layer exposed; I89.0 Lymphedema, not elsewhere classified; E11.65 Type 2 diabetes mellitus with hyperglycemia | CPT/HCPCS: 11042; A6197; G0463 ==

== ENCOUNTER → 2021-02-27 | Outpatient (CLI) | payer MEDICARE ==
[2021-02-27 15:59] LABS: BASOPHILS # (AUTO) 0.1 10^3/uL (0.0-0.1); BASOPHILS % (AUTO) 1 % (0-10); EOSINOPHILS # (AUTO) 0.2 10^3/uL (0.0-0.3); EOSINOPHILS % (AUTO) 3 % (0-10); HEMATOCRIT 43 % (40-54); HEMOGLOBIN 13.9 g/dL (13.3-17.7); LYMPHOCYTES # (AUTO) 2.4 10^3/uL (1.0-4.0); LYMPHOCYTES % (AUTO) 33 % (12-44); MEAN CORPUSCULAR HEMOGLOBIN 27 pg (25-34); MEAN CORPUSCULAR HGB CONC 33 g/dL (32-36); MEAN CORPUSCULAR VOLUME 84 fL (80-99); MEAN PLATELET VOLUME 10.4 fL (9.0-12.2); MONOCYTES # (AUTO) 0.4 10^3/uL (0.0-1.0); MONOCYTES % (AUTO) 6 % (0-12); NEUTROPHILS # (AUTO) 4.2 10^3/uL (1.8-7.8); NEUTROPHILS % (AUTO) 58 % (42-75); PLATELET COUNT 196 10^3/uL (130-400); WHITE BLOOD COUNT 7.2 10^3/uL (4.3-11.0)
[2021-02-27 16:28] LABS: BILIRUBIN,TOTAL 0.7 MG/DL (0.1-1.0); CALCIUM 8.8 MG/DL (8.5-10.1); CREATININE SERUM 1.83 MG/DL (0.60-1.30); POTASSIUM 4.5 MMOL/L (3.6-5.0)
== END ==
LOC: LAB 15:28
PROVIDERS: ATTEND Surgery
DX: E11.621 Type 2 diabetes mellitus with foot ulcer (principal)
CPT/HCPCS: 36415; 80053; 83036; 85025

== ENCOUNTER → 2021-03-06 | Outpatient (CLI) | payer MEDICARE | LOC: WOUNDCARE 12:26 | PROVIDERS: ATTEND Surgery | DX: E11.621 Type 2 diabetes mellitus with foot ulcer (principal); E11.42 Type 2 diabetes mellitus with diabetic polyneuropathy; L97.512 Non-pressure chronic ulcer of other part of right foot with fat layer exposed; I70.235 Atherosclerosis of native arteries of right leg with ulceration of other part of foot; I89.0 Lymphedema, not elsewhere classified; E11.65 Type 2 diabetes mellitus with hyperglycemia; E11.52 Type 2 diabetes mellitus with diabetic peripheral angiopathy with gangrene | CPT/HCPCS: 11042; G0463 ==

== ENCOUNTER → 2021-03-14 | Outpatient (CLI) | payer MEDICARE | LOC: WOUNDCARE 12:09 | PROVIDERS: ATTEND Orthopaedic Surgery Hand Surgery | DX: E11.621 Type 2 diabetes mellitus with foot ulcer (principal); E11.42 Type 2 diabetes mellitus with diabetic polyneuropathy; L97.512 Non-pressure chronic ulcer of other part of right foot with fat layer exposed; I70.235 Atherosclerosis of native arteries of right leg with ulceration of other part of foot; I89.0 Lymphedema, not elsewhere classified; E11.65 Type 2 diabetes mellitus with hyperglycemia; L84 Corns and callosities | CPT/HCPCS: 99212 ==

== ENCOUNTER 2021-04-14 08:57 | Observation (INO) | payer MEDICARE ==
[~2021-04-14] VITALS: Ht 170.2 cm; Wt 115.1 kg
--- NOTE | 2021-04-14 09:15 | ED Dyspnea ---
General Stated Complaint: SOA Source of Information: Patient, Family Exam Limitations: No Limitations History of Present Illness Date Seen by Provider: Apr 14, 2021 Time Seen by Provider: 09:02 Initial Comments Patient is a 70-year-old male who presents to the emergency department with worsening shortness of breath over the last 3 days. Patient relates that he had a mechanical trip and fall on Wednesday, 3 days ago landing on his left side over a 5 gallon bucket. States that he became a little short of breath that evening and then on Wednesday he seemed to improve but over the last 36 hours has had worsening again. Patient states that his uses oxygen at home and he attempted to use that to alleviate his symptoms without any relief. Patient complains of some low back discomfort and left flank pain. He did take an oxycodone last night but it did not really help. He states he has had a nonproductive cough. No fevers or chills. No chest pain, nausea or vomiting. No other GI or symptoms. Patient relates that he is on a blood thinner. He does not have a cardiac history as far as stents or bypass surgery. He does follow with Dr. Munguia. He has a history of COPD and has a CPAP at home. He is Covid vaccinated in September of this year. Cannot remember which brand of vaccine he got. Is not aware of any Covid positive contacts recently. Is quite hypertensive on presentation, did not take any of his morning meds this morning. All other review of systems reviewed and negative except as stated. Timing/Duration: Other (2 to 3 days) Severity: Moderate Prior Episodes/Possible Cause: Occasional Episodes Associated Symptoms: Cough Allergies and Home Medications Allergies Coded Allergies: No Known Drug Allergies (Unverified , 10/08/11) Patient Home Medication List Home Medication List Reviewed: Yes Amlodipine Besylate (Amlodipine Besylate) 10 Mg Tablet, 10 MG PO DAILY, (Reported) Entered as Reported by: NYASIA QUIÑONES on 09/26/19 3208 Last Action: Reviewed Aspirin (Aspirin EC) 81 Mg Tablet., 81 MG PO DAILY, (Reported) Entered as Reported by: NYASIA QUIÑONES on 04/15/21 1046 Last Action: Reviewed Atorvastatin Calcium (Atorvastatin Calcium) 80 Mg Tablet, 80 MG PO DAILY, (Reported) Entered as Reported by: NYASIA QUIÑONES on 04/15/21 1046 Last Action: Reviewed Carvedilol (Carvedilol) 12.5 Mg Tablet, 12.5 MG PO BID, (Reported) Entered as Reported by: NYASIA QUIÑONES on 04/15/21 104 Last Action: Reviewed Docusate Sodium (Docusate Sodium) 100 Mg Capsule, 300 MG PO HS, (Reported) Entered as Reported by: NYASIA QUIÑONES on 04/15/21 104 Last Action: Reviewed Furosemide (Furosemide) 20 Mg Tablet, 20 MG PO DAILY, (Reported) Entered as Reported by: NYASIA QUIÑONES on 01/23/20 1530 Last Action: Reviewed Gabapentin (Neurontin) 300 Mg Capsule, 300 MG PO TID, (Reported) Entered as Reported by: NYASIA QUIÑONES on 04/15/21 110 Last Action: Reviewed Insulin Detemir (Levemir Flextouch) 100 Unit/1 Ml Insuln.pen, 52 UNIT SQ HS, (Reported) Entered as Reported by: NYASIA QUIÑONES on 09/26/19 1526 Last Action: Reviewed Insulin Detemir (Levemir Flextouch) 100 Unit/1 Ml Insuln.pen, 32 UNIT SQ DAILY, (Reported) Entered as Reported by: NYASIA QUIÑONES on 04/15/21 104 Last Action: Reviewed Insulin Lispro (Humalog Kwikpen) 200 Unit/1 Ml Insuln.pen, 18 UNITS SC BIDAC, (Reported) Entered as Reported by: NYASIA QUIÑONES on 04/15/21 104 Last Action: Reviewed Oxycodone HCl/Acetaminophen (Oxycodone-Acetaminophen 5-325) 1 Each Tablet, 1-2 EA PO Q4H PRN for PAIN-MODERATE (5-7), (Reported) Entered as Reported by: NYASIA QUIÑONES on 04/15/21 104 Last Action: Reviewed Discontinued Medications Amoxicillin/Potassium Clav (Augmentin 875-125 Tablet) 1 Each Tablet, 1 EACH PO BID Discontinued Reason: No Longer Taking Prescribed by: SONY SHARP on 01/27/20 1201 Last Action: Discontinued Aspirin (Aspirin EC) 325 Mg Tablet.dr, 325 MG PO DAILY, (Reported) Discontinued Reason: No Longer Taking Entered as Reported by: DARSHAN ALMARAZ on 04/20/18 1631 Last Action: Discontinued Atorvastatin Calcium (Atorvastatin Calcium) 20 Mg Tablet, 20 MG PO DAILY, (Reported) Discontinued Reason: No Longer Taking Entered as Reported by: DARSHAN ALMARAZ on 04/20/18 1631 Last Action: Discontinued Dulaglutide (Trulicity) 1.5 Mg/0.5 Ml Pen.injctr, 1.5 MG SC WEEKLY, (Reported) Discontinued Reason: No Longer Taking Entered as Reported by: NYASAI QUIÑONES on 01/23/20 1530 Last Action: Discontinued Gabapentin (Gabapentin) 800 Mg Tablet, 800 MG PO TID, (Reported) Discontinued Reason: No Longer Taking Entered as Reported by: HORACE ABARCA on 06/06/17 1157 Last Action: Discontinued Insulin Lispro (Humalog Kwikpen) 100 Unit/1 Ml Insuln.pen, 40 UNIT SQ TID, (Reported) Discontinued Reason: No Longer Taking Entered as Reported by: NYASIA QUIÑONES on 01/23/20 1548 Last Action: Discontinued Metoprolol Tartrate (Metoprolol Tartrate) 100 Mg Tablet, 100 MG PO BID, (Reported) Discontinued Reason: No Longer Taking Entered as Reported by: DARSHAN ALMARAZ on 04/20/18 1649 Last Action: Discontinued Oxycodone HCl/Acetaminophen (Percocet 10-325 mg Tablet) 1 Each Tablet, 1 TAB PO Q4H PRN for PAIN-MODERATE Discontinued Reason: No Longer Taking Prescribed by: SONY SHARP on 01/27/20 1202 Last Action: Discontinued Review of Systems Review of Systems Constitutional: see HPI EENTM: no symptoms reported Respiratory: cough, dyspnea on exertion, short of breath Cardiovascular: no symptoms reported Gastrointestinal: other (Left flank discomfort) Genitourinary: no symptoms reported Musculoskeletal: back pain (Low back discomfort) Skin: no symptoms reported Psychiatric/Neurological: No Symptoms Reported All Other Systems Reviewed Negative Unless Noted: Yes Past Tbjndlx-Ccfeiw-Gjnwho Hx Immunizations Up To Date Tetanus Booster (TDap): Unknown Seasonal Allergies Seasonal Allergies: No Past Medical History Surgeries: Yes (BACK SURGERY 2017 AT [facility]. KNEE SCOPE 20 YRS AGO) Cardiac, Neurological, Orthopedic Respiratory: Yes Pneumonia, Sleep Apnea Currently Using CPAP: Yes (DOESNT USE IT) Cardiac: Yes Hypertension Neurological: Yes Neuropathy Reproductive Disorders: No Genitourinary: Yes (LEFT KIDNEY CYST) Renal Failure Gastrointestinal: No Musculoskeletal: Yes Arthritis Endocrine: Yes Diabetes, Insulin dep HEENT: Yes (WEARS GLASSES) Cataract Cancer: No Psychosocial: No Integumentary: No Blood Disorders: No Family Medical History Cardiovascular disease 19 FATHER Completed stroke G8 BROTHER Diabetes mellitus G8 BROTHER Kidney disease G8 BROTHER Neoplasm 19 MOTHER Cancer, CAD Under 55 Years Old, Diabetes Physical Exam Vital Signs Vital Signs - First Documented 04/14/21 09:00 Temp 36.2 Pulse 74 Resp 16 B/P (MAP) 203/112 (142) Pulse Ox 94 O2 Delivery Room Air Capillary Refill : Height, Weight, BMI Height: 5'7.00" Weight: 284lbs. 2.0oz. 128.569193od; 41.17 BMI Method:Stated General Appearance: No Apparent Distress, Mild Distress (Dyspneic) HEENT: PERRL/EOMI Neck: Normal Inspection Respiratory: Lungs Clear, Normal Breath Sounds, No Accessory Muscle Use, No Respiratory Distress, Other (Slightly labored breathing with mild increased work of breathing possibly a few crackles heard in the bases bilaterally; no wheezing) Cardiovascular: Regular Rate, Rhythm, Normal Peripheral Pulses, Other (Distal pulses intact) Gastrointestinal: Normal Bowel Sounds, Non Tender, Soft Extremity: Normal Inspection, Normal Range of Motion, Non Tender, No Pedal Edema Neurologic/Psychiatric: Alert, Oriented x3, No Motor/Sensory Deficits, Normal Mood/Affect Skin: Normal Color, Warm/Dry, Other (Very minor bruising noted to the left lower quadrant and left flank) Progress/Results/Core Measures Results/Orders Lab Results Laboratory Tests Test 04/14/21 09:14 Range/Units White Blood Count 12.2 H 4.3-11.0 10^3/uL Red Blood Count 4.55 4.30-5.52 10^6/uL Hemoglobin 12.4 L 13.3-17.7 g/dL Hematocrit 39 L 40-54 % Mean Corpuscular Volume 86 80-99 fL Mean Corpuscular Hemoglobin 27 25-34 pg Mean Corpuscular Hemoglobin Concent 32 32-36 g/dL Red Cell Distribution Width 13.7 10.0-14.5 % Platelet Count 224 130-400 10^3/uL Mean Platelet Volume 10.6 9.0-12.2 fL Immature Granulocyte % (Auto) 1 % Neutrophils (%) (Auto) 73 42-75 % Lymphocytes (%) (Auto) 14 12-44 % Monocytes (%) (Auto) 10 0-12 % Eosinophils (%) (Auto) 1 0-10 % Basophils (%) (Auto) 1 0-10 % Neutrophils # (Auto) 9.0 H 1.8-7.8 10^3/uL Lymphocytes # (Auto) 1.7 1.0-4.0 10^3/uL Monocytes # (Auto) 1.3 H 0.0-1.0 10^3/uL Eosinophils # (Auto) 0.1 0.0-0.3 10^3/uL Basophils # (Auto) 0.1 0.0-0.1 10^3/uL Immature Granulocyte # (Auto) 0.1 0.0-0.1 10^3/uL Sodium Level 134 L 135-145 MMOL/L Potassium Level 4.4 3.6-5.0 MMOL/L Chloride Level 103 98-107 MMOL/L Carbon Dioxide Level 23 21-32 MMOL/L Anion Gap 8 5-14 MMOL/L Blood Urea Nitrogen 24 H 7-18 MG/DL Creatinine 1.31 H 0.60-1.30 MG/DL Estimat Glomerular Filtration Rate 54 BUN/Creatinine Ratio 18 Glucose Level 171 H 70-105 MG/DL Calcium Level 8.6 8.5-10.1 MG/DL Total Creatine Kinase 245 H 30-200 U/L Troponin I 0.052 H <0.028 NG/ML B-Type Natriuretic Peptide 501.8 H <100.0 PG/ML SARS-CoV-2 RNA (RT-PCR) Not Detected Not Detecte My Orders Orders - LANI CARO MD Ed Iv/Invasive Line Start (04/14/21 09:10) Cbc With Automated Diff (04/14/21 09:10) Basic Metabolic Panel (04/14/21 09:10) Chest 1 View, Ap/Pa Only (04/14/21 09:10) Ekg Tracing (04/14/21 09:10) Creatine Kinase (04/14/21 09:10) Troponin I (04/14/21 09:10) BNP (04/14/21 09:10) Covid 19 Inhouse Test (04/14/21 09:10) Isolation Central Supply Req (04/14/21 09:10) Aspirin Chewable Tablet (Baby Aspirin Ch (04/14/21 09:30) Enoxaparin Injection (Lovenox Injection) (04/14/21 11:15) Potassium Chloride (Tablet) (Klor Con Ta (04/14/21 11:15) Furosemide Injection (Lasix Injection) (04/14/21 11:15) Metoprolol Succinate (Xl) Tab (Toprol Xl (04/14/21 11:15) Amlodipine Tablet (Norvasc Tablet) (04/14/21 11:15) Metoprolol Succinate (Xl) Tab (Toprol Xl (04/14/21 11:19) Medications Given in ED Vital Signs/I&O 04/14/21 04/14/21 09:00 09:00 Temp 36.2 Pulse 74 Resp 16 B/P (MAP) 203/112 (142) Pulse Ox 94 O2 Delivery Room Air Room Air Initial ECG Impression Date: Apr 14, 2021 Initial ECG Impression Time: 09:25 Initial ECG Rate: 70 Initial ECG Rhythm: Normal Sinus Initial ECG Intervals IN 273 QRS 83 QTc 426 Initial ECG Comparisson: Changed Comment ST segment depression about 1mm V6 and slightly depressed V5 first degree AVB PVC Diagnostic Imaging Diagonstic Imaging: Xray Plain Films/CT/US/NM/MRI: chest Comments NAME: KRISTAL MEJIA [facility] REC#: [id number] PT STATUS: REG ER : 1950 PHYSICIAN: LANI CARO MD ADMIT DATE: 04/14/21/ER Draft Date of Exam:04/14/21 CHEST 1 VIEW, AP/PA ONLY INDICATION: shortness of breath. TECHNIQUE: Single view chest 10:12 AM. CORRELATION STUDY: 01/22/2020 FINDINGS: Heart size remains enlarged. There appears to be increasing severity of pulmonary vascular congestion and edema. The lungs are clear with no consolidating infiltrate. There is no significant effusion or pneumothorax. IMPRESSION: 1. Cardiac enlargement with pulmonary vascular congestion and edema overall appears changed from prior. Dictated on workstation # [id number] Dict: 04/14/21 1044 Trans: 04/14/21 1048 KATALINA [id number] Interpreted by: PAULA AYERS DO Electronically signed by: Departure Communication (Admissions) Time/Spoke to Admitting Phy: 10:[address] kwan Time/Spoke to Consulting Phy: 11:[address] Harvey would like Lasix 40, K 10, toprol xl 100; amlodipine 10 and wt based lovenox now and Q12. Impression Primary Impression: Hypertensive urgency Additional Impressions: Dyspnea Qualified Codes: R06.02 - Shortness of breath Elevated troponin Disposition: ADMITTED INPATIENT Condition: Stable Admissions Decision to Admit Reason: Admit from ER (General) Decision to Admit/Date: Apr 14, 2021 Time/Decision to Admit Time: 11:08 Departure-Patient Inst. Referrals: LINSEY CROWLEY DO (PCP/Family) Primary Care Physician LANI CARO MD Apr 14, 2021 09:15
[2021-04-14 09:22] LABS: BASOPHILS # (AUTO) 0.1 10^3/uL (0.0-0.1); BASOPHILS % (AUTO) 1 % (0-10); EOSINOPHILS # (AUTO) 0.1 10^3/uL (0.0-0.3); EOSINOPHILS % (AUTO) 1 % (0-10); HEMATOCRIT 39 % (40-54); HEMOGLOBIN 12.4 g/dL (13.3-17.7); LYMPHOCYTES # (AUTO) 1.7 10^3/uL (1.0-4.0); LYMPHOCYTES % (AUTO) 14 % (12-44); MEAN CORPUSCULAR HEMOGLOBIN 27 pg (25-34); MEAN CORPUSCULAR HGB CONC 32 g/dL (32-36); MEAN CORPUSCULAR VOLUME 86 fL (80-99); MEAN PLATELET VOLUME 10.6 fL (9.0-12.2); MONOCYTES # (AUTO) 1.3 10^3/uL (0.0-1.0); MONOCYTES % (AUTO) 10 % (0-12); NEUTROPHILS % (AUTO) 73 % (42-75); PLATELET COUNT 224 10^3/uL (130-400); WHITE BLOOD COUNT 12.2 10^3/uL (4.3-11.0)
[2021-04-14] MEDS ORDERED: ASPIRIN 81 MG CHEW (CHILDREN'S ASA) PO ONE (09:30)
[2021-04-14 09:36] LABS: POTASSIUM 4.4 MMOL/L (3.6-5.0)
[2021-04-14 09:37] LABS: CALCIUM 8.6 MG/DL (8.5-10.1)
[2021-04-14 09:41] LABS: CREATININE SERUM 1.31 MG/DL (0.60-1.30)
--- NOTE | 2021-04-14 10:48 | Diagnostic Imaging Report ---
INDICATION: shortness of breath. TECHNIQUE: Single view chest 10:12 AM. CORRELATION STUDY: 01/22/2020 FINDINGS: Heart size remains enlarged. There appears to be increasing severity of pulmonary vascular congestion and edema. The lungs are clear with no consolidating infiltrate. There is no significant effusion or pneumothorax. IMPRESSION: 1. Cardiac enlargement with pulmonary vascular congestion and edema overall appears changed from prior. Dictated by: Dictated on workstation # [id number]
[2021-04-14] MEDS ORDERED: KCL 10 MEQ TAB (MICRO K) PO ONE (11:15)
[2021-04-14] MEDS ORDERED: ENOXAPARIN 60 MG/0.6 ML (LOVENOX) SYR SC ONE (11:15)
[2021-04-14] MEDS ORDERED: FUROSEMIDE 40 MG/4 ML INJ (LASIX) IVP ONE (11:15)
[2021-04-14] MEDS ORDERED: amLODIPine 10 MG (NORVASC) TAB PO ONE (11:15)
[2021-04-14] MEDS ORDERED: meTOprolol SUCCINATE 100 MG (TOPROL XL) TAB PO ONE (11:15)
[2021-04-14] MEDS ORDERED: meTOproloL SUCCINATE 50 MG (TOPROL XL) TAB PO ONE (11:19)
--- NOTE | 2021-04-14 12:19 | History & Physical-Hospitalist ---
CHRISTOPHEKARENGEORGE A MED STUDENT 04/14/21 1219: History of Present Illness HPI/Chief Complaint 70 yo male who presented to ED with SOA since wednesday after a fall. Pt has hx of diastolic heart failure, HTN, T2DM, hyperlipidemia and peripheral neuropathy. Pt states he fell on Wednesday and hit his side and back on a bucket. His SOA is not d/t pain in his ribs, but d/t feeling he cant get enough oxygen. Pt reports SOA two years prior that resulted in a 10 day stay at . He was supposed to have a heart catheterization, but this was not done. Pt reports he sees Dr. Crowley as PCP, last appt was Wednesday. Pt also sees Dr. Munguia, last appt was over 6 months ago. Pt reports his last HgbA1c was 9.5% and was down from previous value. Pt is currently in no pain, but if he twists his pain is a 4/10. Pt confirms blurry vision, headache and sweating. Denies chest pain or palpitations. Source: patient Exam Limitations: no limitations Date Seen 04/14/21 Attending Physician Jodi Jon MD PCP Kemar Crowley DO Referring Physician Date of Admission Apr 14, 2021 at 11:24 Home Medications & Allergies Home Medications Reviewed patient Home Medication Reconciliation performed by pharmacy medication reconciliations senior radiation protection technician and/or nursing. Patients Allergies have been reviewed. Allergies Allergies Coded Allergies No Known Drug Allergies (Unverified10/08/11) Past Kkrosfq-Rgggre-Axmnoq Hx Patient Social History Tobacco Use?: No Smoking Status: Former Smoker Use of E-Cig and/or Vaping dev: No Substance use?: No Alcohol Use?: No Pt feels they are or have been: No Immunizations Up To Date First/Initial COVID19 Vaccinat: SEPTEMBER 29 Second COVID19 Vaccination Addison: OCTOBER 27 Tetanus Booster (TDap): Unknown Seasonal Allergies Seasonal Allergies: No Current Status Advance Directives: No Primary Language: [place] Preferred Spoken Language: [place] Past Medical History Surgeries: Cardiac, Neurological, Orthopedic Pneumonia, Sleep Apnea Currently Using CPAP: Yes (DOESNT USE IT) Hypertension Neuropathy Renal Failure Arthritis Diabetes, Insulin dep Cataract Blood Disorders: No PMHx: IDDMII: Uncontrolled HTN HLD Chronic pain CAD Obesity COPD SurgHx: Back surgery Knee scope Family Medical History Cardiovascular disease 19 FATHER Completed stroke G8 BROTHER Diabetes mellitus G8 BROTHER Kidney disease G8 BROTHER Neoplasm 19 MOTHER Cancer, CAD Under 55 Years Old, Diabetes Review of Systems Constitutional: no symptoms reported EENTM: blurred vision Respiratory: orthopnea, short of breath Cardiovascular: no symptoms reported Gastrointestinal: no symptoms reported Genitourinary: no symptoms reported Musculoskeletal: joint pain Skin: no symptoms reported Psychiatric/Neurological: Headache, Numbness, Tingling Physical Exam Physical Exam Vital Signs Vital Signs - First Documented 04/14/21 09:00 Temp 36.2 Pulse 74 Resp 16 B/P (MAP) 203/112 (142) Pulse Ox 94 O2 Delivery Room Air Capillary Refill : Less Than 3 Seconds Height, Weight, BMI Height: 5'7.00" Weight: 284lbs. 2.0oz. 128.768237ea; 41.00 BMI Method:Stated General Appearance: No Apparent Distress, Obese HEENT: PERRL/EOMI Neck: Full Range of Motion, Normal Inspection Respiratory: Chest Non Tender, Lungs Clear, Normal Breath Sounds Cardiovascular: Regular Rate, Rhythm, Normal Peripheral Pulses Gastrointestinal: Normal Bowel Sounds, No Pulsatile Mass, Non Tender, Soft Extremity: Normal Capillary Refill, Normal Inspection, Non Tender, Pedal Edema Neurologic/Psychiatric: Alert, Oriented x3, No Motor/Sensory Deficits, Normal Mood/Affect, front desk II-XII Norm as Tested Skin: Normal Color, Warm/Dry Results Results/Procedures Labs Laboratory Tests 04/14/21 09:14 Patient resulted labs reviewed. Assessment/Plan Admission Diagnosis Acute on chronic diastolic heart failure with HTN emergency and NSTEMI Reason for Inpatient Admission: Acute on chronic diastolic heart failure with HTN emergency and NSTEMI Assessment and Plan Acute on Chronic diastolic heart failure HTN emergency NSTEMI T2DM Hyperlipidemia Peripheral Neuropathy Acute on Chronic diastolic heart failure -HTN emergency -Lasix IV given at 0900 -Amlodipine and Metoprolol started -Will monitor daily weights, Blood pressure and urine output -Repeat labs tomorrow moring. -Sodium restricted diet -NSTEMI -Troponins increased, will continue to monitor. T2DM -SSI -Will order HgbA1c to be done. Hyperlipidemia -Pt on statin at home. Peripheral Neuropathy -Pt currently on oxycodone and gabapentin. Will restart these medications. DVT ppx with SCDs Discussed life sustaining measures with pt and he would like to be full code status. His daughter will make medical decisions for him if he is unable. Copy Copies To 1: KEMAR CROWLEY KATELYN M MD 04/14/21 1358: History of Present Illness Time Seen by a Provider: 13:48 Past Mrwxcwc-Cvbrov-Uqwwiz Hx Patient Social History Employed/Student: retired Smoking Status: Unknown if Ever Smoked Substance use?: No Family Medical History Reviewed Nursing Family Hx Cardiovascular disease 19 FATHER Completed stroke G8 BROTHER Diabetes mellitus G8 BROTHER Kidney disease G8 BROTHER Neoplasm 19 MOTHER Review of Systems All Other Systems Reviewed Negative Unless Noted: Yes (Negative excepted noted.) Physical Exam Physical Exam General Appearance: No Apparent Distress, Obese HEENT: PERRL/EOMI, Moist Mucous Membranes; No Scleral Icterus (L), No Scleral Icterus (R) Neck: Normal Inspection, Supple Respiratory: No Respiratory Distress, Decreased Breath Sounds (in bases) Cardiovascular: Regular Rate, Rhythm, No Murmur, Normal Peripheral Pulses Gastrointestinal: Normal Bowel Sounds, No Pulsatile Mass, Non Tender, Soft Extremity: Normal Capillary Refill, Normal Inspection, Non Tender, Pedal Edema Neurologic/Psychiatric: Alert, Oriented x3, Normal Mood/Affect; No Aphasia, No Facial Droop Skin: Normal Color, Warm/Dry Results Results/Procedures Imaging: Reviewed Imaging Report Imaging [facility], [place] NAME: KRISTAL MEJIA [facility] REC#: [id number] PT STATUS: ADM [place] : 1950 PHYSICIAN: LANI CARO MD ADMIT DATE: 04/14/21/[facility] Signed Date of Exam:04/14/21 CHEST 1 VIEW, AP/PA ONLY INDICATION: shortness of breath. TECHNIQUE: Single view chest 10:12 AM. CORRELATION STUDY: 01/22/2020 FINDINGS: Heart size remains enlarged. There appears to be increasing severity of pulmonary vascular congestion and edema. The lungs are clear with no consolidating infiltrate. There is no significant effusion or pneumothorax. IMPRESSION: 1. Cardiac enlargement with pulmonary vascular congestion and edema overall appears changed from prior. Dictated by: Dictated on workstation # [id number] Dict: 04/14/21 1044 Trans: 04/14/21 1125 [facility] [id number] Interpreted by: PAULA AYERS DO Electronically signed by: PAULA AYERS DO 04/14/21 1125 Assessment/Plan Admission Diagnosis Admission Status: Inpatient Order (span 2 midnights) Reason for Inpatient Admission: see below Assessment and Plan Patient presented due to shortness of breath and found to be in acutely d ecompensated heart failure likely duet o HTN emergency. He suffered a fall last week and thought his shortness of breath was due to that. It continued to worsen. He reports compliance with all of his home meds and denies any changes in diet. He does not check his BP at home. BP while I was at bedside was 231/116. BP cuff replaced and recheck and down down to 160/70. He has not taken any of his normal medications today. He had already been given metoprolol and amlodipine due to systolic BP of >200 on arrival to the ER. He has also been given lasix and has already responded to that with multiple voids. He is laying flat in bed and denies dyspnea with this but still is dyspneic on exertion. We discussed plan to admit and get BP under better control and further diuresis with cardiology consult. He is agreeable to plan. He did not take his insulin this morning. He reports his a1c is normally around 9. We also discussed his CODE STATUS. He states he would not want resuscitative measures if needed but knows his kids would not like that. We discussed the need to follow his wishes but he would like to remain a full code despite "being ready to go home" until he can talk to his kids. He would like his daughter to make decisions for him of his 3 kids if he were unable to speak. He became quite tearful during this conversation. Diagnosis/Problems Diagnosis/Problems (1) Hypertensive emergency Status: Acute (2) CHF (congestive heart failure) Qualifiers: Heart failure type: diastolic Heart failure chronicity: acute on chronic Qualified Codes: I50.33 - Acute on chronic diastolic (congestive) heart failure (3) NSTEMI (non-ST elevated myocardial infarction) Status: Acute (4) Insulin dependent diabetes mellitus with complications Status: Chronic (5) BMI 40.0-44.9, adult Status: Chronic (6) HLD (hyperlipidemia) Status: Chronic (7) CAD (coronary artery disease) Status: Chronic (8) DVT prophylaxis Status: Acute (9) Renal insufficiency Status: Acute Copy Copies To 1: KEMAR CROWLEY DO Supervisory-Addendum Brief Verification & Attestation Participated in pt care: history, MDM, physical Personally performed: exam, history, MDM, supervision of care Care discussed with: Medical Student Procedures: n/a Results interpretation: Verified all documentation Verification and Attestation of Medical Student E/M Service A medical student performed and documented this service in my presence. I reviewed and verified all information documented by the medical student and made modifications to such information, when appropriate. I personally performed the physical exam and medical decision making. Jodi Jon, Apr 14, 2021,13:59 GEORGE BURNS MED STUDENT Apr 14, 2021 12:19 JODI JON MD Apr 14, 2021 13:58
[2021-04-14] MEDS: CATHETER FLUSH 10 ML SYR IV SCH ×2 (13:24→23:34)
[2021-04-14] MEDS ORDERED: CATHETER FLUSH 10 ML SYR IV PRN (14:00)
[2021-04-14] MEDS ORDERED: oxyCODONE/APAP 5/325MG (PERCOCET 5) TABLET PO PRN (14:30)
--- NOTE | 2021-04-14 14:55 | Consultation-Cardiology ---
HPI-Cardiology Cardiology Consultation: Date of Consultation 04/14/21 Time Seen by a Provider: 14:00 Date of Admission Attending Physician Navya Jon MD Admitting Physician Kemar Howell DO Consulting Physician CLARE DAVENPORT MD, MA, FACP, FACC, FSCAI, CCDS Physician requesting consult: Dr Jon Primary syrup mixer: Dr Munguia HPI: Chief Complaint: Shortness of breath 70 yo man with increasing shortness of breath for several days. No cp or palp or syncope or swelling. No n/v/d. No fever or chills. Shortness of breath had progressed significantly over the past 48-72 hours and that made him come to the hospital this morning Review of Systems-Cardiology Review of Systems Constitutional: malaise, tiredness; No weight loss, No weight gain Eyes: No vision change Ears/Nose/Throat: No ear discharge, No nasal drainage, No recent hearing loss Respiratory: As described under HPI Cardiovascular: As described under HPI Gastrointestinal: As described under HPI Genitourinary: No dysuria, No hematuria, No urine frequency changes Musculoskeletal: back pain (chronic) Skin: No rash, No ulcerations Psychiatric/Neurological: No seizure, No focal weakness, No syncope All Other Systems Reviewed Negative Unless Noted: Yes OTW-Vkxouo-Tulvce Hx Patient Social History Smoking Status: Former Smoker 2nd Hand Smoke Exposure: No Have you traveled recently?: No Alcohol Use?: No Pt feels they are or have been: No Tobacco type used: Cigarettes Immunizations Up To Date Tetanus Booster (TDap): Unknown Past Medical History PMH As described under Assessment. Family Medical History Family History: Cardiovascular disease 19 FATHER Completed stroke G8 BROTHER Diabetes mellitus G8 BROTHER Kidney disease G8 BROTHER Neoplasm 19 MOTHER Allergies and Home Medications Allergies Coded Allergies: No Known Drug Allergies (Unverified , 10/08/11) Patient Home Medication List Home Medication List Reviewed: Yes Amlodipine Besylate (Amlodipine Besylate) 10 Mg Tablet, 10 MG PO DAILY, (Reported) Entered as Reported by: NYASIA QUIÑONES on 09/26/19 1438 Amoxicillin/Potassium Clav (Augmentin 875-125 Tablet) 1 Each Tablet, 1 EACH PO BID Prescribed by: SONY SHARP on 01/27/20 1201 Aspirin (Aspirin EC) 325 Mg Tablet., 325 MG PO DAILY, (Reported) Entered as Reported by: DARSHAN ALMARAZ on 04/20/18 1631 Atorvastatin Calcium (Atorvastatin Calcium) 20 Mg Tablet, 20 MG PO DAILY, (R eported) Entered as Reported by: DARSHAN ALMARAZ on 04/20/18 1631 Dulaglutide (Trulicity) 1.5 Mg/0.5 Ml Pen.injctr, 1.5 MG SC WEEKLY, (Reported) Entered as Reported by: NYASIA QUIÑONES on 01/23/20 1530 Furosemide (Furosemide) 20 Mg Tablet, 20 MG PO DAILY, (Reported) Entered as Reported by: NYSAIA QUIÑONES on 01/23/20 1530 Gabapentin (Gabapentin) 800 Mg Tablet, 800 MG PO TID, (Reported) Entered as Reported by: HORACE ABARCA on 06/06/17 1157 Insulin Detemir (Levemir Flextouch) 100 Unit/1 Ml Insuln.pen, 50 UNIT SQ BID, (Reported) Entered as Reported by: NYASIA QUIÑONES on 09/26/19 1526 Insulin Lispro (Humalog Kwikpen) 100 Unit/1 Ml Insuln.pen, 40 UNIT SQ TID, (Reported) Entered as Reported by: NYASIA QUIÑONES on 01/23/20 1548 Metoprolol Tartrate (Metoprolol Tartrate) 100 Mg Tablet, 100 MG PO BID, (Reported) Entered as Reported by: DARSHAN ALMARAZ on 04/20/18 1649 Oxycodone HCl/Acetaminophen (Percocet 10-325 mg Tablet) 1 Each Tablet, 1 TAB PO Q4H PRN for PAIN-MODERATE Prescribed by: SONY SHARP on 01/27/20 1202 Physical Exam-Cardiology Physical Exam Vital Signs/I&O 04/14/21 04/14/21 04/14/21 04/14/21 09:00 09:00 12:30 13:00 Temp 36.2 Pulse 74 66 62 Resp 16 11 B/P (MAP) 203/112 (142) 186/64 Pulse Ox 94 92 O2 Delivery Room Air Room Air Nasal Cannula O2 Flow Rate 2.00 04/14/21 13:18 Pulse Ox 93 O2 Delivery Room Air Capillary Refill : Less Than 3 Seconds Constitutional: AAO x 3, well-developed, well-nourished HEENT: EOMI, hearing is well preserved; No xanthelasmas are seen Neck: carotid pulses are 2 + bilaterally, with good upstrokes Respiratory: No accessory muscle use; other (fair to good air entry, diminished at the bases) Cardiovascular: regular rate-rhythm, S1 and S2, systolic murmur (soft DARYL at the card base) Gastrointestinal: No tender; soft; No guarding, No rebound; audible bowel sounds Extremities: No clubbing, No cyanosis, No significant edema Neurologic/Psychiatric: oriented x 3, other (moves all limbs equally) Skin: No rash on exposed areas, No ulcerations on exposed areas Data Review Labs Laboratory Tests 04/14/21 09:14: White Blood Count 12.2H, Red Blood Count 4.55, Hemoglobin 12.4L, Hematocrit 39L, Mean Corpuscular Volume 86, Mean Corpuscular Hemoglobin 27, Mean Corpuscular Hemoglobin Concent 32, Red Cell Distribution Width 13.7, Platelet Count 224, Mean Platelet Volume 10.6, Immature Granulocyte % (Auto) 1, Neutrophils (%) (Auto) 73, Lymphocytes (%) (Auto) 14, Monocytes (%) (Auto) 10, Eosinophils (%) (Auto) 1, Basophils (%) (Auto) 1, Neutrophils # (Auto) 9.0H, Lymphocytes # (Auto) 1.7, Monocytes # (Auto) 1.3H, Eosinophils # (Auto) 0.1, Basophils # (Auto) 0.1, Immature Granulocyte # (Auto) 0.1, Sodium Level 134L, Potassium Level 4.4, Chloride Level 103, Carbon Dioxide Level 23, Anion Gap 8, Blood Urea Nitrogen 24H, Creatinine 1.31H, Estimat Glomerular Filtration Rate 54, BUN/Creatinine Ratio 18, Glucose Level 171H, Calcium Level 8.6, Total Creatine Kinase 245H, Troponin I 0.052H, B-Type Natriuretic Peptide 501.8H, SARS-CoV-2 RNA (RT-PCR) Not Detected Laboratory Tests 04/14/21 09:14 A/P-Cardiology Assessment/Admission Diagnosis Malignant hypertension Acute diastolic CHF due to malignant hypertension - Echo Sep: EF 60-65 percent, grade 2 diastolic dysfunction, left atrial dilatation, moderate mitral regurgitation, PA pressure 30 mmHg Mild troponin elevation: probably type 2 AR due to uncontrolled hypertension and decompensated CHF Mild to moderate nonobstructive coronary artery disease per cardiac catheterization done in 2011. Reported that he had a stress test in February 2020 at [facility]. I'll try to obtain copy of the results Hyperlipidemia, chronically treated with atorvastatin Diabetes mellitus 2 -managed by primary care physician LALITO -noncompliant with CPAP Mild bilateral carotid stenosis on u/s of May 2018. No significant PAD on seg pressures of February 2021 Discussion and Recomendations * Beta-alfie and amlodipine to control bp * Diuretics to control heart failure * ASA because of h/o mild CAD * Enoxaparin treatment until ACS excluded * Serial enzymes * Serial ECG * Monitor labs CLARE DAVENPORT MD FACP FAC CCDS Apr 14, 2021 14:55
[2021-04-14 16:00] VITALS: BP 110/70
[2021-04-14] MEDS: FUROSEMIDE 40 MG/4 ML INJ (LASIX) IVP SCH (16:56)
[2021-04-14] MEDS: inSUlin ASPART (NovoLOG) 1 UNIT/0.01 ML (CHARGE PER UNIT) SC SCH ×2 (16:56→21:34)
[2021-04-14 19:53] VITALS: BP 160/59
[2021-04-14] MEDS ORDERED: oxyCODONE/APAP 10/325MG (PERCOCET 10) TABLET PO PRN (20:15)
[2021-04-14] MEDS: GABAPENTIN 300 MG (NEURONTIN) CAP PO SCH (20:19)
[2021-04-14] MEDS: KCL 10 MEQ TAB (MICRO K) PO SCH (20:20)
[2021-04-14] MEDS ORDERED: ENOXAPARIN 60 MG/0.6 ML (LOVENOX) SYR ONE (23:30)
[2021-04-14] MEDS: ENOXAPARIN 300 MG/3 ML (LOVENOX) MULTI-DOSE VIAL SQ SCH (23:33)
[2021-04-14 23:34] VITALS: BP 160/70
[2021-04-15 04:31] VITALS: BP 171/83
[2021-04-15 05:14] LABS: HEMATOCRIT 39 % (40-54); HEMOGLOBIN 12.6 g/dL (13.3-17.7); MEAN CORPUSCULAR HEMOGLOBIN 27 pg (25-34); MEAN CORPUSCULAR HGB CONC 32 g/dL (32-36); MEAN CORPUSCULAR VOLUME 85 fL (80-99); MEAN PLATELET VOLUME 10.4 fL (9.0-12.2); PLATELET COUNT 214 10^3/uL (130-400); WHITE BLOOD COUNT 8.2 10^3/uL (4.3-11.0)
[2021-04-15 05:32] LABS: POTASSIUM 4.1 MMOL/L (3.6-5.0)
[2021-04-15 05:34] LABS: CALCIUM 8.6 MG/DL (8.5-10.1)
[2021-04-15 05:38] LABS: CREATININE SERUM 1.55 MG/DL (0.60-1.30)
[2021-04-15] MEDS: inSUlin ASPART (NovoLOG) 1 UNIT/0.01 ML (CHARGE PER UNIT) SC SCH ×4 (06:33→20:45)
[2021-04-15] MEDS: CATHETER FLUSH 10 ML SYR IV SCH ×3 (06:34→21:16)
[2021-04-15] MEDS: FUROSEMIDE 40 MG/4 ML INJ (LASIX) IVP SCH ×3 (06:34→17:33)
[2021-04-15 08:00] VITALS: BP 162/68
--- NOTE | 2021-04-15 08:31 | Cardiology Progress Note ---
Subjective Date Seen by Provider: Apr 15, 2021 Time Seen by Provider: 08:30 Subjective/Events-last exam Sitting up in bed, no new complaints. States dyspnea is improving. Objective-Cardiology Exam Last Set of Vital Signs Vital Signs 04/16/21 04/16/21 04/16/21 07:51 08:00 08:12 Temp 36.4 Pulse 61 Resp 14 B/P (MAP) 145/69 (94) Pulse Ox 99 O2 Delivery Nasal Cannula O2 Flow Rate 2.00 I&O Intake and Output 04/16/21 00:00 Intake Total 800 ml Output Total 1425 ml Balance -625 ml Intake Oral 800 ml Output Urine Total 1425 ml # Voids 6 General: Alert, Oriented X3, Cooperative HEENT: Atraumatic, PERRLA Neck: Supple, No JVD, No Thyromegaly Lungs: Other (bilat rales) Abdomen: Normal Bowel Sounds, Soft Extremities: Other (+1 BLE edema) Skin: No Rashes, No Significant Lesion Psych/Mental Status: Mental Status NL, Mood NL Results Lab Laboratory Tests 04/16/21 05:30 A/P-Cardiology Admission Diagnosis HTN Diastolic dysfunction Type II [place] DM Assessment/Plan Malignant hypertension, maintained on Norvasc, Toprol XL. History of hyperkalemia while on lisinopril. I will start losartan 25mg, HCTZ 12.5 mg, continue to monitor BP and K+ Acute diastolic CHF due to malignant hypertension, Echo Sep 2019: EF 60-65 percent, grade 2 diastolic dysfunction, left atrial dilatation, moderate mitral regurgitation, PA pressure 30 mmHg. Reevaluate 2D Echo Mild troponin elevation: probably type 2 [place] due to uncontrolled hypertension and decompensated CHF Mild to moderate nonobstructive coronary artery disease per cardiac catheterization done in 2011. Reported that he had a stress test in February 2020 at [facility]. I'll try to obtain copy of the results Hyperlipidemia, chronically treated with atorvastatin Diabetes mellitus 2 -managed by primary care physician LALITO, noncompliant with CPAP Mild bilateral carotid stenosis on u/s of May 2018. No significant PAD on seg pressures of February 2021 Supervisory-Addendum Brief Supervisory Addendum Participated in pt care: history, MDM, physical Personally performed: exam, history, MDM Care discussed with: GUNNER Results interpretation: Verified all documentation BECKA BUNN Apr 15, 2021 08:31 RODERICK BOO MD Apr 16, 2021 11:30
--- NOTE | 2021-04-15 08:39 | Cardiology Progress Note ---
Subjective Date Seen by Provider: Apr 15, 2021 Time Seen by Provider: 08:37 Subjective/Events-last exam Patient was seen in bed today, events since admission were reviewed, he is feeling better, breathing better. Blood pressure is still poorly controlled. Review of Systems General: No Chills, No Night Sweats, No Fatigue, No Malaise, No Appetite, No Other HEENT: No Head Aches, No Visual Changes, No Eye Pain, No Ear Pain, No Dysphasia, No Sinus Congestion, No Post Nasal Drip, No Sore Throat, No Other Pulmonary: Dyspnea; No Cough, No Pleuritic Chest Pain, No Other Cardiovascular: No: Chest Pain, Palpitations, Orthopnea, Paroxysmal Noc. Dyspnea, Edema, Lt Headedness, Other Objective-Cardiology Exam Last Set of Vital Signs Vital Signs 04/14/21 04/15/21 12:30 08:00 Temp 36.4 Pulse 56 Resp 18 B/P (MAP) 162/68 (99) Pulse Ox 96 O2 Delivery Room Air O2 Flow Rate 2.00 I&O Intake and Output 04/15/21 00:00 Intake Total 400 ml Output Total 900 ml Balance -500 ml Intake Oral 400 ml Output Urine Total 900 ml # Bowel Movements 1 Daily Weight Change No General: Alert, Oriented X3, Cooperative HEENT: Atraumatic, PERRLA Neck: Supple, No JVD, No Thyromegaly Lungs: Other (bilat rales) Heart: Regular Rate, Normal S1, Normal S2 Abdomen: Normal Bowel Sounds, Soft Extremities: Other (+1 BLE edema) Skin: No Rashes, No Significant Lesion Neuro: Normal Speech, Sensation Intact Psych/Mental Status: Mental Status NL, Mood NL Results Lab Laboratory Tests 04/14/21 09:14 04/15/21 04:55 A/P-Cardiology Admission Diagnosis HTN Diastolic dysfunction Type II PR DM Assessment/Plan Malignant hypertension, maintained on Norvasc, Toprol XL. History of hyperkalemia while on lisinopril. I will start losartan 25mg, HCTZ 12.5 mg, continue to monitor BP and K+ Acute diastolic CHF due to malignant hypertension, Echo Sep 2019: EF 60-65 percent, grade 2 diastolic dysfunction, left atrial dilatation, moderate mitral regurgitation, PA pressure 30 mmHg. Reevaluate 2D Echo Mild troponin elevation: probably type 2 PR due to uncontrolled hypertension and decompensated CHF, conservative management for now. Mild to moderate nonobstructive coronary artery disease per cardiac catheterization done in 2011. Reported that he had a stress test in February 2020 at [facility]. I'll try to obtain copy of the results Hyperlipidemia, chronically treated with atorvastatin Diabetes mellitus 2 -managed by primary care physician History of hyperkalemia on PAUL inhibitor, I am adding losartan HCTZ and will monitor potassium level closely LALITO, noncompliant with CPAP Mild bilateral carotid stenosis on u/s of May 2018. No significant PAD on seg pressures of February 2021 RODERICK BOO MD Apr 15, 2021 08:39
[2021-04-15] MEDS ORDERED: KCL 10 MEQ TAB (MICRO K) PO SCH (09:00)
--- NOTE | 2021-04-15 09:16 | Progress Note - Hospitalist ---
GEORGE BURNS A MED STUDENT 04/15/21 0916: Subjective HPI/CC On Admission Date Seen by Provider: Apr 15, 2021 Time Seen by Provider: 08:10 70 yo male who presented to ED with SOA since wednesday after a fall. Pt has hx of diastolic heart failure, HTN, T2DM, hyperlipidemia and peripheral neuropathy. Pt states he fell on Wednesday and hit his side and back on a bucket. His SOA is not d/t pain in his ribs, but d/t feeling he cant get enough oxygen. Pt reports SOA two years prior that resulted in a 10 day stay at . He was supposed to have a heart catheterization, but this was not done. Pt reports he sees Dr. Howell as PCP, last appt was Wednesday. Pt also sees Dr. Munguia, last appt was over 6 months ago. Pt reports his last HgbA1c was 9.5% and was down from previous value. Pt is currently in no pain, but if he twists his pain is a 4/10. Pt confirms blurry vision, headache and sweating. Denies chest pain or palpitati ons. Subjective/Events-last exam Pt is up in bed this morning, states he is feeling better than he did yesterday. Pt reports his SOA has improved. He was up walking around his room yesterday evening with little to no SOA. His appetite is good and he slept well. He is urinating frequently with bedside urinal, but reports no burning or pain with urination. Denies dizziness, headache or blurry vision. Review of Systems General: No Fatigue, No Appetite HEENT: No Head Aches, No Visual Changes Pulmonary: No Dyspnea, No Cough Cardiovascular: No: Chest Pain, Palpitations, Lt Headedness Gastrointestinal: Constipation (chronic constipation); No: Nausea, Vomiting, Abdominal Pain, Diarrhea Genitourinary: No Dysuria; Frequency (d/t lasix) Neurological: No: Weakness, Numbness Objective Exam Vital Signs Vital Signs Date Time Temp Pulse Resp B/P (MAP) Pulse Ox O2 Delivery O2 Flow Rate FiO2 04/15/21 09:00 94 Room Air 04/15/21 08:00 36.4 56 18 162/68 (99) 04/14/21 12:30 2.00 Capillary Refill : Less Than 3 Seconds General Appearance: No Apparent Distress, Obese HEENT: PERRL/EOMI Neck: Full Range of Motion, Normal Inspection Respiratory: Chest Non Tender, Normal Breath Sounds, No Accessory Muscle Use, No Respiratory Distress, Rales (bilateral) Cardiovascular: Regular Rate, Rhythm, No Murmur, Normal Peripheral Pulses Gastrointestinal: Normal Bowel Sounds, No Organomegaly, No Pulsatile Mass, Non Tender, Soft Back: Normal Inspection Extremity: Normal Capillary Refill, Normal Inspection, Normal Range of Motion, Non Tender, No Calf Tenderness, Pedal Edema (1+ pitting edema to knees) Neurologic/Psychiatric: Alert, Oriented x3, No Motor/Sensory Deficits, Normal Mood/Affect, 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 Assessment/Plan Assessment and Plan Assess & Plan/Chief Complaint Acute on Chronic diastolic heart failure HTN emergency NSTEMI T2DM Hyperlipidemia Peripheral Neuropathy Acute on Chronic diastolic heart failure -HTN emergency -Lasix are improving blood pressure -Urine output 0.31 ml/kg/hr -Amlodipine and Metoprolol started -Dr. Munguia added Lisinopril 25mg, HCTZ 12.5mg -Repeat labs tomorrow moring. -Sodium restricted diet -Pt on Lovenox therapeutic dose -NSTEMI -Will continue to monitor via telemetry T2DM -SSI -Will order HgbA1c to be done. Hyperlipidemia -Pt on atorvastatin. Peripheral Neuropathy -Pt currently on oxycodone and gabapentin, well controlled. Discussed life sustaining measures with pt and he would like to be full code status. His daughter will make medical decisions for him if he is unable. NAVYA JON MD 04/15/21 1146: Assessment/Plan Assessment and Plan Assess & Plan/Chief Complaint Patient repors feeling much better. No complaints. Now off oxygen. Echo pending. Will continue to work on BP control. Patient had cuff at home and I recommended using it more frequently to monitor his BP at home. Encouraged OOB activity and will order PT. Will request records from [facility] regarding most recent stress test. Supervisory-Addendum Brief Verification & Attestation Participated in pt care: history, MDM, physical Personally performed: exam, history, MDM, supervision of care Care discussed with: Medical Student Procedures: n/a Results interpretation: Verified all documentation Verification and Attestation of Medical Student E/M Service A medical student performed and documented this service in my presence. I reviewed and verified all information documented by the medical student and made modifications to such information, when appropriate. I personally performed the physical exam and medical decision making. Navya Jon, Apr 15, 2021,11:43 GEORGE BURNS MED STUDENT Apr 15, 2021 09:16 NAVYA JON MD Apr 15, 2021 11:46
[2021-04-15] MEDS: GABAPENTIN 300 MG (NEURONTIN) CAP PO SCH ×2 (09:39→20:44)
[2021-04-15] MEDS: LOSARTAN 25 MG (COZAAR) TAB PO SCH (09:39)
[2021-04-15] MEDS: meTOprolol SUCCINATE 100 MG (TOPROL XL) TAB PO SCH (09:39)
[2021-04-15] MEDS: amLODIPine 10 MG (NORVASC) TAB PO SCH (09:39)
[2021-04-15] MEDS: ASPIRIN 81 MG CHEW (CHILDREN'S ASA) PO SCH (09:40)
[2021-04-15] MEDS: KCL 10 MEQ TAB (MICRO K) PO SCH ×2 (09:40→20:44)
[2021-04-15] MEDS ORDERED: DOCU100C37 PO (10:46)
[2021-04-15] MEDS ORDERED: INSU100I29 SQ (10:46)
[2021-04-15] MEDS ORDERED: INSU200I SC (10:46)
[2021-04-15] MEDS ORDERED: OXYC1TAB11 PO (10:46)
[2021-04-15] MEDS ORDERED: ATOR80TA76 PO (10:46)
[2021-04-15] MEDS ORDERED: CARV12.53 PO (10:46)
[2021-04-15] MEDS ORDERED: ASPI-1238 PO (10:46)
[2021-04-15] MEDS ORDERED: GABA300C PO (11:06)
[2021-04-15] MEDS: ENOXAPARIN 300 MG/3 ML (LOVENOX) MULTI-DOSE VIAL SQ SCH ×2 (13:07→22:06)
--- NOTE | 2021-04-15 13:56 | Physical Therapy Evaluation ---
PT Evaluation-General Medical Diagnosis Admission Date Apr 14, 2021 at 11:24 Medical Diagnosis: SOA, fall Onset Date: Apr 14, 2021 Therapy Diagnosis Therapy Diagnosis: independent with mobility Height/Weight Height (Feet): 5 Height (Inches): 7.00 Weight (Pounds): 284 Weight (Ounces): 2.0 Precautions Precautions/Isolations: Fall Prevention, Standard Precautions Referral Physician: Dontrell Reason for Referral: Evaluation/Treatment Medical History Additional Medical History Past Medical History Surgeries: Cardiac, Neurological, Orthopedic Pneumonia, Sleep Apnea Currently Using CPAP: Yes (DOESNT USE IT) Hypertension Neuropathy Renal Failure Arthritis Diabetes, Insulin dep Cataract Blood Disorders: No PMHx: IDDMII: Uncontrolled HTN HLD Chronic pain CAD Obesity COPD SurgHx: Back surgery Knee scope Reviewed History: Yes Social History Home: Single Level Current Living Status: Spouse Entry Into Home: Stairs Without Railing PT Steps Into Home: 2 Prior Prior Level of Function SCALE: Activities may be completed with or without assistive devices. 6-Kcmznbhlfb-zabiqac completes the activity by him/herself with no assistance from a helper. 5-Set-up or Clean-up Assistance-helper sets up or cleans up; patient completes activity. [place] assists only prior to or following the activity. 4-Supervision or Touching Assistance-helper provides verbal cues and/or touching/steadying and/or contact guard assistance as patient completes activity. Assistance may be provided throughout the activity or intermittently. 3-Partial/Moderate Assistance-helper does LESS THAN HALF the effort. [place] lifts, holds or supports trunk or limbs, but provides less than half the effort. 2-Substantial/Maximal Assistance-helper does MORE THAN HALF the effort. [place] lifts or holds trunk or limbs and provides more than half the effort. 5-Fbwpfbjwe-xmbqnj does ALL the effort. Patient does none of the effort to complete the activity. Or, the assistance of 2 or more helpers is required for the patient to complete the activity. If activity was not attempted, code reason: 7-Patient Refused. 9-Not Applicable-not attempted and the patient did not perform the activity before the current illness, exacerbation or injury. 10-Not Attempted due to Environmental Limitations-(lack of equipment, weather restraints, etc.). 88-Not Attempted due to Medical Conditions or Safety Concerns. Bed Mobility: 6 Transfers (B,C,W/C): 6 Gait: 6 Stairs: 6 Indoor Mobility (Ambulation): Independent Stairs: Independent PT Evaluation-Current Subjective Patient in bed pre tx, agrees to PT, has no complaints of pain, states he is much better today. Pt/Family Goals "to go home" Objective Patient Orientation: Person, Place, Situation ROM/Strength ROM Lower Extremities WNL Strength Lower Extremities 5/5 gross BLE Sensory Vision: Functional Hearing: Functional Sensation Right Lower Extremit: Impaired Sensation Left Lower Extremity: Impaired Sensation Lower Extremities decreased light touch sensation in both feet Transfers Roll Left to Right (QC): 6 Sit to Lying (QC): 6 Lying to Sitting/Side of Bed(Q: 6 Sit to Stand (QC): 6 Chair/Kiw-jg-Qiypo Xfer(QC): 6 Gait Does the Patient Walk?: Yes Mode of Locomotion: Walk Anticipated Mode of Locomotion: Walk Walk 10 feet (QC): 6 Walk 50 ft with 2 Turns(QC): 6 Walk 150 ft (QC): 6 Distance: 300' Gait Assistive Device: None Comments/Gait Description independent ambulation, brisk pace, no pain Balance Sitting Static: Normal Sitting Dynamic: Normal Standing Static: Normal Standing Dynamic: Normal Assessment/Needs Patient in bed post tx with nurse call, phone, tray, all needs met. Patient in independent with functional mobility, will DC at this time Rehab Potential: Good PT Plan Treatment/Plan Treatment Plan: Discontinue PT Treatment Duration: Apr 15, 2021 Frequency: Patient and/or Family Agrees t: Yes Safety Risks/Education Patient Education: Gait Training, Transfer Techniques, Correct Positioning, Safety Issues Teaching Recipient: Patient Teaching Methods: Demonstration, Discussion Response to Teaching: Verbalize Understanding, Return Demonstration Discharge Recommendations Plan discharge Time/GCodes Time In: 1325 Time Out: 1336 Total Billed Treatment Time: 11 Total Billed Treatment 1 visit EVL 11' EDWARD SHERMAN PT Apr 15, 2021 13:56
[2021-04-15 15:13] VITALS: BP 153/87
[2021-04-15 19:40] VITALS: BP 162/63
[2021-04-16 00:20] VITALS: BP 156/83
[2021-04-16 04:00] VITALS: BP 139/85
[2021-04-16 05:50] LABS: HEMATOCRIT 43 % (40-54); HEMOGLOBIN 13.8 g/dL (13.3-17.7); MEAN CORPUSCULAR HEMOGLOBIN 27 pg (25-34); MEAN CORPUSCULAR HGB CONC 33 g/dL (32-36); MEAN CORPUSCULAR VOLUME 85 fL (80-99); MEAN PLATELET VOLUME 10.6 fL (9.0-12.2); PLATELET COUNT 230 10^3/uL (130-400); WHITE BLOOD COUNT 9.5 10^3/uL (4.3-11.0)
[2021-04-16 06:00] LABS: POTASSIUM 4.3 MMOL/L (3.6-5.0)
[2021-04-16 06:01] LABS: CALCIUM 8.7 MG/DL (8.5-10.1)
[2021-04-16 06:06] LABS: CREATININE SERUM 1.54 MG/DL (0.60-1.30)
[2021-04-16 06:08] LABS: MAGNESIUM 2.6 MG/DL (1.6-2.4)
[2021-04-16] MEDS: CATHETER FLUSH 10 ML SYR IV SCH (06:17)
[2021-04-16] MEDS: FUROSEMIDE 40 MG/4 ML INJ (LASIX) IVP SCH ×2 (06:18→09:35)
[2021-04-16] MEDS: inSUlin ASPART (NovoLOG) 1 UNIT/0.01 ML (CHARGE PER UNIT) SC SCH (06:18)
[2021-04-16 07:51] VITALS: BP 145/69
--- NOTE | 2021-04-16 08:49 | Cardiology Progress Note ---
Subjective Date Seen by Provider: Apr 16, 2021 Time Seen by Provider: 08:46 Subjective/Events-last exam Patient is sitting up in bed, denies any chest pain, reports dyspnea has improved. Review of Systems General: No Chills, No Night Sweats, No Fatigue, No Malaise, No Appetite, No Other HEENT: No Head Aches, No Visual Changes, No Eye Pain, No Ear Pain, No Dysphasia, No Sinus Congestion, No Post Nasal Drip, No Sore Throat, No Other Pulmonary: No Dyspnea, No Cough, No Pleuritic Chest Pain, No Other Cardiovascular: No: Chest Pain, Palpitations, Orthopnea, Paroxysmal Noc. Dyspnea, Edema, Lt Headedness, Other Objective-Cardiology Exam Last Set of Vital Signs Vital Signs 04/16/21 04/16/21 04/16/21 07:51 08:00 08:12 Temp 36.4 Pulse 61 Resp 14 B/P (MAP) 145/69 (94) Pulse Ox 99 O2 Delivery Nasal Cannula O2 Flow Rate 2.00 I&O Intake and Output 04/16/21 00:00 Intake Total 800 ml Output Total 1425 ml Balance -625 ml Intake Oral 800 ml Output Urine Total 1425 ml # Voids 6 General: Alert, Oriented X3, Cooperative HEENT: Atraumatic, PERRLA Neck: Supple, No JVD, No Thyromegaly Lungs: Clear to Auscultation, Normal Air Movement Heart: Regular Rate, Normal S1, Normal S2 Abdomen: Normal Bowel Sounds, Soft Extremities: No Edema Skin: No Rashes, No Significant Lesion Neuro: Normal Speech, Sensation Intact Psych/Mental Status: Mental Status NL, Mood NL Results Lab Laboratory Tests 04/16/21 05:30 A/P-Cardiology Admission Diagnosis HTN Diastolic dysfunction Type II MT DM Assessment/Plan Malignant hypertension, maintained on Norvasc, Toprol XL. History of hyperkalemia while on lisinopril. Started on losartan 25mg, HCTZ 12.5 mg, continue to monitor BP and K+ Acute diastolic CHF due to malignant hypertension, Echo Apr 15 2021: EF 55-65 percent, grade 2 diastolic dysfunction, left atrial dilatation, moderate mitral regurgitation, PA pressure 25 mmHg. Mild troponin elevation: probably type 2 [place] due to uncontrolled hypertension and decompensated CHF, conservative management for now. Mild to moderate nonobstructive coronary artery disease per cardiac catheterization done in 2011. Reported that he had a stress test in February 2020 at [facility]. I'll try to obtain copy of the results Hyperlipidemia, chronically treated with atorvastatin Diabetes mellitus 2 -managed by primary care physician History of hyperkalemia on PAUL inhibitor, I am adding losartan HCTZ and will monitor potassium level closely LALITO, noncompliant with CPAP Mild bilateral carotid stenosis on u/s of May 2018. No significant PAD on seg pressures of February 2021 Patient was seen and evaluated with Silvina, examination performed, management plan was discussed, agree with the current scribed note, I made few changes to the note using Italic font Patient was seen at bedside, laying down comfortably, no new complaint Blood pressure is better controlled Started on losartan/HCTZ I discontinued potassium and Lasix Okay for discharge and follow-up in 1 week as an outpatient, I will evaluate BMP in 1 week. Supervisory-Addendum Brief Supervisory Addendum Participated in pt care: history, MDM, physical Personally performed: exam, history, MDM Care discussed with: GUNNER Results interpretation: Verified all documentation SILVINA BUNN Apr 16, 2021 08:49 RODERICK BOO MD Apr 16, 2021 11:29
[2021-04-16] MEDS ORDERED: MTP100TCR PO (09:25)
[2021-04-16] MEDS ORDERED: Hydrochlorothiazide PO (09:25)
[2021-04-16] MEDS ORDERED: LOSA25TA41 PO (09:25)
[2021-04-16] MEDS: amLODIPine 10 MG (NORVASC) TAB PO SCH (09:34)
[2021-04-16] MEDS: meTOprolol SUCCINATE 100 MG (TOPROL XL) TAB PO SCH (09:34)
[2021-04-16] MEDS: LOSARTAN 25 MG (COZAAR) TAB PO SCH (09:34)
[2021-04-16] MEDS: ASPIRIN 81 MG CHEW (CHILDREN'S ASA) PO SCH (09:34)
[2021-04-16] MEDS: KCL 10 MEQ TAB (MICRO K) PO SCH (09:34)
[2021-04-16] MEDS: GABAPENTIN 300 MG (NEURONTIN) CAP PO SCH (09:34)
--- NOTE | 2021-04-16 10:06 | Discharge Inst-Simple/Standard ---
Discharge Inst-Standard Patient Instructions/Follow Up Plan of Care/Instructions/FU: Please continue to take your medications as written. Please wear your CPAP nightly and start checking your blood pressure at home and logging it for your follow up appointments. Please keep your follow up Dr Howell and Dr Munguia as scheduled. Activity as Tolerated: Yes Discharge Diet: Low Sodium Diet, ADA Diet Return to The Hospital For: Chest pain, shortness of breath, weakness, fever, if you feel you are getting worse. JODI REYNA MD Apr 16, 2021 10:06
--- NOTE | 2021-04-16 10:07 | Discharge Summary ---
GEORGE BURNS MED STUDENT 04/16/21 1007: Diagnosis/Chief Complaint Date of Admission Apr 14, 2021 at 11:24 Date of Discharge Apr 16, 2021 Discharge Date: Apr 16, 2021 Admission Diagnosis Acute on chronic diastolic heart failure with HTN emergency and NSTEMI Primary Care Kemar Crowley DO Discharge Diagnosis (1) Hypertensive emergency Status: Acute Assessment & Plan: HTN resolved Losartan, HCTZ, Amlodipine and Metoprolol and Lasix started. Low sodium diet Advised pt to take BPs at home regularly and be compliant with medications. (2) CHF (congestive heart failure) Assessment & Plan: Pt to f/u with Dr. Munguia in 4 weeks. (3) NSTEMI (non-ST elevated myocardial infarction) Status: Acute Assessment & Plan: F/u with Dr. Munguia in 4 weeks. (4) Insulin dependent diabetes mellitus with complications Status: Chronic Assessment & Plan: Advised pt to be compliant with at home medications and check blood sugars daily. (5) BMI 40.0-44.9, adult Status: Chronic (6) HLD (hyperlipidemia) Status: Chronic Assessment & Plan: Continue Atorvastatin (7) CAD (coronary artery disease) Status: Chronic Assessment & Plan: F/u with Dr. Munguia. (8) DVT prophylaxis Status: Acute (9) Renal insufficiency Status: Acute Discharge Summary Procedures/Consulations Pt to f/u with Dr. Munguia in [address] Crowley in 1 week. Labs to be done in 1 week. Discharge Physical Exam Allergies: Coded Allergies: No Known Drug Allergies (Unverified , 10/08/11) Vitals & I&Os Vital Signs Date Time Temp Pulse Resp B/P (MAP) Pulse Ox O2 Delivery O2 Flow Rate FiO2 04/16/21 08:12 Nasal Cannula 2.00 04/16/21 07:51 36.4 61 14 145/69 (94) 95 General Appearance: No Apparent Distress, WD/WN HEENT: PERRL/EOMI Respiratory: Chest Non Tender, Lungs Clear, Normal Breath Sounds, No Accessory Muscle Use, No Respiratory Distress Cardiovascular: Regular Rate, Rhythm, No Murmur, Normal Peripheral Pulses Gastrointestinal: Normal Bowel Sounds, No Organomegaly, No Pulsatile Mass, Non Tender, Soft Extremity: Normal Capillary Refill, Normal Inspection, Normal Range of Motion, Non Tender, No Calf Tenderness, No Pedal Edema Skin: Normal Color, Warm/Dry Neurologic/Psychiatric: Alert, Oriented x3, No Motor/Sensory Deficits, Normal Mood/Affect, tongue lining stitcher II-XII Norm as Tested Hospital Course Labs (last 24 hrs) Laboratory Tests 04/15/21 11:01: Glucometer 201H 04/15/21 17:21: Glucometer 253H 04/15/21 20:31: Glucometer 248H 04/16/21 05:30: White Blood Count 9.5, Red Blood Count 5.03, Hemoglobin 13.8, Hematocrit 43, Mean Corpuscular Volume 85, Mean Corpuscular Hemoglobin 27, Mean Corpuscular Hemoglobin Concent 33, Red Cell Distribution Width 13.6, Platelet Count 230, Mean Platelet Volume 10.6, Sodium Level 136, Potassium Level 4.3, Chloride Level 100, Carbon Dioxide Level 25, Anion Gap 11, Blood Urea Nitrogen 40H, Creatinine 1.54H, Estimat Glomerular Filtration Rate 45, BUN/Creatinine Ratio 26, Glucose Level 160H, Calcium Level 8.7, Magnesium Level 2.6H 04/16/21 06:15: Glucometer 162H Patient resulted labs reviewed. Pending Labs Laboratory Tests 04/16/21 05:30: White Blood Count 9.5, Red Blood Count 5.03, Hemoglobin 13.8, Hematocrit 43, Mean Corpuscular Volume 85, Mean Corpuscular Hemoglobin 27, Mean Corpuscular Hemoglobin Concent 33, Red Cell Distribution Width 13.6, Platelet Count 230, Mean Platelet Volume 10.6, Sodium Level 136, Potassium Level 4.3, Chloride Level 100, Carbon Dioxide Level 25, Anion Gap 11, Blood Urea Nitrogen 40, Creatinine 1.54, Estimat Glomerular Filtration Rate 45, BUN/Creatinine Ratio 26, Glucose Level 160, Calcium Level 8.7, Magnesium Level 2.6 04/16/21 06:15: Glucometer 162 Imaging: Reviewed Imaging Report Discharge Home Medications: Active Scripts Active [Hydrochlorothiazide] 12.5 MG Cap 12.5 Mg PO DAILY@0900 Losartan Potassium 25 Mg Tablet 25 Mg PO DAILY Metoprolol Succinate 100 Mg Tab.er.24h 100 Mg PO DAILY Reported Neurontin (Gabapentin) 300 Mg Capsule 300 Mg PO TID Docusate Sodium 100 Mg Capsule 300 Mg PO HS Aspirin EC (Aspirin) 81 Mg Tablet.dr 81 Mg PO DAILY Levemir Flextouch (Insulin Detemir) 100 Unit/1 Ml Insuln.pen 32 Unit SQ DAILY Carvedilol 12.5 Mg Tablet 12.5 Mg PO BID Oxycodone-Acetaminophen 5-325 (Oxycodone HCl/Acetaminophen) 1 Each Tablet 1-2 Ea PO Q4H PRN MDD 8 TABS Humalog Kwikpen (Insulin Lispro) 200 Unit/1 Ml Insuln.pen 18 Units SC BIDAC Atorvastatin Calcium 80 Mg Tablet 80 Mg PO DAILY Furosemide 20 Mg Tablet 20 Mg PO DAILY Levemir Flextouch (Insulin Detemir) 100 Unit/1 Ml Insuln.pen 52 Unit SQ HS Amlodipine Besylate 10 Mg Tablet 10 Mg PO DAILY Instructions to patient/family Please see electronic discharge instructions given to patient. Supervisory-Addendum Brief Verification & Attestation Participated in pt care: history, physical Personally performed: exam, history, supervision of care Care discussed with: Medical Student NAVYA JNO MD 04/20/21 1344: Discharge Summary Discharge Physical Exam Allergies: Coded Allergies: No Known Drug Allergies (Unverified , 10/08/11) Hospital Course Patient is a 70-year-old with past medical history of diastolic heart failure and coronary artery disease who presented to the emergency department with shortness of breath. He was found to have an acute diastolic congestive heart failure exacerbation secondary to malignant hypertension. He reports an consistent compliance with his medication regimen at home. He was restarted on antihypertensives and his blood pressure improved. He was diuresed and did well. He was able to be titrated off of oxygen. He was discharged in stable improved condition to follow-up with his primary care physician Dr. CROWLEY and his primary sealer operator Dr. Munguia. Discussion & Recommendations Discharge Planning: >30 minutes discharge planning Supervisory-Addendum Brief Verification & Attestation Participated in pt care: history, MDM, physical Personally performed: exam, history, MDM, supervision of care Care discussed with: Medical Student Procedures: n/a Results interpretation: Verified all documentation Verification and Attestation of Medical Student E/M Service A medical student performed and documented this service in my presence. I reviewed and verified all information documented by the medical student and made modifications to such information, when appropriate. I personally performed the physical exam and medical decision making. Navya Jon, Apr 20, 2021,13:47 Problem Qualifiers (1) CHF (congestive heart failure): Heart failure type: diastolic Heart failure chronicity: acute on chronic Qualified Codes: I50.33 - Acute on chronic diastolic (congestive) heart failure GEORGE BURNS MED STUDENT Apr 16, 2021 10:07 NAVYA JON MD Apr 20, 2021 13:44
[2021-04-16 11:53] VITALS: BP 137/67
== END 2021-04-16 10:11 | disposition home or self-care (01) ==
LOC: EDUNIT# 08:57 → ER 08:59 → UNDOADMOB 11:24 → CSD 11:24 → UNDODISOB 04-16 12:30
PROVIDERS: ADMIT Family Medicine; ATTEND Family Medicine
DX: I16.1 Hypertensive emergency (principal); I50.33 Acute on chronic diastolic (congestive) heart failure; I25.10 Atherosclerotic heart disease of native coronary artery without angina pectoris; I11.0 Hypertensive heart disease with heart failure; I21.4 Non-ST elevation (NSTEMI) myocardial infarction; I65.23 Occlusion and stenosis of bilateral carotid arteries; E11.42 Type 2 diabetes mellitus with diabetic polyneuropathy; E78.5 Hyperlipidemia, unspecified; N19 Unspecified kidney failure; G47.33 Obstructive sleep apnea (adult) (pediatric); G89.29 Other chronic pain; J44.9 Chronic obstructive pulmonary disease, unspecified; Z79.899 Other long term (current) drug therapy; Z79.4 Long term (current) use of insulin; Z99.89 Dependence on other enabling machines and devices; Z68.41 Body mass index [BMI] 40.0-44.9, adult; Z79.891 Long term (current) use of opiate analgesic; Z79.82 Long term (current) use of aspirin; Z83.3 Family history of diabetes mellitus; Z82.3 Family history of stroke; Z80.9 Family history of malignant neoplasm, unspecified
CPT/HCPCS: 71045; 80048 ×3; 82550; 82947 ×3; 83036; 83735; 83880; 84484; 85025; 85027 ×2; 87636; 93005 ×2; 93306; 96372; 96374; 97161; 99284; G0378; 36415

== ENCOUNTER 2021-05-08 23:32 | Emergency (ER) | payer MEDICARE ==
[~2021-05-08] VITALS: Ht 170 cm; Wt 119.8 kg
[~2021-05-08 23:32] MED LIST changes: +ASPI-1238 PO; +ATOR80TA76 PO; +CARV12.53 PO; +DOCU100C37 PO; +GABA300C PO; +Hydrochlorothiazide PO; +INSU200I SC; +LOSA25TA41 PO; +MTP100TCR PO; +OXYC1TAB11 PO
--- NOTE | 2021-05-08 23:59 | ED Back Pain ---
General Chief Complaint: Back Problems Stated Complaint: RT SIDE PAIN,KIDNEY PAIN,FALL 1 WEEK AGO Source of Information: Patient Exam Limitations: No Limitations History of Present Illness Date Seen by Provider: May 08, 2021 Time Seen by Provider: 23:44 Initial Comments Patient is a 71-year-old male who presents to the emergency department today with a chief complaint of right flank pain. Patient states he had onset of symptoms yesterday. He states that the pain is located low in the right flank. He has been taking oxycodone 4 times a day, as his usual. He states the pain medications help for a few hours and the pain comes back. He denies nausea or vomiting. He denies black or bloody stools. States most of the time he is constipated secondary to his pain medication usage. He states the pain tends to run down into the right thigh a little bit. Laying down intensifies the pain. No pain in the testicles or groin. No numbness weakness in the legs. No abd ominal pain no central back pain. He has had back surgery in the past. Patient relates a story of falling over a 5 gallon bucket 2 to 3 weeks ago. He thinks that might've been the cause of his discomfort but it just started yesterday. All other ROS reviewed and negative except as stated. Location: Other (low fight flank) Timing/Duration: 1-2 Days Severity: Moderate Pain/Injury Location: Back (low right flank) Radiation: Upper Legs (right thigh) Method of Injury: Fall (2-3 weeks ago) Modifying Factors: Improves With Other (laying supine) Associated Symptoms: denies symptoms Allergies and Home Medications Allergies Coded Allergies: No Known Drug Allergies (Unverified , 10/08/11) Patient Home Medication List Home Medication List Reviewed: Yes Amlodipine Besylate (Amlodipine Besylate) 10 Mg Tablet, 10 MG PO DAILY, (Reported) Entered as Reported by: NYASIA QUIÑONES on 09/26/19 1438 Aspirin (Aspirin EC) 81 Mg Tablet.dr, 81 MG PO DAILY, (Reported) Entered as Reported by: NYASIA QUIÑONES on 04/15/21 1046 Atorvastatin Calcium (Atorvastatin Calcium) 80 Mg Tablet, 80 MG PO DAILY, (Reported) Entered as Reported by: NYASIA QUIÑONES on 04/15/21 1046 Docusate Sodium (Docusate Sodium) 100 Mg Capsule, 300 MG PO HS, (Reported) Entered as Reported by: NYASIA QUIÑONES on 04/15/21 1046 Furosemide (Furosemide) 20 Mg Tablet, 20 MG PO DAILY, (Reported) Entered as Reported by: NYASIA QUIÑONES on 01/23/20 1530 Gabapentin (Neurontin) 300 Mg Capsule, 300 MG PO TID, (Reported) Entered as Reported by: NYASIA QUIÑONES on 04/15/21 1106 Insulin Detemir (Levemir Flextouch) 100 Unit/1 Ml Insuln.pen, 52 UNIT SQ HS, (Reported) Entered as Reported by: NYASIA QUIÑONES on 09/26/19 1526 Insulin Detemir (Levemir Flextouch) 100 Unit/1 Ml Insuln.pen, 32 UNIT SQ DAILY, (Reported) Entered as Reported by: NYASIA QUIÑONES on 04/15/21 104 Insulin Lispro (Humalog Kwikpen) 200 Unit/1 Ml Insuln.pen, 18 UNITS SC BIDAC, (Reported) Entered as Reported by: NYASIA QUIÑONES on 04/15/21 104 Losartan Potassium (Losartan Potassium) 25 Mg Tablet, 25 MG PO DAILY Prescribed by: JODI REYNA on 04/16/21924 Metoprolol Succinate (Metoprolol Succinate) 100 Mg Tab.er.24h, 100 MG PO DAILY Prescribed by: JODI REYNA on 04/16/21924 Oxycodone HCl/Acetaminophen (Oxycodone-Acetaminophen 5-325) 1 Each Tablet, 1-2 EA PO Q4H PRN for PAIN-MODERATE (5-7), (Reported) Entered as Reported by: NYASIA QUIÑONES on 04/15/21 104 [Hydrochlorothiazide] 12.5 MG CAP, 12.5 MG PO DAILY@0900 Prescribed by: JODI REYNA on 04/16/21924 Review of Systems Constitutional: see HPI EENTM: no symptoms reported Respiratory: no symptoms reported Cardiovascular: no symptoms reported Gastrointestinal: no symptoms reported Genitourinary: no symptoms reported Musculoskeletal: back pain Skin: no symptoms reported Psychiatric/Neurological: No Symptoms Reported All Other Systems Reviewed Negative Unless Noted: Yes Past Fzmbwkd-Otbnok-Zhtysj Hx Immunizations Up To Date Tetanus Booster (TDap): Unknown First/Initial COVID19 Vaccinat: SEPTEMBER 29 Second COVID19 Vaccination [place]: OCTOBER 27 Seasonal Allergies Seasonal Allergies: No Past Medical History Surgeries: Yes (BACK SURGERY 2017 AT [facility] KNEE [employer] 20 YRS AGO) Cardiac, Neurological, Orthopedic Respiratory: Yes Pneumonia, Sleep Apnea Currently Using CPAP: Yes (DOESNT USE IT) Cardiac: Yes Hypertension Neurological: Yes Neuropathy Reproductive Disorders: No Genitourinary: Yes (LEFT KIDNEY CYST) Renal Failure Gastrointestinal: No Musculoskeletal: Yes Arthritis Endocrine: Yes Diabetes, Insulin dep HEENT: Yes (WEARS GLASSES) Cataract Cancer: No Psychosocial: No Integumentary: No Blood Disorders: No Family Medical History Cardiovascular disease 19 FATHER Completed stroke G8 BROTHER Diabetes mellitus G8 BROTHER Kidney disease G8 BROTHER Neoplasm 19 MOTHER Cancer, CAD Under 55 Years Old, Diabetes Physical Exam Vital Signs Vital Signs - First Documented 05/08/21 23:41 Temp 35.4 Pulse 56 Resp 16 B/P (MAP) 149/105 (120) Pulse Ox 98 O2 Delivery Room Air Capillary Refill : Height, Weight, BMI Height: 5'7.00" Weight: 284lbs. 2.0oz. 128.255841cy; 41.32 BMI Method:Stated General Appearance: No Apparent Distress, WD/WN, Other (patient sitting up at the bedside in a wheelchair) HEENT: PERRL/EOMI Cardiovascular: Regular Rate, Rhythm Respiratory: Lungs Clear, Normal Breath Sounds, No Accessory Muscle Use, No Respiratory Distress Gastrointestinal: Normal Bowel Sounds, Non Tender, Soft Back: Other (old midline scar noted, upper lumbar; I am unable to reproduce the tenderness on palpation of the right flank. no overlying rash/erythema; negative straigh leg raise.) Extremity: Normal Inspection, Non Tender, No Calf Tenderness, Pedal Edema (trace) Neurologic/Psychiatric: Alert, Oriented x3, No Motor/Sensory Deficits, Normal Mood/Affect, brimmer blocker II-XII Norm as Tested Skin: Normal Color, Warm/Dry Progress/Results/Core Measures Results/Orders Lab Results Laboratory Tests Test 05/08/21 00:00 05/08/21 23:55 Range/Units White Blood Count 8.3 4.3-11.0 10^3/uL Red Blood Count 4.95 4.30-5.52 10^6/uL Hemoglobin 13.7 13.3-17.7 g/dL Hematocrit 42 40-54 % Mean Corpuscular Volume 86 80-99 fL Mean Corpuscular Hemoglobin 28 25-34 pg Mean Corpuscular Hemoglobin Concent 32 32-36 g/dL Red Cell Distribution Width 14.0 10.0-14.5 % Platelet Count 209 130-400 10^3/uL Mean Platelet Volume 10.0 9.0-12.2 fL Immature Granulocyte % (Auto) 0 % Neutrophils (%) (Auto) 60 42-75 % Lymphocytes (%) (Auto) 31 12-44 % Monocytes (%) (Auto) 6 0-12 % Eosinophils (%) (Auto) 2 0-10 % Basophils (%) (Auto) 1 0-10 % Neutrophils # (Auto) 5.0 1.8-7.8 10^3/uL Lymphocytes # (Auto) 2.5 1.0-4.0 10^3/uL Monocytes # (Auto) 0.5 0.0-1.0 10^3/uL Eosinophils # (Auto) 0.2 0.0-0.3 10^3/uL Basophils # (Auto) 0.1 0.0-0.1 10^3/uL Immature Granulocyte # (Auto) 0.0 0.0-0.1 10^3/uL Sodium Level 135 135-145 MMOL/L Potassium Level 4.7 3.6-5.0 MMOL/L Chloride Level 100 98-107 MMOL/L Carbon Dioxide Level 25 21-32 MMOL/L Anion Gap 10 5-14 MMOL/L Blood Urea Nitrogen 30 H 7-18 MG/DL Creatinine 1.55 H 0.60-1.30 MG/DL Estimat Glomerular Filtration Rate 44 BUN/Creatinine Ratio 19 Glucose Level 189 H 70-105 MG/DL Calcium Level 9.1 8.5-10.1 MG/DL Urine Color YELLOW Urine Clarity SL CLOUDY Urine pH 7.0 5-9 Urine Specific [place] 1.015 L 1.016-1.022 Urine Protein TRACE H NEGATIVE Urine Glucose (UA) TRACE H NEGATIVE Urine Ketones NEGATIVE NEGATIVE Urine Nitrite NEGATIVE NEGATIVE Urine Bilirubin NEGATIVE NEGATIVE Urine Urobilinogen 1.0 < = 1.0 MG/DL Urine Leukocyte Esterase 1+ H NEGATIVE Urine RBC (Auto) TRACE-L NEGATIVE Urine RBC 0-2 /HPF Urine WBC 5-10 H /HPF Urine Squamous Epithelial Cells 2-5 /HPF Urine Crystals NONE /LPF Urine Bacteria LARGE H /HPF Urine Casts NONE /LPF Urine Mucus NEGATIVE /LPF Urine Culture Indicated YES My Orders Orders - LANI CARO MD Ed Iv/Invasive Line Start (05/08/21 23:53) Cbc With Automated Diff (05/08/21 23:53) Basic Metabolic Panel (05/08/21 23:53) Ua Culture If Indicated (05/08/21 23:53) Urine Culture (05/08/21 23:55) Lidocaine 4% Patch (Salonpas 4% Patch) (05/09/21 09:00) Cephalexin Capsule (Keflex Capsule) (05/09/21 00:49) Vital Signs/I&O 05/08/21 23:41 Temp 35.4 Pulse 56 Resp 16 B/P (MAP) 149/105 (120) Pulse Ox 98 O2 Delivery Room Air Progress Progress Note : Time: 00:51 Progress Note patient seems comfortable. he is due for an oxycodone. VS are stable. exam is benign. UA is infected. no worsening of renal function or change in WBC. H/H normal. Patient will be started on antibiotics and given a lidocaine patch. HE is advised to follow up with his PCP in the morning. Given good return precautions. He is comfortable with the plan of care. All questions are sought and answered. Patient is stable for discharge. Departure Impression Primary Impression: Right flank pain Additional Impression: Urinary tract infection Qualified Codes: N39.0 - Urinary tract infection, site not specified Disposition: 01 HOME, SELF-CARE Condition: Stable Departure-Patient Inst. Decision time for Depature: 00:54 Referrals: LINSEY CROWLEY DO (PCP/Family) Primary Care Physician Patient Instructions: Abdominal Pain, Adult ED Add. Discharge Instructions: Drink plenty of fluids to stay well hydrated. Take the antibiotics as directed. Use over the counter LIDOCAINE patches over hte area as directed on the box, for pain. (also brand name Salon Pas). Please call your primary care doctor in the morning for a follow up appointment. Come back to the Emergency Department for any new, concerning or emergent complaints. Scripts Cephalexin (Cephalexin) 500 Mg Tablet 500 MG PO TID for 7 Days, #21 TAB Prov: LANI CARO MD 05/09/21 Copy Copies To 1: KELLENLINSEY CARVALOH KATHRYN M MD May 08, 2021 23:59
[2021-05-09 00:09] LABS: BILIRUBIN,URINE NEGATIVE (NEGATIVE); CLARITY,URINE SL CLOUDY; COLOR,URINE YELLOW; GLUCOSE, URINE (UA) TRACE (NEGATIVE); KETONES,URINE NEGATIVE (NEGATIVE); LEUKOCYTE ESTERASE ,URINE 1+ (NEGATIVE); NITRITE,URINE NEGATIVE (NEGATIVE); PROTEIN,URINE TRACE (NEGATIVE)
[2021-05-09 00:10] LABS: BASOPHILS # (AUTO) 0.1 10^3/uL (0.0-0.1); BASOPHILS % (AUTO) 1 % (0-10); EOSINOPHILS # (AUTO) 0.2 10^3/uL (0.0-0.3); EOSINOPHILS % (AUTO) 2 % (0-10); HEMATOCRIT 42 % (40-54); HEMOGLOBIN 13.7 g/dL (13.3-17.7); LYMPHOCYTES # (AUTO) 2.5 10^3/uL (1.0-4.0); LYMPHOCYTES % (AUTO) 31 % (12-44); MEAN CORPUSCULAR HEMOGLOBIN 28 pg (25-34); MEAN CORPUSCULAR HGB CONC 32 g/dL (32-36); MEAN CORPUSCULAR VOLUME 86 fL (80-99); MONOCYTES # (AUTO) 0.5 10^3/uL (0.0-1.0); MONOCYTES % (AUTO) 6 % (0-12); NEUTROPHILS % (AUTO) 60 % (42-75); PLATELET COUNT 209 10^3/uL (130-400); WHITE BLOOD COUNT 8.3 10^3/uL (4.3-11.0)
[2021-05-09 00:16] LABS: RBC,URINE 0-2 /HPF
[2021-05-09 00:17] LABS: BACTERIA,URINE LARGE /HPF
[2021-05-09 00:18] LABS: POTASSIUM 4.7 MMOL/L (3.6-5.0)
[2021-05-09 00:19] LABS: CALCIUM 9.1 MG/DL (8.5-10.1)
[2021-05-09 00:23] LABS: CREATININE SERUM 1.55 MG/DL (0.60-1.30)
[2021-05-09] MEDS ORDERED: CEPHALEXIN 250 MG (KEFLEX) CAP PO STA (00:49)
[2021-05-09] MEDS ORDERED: CEPH500T PO (00:57)
[2021-05-09 01:10] VITALS: BP 139/99
[2021-05-09] MEDS ORDERED: LIDOCAINE 4% (SALONPAS) PATCH TOP SCH (09:00)
== END 2021-05-09 01:14 | disposition home or self-care (01) ==
LOC: EDUNIT# 23:32 → ER 23:36
DX: N39.0 Urinary tract infection, site not specified (principal); G47.30 Sleep apnea, unspecified; I10 Essential (primary) hypertension; E11.9 Type 2 diabetes mellitus without complications; Z79.4 Long term (current) use of insulin; Z79.82 Long term (current) use of aspirin; Z79.899 Other long term (current) drug therapy
CPT/HCPCS: 36415; 80048; 81000; 85025; 87077; 87088; 87186

== ENCOUNTER → 2021-07-29 | Outpatient (CLI) | payer MEDICARE ==
[~2021-07-29] MED LIST changes: +CEPH500T PO
[2021-07-29 15:20] LABS: POTASSIUM 4.5 MMOL/L (3.6-5.0)
[2021-07-29 15:21] LABS: ALBUMIN 3.8 GM/DL (3.2-4.5); CALCIUM 8.7 MG/DL (8.5-10.1)
[2021-07-29 15:23] LABS: TOTAL PROTEIN 6.6 GM/DL (6.4-8.2)
[2021-07-29 15:25] LABS: BILIRUBIN,TOTAL 0.9 MG/DL (0.1-1.0)
[2021-07-29 15:27] LABS: CREATININE SERUM 1.72 MG/DL (0.60-1.30)
== END ==
LOC: LAB 14:40
PROVIDERS: ATTEND Physician Assistant
DX: E78.2 Mixed hyperlipidemia (principal)
CPT/HCPCS: 36415; 80053; 80061

== ENCOUNTER 2022-10-19 17:04 | Emergency (ER) | payer MEDICARE, OTHER ==
[~2022-10-19] VITALS: Ht 170 cm; Wt 118.8 kg
[~2022-10-19 17:04] MED LIST changes: +ALBU8.5H6 IH; -RT-ALBUINH IH
[2022-10-19 17:21] VITALS: BP 146/55
[2022-10-19 17:36] LABS: BASOPHILS # (AUTO) 0.1 10^3/uL (0.0-0.1); BASOPHILS % (AUTO) 1 % (0-10); EOSINOPHILS # (AUTO) 0.3 10^3/uL (0.0-0.3); EOSINOPHILS % (AUTO) 4 % (0-10); HEMATOCRIT 40 % (40-54); HEMOGLOBIN 13.1 g/dL (13.3-17.7); LYMPHOCYTES # (AUTO) 2.1 10^3/uL (1.0-4.0); LYMPHOCYTES % (AUTO) 23 % (12-44); MEAN CORPUSCULAR HEMOGLOBIN 28 pg (25-34); MEAN CORPUSCULAR HGB CONC 32 g/dL (32-36); MEAN CORPUSCULAR VOLUME 88 fL (80-99); MEAN PLATELET VOLUME 11.3 fL (9.0-12.2); MONOCYTES # (AUTO) 0.6 10^3/uL (0.0-1.0); MONOCYTES % (AUTO) 7 % (0-12); NEUTROPHILS # (AUTO) 6.1 10^3/uL (1.8-7.8); NEUTROPHILS % (AUTO) 65 % (42-75); PLATELET COUNT 195 10^3/uL (130-400); WHITE BLOOD COUNT 9.3 10^3/uL (4.3-11.0)
[2022-10-19 17:41] LABS: POTASSIUM 4.5 MMOL/L (3.6-5.0)
[2022-10-19 17:42] LABS: CALCIUM 8.9 MG/DL (8.5-10.1)
[2022-10-19 17:47] LABS: CREATININE SERUM 2.9 MG/DL (0.60-1.30)
--- NOTE | 2022-10-19 17:52 | ED Cardiac General ---
History of Present Illness General Chief Complaint: Cardiac/General Problems Stated Complaint: IRR HEART RATE/SOA/HIGH BLOOD SUGAR/LOW BP Nursing Triage Note: PT SENT TO TO ED FROM DR OFFICE FOR HYPOTENSION, HIGH GLUCOSE, HYPOXIA, AND IRREGULAR EKG. PT STATES HE WAS AT HIS DR OFFICE FOR A ROUTINE VISIT REGARDING HIS DM. PT DENIES ANY CP AT THIS TIME. Source: patient Exam Limitations: no limitations (LANI CARO MD) History of Present Illness Date Seen by Provider: Oct 19, 2022 Time Seen by Provider: 17:35 Initial Comments Patient is a 72-year-old male who presents to the emergency department today with a chief complaint of report of low blood pressure, high blood sugar, low oxygen" abnormal" EKG. Patient states that he went to his doctor's office for routine visit regarding his diabetes. He states his blood sugar was in the 200 range which is normal, "it is always high". He denies any recent illnesses such as fevers, chills, productive cough. He states he is not short of breath. He is not having chest pain. No abdominal pain, nausea or vomiting. No problems with bowel or bladder. No unusual swelling in his legs. No changes to his medications recently. He states he has seen Dr. Munguia in the past and was diagnosed with congestive heart failure. He has not had any issues. He states he has had 3 heart caths but never had intervention such as angioplasty or stent placement. No sick contacts at home. Nursing reports that he was not hypoxic at arrival his room air oxygen sat was 97 to 99%. His systolic blood pressure is in the 140s. His EKG is reviewed today, compared to the most previous in our medical record from April 2021 and the EKG appears identical. 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 (81) Associated Systoms: Denies Symptoms (LANI CARO MD) Allergies and Home Medications Allergies Coded Allergies: No Known Drug Allergies (Unverified , 10/08/11) Patient Home Medication List Home Medication List Reviewed: Yes (LANI CARO MD) Amlodipine Besylate (Amlodipine Besylate) 10 Mg Tablet, 10 MG PO DAILY, (Reported) Entered as Reported by: NYASIA QUIÑONES on 09/26/19 1438 Aspirin (Aspirin EC) 81 Mg Tablet., 81 MG PO DAILY, (Reported) Entered as Reported by: NYASIA QUIÑONES on 04/15/21 104 Atorvastatin Calcium (Atorvastatin Calcium) 80 Mg Tablet, 80 MG PO DAILY, (Reported) Entered as Reported by: NYASIA QUIÑONES on 04/15/21 104 Cephalexin (Cephalexin) 500 Mg Tablet, 500 MG PO TID Prescribed by: LANI CARO on 05/09/21 0057 Docusate Sodium (Docusate Sodium) 100 Mg Capsule, 300 MG PO HS, (Reported) Entered as Reported by: NYASIA QUIÑONES on 04/15/21 104 Furosemide (Furosemide) 20 Mg Tablet, 20 MG PO DAILY, (Reported) Entered as Reported by: NYASIA QUIÑONES on 01/23/20 1530 Gabapentin (Neurontin) 300 Mg Capsule, 300 MG PO TID, (Reported) Entered as Reported by: NYASIA QUIÑONES on 04/15/21 1106 Insulin Detemir (Levemir Flextouch) 100 Unit/1 Ml Insuln.pen, 52 UNIT SQ HS, (Reported) Entered as Reported by: NYASIA QUIÑONES on 09/26/19 1526 Insulin Detemir (Levemir Flextouch) 100 Unit/1 Ml Insuln.pen, 32 UNIT SQ DAILY, (Reported) Entered as Reported by: NYASIA QUIÑONES on 04/15/21 104 Insulin Lispro (Humalog Kwikpen) 200 Unit/1 Ml Insuln.pen, 18 UNITS SC BIDAC, (Reported) Entered as Reported by: NYASIA QUIÑONES on 04/15/21 104 Losartan Potassium (Losartan Potassium) 25 Mg Tablet, 25 MG PO DAILY Prescribed by: JODI REYNA on 04/16/21924 Metoprolol Succinate (Metoprolol Succinate) 100 Mg Tab.er.24h, 100 MG PO DAILY Prescribed by: JODI REYNA on 04/16/21924 Oxycodone HCl/Acetaminophen (Oxycodone-Acetaminophen 5-325) 1 Each Tablet, 1-2 EA PO Q4H PRN for PAIN-MODERATE (5-7), (Reported) Entered as Reported by: NYASIA QUIÑONES on 04/15/211045 [Hydrochlorothiazide] 12.5 MG CAP, 12.5 MG PO DAILY@0900 Prescribed by: JODI REYNA on 04/16/21 0925 Review of Systems Review of Systems Constitutional: see HPI EENTM: No Symptoms Reported Respiratory: No Symptoms Reported Cardiovascular: No Symptoms Reported Gastrointestinal: No Symptoms Reported Genitourinary: No Symptoms Reported Musculoskeletal: no symptoms reported Skin: no symptoms reported Psychiatric/Neurological: No Symptoms Reported (LANI CARO MD) All Other Systems Reviewed Negative Unless Noted: Yes (LANI CARO MD) Past Cyyhhqx-Ldffny-Nkxwko Hx Patient Social History Tobacco Use?: No Substance use?: No Alcohol Use?: No Pt feels they are or have been: No (LANI CARO MD) Immunizations Up To Date Tetanus Booster (TDap): Unknown First/Initial COVID19 Vaccinat: September COVID19 Vaccination [place]ison: OCTOBER 27 Third COVID19 Vaccination Date: SEPTEMBER 29 (LANI CARO MD) Seasonal Allergies Seasonal Allergies: No (LANI CARO MD) Past Medical History Surgery/Hospitalization HX: htn, chf,renal failure, constipation, iddm, high cholesterol. Surgeries: Yes (BACK SURGERY 2017 AT [facility]. KNEE SCOPE 20 YRS AGO) Cardiac, Neurological, Orthopedic Respiratory: Yes Pneumonia, Sleep Apnea Currently Using CPAP: Yes (DOESNT USE IT) Cardiac: Yes Hypertension Neurological: Yes Neuropathy Reproductive Disorders: No Genitourinary: Yes (LEFT KIDNEY CYST) Renal Failure Gastrointestinal: No Musculoskeletal: Yes Arthritis Endocrine: Yes Diabetes, Insulin dep HEENT: Yes (WEARS GLASSES) Cataract Cancer: No Psychosocial: No Integumentary: No Blood Disorders: No (LANI CARO MD) Family Medical History Cardiovascular disease 19 FATHER Completed stroke G8 BROTHER Diabetes mellitus G8 BROTHER Kidney disease G8 BROTHER Neoplasm 19 MOTHER Cancer, CAD Under 55 Years Old, Diabetes (LANI CARO MD) Physical Exam Vital Signs Vital Signs - First Documented 10/19/22 17:21 Temp 36.4 Pulse 56 Resp 18 B/P (MAP) 146/55 (85) Pulse Ox 95 (BURTON,SUMIT K DO) Vital Signs Capillary Refill : Less Than 3 Seconds (LANI CARO MD) Height, Weight, BMI Height: 5'7.00" Weight: 284lbs. 2.0oz. 128.306457ne; 41.00 BMI Method:Stated General Appearance: No Apparent Distress, WD/WN, Obese HEENT: PERRL/EOMI Neck: Normal Inspection Respiratory: Lungs Clear, Normal Breath Sounds, No Accessory Muscle Use, No Respiratory Distress Cardiovascular: Regular Rate, Rhythm, Normal Peripheral Pulses Gastrointestinal: Non Tender, Soft Extremity: Normal Inspection, Normal Range of Motion Neurologic/Psychiatric: Alert, Oriented x3, No Motor/Sensory Deficits, Normal Mood/Affect Skin: Normal Color, Warm/Dry (LANI CARO MD) Progress/Results/Core Measures Results/Orders Lab Results Laboratory Tests Test 10/19/22 17:10 10/19/22 17:18 10/19/22 20:05 10/19/22 20:22 Range/Units White Blood Count 9.3 4.3-11.0 10^3/uL Red Blood Count 4.61 4.30-5.52 10^6/uL Hemoglobin 13.1 L 13.3-17.7 g/dL Hematocrit 40 40-54 % Mean Corpuscular Volume 88 80-99 fL Mean Corpuscular Hemoglobin 28 25-34 pg Mean Corpuscular Hemoglobin Concent 32 32-36 g/dL Red Cell Distribution Width 13.2 10.0-14.5 % Platelet Count 195 130-400 10^3/uL Mean Platelet Volume 11.3 9.0-12.2 fL Immature Granulocyte % (Auto) 1 % Neutrophils (%) (Auto) 65 42-75 % Lymphocytes (%) (Auto) 23 12-44 % Monocytes (%) (Auto) 7 0-12 % Eosinophils (%) (Auto) 4 0-10 % Basophils (%) (Auto) 1 0-10 % Neutrophils # (Auto) 6.1 1.8-7.8 10^3/uL Lymphocytes # (Auto) 2.1 1.0-4.0 10^3/uL Monocytes # (Auto) 0.6 0.0-1.0 10^3/uL Eosinophils # (Auto) 0.3 0.0-0.3 10^3/uL Basophils # (Auto) 0.1 0.0-0.1 10^3/uL Immature Granulocyte # (Auto) 0.1 0.0-0.1 10^3/uL Prothrombin Time 14.2 12.2-14.7 SEC INR Comment 1.1 0.8-1.4 Activated Partial Thromboplast Time 30 24-35 SEC Sodium Level 139 135-145 MMOL/L Potassium Level 4.5 3.6-5.0 MMOL/L Chloride Level 103 98-107 MMOL/L Carbon Dioxide Level 22 21-32 MMOL/L Anion Gap 14 5-14 MMOL/L Blood Urea Nitrogen 53 H 7-18 MG/DL Creatinine 2.90 H 0.60-1.30 MG/DL Estimat Glomerular Filtration Rate 22 BUN/Creatinine Ratio 18 Glucose Level 166 H 70-105 MG/DL Calcium Level 8.9 8.5-10.1 MG/DL Magnesium Level 2.9 H 1.6-2.4 MG/DL Total Bilirubin 0.5 0.1-1.0 MG/DL Direct Bilirubin 0.3 0.0-0.3 MG/DL Indirect Bilirubin 0.2 MG/DL Aspartate Amino Transf (AST/SGOT) 20 5-34 U/L Alanine Aminotransferase (ALT/SGPT) 19 0-55 U/L Alkaline Phosphatase 62 40-136 U/L Troponin I 0.030 H 0.043 H <0.028 NG/ML B-Type Natriuretic Peptide 78.7 <100.0 PG/ML Total Protein 7.1 6.4-8.2 GM/DL Albumin 4.1 3.2-4.5 GM/DL Amylase Level 52 25-125 U/L Lipase 18 8-78 U/L Beta-Hydroxybutyrate (Chem panel) 0.14 0.00-0.27 MMOL/L Urine Color YELLOW Urine Clarity SL CLOUDY Urine pH 6.0 5-9 Urine Specific [place] 1.015 L 1.016-1.022 Urine Protein TRACE H NEGATIVE Urine Glucose (UA) 3+ H NEGATIVE Urine Ketones NEGATIVE NEGATIVE Urine Nitrite NEGATIVE NEGATIVE Urine Bilirubin NEGATIVE NEGATIVE Urine Urobilinogen 0.2 < = 1.0 MG/DL Urine Leukocyte Esterase 1+ H NEGATIVE Urine RBC (Auto) TRACE-I H NEGATIVE Urine RBC RARE /HPF Urine WBC 50-100 H /HPF Urine Squamous Epithelial Cells 10-25 H /HPF Urine Crystals NONE /LPF Urine Bacteria LARGE H /HPF Urine Casts NONE /LPF Urine Mucus NEGATIVE /LPF Urine Culture Indicated YES (SUMIT MANRIQUE DO) My Orders Orders - SUMIT MANRIQUE DO Chest 1 View, Ap/Pa Only (10/19/22 17:54) Amylase (10/19/22 17:54) Bnp [place] (10/19/22 17:54) Lipase (10/19/22 17:54) Magnesium (10/19/22 17:54) Protime With Inr (10/19/22 17:54) Partial Thromboplastin Time (10/19/22 17:54) Ua Culture If Indicated (10/19/22 17:54) Troponin I [place] (10/19/22 17:54) Ed Iv/Invasive Line Start (10/19/22 17:54) Ns Iv 1000 Ml (Sodium Chloride 0.9%) (10/19/22 18:00) Beta Hydroxybutyrate (10/19/22 17:54) Hemoglobin A1c (10/19/22 17:54) Liver Panel (10/19/22 17:54) Troponin I [place] (10/19/22 20:11) Urine Culture (10/19/22 20:05) Ceftriaxone 1 Gm Pre-Mix (Rocephin 1 Gm (10/19/22 20:49) (SUMIT MANRIQUE DO) Vital Signs/I&O 10/19/22 17:21 Temp 36.4 Pulse 56 Resp 18 B/P (MAP) 146/55 (85) Pulse Ox 95 (SUMIT MANRIQUE DO) Blood Pressure Mean: 85 Progress Progress Note : Time: 17:51 Progress Note Care passed to Dr. MANRIQUE with work-up pending at shift change. (LANI CARO MD) Progress Note : Progress Note 1800--ASSUMED CARE FROM DR. CARO, TEST RESULTS PENDING. VITALS ARE STABLE AT THIS TIME--BP 150/77, P 54, O2 SAT 98% ON RA, AND PT HAS NO COMPLAINTS OTHER THAN CHRONIC HIP AND KNEE PAIN HE STATES HE HAD A ROUTINE EXAM BY DR. MUNGUIA 3-4 WEEKS AGO--NO MEDICATION CHANGES BY HIM HE ALSO STATES HE SAW DR. CROWLEY 3-4 WEEKS AGO FOR ROUTINE EXAM, AND DID HAVE HIS PAIN MEDICATION CHANGED FROM HYDROCODONE TO OXYCODONE. 1999--PT CONTINUES TO HAVE NO COMPLAINTS, AND VITALS ARE STABLE. DAUGHTERS ARE HERE AND UPDATED THEM ON PT'S CONDITION AND PLAN OF CARE. REPEAT TROPONIN BEING ORDERED NOW. (SUMIT MANRIQUE DO) Initial ECG Impression Date: Oct 19, 2022 Initial ECG Impression Time: 17:30 Initial ECG Rate: 53 Initial ECG Rhythm: Normal Sinus Initial ECG Intervals CO interval 334 QRS 98 QTc 466 Initial ECG Impression: 1st Degree AV Block Initial ECG Comparisson: Unchanged (Unchanged from previous April 2021) Comment No ectopy noted, normal sinus rhythm, inverted T waves in leads I and aVL (LANI CARO MD) Diagnostic Imaging Comments CXR--PER RADIOLOGIST REPORT AT 1833 Comparison: 04/14/2021 Findings: No focal airspace disease in the visualized lungs. No pleural effusion or pneumothorax. Unchanged borderline enlargement of cardiac silhouette is likely accentuated due to portable technique. Mediastinal contours are normal. Impression: 1. No acute cardiopulmonary process by portable radiography. Reviewed: Reviewed by Me (SUMIT MANRIQUE DO) Departure Impression Primary Impression: Left against medical advice Additional Impressions: NSTEMI (non-ST elevated myocardial infarction) UTI (urinary tract infection) Acute on chronic renal insufficiency Disposition: AGAINST MEDICAL ADVICE Condition: Against Medical Advice Departure-Patient Inst. Referrals: LINSEY CROWLEY DO (PCP/Family) Primary Care Physician LANI CARO MD Oct 19, 2022 17:52 SUMIT MANRIQUE DO Oct 19, 2022 18:05
[2022-10-19] MEDS ORDERED: NS IV 1000 ML 1,000 ML IV SCH (18:00)
--- NOTE | 2022-10-19 18:12 | Diagnostic Imaging Report ---
CHEST 1 VIEW, AP/PA ONLY Indication: Weakness Comparison: 04/14/2021 Findings: No focal airspace disease in the visualized lungs. No pleural effusion or pneumothorax. Unchanged borderline enlargement of cardiac silhouette is likely accentuated due to portable technique. Mediastinal contours are normal. Impression: 1. No acute cardiopulmonary process by portable radiography. Dictated by: Dictated on workstation # [id number]
[2022-10-19 18:45] LABS: INR 1.1 (0.8-1.4); PROTHROMBIN TIME PATIENT 14.2 SEC (12.2-14.7)
[2022-10-19 18:46] LABS: ALBUMIN 4.1 GM/DL (3.2-4.5)
[2022-10-19 18:49] LABS: TOTAL PROTEIN 7.1 GM/DL (6.4-8.2)
[2022-10-19 18:51] LABS: BILIRUBIN,TOTAL 0.5 MG/DL (0.1-1.0)
[2022-10-19 18:55] LABS: BILIRUBIN,DIRECT 0.3 MG/DL (0.0-0.3); BILIRUBIN,INDIRECT 0.2 MG/DL; MAGNESIUM 2.9 MG/DL (1.6-2.4)
[2022-10-19 20:12] LABS: BILIRUBIN,URINE NEGATIVE (NEGATIVE); CLARITY,URINE SL CLOUDY; COLOR,URINE YELLOW; GLUCOSE, URINE (UA) 3+ (NEGATIVE); KETONES,URINE NEGATIVE (NEGATIVE); LEUKOCYTE ESTERASE ,URINE 1+ (NEGATIVE); NITRITE,URINE NEGATIVE (NEGATIVE); PROTEIN,URINE TRACE (NEGATIVE)
[2022-10-19 20:29] LABS: BACTERIA,URINE LARGE /HPF; RBC,URINE RARE /HPF; WBC,URINE 50-100 /HPF
[2022-10-19] MEDS ORDERED: cefTRIAXone 1 GM PRE-MIX 50 ML IV STA (20:49)
== END 2022-10-19 21:40 | disposition left against medical advice (07) ==
LOC: EDUNIT# 17:04 → ER 17:06
DX: N39.0 Urinary tract infection, site not specified (principal); I21.4 Non-ST elevation (NSTEMI) myocardial infarction; I13.0 Hypertensive heart and chronic kidney disease with heart failure and stage 1 through stage 4 chronic kidney disease, or unspecified chronic kidney disease; E11.22 Type 2 diabetes mellitus with diabetic chronic kidney disease; N18.9 Chronic kidney disease, unspecified; I50.9 Heart failure, unspecified; N17.9 Acute kidney failure, unspecified; G47.30 Sleep apnea, unspecified; Z99.89 Dependence on other enabling machines and devices
CPT/HCPCS: 36415; 71045; 80048; 80076; 81000; 82010; 82150; 83036; 83690; 83735; 83880; 84484; 85025; 85610; 85730; 87077; 87088; 87186; 93005